=== PATIENT | female | born 1945 | race Caucasian/White ===

== ENCOUNTER 2019-03-11 13:16 | Outpatient (RCR) | payer SELFPAY | END 2019-03-26 00:01 | LOC: GILAB 13:16 | PROVIDERS: Visit Provider Nurse Practitioner Family | DX: D63.8 Anemia in other chronic diseases classified elsewhere (principal) | CPT/HCPCS: 36430; 86850; 86900; 86901; 86902; 86920 ×2; 86922 ×2; G0463; P9016 ×2 ==

== ENCOUNTER 2019-04-19 06:06 | Outpatient (RCR) | payer MEDICARE, SELFPAY ==
[2019-04-19] VITALS (16 sets, daily range): BP systolic 122–164; BP diastolic 50–98; PULSE 69–80; RESP 18; TEMP 36.2–36.8; O2SAT 98; BMI 27.9
== END 2019-04-26 23:59 | disposition home or self-care (01) ==
LOC: GILAB 06:06
PROVIDERS: Visit Provider Family Medicine
DX: K74.60 Unspecified cirrhosis of liver (principal); D50.0 Iron deficiency anemia secondary to blood loss (chronic)
CPT/HCPCS: 36430; 86850; 86900; P9016

== ENCOUNTER 2019-05-10 22:45 | Emergency (ER) | payer MEDICARE, SELFPAY ==
[2019-05-10 22:48] VITALS: BP 163/76; PULSE 101; RESP 18; TEMP 36.6; O2SAT 97; BMI 26.2
--- NOTE | 2019-05-10 23:04 | W.ED.GENADLT ---
Documented by User: HAZEL Chavez 05/10/19 23:42 HPI - General Adult General: Chief complaint: General Medical Stated complaint: LOW BLOOD COUNT Time Seen by Provider: 05/10/19 22:50 History of Present Illness: HPI narrative: Patient was called at home and told that she had a hemoglobin of 4 and was told to come to the ER. Patient had transfusion of 3 units 2 weeks ago. She has had a total life history of 30 units. She has cirrhosis and does not make red blood cells. Patient states that she last be transferred to [facility] in [place] for a blood transfusion due to antibodies in her blood. MD complaint: anemia Onset (ago): year(s) Associated symptoms: Deny chest pain, dyspnea, headache(s), nausea, rash or vomiting Review of Systems Const: Reports: other (Weakness); Denies: fever, chills or body aches Eyes: Denies: change in vision or blurry vision ENMT: Denies: throat pain or nasal congestion Card: Denies: chest pain or shortness of breath on exertion Resp: Denies: shortness of breath, productive cough or non-productive cough GI: Denies: abdominal pain, nausea or vomiting Musc: Denies: extremity pain Skin/Breast: Denies: rash Neuro: Denies: headache Psych: Denies: anxiety or depression Tej/Lymph: Denies: easy bruising PFSH ED PFSH: Social History Smoking and tobacco status: never smoked Physical Exam Const: COMMON NORMALS: no apparent distress, average body habitus and oriented x3 HENMT: COMMON NORMALS: normocephalic HEAD & SCALP: normal to inspection and normocephalic FACE & SINUS: normal facial exam Eye: GENERAL EYE: normal appearance of both eyes CONJUNCTIVA: Yes conjunctiva abnormal (Pale bilateral) Neck/C-Spine: COMMON NORMALS: no JVD Chest: COMMONS NORMALS: inspection of chest normal Resp: COMMON NORMALS: normal respiratory effort and clear to auscultation bilaterally AUSCULTATION: clear to auscultation bilaterally Cardio: COMMON NORMALS: no JVD, regular rate and regular rhythm RATE: regular rate RHYTHM: regular rhythm OTHER: Decreased cap refill GI: COMMON NORMALS: normal to inspection, nondistended, normoactive bowel sounds Extremity: COMMON NORMALS: normal to inspection and full ROM Neuro: COMMON NORMALS: oriented x3 Course Vital Signs: Vital signs: Vital Signs Temperature 98.6 F 05/11/19 00:34 Pulse Rate 77 05/11/19 00:34 Respiratory Rate 16 05/11/19 00:34 Blood Pressure 135/66 05/11/19 00:34 Pulse Oximetry 96 05/11/19 00:34 MDM - General Adult MDM Narrative: Medical decision making narrative: Discussed case with Dr. Chand. he is setting up transfer to [facility] for tranfusion that we cannot do here ( due to antibody complexities) Lab Data: Labs: Lab Results 05/10/19 Range/Units 23:12 WBC 1.9 L (4.0-10.0) 10^3/ uL RBC 2.36 L (4.1-5.3) 10^6/u L Hgb 4.4 L* (11.5-15.3) g/dL Hct 16.5 L* (37.0-47.0) % MCV 69.9 L (81-99) fL MCH 18.6 L (28.0-34.0) pg MCHC 26.7 L (30.0-36.0) g/dL RDW 19.8 H (12.1-15.1) % Plt Count 125 L (130-400) 10^3/c mm MPV 9.5 (7.4-10.4) fL Neut % (Auto) 45.7 % Lymph % (Auto) 35.6 % [place] % (Auto) 14.1 % Eos % (Auto) 3.1 % Baso % (Auto) 1.0 % Neut # (Auto) 0.9 L (1.8-7.7) 10^3/u L Lymph # (Auto) 0.7 L (0.8-4.8) 10^3/u L [place] # (Auto) 0.3 (0.2-0.9) 10^3/u L Eos # (Auto) 0.1 (0.0-0.8) 10^3/u L Baso # (Auto) 0.0 (0.0-0.1) 10^3/u L Nucleated RBC % (a uto) 0 % Nucleated RBCs # 0.0 /100WBC Discharge Plan Discharge Patient Disposition: Xfer Other Referrals: Anjel Diaz [Primary Care Provider] - Discharge Date/Time: 05/11/19 01:46 Coding Level of Care Code ED Flight Teacher for Chg Fwd Exam Comprehensive Documented by User: Alise Chand MD 05/11/19 02:53 HPI - General Adult General: Chief complaint: General Medical Stated complaint: LOW BLOOD COUNT Time Seen by Provider: 05/10/19 22:50 PFSH ED PFSH: Social History Smoking and tobacco status: never smoked Course Vital Signs: Vital signs: Vital Signs Temperature 98.6 F 05/11/19 00:34 Pulse Rate 77 05/11/19 00:34 Respiratory Rate 16 05/11/19 00:34 Blood Pressure 135/66 05/11/19 00:34 Pulse Oximetry 96 05/11/19 00:34 MDM - General Adult MDM Narrative: Medical decision making narrative: Patient presents here with anemia that is been chronic in nature. She has antibodies and we will have blood transfusion. She was gets transfusions at [facility]. I spoke to ER physician at [facility] and will transfer there for higher level of care for this transfusion. She has no signs of acute blood loss and her blood count has been normal here. Lab Data: Labs: Lab Results 05/10/19 Range/Units 23:12 WBC 1.9 L (4.0-10.0) 10^3/ uL RBC 2.36 L (4.1-5.3) 10^6/u L Hgb 4.4 L* (11.5-15.3) g/dL Hct 16.5 L* (37.0-47.0) % MCV 69.9 L (81-99) fL MCH 18.6 L (28.0-34.0) pg MCHC 26.7 L (30.0-36.0) g/dL RDW 19.8 H (12.1-15.1) % Plt Count 125 L (130-400) 10^3/c mm MPV 9.5 (7.4-10.4) fL Neut % (Auto) 45.7 % Lymph % (Auto) 35.6 % [place] % (Auto) 14.1 % Eos % (Auto) 3.1 % Baso % (Auto) 1.0 % Neut # (Auto) 0.9 L (1.8-7.7) 10^3/u L Lymph # (Auto) 0.7 L (0.8-4.8) 10^3/u L [place] # (Auto) 0.3 (0.2-0.9) 10^3/u L Eos # (Auto) 0.1 (0.0-0.8) 10^3/u L Baso # (Auto) 0.0 (0.0-0.1) 10^3/u L Nucleated RBC % (a uto) 0 % Nucleated RBCs # 0.0 /100WBC Discharge Plan Discharge Patient Disposition: Xfer Other Referrals: Anjel Diaz [Primary Care Provider] - Discharge Date/Time: 05/11/19 01:46 Coding Level of Care Code ED Flight Teacher for Chg Fwd Exam Comprehensive
[2019-05-10 23:19] LABS: Eosinophils # 0.1 10^3/uL (0.0-0.8); Eosinophils % 3.1 %; Lymphocytes # 0.7 10^3/uL (0.8-4.8); Lymphocytes % 35.6 %; Mean Corpuscular HGB Conc 26.7 g/dL (30.0-36.0); Mean Corpuscular Hemoglobin 18.6 pg (28.0-34.0); Mean Corpuscular Volume 69.9 fL (81-99); Mean Platelet Volume 9.5 fL (7.4-10.4); Monocytes # 0.3 10^3/uL (0.2-0.9); Monocytes % 14.1 %; Neutrophils # 0.9 10^3/uL (1.8-7.7); Neutrophils % 45.7 %; Nucleated Red Blood Cells % 0 %; Platelet Count 125 10^3/cmm (130-400); Red Blood Count 2.36 10^6/uL (4.1-5.3); Red Cell Distribution Width 19.8 % (12.1-15.1); White Blood Count 1.9 10^3/uL (4.0-10.0)
[2019-05-10 23:23] LABS: Hematocrit 16.5 % (37.0-47.0); Hemoglobin 4.4 g/dL (11.5-15.3)
[2019-05-11 00:34] VITALS: BP 135/66; PULSE 77; RESP 16; TEMP 37; O2SAT 96
== END 2019-05-11 01:46 | disposition other institution (70) ==
PROVIDERS: Nurse Practitioner Family; Emergency Provider Emergency Medicine
DX: D64.9 Anemia, unspecified (principal); K74.60 Unspecified cirrhosis of liver
CPT/HCPCS: 85025; 99281; 99283

== ENCOUNTER 2020-04-02 09:39 | Outpatient (RCR) | payer MEDICARE, SELFPAY ==
[2020-04-02] VITALS (10 sets, daily range): BP systolic 124–161; BP diastolic 56–94; PULSE 71–84; RESP 18–22; TEMP 36.5–37.3; O2SAT 98–99; BMI 25.7
[2020-04-02 10:07] LABS: Glucose Point of Care 295 mg/dL (70-110)
== END 2020-04-26 23:59 | disposition home or self-care (01) ==
LOC: OPS 09:39
PROVIDERS: Visit Provider Nurse Practitioner Family
DX: K74.60 Unspecified cirrhosis of liver (principal); R58 Hemorrhage, not elsewhere classified; E11.9 Type 2 diabetes mellitus without complications; Z79.4 Long term (current) use of insulin
CPT/HCPCS: 36415; 36416; 36430; 82962; 86850; 86900; 86920; P9016

== ENCOUNTER 2020-05-01 11:25 | Outpatient (CLI) | payer MEDICARE, SELFPAY ==
[2020-05-01 11:45] LABS: Mean Corpuscular HGB Conc 26.6 g/dL (30.0-36.0); Mean Corpuscular Hemoglobin 19.8 pg (28.0-34.0); Mean Corpuscular Volume 74.6 fL (81-99); Mean Platelet Volume 9.2 fL (7.4-10.4); Platelet Count 142 10^3/cmm (130-400); Red Blood Count 2.52 10^6/uL (4.1-5.3); White Blood Count 2.9 10^3/uL (4.0-10.0)
[2020-05-01 11:59] LABS: Hematocrit 18.8 % (37.0-47.0)
[2020-05-01 13:55] LABS: Absolute Segmented Neutrophil 1.9 10/cmm (1.6-7.1); Eosinophils 2 %; Hypochromasia 3+; Lymphocytes 23 %; Monocytes Absolute 0.3 10^3/cmm (0.1-0.6); Polychromasia 2+; Segmented Neutrophils 65 %; Total Cells Counted 100 (0-100)
[2020-05-01 13:56] LABS: Absolute Neutrophil 1.9 10^3/cmm (1.4-6.5); Platelet Estimate Normal (Normal)
== END 2020-05-01 11:26 | disposition home or self-care (01) ==
LOC: LAB 11:26
PROVIDERS: Visit Provider Nurse Practitioner Family
DX: D50.0 Iron deficiency anemia secondary to blood loss (chronic) (principal)
CPT/HCPCS: 36415; 85007; 85027; 86905

== ENCOUNTER 2020-05-02 08:26 | Observation (INO) | payer MEDICARE, SELFPAY ==
[2020-05-02] VITALS (12 sets, daily range): BP systolic 102–148; BP diastolic 46–78; PULSE 69–79; RESP 16–22; TEMP 36.8–37.1; O2SAT 92–97; BMI 26.6
--- NOTE | 2020-05-02 10:35 | PC.NURSE ---
1ST UNIT 1ST UNIT OF PRBC UP - VERIFIED PER COMPUTER VERIFICATIONN - INFUSION BEGAN AT 50ML/HR - ERWIN WELL UNIT [id number]
--- NOTE | 2020-05-02 13:51 | PC.NURSE ---
2ND UNIT OF PRBC 2ND UNIT OF PRBC BEGAN AT 50/HR - VSS - TOLERATED 1ST UNIT WITHOUT DIFFICULTY - WILL MONITOR UNIT # [id number]
[2020-05-02] MEDS: sodium chloride 0.9% (100 ml) 100 ML 125 ML ×3 (13:54→17:54)
--- NOTE | 2020-05-02 16:23 | PC.NURSE ---
3RD UNIT 3RD UNIT - TRANSFUSION BEGAN AT 50/HR - VSS - WILL CONTINUE TO MONITOR - UNIT #[id number]
--- NOTE | 2020-05-02 19:34 | PC.NURSE ---
TRANSFUSION END Blood finished and flushed with NS. IV was discontinued. VS check done. Pts called and will be here shortly. Pt wanted to go to ER to wait for him. Nurses aide took pt to ER via wheelchair. No c/o on discharge
== END 2020-05-02 19:45 | disposition home or self-care (01) ==
LOC: MEDSURG 08:28
PROVIDERS: Admitting Provider Internal Medicine; Visit Provider Nurse Practitioner Family
DX: D50.0 Iron deficiency anemia secondary to blood loss (chronic) (principal)
CPT/HCPCS: 36430; 86850; 86900; 86902; 86920; G0378; P9016

== ENCOUNTER 2020-06-01 11:29 | Outpatient (CLI) | payer MEDICARE, SELFPAY ==
[2020-06-01 12:06] LABS: Basophils # 0.1 10^3/uL (0.0-0.1); Basophils % 1.3 %; Eosinophils # 0.1 10^3/uL (0.0-0.8); Eosinophils % 1.8 %; Hematocrit 24.4 % (37.0-47.0); Hemoglobin 6.6 g/dL (11.5-15.3); Lymphocytes % 25.3 %; Mean Corpuscular Hemoglobin 19.4 pg (28.0-34.0); Mean Corpuscular Volume 71.8 fL (81-99); Mean Platelet Volume 9.1 fL (7.4-10.4); Monocytes # 0.4 10^3/uL (0.2-0.9); Monocytes % 11.1 %; Neutrophils # 2.36 10^3/uL (1.8-7.7); Neutrophils % 59.7 %; Nucleated Red Blood Cells % 0 %; Platelet Count 222 10^3/cmm (130-400); Red Cell Distribution Width 19.1 % (12.1-15.1)
[2020-06-01 12:59] LABS: Alanine Aminotransferase 13 U/L (0-33); Albumin Level 4.3 g/dL (3.5-5.2); Alkaline Phosphatase 90 IU/L (35-105); Anion Gap 17.9 (5-19); Aspartate Amino Transferase 20 U/L (0-32); Blood Urea Nitrogen 20 mg/dL (8-23); Calcium 9.4 mg/dL (8.5-10.5); Carbon Dioxide 20 mmol/L (22-29); Chloride 99 mmol/L (98-107); Free T4 Free Thyroxine 1.24 ng/dL (0.82-1.77); Globulin 3.6 g/dL (1.3-4.6); Glucose 284 mg/dL (65-115); Lipase 61 U/L (13-60); Osmolality Calculated 287 mOsm/kg (285-295); Potassium 4.9 mmol/L (3.5-5.1); Sodium 132 mmol/L (136-145); Thyroid Stimulating Hormone 0.96 uIU/mL (0.27-4.20); Total Bilirubin 0.7 mg/dL (0.15-1.2); Total Protein 7.9 g/dL (6.6-8.7)
== END 2020-06-01 11:30 | disposition home or self-care (01) ==
PROVIDERS: Visit Provider Nurse Practitioner Family
DX: I10 Essential (primary) hypertension (principal); E11.9 Type 2 diabetes mellitus without complications
CPT/HCPCS: 36415; 80053; 83690; 84439; 84443; 85025

== ENCOUNTER 2020-06-05 07:08 | Observation (INO) | payer MEDICARE, SELFPAY ==
[2020-06-04 12:23] LABS: Hematocrit 21.6 % (37.0-47.0)
[2020-06-04 12:33] LABS: Hemoglobin 5.6 g/dL (11.5-15.3)
[2020-06-05] VITALS (14 sets, daily range): BP systolic 117–141; BP diastolic 43–67; PULSE 74–81; RESP 16–18; TEMP 36.7–37.4; O2SAT 94–100
--- NOTE | 2020-06-05 07:09 | ED_ITS ---
HPI - General Adult General: Chief complaint: Recheck/Abnormal Lab/Rx Stated complaint: Surgical stated patient was to critical to treat Time Seen by Provider: 06/05/20 07:08 History of Present Illness: HPI narrative: 74-year-old female presents emergency room from outpatient surgery. Her hemoglobin drawn yesterday was 5.6. Patient is extremely hard of hearing and is difficult to get any significant history from her he does admit to getting regular transfusions although she cannot tell me why. 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 1 year ago she was transferred to [facility] from our ER because of difficulty with crossmatching blood. In the interim she was able to tell me she gets blood transfusion about monthly. Onset (ago): year(s) Relieving factors: none Exacerbating factors: none Associated symptoms: Deny chest pain, confusion, cough, diaphoresis, decreased appetite, dyspnea, fevers/chills, headache(s), malaise, nausea, rash, palpitations, seizures, short of breath, syncope, vomiting or weakness Treatments prior to arrival: none Review of Systems Const: Denies: malaise or diaphoresis ENMT: Denies: throat pain, ear or mastoid pain, nasal discharge or nasal congestion Card: Denies: chest pain, palpitations or syncope Resp: Denies: dyspnea GI: Denies: nausea or vomiting : Denies: flank pain, difficulty voiding, dysuria, urinary frequency or urinary urgency Skin/Breast: Denies: rash Neuro: Denies: headache(s) or confusion [facility] ED PFSH: Medical History Anemia AVM (arteriovenous malformation) of colon with hemorrhage MENARD (nonalcoholic steatohepatitis) Social History Smoking and tobacco status: never smoked Physical Exam Const: COMMON NORMALS: no acute distress GENERAL APPEARANCE: cooperative and comfortable ORIENTATION/CONSCIOUSNESS: Yes awake, Yes oriented to person, Yes oriented to place and Yes oriented to time HENMT: COMMON NORMALS: normocephalic, atraumatic and hearing grossly normal bilaterally HEAD & SCALP: normocephalic and atraumatic Neck/C-Spine: COMMON NORMALS: no JVD Resp: COMMON NORMALS: normal respiratory effort, No retractions, No use of accessory muscles and clear to auscultation bilaterally AUSCULTATION: clear to auscultation bilaterally Cardio: COMMON NORMALS: no JVD, regular rate, regular rhythm and No murmurs present (Cardio) RATE: regular rate RHYTHM: regular rhythm GI: COMMON NORMALS: Soft to palpation and No hepatosplenomegaly present AUSCULTATION: Yes normoactive bowel sounds PALPATION: Yes Soft to palpation, No Tenderness to palpation present (GI), No Guarding due to palpation present (GI) and Yes No hepatosplenomegaly present Extremity: COMMON NORMALS: normal to inspection, capillary refill normal, no clubbing, cyanosis or edema, no calf tenderness and no pedal edema Neuro: SENSORIUM/ORIENTATION: Yes oriented to person, Yes oriented to place and Yes oriented to time Skin: COMMON NORMALS: no rashes or lesions noted GENERAL SKIN EXAM: no rashes or lesions noted Course Vital Signs: Vital signs: Vital Signs Temperature 98.5 F 06/05/20 08:29 Pulse Rate 78 06/05/20 08:45 Respiratory Rate 18 06/05/20 08:45 Blood Pressure 117/48 06/05/20 08:45 Pulse Oximetry 97 06/05/20 08:45 MDM - General Adult MDM Narrative: Medical decision making narrative: Patient will be placed in outpatient a bed. The nurse practitioner already made arrangements-cross for 2 units. Unfortunately because of policy she cannot be transfused an outpatient a shawanda discussed Dr. Ceja will make her outpatient blood transfusion anticipate discharge. Also discussed with her primary caregiver so that in the future we can hopefully make this process more smooth for the patient and make her a direct outpatient to bed through the hospitalist program. Gave her the contact information for the hospitalist coordinator. Lab Data: Labs: Lab Results 06/04/20 06/04/20 06/05/20 Range/Units 11:45 11:45 07:30 WBC 2.8 L (4.0-10.0) 10^3/ uL RBC 3.03 L (4.1-5.3) 10^6/u L Hgb 5.6 L* 5.8 L* (11.5-15.3) g/dL Hct 21.6 L 21.3 L (37.0-47.0) % MCV 70.3 L (81-99) fL MCH 19.1 L (28.0-34.0) pg MCHC 27.2 L (30.0-36.0) g/dL RDW 18.4 H (12.1-15.1) % Plt Count 157 (130-400) 10^3/c mm MPV 8.9 (7.4-10.4) fL Neut % (Auto) 54.6 % Lymph % (Auto) 28.0 % [place] % (Auto) 11.6 % Eos % (Auto) 2.9 % Baso % (Auto) 1.8 % Neut # (Auto) 1.50 L (1.8-7.7) 10^3/u L Lymph # (Auto) 0.8 (0.8-4.8) 10^3/u L [place] # (Auto) 0.3 (0.2-0.9) 10^3/u L Eos # (Auto) 0.1 (0.0-0.8) 10^3/u L Baso # (Auto) 0.1 (0.0-0.1) 10^3/u L Nucleated RBC % (a uto) 0 % Nucleated RBCs # 0.0 /100WBC Sodium (136-145) mmol/L Potassium (3.5-5.1) mmol/L Chloride (98-107) mmol/L Carbon Dioxide (22-29) mmol/L Anion Gap (5-19) BUN (8-23) mg/dL Creatinine (0.5-0.9) mg/dL GFR Calculation Glucose (65-115) mg/dL Calculated Osmolal ity (285-295) mOsm/k g Calcium (8.5-10.5) mg/dL Total Bilirubin (0.15-1.2) mg/dL AST (0-32) U/L ALT (0-33) U/L Alkaline Phosphata se (35-105) IU/L Total Protein (6.6-8.7) g/dL Albumin (3.5-5.2) g/dL Globulin (1.3-4.6) g/dL Blood Type O Positive Rho(D) Type Positive / 4+ Antibody Screen Negative Crossmatch See Detail 03/12/21 Range/Units 07:30 WBC (4.0-10.0) 10^3/ uL RBC (4.1-5.3) 10^6/u L Hgb (11.5-15.3) g/dL Hct (37.0-47.0) % MCV (81-99) fL MCH (28.0-34.0) pg MCHC (30.0-36.0) g/dL RDW (12.1-15.1) % Plt Count (130-400) 10^3/c mm MPV (7.4-10.4) fL Neut % (Auto) % Lymph % (Auto) % [place] % (Auto) % Eos % (Auto) % Baso % (Auto) % Neut # (Auto) (1.8-7.7) 10^3/u L Lymph # (Auto) (0.8-4.8) 10^3/u L [place] # (Auto) (0.2-0.9) 10^3/u L Eos # (Auto) (0.0-0.8) 10^3/u L Baso # (Auto) (0.0-0.1) 10^3/u L Nucleated RBC % (a uto) % Nucleated RBCs # /100WBC Sodium 131 L (136-145) mmol/L Potassium 4.4 (3.5-5.1) mmol/L Chloride 99 (98-107) mmol/L Carbon Dioxide 21 L (22-29) mmol/L Anion Gap 15.4 (5-19) BUN 17 (8-23) mg/dL Creatinine 0.8 (0.5-0.9) mg/dL GFR Calculation Not Reportable Glucose 169 H (65-115) mg/dL Calculated Osmolal ity 277 L (285-295) mOsm/k g Calcium 9.1 (8.5-10.5) mg/dL Total Bilirubin 0.6 (0.15-1.2) mg/dL AST 19 (0-32) U/L ALT 12 (0-33) U/L Alkaline Phosphata se 79 (35-105) IU/L Total Protein 7.5 (6.6-8.7) g/dL Albumin 4.3 (3.5-5.2) g/dL Globulin 3.2 (1.3-4.6) g/dL Blood Type Rho(D) Type Antibody Screen Crossmatch Discharge Plan Discharge Patient Disposition: Placed in Observation Admit Provider: Yovanny Proctor Clinical Impression: MENARD (nonalcoholic steatohepatitis), Anemia, AVM (arteriovenous malformation) of colon with hemorrhage Condition: Stable Coding Level of Care Code ED Food [employer] Nutrition Services Supervisor for Erika Camacho
--- NOTE | 2020-06-05 07:18 | ECG_ITS ---
[facility] Test Date: 2020-06-05 Pat Name: Martha Moore Department: Room: Gender: Female Capsule Inspector: : 1945 Requested By: Ramone Parra Order Number: [id number] Reading MD: RIGO ALFORD Measurements Intervals [place] Rate: 79 P: 38 OK: 182 QRS: -25 QRSD: 100 T: 79 QT: 363 QTc: 418 Interpretive Statements SINUS RHYTHM LEFT VENTRICULAR HYPERTROPHY AND ST-T CHANGE [VOLTAGE CRITERIA PLUS ST/T ABNORMALITY] POSSIBLE ANTEROSEPTAL MYOCARDIAL INFARCTION , OF INDETERMINATE AGE [30 ms Q WAVE IN V1-V4] Compared to ECG 11/28/2018 04:17:55 Left ventricular hypertrophy now present ST (T wave) deviation now present Myocardial infarct finding now present T-wave abnormality no longer present Electronically Signed On 06-05-2020 19:24:48 LOCOMOTIVE OPERATOR by RIGO ALFORD [id number]
[2020-06-05 07:36] LABS: Basophils # 0.1 10^3/uL (0.0-0.1); Basophils % 1.8 %; Eosinophils # 0.1 10^3/uL (0.0-0.8); Eosinophils % 2.9 %; Hematocrit 21.3 % (37.0-47.0); Lymphocytes # 0.8 10^3/uL (0.8-4.8); Mean Corpuscular HGB Conc 27.2 g/dL (30.0-36.0); Mean Corpuscular Hemoglobin 19.1 pg (28.0-34.0); Mean Corpuscular Volume 70.3 fL (81-99); Mean Platelet Volume 8.9 fL (7.4-10.4); Monocytes # 0.3 10^3/uL (0.2-0.9); Monocytes % 11.6 %; Neutrophils % 54.6 %; Nucleated Red Blood Cells % 0 %; Platelet Count 157 10^3/cmm (130-400); Red Blood Count 3.03 10^6/uL (4.1-5.3); Red Cell Distribution Width 18.4 % (12.1-15.1); White Blood Count 2.8 10^3/uL (4.0-10.0)
[2020-06-05 07:37] LABS: Hemoglobin 5.8 g/dL (11.5-15.3)
[2020-06-05 08:00] LABS: Add Urine Microscopic? YES; Bilirubin Urine Neg (Negative); Blood Urine Neg (Negative); Glucose Urine UA Norm (Normal); Ketones Urine Negative (Negative); Leukocyte Esterase Urine 2+ (Negative); Nitrate Urine Negative (Negative); Protein Urine Neg (Negative); Urine Appearance SL Hazy (CLEAR); Urine Color Straw (Yellow); Urobilinogen Urine Norm (Negative); pH Urine 5 (5-7)
[2020-06-05 08:01] LABS: Add Urine Culture? Yes; Bacteria Urine 2+ /hpf; WBC Urine 25-40 /hpf (0-5)
[2020-06-05 08:05] LABS: Alanine Aminotransferase 12 U/L (0-33); Albumin Level 4.3 g/dL (3.5-5.2); Alkaline Phosphatase 79 IU/L (35-105); Anion Gap 15.4 (5-19); Aspartate Amino Transferase 19 U/L (0-32); Blood Urea Nitrogen 17 mg/dL (8-23); Calcium 9.1 mg/dL (8.5-10.5); Carbon Dioxide 21 mmol/L (22-29); Chloride 99 mmol/L (98-107); Globulin 3.2 g/dL (1.3-4.6); Glucose 169 mg/dL (65-115); Osmolality Calculated 277 mOsm/kg (285-295); Potassium 4.4 mmol/L (3.5-5.1); Sodium 131 mmol/L (136-145); Total Bilirubin 0.6 mg/dL (0.15-1.2); Total Protein 7.5 g/dL (6.6-8.7)
[2020-06-05] MEDS: sodium chloride 0.9% (100 ml) 100 ML ×2 (08:17→13:37)
[2020-06-05] MEDS: cefTRIAXone 1,000 MG in lidocaine 1% 2.1 ML 1 MG IM (08:38)
--- NOTE | 2020-06-05 14:09 | PC.NURSE ---
Patient discharged at this time, in the care of her son in stable condition. IV catheter removed tip intact. Patient tolerated well.
== END 2020-06-05 14:10 | disposition home or self-care (01) ==
LOC: ER 07:11 → MEDSURG 08:20
PROVIDERS: Admitting Provider Internal Medicine; Emergency Provider Family Medicine; PCP Nurse Practitioner Family; Visit Provider Internal Medicine
DX: K75.81 Nonalcoholic steatohepatitis (NASH) (principal); D63.8 Anemia in other chronic diseases classified elsewhere; Q27.33 Arteriovenous malformation of digestive system vessel
CPT/HCPCS: 36430; 80053; 81001; 85014; 85018; 85025; 86850; 86900; 86905; 86920; 87077; 87086; 87186; 93005; 96372; 99285; G0378; J0696; P9016

== ENCOUNTER → 2020-07-01 07:02 | Day surgery (SDC) | payer MEDICARE, SELFPAY ==
[2020-06-30 11:09] LABS: Hematocrit 22.7 % (37.0-47.0)
[2020-07-01] VITALS (12 sets, daily range): BP systolic 129–157; BP diastolic 52–69; PULSE 72–85; RESP 18–20; TEMP 36.1–36.6; O2SAT 96–99
[2020-07-01] MEDS: sodium chloride 0.9% (100 ml) 100 ML 10 ML (07:43)
[2020-07-01] MEDS: sodium chloride 0.9% 100 mL Bag IV (10:00)
--- NOTE | 2020-07-01 10:01 | PC.NURSE ---
First of three units of PRBC's complete. Pt tolerated well. VSS. Lungs clear. Second unit of PRBC's infusing without difficulty. Call light within reach.
--- NOTE | 2020-07-01 12:20 | PC.NURSE ---
Second unit of PRBC's complete. VSS. Lungs remain clear. Third and final unit infusing without difficulty. No signs of reaction noted. Pt just finished lunch and is resting in chair. Call light within reach.
== END ==
PROVIDERS: PCP Nurse Practitioner Family; Visit Provider Nurse Practitioner Family
DX: K74.60 Unspecified cirrhosis of liver (principal)
CPT/HCPCS: 36430; 85014; 85018; 86850; 86900; 86920; P9016

== ENCOUNTER 2020-07-20 08:36 | Outpatient (CLI) | payer MEDICARE, SELFPAY ==
[2020-07-20 09:09] LABS: Hematocrit 24.5 % (37.0-47.0); Mean Corpuscular HGB Conc 28.6 g/dL (30.0-36.0); Mean Corpuscular Hemoglobin 21.1 pg (28.0-34.0); Mean Platelet Volume 8.5 fL (7.4-10.4); Platelet Count 150 10^3/cmm (130-400); Red Blood Count 3.31 10^6/uL (4.1-5.3); Red Cell Distribution Width 21.5 % (12.1-15.1); White Blood Count 2.7 10^3/uL (4.0-10.0)
[2020-07-20 09:28] LABS: Absolute Neutrophil 1.8 10^3/cmm (1.4-6.5); Absolute Segmented Neutrophil 1.7 10/cmm (1.6-7.1); Band Neutrophils Absolute 0.1 10^3/cmm (0.0-1.2); Eosinophils 3 %; Lymphocytes 29 %; Lymphocytes Absolute 0.8 10^3/cmm (1.2-3.4); Monocytes Absolute 0.1 10^3/cmm (0.1-0.6); Platelet Estimate Decreased (Normal); Segmented Neutrophils 64 %; Total Cells Counted 100 (0-100)
== END 2020-07-20 08:37 | disposition home or self-care (01) ==
LOC: LAB 08:41
PROVIDERS: PCP Nurse Practitioner Family; Visit Provider Nurse Practitioner Family
DX: D50.0 Iron deficiency anemia secondary to blood loss (chronic) (principal)
CPT/HCPCS: 85007; 85027

== ENCOUNTER → 2020-07-22 06:43 | Day surgery (SDC) | payer MEDICARE, SELFPAY ==
[2020-07-22] VITALS (11 sets, daily range): BP systolic 125–149; BP diastolic 53–71; PULSE 69–83; RESP 16–18; TEMP 35.8–36.6; O2SAT 96–98
[2020-07-22] MEDS: sodium chloride 0.9% (100 ml) 100 ML 10 ML IV ×2 (07:30→09:20)
--- NOTE | 2020-07-22 11:28 | PC.NURSE ---
1121 Two units PRBC's infused without signs of reaction. VSS. Lungs clear. Pt states she feels well.
== END ==
PROVIDERS: PCP Nurse Practitioner Family; Visit Provider Nurse Practitioner Family
DX: K76.9 Liver disease, unspecified (principal)
CPT/HCPCS: 36415; 36430; 86850; 86900; 86920; P9016

== ENCOUNTER 2020-08-10 08:13 | Outpatient (CLI) | payer MEDICARE, SELFPAY ==
[2020-08-10 08:51] LABS: Basophils # 0.1 10^3/uL (0.0-0.1); Basophils % 1.8 %; Eosinophils # 0.1 10^3/uL (0.0-0.8); Eosinophils % 3.6 %; Hematocrit 27.2 % (37.0-47.0); Hemoglobin 7.7 g/dL (11.5-15.3); Lymphocytes # 0.7 10^3/uL (0.8-4.8); Lymphocytes % 25.1 %; Mean Corpuscular HGB Conc 28.3 g/dL (30.0-36.0); Mean Corpuscular Hemoglobin 21.6 pg (28.0-34.0); Mean Corpuscular Volume 76.4 fL (81-99); Mean Platelet Volume 8.9 fL (7.4-10.4); Monocytes # 0.3 10^3/uL (0.2-0.9); Neutrophils # 1.67 10^3/uL (1.8-7.7); Neutrophils % 59.8 %; Nucleated Red Blood Cells % 0 %; Platelet Count 141 10^3/cmm (130-400); Red Blood Count 3.56 10^6/uL (4.1-5.3); Red Cell Distribution Width 20.5 % (12.1-15.1); White Blood Count 2.8 10^3/uL (4.0-10.0)
== END 2020-08-10 08:14 | disposition home or self-care (01) ==
LOC: LAB 08:22
PROVIDERS: PCP Nurse Practitioner Family; Visit Provider Nurse Practitioner Family
DX: D50.0 Iron deficiency anemia secondary to blood loss (chronic) (principal)
CPT/HCPCS: 36415; 85025

== ENCOUNTER 2020-08-27 18:34 | Outpatient (CLI) | payer MEDICARE, SELFPAY ==
[2020-08-27] VITALS (11 sets, daily range): BP systolic 106–129; BP diastolic 50–70; PULSE 69–76; RESP 15–18; TEMP 25.5–37.1; O2SAT 94–97; BMI 26.6
[2020-08-27 12:39] LABS: Basophils % 0.9 %; Eosinophils # 0.1 10^3/uL (0.0-0.8); Eosinophils % 3.7 %; Lymphocytes # 0.5 10^3/uL (0.8-4.8); Lymphocytes % 25.2 %; Mean Corpuscular Hemoglobin 20.4 pg (28.0-34.0); Mean Corpuscular Volume 72.7 fL (81-99); Mean Platelet Volume 9.1 fL (7.4-10.4); Monocytes # 0.2 10^3/uL (0.2-0.9); Monocytes % 10.7 %; Neutrophils # 1.25 10^3/uL (1.8-7.7); Neutrophils % 58.6 %; Nucleated Red Blood Cells % 0 %; Platelet Count 114 10^3/cmm (130-400); Red Blood Count 2.75 10^6/uL (4.1-5.3); Red Cell Distribution Width 18.8 % (12.1-15.1); White Blood Count 2.1 10^3/uL (4.0-10.0)
[2020-08-27 13:07] LABS: C Reactive Protein 3.3 mg/L (0.0-4.9); Iron 8 ug/dL (37-145); Percent Saturation 2.1 % (20-50); Total Iron Binding Capacity 372 mcg/dl; Unsaturated Iron Binding 364 ug/dL (112-347)
[2020-08-27 13:30] LABS: Hemoglobin 5.6 g/dL (11.5-15.3)
[2020-08-27 13:40] LABS: Erythrocyte Sedimentation Rate 94 mm/hr (0-15)
--- NOTE | 2020-08-27 21:05 | W.ED.RECABL ---
HPI - Recheck/Abnormal Lab/Rx General: Chief Complaint: Recheck/Abnormal Lab/Rx Stated Complaint: phy ref/yao/abnormal labs Time Seen by Provider: 08/27/20 20:50 Source: patient Mode of arrival: ambulatory Limitations: no limitations History of Present Illness: HPI narrative: 74-year-old female who had blood work done today and her hemoglobin was 5. Patient seen appear to have blood transfusion. Her physician told her 3 units. She states she been having generalized weakness. She denies any vomiting diarrhea. She denies any blood in her stool. She states she is received multiple transfusions and they cannot figure out why she keeps getting anemic. 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 Colonoscopy showed multiple AVMs in the ascending and proximal transverse colon which were cauterized. Extensive diverticulosis with internal and external hemorrhoids were noted. LLOYD (nonalcoholic steatohepatitis) Portal hypertension EGD esophageal banding on 03/25/16 she has been transfused multiple times, Surgical History (Updated 08/27/20 @ 21:38 by Maritza Fitzpatrick MD) S/P endoscopy Family History (Updated 08/27/20 @ 21:39 by Maritza Fitzpatrick MD) Other Family history non-contributory Social History (Updated 08/27/20 @ 21:39 by Maritza Fitzpatrick MD) Smoking and tobacco status: never smoked Alcohol intake: never Substance/Drug Use: never Housing: House Physical Exam Const: COMMON NORMALS: no acute distress, patient oriented x3 and healthy appearing HENMT: COMMON NORMALS: normocephalic and atraumatic HEAD & SCALP: normocephalic and atraumatic Eye: COMMON NORMALS: Equal, round and reactive pupils present and EOMs intact bilaterally PUPIL: Yes Equal, round and reactive pupils present Neck/C-Spine: COMMON NORMALS: full ROM and supple Chest: COMMONS NORMALS: normal inspection of the chest and normal palpation of entire chest wall Resp: COMMON NORMALS: normal respiratory effort, No retractions, No use of accessory muscles and clear to auscultation bilaterally AUSCULTATION: clear to auscultation bilaterally Cardio: COMMON NORMALS: regular rate, regular rhythm and No murmurs present (Cardio) RATE: regular rate RHYTHM: regular rhythm GI: COMMON NORMALS: Normal to inspection, nondistended, normoactive bowel sounds present, Soft to palpation, non-tender and no masses PALPATION: Yes Soft to palpation Extremity: COMMON NORMALS: normal to inspection and full ROM Neuro: COMMON NORMALS: patient oriented x3, moves all extremities and no focal motor deficits Psych: COMMON NORMALS: mental status grossly normal, Normal thought process present and cooperative THOUGHT PROCESS: Normal thought process present Skin: COMMON NORMALS: no rashes or lesions noted and no wounds GENERAL SKIN EXAM: no rashes or lesions noted Course Vital Signs: Vital signs: Vital Signs Temperature 78 F L 08/27/20 19:18 Pulse Rate 76 08/27/20 19:18 Respiratory Rate 15 08/27/20 19:18 Blood Pressure 129/57 08/27/20 19:18 Pulse Oximetry 95 08/27/20 19:18 MDM - Recheck/Abnormal Lab/Rx MDM Narrative: Medical decision making narrative: Patient presents here with anemia I spoke to hospitalist will admit for transfusion. She has been stable while here patient's blood pressure here is normal. Lab Data: Labs: Lab Results 08/27/20 08/27/20 08/27/20 Range/Units 12:25 12:25 12:25 WBC 2.1 L (4.0-10.0) 10^3/ uL RBC 2.75 L (4.1-5.3) 10^6/u L Hgb 5.6 L* (11.5-15.3) g/dL Hct 20.0 L* (37.0-47.0) % MCV 72.7 L (81-99) fL MCH 20.4 L (28.0-34.0) pg MCHC 28.0 L (30.0-36.0) g/dL RDW 18.8 H (12.1-15.1) % Plt Count 114 L (130-400) 10^3/c mm MPV 9.1 (7.4-10.4) fL Neut % (Auto) 58.6 % Lymph % (Auto) 25.2 % [place] % (Auto) 10.7 % Eos % (Auto) 3.7 % Baso % (Auto) 0.9 % Neut # (Auto) 1.25 L (1.8-7.7) 10^3/u L Lymph # (Auto) 0.5 L (0.8-4.8) 10^3/u L [place] # (Auto) 0.2 (0.2-0.9) 10^3/u L Eos # (Auto) 0.1 (0.0-0.8) 10^3/u L Baso # (Auto) 0.0 (0.0-0.1) 10^3/u L Nucleated RBC % (a uto) 0 % Nucleated RBCs # 0.0 /100WBC ESR 94 H (0-15) mm/hr Iron 8 L (37-145) ug/dL TIBC 372 mcg/dl % Saturation 2.1 L (20-50) % Unsat Iron Binding 364 H (112-347) ug/dL C-Reactive Protein 3.3 (0.0-4.9) mg/L Blood Type Rho(D) Type Antibody Screen Crossmatch 08/27/20 Range/Units 12:25 WBC (4.0-10.0) 10^3/ uL RBC (4.1-5.3) 10^6/u L Hgb (11.5-15.3) g/dL Hct (37.0-47.0) % MCV (81-99) fL MCH (28.0-34.0) pg MCHC (30.0-36.0) g/dL RDW (12.1-15.1) % Plt Count (130-400) 10^3/c mm MPV (7.4-10.4) fL Neut % (Auto) % Lymph % (Auto) % [place] % (Auto) % Eos % (Auto) % Baso % (Auto) % Neut # (Auto) (1.8-7.7) 10^3/u L Lymph # (Auto) (0.8-4.8) 10^3/u L [place] # (Auto) (0.2-0.9) 10^3/u L Eos # (Auto) (0.0-0.8) 10^3/u L Baso # (Auto) (0.0-0.1) 10^3/u L Nucleated RBC % (a uto) % Nucleated RBCs # /100WBC ESR (0-15) mm/hr Iron (37-145) ug/dL TIBC mcg/dl % Saturation (20-50) % Unsat Iron Binding (112-347) ug/dL C-Reactive Protein (0.0-4.9) mg/L Blood Type O Positive Rho(D) Type Positive / 4+ Antibody Screen Negative Crossmatch See Detail Discharge Plan Discharge Admit Provider: Maritza Fitzpatrick Coding Level of Care Code ED Hat Lining Blocker for Michelleg Fwd Exam Comprehensive
[2020-08-27] MEDS: sodium chloride 0.9% (100 ml) 100 ML 25 ML (21:30)
[2020-08-27 21:35] LABS: Basophils % 1.2 %; Eosinophils # 0.1 10^3/uL (0.0-0.8); Eosinophils % 3.9 %; Lymphocytes # 0.8 10^3/uL (0.8-4.8); Lymphocytes % 29.8 %; Mean Corpuscular HGB Conc 27.3 g/dL (30.0-36.0); Mean Corpuscular Hemoglobin 20.1 pg (28.0-34.0); Mean Corpuscular Volume 73.5 fL (81-99); Mean Platelet Volume 9.9 fL (7.4-10.4); Monocytes # 0.3 10^3/uL (0.2-0.9); Monocytes % 10.6 %; Neutrophils # 1.38 10^3/uL (1.8-7.7); Neutrophils % 54.1 %; Nucleated Red Blood Cells % 0 %; Platelet Count 135 10^3/cmm (130-400); Red Blood Count 2.79 10^6/uL (4.1-5.3); Red Cell Distribution Width 19.2 % (12.1-15.1); White Blood Count 2.6 10^3/uL (4.0-10.0)
--- NOTE | 2020-08-27 21:35 | P.HP_ITS ---
Providers/Chief Complaint Primary Care Provider: Layla Paulson NP Chief Complaint: phy ref/yao/abnormal labs History of Present Illness Martha Moore is a 74 year old female past medical history significant for anemia, recurrent GI bleed hematochezia, had colonoscopy and endoscopy in the past, her GI bleed was secondary to AV malformations and a small area was cauterized during colonoscopy coming in today from her PCP clinic after abnormal CBC. Patient is stating that although she has history of AV malformation and GI bleed but lately she has not noticed any dark stools, bleed per rectum, hematemesis. Today she went to her PCP for follow-up appointment and CBC revealed hemoglobin 5.6. At home she is not noticing any chest pain, headache, dysuria or changes in bowel movement. She does get lethargic fatigue and shortness of breath on exertion otherwise no other significant symptoms. She will get 2 units PRBC, will need overnight admission the hospital for blood transfusion. Review of Systems Const: Reports: body aches and fatigue; Denies: fever(s) Eyes: Denies: change in vision ENMT: Denies: throat pain Card: Denies: chest pain Resp: Reports: dyspnea GI: Denies: abdominal pain : Denies: flank pain Musc: Denies: neck pain Skin/Breast: Denies: rash Neuro: Denies: headache(s) Psych: Denies: anxiety Endo: Denies: polyuria Tej/Lymph: Denies: easy bruising All/Imm: Denies: urticaria Medications/Allergies Home Medications Medication Instructions Recorded Confirmed Last Taken Type insulin glargine [Lantus U-100 See Rx Instructions .ROUTE .COMPLEX 04/19/19 08/27/20 08/27/20 History Insulin] acetaminophen [Tylenol Arthritis] 650 - 1,300 mg PO PRN 06/05/20 08/27/20 08/27/20 History amlodipine 10 mg PO DAILY@62906/05/20 08/27/20 08/27/20 History cholecalciferol (vitamin D3) 50 mcg PO DAILY 06/05/20 08/27/20 08/27/20 History [Vitamin D3] spironolactone 25 mg PO DAILY@62906/05/20 08/27/20 08/27/20 History [place] 3 3,000 units PO DAILY@62908/27/20 08/27/20 08/27/20 History Stool Softener 1 tab PO DAILY@30 08/27/20 08/27/20 08/27/20 History Allergies Allergy/AdvReac Type Severity Reaction Status Date / Time aspirin Allergy Unknown Verified 06/05/20 07:58 ciprofloxacin Allergy ALGY-Rash Verified 06/05/20 07:58 hydrocodone Allergy Unknown Verified 06/05/20 07:58 iodine Allergy ALGY-Hives Verified 06/05/20 07:58 meperidine [From Demerol] Allergy ADR-Nausea Verified 06/05/20 07:58 Sulfa (Sulfonamide Allergy ALGY-Rash Verified 06/05/20 07:58 Antibiotics) PFSH Acute PFSH: Medical History Abnormal colonoscopy Anemia 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 Colonoscopy showed multiple AVMs in the ascending and proximal transverse colon which were cauterized. Extensive diverticulosis with internal and external hemorrhoids were noted. MENARD (nonalcoholic steatohepatitis) Portal hypertension EGD esophageal banding on 03/25/16 she has been transfused multiple times, Surgical History S/P endoscopy Family History Other Family history non-contributory Social History Smoking and tobacco status: never smoked Alcohol intake: never Substance/Drug Use: never Housing: House Vitals/I&O/Wt Last Vital Signs Temp 78 F L 08/27/20 19:18 Pulse 76 08/27/20 19:18 Resp 15 08/27/20 19:18 BP 129/57 08/27/20 19:18 Pulse Ox 95 08/27/20 19:18 Weight last 48 hrs Weight 72.575 kg Physical Exam Narrative: EXAM NARRATIVE: Very pleasant elderly female Very hard of hearing Sinus rhythm no tachyarrhythmia on telemetry Soft abdomen no signs of peritonitis guarding or rigidity Clinically she does look fluid overloaded with 1+ pitting edema bilaterally Moist mucous membranes, does not look dehydrated EOMI, PERRLA no neurological deficit No acute respite distress no audible stridor or wheezing Very pleasant and cooperative during my evaluation No joint swelling Data : 08/27/20 21:27 08/27/20 21:27 A&P Assessment and plan (1) Anemia: Status: Acute Additional A&P Information Acute on chronic microcytic anemia History of GI bleed, AV malformation, patient is not on any antiplatelet or anticoagulating agent, no recent active bleeding noticed by the patient, she has leukopenia along anemia however platelet count is normal Check iron studies, 3 units PRBC She will need another EGD and colonoscopy outpatient currently she is hemodynamically stable no urgent endoscopy indicated Portal 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
[2020-08-27 21:58] LABS: Blood Urea Nitrogen 14 mg/dL (8-23); Calcium 8.4 mg/dL (8.5-10.5); Carbon Dioxide 21 mmol/L (22-29); Chloride 100 mmol/L (98-107); Creatinine Clr Calc Pharmacy 60.6503; Glucose 178 mg/dL (65-115); Osmolality Calculated 281 mOsm/kg (285-295); Sodium 133 mmol/L (136-145)
[2020-08-27 21:59] LABS: Anion Gap 17.4 (5-19); Potassium 5.4 mmol/L (3.5-5.1)
[2020-08-27 22:09] LABS: Hematocrit 20.5 % (37.0-47.0); Hemoglobin 5.6 g/dL (11.5-15.3)
[2020-08-28] VITALS (21 sets, daily range): BP systolic 94–144; BP diastolic 43–81; PULSE 63–77; RESP 12–24; TEMP 36.6–37.2; O2SAT 90–97
[2020-08-28 00:04] LABS: Ferritin 7 ng/mL (15-150)
[2020-08-28 00:18] LABS: Vitamin B12 655 pg/mL (232-1245)
[2020-08-28] MEDS: iron sucrose 500 MG in sodium chloride 0.9% 250 ML 68.8 MG IV (01:06)
[2020-08-28] MEDS: sodium chloride 0.9% (100 ml) 100 ML 25 ML (03:50)
[2020-08-28 06:00] LABS: Anion Gap 16.2 (5-19); Blood Urea Nitrogen 12 mg/dL (8-23); Calcium 8.2 mg/dL (8.5-10.5); Carbon Dioxide 21 mmol/L (22-29); Chloride 103 mmol/L (98-107); Creatinine Clr Calc Pharmacy 60.6503; Glucose 147 mg/dL (65-115); Osmolality Calculated 284 mOsm/kg (285-295); Potassium 4.2 mmol/L (3.5-5.1); Sodium 136 mmol/L (136-145)
[2020-08-28 06:21] LABS: Basophils % 1.5 %; Eosinophils # 0.1 10^3/uL (0.0-0.8); Hematocrit 24.1 % (37.0-47.0); Hemoglobin 6.9 g/dL (11.5-15.3); Lymphocytes # 0.7 10^3/uL (0.8-4.8); Lymphocytes % 32.7 %; Mean Corpuscular HGB Conc 28.6 g/dL (30.0-36.0); Mean Corpuscular Hemoglobin 21.8 pg (28.0-34.0); Mean Platelet Volume 9.6 fL (7.4-10.4); Monocytes # 0.2 10^3/uL (0.2-0.9); Monocytes % 11.6 %; Neutrophils % 48.7 %; Nucleated Red Blood Cells % 0 %; Platelet Count 112 10^3/cmm (130-400); Red Blood Count 3.17 10^6/uL (4.1-5.3); Red Cell Distribution Width 19.6 % (12.1-15.1)
[2020-08-28 06:35] LABS: Neutrophils # 0.97 10^3/uL (1.8-7.7)
[2020-08-28 06:36] LABS: Glucose Point of Care 176 mg/dL (70-110)
[2020-08-28] MEDS: amlodipine 10 mg Tablet PO (06:38)
[2020-08-28] MEDS: iron polysaccharide complex 150 mg Capsule PO (07:37)
[2020-08-28] MEDS: propranolol 20 mg Tablet 10 MG PO ×2 (08:32→16:54)
[2020-08-28] MEDS: cyanocobalamin 1,000 mcg Tablet 1000 MCG PO (08:32)
[2020-08-28] MEDS: pantoprazole DR 40 mg Tablet PO (08:32)
[2020-08-28 10:49] LABS: LAB Peripheral Smear Sent for Review
[2020-08-28 11:33] LABS: Glucose Point of Care 228 mg/dL (70-110)
[2020-08-28 16:26] LABS: Glucose Point of Care 176 mg/dL (70-110)
--- NOTE | 2020-08-28 18:30 | PC.NURSE ---
Doctor notified that patient did not want to wait to obtain lab work after blood was transfused. Doctor okayed this. Patients IV's were removed, patient notified of follow up appointment with Dr. Frost, VS stable upon departure. Patient left with son and was escorted out via wheelchair to ER. All patient belongings taken with her.
--- NOTE | 2020-08-28 21:07 | P.EN_ITS ---
Event Note Event Note: Patient admitted overnight in out patient bed. Recieved 3 units PRBC. Reviewed labs. hb 6.9 WBc- 2 Plt-112 Imaging concerning for spleenomegaly, possible varices Will order 1 more units PRBC Due to pancytopenia patirnt would benefit from hematology follow up as outpatient. Peripheral smear added to first labs from yesterday. Will order propanolol 10 mg TID on d/c Discussed all above with patient Event Notes Attestations Time Spent in Patient Care: Greater than 35 minutes (>than 50% of time spent in counselling and/or direct pt care on unit) .
== END 2020-08-28 18:35 | disposition home or self-care (01) ==
LOC: ER 20:50 → CSU 08-28 07:50 → ER 08-28 09:20 → OPCSU 08-28 09:21 → CSU 08-28 09:22
PROVIDERS: Internal Medicine; Emergency Provider Emergency Medicine; PCP Nurse Practitioner Family; Visit Provider Student in an Organized Health Care Education/Training Program
DX: D64.9 Anemia, unspecified (principal); E11.9 Type 2 diabetes mellitus without complications; Z79.4 Long term (current) use of insulin; I10 Essential (primary) hypertension; D61.818 Other pancytopenia
CPT/HCPCS: 36415; 36416; 36430; 80048; 80500; 82607; 82728; 82962; 83540; 83550; 85025; 85651; 86140; 86850; 86900; 86905; 86920; 96365; 96366; 96372; 97116; 97161; J1756; J1815; J7050; P9016

== ENCOUNTER 2020-09-21 07:41 | Outpatient (CLI) | payer MEDICARE, SELFPAY ==
[2020-09-21 08:27] LABS: Hematocrit 31.2 % (37.0-47.0); Hemoglobin 9.4 g/dL (11.5-15.3); Mean Corpuscular HGB Conc 30.1 g/dL (30.0-36.0); Mean Corpuscular Hemoglobin 24.5 pg (28.0-34.0); Mean Corpuscular Volume 81.3 fL (81-99); Mean Platelet Volume 9.9 fL (7.4-10.4); Platelet Count 150 10^3/cmm (130-400); Red Blood Count 3.84 10^6/uL (4.1-5.3); Red Cell Distribution Width 21.2 % (12.1-15.1); White Blood Count 3.8 10^3/uL (4.0-10.0)
[2020-09-21 09:37] LABS: Absolute Eosinophils 0.1 10^3/cmm (0.0-0.7); Absolute Segmented Neutrophil 2.5 10/cmm (1.6-7.1); Band Neutrophils Absolute 0.1 10^3/cmm (0.0-1.2); Eosinophils 5 %; Lymphocytes 21 %; Lymphocytes Absolute 0.8 10^3/cmm (1.2-3.4); Monocytes Absolute 0.2 10^3/cmm (0.1-0.6); Segmented Neutrophils 66 %; Total Cells Counted 100 (0-100)
[2020-09-21 09:38] LABS: Absolute Neutrophil 2.6 10^3/cmm (1.4-6.5); Anisocytosis Trace; Platelet Estimate Normal (Normal)
== END 2020-09-21 07:42 | disposition home or self-care (01) ==
LOC: LAB 07:49
PROVIDERS: PCP Nurse Practitioner Family; Visit Provider Nurse Practitioner Family
DX: D50.0 Iron deficiency anemia secondary to blood loss (chronic) (principal)
CPT/HCPCS: 85007; 85027

== ENCOUNTER 2020-09-23 07:14 | Outpatient (CLI) | payer MEDICARE, SELFPAY ==
[2020-09-23 08:10] LABS: Alanine Aminotransferase 13 U/L (0-33); Albumin Level 4.1 g/dL (3.5-5.2); Alkaline Phosphatase 86 IU/L (35-105); Anion Gap 15.2 (5-19); Aspartate Amino Transferase 19 U/L (0-32); Blood Urea Nitrogen 34 mg/dL (8-23); C Reactive Protein 2.7 mg/L (0.0-4.9); Carbon Dioxide 23 mmol/L (22-29); Chloride 102 mmol/L (98-107); Globulin 3.1 g/dL (1.3-4.6); Glucose 246 mg/dL (65-115); Magnesium 1.9 mg/dL (1.7-2.3); Osmolality Calculated 298 mOsm/kg (285-295); Potassium 4.2 mmol/L (3.5-5.1); Sodium 136 mmol/L (136-145); Total Bilirubin 0.7 mg/dL (0.15-1.2); Total Protein 7.2 g/dL (6.6-8.7)
[2020-09-23 08:59] LABS: Erythrocyte Sedimentation Rate 54 mm/hr (0-15)
[2020-09-24 12:26] LABS: Lyme AB Screen <0.90 index
[2020-09-26 17:31] LABS: RMSF IGG NOT DETECTED; RMSF IGM NOT DETECTED
[2020-10-01 09:22] LABS: E. Chaffeensis AB IGG <1:64; E. Chaffeensis AB IGM <1:20
== END 2020-09-23 07:15 | disposition home or self-care (01) ==
PROVIDERS: PCP Nurse Practitioner Family; Visit Provider Nurse Practitioner Family
DX: M25.50 Pain in unspecified joint (principal)
CPT/HCPCS: 36415; 80053; 83735; 85651; 86140; 86618; 86666; 86757

== ENCOUNTER 2020-10-20 06:33 | Outpatient (CLI) | payer MEDICARE, SELFPAY ==
[2020-10-19 09:26] LABS: Basophils % 0.8 %; Eosinophils # 0.1 10^3/uL (0.0-0.8); Eosinophils % 2.5 %; Hematocrit 21.5 % (37.0-47.0); Lymphocytes # 0.7 10^3/uL (0.8-4.8); Lymphocytes % 27.9 %; Mean Corpuscular HGB Conc 27.9 g/dL (30.0-36.0); Mean Corpuscular Hemoglobin 21.3 pg (28.0-34.0); Mean Corpuscular Volume 76.2 fL (81-99); Monocytes # 0.3 10^3/uL (0.2-0.9); Monocytes % 12.9 %; Neutrophils # 1.33 10^3/uL (1.8-7.7); Neutrophils % 55.5 %; Nucleated Red Blood Cells % 0 %; Platelet Count 136 10^3/cmm (130-400); Red Blood Count 2.82 10^6/uL (4.1-5.3); Red Cell Distribution Width 20.7 % (12.1-15.1); White Blood Count 2.4 10^3/uL (4.0-10.0)
[2020-10-19 09:47] LABS: Alanine Aminotransferase 10 U/L (0-33); Albumin Level 4.2 g/dL (3.5-5.2); Alkaline Phosphatase 81 IU/L (35-105); Anion Gap 17.6 (5-19); Aspartate Amino Transferase 16 U/L (0-32); Blood Urea Nitrogen 22 mg/dL (8-23); Calcium 9.5 mg/dL (8.5-10.5); Carbon Dioxide 22 mmol/L (22-29); Chloride 103 mmol/L (98-107); Glucose 185 mg/dL (65-115); Osmolality Calculated 294 mOsm/kg (285-295); Potassium 4.6 mmol/L (3.5-5.1); Sodium 138 mmol/L (136-145); Total Bilirubin 0.5 mg/dL (0.15-1.2); Total Protein 7.2 g/dL (6.6-8.7)
[2020-10-19 10:05] LABS: Estmated Average Glucose 163; Hemoglobin A1C 7.3 % (4.0-6.0)
[2020-10-20 06:52] VITALS: BP 138/54; PULSE 83; RESP 18; TEMP 36.6; O2SAT 99
--- NOTE | 2020-10-20 07:45 | PC.NURSE ---
Blood not available and ordered from [place] this AM. Units to arrive late afternoon. Transfusion rescheduled for tomorrow 10/21/20.
--- NOTE | 2020-10-20 09:00 | PC.NURSE ---
HAZEL Dupont notified that blood not available and transfusion rescheduled for tomorrow, 10/21/20.
[2020-10-21] VITALS (9 sets, daily range): BP systolic 116–131; BP diastolic 51–61; PULSE 70–79; RESP 18; TEMP 36.3–36.8; O2SAT 97–98
--- NOTE | 2020-10-21 07:00 | PC.NURSE ---
Pt returned for blood transfusion. AxO x 3. VSS. Denies SOB or excessive fatigue. Pt ambulatory. Two units PRBC's to infuse.
[2020-10-21] MEDS: sodium chloride 0.9% (100 ml) 100 ML 10 ML ×2 (07:39→09:39)
--- NOTE | 2020-10-21 09:10 | PC.NURSE ---
Second unit PRBC's infusing without difficulty. No reaction noted. VSS.
== END 2020-10-20 06:34 ==
LOC: GILAB 06:33
PROVIDERS: PCP Nurse Practitioner Family; Visit Provider Nurse Practitioner Family
DX: K74.60 Unspecified cirrhosis of liver (principal); I10 Essential (primary) hypertension; E11.9 Type 2 diabetes mellitus without complications
CPT/HCPCS: 36415; 36430; 80053; 83036; 85025; 86850; 86870; 86900; 86920; P9016

== ENCOUNTER 2020-11-17 07:11 | Outpatient (CLI) | payer MEDICARE, SELFPAY ==
[2020-11-17 07:46] LABS: Eosinophils # 0.1 10^3/uL (0.0-0.8); Eosinophils % 5.3 %; Hematocrit 27.9 % (37.0-47.0); Hemoglobin 7.8 g/dL (11.5-15.3); Lymphocytes # 0.6 10^3/uL (0.8-4.8); Lymphocytes % 28.5 %; Mean Corpuscular Hemoglobin 20.9 pg (28.0-34.0); Mean Corpuscular Volume 74.8 fl (81-99); Mean Platelet Volume 8.8 fL (7.4-10.4); Monocytes # 0.3 10^3/uL (0.2-0.9); Monocytes % 14.5 %; Neutrophils # 1.04 10^3/uL (1.8-7.7); Neutrophils % 50.2 %; Nucleated Red Blood Cells % 0 %; Platelet Count 127 10^3/cmm (130-400); Red Blood Count 3.73 10^6/uL (4.1-5.3); White Blood Count 2.1 10^3/uL (4.0-10.0)
[2020-11-17 08:13] LABS: Alanine Aminotransferase 12 U/L (0-33); Albumin Level 4.3 g/dL (3.5-5.2); Alkaline Phosphatase 98 IU/L (35-105); Anion Gap 14.5 (5-19); Aspartate Amino Transferase 20 U/L (0-32); Blood Urea Nitrogen 16 mg/dL (8-23); Carbon Dioxide 24 mmol/L (22-29); Chloride 101 mmol/L (98-107); Globulin 3.2 g/dL (1.3-4.6); Glucose 203 mg/dL (65-115); Osmolality Calculated 287 mOsm/kg (285-295); Potassium 4.5 mmol/L (3.5-5.1); Sodium 135 mmol/L (136-145); Total Bilirubin 0.7 mg/dL (0.15-1.2); Total Protein 7.5 g/dL (6.6-8.7)
[2020-11-17 08:15] LABS: Estmated Average Glucose 174; Hemoglobin A1C 7.7 % (4.0-6.0)
== END 2020-11-17 07:12 | disposition home or self-care (01) ==
LOC: LAB 07:21
PROVIDERS: PCP Nurse Practitioner Family; Visit Provider Nurse Practitioner Family
DX: I10 Essential (primary) hypertension (principal); E11.9 Type 2 diabetes mellitus without complications
CPT/HCPCS: 36415; 80053; 83036; 85025

== ENCOUNTER → 2020-11-27 07:04 | Day surgery (SDC) | payer MEDICARE, SELFPAY ==
[2020-11-26 14:33] LABS: Basophils % 1.2 %; Eosinophils # 0.1 10^3/uL (0.0-0.8); Eosinophils % 2.4 %; Hematocrit 22.3 % (37.0-47.0); Lymphocytes # 0.9 10^3/uL (0.8-4.8); Mean Corpuscular HGB Conc 27.8 g/dL (30.0-36.0); Mean Corpuscular Hemoglobin 20.7 pg (28.0-34.0); Mean Corpuscular Volume 74.3 fl (81-99); Mean Platelet Volume 9.2 fL (7.4-10.4); Monocytes # 0.4 10^3/uL (0.2-0.9); Monocytes % 10.9 %; Neutrophils # 1.95 10^3/uL (1.8-7.7); Neutrophils % 58.9 %; Nucleated Red Blood Cells % 0 %; Platelet Count 150 10^3/cmm (130-400); White Blood Count 3.3 10^3/uL (4.0-10.0)
[2020-11-26 14:46] LABS: Hemoglobin 6.2 g/dL (11.5-15.3)
[2020-11-27] VITALS (10 sets, daily range): BP systolic 138–159; BP diastolic 58–76; PULSE 71–79; RESP 18; TEMP 35.9–36.6; O2SAT 99–100; BMI 25.0
[2020-11-27] MEDS: sodium chloride 0.9% (100 ml) 100 ML 10 ML ×2 (10:00→11:43)
== END ==
LOC: OPS 07:06 → GILAB 08:04
PROVIDERS: PCP Nurse Practitioner Family; Visit Provider Nurse Practitioner Family
DX: D50.0 Iron deficiency anemia secondary to blood loss (chronic) (principal)
CPT/HCPCS: 36430; 85025; 86850; 86870; 86900; 86902; 86920; P9016; P9051

== ENCOUNTER 2020-12-16 11:17 | Outpatient (CLI) | payer MEDICARE, SELFPAY ==
[2020-12-16 12:38] LABS: Mean Corpuscular HGB Conc 26.8 g/dL (30.0-36.0); Mean Corpuscular Hemoglobin 19.8 pg (28.0-34.0); Mean Corpuscular Volume 73.6 fl (81-99); Mean Platelet Volume 9.1 fL (7.4-10.4); Platelet Count 118 10^3/cmm (130-400); Red Blood Count 2.58 10^6/uL (4.1-5.3); Red Cell Distribution Width 19.8 % (12.1-15.1); White Blood Count 2.4 10^3/uL (4.0-10.0)
[2020-12-16 12:57] LABS: Hemoglobin 5.1 g/dL (11.5-15.3); Total Cells Counted 50 (0-100)
[2020-12-16 12:58] LABS: Absolute Neutrophil 0.8 10^3/cmm (1.4-6.5); Absolute Segmented Neutrophil 0.7 10/cmm (1.6-7.1); Band Neutrophils Absolute 0.1 10^3/cmm (0.0-1.2); Eosinophils 3 %; Hypochromasia 2+; Lymphocytes 10 %; Monocytes Absolute 0.1 10^3/cmm (0.1-0.6); Platelet Estimate Decreased (Normal); Segmented Neutrophils 29 %
[2020-12-16 12:59] LABS: Anisocytosis 1+; Microcytosis 1+; Ovalocytes 1+; Poikilocytosis 1+; Spherocytes Trace; Tear Drop Cells 1+
== END 2020-12-16 11:18 | disposition home or self-care (01) ==
LOC: LAB 11:21
PROVIDERS: PCP Nurse Practitioner Family; Visit Provider Nurse Practitioner Family
DX: D50.0 Iron deficiency anemia secondary to blood loss (chronic) (principal)
CPT/HCPCS: 36415; 85007; 85027

== ENCOUNTER → 2020-12-17 07:35 | Day surgery (SDC) | payer MEDICARE, SELFPAY ==
[2020-12-17] VITALS (13 sets, daily range): BP systolic 129–180; BP diastolic 56–76; PULSE 63–80; RESP 16–20; TEMP 36.1–36.8; O2SAT 96–99; BMI 27.3
[2020-12-17] MEDS: sodium chloride 0.9% (100 ml) 100 ML 125 ML ×3 (08:14→12:32)
== END ==
PROVIDERS: PCP Nurse Practitioner Family; Visit Provider Nurse Practitioner Family
DX: K74.60 Unspecified cirrhosis of liver (principal); D50.0 Iron deficiency anemia secondary to blood loss (chronic)
CPT/HCPCS: 36430; 86850; 86900; 86920; P9016

== ENCOUNTER 2021-01-04 10:55 | Outpatient (CLI) | payer MEDICARE, SELFPAY ==
[2021-01-04 11:25] LABS: Hematocrit 22.1 % (37.0-47.0); Mean Corpuscular HGB Conc 27.6 g/dL (30.0-36.0); Mean Corpuscular Volume 75.9 fl (81-99); Mean Platelet Volume 8.6 fL (7.4-10.4); Platelet Count 188 10^3/cmm (130-400); Red Blood Count 2.91 10^6/uL (4.1-5.3); Red Cell Distribution Width 20.9 % (12.1-15.1); White Blood Count 2.9 10^3/uL (4.0-10.0)
[2021-01-04 12:21] LABS: Vitamin B12 980 pg/mL (232-1245)
[2021-01-04 12:45] LABS: Eosinophils 2 %; Lymphocytes 29 %; Platelet Estimate Decreased (Normal); Segmented Neutrophils 66 %; Total Cells Counted 100 (0-100)
[2021-01-04 14:54] LABS: Hemoglobin 6.1 g/dL (11.5-15.3)
== END 2021-01-04 10:56 | disposition home or self-care (01) ==
PROVIDERS: PCP Nurse Practitioner Family; Visit Provider Family Medicine
DX: D50.0 Iron deficiency anemia secondary to blood loss (chronic) (principal)
CPT/HCPCS: 36415; 82607; 84207; 85007; 85027; 86870; 86905

== ENCOUNTER → 2021-01-05 06:56 | Day surgery (SDC) | payer MEDICARE, SELFPAY ==
[2021-01-05] VITALS (11 sets, daily range): BP systolic 117–185; BP diastolic 54–92; PULSE 67–85; RESP 18; TEMP 36.3–36.9; O2SAT 18–98
[2021-01-05] MEDS: sodium chloride 0.9% (100 ml) 100 ML 10 ML ×3 (07:20→12:01)
--- NOTE | 2021-01-05 08:58 | PC.NURSE ---
Second unit PRBC's infusing without difficulty. No reaction noted. Pt to receive 3 units today for Hg 6.1. VSS. Tolerating well.
--- NOTE | 2021-01-05 12:34 | PC.NURSE ---
Third unit PRBC's infused. No reaction noted. Lungs CTA. VSS. Pt tolerated well.
== END ==
PROVIDERS: PCP Nurse Practitioner Family; Visit Provider Family Medicine
DX: D50.0 Iron deficiency anemia secondary to blood loss (chronic) (principal)
CPT/HCPCS: 36415; 36430; 82607; 84207; 85007; 85027; 86850; 86870; 86900; 86905; 86920; P9016

== ENCOUNTER 2021-01-25 08:50 | Outpatient (CLI) | payer MEDICARE, SELFPAY | END 2021-01-25 08:51 | disposition home or self-care (01) | PROVIDERS: PCP Nurse Practitioner Family; Visit Provider Nurse Practitioner Family | DX: D50.0 Iron deficiency anemia secondary to blood loss (chronic) (principal) | CPT/HCPCS: 36415; 85025; 86850; 86900 ==

== ENCOUNTER → 2021-01-26 07:06 | Day surgery (SDC) | payer MEDICARE, SELFPAY ==
[2021-01-25 09:25] LABS: Basophils % 0.8 %; Eosinophils # 0.1 10^3/uL (0.0-0.8); Eosinophils % 1.9 %; Lymphocytes # 0.7 10^3/uL (0.8-4.8); Lymphocytes % 27.6 %; Mean Corpuscular Hemoglobin 19.3 pg (28.0-34.0); Mean Corpuscular Volume 74.3 fl (81-99); Mean Platelet Volume 9.1 fL (7.4-10.4); Monocytes # 0.4 10^3/uL (0.2-0.9); Monocytes % 13.8 %; Neutrophils # 1.43 10^3/uL (1.8-7.7); Neutrophils % 54.8 %; Nucleated Red Blood Cells % 0 %; Platelet Count 142 10^3/cmm (130-400); Red Blood Count 2.69 10^6/uL (4.1-5.3); Red Cell Distribution Width 20.3 % (12.1-15.1); White Blood Count 2.6 10^3/uL (4.0-10.0)
[2021-01-25 09:53] LABS: Hemoglobin 5.2 g/dL (11.5-15.3)
[2021-01-26] VITALS (12 sets, daily range): BP systolic 121–148; BP diastolic 49–79; PULSE 67–74; RESP 18; TEMP 36.1–36.8; O2SAT 94–98
[2021-01-26] MEDS: sodium chloride 0.9% (100 ml) 100 ML 10 ML ×3 (09:48→12:44)
== END ==
PROVIDERS: PCP Nurse Practitioner Family; Visit Provider Nurse Practitioner Family
DX: D64.9 Anemia, unspecified (principal)
CPT/HCPCS: 36415; 36430; 85025; 86850; 86900; 86920; P9016; P9051

== ENCOUNTER 2021-02-28 09:25 | Observation (INO) | payer MEDICARE, SELFPAY ==
[2021-02-28] VITALS (20 sets, daily range): BP systolic 121–155; BP diastolic 48–75; PULSE 68–79; RESP 16–20; TEMP 36.4–37.2; O2SAT 2–95; BMI 25.7; BMI 30.8
--- NOTE | 2021-02-28 09:48 | XRR_ITS ---
PROCEDURE INFORMATION: Exam: XR Chest Exam date and time: 02/28/2021 9:48 AM Age: 75 years old Clinical indication: Dyspnea TECHNIQUE: Imaging protocol: XR of the chest. Views: 1 view. Total images: 1 COMPARISON: CR Chest 1 [place] [id number] 11/28/2018 4:03 AM FINDINGS: Lungs: Pulmonary vascular congestion. Nonspecific left basilar opacities, edema and/or pneumonia. Streaky right basilar opacity favors atelectasis. Pleural spaces: Unremarkable. No pleural effusion. No pneumothorax. Heart/Mediastinum: Cardiomegaly. Vasculature: Atherosclerosis is evident. Bones/joints: Osseous structures are unchanged from the prior exam. XR/XR chest 1V portable [id number] IMPRESSION: 1. Cardiomegaly with pulmonary vascular congestion. 2. Nonspecific left basilar opacities, edema and/or pneumonia. 3. Streaky right basilar opacity favors atelectasis. Radiation Dose CTDIVOL = (mGy): DLP = (mGy-cm)
--- NOTE | 2021-02-28 09:48 | ECG_ITS ---
[facility] Test Date: 2021-02-28 Pat Name: Martha Moore Department: Room: Gender: Female Stain Sprayer: : 1945 Requested By: Reynold Parnell Order Number: [id number] Santiago MD: Atif Mendenhall M.D. Measurements Intervals [place] Rate: 72 P: 47 [place]: 177 QRS: -35 QRSD: 95 T: 55 QT: 416 QTc: 455 Interpretive Statements SINUS RHYTHM LEFT AXIS DEVIATION [QRS AXIS < -30] MINIMAL VOLTAGE CRITERIA FOR LVH, CONSIDER NORMAL VARIANT [MEETS CRITERIA IN ONE OF: R(aVL), S(V1), R(V5), R(V5/V6)+S(V1)] ANTEROSEPTAL MYOCARDIAL INFARCTION , PROBABLY OLD [40+ ms Q WAVE IN V1-V4] Compared to ECG 06/05/2020 07:44:10 Left-axis deviation now present ST (T wave) deviation no longer present Myocardial infarct finding still present Electronically Signed On 02-28-2021 13:14:50 COSMETICS COUNTER MANAGER by Atif Mendenhall M.D. [id number]
--- NOTE | 2021-02-28 09:52 | ED_ITS ---
HPI - General Adult General: Chief complaint: Abdominal Pain Stated complaint: WEAKNESS Time Seen by Provider: 02/28/21 09:34 History of Present Illness: HPI narrative: Patient is a 75-year-old female with a history of AVM of the colon, cerebral aneurysm, diabetes and GI bleed presenting to the emergency room for concerns of generalized weakness and abdominal pain x 4 days. Patient tells me that she recently underwent cardiac surgery on Monday. Since the surgery, patient has been feeling increasingly lightheaded. Patient thinks that her hemoglobin may be running low. Patient also reports right-sided dental pain and back pain denies any history of kidney stones, melena/hematochezia, diarrhea, nausea/vomiting, fever or chills. Patient has no associated chest pain, lightheadedness or syncope. No urinary symptoms. No hx of kidney stones. Onset: 4 days Duration:4 days Location:home Severity:moderate Review of Systems Narrative: Constitutional: No fever, no chills. HEENT: No vision changes CV: No chest pain, no palpitations PULM: no cough, no dyspnea. GI: + R sided abdominal pain, no N/V/D. : No dysuria MSKEL: No muscle pain SKIN: No new rashes, no lesions. NEURO: No headache, no focal weakness. 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 Colonoscopy showed multiple AVMs in the ascending and proximal transverse colon which were cauterized. Extensive diverticulosis with internal and external hemorrhoids were noted. LLOYD (nonalcoholic steatohepatitis) Portal hypertension EGD esophageal banding on 03/25/16 she has been transfused multiple times, Surgical History S/P endoscopy Family History Other Family history non-contributory Social History Smoking and tobacco status: never smoked Alcohol intake: never Housing: House Physical Exam Narrative: EXAM NARRATIVE: Head: Atraumatic Eyes: PERRL, conjunctiva without injection ENT: Mucous membrane moist NECK: Supple, ROM intact LUNGS: LCTAB, no crackles/rhonchi CV: RRR ABDOMEN: Soft, +mild abd distension, no focal TTP. NO guarding rebound, guarding, rigidity. No CVA tenderness to percussion. Neg Palomares/Neg McBurney's point tenderness, no suprabupic tenderness to palpation. EXTREMITY: Normal ROM SKIN: No rash or erythema NEURO: Awake and alert, no focal motor deficits PSYCH: Normal mood and affect Course Vital Signs: Vital signs: Vital Signs Temperature 97.6 F 02/28/21 09:33 Pulse Rate 68 02/28/21 10:43 Respiratory Rate 18 02/28/21 09:33 Blood Pressure 148/68 02/28/21 10:43 Pulse Oximetry 90 02/28/21 10:43 MDM - General Adult MDM Narrative: Medical decision making narrative: 75-year-old female history of GI bleeding, colonic AVM presenting to the emergency room for evaluation of analyzed weakness and abdominal pain x4 days. No, no conjunctival pallor noted. + Abdominal distention. Workup: CBC, CMP, Lipase, UA, PT/PTT/INR, type and screen Was found to have a hemoglobin of 4.9. Patient denies any melena or hematochezia. Hemodynamically stable. Patient will need transfusion possible colonoscopy for evaluation of AV malformation in the colon. Disposition: Admission Lab Data: Labs: Lab Results 02/28/21 02/28/21 10:00 10:00 WBC 2.3 10^3/uL L 10^ 3/uL (4.0-10.0) RBC 2.70 10^6/uL L 10 ^6/uL (4.1-5.3) Hgb 4.9 g/dL L* g/dL (11.5-15.3) Hct 18.8 % L* % (37.0-47.0) MCV 69.6 fl L fl (81-99) MCH 18.1 pg L pg (28.0-34.0) MCHC 26.1 g/dL L g/dL (30.0-36.0) RDW 19.3 % H % (12.1-15.1) Plt Count 126 10^3/cmm L 10 ^3/cmm (130-400) MPV 9.4 fL fL (7.4-10.4) Neut % (Auto) 69.8 % % Lymph % (Auto) 15.9 % % Phillips % (Auto) 11.6 % % Eos % (Auto) 0.9 % % Baso % (Auto) 0.9 % % Neut # (Auto) 1.62 10^3/uL L 10 ^3/uL (1.8-7.7) Lymph # (Auto) 0.4 10^3/uL L 10^ 3/uL (0.8-4.8) Phillips # (Auto) 0.3 10^3/uL 10^3/ uL (0.2-0.9) Eos # (Auto) 0.0 10^3/uL 10^3/ uL (0.0-0.8) Baso # (Auto) 0.0 10^3/uL 10^3/ uL (0.0-0.1) Nucleated RBC % (a uto) 0 % % Nucleated RBCs # 0.0 /100WBC /100W BC PT 15.90 SECONDS H S ECONDS (12.1-14.9) INR 1.23 H (0.8-1.2) APTT 29.4 SECONDS SECO NDS (23.9-36.7) Discharge Plan Discharge Patient Disposition: Admitted As Inpatient Clinical Impression: Anemia, Colonoscopy planned Condition: Stable Coding Level of Care Code ED Rent And Housing Investigator for Erika Camacho
[2021-02-28 10:16] LABS: Basophils % 0.9 %; Eosinophils % 0.9 %; Lymphocytes # 0.4 10^3/uL (0.8-4.8); Lymphocytes % 15.9 %; Mean Corpuscular HGB Conc 26.1 g/dL (30.0-36.0); Mean Corpuscular Hemoglobin 18.1 pg (28.0-34.0); Mean Corpuscular Volume 69.6 fl (81-99); Mean Platelet Volume 9.4 fL (7.4-10.4); Monocytes # 0.3 10^3/uL (0.2-0.9); Monocytes % 11.6 %; Neutrophils # 1.62 10^3/uL (1.8-7.7); Neutrophils % 69.8 %; Nucleated Red Blood Cells % 0 %; Platelet Count 126 10^3/cmm (130-400); Red Cell Distribution Width 19.3 % (12.1-15.1); White Blood Count 2.3 10^3/uL (4.0-10.0)
--- NOTE | 2021-02-28 10:30 | PC.NURSE ---
NURSE NOTIFIED OF PATIENT'S BLOOD RESULTS BY LAB STAFF. LAB STAFF INFORMED NURSE THAT IF PATIENT GETS A TRANSFUSION, THAT IT CAN TAKE UP TO 24 HOURS TO GET BLOOD. PROVIDER NOTIFIED.
[2021-02-28 10:32] LABS: Hemoglobin 4.9 g/dL (11.5-15.3)
[2021-02-28 10:33] LABS: Hematocrit 18.8 % (37.0-47.0)
[2021-02-28 10:44] LABS: INR 1.23 (0.8-1.2); Partial Thromboplastin Time 29.4 SECONDS (23.9-36.7)
--- NOTE | 2021-02-28 10:52 | PC.NURSE ---
PATIENT CONTINUE TO DESAT TO 87% - 88%, PATIENT PLACED ON 2L O2 NC. PATIENT SATURATION NOW 94%.
[2021-02-28 10:53] LABS: Alanine Aminotransferase 7 U/L (0-33); Albumin Level 3.7 g/dL (3.5-5.2); Alkaline Phosphatase 62 IU/L (35-105); Anion Gap 17.1 (5-19); Aspartate Amino Transferase 14 U/L (0-32); Blood Urea Nitrogen 18 mg/dL (8-23); Carbon Dioxide 21 mmol/L (22-29); Chloride 103 mmol/L (98-107); Creatinine Clr Calc Pharmacy 56.7003; Globulin 2.4 g/dL (1.3-4.6); Glucose 103 mg/dL (65-115); Lipase 48 U/L (13-60); Osmolality Calculated 286 mOsm/kg (285-295); Potassium 4.1 mmol/L (3.5-5.1); Sodium 137 mmol/L (136-145); Total Bilirubin 0.5 mg/dL (0.15-1.2); Total Protein 6.1 g/dL (6.6-8.7)
--- NOTE | 2021-02-28 11:52 | PM.HP ---
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 due to bilateral extremity edema, shortness of breath, and right upper quadrant pain. For her right upper quadrant pain, associated with nausea, nonbilious vomiting, no hematemesis, has had a cholecystectomy, associate with bloating, has been having appropriate bowel movements, no history of gastric ulcers, no alcohol use, no lightheadedness, no dizziness, no fevers, chills, does feel a bit lightheaded Patient has been feeling more lightheaded, more dizzy, more short of breath, no loss of consciousness, no syncope, no chest pain, no palpitations She has been experiencing increased shortness of breath, increased shortness of breath exertion, increased bilateral from edema no history of CAD, no history of CHF, no history of smoking, no history of COPD, no cough, no fevers, no known exposure to COVID-19, no known Covid symptoms Review of Systems Const: Denies: fever(s), chills, fatigue or malaise Eyes: Denies: change in vision or blurry vision ENMT: Denies: nasal congestion Card: Denies: chest pain Resp: Reports: dyspnea and non-productive cough; Denies: productive cough or wheezing GI: Reports: abdominal pain and nausea; Denies: vomiting, hematemesis, coffee ground emesis, diarrhea, constipation, hematochezia or melena : Denies: flank pain, dysuria or urinary frequency Musc: Denies: neck pain or back pain Skin/Breast: Denies: rash Neuro: Denies: headache(s), dizziness or vertigo Psych: Denies: anxiety or depression Endo: Denies: polyuria or polydipsia Medications/Allergies Home Medications Medication Instructions Recorded Confirmed Last Taken Type insulin glargine [Lantus U-100 See Rx Instructions .ROUTE .COMPLEX 04/19/19 02/28/21 02/27/21 History Insulin] acetaminophen [Tylenol Arthritis] 650 - 1,300 mg PO PRN 06/05/20 02/28/21 01/25/21 History amlodipine 10 mg PO DAILY@0630 06/05/20 02/28/21 02/27/21 History cholecalciferol (vitamin D3) 50 mcg PO DAILY 06/05/20 02/28/21 02/27/21 History [Vitamin D3] spironolactone 25 mg PO DAILY@0630 06/05/20 02/28/21 02/27/21 History Stool Softener 1 tab PO DAILY@0630 08/27/20 02/28/21 02/27/21 History Allergies Allergy/AdvReac Type Severity Reaction Status Date / Time aspirin Allergy Unknown Verified 01/26/21 07:32 ciprofloxacin Allergy ALGY-Rash Verified 01/26/21 07:32 hydrocodone Allergy Unknown Verified 01/26/21 07:32 iodine Allergy ALGY-Hives Verified 01/26/21 07:32 meperidine [From Demerol] Allergy ADR-Nausea Verified 01/26/21 07:32 Sulfa (Sulfonamide Allergy ALGY-Rash Verified 01/26/21 07:32 Antibiotics) PFSH Acute PFSH: Medical History Abnormal colonoscopy Anemia 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 Colonoscopy showed multiple AVMs in the ascending and proximal transverse colon which were cauterized. Extensive diverticulosis with internal and external hemorrhoids were noted. MENARD (nonalcoholic steatohepatitis) Portal hypertension EGD esophageal banding on 03/25/16 she has been transfused multiple times, Surgical History S/P endoscopy Family History Other Family history non-contributory Social History Smoking and tobacco status: never smoked Alcohol intake: never Housing: House Vitals/I&O/Wt Last Vital Signs Temp 97.6 F 02/28/21 09:33 Pulse 68 02/28/21 10:43 Resp 18 02/28/21 09:33 BP 148/68 02/28/21 10:43 Pulse Ox 90 02/28/21 10:43 Weight last 48 hrs Weight 68.039 kg Physical Exam Narrative: EXAM NARRATIVE: Hearing aid in place, Const: COMMON NORMALS: no acute distress and patient oriented x3 HENMT: COMMON NORMALS: normocephalic HEAD & SCALP: normocephalic Eye: COMMON NORMALS: Equal, round and reactive pupils present and EOMs intact bilaterally GENERAL EYE: appearance normal, both eyes and all related structures PUPIL: Yes Equal, round and reactive pupils present Neck/C-Spine: COMMON NORMALS: full ROM and no lymphadenopathy THYROID: Thyroid normal Lymph: LYMPHATIC: no lymphadenopathy noted Resp: COMMON NORMALS: normal respiratory effort, No retractions, No use of accessory muscles and clear to auscultation bilaterally AUSCULTATION: wheezes Cardio: COMMON NORMALS: regular rate, regular rhythm, S1 normal heart sound present, S2 normal heart sound present, No gallops present (Cardio), No clicks present (Cardio) and No murmurs present (Cardio) RATE: regular rate RHYTHM: regular rhythm HEART SOUNDS: S1 normal heart sound present, S2 normal heart sound present and Murmur heart sound present GI: COMMON NORMALS: Normal to inspection, nondistended, normoactive bowel sounds present, Soft to palpation, non-tender and No hepatosplenomegaly present PALPATION: Yes Soft to palpation and Yes Tenderness to palpation present (GI) Details: RUQ Extremity: COMMON NORMALS: normal to inspection and full ROM NARRATIVE EXTREMITY EXAM: 2+ pitting edema bilateral Neuro: COMMON NORMALS: patient oriented x3, CN's II-XII intact bilaterally, moves all extremities and no focal motor deficits Psych: COMMON NORMALS: mental status grossly normal, Normal thought process present and cooperative THOUGHT PROCESS: Normal thought process present Data : 02/28/21 10:00 02/28/21 10:00 A&P Assessment and plan (1) Anemia: -History of transfusion dependent anemia -Etiology under suspicion for GI bleeds, AV malformations, esophageal varices -Has seen Dr. Law in the past -Has a history of iron deficiency anemia -No bloody or black stools, no hematemesis, no bloody urine output, hemodynamically stable -Type and screen, history of multiple antibodies, needs leukoreduced red blood cells, ferritin, TIBC, iron -Transfuse 3 units PRBC, with Lasix Status: Acute (2) MENARD (nonalcoholic steatohepatitis): - Status: Acute (3) Type 2 diabetes mellitus: Insulin sliding scale Status: Acute (4) Fluid overload: Has 2+ pitting edema, wheezing on exam, chest x-ray shows pulmonary edema, evaluated with BMP, add Lasix 40 IV twice daily, echocardiogram ordered Status: Acute (5) Abdominal pain: LFTs within normal limits, lipase within normal limits, will do CAT scan Status: Acute Attestations Medical Necessity Statement*: Patient requires hospitalization for transfusion dependent anemia, outpatient with observation, with fluid overload Coding Level of Care Code Acute Seal Extrusion Operator for Chg Fwd Diagnoses Anemia D64.9 MENARD (nonalcoholic steatohepatitis) K75.81 Type 2 diabetes mellitus E11.9 Fluid overload E87.70 Abdominal pain R10.9
[2021-02-28 12:03] LABS: Reticulocyte % 1.5 % (0.5-2.0)
[2021-02-28 12:25] LABS: Ferritin 5 ng/mL (15-150); Iron 13 ug/dL (37-145); NT Pro B Type Natriuretic Pept 480 pg/mL (0-450); Percent Saturation 3.4 % (20-50); Total Iron Binding Capacity 375 mcg/dl; Unsaturated Iron Binding 362 ug/dL (112-347)
[2021-02-28 13:13] LABS: LAB Peripheral Smear Sent for Review
--- NOTE | 2021-02-28 13:48 | CTR_ITS ---
PROCEDURE INFORMATION: Exam: CT Abdomen And Pelvis Without Contrast Exam date and time: 02/28/2021 1:48 PM Age: 75 years old Clinical indication: Generalized abdominal pain. 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 Patient complains of weakness with generalized abdominal pain radiating into right flank for 1 week. Right upper quadrant abdominal pain. TECHNIQUE: Imaging protocol: Computed tomography of the abdomen and pelvis without contrast. Radiation optimization: All CT scans at this facility use at least one of these dose optimization techniques: automated exposure control; mA and/or kV adjustment per patient size (includes targeted exams where dose is matched to clinical indication); or iterative reconstruction. COMPARISON: US Abdomen* [id number] 07/16/2018 7:03 AM RADIATION DOSE METRICS: Total DLP (mGy-cm): 1674.88 FINDINGS: Pleural spaces: Small to moderate right pleural effusion. Trace left pleural effusion. Consolidation at the right base likely reflects atelectasis. Pneumonia is considered less likely. The heart is enlarged. Coronary arterial calcifications are seen. The blood pool is low in attenuation relative to the cardiac muscle suggesting anemia. There is trace pericardial fluid. No hiatal hernia. Liver: Hepatic cirrhosis is noted. The liver is enlarged measuring 17 cm. Gallbladder and bile ducts: The gallbladder has been removed. Pancreas: The pancreas is unremarkable. Spleen: The spleen is enlarged measuring 17.6 cm. Adrenal glands: The adrenal glands are unremarkable. Kidneys and ureters: The kidneys are unremarkable. Stomach and bowel: The stomach and small bowel are unremarkable.. Colonic diverticulosis without evidence of acute diverticulitis. There is prominence of the wall of the ascending and proximal transverse colon which may reflect mesenteric congestion related to cirrhosis. A mild colitis is a consideration. Correlate clinically. Appendix: The appendix is not identified. Intraperitoneal space: No free intraperitoneal air is seen. Moderate ascites. Vasculature: No abdominal aortic aneurysm. Lymph nodes: A periportal lymph node measures 1.0 x 1.8 cm. Urinary bladder: There is mild prominence of the bladder wall. Correlate with urinalysis to assess for cystitis. Reproductive: There has been prior hysterectomy. The right ovary is visualized in the right pelvis. Bones/joints: No acute fracture is seen. CT/CT abdomen pelvis wo con [id number] IMPRESSION: 1. No nephrolithiasis, hydronephrosis or obstructive ureteral stone. 2. Hepatosplenomegaly with hepatic cirrhosis, periportal lymphadenopathy and moderate ascites. 3. There is prominence of the wall of the ascending and proximal transverse colon which may reflect mesenteric congestion related to cirrhosis. A mild colitis is a consideration. Correlate clinically. 4. There is mild prominence of the bladder wall. Correlate with urinalysis to assess for cystitis. 5. Small to moderate right pleural effusion. Trace left pleural effusion. 6. Consolidation at the right base likely reflects atelectasis. Pneumonia is considered less likely. 7. Cardiomegaly with coronary artery disease. 8. The blood pool is low in attenuation relative to the cardiac muscle suggesting anemia. 9. Colonic diverticulosis without evidence of acute diverticulitis. Radiation Dose CTDIVOL = (mGy): DLP = 1674.88 (mGy-cm)
--- NOTE | 2021-02-28 13:48 | USCV_ITS ---
Martha Moore Age: 75 Gender: F : 1945 Exam Date: 02/28/2021 16:08 Ordering Phys: Jeff Dallas MD Technologist: Alysa Basurto Exam Location: [facility] [place] Indication: Murmur BP: 144 / 54 HR: 75 Rhythm: Sinus Technical Quality: Fair MEASUREMENTS (Male / Female) Normal Values 2D ECHO LV Diastolic Diameter PLAX 4.6 cm 4.2 - 5.9 / 3.9 - 5.3 cm LV Systolic Diameter PLAX 2.6 cm IVS Diastolic Thickness 1.3 cm 0.6 - 1.0 / 0.6 - 0.9 cm IVS Systolic Thickness 2.3 cm LVPW Diastolic Thickness 1.5 cm 0.6 - 1.0 / 0.6 - 0.9 cm LVPW Systolic Thickness 1.2 cm RV Chamber Size 2.4 cm LVOT Diameter 2.0 cm LV Ejection Fraction 2D Teich 74.2 % LV Ejection Fraction MOD 2C 68.5 % LV Ejection Fraction 2C AL 70.3 % LA Diameter 3.6 cm LA Width 4.4 cm LA Height 6.7 cm RA Width 3.1 cm RA Height 6.3 cm Aorta at Sinotubular Diameter 2.6 cm M-MODE LV Diastolic Diameter MM 4.2 cm 4.2 - 5.9 / 3.9 - 5.3 cm LV Systolic Diameter MM 2.5 cm LV Ejection Fraction MM Teich 71.3 % IVS Diastolic Thickness MM 2.0 cm 0.6 - 1.0 / 0.6 - 0.9 cm IVS Systolic Thickness MM 2.3 cm LVPW Diastolic Thickness MM 1.5 cm 0.6 - 1.0 / 0.6 - 0.9 cm LVPW Systolic Thickness MM 2.0 cm RV Diastolic Diameter MM 2.4 cm Aortic Annulus Diameter 3.0 cm LA Ao Ratio MM 1.4 MV E Point Septal Separation 0.2 cm DOPPLER AV Peak Velocity 181.0 cm/s LVOT Peak Velocity 116.0 cm/s AV Area Cont Eq vti 2.1 cm squared AV Area Cont Eq pk 2.0 cm squared MV Area PHT 4.1 cm squared Mitral E to A Ratio 1.2 MV E' Velocity 76.0 cm/s Mitral E to MV E' Ratio 20.7 Mitral E to LV E' Lateral Ratio 21.0 Mitral E to LV E' Septal Ratio 20.4 TR Peak Velocity 268.7 cm/s TR Peak Gradient 28.9 mmHg TR Mean Velocity 175.5 cm/s TR Mean Gradient 14.0 mmHg TR Velocity Time Integral 64.4 cm TV Peak E Velocity 107.0 cm/s Right Atrial Pressure 3.0 mmHg Pulmonary Artery Systolic Pressu 31.9 mmHg RV Acceleration Time 0.1 s RV Ejection Time 0.3 s RV AcT/ET 0.5 FINDINGS Left Ventricle Normal left ventricular size. LV systolic function is normal with EF of 55-60%. No regional wall motion abnormalities.Basal septal hypertrophy noted. Normal diastolic filling pattern. Right Ventricle The right ventricle is normal in size and function. Right Atrium The right atrium is normal in size. Left Atrium The left atrium is severely reduced Mitral Valve Mild mitral annular calcification without significant stenosis or prolapse. There is mild mitral regurgitation. Aortic Valve Aortic valve is thickened without significant stenosis. There is no aortic regurgitation. Tricuspid Valve Structurally normal tricuspid valve without significant stenosis. Mild to moderate tricuspid regurgitation. RVSP is 35- 40mmHg. Mild pulmonary hypertension Pulmonic Valve Structurally normal pulmonic valve without significant stenosis. There is mild pulmonic regurgitation. Pericardium Trivial pericardial effusion Aorta Normal ascending aorta dimension. CONCLUSIONS LV systolic function is normal with EF of 55-60% Normal diastolic function Left atrium is severely dilated Mild mitral regurgitation Mild to moderate tricuspid regurgitation Mild pulmonic regurgitation Trivial pericardial effusion No comparison studies are available Atif Mendenhall MD (Electronically Signed) Final Date: 07 March 2021 19:46 S
[2021-02-28 14:53] LABS: Thyroid Stimulating Hormone 1.22 uIU/mL (0.27-4.20)
[2021-02-28 15:15] LABS: Urine Appearance Cloudy (CLEAR); Urine Color Yellow (Yellow); pH Urine 7 (5-7)
[2021-02-28 15:16] LABS: Add Urine Microscopic? YES; Bilirubin Urine Neg (Negative); Blood Urine Neg (Negative); Glucose Urine UA Norm (Normal); Ketones Urine Negative (Negative); Leukocyte Esterase Urine 2+ (Negative); Nitrate Urine Positive (Negative); Protein Urine Neg (Negative); Specific Gravity, Urine 1.005 (1.005-1.030); Urobilinogen Urine 1 mg/dL (Negative)
[2021-02-28 15:17] LABS: Bacteria Urine 4+ /hpf; Squamous Epithelial Cell Urine 0-4 /hpf (0-5); WBC Urine 80-100 /hpf (0-5)
[2021-02-28 15:18] LABS: Add Urine Culture? Yes
[2021-02-28] MEDS: iron sucrose 200 MG in sodium chloride 0.9% (100 ml) 100 ML 220 MG IV (16:34)
[2021-02-28 17:12] LABS: Glucose Point of Care 96 mg/dL (70-110)
[2021-02-28] MEDS: pantoprazole 40 mg SDV IVP (17:43)
[2021-02-28 20:13] LABS: Glucose Point of Care 117 mg/dL (70-110)
[2021-02-28] MEDS: FUROsemide 10 mg/mL SDV 4mL 40 MG IVP (20:28)
[2021-02-28] MEDS: sodium chloride 0.9% (100 ml) 100 ML 250 ML (20:42)
[2021-02-28] MEDS: sodium chloride 0.9% (100 ml) 100 ML 200 ML (23:11)
[2021-03-01] VITALS: BP 119/67; PULSE 60; RESP 18; TEMP 37.1; O2SAT 97
[2021-03-01 00:38] VITALS: BP 117/63; PULSE 68; RESP 18; TEMP 36.9; O2SAT 96
[2021-03-01 01:00] VITALS: BP 107/61; PULSE 70; RESP 18; TEMP 36.9; O2SAT 93
[2021-03-01] MEDS: sodium chloride 0.9% (100 ml) 100 ML 200 ML (01:05)
[2021-03-01] MEDS: FUROsemide 10 mg/mL SDV 4mL 40 MG IVP (02:03)
[2021-03-01 02:29] LABS: Basophils % 1.1 %; Eosinophils # 0.1 10^3/uL (0.0-0.8); Eosinophils % 2.2 %; Hemoglobin 7.3 g/dL (11.5-15.3); Lymphocytes # 0.6 10^3/uL (0.8-4.8); Lymphocytes % 20.7 %; Mean Corpuscular HGB Conc 28.1 g/dL (30.0-36.0); Mean Corpuscular Hemoglobin 20.4 pg (28.0-34.0); Mean Corpuscular Volume 72.8 fl (81-99); Mean Platelet Volume 8.8 fL (7.4-10.4); Monocytes # 0.3 10^3/uL (0.2-0.9); Monocytes % 12.3 %; Neutrophils # 1.74 10^3/uL (1.8-7.7); Nucleated Red Blood Cells % 0.7 %; Platelet Count 114 10^3/cmm (130-400); Red Blood Count 3.57 10^6/uL (4.1-5.3); Red Cell Distribution Width 22.4 % (12.1-15.1); White Blood Count 2.8 10^3/uL (4.0-10.0)
[2021-03-01 02:46] LABS: Alanine Aminotransferase 8 U/L (0-33); Albumin Level 3.7 g/dL (3.5-5.2); Alkaline Phosphatase 62 IU/L (35-105); Anion Gap 16.1 (5-19); Aspartate Amino Transferase 16 U/L (0-32); Blood Urea Nitrogen 14 mg/dL (8-23); Calcium 8.2 mg/dL (8.5-10.5); Carbon Dioxide 21 mmol/L (22-29); Chloride 103 mmol/L (98-107); Globulin 2.5 g/dL (1.3-4.6); Glucose 131 mg/dL (65-115); Osmolality Calculated 284 mOsm/kg (285-295); Potassium 4.1 mmol/L (3.5-5.1); Sodium 136 mmol/L (136-145); Total Bilirubin 1.2 mg/dL (0.15-1.2); Total Protein 6.2 g/dL (6.6-8.7)
[2021-03-01 04:00] VITALS: BP 121/63; PULSE 73; RESP 18; TEMP 36.6; O2SAT 92
[2021-03-01] MEDS: pantoprazole 40 mg SDV IVP (04:14)
[2021-03-01] MEDS: amlodipine 10 mg Tablet PO (05:30)
[2021-03-01] MEDS: spironolactone 25 mg Tablet PO (05:30)
[2021-03-01 06:02] LABS: Hematocrit 25.3 % (37.0-47.0); Hemoglobin 7.2 g/dL (11.5-15.3)
--- NOTE | 2021-03-01 07:59 | P.CONIM_ITS ---
Providers/Reason For Consult Consulting Physician/Specialty*: General Surgery Logan Guzman MD Reason for Consult*: Anemia, consideration of endoscopy. Attending Physician: Pradip Hebert MD Primary Care Provider: Layla Paulson NP History of Present Illness History of Present Illness Martha Moore is a 75 year old female with an ongoing history of anemia requiring transfusions. She presented to the hospital yesterday with shortness of breath and weakness. She has had multiple endoscopic procedures and tells me that she had what sounds to be some variceal banding in [place], [place] 6 or 7 years ago. She has had panendoscopy several times since then, both in [place] and in [place]. She says they never find anything. She denies any melena and hematemesis. She says rarely she will see evidence of hematochezia. She had hemorrhoid surgery in [place] several years ago and the surgeon told her this should take care of it, but she says she still will have a little bit of hematochezia on occasion. Even if she does not, she still ends up drifting down to the point where she needs transfusions. The patient was admitted yesterday and had a transfusion. She says she already feels much better. Review of Systems General: Reports: 10 or more systems reviewed and unremarkable except in HPI and below Const: Reports: fatigue; Denies: fever(s) Resp: Reports: dyspnea (Prior to admission) GI: Reports: abdominal pain (Right upper quadrant pain on and off since last ) Meds/Allergies Home Medications and Allergies Home Medications Medication Instructions Recorded Confirmed Last Taken Type insulin glargine [Lantus U-100 See Rx Instructions .ROUTE .COMPLEX 04/19/19 02/28/21 02/27/21 History Insulin] acetaminophen [Tylenol Arthritis] 650 - 1,300 mg PO PRN 06/05/20 02/28/21 01/25/21 History amlodipine 10 mg PO DAILY@30 06/05/20 02/28/21 02/27/21 History cholecalciferol (vitamin D3) 50 mcg PO DAILY 06/05/20 02/28/21 02/27/21 History [Vitamin D3] spironolactone 25 mg PO DAILY@30 06/05/20 02/28/21 02/27/21 History Stool Softener 1 tab PO DAILY@0630 08/27/20 02/28/21 02/27/21 History Allergies Allergy/AdvReac Type Severity Reaction Status Date / Time aspirin Allergy Unknown Verified 01/26/21 07:32 ciprofloxacin Allergy ALGY-Rash Verified 01/26/21 07:32 hydrocodone Allergy Unknown Verified 01/26/21 07:32 iodine Allergy ALGY-Hives Verified 01/26/21 07:32 meperidine [From Demerol] Allergy ADR-Nausea Verified 01/26/21 07:32 Sulfa (Sulfonamide Allergy ALGY-Rash Verified 01/26/21 07:32 Antibiotics) Current Medications Current Medications Generic Name Dose Route Start Last Admin Trade Name Freq PRN Reason Stop Dose Admin Amlodipine Besylate 10 mg 03/01/21 06:30 03/01/21 05:30 Amlodipine 10 Mg Tablet PO 10 mg DAILY@0630 RAMYA Administration Iron Sucrose 200 mg/ Sodium 110 mls @ 220 mls/hr 02/28/21 15:00 02/28/21 18:09 Chloride IV 03/04/21 16:59 Infused Q24H [facility] Infusion Insulin Glargine 10 unit 02/28/21 21:00 02/28/21 21:08 Insulin Glargine 100 Units/1 Ml SUBCUT Not Given BID@0900,2100 [facility] Insulin Human Lispro 0 unit 02/28/21 13:48 03/01/21 07:56 Insulin Lispro 100 Unit/1 Ml SUBCUT Not Given TIDWM [facility] Protocol Pantoprazole Sodium 40 mg 02/28/21 13:48 03/01/21 04:14 Pantoprazole 40 Mg Sdv IVP 40 mg Q12H RAMYA Administration Spironolactone 25 mg 03/01/21 06:30 03/01/21 05:30 Spironolactone 25 Mg Tablet PO 25 mg DAILY@0630 RAMYA Administration PFSH Acute PFSH: Medical History (Updated 03/01/21 @ 08:03 by Logan Guzman MD) Abnormal colonoscopy Anemia AVM (arteriovenous malformation) of colon with hemorrhage AVM (arteriovenous malformation) of colon with hemorrhage Cerebral aneurysm Diabetes Diverticulosis GI bleed Esophageal variceal banding on 2 occasions in the past, EGD colonoscopy October 2015 upper endoscopy showed esophageal varices with no bleeding or stigmata of bleeding. Colonoscopy showed multiple AVMs in the ascending and proximal transverse colon which were cauterized. Extensive diverticulosis with internal and external hemorrhoids were noted. LLOYD (nonalcoholic steatohepatitis) Portal hypertension EGD esophageal banding on 03/25/16 she has been transfused multiple times, Surgical History S/P endoscopy Family History Other Family history non-contributory Social History Smoking and tobacco status: never smoked Alcohol intake: never Housing: House Vitals/I&O/Wt Last Vital Signs Temp 97.9 F 03/01/21 04:00 Pulse 73 03/01/21 04:00 Resp 18 03/01/21 04:00 BP 121/63 03/01/21 04:00 Pulse Ox 92 03/01/21 04:00 02/28/21 03/01/21 03/01/21 22:59 06:59 14:59 Intake Total 940 / 1640 700 / 1640 Output Total 250 / 1510 1260 / 1510 Balance 690 / 130 -560 / 130 Weight last 48 hrs Weight 179 lb 12.8 oz Weight 150 lb Physical Exam Narrative: EXAM NARRATIVE: The patient was encountered in her hospital room. She does not appear to be in any distress. The pupils are equal. No carotid bruits are heard. The lungs are clear anteriorly. The heart is regular but she does have a systolic murmur best heard at the left upper sternal border. The abdomen is somewhat protuberant but is soft and nontender. Bowel sounds are present. No obvious masses are palpated. The extremities reveal no edema. Neurologically the patient appears to be grossly intact. Data Imaging^: CT Abd/Pel: Radiologist's impression: CT abdomen/pelvis 02/28/2021 IMPRESSION: 1. No nephrolithiasis, hydronephrosis or obstructive ureteral stone. 2. Hepatosplenomegaly with hepatic cirrhosis, periportal lymphadenopathy and moderate ascites. 3. There is prominence of the wall of the ascending and proximal transverse colon which may reflect mesenteric congestion related to cirrhosis. A mild colitis is a consideration. Correlate clinically. 4. There is mild prominence of the bladder wall. Correlate with urinalysis to assess for cystitis. 5. Small to moderate right pleural effusion. Trace left pleural effusion. 6. Consolidation at the right base likely reflects atelectasis. Pneumonia is considered less likely. 7. Cardiomegaly with coronary artery disease. 8. The blood pool is low in attenuation relative to the cardiac muscle suggesting anemia. 9. Colonic diverticulosis without evidence of acute diverticulitis. A&P Assessment and plan (1) Anemia: The patient has a long history of anemia requiring transfusions. She has had multiple endoscopic procedures but aside from her therapeutic procedures several years ago, nothing is ever found. I discussed endoscopy with the patient once again, but I told her it may very well be that we do not find anything significant given her history of unimpressive findings on endoscopy in the past. She said she is feeling much better following her transfusion and would just as soon go home as opposed to undergoing further diagnostics. I will hold off on any endoscopic procedures for now at the patient's request. Please call if I can be of further assistance. Status: Acute Consult Attestations Medical Necessity Statement: See admitting service's notation. Coding Level of Care Code Acute Senior Data Architect for Erika Camacho Diagnoses Anemia D64.9
[2021-03-01 08:00] VITALS: BP 149/61; PULSE 71; RESP 16; TEMP 36.6; O2SAT 90
[2021-03-01] MEDS: cholecalciferol (vitamin D3) 1,000 unit Tablet 2000 UNIT PO (08:01)
[2021-03-01 08:24] LABS: Glucose Point of Care 103 mg/dL (70-110)
--- NOTE | 2021-03-01 10:00 | PC.CHAP ---
Pastoral Care Encounter/Spiritual Assessment Type of Contact [] Declined premium card cancellation clerk visit [] Patient/Family/Request visit [] Outpatient visit [] Follow-up visit [] Physician referral x [] Code/Alert [x] Routine visit [] Staff referral [] Actively dying [] Patient sleeping [] Family support [] [] Out of room [] Palliative care [] [] Receiving care in room [] Pre-surgical visit [] Trauma [] Long length of stay [] ICU visit [] Other: Relational/Emotional Strength [x] Patient feels connected with others/family/visitors/staff [] Distress [] Loneliness/isolation [] Abandonment Spirituality of Patient [x] Person of Radha [] Attends Sikh of their Radha [x] Believes in Prayer [] Reads Bible or Oriental Orthodox materials [] There are Spiritual issues to be addressed Broke Beater Operator Interventions x[] Prayer [x] Active listening [x Non-anxious presence [] Spiritual/emotional support [] Crisis/trauma care [] Spiritual counseling [] Bereavement support [] Provided bereavement packet [] Provided Bible/devotional materials [] Provided toy/stuffed animal, coloring book to patient or family member [] Provided Communion [] Anointing/[place] [] Salvation [x] Completed spiritual assessment [] Other: Impact on Illness or Injury [] Angry [] Fearful [] Anxious [] Often cries [] Exhaustion [] Unable to work [] Unable to attend caodaism [] Unable to walk/stand [] Unable to read [] Unable to drive [] Unable to eat/drink [] Unable to sleep [] Unable to be with family [] Patient intubated [] Other: Summary Time spent with patient 10 minm
[2021-03-01 12:00] VITALS: BP 128/70; PULSE 72; RESP 16; TEMP 36.8; O2SAT 95
[2021-03-01 12:00] LABS: Glucose Point of Care 163 mg/dL (70-110)
--- NOTE | 2021-03-01 14:25 | P.DS_ITS ---
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, history of esophageal varices, history of AV ma lformations in the colon, history of iron deficiency anemia, history of liver cirrhosis presumed [place], portal hypertension, hypersplenism, chronic pancytopenia, insulin-dependent type 2 diabetes mellitus, diabetic neuropathy, hypertension, hearing loss 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 who presents to [facility] due to bilateral extremity edema, shortness of breath.During the hospital stay she was managed for Anemia: She has History of transfusion dependent anemia, for which she receives transfusion once or twice a month and follow as outpatient, she had multiple EGD and colonscopy in past,surgery was on board and had no plan to do any more scopes.2DEcho was done for PSM evaluation in mitral area which showed LV systolic function is normal with EF of 55-60% Normal diastolic function, Left atrium is severely dilated Mild mitral regurgitation, Mild to moderate tricuspid regurgitation , Mild pulmonic regurgitatio Trivial pericardial eff usion.Post transfusion CBC was 7.3.She was symptomatically better and was discharged in stable condition.She will continue to follow her pcp as well as as outpatient. Discharge Data Data Completed and Pending: Completed Studies During Hospitalization Category Date Time Status CT abdomen pelvis wo con [id number] Urge nt Cat Scan 02/28/21 13:48 Completed XR chest 1V leonarda ble [id number] Urgent Exams 02/28/21 09:48 Completed Pending at discharge Category Date Time Status Clostridioides Di fficile PCR Routin e Lab 02/28/21 14:18 Ordered Enteric Bacterial Panel by PCR Rout ine Lab 02/28/21 14:18 Ordered Enteric Parasite Panel by PCR Routi ne Lab 02/28/21 14:18 Ordered Immunochemical Fe jung OCB Routine Lab 02/28/21 14:18 Ordered Lactoferrin Routi ne Lab 02/28/21 14:18 Ordered Urine Culture Sta t Lab 02/28/21 14:14 Results CV. echo complete * [id number] Routine Ultrasound 02/28/21 13:48 Taken Labs from last 24 hours 03/01/21 03/01/21 03/01/21 11:55 06:38 05:18 WBC RBC Hgb 7.2 L Hct 25.3 L MCV MCH MCHC RDW Plt Count MPV Neut % (Auto) Lymph % (Auto) [place] % (Auto) Eos % (Auto) Baso % (Auto) Neut # (Auto) Lymph # (Auto) [place] # (Auto) Eos # (Auto) Baso # (Auto) Nucleated RBC % (a uto) Nucleated RBCs # Sodium Potassium Chloride Carbon Dioxide Anion Gap BUN Creatinine GFR Calculation Glucose POC Glucose 163 H 103 Calculated Osmolal ity Calcium Total Bilirubin AST ALT Alkaline Phosphata se Total Protein Albumin Globulin TSH Urine Color Urine Appearance Urine pH Ur Specific Gravit y Urine Protein Urine Glucose (UA) Urine Ketones Urine Blood Urine Nitrate Urine Bilirubin Urine Urobilinogen Ur Leukocyte Akosua ase Urine RBC Urine WBC Ur Squamous Epith Cells Amorphous Sediment Urine Bacteria Blood Type Rho(D) Type Antibody Screen Crossmatch 03/01/21 03/01/21 02/28/21 02:13 02:13 20:09 WBC 2.8 L RBC 3.57 L Hgb 7.3 L D Hct 26.0 L D MCV 72.8 L MCH 20.4 L D MCHC 28.1 L D RDW 22.4 H Plt Count 114 L MPV 8.8 Neut % (Auto) 63.0 Lymph % (Auto) 20.7 [place] % (Auto) 12.3 Eos % (Auto) 2.2 Baso % (Auto) 1.1 Neut # (Auto) 1.74 L Lymph # (Auto) 0.6 L [place] # (Auto) 0.3 Eos # (Auto) 0.1 Baso # (Auto) 0.0 Nucleated RBC % (a uto) 0.7 Nucleated RBCs # 0.0 Sodium 136 Potassium 4.1 Chloride 103 Carbon Dioxide 21 L Anion Gap 16.1 BUN 14 Creatinine 0.8 GFR Calculation Not Reportable Glucose 131 H POC Glucose 117 H Calculated Osmolal ity 284 L Calcium 8.2 L Total Bilirubin 1.2 AST 16 ALT 8 Alkaline Phosphata se 62 Total Protein 6.2 L Albumin 3.7 Globulin 2.5 TSH Urine Color Urine Appearance Urine pH Ur Specific Gravit y Urine Protein Urine Glucose (UA) Urine Ketones Urine Blood Urine Nitrate Urine Bilirubin Urine Urobilinogen Ur Leukocyte Akosua ase Urine RBC Urine WBC Ur Squamous Epith Cells Amorphous Sediment Urine Bacteria Blood Type Rho(D) Type Antibody Screen Crossmatch 02/28/21 02/28/21 02/28/21 17:08 14:14 10:00 WBC RBC Hgb Hct MCV MCH MCHC RDW Plt Count MPV Neut % (Auto) Lymph % (Auto) [place] % (Auto) Eos % (Auto) Baso % (Auto) Neut # (Auto) Lymph # (Auto) [place] # (Auto) Eos # (Auto) Baso # (Auto) Nucleated RBC % (a uto) Nucleated RBCs # Sodium Potassium Chloride Carbon Dioxide Anion Gap BUN Creatinine GFR Calculation Glucose POC Glucose 96 Calculated Osmolal ity Calcium Total Bilirubin AST ALT Alkaline Phosphata se Total Protein Albumin Globulin TSH 1.22 Urine Color Yellow Urine Appearance Cloudy Urine pH 7 Ur Specific Gravit y 1.005 Urine Protein Neg Urine Glucose (UA) Norm Urine Ketones Negative Urine Blood Neg Urine Nitrate Positive H Urine Bilirubin Neg Urine Urobilinogen 1 H Ur Leukocyte Akosua ase 2+ H Urine RBC None Urine WBC 80-100 H Ur Squamous Epith Cells 0-4 H Amorphous Sediment Not Reportable Urine Bacteria 4+ H Blood Type Rho(D) Type Antibody Screen Crossmatch 02/28/21 10:00 WBC RBC Hgb Hct MCV MCH MCHC RDW Plt Count MPV Neut % (Auto) Lymph % (Auto) [place] % (Auto) Eos % (Auto) Baso % (Auto) Neut # (Auto) Lymph # (Auto) [place] # (Auto) Eos # (Auto) Baso # (Auto) Nucleated RBC % (a uto) Nucleated RBCs # Sodium Potassium Chloride Carbon Dioxide Anion Gap BUN Creatinine GFR Calculation Glucose POC Glucose Calculated Osmolal ity Calcium Total Bilirubin AST ALT Alkaline Phosphata se Total Protein Albumin Globulin TSH Urine Color Urine Appearance Urine pH Ur Specific Gravit y Urine Protein Urine Glucose (UA) Urine Ketones Urine Blood Urine Nitrate Urine Bilirubin Urine Urobilinogen Ur Leukocyte Akosua ase Urine RBC Urine WBC Ur Squamous Epith Cells Amorphous Sediment Urine Bacteria Blood Type O Positive Rho(D) Type Positive Antibody Screen Negative Crossmatch See Detail Vitals: Last Vital Signs Temp 98.3 F 03/01/21 12:00 Pulse 72 03/01/21 12:00 Resp 16 03/01/21 12:00 BP 128/70 03/01/21 12:00 Pulse Ox 95 03/01/21 12:00 Discharge Plan Discharge Patient Disposition: Home Condition: Stable Prescriptions: Continued Lantus U-100 Insulin 100 unit/mL Solution See Rx Instructions .ROUTE .COMPLEX RF: 0 spironolactone 25 mg tablet 25 mg PO DAILY@0630 RF: 0 acetaminophen 650 mg Tablet Extended Release 650 - 1,300 mg PO PRN RF: 0 amlodipine 10 mg tablet 10 mg PO DAILY@629 RF: 0 cholecalciferol (vitamin D3) [Vitamin D3] 50 mcg (2,000 unit) Capsule 50 mcg PO DAILY RF: 0 Stool Softener 1 tab PO DAILY@629 RF: 0 Discharge Orders: Discharge Order (Routine); Ordered 03/01/21 Ordered By: Pradip Hebert Referrals: Layla Paulson NP [Primary Care Provider] - 03/09/21 8:00 am Discharge Diet: Regular Discharge Activity: Resume usual activity Patient Instructions: Anemia (DC), Opioid Safety Discharge Attestations Time Spent in Discharge Care*: less than 30 min Specific Discharge Activities: educating patient, educating and/or supporting family/caregiver, discussing with pcp/other providers, discussing with manager of case management/social workers/dc planners, documenting/other paperwork and evaluating patient/reviewing data Status at Discharge: Cognitive status at discharge: cognitively intact , Behavioral status at discharge: cooperative , Functional status at discharge: independent ambulation Overall status at discharge: patient is back to baseline Quality Metrics Clinical Quality Measures During this hospital stay, did patient experience: None Coding Level of Care Code Acute Chg FW DC note Diagnoses Anemia D64.9
== END 2021-03-01 17:16 | disposition home or self-care (01) ==
LOC: ER 10:49 → MEDSURG 14:11
PROVIDERS: Student in an Organized Health Care Education/Training Program; Admitting Provider Family Medicine; Emergency Provider Emergency Medicine; PCP Nurse Practitioner Family; Visit Provider Internal Medicine
DX: D50.9 Iron deficiency anemia, unspecified (principal); E11.9 Type 2 diabetes mellitus without complications; K75.81 Nonalcoholic steatohepatitis (NASH); K76.6 Portal hypertension; E87.70 Fluid overload, unspecified; R10.9 Unspecified abdominal pain; Z79.4 Long term (current) use of insulin; I10 Essential (primary) hypertension
CPT/HCPCS: 36415; 36416; 36430; 71045; 74176; 80053; 81001; 82728; 82962; 83540; 83550; 83690; 83880; 84443; 85014; 85018; 85025; 85045; 85610; 85730; 86850; 86900; 86902; 86920; 87077; 87086; 87186; 93005; 93306; 96365; 96366; 99285; C9113; G0378; J1756; J1815; J1940; P9040

== ENCOUNTER 2021-03-15 08:49 | Outpatient (CLI) | payer MEDICARE, SELFPAY ==
[2021-03-15 09:43] LABS: Basophils % 1.5 %; Eosinophils # 0.1 10^3/uL (0.0-0.8); Eosinophils % 3.1 %; Hematocrit 31.3 % (37.0-47.0); Hemoglobin 8.8 g/dL (11.5-15.3); Lymphocytes # 0.5 10^3/uL (0.8-4.8); Mean Corpuscular HGB Conc 28.1 g/dL (30.0-36.0); Mean Corpuscular Hemoglobin 20.5 pg (28.0-34.0); Mean Corpuscular Volume 72.8 fl (81-99); Mean Platelet Volume 8.8 fL (7.4-10.4); Monocytes # 0.2 10^3/uL (0.2-0.9); Monocytes % 11.7 %; Neutrophils # 1.12 10^3/uL (1.8-7.7); Neutrophils % 57.2 %; Nucleated Red Blood Cells % 0 %; Platelet Count 154 10^3/cmm (130-400)
== END 2021-03-15 08:50 | disposition home or self-care (01) ==
PROVIDERS: PCP Nurse Practitioner Family; Visit Provider Nurse Practitioner Family
DX: R58 Hemorrhage, not elsewhere classified (principal); K74.60 Unspecified cirrhosis of liver
CPT/HCPCS: 85025

== ENCOUNTER 2021-03-24 07:13 | Outpatient (CLI) | payer MEDICARE, SELFPAY ==
[2021-03-24 07:51] LABS: Basophils % 1.7 %; Eosinophils % 2.3 %; Hematocrit 29.2 % (37.0-47.0); Hemoglobin 8.3 g/dL (11.5-15.3); Lymphocytes # 0.5 10^3/uL (0.8-4.8); Mean Corpuscular HGB Conc 28.4 g/dL (30.0-36.0); Mean Corpuscular Volume 73.9 fl (81-99); Mean Platelet Volume 8.8 fL (7.4-10.4); Monocytes # 0.2 10^3/uL (0.2-0.9); Monocytes % 11.5 %; Neutrophils % 53.5 %; Nucleated Red Blood Cells % 0 %; Platelet Count 147 10^3/cmm (130-400); Red Blood Count 3.95 10^6/uL (4.1-5.3); Red Cell Distribution Width 24.8 % (12.1-15.1); White Blood Count 1.7 10^3/uL (4.0-10.0)
[2021-03-24 08:06] LABS: Estmated Average Glucose 100; Hemoglobin A1C 5.1 % (4.0-6.0)
[2021-03-24 08:21] LABS: Anion Gap 18.2 (5-19); Blood Urea Nitrogen 18 mg/dL (8-23); Calcium 8.8 mg/dL (8.5-10.5); Carbon Dioxide 20 mmol/L (22-29); Chloride 105 mmol/L (98-107); Glucose 105 mg/dL (65-115); NT Pro B Type Natriuretic Pept 81 pg/mL (0-450); Osmolality Calculated 290 mOsm/kg (285-295); Potassium 4.2 mmol/L (3.5-5.1); Sodium 139 mmol/L (136-145)
[2021-03-24 08:42] LABS: Neutrophils # 0.93 10^3/uL (1.8-7.7)
== END 2021-03-24 07:14 | disposition home or self-care (01) ==
PROVIDERS: PCP Nurse Practitioner Family; Visit Provider Nurse Practitioner Family
DX: E11.9 Type 2 diabetes mellitus without complications (principal); I10 Essential (primary) hypertension
CPT/HCPCS: 36415; 80048; 83036; 83880; 85025

== ENCOUNTER 2021-04-07 09:24 | Emergency (ER) | payer MEDICARE, SELFPAY ==
[2021-04-07 09:29] VITALS: BP 139/66; PULSE 73; RESP 20; TEMP 36.7; O2SAT 98; BMI 25.7
[2021-04-07 09:46] LABS: Basophils % 1.2 %; Eosinophils # 0.1 10^3/uL (0.0-0.8); Eosinophils % 2.9 %; Hematocrit 25.8 % (37.0-47.0); Hemoglobin 7.4 g/dL (11.5-15.3); Lymphocytes # 0.6 10^3/uL (0.8-4.8); Lymphocytes % 25.8 %; Mean Corpuscular HGB Conc 28.7 g/dL (30.0-36.0); Mean Corpuscular Volume 73.3 fl (81-99); Mean Platelet Volume 9.2 fL (7.4-10.4); Monocytes # 0.3 10^3/uL (0.2-0.9); Monocytes % 11.5 %; Neutrophils # 1.42 10^3/uL (1.8-7.7); Neutrophils % 58.2 %; Nucleated Red Blood Cells % 0 %; Platelet Count 155 10^3/cmm (130-400); Red Blood Count 3.52 10^6/uL (4.1-5.3); Red Cell Distribution Width 21.8 % (12.1-15.1); White Blood Count 2.4 10^3/uL (4.0-10.0)
--- NOTE | 2021-04-07 09:50 | ED_ITS ---
HPI - Dizziness General: Chief Complaint: Dizziness Stated Complaint: DIZZY/ HEADACHE Time Seen by Provider: 04/07/21 09:26 History of Present Illness: HPI Narrative: Patient presents via ambulance complaining of a headache that started last night and feeling dizzy this morning when she was going to come into town and see her primary care provider. Patient has a history of chronic anemia that required transfusions without much evidence for anemia being found. Recently had a surgical consult with Dr. Guzman. Patient says her blood sugar was 78 this morning which is low for her. Blood pressure was normal. Patient says she is feeling better presently. MD elicited complaint: dizziness Onset (ago): hour(s) Timing: awoke with symptoms Severity: mild Description: lightheadedness Exacerbating factors: movement/ambulation Relieving factors: remaining still Associated symptoms: Reports headache(s); Denies chest pain, chills, nausea, nasal congestion or vomiting Review of Systems Const: Denies: fever(s), chills or body aches Eyes: Denies: change in vision or blurry vision ENMT: Denies: throat pain or nasal congestion Card: Denies: chest pain or dyspnea on exertion Resp: Denies: dyspnea, productive cough or non-productive cough GI: Denies: abdominal pain, nausea or vomiting Musc: Denies: extremity pain Skin/Breast: Denies: rash Neuro: Reports: headache(s) and dizziness Psych: Denies: anxiety or depression Tej/Lymph: Denies: easy bruising PFS ED PFSH: Medical History (Updated 04/07/21 @ 11:34 by HAZEL Deutsch) Abdominal pain Abnormal colonoscopy Anemia Anemia 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 Colonoscopy showed multiple AVMs in the ascending and proximal transverse colon which were cauterized. Extensive diverticulosis with internal and external hemorrhoids were noted. LLOYD (nonalcoholic steatohepatitis) Portal hypertension EGD esophageal banding on 03/25/16 she has been transfused multiple times, Type 2 diabetes mellitus Surgical History S/P endoscopy Family History Other Family history non-contributory Social History Smoking and tobacco status: never smoked Alcohol intake: never Housing: House Physical Exam Const: COMMON NORMALS: no acute distress, average body habitus and patient oriented x3 HENMT: COMMON NORMALS: normocephalic HEAD & SCALP: normal to inspection and normocephalic FACE & SINUS: normal facial exam GENERAL EAR: hearing grossly impaired and other Eye: COMMON NORMALS: conjunctivae normal GENERAL EYE: appearance normal, both eyes and all related structures CONJUNCTIVA: Yes conjunctivae normal Neck/C-Spine: COMMON NORMALS: no JVD Chest: COMMONS NORMALS: normal inspection of the chest Resp: COMMON NORMALS: normal respiratory effort and clear to auscultation bilaterally AUSCULTATION: clear to auscultation bilaterally Cardio: COMMON NORMALS: no JVD, regular rate and regular rhythm RATE: regul ar rate RHYTHM: regular rhythm GI: COMMON NORMALS: Normal to inspection, nondistended, normoactive bowel sounds present Extremity: COMMON NORMALS: normal to inspection and full ROM Neuro: COMMON NORMALS: patient oriented x3 Course Vital Signs: Vital signs: Vital Signs Temperature 98.1 F 04/07/21 09:29 Pulse Rate 75 04/07/21 11:59 Respiratory Rate 18 04/07/21 10:44 Blood Pressure 132/71 04/07/21 11:59 Pulse Oximetry 96 04/07/21 11:59 MDM - Dizziness MDM Narrative: Medical decision making narrative: Arrives via ambulance complaint of dizziness. Patient states she checked her blood sugar today and it was 78 and she thought maybe that was low for her. Patient is also diagnosed chronic anemia without any real cause for that. She has not had received multiple transfusions over the past. Hemoglobin today is 7.4 hematocrit 25.8. White count is 2.4 and these values are consistent with her previous readings. Patient was given a liter of fluid and instructed to follow-up with her primary care provider in the next couple weeks to reevaluate her hemoglobin hematocrit. Patient was encouraged to continue fluid intake. Patient was requesting go home. Patient has been stable with vital signs throughout stay here. Lab Data: Labs: Lab Results 3 04/07/21 04/07/21 09:34 09:34 WBC 2.4 10^3/uL L 10^ 3/uL (4.0-10.0) RBC 3.52 10^6/uL L 10 ^6/uL (4.1-5.3) Hgb 7.4 g/dL L g/dL (11.5-15.3) Hct 25.8 % L % (37.0-47.0) MCV 73.3 fl L fl (81-99) MCH 21.0 pg L pg (28.0-34.0) MCHC 28.7 g/dL L g/dL (30.0-36.0) RDW 21.8 % H % (12.1-15.1) Plt Count 155 10^3/cmm 10^3 /cmm (130-400) MPV 9.2 fL fL (7.4-10.4) Neut % (Auto) 58.2 % % Lymph % (Auto) 25.8 % % [place] % (Auto) 11.5 % % Eos % (Auto) 2.9 % % Baso % (Auto) 1.2 % % Neut # (Auto) 1.42 10^3/uL L 10 ^3/uL (1.8-7.7) Lymph # (Auto) 0.6 10^3/uL L 10^ 3/uL (0.8-4.8) [place] # (Auto) 0.3 10^3/uL 10^3/ uL (0.2-0.9) Eos # (Auto) 0.1 10^3/uL 10^3/ uL (0.0-0.8) Baso # (Auto) 0.0 10^3/uL 10^3/ uL (0.0-0.1) Nucleated RBC % (a uto) 0 % % Nucleated RBCs # 0.0 /100WBC /100W BC Sodium 137 mmol/L mmol/L (136-145) Potassium 4.4 mmol/L mmol/L (3.5-5.1) Chloride 100 mmol/L mmol/L (98-107) Carbon Dioxide 21 mmol/L L mmol/ L (22-29) Anion Gap 20.4 H (5-19) BUN 15 mg/dL mg/dL (8-23) Creatinine 0.7 mg/dL mg/dL (0.5-0.9) GFR Calculation Not Reportable Glucose 139 mg/dL H mg/dL (65-115) Calculated Osmolal ity 287 mOsm/kg mOsm/ kg (285-295) Calcium 9.2 mg/dL mg/dL (8.5-10.5) EKG Data^: EKG 1: EKG interpretation date: 04/07/21 EKG interpretation time: 11:42 Computer generated interpretation: EKG reveals sinus rhythm left ventricular hypertrophy, ST?T changes possible anterior myocardial infarction probably old, ventricular rate 75 bpm TX interval 168 ms QRS duration 91 ms QT 381 ms Discharge Plan Discharge Patient Disposition: Home Clinical Impression: Dehydration, Dizziness, Anemia, chronic disease Condition: Stable Prescriptions: No Action Lantus U-100 Insulin 100 unit/mL Solution See Rx Instructions .ROUTE .COMPLEX RF: 0 spironolactone 25 mg tablet 25 mg PO DAILY@0630 RF: 0 acetaminophen 650 mg Tablet Extended Release 650 - 1,300 mg PO PRN RF: 0 amlodipine 10 mg tablet 10 mg PO DAILY@0630 RF: 0 cholecalciferol (vitamin D3) [Vitamin D3] 50 mcg (2,000 unit) Capsule 50 mcg PO DAILY RF: 0 potassium chloride 10 mEq capsule, extended release 10 meq PO DAILY RF: 0 furosemide 20 mg tablet 20 mg PO DAILY RF: 0 Discharge Orders: Discharge ED (Routine); Ordered 04/07/21 Ordered By: Kd Corbin Referrals: Layla Paulson NP [Primary Care Provider] - Discharge Diet: Usual diet Discharge Activity: Increase activity as tolerated Patient Instructions: Dehydration (ED), Dizziness (ED), Anemia (ED) Activity Restrictions/Additional Instructions: Make sure that you make appointment with your primary care provider because you will probably need blood transfusion in the next few weeks. Make sure you drink plenty of clear fluids. Follow-up with your primary care provider as directed or return to the ER if worsening symptoms. Coding Level of Care Code ED Picking Crew Supervisor for Michelleg Fwd Exam Comprehensive
[2021-04-07 10:11] LABS: Anion Gap 20.4 (5-19); Blood Urea Nitrogen 15 mg/dL (8-23); Calcium 9.2 mg/dL (8.5-10.5); Carbon Dioxide 21 mmol/L (22-29); Chloride 100 mmol/L (98-107); Creatinine Clr Calc Pharmacy 56.7003; Glucose 139 mg/dL (65-115); Osmolality Calculated 287 mOsm/kg (285-295); Potassium 4.4 mmol/L (3.5-5.1); Sodium 137 mmol/L (136-145)
[2021-04-07] MEDS: sodium chloride 0.9% 1,000 ML 999 ML IV (10:40)
[2021-04-07 10:44] VITALS: BP 123/51; PULSE 71; RESP 18; O2SAT 96
--- NOTE | 2021-04-07 11:03 | ECG_ITS ---
[facility] Test Date: 2021-04-07 Pat Name: Martha Moore Department: Room: Gender: Female Superintendent Measurement: : 1945 Requested By: Kd Corbin Order Number: [id number] Jack MD: Sami Angel M.D. Measurements Intervals [place] Rate: 75 P: 54 MA: 168 QRS: -30 QRSD: 91 T: 51 QT: 381 QTc: 428 Interpretive Statements SINUS RHYTHM LEFT VENTRICULAR HYPERTROPHY AND ST-T CHANGE [VOLTAGE CRITERIA PLUS ST/T ABNORMALITY] POSSIBLE ANTERIOR MYOCARDIAL INFARCTION , PROBABLY OLD [30 ms Q WAVE IN V3/V4, OR R < 0.2 mV IN V4] Compared to ECG 02/28/2021 10:05:18 ST (T wave) deviation now present Left-axis deviation no longer present Myocardial infarct finding still present Electronically Signed On 04-07-2021 19:56:55 DRUM FILLER by Sami Angel M.D. [email or web address]
[2021-04-07 11:59] VITALS: BP 132/71; PULSE 75; O2SAT 96
== END 2021-04-07 11:51 | disposition home or self-care (01) ==
PROVIDERS: Emergency Provider Nurse Practitioner Family; PCP Nurse Practitioner Family
DX: R42 Dizziness and giddiness (principal); E86.0 Dehydration; D64.89 Other specified anemias; E11.9 Type 2 diabetes mellitus without complications; Z79.4 Long term (current) use of insulin
CPT/HCPCS: 80048; 85025; 93005; 96360; 99284; J7030

== ENCOUNTER 2021-04-17 15:03 | Emergency (ER) | payer MEDICARE, SELFPAY ==
[2021-04-17] VITALS (8 sets, daily range): BP systolic 129–154; BP diastolic 59–70; PULSE 72–78; RESP 18–26; TEMP 36.6–37; O2SAT 94–97; BMI 27.1
--- NOTE | 2021-04-17 15:09 | ED_ITS ---
Documented by User: Eris Escobedo MD 04/21/21 23:12 HPI - Weakness General: Chief complaint: Weakness Stated complaint: WEAKNESS; DIZZY Time Seen by Provider: 04/17/21 15:09 History of Present Illness: HPI Narrative: Ms. Moore is a 75-year-old lady with history of hypertension, hyperlipidemia, diabetes, and history of anemia of uncertain etiology who presents emergency department due to generalized weakness. Symptoms have been gradual onset and progressively worsening over a number of days although perhaps more so last night. Associated lightheadedness and generalized malaise. No infectious symptoms. No chest pain or shortness of breath. Intensity symptoms is moderate. Course has been worsening. No other specific changes in health, exacerbating, relieving factors. Patient reports that she has had endoscopy before without clear abnormality or any intervene able lesion. 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 Colonoscopy showed multiple AVMs in the ascending and proximal transverse colon which were cauterized. Extensive diverticulosis with internal and external hemorrhoids were noted. LLOYD (nonalcoholic steatohepatitis) Portal hypertension EGD esophageal banding on 03/25/16 she has been transfused multiple times, Type 2 diabetes mellitus Surgical History S/P endoscopy Family History Other Family history non-contributory Social History Smoking and tobacco status: never smoked Alcohol intake: never Housing: House Physical Exam Const: COMMON NORMALS: alert GENERAL APPEARANCE: cooperative, well dev eloped and frail appearing HENMT: COMMON NORMALS: normocephalic and atraumatic HEAD & SCALP: normocephalic and atraumatic THROAT: posterior oropharynx normal Eye: COMMON NORMALS: conjunctivae normal CONJUNCTIVA: Yes conjunctivae normal SCLERA: sclerae normal Neck/C-Spine: COMMON NORMALS: supple GENERAL: Yes trachea midline Resp: COMMON NORMALS: normal respiratory effort EFFORT & INSPECTION: Yes able to speak in complete sentences Cardio: COMMON NORMALS: regular rate and regular rhythm RATE: regular rate RHYTHM: regular rhythm GI: COMMON NORMALS: Soft to palpation PALPATION: Yes Soft to palpation and No Tenderness to palpation present (GI) PERCUSSION: normal to percussion Extremity: GENERAL: Yes normal exam except as noted and No edema Neuro: COMMON NORMALS: moves all extremities SENSORIUM/ORIENTATION: Yes alert and No Orientation impaired Psych: COMMON NORMALS: mental status grossly normal and Normal thought process present THOUGHT PROCESS: Normal thought process present Course ED course: - Patient was seen and evaluated by me at bedside - Patient placed on cardiac monitors, IV access obtained - Initial evaluation notable for somewhat frail appearance - Labs notable for hemoglobin 6.3. No acute electrolyte derangement to explain patient's symptoms. Covid negative. - Given benign abdominal exam and patient's reported history I do not feel that imaging is warranted at this time. - I discussed the results of ED evaluation at this point with the patient. She does require blood transfusion for symptomatic anemia. I explained risks and benefits as well as reasoning and consented the patient for blood. I answered all questions. - ED course is somewhat prolonged as the patient has antibodies requiring blood to be sent from [place]. I did order transfusion. - Patient care handed off to overnight ED physician Dr. Lyn pending completion of transfusion and reevaluation of the patient. - Given COVID-19 bed situation, and after discussion with the patient, she will most likely be discharged after transfusion. Though not entirely optimal this is reasonable as this is a chronic issue with the patient and there is no evidence of active hemorrhage on exam and there are no beds in the hospital to admit her to if we did admit her. Note: Click bubbles or prepopulated estrada in note writing are used for assistance with data collection and billing and are inherently more limited than narrative and other text portions of this note. Please use narrative for additional c linical history and defer to narrative/free test for any case of contradictory information. If information appears in only free text or click bubble it should be considered present or absent as reported. Please contact note contract writer for clarifications of clinical information or contradictory information. MDM is a brief summary, contradictory or erroneous seeming information should be clarified and full note should be reviewed. Vital Signs: Vital signs: Vital Signs Temperature 98.4 F 04/18/21 03:22 Pulse Rate 82 04/18/21 05:52 Respiratory Rate 17 04/18/21 05:52 Blood Pressure 149/75 04/18/21 05:52 Pulse Oximetry 97 04/18/21 05:52 MDM - Weakness MDM Narrative Medical decision making narrative: 75-year-old lady with history of anemia of unclear etiology presenting with gen eralized weakness concern for low blood counts. Found to have symptomatic anemia. Transfusion ordered. Given current pandemic situation in bed situation I handed off the patient to Dr. Lyn pending completion of transfusion and reevaluation of the patient. Medical Records Attestation: I reviewed the patient's medical records. Lab Data Attestation: I reviewed the patient's lab results. Result diagrams: 04/17/21 14:45 04/17/21 14:45 Labs: Lab Results 04/17/21 04/17/21 04/17/21 14:45 14:45 16:12 WBC 3.1 10^3/uL L 10^3/uL (4.0-10.0) RBC 3.14 10^6/uL L 10^6/uL (4.1-5.3) Hgb 6.3 g/dL L* g/dL (11.5-15.3) Hct 22.2 % L % (37.0-47.0) MCV 70.7 fl L fl (81-99) MCH 20.1 pg L pg (28.0-34.0) MCHC 28.4 g/dL L g/dL (30.0-36.0) RDW 19.9 % H % (12.1-15.1) Plt Count 151 10^3/cmm 10^3/cmm (130-400) MPV 9.3 fL fL (7.4-10.4) Neut % (Auto) 64.9 % % Lymph % (Auto) 20.8 % % [place] % (Auto) 12.0 % % Eos % (Auto) 1.0 % % Baso % (Auto) 1.0 % % Neut # (Auto) 2.00 10^3/uL 10^3/uL (1.8-7.7) Lymph # (Auto) 0.6 10^3/uL L 10^3/uL (0.8-4.8) [place] # (Auto) 0.4 10^3/uL 10^3/uL (0.2-0.9) Eos # (Auto) 0.0 10^3/uL 10^3/uL (0.0-0.8) Baso # (Auto) 0.0 10^3/uL 10^3/uL (0.0-0.1) Nucleated RBC % (auto) 0 % % Nucleated RBCs # 0.0 /100WBC /100WBC Sodium 134 mmol/L L mmol/L (136-145) Potassium 4.2 mmol/L mmol/L (3.5-5.1) Chloride 100 mmol/L mmol/L (98-107) Carbon Dioxide 20 mmol/L L mmol/L (22-29) Anion Gap 18.2 (5-19) BUN 18 mg/dL mg/dL (8-23) Creatinine 0.8 mg/dL mg/dL (0.5-0.9) GFR Calculation Not Reportable Glucose 178 mg/dL H mg/dL (65-115) Calculated Osmolality 284 mOsm/kg L mOsm/kg (285-295) Calcium 9.5 mg/dL mg/dL (8.5-10.5) Total Bilirubin 0.4 mg/dL mg/dL (0.15-1.2) AST 19 U/L U/L (0-32) ALT 15 U/L U/L (0-33) Alkaline Phosphatase 108 IU/L H IU/L (35-105) NT-Pro-B Natriuret Pep 361 pg/mL pg/mL (0-450) Total Protein 7.2 g/dL g/dL (6.6-8.7) Albumin 4.4 g/dL g/dL (3.5-5.2) Globulin 2.8 g/dL g/dL (1.3-4.6) TSH 1.19 uIU/mL uIU/mL (0.27-4.20) SARS-CoV-2 Ag (Rapid) Blood Type O Positive Rho(D) Type Positive Antibody Screen Negative Crossmatch See Detail 04/17/21 17:09 WBC RBC Hgb Hct MCV MCH MCHC RDW Plt Count MPV Neut % (Auto) Lymph % (Auto) [place] % (Auto) Eos % (Auto) Baso % (Auto) Neut # (Auto) Lymph # (Auto) [place] # (Auto) Eos # (Auto) Baso # (Auto) Nucleated RBC % (auto) Nucleated RBCs # Sodium Potassium Chloride Carbon Dioxide Anion Gap BUN Creatinine GFR Calculation Glucose Calculated Osmolality Calcium Total Bilirubin AST ALT Alkaline Phosphatase NT-Pro-B Natriuret Pep Total Protein Albumin Globulin TSH SARS-CoV-2 Ag (Rapid) Negative (Negative) Blood Type Rho(D) Type Antibody Screen Crossmatch Discharge Plan Discharge Patient Disposition: Home Clinical Impression: Symptomatic anemia, Leukopenia, Dehydration, mild Condition: Stable Prescriptions: No Action Lantus U-100 Insulin 100 unit/mL Solution See Rx Instructions .ROUTE .COMPLEX 0RF Rx Instructions: 20 units qam and 40 units bedtime spironolactone 25 mg tablet 25 mg PO DAILY@0630 0RF acetaminophen 650 mg Tablet Extended Release 650 - 1,300 mg PO PRN 0RF amlodipine 10 mg tablet 10 mg PO DAILY@0630 0RF cholecalciferol (vitamin D3) [Vitamin D3] 50 mcg (2,000 unit) Capsule 50 mcg PO DAILY 0RF potassium chloride 10 mEq capsule, extended release 10 meq PO DAILY 0RF furosemide 20 mg tablet 20 mg PO DAILY 0RF Discharge Orders: Discharge ED (Routine); Ordered 04/18/21 Ordered By: Gio Lyn Referrals: Layla Paulson NP [Primary Care Provider] - 1-3 days Discharge Diet: Usual diet Discharge Activity: Resume usual activity Patient Instructions: Anemia (ED), Blood Transfusion (DC) Activity Restrictions/Additional Instructions: Thank you for visiting the emergency department. You were seen and evaluated for weakness and fatigue. You were found to be anemic. The exact cause of your anemia is unclear, likely related to your chronic anemia. Please continue to follow-up with your primary care provider and other specialists regarding the cause of this. Please return to the emergency department for recurrent symptoms, chest pain, shortness of breath, any evidence of bleeding, or anything else that you are concerned about and feel needs emergency department evaluation. 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 Colonoscopy showed multiple AVMs in the ascending and proximal transverse colon which were cauterized. Extensive diverticulosis with internal and external hemorrhoids were noted. LLOYD (nonalcoholic steatohepatitis) Portal hypertension EGD esophageal banding on 03/25/16 she has been transfused multiple times, Type 2 diabetes mellitus Surgical History S/P endoscopy Family History Other Family history non-contributory Social History Smoking and tobacco status: never smoked Alcohol intake: never Housing: House Course Vital Signs: Vital signs: Vital Signs Temperature 98.4 F 04/18/21 03:22 Pulse Rate 82 04/18/21 05:52 Respiratory Rate 17 04/18/21 05:52 Blood Pressure 149/75 04/18/21 05:52 Pulse Oximetry 97 04/18/21 05:52 MDM - Weakness MDM Narrative Medical decision making narrative: 75-year-old female received in checkout from the previous physician. She was fou nd to be significantly anemic with a hemoglobin low at 6.3. She has a history of this. She was transfused 2 units in the emergency room without any complication. Current blood pressure 153/71, heart rate sinus 73, saturations 97% with respirations of 16. She is resting comfortably. No evidence of reaction. She'll be allowed discharge home. Lab Data Result diagrams: 04/17/21 14:45 04/17/21 14:45 Labs: Lab Results 04/17/21 04/17/21 04/17/21 14:45 14:45 16:12 WBC 3.1 10^3/uL L 10^3/uL (4.0-10.0) RBC 3.14 10^6/uL L 10^6/uL (4.1-5.3) Hgb 6.3 g/dL L* g/dL (11.5-15.3) Hct 22.2 % L % (37.0-47.0) MCV 70.7 fl L fl (81-99) MCH 20.1 pg L pg (28.0-34.0) MCHC 28.4 g/dL L g/dL (30.0-36.0) RDW 19.9 % H % (12.1-15.1) Plt Count 151 10^3/cmm 10^3/cmm (130-400) MPV 9.3 fL fL (7.4-10.4) Neut % (Auto) 64.9 % % Lymph % (Auto) 20.8 % % [place] % (Auto) 12.0 % % Eos % (Auto) 1.0 % % Baso % (Auto) 1.0 % % Neut # (Auto) 2.00 10^3/uL 10^3/uL (1.8-7.7) Lymph # (Auto) 0.6 10^3/uL L 10^3/uL (0.8-4.8) [place] # (Auto) 0.4 10^3/uL 10^3/uL (0.2-0.9) Eos # (Auto) 0.0 10^3/uL 10^3/uL (0.0-0.8) Baso # (Auto) 0.0 10^3/uL 10^3/uL (0.0-0.1) Nucleated RBC % (auto) 0 % % Nucleated RBCs # 0.0 /100WBC /100WBC Sodium 134 mmol/L L mmol/L (136-145) Potassium 4.2 mmol/L mmol/L (3.5-5.1) Chloride 100 mmol/L mmol/L (98-107) Carbon Dioxide 20 mmol/L L mmol/L (22-29) Anion Gap 18.2 (5-19) BUN 18 mg/dL mg/dL (8-23) Creatinine 0.8 mg/dL mg/dL (0.5-0.9) GFR Calculation Not Reportable Glucose 178 mg/dL H mg/dL (65-115) Calculated Osmolality 284 mOsm/kg L mOsm/kg (285-295) Calcium 9.5 mg/dL mg/dL (8.5-10.5) Total Bilirubin 0.4 mg/dL mg/dL (0.15-1.2) AST 19 U/L U/L (0-32) ALT 15 U/L U/L (0-33) Alkaline Phosphatase 108 IU/L H IU/L (35-105) NT-Pro-B Natriuret Pep 361 pg/mL pg/mL (0-450) Total Protein 7.2 g/dL g/dL (6.6-8.7) Albumin 4.4 g/dL g/dL (3.5-5.2) Globulin 2.8 g/dL g/dL (1.3-4.6) TSH 1.19 uIU/mL uIU/mL (0.27-4.20) SARS-CoV-2 Ag (Rapid) Blood Type O Positive Rho(D) Type Positive Antibody Screen Negative Crossmatch See Detail 04/17/21 17:09 WBC RBC Hgb Hct MCV MCH MCHC RDW Plt Count MPV Neut % (Auto) Lymph % (Auto) [place] % (Auto) Eos % (Auto) Baso % (Auto) Neut # (Auto) Lymph # (Auto) [place] # (Auto) Eos # (Auto) Baso # (Auto) Nucleated RBC % (auto) Nucleated RBCs # Sodium Potassium Chloride Carbon Dioxide Anion Gap BUN Creatinine GFR Calculation Glucose Calculated Osmolality Calcium Total Bilirubin AST ALT Alkaline Phosphatase NT-Pro-B Natriuret Pep Total Protein Albumin Globulin TSH SARS-CoV-2 Ag (Rapid) Negative (Negative) Blood Type Rho(D) Type Antibody Screen Crossmatch Discharge Plan Discharge Patient Disposition: Home Clinical Impression: Symptomatic anemia, Leukopenia, Dehydration, mild Condition: Stable Prescriptions: No Action Lantus U-100 Insulin 100 unit/mL Solution See Rx Instructions .ROUTE .COMPLEX 0RF Rx Instructions: 20 units qam and 40 units bedtime spironolactone 25 mg tablet 25 mg PO DAILY@0630 0RF acetaminophen 650 mg Tablet Extended Release 650 - 1,300 mg PO PRN 0RF amlodipine 10 mg tablet 10 mg PO DAILY@0630 0RF cholecalciferol (vitamin D3) [Vitamin D3] 50 mcg (2,000 unit) Capsule 50 mcg PO DAILY 0RF potassium chloride 10 mEq capsule, extended release 10 meq PO DAILY 0RF furosemide 20 mg tablet 20 mg PO DAILY 0RF Discharge Orders: Discharge ED (Routine); Ordered 04/18/21 Ordered By: Gio Lyn Referrals: Layla Paulson NP [Primary Care Provider] - 1-3 days Discharge Diet: Usual diet Discharge Activity: Resume usual activity Patient Instructions: Anemia (ED), Blood Transfusion (DC) Activity Restrictions/Additional Instructions: Thank you for visiting the emergency department. You were seen and evaluated for weakness and fatigue. You were found to be anemic. The exact cause of your anemia is unclear, likely related to your chronic anemia. Please continue to follow-up with your primary care provider and other specialists regarding the cause of this. Please return to the emergency department for recurrent symptoms, chest pain, shortness of breath, any evidence of bleeding, or anything else that you are concerned about and feel needs emergency department evaluation. Coding Level of Care Code ED Metals Sales Representative for Erika Camacho
--- NOTE | 2021-04-17 15:32 | ECG_ITS ---
[facility] Test Date: 2021-04-17 Pat Name: Martha Moore Department: Room: Gender: Female Structural Engineer: : 1945 Requested By: Eris Escobedo Order Number: [id number] Santiago MD: Sami Angel M.D. Measurements Intervals [place] Rate: 75 P: 42 GA: 193 QRS: 1 QRSD: 95 T: 57 QT: 390 QTc: 436 Interpretive Statements SINUS RHYTHM MODERATE VOLTAGE CRITERIA FOR LVH, CONSIDER NORMAL VARIANT [MEETS CRITERIA IN ONE OF: R(aVL), S(V1), R(V5), R(V5/V6)+S(V1)] POSSIBLE ANTERIOR MYOCARDIAL INFARCTION , PROBABLY OLD [30 ms Q WAVE IN V3/V4, OR R < 0.2 mV IN V4] Compared to ECG 04/07/2021 11:42:12 ST (T wave) deviation no longer present Myocardial infarct finding still present Electronically Signed On 04-18-2021 20:09:47 RECONCILING CLERK by Sami Angel M.D. [id number]
[2021-04-17 15:42] LABS: Hematocrit 22.2 % (37.0-47.0); Lymphocytes # 0.6 10^3/uL (0.8-4.8); Lymphocytes % 20.8 %; Mean Corpuscular HGB Conc 28.4 g/dL (30.0-36.0); Mean Corpuscular Hemoglobin 20.1 pg (28.0-34.0); Mean Corpuscular Volume 70.7 fl (81-99); Mean Platelet Volume 9.3 fL (7.4-10.4); Monocytes # 0.4 10^3/uL (0.2-0.9); Neutrophils % 64.9 %; Nucleated Red Blood Cells % 0 %; Platelet Count 151 10^3/cmm (130-400); Red Blood Count 3.14 10^6/uL (4.1-5.3); Red Cell Distribution Width 19.9 % (12.1-15.1); White Blood Count 3.1 10^3/uL (4.0-10.0)
[2021-04-17 15:44] LABS: Hemoglobin 6.3 g/dL (11.5-15.3)
[2021-04-17 16:02] LABS: Alanine Aminotransferase 15 U/L (0-33); Albumin Level 4.4 g/dL (3.5-5.2); Alkaline Phosphatase 108 IU/L (35-105); Anion Gap 18.2 (5-19); Aspartate Amino Transferase 19 U/L (0-32); Blood Urea Nitrogen 18 mg/dL (8-23); Calcium 9.5 mg/dL (8.5-10.5); Carbon Dioxide 20 mmol/L (22-29); Chloride 100 mmol/L (98-107); Creatinine Clr Calc Pharmacy 58.0712; Globulin 2.8 g/dL (1.3-4.6); Glucose 178 mg/dL (65-115); NT Pro B Type Natriuretic Pept 361 pg/mL (0-450); Osmolality Calculated 284 mOsm/kg (285-295); Potassium 4.2 mmol/L (3.5-5.1); Sodium 134 mmol/L (136-145); Thyroid Stimulating Hormone 1.19 uIU/mL (0.27-4.20); Total Bilirubin 0.4 mg/dL (0.15-1.2); Total Protein 7.2 g/dL (6.6-8.7)
--- NOTE | 2021-04-17 17:10 | PC.NURSE ---
Long hx of low Hgb and blood transfusions
[2021-04-17 17:41] LABS: SARS Covid-2 Antigen Negative (Negative)
[2021-04-18] VITALS (7 sets, daily range): BP systolic 137–159; BP diastolic 53–82; PULSE 73–91; RESP 17–22; TEMP 36.8–37; O2SAT 94–97
== END 2021-04-18 05:55 | disposition home or self-care (01) ==
PROVIDERS: Emergency Medicine; Emergency Provider Emergency Medicine; PCP Nurse Practitioner Family
DX: D72.819 Decreased white blood cell count, unspecified (principal); E86.0 Dehydration; D64.89 Other specified anemias; Z79.4 Long term (current) use of insulin; E11.9 Type 2 diabetes mellitus without complications; Z20.822 Contact with and (suspected) exposure to COVID-19
CPT/HCPCS: 36415; 36430; 80053; 83880; 84443; 85025; 86850; 86900; 86920; 87426; 93005; 99284; P9016; P9051

== ENCOUNTER 2021-05-03 06:22 | Emergency (ER) | payer MEDICARE, SELFPAY ==
[2021-05-03 06:31] VITALS: BP 150/62; PULSE 80; RESP 14; TEMP 36.4; O2SAT 98; BMI 25.7
--- NOTE | 2021-05-03 06:56 | ECG_ITS ---
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 Measurements Intervals [place] Rate: 72 P: 44 MA: 197 QRS: -29 QRSD: 106 T: 46 QT: 390 QTc: 428 Interpretive Statements SINUS RHYTHM MODERATE VOLTAGE CRITERIA FOR LVH, CONSIDER NORMAL VARIANT POSSIBLE ANTERIOR MYOCARDIAL INFARCTION , OF INDETERMINATE AGE Compared to ECG 04/17/2021 17:03:06 No significant changes Electronically Signed On 05-03-2021 8:40:25 SCRAP YARD WORKER by Antonia Rene M.D. [email or web address]/store/[id number]
--- NOTE | 2021-05-03 06:56 | CT_ITS ---
WS: [id number] CT ABDOMEN AND PELVIS WITH CONTRAST HISTORY: abd pain TECHNIQUE: Imaging performed of the abdomen and pelvis with IV contrast. Single phase imaging of the abdomen. Coronal and sagittal reformats are submitted. All CT scans at [facility] use at [address] one of these dose optimization techniques: automated exposure control; mA and/or kV adjustment per patient size (includes targeted exams where dose is matched to clinical indication); or iterative re construction. IV CONTRAST: Omnipaque 300; 95 mL IV. Oral contrast: Yes. DLP: 1498.44 mGy.cm COMPARISON: None available. Lower thorax: Lung bases are clear. Moderate enlargement the heart. No hiatal hernia. Liver/biliary system: Shrunken liver with irregular nodular surface. Caudate lobe is mildly enlarged. Shrunken RIGHT lobe. No mass or abnormal enhancement. Portal vein is patent. Gallbladder: Status post cholecystectomy. Pancreas: Normal size pancreas and pancreatic duct. No adjacent inflammation. Spleen: Marked enlargement of the spleen. Spleen measures 17.7 cm in length. Similar to the prior naren dy. Adrenal glands: Normal. Right kidney: Normal. Left kidney: Normal. Aorta: Mild atherosclerosis with no aneurysm. Numerous gastrosplenic collaterals in the upper abdomen. No free air. Lymphadenopathy: Mildly enlarged indeterminate lymph nodes at the leonarda hepatis. These were also pres ent on the prior study. No increasing adenopathy. Free fluid: No ascites identified. GI tract: Stomach is nondistended. No small bowel obstruction. Very mild submucosal thickening and ed pk involving the ascending colon. No significant pericolonic soft tissue stranding. No mass identifi ed. Prior appendectomy. Abdominal wall: Unremarkable abdominal wall. No hernia. Pelvis: No free fluid. Prior hysterectomy. No pelvic mass. Urinary bladder is normal. Significant fat ty atrophy of the RIGHT gluteal muscles. Atrophy on the LEFT is less significant. Bones: Degenerative changes throughout the lumbar spine. CT/CT abdomen pelvis w con* [id number] IMPRESSION: 1. Very mild submucosal inflammation involving the ascending colon. No obstruc tion or mass identified by CT. 2. Cirrhosis with portal venous hypertension. 3. Prior cholecystectomy and appendectomy.
--- NOTE | 2021-05-03 06:56 | XR_ITS ---
WS: [id number] PORTABLE CHEST HISTORY: dyspnea/cough COMPARISON: 02/28/2021 Mild chronic interstitial thickening. Nodular densities in the central RIGHT lung are stable since at least 11/28/2018. Mild volume loss in the RIGHT thorax. No pleural effusion or pneumothorax. Cardiac size: Mildly enlarged cardiac silhouette. Mediastinum/Aorta: Mild atherosclerosis aorta. Very mild shift of midline structures to the RIGHT. No osseous abnormality seen. XR/XR chest 1V portable [id number] IMPRESSION: 1. Mild chronic interstitial lung disease. No pneumonia. 2. Mild volume loss in the RIGHT thorax within the slight midline shift to the RIGHT. This is a chronic finding.
--- NOTE | 2021-05-03 06:57 | W.ED.GENADLT ---
HPI - General Adult General: Chief complaint: General Medical Stated complaint: NEEDS BLOOD Time Seen by Provider: 05/03/21 06:43 History of Present Illness: 75-year-old female presents emergency room complaining of generalized weakness and fatigue. She has a history of recurrent anemia. Patient has chronic anemia secondary to GI blood loss and history of esophageal varices AV malformations of the colon. 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 She also has portal hypertension and hypersplenism further she presents today simply complaining of vague abdominal discomfort one episode of diarrhea last night no hematochezia or melena. She not had any hematemesis or coffee-ground emesis. Patient is not on any anticoagulants. She is diabetic. She denies any chest pain. No difficulty breathing no recent flulike symptoms. Onset (ago): day(s) Location: abdomen Severity: moderate Relieving factors: none Exacerbating factors: none Associated symptoms: Reports malaise; Deny chest pain, confusion, cough, diaphoresis, decreased appetite, dyspnea, fevers/chills, headache(s), nausea, rash, palpitations, seizures, short of breath, syncope, vomiting or weakness Treatments prior to arrival: none Review of Systems Const: Reports: fatigue and malaise; Denies: diaphoresis ENMT: Denies: throat pain, ear or mastoid pain, nasal discharge or nasal congestion Card: Denies: chest pain, palpitations or syncope Resp: Denies: dyspnea GI: Denies: nausea or vomiting : Denies: flank pain, difficulty voiding, dysuria, urinary frequency or urinary urgency Skin/Breast: Denies: rash Neuro: Denies: headache(s) or confusion PFS ED PFSH: Medical History Abdominal pain Abnormal colonoscopy Anemia Anemia 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 Colonoscopy showed multiple AVMs in the ascending and proximal transverse colon which were cauterized. Extensive diverticulosis with internal and external hemorrhoids were noted. LLOYD (nonalcoholic steatohepatitis) Portal hypertension EGD esophageal banding on 03/25/16 she has been transfused multiple times, Type 2 diabetes mellitus Surgical History S/P endoscopy Family History Other Family history non-contributory Social History Smoking and tobacco status: never smoked Alcohol intake: never Housing: House Physical Exam Const: GENERAL APPEARANCE: cooperative and comfortable ORIENTATION/CONSCIOUSNESS: Yes awake, Yes oriented to person, Yes oriented to place and Yes oriented to time HENMT: COMMON NORMALS: normocephalic, atraumatic and hearing grossly normal bilaterally HEAD & SCALP: normocephalic and atraumatic Neck/C-Spine: COMMON NORMALS: no JVD Resp: COMMON NORMALS: normal respiratory effort, No retractions, No use of accessory muscles and clear to auscultation bilaterally AUSCULTATION: clear to auscultation bilaterally Cardio: COMMON NORMALS: no JVD, regular rate, regular rhythm and No murmurs present (Cardio) RATE: regular rate RHYTHM: regular rhythm GI: AUSCULTATION: Yes normoactive bowel sounds PALPATION: Yes Tenderness to palpation present (GI) Details: RUQ, No Guarding due to palpation present (GI), Yes Hepatomegaly present Hepatomegaly size below the costal margin: 10 cm, Yes Hernia present (Midline rectus diastasis) and No Ascites present : EXTERNAL FEMALE EXAM: Yes Hernia present (Midline rectus diastasis) Extremity: COMMON NORMALS: normal to inspection, capillary refill normal, no clubbing, cyanosis or edema, no calf tenderness and no pedal edema Neuro: SENSORIUM/ORIENTATION: Yes oriented to person, Yes oriented to place and Yes oriented to time Skin: COMMON NORMALS: no rashes or lesions noted GENERAL SKIN EXAM: no rashes or lesions noted Course Vital Signs: Vital signs: Vital Signs Temperature 97.6 F 05/03/21 06:31 Pulse Rate 83 05/03/21 10:22 Respiratory Rate 16 05/03/21 10:22 Blood Pressure 138/51 05/03/21 10:22 Pulse Oximetry 95 05/03/21 10:22 [facility] - General Adult Medical Decision Making Labs and imaging reviewed discussed with the patient discharged home on Augmentin to cover cystitis as well as a small area of colitis seen on the CT. Follow-up with primary care doctor return if is worsening problems Medical Records I reviewed the patient's medical records. Lab Data I reviewed the patient's lab results. : 02 07:39 02 07:39 Radiology Impressions Abdomen/Pelvis CT 05/03/21 06:56 IMPRESSION: 1. Very mild submucosal inflammation involving the ascending colon. No obstruction or mass identified by CT. 2. Cirrhosis with portal venous hypertension. 3. Prior cholecystectomy and appendectomy. Chest X-Ray 05/03/21 06:56 IMPRESSION: 1. Mild chronic interstitial lung disease. No pneumonia. 2. Mild volume loss in the RIGHT thorax within the slight midline shift to the RIGHT. This is a chronic finding. Laboratory Results WBC 2.4 10^3/uL (4.0-10.0) L 05/03/21 07:39 RBC 3.52 10^6/uL (4.1-5.3) L 05/03/21 07:39 Hgb 7.8 g/dL (11.5-15.3) L 05/03/21 07:39 Hct 27.1 % (37.0-47.0) L 05/03/21 07:39 MCV 77.0 fl (81-99) L 05/03/21 07:39 MCH 22.2 pg (28.0-34.0) L 05/03/21 07:39 MCHC 28.8 g/dL (30.0-36.0) L 05/03/21 07:39 RDW 20.8 % (12.1-15.1) H 05/03/21 07:39 Plt Count 123 10^3/cmm (130-400) L 05/03/21 07:39 MPV 9.3 fL (7.4-10.4) 05/03/21 07:39 Neut % (Auto) 62.3 % 05/03/21 07:39 Lymph % (Auto) 21.7 % 05/03/21 07:39 [place] % (Auto) 11.1 % 05/03/21 07:39 Eos % (Auto) 2.9 % 05/03/21 07:39 Baso % (Auto) 1.6 % 05/03/21 07:39 Neut # (Auto) 1.52 10^3/uL (1.8-7.7) L 05/03/21 07:39 Lymph # (Auto) 0.5 10^3/uL (0.8-4.8) L 05/03/21 07:39 [place] # (Auto) 0.3 10^3/uL (0.2-0.9) 05/03/21 07:39 Eos # (Auto) 0.1 10^3/uL (0.0-0.8) 05/03/21 07:39 Baso # (Auto) 0.0 10^3/uL (0.0-0.1) 05/03/21 07:39 Nucleated RBC % (auto) 0 % 05/03/21 07:39 Nucleated RBCs # 0.0 /100WBC 05/03/21 07:39 PT 15.50 SECONDS (12.1-14.9) H 05/03/21 08:24 INR 1.20 (0.8-1.2) 05/03/21 08:24 APTT 32.2 SECONDS (23.9-36.7) 05/03/21 08:24 Sodium 138 mmol/L (136-145) 05/03/21 07:39 Potassium 4.3 mmol/L (3.5-5.1) 05/03/21 07:39 Chloride 103 mmol/L (98-107) 05/03/21 07:39 Carbon Dioxide 21 mmol/L (22-29) L 05/03/21 07:39 Anion Gap 18.3 (5-19) 05/03/21 07:39 BUN 19 mg/dL (8-23) 05/03/21 07:39 Creatinine 0.7 mg/dL (0.5-0.9) 05/03/21 07:39 GFR Calculation Not Reportable 05/03/21 07:39 Glucose 181 mg/dL (65-115) H 05/03/21 07:39 Calculated Osmolality 293 mOsm/kg (285-295) 05/03/21 07:39 Lactic Acid 0.9 mmol/L (0.5-2.2) 05/03/21 08:24 Calcium 9.5 mg/dL (8.5-10.5) 05/03/21 07:39 Total Bilirubin 0.4 mg/dL (0.15-1.2) 05/03/21 07:39 AST 23 U/L (0-32) 05/03/21 07:39 ALT 18 U/L (0-33) 05/03/21 07:39 Alkaline Phosphatase 112 IU/L (35-105) H 05/03/21 07:39 Ammonia 40 umol/L (11-51) 05/03/21 07:39 Creatine Kinase 69 U/L (26-192) 05/03/21 07:39 Total Protein 7.2 g/dL (6.6-8.7) 05/03/21 07:39 Albumin 4.2 g/dL (3.5-5.2) 05/03/21 07:39 Globulin 3.0 g/dL (1.3-4.6) 05/03/21 07:39 Lipase 49 U/L (13-60) 05/03/21 07:39 Urine Color Yellow (Yellow) 05/03/21 07:47 Urine Appearance Hazy (CLEAR) A 05/03/21 07:47 Urine pH 6.5 (5-7) 05/03/21 07:47 Ur Specific [place] 1.015 (1.005-1.030) 05/03/21 07:47 Urine Protein Neg (Negative) 05/03/21 07:47 Urine Glucose (UA) Norm (Normal) 05/03/21 07:47 Urine Ketones Negative (Negative) 05/03/21 07:47 Urine Blood Neg (Negative) 05/03/21 07:47 Urine Nitrate Positive (Negative) H 05/03/21 07:47 Urine Bilirubin Neg (Negative) 05/03/21 07:47 Urine Urobilinogen Norm mg/dL (Negative) 05/03/21 07:47 Ur Leukocyte Esterase 1+ (Negative) H 05/03/21 07:47 Urine RBC None /hpf (0-2) 05/03/21 07:47 Urine WBC 40-55 /hpf (0-5) H 05/03/21 07:47 Ur Squamous Epith Cells 5-10 /hpf (0-5) H 05/03/21 07:47 Amorphous Sediment Not Reportable 05/03/21 07:47 Urine Bacteria 3+ /hpf (NONE) H 05/03/21 07:47 SARS-CoV-2 Ag (Rapid) Negative (Negative) 05/03/21 08:24 Discharge Plan Discharge Patient Disposition: Home Clinical Impression: Cystitis, Chronic anemia, Leukocytopenia, Colitis Condition: Stable Prescriptions: New Augmentin 875-125 mg tablet 1 tab PO BID Qty: 14 0RF promethazine 25 mg tablet 25 mg PO Q6H PRN (Reason: nausea and vomiting) Qty: 15 0RF No Action Lantus U-100 Insulin 100 unit/mL Solution See Rx Instructions .ROUTE .COMPLEX 0RF Rx Instructions: 20 units qam and 40 units bedtime spironolactone 25 mg tablet 25 mg PO DAILY@0630 0RF acetaminophen 650 mg Tablet Extended Release 650 - 1,300 mg PO PRN 0RF amlodipine 10 mg tablet 10 mg PO DAILY@0630 0RF cholecalciferol (vitamin D3) [Vitamin D3] 50 mcg (2,000 unit) Capsule 50 mcg PO DAILY 0RF potassium chloride 10 mEq capsule, extended release 10 meq PO DAILY 0RF furosemide 20 mg tablet 20 mg PO DAILY 0RF Discharge Orders: Discharge ED (Routine); Ordered 05/03/21 Ordered By: Ramone Cortez Referrals: Layla Paulson NP [Primary Care Provider] - Discharge Diet: Full LIquid Patient Instructions: Opioid Safety Coding Level of Care Code ED Trolley Coach Driver for Erika Fwd Exam Comprehensive
[2021-05-03 07:42] LABS: Basophils % 1.6 %; Eosinophils # 0.1 10^3/uL (0.0-0.8); Eosinophils % 2.9 %; Hematocrit 27.1 % (37.0-47.0); Hemoglobin 7.8 g/dL (11.5-15.3); Lymphocytes # 0.5 10^3/uL (0.8-4.8); Lymphocytes % 21.7 %; Mean Corpuscular HGB Conc 28.8 g/dL (30.0-36.0); Mean Corpuscular Hemoglobin 22.2 pg (28.0-34.0); Mean Platelet Volume 9.3 fL (7.4-10.4); Monocytes # 0.3 10^3/uL (0.2-0.9); Monocytes % 11.1 %; Neutrophils # 1.52 10^3/uL (1.8-7.7); Neutrophils % 62.3 %; Nucleated Red Blood Cells % 0 %; Platelet Count 123 10^3/cmm (130-400); Red Blood Count 3.52 10^6/uL (4.1-5.3); Red Cell Distribution Width 20.8 % (12.1-15.1); White Blood Count 2.4 10^3/uL (4.0-10.0)
[2021-05-03 08:06] LABS: Ammonia 40 umol/L (11-51)
[2021-05-03 08:10] LABS: Alanine Aminotransferase 18 U/L (0-33); Albumin Level 4.2 g/dL (3.5-5.2); Alkaline Phosphatase 112 IU/L (35-105); Anion Gap 18.3 (5-19); Aspartate Amino Transferase 23 U/L (0-32); Blood Urea Nitrogen 19 mg/dL (8-23); Calcium 9.5 mg/dL (8.5-10.5); Carbon Dioxide 21 mmol/L (22-29); Chloride 103 mmol/L (98-107); Creatine Phosphokinase 69 U/L (26-192); Creatinine Clr Calc Pharmacy 56.7003; Glucose 181 mg/dL (65-115); Lipase 49 U/L (13-60); Osmolality Calculated 293 mOsm/kg (285-295); Potassium 4.3 mmol/L (3.5-5.1); Sodium 138 mmol/L (136-145); Total Bilirubin 0.4 mg/dL (0.15-1.2); Total Protein 7.2 g/dL (6.6-8.7)
[2021-05-03 08:18] LABS: Add Urine Microscopic? YES; Bilirubin Urine Neg (Negative); Blood Urine Neg (Negative); Glucose Urine UA Norm (Normal); Ketones Urine Negative (Negative); Leukocyte Esterase Urine 1+ (Negative); Nitrate Urine Positive (Negative); Protein Urine Neg (Negative); Specific Gravity, Urine 1.015 (1.005-1.030); Urine Appearance Hazy (CLEAR); Urine Color Yellow (Yellow); Urobilinogen Urine Norm (Negative); pH Urine 6.5 (5-7)
[2021-05-03 08:19] LABS: Add Urine Culture? Yes; Bacteria Urine 3+ /hpf; WBC Urine 40-55 /hpf (0-5)
[2021-05-03 08:33] VITALS: BP 125/47; PULSE 73; RESP 16; O2SAT 96
[2021-05-03 08:49] LABS: Lactic Sepsis W/Reflex 0.9 mmol/L (0.5-2.2)
[2021-05-03 08:52] LABS: SARS Covid-2 Antigen Negative (Negative)
[2021-05-03 09:01] LABS: Partial Thromboplastin Time 32.2 SECONDS (23.9-36.7)
[2021-05-03] MEDS: iohexol 300 mg/mL 100 mL Btl IV (09:02)
[2021-05-03] MEDS: cefTRIAXone 1,000 MG in lidocaine 1% 2.1 ML 2.1 MG IM (09:12)
[2021-05-03 09:34] VITALS: BP 146/51; PULSE 77; RESP 18; O2SAT 96
[2021-05-03 10:22] VITALS: BP 138/51; PULSE 83; RESP 16; O2SAT 95
[2021-05-04 17:02] LABS: Quest SARS-CoV-2 RNA NOT DETECTED (NOT DETECTED)
== END 2021-05-03 10:28 | disposition home or self-care (01) ==
PROVIDERS: Emergency Provider Family Medicine; PCP Nurse Practitioner Family
DX: N30.90 Cystitis, unspecified without hematuria (principal); D50.0 Iron deficiency anemia secondary to blood loss (chronic); K52.9 Noninfective gastroenteritis and colitis, unspecified; D72.819 Decreased white blood cell count, unspecified; Z79.4 Long term (current) use of insulin; E11.9 Type 2 diabetes mellitus without complications; Z20.822 Contact with and (suspected) exposure to COVID-19
CPT/HCPCS: 36415; 71045; 74177; 80053; 81001; 82140; 82550; 83605; 83690; 85025; 85610; 85730; 87077; 87086; 87186; 87426; 87635; 93005; 96372; 99284; J0696; Q9967

== ENCOUNTER 2021-05-05 10:57 | Emergency (ER) | payer MEDICARE, SELFPAY ==
[2021-05-05 10:59] VITALS: BP 163/90; PULSE 73; RESP 17; O2SAT 100; BMI 25.7
--- NOTE | 2021-05-05 11:05 | XR_ITS ---
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 Multi part fracture of the surgical and anatomic neck of the humerus. Moderate posterior/lateral disp lacement of a large fracture fragment. XR/XR shoulder RT min 2V* [id number] IMPRESSION: Right proximal humeral fracture as above.
--- NOTE | 2021-05-05 11:05 | XR_ITS ---
WS: [id number] XR hip RT 2-3V wo/w pel* [id number] REASON FOR EXAM: hip pain FINDINGS: Moderately severe changes of osteoarthritis in the right hip joint with joint space narrowing, subcho ndral sclerosis and cystic change, and osteophytic spurring. No fracture of the femoral head or neck or the proximal femoral shaft. There is a minimally displaced comminuted fracture of the inferior pubic ramus in its midportion. There is with a fracture of the right ilium at the junction of the superior and inferior pubic rami, involving the acetabulum. Medial displacement of fracture fragments. Acetabulum is disconnected from the axial skeleton. XR/XR hip RT 2-3V wo/w pel* [id number] IMPRESSION: No femoral fracture is identified. Fracture of the inferior pubic ramus and of the ileum at the juncture of the vergara perior and inferior pubic ramus which involves the acetabulum. A CT scan of the pelvis without contrast would better delineate the extent of injury.
--- NOTE | 2021-05-05 11:11 | CT_ITS ---
WS: [id number] CT HEAD NONCONTRAST HISTORY: fall TECHNIQUE: Contiguous axial imaging performed through the brain in 2.5 mm imaging. Bone and soft tiss ue windows. Sagittal and coronal reformats reviewed. All CT scans at [facility] use at least one of these dose optimization techniques: automated exposure control; mA and/or kV adjustment per pa tient size (includes targeted exams where dose is matched to clinical indication); or iterative recon struction. DLP: 869.51 mGy.cm COMPARISON: 07/03/2017 No acute intracranial hemorrhage is identified. There is significant artifact through portions of the brain from the LEFT cochlear implant and the aneurysm clip in the anterior RIGHT middle cranial paul a. No acute interval changes are identified. Mild atrophy bilaterally. Ventricles: Normal size with no hydrocephalus. Paranasal sinuses: As visualized are clear. Mastoid air cells: Postsurgical changes LEFT mastoid air cell. Calvarium and scalp: No acute skull fracture. Craniotomy RIGHT frontal temporal lobe region. CT/CT head wo con* [id number] IMPRESSION: 1. No acute intracranial hemorrhage or edema. 2. Prior aneurysm clip in the RIGHT middle cranial fossa and LEFT cochlear imp lant. Hardware is causing significant artifact through the brain. No interval c hange since 2018 is evident.
--- NOTE | 2021-05-05 11:11 | ECG_ITS ---
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 Measurements Intervals [place] Rate: 82 P: 64 [place]: 181 QRS: -32 QRSD: 98 T: 62 QT: 382 QTc: 449 Interpretive Statements SINUS RHYTHM LEFT AXIS DEVIATION [QRS AXIS < -30] POSSIBLE ANTERIOR MYOCARDIAL INFARCTION , OF INDETERMINATE AGE [30 ms Q WAVE IN V3/V4, OR R < 0.2 mV IN V4] Compared to ECG 05/05/2021 11:56:11 ST (T wave) deviation no longer present Myocardial infarct finding still present Electronically Signed On 05-05-2021 19:22:04 ACCOUNTING ASSISTANT by Antonia Rene M.D. [id number]
--- NOTE | 2021-05-05 11:20 | ED_ITS ---
HPI - General Adult General: Chief complaint: Fall Stated complaint: R SHOULDER/ R HIP PAIN - POST FALL Time Seen by Provider: 05/05/21 11:05 History of Present Illness: 75-year-old female presents emergency room after an episode of fall. Patient tells me that earlier this morning, she was outside feeding her dogs when she felt lightheaded and stepped on ice and tripped and fell to her right side. Patient reporting hitting her head fully on the right side. Patient complains of right shoulder and right hip pain. Patient has not been able to ambulate since the fall. Denies any chest pain shortness breath or palpitation nausea/vomiting, diarrhea, melena hematochezia. Patient denies any vertigo, focal neurological weakness, diplopia, or loss of consciousness. Onset:1 hr ago Duration:once Location:outside Severity:moderate/severe Associated symptoms: Deny chest pain, dyspnea, nausea, rash, palpitations or vomiting Review of Systems Const: Denies: fever(s) or chills Eyes: Denies: change in vision ENMT: Denies: mouth pain Card: Denies: chest pain or palpitations Resp: Denies: dyspnea or non-productive cough GI: Denies: abdominal pain, nausea, vomiting or diarrhea : Denies: dysuria Musc: Reports: extremity pain (+R shoulder pain, R hip pain) Skin/Breast: Denies: rash or new lesions Neuro: Denies: weakness in extremities Psych: Reports: other (Normal mood) Tej/Lymph: Denies: easy bruising PFSH ED PFSH: Medical History Abdominal pain Abnormal colonoscopy Anemia Anemia 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 Colonoscopy showed multiple AVMs in the ascending and proximal transverse colon which were cauterized. Extensive diverticulosis with internal and external hemorrhoids were noted. LLOYD (nonalcoholic steatohepatitis) Portal hypertension EGD esophageal banding on 03/25/16 she has been transfused multiple times, Type 2 diabetes mellitus Surgical History S/P endoscopy Family History Other Family history non-contributory Social History Smoking and tobacco status: never smoked Alcohol intake: never Housing: House Physical Exam Const: COMMON NORMALS: alert HENMT: COMMON NORMALS: atraumatic HEAD & SCALP: atraumatic MOUTH: moist mucous membranes not abnormal Eye: COMMON NORMALS: EOMs intact bilaterally and conjunctivae normal CONJUNCTIVA: Yes conjunctivae normal Neck/C-Spine: COMMON NORMALS: full ROM and supple Resp: COMMON NORMALS: normal respiratory effort and clear to auscultation bilaterally AUSCULTATION: clear to auscultation bilaterally Cardio: COMMON NORMALS: regular rate RATE: regular rate GI: COMMON NORMALS: Soft to palpation and non-tender PALPATION: Yes Soft to palpation Extremity: NARRATIVE EXTREMITY EXAM: +Decreased range of motion of the right shoulder and right hip due to pain no gross deformity, neurovascular exam in the right upper and right lower extremity intact, moderate tenderness palpation over the right shoulder and right hip. No gross deformity or dislocation of the shoulder or hip. Neuro: SENSORIUM/ORIENTATION: Yes alert MOTOR EXAM: No Abnormal motor stre ngth present and Other motor observations present (no focal motor deficits) Psych: COMMON NORMALS: speech normal SPEECH: Yes normal speech MOOD & AFFECT: Yes euthymic mood Course Vital Signs: Vital signs: Vital Signs Pulse Rate 73 05/05/21 10:59 Respiratory Rate 17 05/05/21 10:59 Blood Pressure 163/90 05/05/21 10:59 Pulse Oximetry 100 05/05/21 10:59 [facility] - General Adult Medical Decision Making Note presents emergency room after an episode of fall. Patient complains of right shoulder and right hip pain. Patient is found on x-ray to have right proximal humeral fracture. Patient is also found to have right comminuted ilium/acetabular fracture. Case was discussed with Dr. Frazier who recommended transfer to outside hospital given commuinted nature of the fracture and possible complications. Patient is found to have a hemoglobin 7.7 consistent with baseline. Patient has a history of GI bleed. No report of melena or hematochezia today. Sling applied to the R arm today. Pain control with Dilaudid. At 1:33pm, case was discussed with Dr. Heredia who agreed who agrees with ED transfer to [facility] for further managemente of hip and shoulder fractures. Disposition: Transfer to outside hospital Lab Data : 05/05/21 13:00 05/05/21 13:00 Radiology Impressions Hip/Pelvis X-Ray 05/05/21 11:05 IMPRESSION: No femoral fracture is identified. Fracture of the inferior pubic ramus and of the ileum at the juncture of the vergara perior and inferior pubic ramus which involves the acetabulum. A CT scan of the pelvis without contrast would better delineate the extent of injury. Shoulder X-Ray 05/05/21 11:05 IMPRESSION: Right proximal humeral fracture as above. Head CT 05/05/21 11:11 IMPRESSION: 1. No acute intracranial hemorrhage or edema. 2. Prior aneurysm clip in the RIGHT middle cranial fossa and LEFT cochlear implant. Hardware is causing significant artifact through the brain. No interval change since [address] 05/05/21 12:12 IMPRESSION: 1. Comminuted fracture involving the RIGHT ilium with extension inferiorly into the acetabulum. Fracture fragments are displaced up to 2 cm involving the a cetabulum. 2. Anterior, medial and posterior columns of the RIGHT acetabulum are fractu red. Medial migration of the RIGHT femoral head. 3. Superior and inferior pubic rami fractures on the RIGHT. 4. Pelvic hematoma surrounding the RIGHT hip involving the iliacus and psoas muscles. There is mild mass effect upon the RIGHT lateral urinary bladder by hematoma. 5. Fractures were not evident on the CT from 05/03/2021. Laboratory Results WBC 4.8 10^3/uL (4.0-10.0) 05/05/21 13:00 RBC 3.45 10^6/uL (4.1-5.3) L 05/05/21 13:00 Hgb 7.7 g/dL (11.5-15.3) L 05/05/21 13:00 Hct 26.8 % (37.0-47.0) L 05/05/21 13:00 MCV 77.7 fl (81-99) L 05/05/21 13:00 MCH 22.3 pg (28.0-34.0) L 05/05/21 13:00 MCHC 28.7 g/dL (30.0-36.0) L 05/05/21 13:00 RDW 20.7 % (12.1-15.1) H 05/05/21 13:00 Plt Count 134 10^3/cmm (130-400) 05/05/21 13:00 MPV 9.9 fL (7.4-10.4) 05/05/21 13:00 Neut % (Auto) 83.4 % 05/05/21 13:00 Lymph % (Auto) 7.9 % 05/05/21 13:00 [place] % (Auto) 6.7 % 05/05/21 13:00 Eos % (Auto) 0.4 % 05/05/21 13:00 Baso % (Auto) 0.6 % 05/05/21 13:00 Neut # (Auto) 4.01 10^3/uL (1.8-7.7) 05/05/21 13:00 Lymph # (Auto) 0.4 10^3/uL (0.8-4.8) L 05/05/21 13:00 [place] # (Auto) 0.3 10^3/uL (0.2-0.9) 05/05/21 13:00 Eos # (Auto) 0.0 10^3/uL (0.0-0.8) 05/05/21 13:00 Baso # (Auto) 0.0 10^3/uL (0.0-0.1) 05/05/21 13:00 Nucleated RBC % (auto) 0 % 05/05/21 13:00 Nucleated RBCs # 0.0 /100WBC 05/05/21 13:00 Imaging Data Other Imaging: Radiologist's impression: [employer] [address] [address] Scan Report Signed Patient: Martha Moore Unit #: [id number] : 1945 Age/Sex: 75 / F ADM Date: 05/05/21 Loc: ER Room/Bed: Attending Dr: Ordering Provider/Ordering MD: Reynold Parnell MD Date of Service: 05/05/21 Procedure(s): CT pelvis wo con 34088 Accession Number(s): [id number] Report Number: [id number] WS: [id number] CT PELVIS WITHOUT CONTRAST. HISTORY: Pelvic fractures. TECHNIQUE: Contiguous imaging is performed of the pelvis without contrast. Coronal and sagittal reformats are reviewed.? All CT scans at [facility] use at least one of these dose optimization techniques: automated exposure control; mA and/or kV adjustment per patient size (includes targeted exams where dose is matched to clinical indication); or iterative reconstruction. DLP: 530.58 mGy.cm COMPARISON: Radiograph 05/05/2021. Prior CT 05/03/2021 reviewed. Comminuted fracture involving the anterior mid RIGHT ilium extends inferiorly to involve the acetabulum. There is a comminuted fracture extending through the superior and medial acetabulum. RIGHT femoral head is migrated medially through the acetabular fracture. The acetabular fragments are displaced by up to 2 cm. Fracture extends to involve the posterior and medial acetabulum. Additional fractures with buckling involving the superior and inferior RIGHT pubic rami. The humeral head is intact. The LEFT hip is negative. No acute fractures on the LEFT. There is a significant hematoma surrounding the RIGHT hip and acetabulum with extension into the psoas and iliac is muscle. There is Causing mild displacement upon the RIGHT lateral urinary bladder. No active extravasation is identified. Some of the fracture fragments are closely associated with the iliac vessels. CT/CT pelvis wo con [id number] IMPRESSION: ? 1.? Comminuted fracture involving the RIGHT ilium with extension inferiorly into the acetabulum. Fracture fragments are displaced up to 2 cm involving the acetabulum. 2.? Anterior, medial and posterior columns of the RIGHT acetabulum are fractured. Medial migration of the RIGHT femoral head. 3.? Superior and inferior pubic rami fractures on the RIGHT. 4.? Pelvic hematoma surrounding the RIGHT hip involving the iliacus and psoas muscles. There is mild mass effect upon the RIGHT lateral urinary bladder by hematoma. 5.? Fractures were not evident on the CT from 05/03/2021. ? Dictated By: Haylee Cheng DO Signed By: Haylee Cheng DO Signed Date/Time: 05/05/21 1242 DD/ [address] [address] [address] Scan Report Signed Patient: Martha Moore Unit #: [id number] : 1945 Age/Sex: 75 / F ADM Date: 05/05/21 Loc: ER Room/Bed: Attending Dr: Ordering Provider/Ordering MD: Reynold Parnell MD Date of Service: 05/05/21 Procedure(s): CT head wo con* 06854 Accession Number(s): [id number] Report Number: [id number] WS: [id number] CT HEAD NONCONTRAST HISTORY: fall TECHNIQUE: Contiguous axial imaging performed through the brain in 2.5 mm imaging. Bone and soft tissue windows. Sagittal and coronal reformats reviewed.? All CT scans at [facility] use at least one of these dose optimization techniques: automated exposure control; mA and/or kV adjustment per patient size (includes targeted exams where dose is matched to clinical indication); or iterative reconstruction. DLP: 869.51 mGy.cm COMPARISON: 07/03/2017 No acute intracranial hemorrhage is identified. There is significant artifact through portions of the brain from the LEFT cochlear implant and the aneurysm clip in the anterior RIGHT middle cranial fossa. No acute interval changes are identified. Mild atrophy bilaterally. Ventricles:? Normal size with no hydrocephalus. Paranasal sinuses: As visualized are clear. Mastoid air cells: Postsurgical changes LEFT mastoid air cell. Calvarium and scalp: No acute skull fracture. Craniotomy RIGHT frontal temporal lobe region. CT/CT head wo con* 13708 IMPRESSION: ? 1.? No acute intracranial hemorrhage or edema. 2.? Prior aneurysm clip in the RIGHT middle cranial fossa and LEFT cochlear implant. Hardware is causing significant artifact through the brain. No interval change since 2018 is evident. ? 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 Multi part fracture of the surgical and anatomic neck of the humerus. Moderate posterior/lateral displacement of a large fracture fragment. XR/XR shoulder RT min 2V* 10008 IMPRESSION: Right proximal humeral fracture as above. ? ? Dictated By: Jonh Resendiz Jr, MD Signed By: Jonh Resendiz Jr, MD Signed Date/Time: 05/05/211208 DD/ 1206 Discharge Plan Discharge Condition: Stable Prescriptions: No Action Lantus U-100 Insulin 100 unit/mL Solution See Rx Instructions .ROUTE .COMPLEX 0RF Rx Instructions: 20 units qam and 40 units bedtime spironolactone 25 mg tablet 25 mg PO DAILY@0630 0RF acetaminophen 650 mg Tablet Extended Release 650 - 1,300 mg PO PRN 0RF amlodipine 10 mg tablet 10 mg PO DAILY@0630 0RF cholecalciferol (vitamin D3) [Vitamin D3] 50 mcg (2,000 unit) Capsule 50 mcg PO DAILY 0RF potassium chloride 10 mEq capsule, extended release 10 meq PO DAILY 0RF furosemide 20 mg tablet 20 mg PO DAILY 0RF Augmentin 875-125 mg tablet 1 tab PO BID Qty: 14 0RF promethazine 25 mg tablet 25 mg PO Q6H PRN (Reason: nausea and vomiting) Qty: 15 0RF Referrals: Layla Paulson, GLO [Primary Care Provider] - Coding Level of Care Code ED Winter Sports Manager for Chg Fwd Exam Comprehensive
--- NOTE | 2021-05-05 12:12 | CT_ITS ---
WS: [id number] CT PELVIS WITHOUT CONTRAST. HISTORY: Pelvic fractures. TECHNIQUE: Contiguous imaging is performed of the pelvis without contrast. Coronal and sagittal refor mats are reviewed. All CT scans at [facility] use at least one of these dose optimization bill hniques: automated exposure control; mA and/or kV adjustment per patient size (includes targeted exam s where dose is matched to clinical indication); or iterative reconstruction. DLP: 530.58 mGy.cm COMPARISON: Radiograph 05/05/2021. Prior CT 05/03/2021 reviewed. Comminuted fracture involving the anterior mid RIGHT ilium extends inferiorly to involve the acetabul um. There is a comminuted fracture extending through the superior and medial acetabulum. RIGHT femora l head is migrated medially through the acetabular fracture. The acetabular fragments are displaced b y up to 2 cm. Fracture extends to involve the posterior and medial acetabulum. Additional fractures w ith buckling involving the superior and inferior RIGHT pubic rami. The humeral head is intact. The LEFT hip is negative. No acute fractures on the LEFT. There is a significant hematoma surrounding the RIGHT hip and acetabulum with extension into the psoa s and iliac is muscle. There is Causing mild displacement upon the RIGHT lateral urinary bladder. No active extravasation is identifi ed. Some of the fracture fragments are closely associated with the iliac vessels. CT/CT pelvis wo con [id number] IMPRESSION: 1. Comminuted fracture involving the RIGHT ilium with extension inferiorly int o the acetabulum. Fracture fragments are displaced up to 2 cm involving the rekha tabulum. 2. Anterior, medial and posterior columns of the RIGHT acetabulum are fracture d. Medial migration of the RIGHT femoral head. 3. Superior and inferior pubic rami fractures on the RIGHT. 4. Pelvic hematoma surrounding the RIGHT hip involving the iliacus and psoas m uscles. There is mild mass effect upon the RIGHT lateral urinary bladder by hem atoma. 5. Fractures were not evident on the CT from 05/03/2021.
--- NOTE | 2021-05-05 13:11 | ECG_ITS ---
[facility] Test Date: 2021-05-05 Pat Name: Martha Moore Department: Room: Gender: Female Paper Cone Maker: : 1945 Requested By: Reynold Parnell Order Number: [id number] Jack MD: Antonia Rene M.D. Measurements Intervals Sims Rate: 72 P: 47 VT: 172 QRS: -31 QRSD: 97 T: 51 QT: 423 QTc: 466 Interpretive Statements SINUS RHYTHM LEFT AXIS DEVIATION [QRS AXIS < -30] MODERATE VOLTAGE CRITERIA FOR LVH, CONSIDER NORMAL VARIANT POSSIBLE ANTERIOR MYOCARDIAL INFARCTION , PROBABLY OLD TYPE 2 BRUGADA PATTERN (NON-DIAGNOSTIC) Compared to ECG 05/03/2021 08:09:10 Left-axis deviation now present ST (T wave) deviation now present Myocardial infarct finding still present Electronically Signed On 05-06-2021 11:05:10 CLAY PROCESSING FACTORY WORKER by Antonia Rene M.D. [email or web address]
[2021-05-05 13:16] LABS: Basophils % 0.6 %; Eosinophils % 0.4 %; Hematocrit 26.8 % (37.0-47.0); Hemoglobin 7.7 g/dL (11.5-15.3); Lymphocytes # 0.4 10^3/uL (0.8-4.8); Lymphocytes % 7.9 %; Mean Corpuscular HGB Conc 28.7 g/dL (30.0-36.0); Mean Corpuscular Hemoglobin 22.3 pg (28.0-34.0); Mean Corpuscular Volume 77.7 fl (81-99); Mean Platelet Volume 9.9 fL (7.4-10.4); Monocytes # 0.3 10^3/uL (0.2-0.9); Monocytes % 6.7 %; Neutrophils # 4.01 10^3/uL (1.8-7.7); Neutrophils % 83.4 %; Nucleated Red Blood Cells % 0 %; Platelet Count 134 10^3/cmm (130-400); Red Blood Count 3.45 10^6/uL (4.1-5.3); Red Cell Distribution Width 20.7 % (12.1-15.1); White Blood Count 4.8 10^3/uL (4.0-10.0)
[2021-05-05 13:36] LABS: Blood Urea Nitrogen 20 mg/dL (8-23); Calcium 8.9 mg/dL (8.5-10.5); Carbon Dioxide 18 mmol/L (22-29); Chloride 103 mmol/L (98-107); Creatinine Clr Calc Pharmacy 56.7003; Glucose 300 mg/dL (65-115); Osmolality Calculated 296 mOsm/kg (285-295); Sodium 136 mmol/L (136-145)
[2021-05-05 13:37] LABS: Troponin(5th) Baseline 11 ng/L (0-10)
[2021-05-05 13:38] VITALS: RESP 18; O2SAT 96
[2021-05-05] MEDS: morphine 4 mg/mL SDV 1 mL IM (13:38)
[2021-05-05] MEDS: acetaminophen 500 mg Tablet PO (13:41)
[2021-05-05 14:26] VITALS: BP 128/57; PULSE 85; RESP 18; O2SAT 96
[2021-05-05 14:57] VITALS: BP 111/80; PULSE 78; O2SAT 97
--- NOTE | 2021-05-05 15:39 | PC.NURSE ---
Notified of Negative COVID test
== END 2021-05-05 14:59 ==
PROVIDERS: Emergency Provider Emergency Medicine; PCP Nurse Practitioner Family
DX: S09.90XA Unspecified injury of head, initial encounter (principal); M25.511 Pain in right shoulder; M25.551 Pain in right hip; Z79.4 Long term (current) use of insulin; E11.9 Type 2 diabetes mellitus without complications; W18.09XA Striking against other object with subsequent fall, initial encounter
CPT/HCPCS: 70450; 72192; 73030; 73502; 80048; 84484; 85025; 86850; 86900; 93005; 96372; 99285; J2270

== ENCOUNTER 2021-05-18 12:45 | Emergency (ER) | payer MEDICARE, MEDICAID, SELFPAY ==
[2021-05-18] VITALS (8 sets, daily range): BP systolic 114–133; BP diastolic 51–78; PULSE 66–83; RESP 18; TEMP 36.7–37.3; O2SAT 94–96; BMI 25.7
[2021-05-18 13:10] LABS: Basophils % 0.7 %; Eosinophils # 0.1 10^3/uL (0.0-0.8); Hematocrit 24.9 % (37.0-47.0); Hemoglobin 7.3 g/dL (11.5-15.3); Lymphocytes # 0.5 10^3/uL (0.8-4.8); Mean Corpuscular HGB Conc 29.3 g/dL (30.0-36.0); Mean Corpuscular Hemoglobin 24.7 pg (28.0-34.0); Mean Corpuscular Volume 84.4 fl (81-99); Mean Platelet Volume 9.1 fL (7.4-10.4); Monocytes # 0.5 10^3/uL (0.2-0.9); Monocytes % 8.8 %; Neutrophils # 4.75 10^3/uL (1.8-7.7); Nucleated Red Blood Cells % 0 %; Platelet Count 215 10^3/cmm (130-400); Red Blood Count 2.95 10^6/uL (4.1-5.3); Red Cell Distribution Width 21.6 % (12.1-15.1)
[2021-05-18 13:35] LABS: Anion Gap 14.3 (5-19); Blood Urea Nitrogen 19 mg/dL (8-23); Calcium 7.5 mg/dL (8.5-10.5); Carbon Dioxide 21 mmol/L (22-29); Chloride 98 mmol/L (98-107); Creatinine Clr Calc Pharmacy 56.7003; Glucose 201 mg/dL (65-115); Osmolality Calculated 276 mOsm/kg (285-295); Potassium 4.3 mmol/L (3.5-5.1); Sodium 129 mmol/L (136-145)
--- NOTE | 2021-05-18 14:09 | W.ED.RECABL ---
HPI - Recheck/Abnormal Lab/Rx General: Chief Complaint: Recheck/Abnormal Lab/Rx Stated Complaint: ABNORMAL LABS Time Seen by Provider: 05/18/21 12:48 History of Present Illness: 75-year-old female presents emergency room for abnormal labs. Patient is chronically anemic normal baseline is around mid sevens. She has chronic GI blood losses from esophageal varices and AVMs in the colon. We called to check with the senior living they said she had some episodes where she kind of nodded off. She not had any episodes like that here vital signs of been stable she denies any other particular problems she does relate that she has dark stools but this is chronic for her because of the source of her GI bleeding which is also been a chronic ongoing thing. Called and talked to her attending he did not have any other issues that they were concerned about. She also had some hyponatremia although she is chronically hyponatremic but she is not symptomatic specifically of hyponatremia at this time. MD complaint: abnormal lab Symptoms since prior visit: no new symptoms Context: called for abnormal lab result Associated symptoms: malaise Review of Systems Const: Reports: fatigue (Chronic) and malaise; Denies: fever(s), chills, body aches or change in appetite ENMT: Denies: throat pain, ear or mastoid pain, nasal discharge or nasal congestion Card: Denies: chest pain, edema, dyspnea on exertion or orthopnea Resp: Denies: dyspnea, productive cough or non-productive cough GI: Denies: abdominal pain, nausea, vomiting, hematemesis, coffee ground emesis, diarrhea, constipation, bloating, hematochezia or melena : Denies: flank pain, difficulty voiding, dysuria, urinary frequency or urinary urgency Skin/Breast: Denies: rash or pruritus PFSH ED PFSH: Medical History Abdominal pain Abnormal colonoscopy Anemia Anemia 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 Colonoscopy showed multiple AVMs in the ascending and proximal transverse colon which were cauterized. Extensive diverticulosis with internal and external hemorrhoids were noted. LLOYD (nonalcoholic steatohepatitis) Portal hypertension EGD esophageal banding on 03/25/16 she has been transfused multiple times, Type 2 diabetes mellitus Surgical History S/P endoscopy Family History Other Family history non-contributory Social History Smoking and tobacco status: never smoked Alcohol intake: never Housing: House Physical Exam Const: COMMON NORMALS: no acute distress GENERAL APPEARANCE: cooperative and comfortable ORIENTATION/CONSCIOUSNESS: Yes awake, Yes oriented to person, Yes oriented to place and Yes oriented to time HENMT: COMMON NORMALS: normocephalic, atraumatic and hearing grossly normal bilaterally HEAD & SCALP: normocephalic and atraumatic Neck/C-Spine: COMMON NORMALS: no JVD Resp: COMMON NORMALS: normal respiratory effort, No retractions, No use of accessory muscles and clear to auscultation bilaterally AUSCULTATION: clear to auscultation bilaterally Cardio: COMMON NORMALS: no JVD, regular rate, regular rhythm and No murmurs present (Cardio) RATE: regular rate RHYTHM: regular rhythm GI: COMMON NORMALS: Soft to palpation and No hepatosplenomegaly present AUSCULTATION: Yes normoactive bowel sounds PALPATION: Yes Soft to palpation, No Tenderness to palpation present (GI), No Guarding due to palpation present (GI) and Yes No hepatosplenomegaly present Extremity: COMMON NORMALS: normal to inspection, capillary refill normal, no clubbing, cyanosis or edema, no calf tenderness and no pedal edema Neuro: SENSORIUM/ORIENTATION: Yes oriented to person, Yes oriented to place and Yes oriented to time Skin: COMMON NORMALS: no rashes or lesions noted GENERAL SKIN EXAM: no rashes or lesions noted Course Vital Signs: Vital signs: Vital Signs Temperature 98.2 F 05/18/21 15:13 Pulse Rate 66 05/18/21 14:30 Respiratory Rate 18 05/18/21 15:13 Blood Pressure 114/68 05/18/21 15:13 Pulse Oximetry 96 05/18/21 15:13 MDM - Recheck/Abnormal Lab/Rx Medical Decision Making Generally patient seems to be at her baseline. Reviewing her chart her hemoglobin is about where she normally runs. She is mildly hyponatremic but not specifically symptomatic of such. She still has occasional melanic stools but this also is chronic due to esophageal varices and GI AVMs. Called and talked to her attending he was not aware she was here he did not had any specific knowledge of any problem she was having when he called senior living they felt she had been nodding off a few times been concerned about her low hemoglobin. She is relatively new there is some not sure they really know the established pattern of her baseline hemoglobin. After discussion with attending we will go ahead and discharge her back to the senior living repeat a BMP and a CBC in 2 days. Lab Data : 05/18/21 13:00 05/18/21 13:00 Laboratory Results WBC 6.0 10^3/uL (4.0-10.0) 05/18/21 13:00 RBC 2.95 10^6/uL (4.1-5.3) L 05/18/21 13:00 Hgb 7.3 g/dL (11.5-15.3) L 05/18/21 13:00 Hct 24.9 % (37.0-47.0) L 05/18/21 13:00 MCV 84.4 fl (81-99) 05/18/21 13:00 MCH 24.7 pg (28.0-34.0) L 05/18/21 13:00 MCHC 29.3 g/dL (30.0-36.0) L 05/18/21 13:00 RDW 21.6 % (12.1-15.1) H 05/18/21 13:00 Plt Count 215 10^3/cmm (130-400) 05/18/21 13:00 MPV 9.1 fL (7.4-10.4) 05/18/21 13:00 Neut % (Auto) 79.0 % 05/18/21 13:00 Lymph % (Auto) 9.0 % 05/18/21 13:00 [place] % (Auto) 8.8 % 05/18/21 13:00 Eos % (Auto) 1.0 % 05/18/21 13:00 Baso % (Auto) 0.7 % 05/18/21 13:00 Neut # (Auto) 4.75 10^3/uL (1.8-7.7) 05/18/21 13:00 Lymph # (Auto) 0.5 10^3/uL (0.8-4.8) L 05/18/21 13:00 [place] # (Auto) 0.5 10^3/uL (0.2-0.9) 05/18/21 13:00 Eos # (Auto) 0.1 10^3/uL (0.0-0.8) 05/18/21 13:00 Baso # (Auto) 0.0 10^3/uL (0.0-0.1) 05/18/21 13:00 Nucleated RBC % (auto) 0 % 05/18/21 13:00 Nucleated RBCs # 0.0 /100WBC 05/18/21 13:00 Sodium 129 mmol/L (136-145) L 05/18/21 13:00 Potassium 4.3 mmol/L (3.5-5.1) 05/18/21 13:00 Chloride 98 mmol/L (98-107) 05/18/21 13:00 Carbon Dioxide 21 mmol/L (22-29) L 05/18/21 13:00 Anion Gap 14.3 (5-19) 05/18/21 13:00 BUN 19 mg/dL (8-23) 05/18/21 13:00 Creatinine 0.7 mg/dL (0.5-0.9) 05/18/21 13:00 GFR Calculation Not Reportable 05/18/21 13:00 Glucose 201 mg/dL (65-115) H 05/18/21 13:00 Calculated Osmolality 276 mOsm/kg (285-295) L 05/18/21 13:00 Calcium 7.5 mg/dL (8.5-10.5) L 05/18/21 13:00 Discharge Plan Discharge Patient Disposition: Home Clinical Impression: Chronic blood loss anemia, Hyponatremia Condition: Stable Prescriptions: No Action Lantus U-100 Insulin 100 unit/mL Solution See Rx Instructions .ROUTE .COMPLEX 0RF Rx Instructions: 20 units qam and 40 units bedtime spironolactone 25 mg tablet 25 mg PO DAILY@0630 0RF acetaminophen 650 mg Tablet Extended Release 650 - 1,300 mg PO PRN 0RF amlodipine 10 mg tablet 10 mg PO DAILY@0630 0RF cholecalciferol (vitamin D3) [Vitamin D3] 50 mcg (2,000 unit) Capsule 50 mcg PO DAILY 0RF potassium chloride 10 mEq capsule, extended release 10 meq PO DAILY 0RF furosemide 20 mg tablet 20 mg PO DAILY 0RF Augmentin 875-125 mg tablet 1 tab PO BID Qty: 14 0RF promethazine 25 mg tablet 25 mg PO Q6H PRN (Reason: nausea and vomiting) Qty: 15 0RF Discharge Orders: Discharge ED (Routine); Ordered 05/18/21 Ordered By: Ramone Cortez Referrals: Layla Paulson NP [Primary Care Provider] - Discharge Diet: Usual diet Discharge Activity: Resume usual activity Patient Instructions: Opioid Safety Activity Restrictions/Additional Instructions: Please recheck a CBC and BMP in 2 days call to patient's attending physician Coding Level of Care Code ED Parts Administrator for Erika Camacho
[2021-05-18] MEDS: oxyCODONE-APAP 5-325 mg Tablet 1 TAB PO (14:21)
--- NOTE | 2021-05-18 14:23 | PC.NURSE ---
Report to facility, they request pt be transported back via ambulance.
== END 2021-05-18 16:13 | disposition home or self-care (01) ==
PROVIDERS: Emergency Provider Family Medicine; PCP Nurse Practitioner Family
DX: D50.0 Iron deficiency anemia secondary to blood loss (chronic) (principal); E87.1 Hypo-osmolality and hyponatremia; Z79.4 Long term (current) use of insulin; E11.9 Type 2 diabetes mellitus without complications
CPT/HCPCS: 80048; 85025; 99283

== ENCOUNTER 2021-05-31 12:25 | Emergency (ER) | payer MEDICARE, MEDICAID, SELFPAY ==
[2021-05-31 12:29] VITALS: BP 119/58; RESP 18; TEMP 37.1; O2SAT 94; BMI 25.7
[2021-05-31 12:39] VITALS: PULSE 79; RESP 18; O2SAT 96
[2021-05-31 13:07] LABS: Basophils % 1.2 %; Eosinophils # 0.2 10^3/uL (0.0-0.8); Eosinophils % 7.5 %; Hematocrit 29.1 % (37.0-47.0); Hemoglobin 8.5 g/dL (11.5-15.3); Lymphocytes # 0.7 10^3/uL (0.8-4.8); Mean Corpuscular HGB Conc 29.2 g/dL (30.0-36.0); Mean Corpuscular Volume 85.6 fl (81-99); Mean Platelet Volume 8.5 fL (7.4-10.4); Monocytes # 0.4 10^3/uL (0.2-0.9); Nucleated Red Blood Cells % 0 %; Platelet Count 165 10^3/cmm (130-400); Red Cell Distribution Width 20.2 % (12.1-15.1); White Blood Count 3.2 10^3/uL (4.0-10.0)
--- NOTE | 2021-05-31 13:14 | W.ED.GENADLT ---
HPI - General Adult General: Chief complaint: Abdominal Pain Stated complaint: ABD DISTENTION Time Seen by Provider: 05/31/21 12:36 History of Present Illness: Patient is a 75-year-old female with history of Menard cirrhosis complicated, esophageal bleeding, colonic AV malformation, chronic anemia who presents the emergency room with complaints of abdominal swelling and and abdominal distention since April. He tells me that he has become increasingly uncomfortable decided to come to the emergency room for evaluation. Patient denies any nausea/vomiting, fever/chills, urinary complaints, melena hematochezia. Patient tells me that he had she never had a paracentesis before. Patient denies any attempts or acute abdominal pain. Denies any chest pain, shortness breath, palpitation, cough, congestion, or sore throat. Patient has no other focal complaints Onset:chronic x 1 month Duration:ongoing Location:home Severity:moderate Associated symptoms: Deny chest pain, dyspnea, nausea, rash, palpitations or vomiting Review of Systems Const: Denies: fever(s) or chills Eyes: Denies: change in vision ENMT: Denies: mouth pain Card: Denies: chest pain or palpitations Resp: Denies: dyspnea or non-productive cough GI: Reports: other (+abdominal distension); Denies: abdominal pain, nausea, vomiting or diarrhea : Denies: dysuria Musc: Denies: extremity pain Skin/Breast: Denies: rash or new lesions Neuro: Denies: weakness in extremities Psych: Reports: other (Normal mood) Tej/Lymph: Denies: easy bruising PFS ED PFSH: Medical History Abdominal pain Abnormal colonoscopy Anemia Anemia 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 Colonoscopy showed multiple AVMs in the ascending and proximal transverse colon which were cauterized. Extensive diverticulosis with internal and external hemorrhoids were noted. MENARD (nonalcoholic steatohepatitis) Portal hypertension EGD esophageal banding on 03/25/16 she has been transfused multiple times, Type 2 diabetes mellitus Surgical History S/P endoscopy Family History Other Family history non-contributory Social History Smoking and tobacco status: never smoked Alcohol intake: never Housing: House Physical Exam Const: COMMON NORMALS: alert HENMT: COMMON NORMALS: atraumatic HEAD & SCALP: atraumatic MOUTH: moist mucous membranes not abnormal Eye: COMMON NORMALS: EOMs intact bilaterally and conjunctivae normal CONJUNCTIVA: Yes conjunctivae normal Neck/C-Spine: COMMON NORMALS: full ROM and supple Resp: COMMON NORMALS: normal respiratory effort and clear to auscultation bilaterally AUSCULTATION: clear to auscultation bilaterally Cardio: COMMON NORMALS: regular rate RATE: regular rate GI: COMMON NORMALS: Soft to palpation and non-tender PALPATION: Yes Soft to palpation OTHER: +abdominal distension. No focal TTP. NO guarding rebound, guarding, rigidity. No CVA tenderness to percussion. Neg Palomares/Neg McBurney's point tenderness, no suprabupic tenderness to palpation. Extremity: COMMON NORMALS: full ROM Neuro: SENSORIUM/ORIENTATION: Yes alert MOTOR EXAM: No Abnormal motor strength present and Other motor observations present (no focal motor deficits) Psych: COMMON NORMALS: speech normal SPEECH: Yes normal speech MOOD & AFFECT: Yes euthymic mood Course Vital Signs: Vital signs: Vital Signs Temperature 97.4 F L 05/31/21 16:39 Pulse Rate 78 05/31/21 16:39 Respiratory Rate 18 05/31/21 16:49 Blood Pressure 151/72 05/31/21 16:39 Pulse Oximetry 99 05/31/21 16:49 [facility] - General Adult Medical Decision Making 75-year-old female with a history of Menard cirrhosis, colonic AVM, esophageal varices presenting to the emergency room with complaints of abdominal distention x1 month. On exam, patient has no focal abdominal tenderness to palpation. No guarding or rebound tenderness noted plus abdominal distention Bedside ultrasound showed moderate ascites. However there is not a clear non compressible pocket for paracentesis. Patient is not currently complaining of any pain. Have given patient close follow-up with Dr. Ruiz for reassessment in 1 week to determine whether patient needs paracentesis. CT abdomen pelvis did not show any other acute pathology at this time. H&H appears to be stable today. Patient has baseline hemoglobin 7 today hemoglobin of 8.9. Patient has no symptoms, melena/hematochezia. Do not suspect acute GI bleed at this time. Patient in addition does not have any abdominal tenderness fever or chills or leukocytosis to suspect SBP. UA is consistent with possible UTI. Events did not show any acute intra-abdominal pathology. There is noted to to fluid collection near the right pelvic rami from previous fracture. Patient does not have fever/ leukocytosis and has no pain with range of motion of the right hip --- I do not suspect that this is a septic joint or an abscess collection Incidental findings of R pelvic fluid collection discussed extensively with patient. Patient received a copy of the CT report with the documented findings. Patient is instructed to follow up urgently with her orthopedic surgeon from [facility]. Patient reports that she will contact her PCP for these findings. I have given patient follow up with our foster care case manager to be seen by Dr. Ruiz for reevaluation of abdominal distension to determine if patient needs paracentesis in 1-2 week(s). Patient aware of a call from our foster care case manager to schedule for appointment(s) and verbalizes understanding of the importance of following up. Rx cephalexin BID for UTI Disposition: Discharge. Patient counseled regarding diagnostic impression, treatment plan. Patient given ED strict return precautions to return for continuation, worsening, or development of new symptoms. Instructed to f/u w/ PCP regarding symptoms today. Patient verbalized understanding. Lab Data : 05/31/21 13:00 05/31/21 13:00 Radiology Impressions Abdomen/Pelvis CT 05/31/21 13:40 IMPRESSION: 1. There are 2 fluid collections in the pelvis with mildly enhancing johns. One of these collection is in the anterior pelvis just deep to the row of purnima over the RIGHT pubic rami. There is in the additional fluid collection surrounding the RIGHT hip. These collections may be postoperative seromas, resolving hematomas or abscesses. There is a tiny focus of air within the anterior collection. 2. Interval development of diffuse soft tissue anasarca in the abdomen and pelvis. 3. Development of a small amount of diffuse ascites. 4. Cirrhosis with splenomegaly and portal venous hypertension. 5. New small bilateral pleural effusions and subsegmental atelectasis. Laboratory Results WBC 3.2 10^3/uL (4.0-10.0) L 05/31/21 13:00 RBC 3.40 10^6/uL (4.1-5.3) L 05/31/21 13:00 Hgb 8.5 g/dL (11.5-15.3) L 05/31/21 13:00 Hct 29.1 % (37.0-47.0) L 05/31/21 13:00 MCV 85.6 fl (81-99) 05/31/21 13:00 MCH 25.0 pg (28.0-34.0) L 05/31/21 13:00 MCHC 29.2 g/dL (30.0-36.0) L 05/31/21 13:00 RDW 20.2 % (12.1-15.1) H 05/31/21 13:00 Plt Count 165 10^3/cmm (130-400) 05/31/21 13:00 MPV 8.5 fL (7.4-10.4) 05/31/21 13:00 Neut % (Auto) 56.0 % 05/31/21 13:00 Lymph % (Auto) 22.0 % 05/31/21 13:00 Latimer % (Auto) 13.0 % 05/31/21 13:00 Eos % (Auto) 7.5 % 05/31/21 13:00 Baso % (Auto) 1.2 % 05/31/21 13:00 Neut # (Auto) 1.80 10^3/uL (1.8-7.7) 05/31/21 13:00 Lymph # (Auto) 0.7 10^3/uL (0.8-4.8) L 05/31/21 13:00 Latimer # (Auto) 0.4 10^3/uL (0.2-0.9) 05/31/21 13:00 Eos # (Auto) 0.2 10^3/uL (0.0-0.8) 05/31/21 13:00 Baso # (Auto) 0.0 10^3/uL (0.0-0.1) 05/31/21 13:00 Nucleated RBC % (auto) 0 % 05/31/21 13:00 Nucleated RBCs # 0.0 /100WBC 05/31/21 13:00 PT 14.90 SECONDS (12.1-14.9) 05/31/21 13:00 INR 1.14 (0.8-1.2) 05/31/21 13:00 APTT 30.8 SECONDS (23.9-36.7) 05/31/21 13:00 Sodium 129 mmol/L (136-145) L 05/31/21 13:00 Potassium 4.7 mmol/L (3.5-5.1) 05/31/21 13:00 Chloride 96 mmol/L (98-107) L 05/31/21 13:00 Carbon Dioxide 22 mmol/L (22-29) 05/31/21 13:00 Anion Gap 15.7 (5-19) 05/31/21 13:00 BUN 13 mg/dL (8-23) 05/31/21 13:00 Creatinine 0.5 mg/dL (0.5-0.9) 05/31/21 13:00 GFR Calculation Not Reportable 05/31/21 13:00 Glucose 140 mg/dL (65-115) H 05/31/21 13:00 POC Glucose 138 mg/dL (70-110) H 05/31/21 12:37 Calculated Osmolality 270 mOsm/kg (285-295) L 05/31/21 13:00 Calcium 8.2 mg/dL (8.5-10.5) L 05/31/21 13:00 Total Bilirubin 0.5 mg/dL (0.15-1.2) 05/31/21 13:00 AST 20 U/L (0-32) 05/31/21 13:00 ALT 7 U/L (0-33) 05/31/21 13:00 Alkaline Phosphatase 209 IU/L (35-105) H 05/31/21 13:00 Total Protein 6.5 g/dL (6.6-8.7) L 05/31/21 13:00 Albumin 2.9 g/dL (3.5-5.2) L 05/31/21 13:00 Globulin 3.6 g/dL (1.3-4.6) 05/31/21 13:00 Lipase 49 U/L (13-60) 05/31/21 13:00 Urine Color Yellow (Yellow) 05/31/21 14:30 Urine Appearance Turbid (CLEAR) 05/31/21 14:30 Urine pH 5 (5-7) 05/31/21 14:30 Ur Specific [place] 1.020 (1.005-1.030) 05/31/21 14:30 Urine Protein 1+ (Negative) H 05/31/21 14:30 Urine Glucose (UA) Norm (Normal) 05/31/21 14:30 Urine Ketones Negative (Negative) 05/31/21 14:30 Urine Blood 3+ (Negative) H 05/31/21 14:30 Urine Nitrate Negative (Negative) 05/31/21 14:30 Urine Bilirubin Neg (Negative) 05/31/21 14:30 Urine Urobilinogen Norm mg/dL (Negative) 05/31/21 14:30 Ur Leukocyte Esterase 2+ (Negative) H 05/31/21 14:30 Urine RBC 15-25 /hpf (0-2) H 05/31/21 14:30 Urine WBC Too numerous to cnt /hpf (0-5) H 05/31/21 14:30 Ur Squamous Epith Cells None /hpf (0-5) 05/31/21 14:30 Amorphous Sediment Not Reportable 05/31/21 14:30 Urine Bacteria 2+ /hpf (NONE) H 05/31/21 14:30 Imaging Data Other Imaging: Radiologist's impression: [facility] [address] [address] Scan Report Signed Patient: Martha Moore Unit #: [id number] : 1945 Age/Sex: 75 / F ADM Date: 05/31/21 Loc: ER Room/Bed: Attending Dr: Ordering Provider/Ordering MD: Reynold Parnell MD Date of Service: 05/31/21 Procedure(s): CT abdomen pelvis w con* [id number] Accession Number(s): [id number] Report Number: [id number] WS: [id number] CT ABDOMEN AND PELVIS WITH CONTRAST HISTORY: abd distension TECHNIQUE: Imaging performed of the abdomen and pelvis with IV contrast.? Single phase imaging of the abdomen. Coronal and sagittal reformats are submitted.? [facility] use at least one of these dose optimization techniques: automated exposure control; mA and/or kV adjustment per patient size (includes targeted exams where dose is matched to clinical indication); or iterative reconstruction. IV CONTRAST: Omnipaque 300; 95 mL IV. Oral contrast: No DLP: 1938.6 mGy.cm COMPARISON: 05/03/2021 Lower thorax: New very small bilateral layering pleural effusions with subsegmental atelectasis at the bases. Marked enlargement of the heart. No hiatal hernia. Liver/biliary system: Lobulated surface of the liver. LEFT lobe is enlarged and the RIGHT is shrunken. Caudate is enlarged. Findings of cirrhosis. Portal vein is patent with mild dilatation. Venous collaterals are noted in the upper abdomen. Gallbladder: Status post cholecystectomy.? Pancreas: Mild atrophy. Spleen: Markedly enlarged spleen measures 17.5 cm in length. Adrenal glands: Normal. Right kidney: Normal. Left kidney: Normal. Aorta: Atherosclerosis aorta. Lymphadenopathy: None. Free fluid: Small amount of ascites has developed throughout the peritoneal cavity. Stranding throughout the mesenteric fat probably edema. There is a moderate amount of anasarca in the soft tissues of the abdomen and pelvis. No free air. GI tract: No obstructive pattern. Abdominal wall: Unremarkable abdominal wall. No hernia. Pelvis: Moderately well distended urinary bladder. There is ascites surrounding the bladder. There is a small collection measuring 4.2 x 3.1 cm just deep to sutures over the RIGHT lower pelvis at the level of the symphysis pubis. There is a small amount of air present within this collection. There is an additional fluid collection posterior to the RIGHT hip which is irregularly shaped and partially obscured by artifact from the RIGHT pelvis hardware. This collection measures 8.6 x 2.8 cm. There is mild peripheral wall enhancement. There is soft tissue anasarca bilaterally. Greater soft tissue inflammation surrounding the RIGHT hip at the surgical site. Bones: No osteoblastic or osteolytic bone disease. Plate and screw fixation involving the RIGHT pelvis stabilizing the fractures described on 05/05/2021 CT/CT abdomen pelvis w con* [id number] IMPRESSION: ? 1.? There are 2 fluid collections in the pelvis with mildly enhancing johns. One of these collection is in the anterior pelvis just deep to the row of purnima over the RIGHT pubic rami. There is in the additional fluid collection surrounding the RIGHT hip. These collections may be postoperative seromas, resolving hematomas or abscesses. There is a tiny focus of air within the anterior collection. 2.? Interval development of diffuse soft tissue anasarca in the abdomen and pelvis. 3.? Development of a small amount of diffuse ascites. 4.? Cirrhosis with splenomegaly and portal venous hypertension. 5.? New small bilateral pleural effusions and subsegmental atelectasis. ? Dictated By: Haylee Cheng DO Signed By: Haylee Cheng DO Signed Date/Time: 05/31/21 1511 DD/ 1458 Discharge Plan Discharge Patient Disposition: Home Clinical Impression: Abdominal distension, Ascites, Acute UTI Condition: Stable Prescriptions: New cephalexin 500 mg capsule 500 mg PO BID 7 Days Qty: 14 0RF No Action Lantus U-100 Insulin 100 unit/mL Solution See Rx Instructions .ROUTE .COMPLEX 0RF Rx Instructions: 20 units qam and 40 units bedtime spironolactone 25 mg tablet 25 mg PO DAILY@0630 0RF acetaminophen 650 mg Tablet Extended Release 650 - 1,300 mg PO PRN 0RF amlodipine 10 mg tablet 10 mg PO DAILY@0630 0RF cholecalciferol (vitamin D3) [Vitamin D3] 50 mcg (2,000 unit) Capsule 50 mcg PO DAILY 0RF potassium chloride 10 mEq capsule, extended release 10 meq PO DAILY 0RF furosemide 20 mg tablet 20 mg PO DAILY 0RF Augmentin 875-125 mg tablet 1 tab PO BID Qty: 14 0RF promethazine 25 mg tablet 25 mg PO Q6H PRN (Reason: nausea and vomiting) Qty: 15 0RF Discharge Orders: Discharge ED (Routine); Ordered 05/31/21 Ordered By: Reynold Parnell Referrals: Layla Paulson NP [Primary Care Provider] - Discharge Diet: Advance as tolerated Discharge Activity: Increase activity as tolerated Patient Instructions: Ascites (ED) Activity Restrictions/Additional Instructions: Our foster care case manager will have you follow-up with Dr. Hernandez in the next week for a paracentesis. You would be expected to have a phone call with our foster care case manager who will put you on the schedule. You can expect a call from us in the next 2-3 days. If you don't hear from us, call us back in the emergency room at [phone]. Please come back if you have any worsening abdominal pain, fever or chills, nausea or vomiting, diarrhea, blood in the stool, inability hold down liquid or solids, or any new concerning complaints. He noticed that you are having any significant abdominal pain, fever/chills, nausea/vomiting, or worsening distention please come the emergency room. Please take your antibiotics as instructed. Watch out for signs of skin changes/redness, mouth redeness or swelling, nausea/vomiting, diarrhea, blood in the urine or any new or concering complaints. Here's your CT report: [facility] [address] [place] [address] CT Scan Report Signed Patient: Martha Moore Unit #: [id number] : 1945 Age/Sex: 75 / F ADM Date: 05/31/21 Loc: ER Room/Bed: Attending Dr: Ordering Provider/Ordering MD: Reynold Parnell MD Date of Service: 05/31/21 Procedure(s): CT abdomen pelvis w con* [id number] Accession Number(s): [id number] Report Number: [id number] WS: [id number] CT ABDOMEN AND PELVIS WITH CONTRAST HISTORY: abd distension TECHNIQUE: Imaging performed of the abdomen and pelvis with IV contrast.? Single phase imaging of the abdomen. Coronal and sagittal reformats are submitted.? [facility] use at least one of these dose optimization techniques: automated exposure control; mA and/or kV adjustment per patient size (includes targeted exams where dose is matched to clinical indication); or iterative reconstruction. IV CONTRAST: Omnipaque 300; 95 mL IV. Oral contrast: No DLP: 1938.6 mGy.cm COMPARISON: 05/03/2021 Lower thorax: New very small bilateral layering pleural effusions with subsegmental atelectasis at the bases. Marked enlargement of the heart. No hiatal hernia. Liver/biliary system: Lobulated surface of the liver. LEFT lobe is enlarged and the RIGHT is shrunken. Caudate is enlarged. Findings of cirrhosis. Portal vein is patent with mild dilatation. Venous collaterals are noted in the upper abdomen. Gallbladder: Status post cholecystectomy.? Pancreas: Mild atrophy. Spleen: Markedly enlarged spleen measures 17.5 cm in length. Adrenal glands: Normal. Right kidney: Normal. Left kidney: Normal. Aorta: Atherosclerosis aorta. Lymphadenopathy: None. Free fluid: Small amount of ascites has developed throughout the peritoneal cavity. Stranding throughout the mesenteric fat probably edema. There is a moderate amount of anasarca in the soft tissues of the abdomen and pelvis. No free air. GI tract: No obstructive pattern. Abdominal wall: Unremarkable abdominal wall. No hernia. Pelvis: Moderately well distended urinary bladder. There is ascites surrounding the bladder. There is a small collection measuring 4.2 x 3.1 cm just deep to sutures over the RIGHT lower pelvis at the level of the symphysis pubis. There is a small amount of air present within this collection. There is an additional fluid collection posterior to the RIGHT hip which is irregularly shaped and partially obscured by artifact from the RIGHT pelvis hardware. This collection measures 8.6 x 2.8 cm. There is mild peripheral wall enhancement. There is soft tissue anasarca bilaterally. Greater soft tissue inflammation surrounding the RIGHT hip at the surgical site. Bones: No osteoblastic or osteolytic bone disease. Plate and screw fixation involving the RIGHT pelvis stabilizing the fractures described on 05/05/2021 CT/CT abdomen pelvis w con* [id number] IMPRESSION: ? 1.? There are 2 fluid collections in the pelvis with mildly enhancing johns. One of these collection is in the anterior pelvis just deep to the row of purnima over the RIGHT pubic rami. There is in the additional fluid collection surrounding the RIGHT hip. These collections may be postoperative seromas, resolving hematomas or abscesses. There is a tiny focus of air within the anterior collection. 2.? Interval development of diffuse soft tissue anasarca in the abdomen and pelvis. 3.? Development of a small amount of diffuse ascites. 4.? Cirrhosis with splenomegaly and portal venous hypertension. 5.? New small bilateral pleural effusions and subsegmental atelectasis. ? Dictated By: Haylee Cheng DO Signed By: Haylee Cheng DO Signed Date/Time: 05/31/21 1511 DD/ 1458 Coding Level of Care Code ED Cash Applications Clerk for [facility] Fwd Exam Comprehensive
[2021-05-31 13:19] LABS: INR 1.14 (0.8-1.2)
[2021-05-31 13:20] LABS: Partial Thromboplastin Time 30.8 SECONDS (23.9-36.7)
[2021-05-31 13:26] LABS: Alanine Aminotransferase 7 U/L (0-33); Albumin Level 2.9 g/dL (3.5-5.2); Alkaline Phosphatase 209 IU/L (35-105); Anion Gap 15.7 (5-19); Aspartate Amino Transferase 20 U/L (0-32); Blood Urea Nitrogen 13 mg/dL (8-23); Calcium 8.2 mg/dL (8.5-10.5); Carbon Dioxide 22 mmol/L (22-29); Chloride 96 mmol/L (98-107); Creatinine Clr Calc Pharmacy 56.7003; Globulin 3.6 g/dL (1.3-4.6); Glucose 140 mg/dL (65-115); Lipase 49 U/L (13-60); Osmolality Calculated 270 mOsm/kg (285-295); Potassium 4.7 mmol/L (3.5-5.1); Sodium 129 mmol/L (136-145); Total Bilirubin 0.5 mg/dL (0.15-1.2); Total Protein 6.5 g/dL (6.6-8.7)
--- NOTE | 2021-05-31 13:40 | CT_ITS ---
WS: [id number] CT ABDOMEN AND PELVIS WITH CONTRAST HISTORY: abd distension TECHNIQUE: Imaging performed of the abdomen and pelvis with IV contrast. Single phase imaging of the abdomen. Coronal and sagittal reformats are submitted. All CT scans at [facility] use at [address] one of these dose optimization techniques: automated exposure control; mA and/or kV adjustment per patient size (includes targeted exams where dose is matched to clinical indication); or iterative re construction. IV CONTRAST: Omnipaque 300; 95 mL IV. Oral contrast: No DLP: 1938.6 mGy.cm COMPARISON: 05/03/2021 Lower thorax: New very small bilateral layering pleural effusions with subsegmental atelectasis at th e bases. Marked enlargement of the heart. No hiatal hernia. Liver/biliary system: Lobulated surface of the liver. LEFT lobe is enlarged and the RIGHT is shrunken . Caudate is enlarged. Findings of cirrhosis. Portal vein is patent with mild dilatation. Venous ge aterals are noted in the upper abdomen. Gallbladder: Status post cholecystectomy. Pancreas: Mild atrophy. Spleen: Markedly enlarged spleen measures 17.5 cm in length. Adrenal glands: Normal. Right kidney: Normal. Left kidney: Normal. Aorta: Atherosclerosis aorta. Lymphadenopathy: None. Free fluid: Small amount of ascites has developed throughout the peritoneal cavity. Stranding through out the mesenteric fat probably edema. There is a moderate amount of anasarca in the soft tissues of the abdomen and pelvis. No free air. GI tract: No obstructive pattern. Abdominal wall: Unremarkable abdominal wall. No hernia. Pelvis: Moderately well distended urinary bladder. There is ascites surrounding the bladder. There is a small collection measuring 4.2 x 3.1 cm just deep to sutures over the RIGHT lower pelvis at the le micheline of the symphysis pubis. There is a small amount of air present within this collection. There is a n additional fluid collection posterior to the RIGHT hip which is irregularly shaped and partially ob scured by artifact from the RIGHT pelvis hardware. This collection measures 8.6 x 2.8 cm. There is mi ld peripheral wall enhancement. There is soft tissue anasarca bilaterally. Greater soft tissue inflam mation surrounding the RIGHT hip at the surgical site. Bones: No osteoblastic or osteolytic bone disease. Plate and screw fixation involving the RIGHT pelvi s stabilizing the fractures described on 05/05/2021 CT/CT abdomen pelvis w con* [id number] IMPRESSION: 1. There are 2 fluid collections in the pelvis with mildly enhancing johns. On e of these collection is in the anterior pelvis just deep to the row of purnima over the RIGHT pubic rami. There is in the additional fluid collection surroun ding the RIGHT hip. These collections may be postoperative seromas, resolving h ematomas or abscesses. There is a tiny focus of air within the anterior collect ion. 2. Interval development of diffuse soft tissue anasarca in the abdomen and pel vis. 3. Development of a small amount of diffuse ascites. 4. Cirrhosis with splenomegaly and portal venous hypertension. 5. New small bilateral pleural effusions and subsegmental atelectasis.
[2021-05-31 14:44] LABS: Add Urine Culture? Yes; Add Urine Microscopic? YES; Bacteria Urine 2+ /hpf; Bilirubin Urine Neg (Negative); Blood Urine 3+ (Negative); Glucose Urine UA Norm (Normal); Ketones Urine Negative (Negative); Leukocyte Esterase Urine 2+ (Negative); Nitrate Urine Negative (Negative); Protein Urine 1+ (Negative); RBC Urine 15-25 /hpf (0-2); Urine Appearance Turbid (CLEAR); Urine Color Yellow (Yellow); Urobilinogen Urine Norm (Negative); WBC Urine TOO NUMEROUS TO CNT /hpf (0-5); pH Urine 5 (5-7)
[2021-05-31] MEDS: iohexol 300 mg/mL 100 mL Btl IV (15:07)
--- NOTE | 2021-05-31 16:00 | PC.NURSE ---
Per the facility, pt will need to be transported via ambulance.
[2021-05-31 16:39] VITALS: BP 151/72; PULSE 78; RESP 18; TEMP 36.3; O2SAT 96
[2021-05-31 16:49] VITALS: RESP 18; O2SAT 99
[2021-05-31] MEDS: oxyCODONE-APAP 5-325 mg Tablet 1 TAB PO (16:49)
[2021-05-31 20:30] LABS: Glucose Point of Care 138 mg/dL (70-110)
--- NOTE | 2021-06-01 08:39 | DCPLANNER ---
Addendum entered by Olivia Stubbs 06/16/21 14:32: Patient had a follow up appointment scheduled for 06.10.[address] Ruiz - patient did attend appointment. Addendum entered by Olivia Stubbs 06/08/21 07:20: territory outside sales manager also had an order to schedule a follow up appointment for patient with [facility] - patient is in alf, and will be followed up with the physician that is at the facility. Original Note: territory outside sales manager had message to schedule a follow up appointment for patient with Dr. Ruiz. territory outside sales manager called the office of Dr. Ruiz, spoke with Ana, gave clinic patients information. A follow up appointment was scheduled for May at 9:00. Clinic will call patient with appointment information.
== END 2021-05-31 17:17 | disposition home or self-care (01) ==
PROVIDERS: Emergency Provider Emergency Medicine; PCP Nurse Practitioner Family
DX: N39.0 Urinary tract infection, site not specified (principal); R18.8 Other ascites; R14.0 Abdominal distension (gaseous); Z79.4 Long term (current) use of insulin; E11.9 Type 2 diabetes mellitus without complications
CPT/HCPCS: 36416; 74177; 80053; 81001; 82962; 83690; 85025; 85610; 85730; 87077; 87086; 87186; 99283; Q9967

== ENCOUNTER 2021-06-10 15:43 | Day surgery (SDC) | payer MEDICARE, MEDICAID, SELFPAY ==
--- NOTE | 2021-06-10 15:47 | US_ITS ---
WS: [id number] ULTRASOUND ABDOMEN LIMITED CLINICAL INFORMATION: ascites COMPARISON: None. FINDINGS: 4 quadrant ultrasound. Mild/moderate ascites US/US abdomen limited [id number] IMPRESSION: Mild to moderate ascites
[2021-06-10 16:00] VITALS: BP 129/57; PULSE 86; RESP 18; TEMP 37.3; O2SAT 94
--- NOTE | 2021-06-10 16:38 | PM.ACPR ---
Acute Procedures Paracentesis: Time out performed: Yes Indication: Ascites Procedure: diagnostic paracentesis Location: [facility] Local anesthetic used: lidocaine 1% Amount of anesthesia used (ml): 10 Bedside ultrasound used: yes, Ascites confirmed and location marked Preparation: sterile prep and drape and 11 blade used to make evangelista in skin Amount of fluid obtained (ml): 3,600 Fluid: clear Post procedure exam: awake, alert, normal BP, normal HR and normal SpO2 Patient tolerated procedure: well and no complications Additional comments: Fluid sent for analyses.
[2021-06-10 16:40] VITALS: BP 126/55; PULSE 80; RESP 18; O2SAT 93
[2021-06-10 17:08] LABS: Mononuclear #, Pertinoneal Fl 0.213 10^3/uL; Polynuclear # Cells, Perit 0.015 10^3/uL
[2021-06-10 17:12] LABS: Appearance, Peritoneal Fluid Hazy (Clear); Color, Peritoneal Fluid Colorless (Pale Yellow); RBC Pertioneal Fluid 0 10^3/uL; WBC Peritoneal Fluid 228 /uL
[2021-06-10 18:34] LABS: Albumin Peritoneal Fluid 0.4 g/dL; Total Protein Peritoneal Fluid 0.6 g/dL
[2021-06-10 18:35] LABS: Amylase Peritoneal Fluid 12 U/L (88-109)
== END 2021-06-10 16:45 | disposition home or self-care (01) ==
PROVIDERS: PCP Family Medicine; Visit Provider Internal Medicine
PROC: (CPT 49082; principal; 2021-06-10 16:00)
DX: R18.8 Other ascites (principal)
CPT/HCPCS: 49082; 76705; 80500; 82042; 82150; 83615; 83986; 84157; 87070; 87075; 87205; 88108; 89050

== ENCOUNTER 2021-06-11 15:07 | Observation (INO) | payer MEDICARE, SELFPAY ==
[2021-06-11] VITALS (17 sets, daily range): BP systolic 107–146; BP diastolic 57–83; PULSE 75–85; RESP 16–20; TEMP 36.8–36.9; O2SAT 94–99; BMI 24.9
--- NOTE | 2021-06-11 15:31 | ED_ITS ---
HPI - Recheck/Abnormal Lab/Rx General: Chief Complaint: Recheck/Abnormal Lab/Rx Stated Complaint: LOW H&H Time Seen by Provider: 06/11/21 15:16 History of Present Illness: Patient comes in by EMS from the residential with concerns for a low hemoglobin. The patient states that they came in and told her that her hemoglobin was in the fives and that she needed to come to the emergency department for blood. Patient denies any abdominal pain, black stool, or other concerns. States she is not on any blood thinners. States she is in the residential after recently breaking her hip and having surgery a month ago. Review of Systems Const: Denies: fever(s) or body aches Eyes: Denies: change in vision or blurry vision ENMT: Denies: throat pain or odynophagia Card: Denies: chest pain or palpitations Resp: Denies: dyspnea or productive cough GI: Denies: abdominal pain, nausea or vomiting : Denies: flank pain or dysuria Musc: Denies: neck pain or back pain Skin/Breast: Denies: rash or pruritus Neuro: Denies: headache(s) or numbness in extremities Psych: Denies: anxiety or change in appetite Endo: Denies: polyuria or excessive sweating PFSH ED PFSH: Medical History Abdominal pain Abnormal colonoscopy Anemia Anemia 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 Colonoscopy showed multiple AVMs in the ascending and proximal transverse colon which were cauterized. Extensive diverticulosis with internal and external hemorrhoids were noted. LLOYD (nonalcoholic steatohepatitis) Portal hypertension EGD esophageal banding on 03/25/16 she has been transfused multiple times, Type 2 diabetes mellitus Surgical History S/P endoscopy Family History Other Family history non-contributory Social History Smoking and tobacco status: never smoked Alcohol intake: never Housing: House Physical Exam Const: COMMON NORMALS: no acute distress, patient oriented x3, healthy appea ring and alert HENMT: COMMON NORMALS: normocephalic and atraumatic HEAD & SCALP: normocephalic and atraumatic Eye: COMMON NORMALS: Equal, round and reactive pupils present and EOMs intact bilaterally PUPIL: Yes Equal, round and reactive pupils present Neck/C-Spine: COMMON NORMALS: full ROM and supple Resp: COMMON NORMALS: normal respiratory effort, No retractions and No use of accessory muscles Cardio: COMMON NORMALS: regular rate and regular rhythm RATE: regular rate RHYTHM: regular rhythm GI: COMMON NORMALS: Soft to palpation and non-tender PALPATION: Yes Soft to palpation OTHER: Mild abdominal distention, black guaiac positive stool Back/Pelvis: COMMON NORMALS: thoracic and lumbar spine normal to inspection and no thoracic nor lumbar tenderness Extremity: COMMON NORMALS: normal to inspection and full ROM NARRATIVE EXTREMITY EXAM: 3+ pitting edema of bilateral lower extremities Neuro: COMMON NORMALS: patient oriented x3 SENSORIUM/ORIENTATION: Yes alert Psych: COMMON NORMALS: mental status grossly normal and cooperative Skin: COMMON NORMALS: no rashes or lesions noted and no wounds GENERAL SKIN EXAM: no rashes or lesions noted OTHER: Pale skin Course Vital Signs: Vital signs: Vital Signs Temperature 98.3 F 06/11/21 15:25 Pulse Rate 75 06/11/21 15:46 Respiratory Rate 20 H 06/11/21 15:46 Blood Pressure 113/64 06/11/21 15:46 Pulse Oximetry 97 06/11/21 15:46 MDM - Recheck/Abnormal Lab/Rx Medical Decision Making Patient comes in by EMS from the residential with concerns for a low hemoglobin. The patient states that they came in and told her that her hemoglobin was in the fives and that she needed to come to the emergency department for blood. Patient denies any abdominal pain, black stool, or other concerns. States she is not on any blood thinners. States she is in the residential after recently breaking her hip and having surgery a month ago. On physical exam she does have slightly pale skin, 3+ pitting edema bilateral lower extremities, abdominal distention which is soft, nontender. Will check labs, a nd reassess. On reassessment I talked to the patient about the test results. Rectal exam shows dark black guaiac positive stool. I discussed the case with the hospitalist, and we will type and cross her in preparation for transfusion. Will admit for observation. Lab Data : 06/11/21 15:34 06/11/21 15:34 Laboratory Results WBC 2.9 10^3/uL (4.0-10.0) L 06/11/21 15:34 RBC 2.54 10^6/uL (4.1-5.3) L 06/11/21 15:34 Hgb 6.1 g/dL (11.5-15.3) L* 06/11/21 15:34 Hct 21.7 % (37.0-47.0) L 06/11/21 15:34 MCV 85.4 fl (81-99) 06/11/21 15:34 MCH 24.0 pg (28.0-34.0) L 06/11/21 15:34 MCHC 28.1 g/dL (30.0-36.0) L 06/11/21 15:34 RDW 18.7 % (12.1-15.1) H 06/11/21 15:34 Plt Count 197 10^3/cmm (130-400) 06/11/21 15:34 MPV 9.0 fL (7.4-10.4) 06/11/21 15:34 Neut % (Auto) 48.3 % 06/11/21 15:34 Lymph % (Auto) 28.7 % 06/11/21 15:34 [place] % (Auto) 18.2 % 06/11/21 15:34 Eos % (Auto) 3.5 % 06/11/21 15:34 Baso % (Auto) 1.0 % 06/11/21 15:34 Neut # (Auto) 1.38 10^3/uL (1.8-7.7) L 06/11/21 15:34 Lymph # (Auto) 0.8 10^3/uL (0.8-4.8) 06/11/21 15:34 [place] # (Auto) 0.5 10^3/uL (0.2-0.9) 06/11/21 15:34 Eos # (Auto) 0.1 10^3/uL (0.0-0.8) 06/11/21 15:34 Baso # (Auto) 0.0 10^3/uL (0.0-0.1) 06/11/21 15:34 Nucleated RBC % (auto) 0 % 06/11/21 15:34 Nucleated RBCs # 0.0 /100WBC 06/11/21 15:34 Sodium 128 mmol/L (136-145) L 06/11/21 15:34 Potassium 4.0 mmol/L (3.5-5.1) 06/11/21 15:34 Chloride 95 mmol/L (98-107) L 06/11/21 15:34 Carbon Dioxide 22 mmol/L (22-29) 06/11/21 15:34 Anion Gap 15.0 (5-19) 06/11/21 15:34 BUN 19 mg/dL (8-23) 06/11/21 15:34 Creatinine 0.8 mg/dL (0.5-0.9) 06/11/21 15:34 GFR Calculation Not Reportable 06/11/21 15:34 Glucose 199 mg/dL (65-115) H 06/11/21 15:34 Calculated Osmolality 274 mOsm/kg (285-295) L 06/11/21 15:34 Calcium 8.3 mg/dL (8.5-10.5) L 06/11/21 15:34 Total Bilirubin 0.6 mg/dL (0.15-1.2) 06/11/21 15:34 AST 17 U/L (0-32) 06/11/21 15:34 ALT 8 U/L (0-33) 06/11/21 15:34 Alkaline Phosphatase 180 IU/L (35-105) H 06/11/21 15:34 Total Protein 6.0 g/dL (6.6-8.7) L 06/11/21 15:34 Albumin 3.1 g/dL (3.5-5.2) L 06/11/21 15:34 Globulin 2.9 g/dL (1.3-4.6) 06/11/21 15:34 Discharge Plan Discharge Patient Disposition: Placed in Observation Clinical Impression: GI bleeding Coding Level of Care Code ED Facility Examiner for Chg Fwd Exam Comprehensive
[2021-06-11 15:43] LABS: Eosinophils # 0.1 10^3/uL (0.0-0.8); Eosinophils % 3.5 %; Hematocrit 21.7 % (37.0-47.0); Lymphocytes # 0.8 10^3/uL (0.8-4.8); Lymphocytes % 28.7 %; Mean Corpuscular HGB Conc 28.1 g/dL (30.0-36.0); Mean Corpuscular Volume 85.4 fl (81-99); Monocytes # 0.5 10^3/uL (0.2-0.9); Monocytes % 18.2 %; Neutrophils # 1.38 10^3/uL (1.8-7.7); Neutrophils % 48.3 %; Nucleated Red Blood Cells % 0 %; Platelet Count 197 10^3/cmm (130-400); Red Blood Count 2.54 10^6/uL (4.1-5.3); Red Cell Distribution Width 18.7 % (12.1-15.1); White Blood Count 2.9 10^3/uL (4.0-10.0)
[2021-06-11 15:45] LABS: Hemoglobin 6.1 g/dL (11.5-15.3)
[2021-06-11 16:10] LABS: Alanine Aminotransferase 8 U/L (0-33); Albumin Level 3.1 g/dL (3.5-5.2); Alkaline Phosphatase 180 IU/L (35-105); Aspartate Amino Transferase 17 U/L (0-32); Blood Urea Nitrogen 19 mg/dL (8-23); Calcium 8.3 mg/dL (8.5-10.5); Carbon Dioxide 22 mmol/L (22-29); Chloride 95 mmol/L (98-107); Globulin 2.9 g/dL (1.3-4.6); Glucose 199 mg/dL (65-115); Osmolality Calculated 274 mOsm/kg (285-295); Sodium 128 mmol/L (136-145); Total Bilirubin 0.6 mg/dL (0.15-1.2)
--- NOTE | 2021-06-11 18:34 | P.HP_ITS ---
Providers/Chief Complaint Primary Care Provider: Jeff Wick DO Chief Complaint: LOW H&H History of Present Illness Martha Moore is a 75 year old female w/ h/o HTN, DM 2, AVM, GI bleed, LLOYD, Portal HTN, diverticulosis was transferred to the ED from [facility] due to the continuing presence of blood in her stool for some years but more so in recent weeks and feeling more fatigue. Pt states that the stool is usually firm but dark. Pt is followed by her GI MD. Has had off and blood transfusion. Diagnosis is inclear but the suspect AVM as the cause of her bleed. Pt here to receive blood transfusion Review of Systems Narrative: Const:?? Denies: fever(s) o r body aches Eyes:?? Denies: change in vision or blurry v ision ENMT:?? Denies: throat junie n or odynophagia Card:?? Denies: chest pain or palpitations Resp:?? Denies: dyspnea or productive cough GI:?? Denies: abdominal pain, nausea or vo miting :?? Denies: flank pain or dysuria Musc:?? Denies: neck pain or back pain Skin/Breast:?? Denies: rash or pr uritus Neuro:?? Denies: headache(s ) or numbness in e xtremities Psych:?? Denies: anxiety or change in appetit e Endo:?? Denies: polyuria o r excessive sweati ng Medications/Allergies Home Medications Medication Instructions Recorded Confirmed Last Taken Type insulin glargine 100 unit/mL See Rx Instructions .ROUTE .COMPLEX 04/19/19 06/11/21 06/11/21 09:00 History subcutaneous solution (Lantus U-100 Insulin) acetaminophen 650 mg 650 - 1,300 mg PO PRN 06/05/20 06/11/21 06/09/21 History tablet,extended release amlodipine 10 mg tablet 10 mg PO DAILY@0630 06/05/20 06/11/21 06/11/21 09:00 History furosemide 20 mg tablet 20 mg PO DAILY 04/07/21 06/11/21 06/11/21 09:00 History Lactobacillus acidophilus 1 1,000 mmu cells PO DAILY 06/11/21 06/11/21 06/11/21 09:00 History billion cell tablet aspirin 325 mg tablet,delayed 325 mg PO DAILY 06/11/21 06/11/21 06/11/21 09:00 History release bethanechol chloride 10 mg tablet See Rx Instructions .ROUTE .COMPLEX 06/11/21 06/11/21 06/11/21 15:00 History bisacodyl 10 mg rectal suppository 10 mg RI DAILY 06/11/21 06/11/21 Unknown History bisacodyl 5 mg tablet 20 mg PO DAILY 06/11/21 06/11/21 Unknown History buspirone 5 mg tablet 5 mg PO DAILY 06/11/21 06/11/21 06/11/21 09:00 History ferrous sulfate 325 mg (65 mg 325 mg PO BID 06/11/21 06/11/21 06/11/21 09:00 History iron) tablet insulin lispro 100 unit/mL See Rx Instructions .ROUTE .COMPLEX 06/11/21 06/11/21 06/11/21 07:30 History subcutaneous pen (Humalog KwikPen (U-100) Insulin) melatonin 5 mg tablet 5 mg PO BEDTIME 06/11/21 06/11/21 Unknown History mirtazapine 7.5 mg tablet 7.5 mg PO BEDTIME 06/11/21 06/11/21 Unknown History omeprazole 40 mg capsule,delayed 40 mg PO BID 06/11/21 06/11/21 06/11/21 07:30 History release oxycodone 5 mg tablet 5 mg PO QID PRN 06/11/21 06/11/21 06/11/21 09:30 History polyethylene glycol 3350 17 17 g PO DAILY 06/11/21 06/11/21 06/11/21 09:00 History gram/dose oral powder sennosides 8.6 mg-docusate sodium 1 tab-cap PO BID 06/11/21 06/11/21 06/11/21 09:00 History 50 mg tablet (Senna-S) sodium phosphates 19 gram-7 118 ml RI DAILY 06/11/21 06/11/21 Unknown History gram/118 mL enema (Fleet Enema) Allergies Allergy/AdvReac Type Severity Reaction Status Date / Time aspirin Allergy Intermediate rash Verified 06/11/21 16:50 atropine Allergy Intermediate unknown Verified 06/11/21 16:50 ciprofloxacin Allergy ALGY-Rash Verified 06/11/21 16:50 hydrocodone Allergy Unknown Verified 06/11/21 16:50 iodine Allergy ALGY-Hives Verified 06/11/21 16:50 meperidine [From Demerol] Allergy ADR-Nausea Verified 06/11/21 16:50 Sulfa (Sulfonamide Allergy ALGY-Rash Verified 06/11/21 16:50 Antibiotics) PFSH Acute PFSH: Medical History Abdominal pain Abnormal colonoscopy Anemia Anemia 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 Colonoscopy showed multiple AVMs in the ascending and proximal transverse colon which were cauterized. Extensive diverticulosis with internal and external hemorrhoids were noted. LLOYD (nonalcoholic steatohepatitis) Portal hypertension EGD esophageal banding on 03/25/16 she has been transfused multiple times, Type 2 diabetes mellitus Surgical History S/P endoscopy Family History Other Family history non-contributory Social History Smoking and tobacco status: never smoked Alcohol intake: never Housing: House Vitals/I&O/Wt Last Vital Signs Temp 98.3 F 06/11/21 15:25 Pulse 80 06/11/21 16:55 Resp 20 H 06/11/21 16:55 BP 120/73 06/11/21 16:55 Pulse Ox 95 06/11/21 16:55 Weight last 48 hrs Weight 65.771 kg Physical Exam Narrative: Const:?? COMMON NORMALS: no acute distress, p atient oriented x3 , healthy appearin g and alert HENMT:?? COMMON NORMALS: no rmocephalic and at raumatic? HEAD & S CALP: normocephali c and atraumatic Eye:?? COMMON NORMALS: Eq ual, round and shawanda ctive pupils prese nt and EOMs intact bilaterally? PUPI L: Yes Equal, roun d and reactive pup ils present Neck/C-Spine:?? COMMON NORMALS: fu ll ROM and supple Resp:?? COMMON NORMALS: no rmal respiratory e ffort, No retracti ons and No use of accessory muscles Cardio:?? COMMON NORMALS: re gular rate and reg ular rhythm? RATE: regular rate? RHY THM: regular rhyth m GI:?? COMMON NORMALS: So ft to palpation an d non-tender? PALP ATION: Yes Soft to palpation? OTHER: Mild abdominal di stention, black gu aiac positive stoo l Back/Pelvis:?? COMMON NORMALS: th oracic and lumbar spine normal to in spection and no th oracic nor lumbar tenderness Extremity:?? COMMON NORMALS: no rmal to inspection and full ROM? REZA RATIVE EXTREMITY E XAM: 3+ pitting e adri of bilateral lower extremities Neuro:?? COMMON NORMALS: pa tient oriented x3? SENSORIUM/ORIENTA TION: Yes alert Psych:?? COMMON NORMALS: me ntal status grossl y normal and coope rative Skin:?? COMMON NORMALS: no rashes or lesions noted and no woun ds? GENERAL SKIN E XAM: no rashes or lesions noted? OTH ER: Pale skin Data : 06/12/21 09:20 06/11/21 15:34 A&P Assessment and plan (1) GI bleeding: Guiac pos stool Hb 6.1 Status: Acute (2) AVM (arteriovenous malformation): Status: Acute (3) Diabetes mellitus type 2 in nonobese: Status: Acute (4) LLOYD (nonalcoholic steatohepatitis): Status: Acute (5) Portal hypertension: Status: Acute (6) Acute on chronic blood loss anemia: Status: Acute Plan Type and cross 2 U PRBC and transfuse Continue home meds F/U H/H Attestations Medical Necessity Statement*: Pt has Ac Blood Loss Anemia from chr GI bleed coming w/ Hb 6.1 Will need multiole blood transfusion. Will need hospitalization for possibly 2 midnights Time Spent in Patient Care: 50 min Coding Level of Care Code Acute Licensed Appraiser for [facility] Fwd Diagnoses GI bleeding K92.2 AVM (arteriovenous malformation) Q27.30 Diabetes mellitus type 2 in nonobese E11.9 LLOYD (nonalcoholic steatohepatitis) K75.81 Portal hypertension K76.6 Acute on chronic blood loss anemia D62
[2021-06-11] MEDS: oxyCODONE 5 mg IR Tab/Cap PO (23:00)
[2021-06-12] VITALS (14 sets, daily range): BP systolic 110–137; BP diastolic 56–74; PULSE 76–86; RESP 15–20; TEMP 36.5–37.2; O2SAT 92–97; BMI 30.6
[2021-06-12 04:21] LABS: Basophils % 0.9 %; Eosinophils # 0.1 10^3/uL (0.0-0.8); Eosinophils % 4.7 %; Hematocrit 22.2 % (37.0-47.0); Lymphocytes # 0.7 10^3/uL (0.8-4.8); Lymphocytes % 31.2 %; Mean Corpuscular HGB Conc 28.8 g/dL (30.0-36.0); Mean Corpuscular Hemoglobin 24.8 pg (28.0-34.0); Mean Platelet Volume 9.1 fL (7.4-10.4); Monocytes # 0.3 10^3/uL (0.2-0.9); Monocytes % 14.1 %; Neutrophils # 1.14 10^3/uL (1.8-7.7); Neutrophils % 48.7 %; Nucleated Red Blood Cells % 0 %; Platelet Count 158 10^3/cmm (130-400); Red Blood Count 2.58 10^6/uL (4.1-5.3); Red Cell Distribution Width 17.6 % (12.1-15.1); White Blood Count 2.3 10^3/uL (4.0-10.0)
[2021-06-12 04:22] LABS: Hemoglobin 6.4 g/dL (11.5-15.3)
[2021-06-12] MEDS: pantoprazole 40 mg SDV IVP (05:20)
[2021-06-12] MEDS: sodium chloride 0.9% (100 ml) 100 ML (05:22)
[2021-06-12] MEDS: amlodipine 10 mg Tablet PO (06:09)
--- NOTE | 2021-06-12 07:00 | PC.NURSE ---
Report received from insurance application investigator at this time.
[2021-06-12] MEDS: sennosides-docusate Tablet 1 TAB PO (09:00)
[2021-06-12] MEDS: oxyCODONE 5 mg IR Tab/Cap PO (09:00)
[2021-06-12] MEDS: FUROsemide 20 mg Tablet PO (09:00)
[2021-06-12] MEDS: BuSPIRONE 10 mg Tablet 5 MG PO (09:00)
[2021-06-12] MEDS: ferrous sulfate EC 325 mg Tablet PO (09:01)
[2021-06-12 09:41] LABS: Hemoglobin 8.2 g/dL (11.5-15.3)
--- NOTE | 2021-06-12 11:00 | PC.NURSE ---
Patient's hemoglobin is 8.2 after the 2nd unit of blood. Dr. Hopson states that he will discharge patient back to the [facility].
--- NOTE | 2021-06-12 11:15 | PM.DCS ---
Discharge Providers Date of Admission: 06/11/21 16:18 Date of Discharge: June 12, 2021 Attending Provider at Admission: Jordin Hopson MD Attending Provider at Discharge: Jordin Hopson MD Primary Care Provider: Jeff Wick DO Diagnoses at Discharge Discharge Diagnosis (1) GI bleeding: Status: Acute (2) AVM (arteriovenous malformation): Status: Acute (3) Diabetes mellitus type 2 in nonobese: Status: Acute (4) LLOYD (nonalcoholic steatohepatitis): Status: Acute (5) Portal hypertension: Status: Acute (6) Acute on chronic blood loss anemia: Status: Acute Reason for Visit Reason for Visit: LOW H&H Hospital Course Hospital Course Martha Moore is a 75 year old female w/ h/o HTN, DM 2, AVM, GI bleed, LLOYD, Portal HTN, diverticulosis was transferred to the ED from [facility] due to the continuing presence of blood in her stool for some years but more so in recent weeks and feeling more fatigue. Pt states that the stool is usually firm but dark. Pt is followed by her GI MD. Has had off and blood transfusion. Diagnosis is inclear but the suspect AVM as the cause of her bleed. Pt here to receive blood transfusion Pt was admitted to [facility]. She had an uncomplicated hospital course. She received 2 U PRBC transfusion. Her Hb improved from 6.1 to 8.2. She felt less fatigued. VSS were stable. She will be transferred back to her [place] and f/u w/ her GI MD who is also carefully observing her for her chr I bleed possibly from the AVM. Physical Exam Narrative: NAD CVS: S1S2, RRR, Early Mur 2/ Resp: CTA Abd: Soft, NT, BS_ Edema (+) ASSESSMENT CLINICIAN: A&Ox3 Discharge Data Studies Completed and Pending Pending at discharge Category Date Time Status Hemoglobin Q4H Lab 06/12/21 13:00 Ordered Hemoglobin Q4H Lab 06/12/21 17:00 Ordered PRBC [Leukocyte Reduced RBC] Routine Lab 06/11/21 16:12 Results Type and Screen Routine Lab 06/11/21 16:12 Results Laboratory Results WBC 2.3 10^3/uL (4.0-10.0) L 06/12/21 04:09 RBC 2.58 10^6/uL (4.1-5.3) L 06/12/21 04:09 Hgb 8.2 g/dL (11.5-15.3) L 06/12/21 09:20 Hct 22.2 % (37.0-47.0) L 06/12/21 04:09 MCV 86.0 fl (81-99) 06/12/21 04:09 MCH 24.8 pg (28.0-34.0) L 06/12/21 04:09 MCHC 28.8 g/dL (30.0-36.0) L 06/12/21 04:09 RDW 17.6 % (12.1-15.1) H 06/12/21 04:09 Plt Count 158 10^3/cmm (130-400) 06/12/21 04:09 MPV 9.1 fL (7.4-10.4) 06/12/21 04:09 Neut % (Auto) 48.7 % 06/12/21 04:09 Lymph % (Auto) 31.2 % 06/12/21 04:09 [place] % (Auto) 14.1 % 06/12/21 04:09 Eos % (Auto) 4.7 % 06/12/21 04:09 Baso % (Auto) 0.9 % 06/12/21 04:09 Neut # (Auto) 1.14 10^3/uL (1.8-7.7) L 06/12/21 04:09 Lymph # (Auto) 0.7 10^3/uL (0.8-4.8) L 06/12/21 04:09 [place] # (Auto) 0.3 10^3/uL (0.2-0.9) 06/12/21 04:09 Eos # (Auto) 0.1 10^3/uL (0.0-0.8) 06/12/21 04:09 Baso # (Auto) 0.0 10^3/uL (0.0-0.1) 06/12/21 04:09 Nucleated RBC % (auto) 0 % 06/12/21 04:09 Nucleated RBCs # 0.0 /100WBC 06/12/21 04:09 Sodium 128 mmol/L (136-145) L 06/11/21 15:34 Potassium 4.0 mmol/L (3.5-5.1) 06/11/21 15:34 Chloride 95 mmol/L (98-107) L 06/11/21 15:34 Carbon Dioxide 22 mmol/L (22-29) 06/11/21 15:34 Anion Gap 15.0 (5-19) 06/11/21 15:34 BUN 19 mg/dL (8-23) 06/11/21 15:34 Creatinine 0.8 mg/dL (0.5-0.9) 06/11/21 15:34 GFR Calculation Not Reportable 06/11/21 15:34 Glucose 199 mg/dL (65-115) H 06/11/21 15:34 Calculated Osmolality 274 mOsm/kg (285-295) L 06/11/21 15:34 Calcium 8.3 mg/dL (8.5-10.5) L 06/11/21 15:34 Total Bilirubin 0.6 mg/dL (0.15-1.2) 06/11/21 15:34 AST 17 U/L (0-32) 06/11/21 15:34 ALT 8 U/L (0-33) 06/11/21 15:34 Alkaline Phosphatase 180 IU/L (35-105) H 06/11/21 15:34 Total Protein 6.0 g/dL (6.6-8.7) L 06/11/21 15:34 Albumin 3.1 g/dL (3.5-5.2) L 06/11/21 15:34 Globulin 2.9 g/dL (1.3-4.6) 06/11/21 15:34 Blood Type O Positive 06/11/21 16:12 Rho(D) Type Positive 06/11/21 16:12 Antibody Screen Negative 06/11/21 16:12 Crossmatch See Detail 06/11/21 16:12 Vitals Last Vital Signs Temp 98.6 F 06/12/21 08:23 Pulse 77 06/12/21 08:23 Resp 18 06/12/21 09:00 BP 118/60 06/12/21 08:23 Pulse Ox 94 06/12/21 09:00 Discharge Plan Discharge Patient Disposition: er LT Condition: Stable Prescriptions: Continued Lantus U-100 Insulin 100 unit/mL Solution See Rx Instructions .ROUTE .COMPLEX 0RF Rx Instructions: 10 units daily acetaminophen 650 mg Tablet Extended Release 650 - 1,300 mg PO PRN 0RF amlodipine 10 mg tablet 10 mg PO DAILY@0630 0RF furosemide 20 mg tablet 20 mg PO DAILY 0RF buspirone 5 mg tablet 5 mg PO DAILY 0RF bethanechol chloride 10 mg Tablet See Rx Instructions .ROUTE .COMPLEX 0RF Rx Instructions: 10 mg orally before meals and at bedtime aspirin 325 mg Tablet,Delayed Release (Dr/Ec) 325 mg PO DAILY 0RF bisacodyl 10 mg Suppository 10 mg DC DAILY 0RF ferrous sulfate 325 mg (65 mg iron) Tablet 325 mg PO BID 0RF Fleet Enema 19-7 gram/118 mL Enema 118 ml DC DAILY 0RF bisacodyl 5 mg Tablet 20 mg PO DAILY 0RF Humalog KwikPen Insulin 100 unit/mL Insulin Pen See Rx Instructions .ROUTE .COMPLEX 0RF Rx Instructions: sliding scale dose subcutaneously Lactobacillus acidophilus 1 billion cell Tablet 1,000 mmu cells PO DAILY 0RF Senna-S 8.6-50 mg Tablet 1 tab-cap PO BID 0RF omeprazole 40 mg Capsule,Delayed Release(Dr/Ec) 40 mg PO BID 0RF polyethylene glycol 3350 17 gram/dose Powder 17 g PO DAILY 0RF oxycodone 5 mg Tablet 5 mg PO QID PRN (Reason: Pain) 0RF mirtazapine 7.5 mg tablet 7.5 mg PO BEDTIME 0RF melatonin 5 mg Tablet 5 mg PO BEDTIME 0RF Discharge Orders: Discharge Order (Routine); Ordered 06/12/21 Ordered By: Jordin Hopson Referrals: [place] [facility] [Outside] Jeff Wick DO [Primary Care Provider] - 7-10 days (should call monday06/14/21 with appointment ) Discharge Diet: Diabetic Discharge Activity: Resume usual activity Patient Instructions: Gastrointestinal Bleeding (GEN), Anemia (GEN), Opioid Safety Discharge Attestations Time Spent in Discharge Care*: greater than 30 min Status at Discharge: Cognitive status at discharge: cognitively intact, Behavioral status at discharge: cooperative, Quality Metrics Clinical Quality Measures [ No reported AMI, CVA or VTE this stay] Coding Level of Care Code Acute Chg FW DC note Diagnoses GI bleeding K92.2 AVM (arteriovenous malformation) Q27.30 Diabetes mellitus type 2 in nonobese E11.9 LLOYD (nonalcoholic steatohepatitis) K75.81 Portal hypertension K76.6 Acute on chronic blood loss anemia D62
[2021-06-12] MEDS: sodium chloride 0.9% (100 ml) 100 ML 50 ML (11:32)
[2021-06-12 13:28] LABS: Hemoglobin 8.6 g/dL (11.5-15.3)
--- NOTE | 2021-06-12 13:49 | PC.NURSE ---
Called Stuart at [facility] and she needs a negative Coviid Test before returning.
[2021-06-12 15:29] LABS: SARS Covid-2 Antigen Negative (Negative)
== END 2021-06-12 16:28 ==
LOC: ER 16:18 → MEDSURG 19:07
PROVIDERS: Internal Medicine; Admitting Provider Internal Medicine; Emergency Provider Emergency Medicine; PCP Family Medicine; Visit Provider Internal Medicine
DX: D62 Acute posthemorrhagic anemia (principal); K92.2 Gastrointestinal hemorrhage, unspecified; Q27.30 Arteriovenous malformation, site unspecified; E11.9 Type 2 diabetes mellitus without complications; K75.81 Nonalcoholic steatohepatitis (NASH); K76.6 Portal hypertension; Z79.4 Long term (current) use of insulin; Z79.82 Long term (current) use of aspirin
CPT/HCPCS: 36415; 36430; 80053; 85018; 85025; 86850; 86900; 86920; 87426; 96374; 99285; C9113; G0378; J1815; P9016

== ENCOUNTER 2021-06-16 11:32 | Inpatient (IN) | payer MEDICARE, SELFPAY ==
[2021-06-16 11:37] VITALS: BMI 23.1
[2021-06-16 11:45] VITALS: BP 139/65; PULSE 98; RESP 16; TEMP 37.3; O2SAT 95
--- NOTE | 2021-06-16 11:57 | XRR_ITS ---
PROCEDURE INFORMATION: Exam: XR Chest Exam date and time: 06/16/2021 11:07 AM Age: 75 years old Clinical indication: Cough and dyspnea; Patient HX: PT was unable to hear to answer questions. Order states that PT is having abd pain with distension, n/v, and blood in stools; Additional info: Dyspnea/cough TECHNIQUE: Imaging protocol: XR of the chest. Views: 1 view. COMPARISON: CR XR chest 1V portable [id number] 05/03/2021 7:02 AM FINDINGS: Lungs: There is subsegmental atelectasis in both lung bases. Pleural spaces: Unremarkable. No pleural effusion. No pneumothorax. Heart/Mediastinum: Unremarkable. No cardiomegaly. Bones/joints: Unremarkable. XR/XR chest 1V portable [id number] IMPRESSION: Bibasilar subsegmental atelectasis.
[2021-06-16] MEDS: ondansetron 2 mg/ML SDV 2 mL 4 MG IVP (12:12)
[2021-06-16] MEDS: morphine 4 mg/mL SDV 1 mL IVP (12:12)
--- NOTE | 2021-06-16 12:22 | CT_ITS ---
WS: [id number] CT ABDOMEN PELVIS TECHNIQUE: Contrast-enhanced CT of the abdomen and pelvis with coronal and sagittal reformatted image s. CLINICAL INFORMATION: abd pain COMPARISON: CT May 31, 2021 DLP: 1941.[address] scans at [facility] use at least one of these dose optimization techniques: automated e xposure control; mA and/or kV adjustment per patient size (includes targeted exams where dose is matc hed to clinical indication); or iterative reconstruction. FINDINGS:Fluid-filled slightly distended small bowel loops in the midabdomen with wall thickening and submucosal enhancement suspicious for small bowel enteritis. This can also be seen with early small bowel obstruction. Distal ileum is decompressed. Additional thickening and mucosal enhancement involv ing the RIGHT colon and transverse colon suspicious for infectious or inflammatory colitis. These fin dings are new since May 31, 2021 Cirrhotic liver with splenomegaly and upper abdominal varices. Findings compatible with portal venous hypertension. Portal vein and splenic vein are patent. Small bilateral pleural effusions. Compressiv e atelectasis in the lung bases. Cardiomegaly. Cholecystectomy clips. Mild scattered abdominal ascites more prominent in the pelvis unchanged since the prior examination. Perihepatic and perisplenic fluid. Air-fluid level in the distended stomach. Adrenal glands are gianna l. Normal renal parenchymal enhancement. No hydronephrosis. Bilateral renal cortical atrophy. Fatty a trophy of the pancreas. Proximal celiac and SMA are patent with mild origin stenosis. Diffuse body wall anasarca. Plate and screw fixation involving the RIGHT pelvis, RIGHT pubic rami and RIGHT acetabulum degrades images in the pelvis. Meyer catheter in place. CT/CT abdomen pelvis w con* [id number] IMPRESSION: 1. Cirrhotic liver with splenomegaly and portal venous hypertension. 2. Fluid distended loops of thickened and enhancing small bowel in the midabdo men suspicious for small bowel enteritis. Distal ileum is decompressed. Early s mall bowel obstruction also an additional consideration. 3. Similar-appearing mucosal enhancement involving the RIGHT colon and transve rse colon suspicious for infectious or inflammatory colitis. 4. Distended stomach with air-fluid level. 5. Scattered abdominal and pelvic ascites unchanged from May 31, 2021. 6. Meyer catheter. 7. Small bilateral pleural effusions with compressive atelectasis in the lung bases slightly progressed compared to previous. 8. Diffuse body wall anasarca. 9. Small previously described fluid collections over the RIGHT pubic rami and RIGHT hip improved and essentially resolved. Notified Ramone Cortez DO at 06/16/2021 1:40 PM.
[2021-06-16 12:23] LABS: ABG PCO2 27.1 mmHg (35-45); Alveolar-Arterial Oxygen Gradi 6.6 mmHg (5-10); Arterial Blood Gas Hematocrit 30.9 % (37-47); Blood Gas Operator Identificat GD; Blood Gas Sample Site Brachial, right; Blood Gas Sample Type Arterial; Carboxyhemoglobin 2.2 %THgb (0.4-20.1); HCO3 ABG 21.3 mmol/L (22-26); HGB O2 Sat 91.2 % (95-100); Methemoglobin 0.7 % (0.4-1.5); Oxygen Device ROOM AIR; Oxygen Saturation ABG 93.9; PO2 ABG 62.7 mmHg (80.0-100.0); Potassium Level - ABG 4.5 mmol/L (3.5-5.0); Total Hemoglobin 10.1 g/dL (12-16)
--- NOTE | 2021-06-16 12:23 | ED_ITS ---
HPI - Nausea/Vomiting/Diarrhea General: Chief complaint: Nausea/Vomiting/Diarrhea Stated complaint: ABDOMINAL DISTENTION/ BLOOD IN STOOL Time Seen by Provider: 06/16/21 11:33 Source: patient Mode of arrival: EMS Limitations: no limitations History of Present Illness: 75-year-old female presents emergency room with complaint ofBlood in the stool. She has a history of AVMs and has been having bloody stools. She was just discharged 4 days ago for the same complaint. Now is having recurrence again. She denies any fever sweats or chills. No dysuria urgency or frequency MD elicited complaint: nausea, vomiting, abdominal pain and other (Productive cough discolored tenacious sputum) Onset (ago): minute(s) Description of vomiting: watery and bilious Associated nausea: Yes Associated abdominal pain: Yes Location of pain: None Radiation: diffuse Pain consistency: constant Severity: moderate Quality: cramping Exacerbating factors: none Relieving factors: none Associated symtoms: Reports bloating, cough, fevers/chills, anorexia, malaise, nausea, short of breath and weakness; Denies altered mental status, anxiety, change in vision, chest pain, diaphoresis, decreased urine output, dizziness, dysuria, epistaxis, fecal incontinence, headache(s), myalgias, numbness, palpitations, rash, syncope, tenesmus or tinnitus Review of Systems Const: Reports: malaise; Denies: diaphoresis Eyes: Denies: change in vision ENMT: Denies: tinnitus or epistaxis Card: Denies: chest pain, palpitations or syncope Resp: Reports: dyspnea and productive cough; Denies: non-productive cough GI: Reports: abdominal pain, nausea and bloating; Denies: fecal incontinence : Denies: dysuria Skin/Breast: Denies: rash or pruritus Neuro: Denies: headache(s) or dizziness Psych: Denies: anxiety PFSH ED PFSH: Medical History Abdominal pain Abnormal colonoscopy Acute on chronic blood loss anemia Anemia Anemia AVM (arteriovenous malformation) 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 Colonoscopy showed multiple AVMs in the ascending and proximal transverse colon which were cauterized. Extensive diverticulosis with internal and external hemorrhoids were noted. GI bleeding LLOYD (nonalcoholic steatohepatitis) LLOYD (nonalcoholic steatohepatitis) Portal hypertension EGD esophageal banding on 03/25/16 she has been transfused multiple times, Tense ascites Type 2 diabetes mellitus Surgical History S/P endoscopy Family History Other Family history non-contributory Social History Smoking and tobacco status: never smoked Alcohol intake: never Housing: House Physical Exam Const: EXAM LIMITATIONS: no altered mental status GENERAL APPEARANCE: cooperative and comfortable ORIENTATION/CONSCIOUSNESS: Yes awake HENMT: COMMON NORMALS: normocephalic, atraumatic and hearing grossly normal bilaterally HEAD & SCALP: normocephalic and atraumatic Neck/C-Spine: COMMON NORMALS: no JVD Resp: COMMON NORMALS: normal respiratory effort, No retractions, No use of accessory muscles and clear to auscultation bilaterally AUSCULTATION: clear to auscultation bilaterally Cardio: COMMON NORMALS: no JVD, regular rate, regular rhythm and No murmurs present (Cardio) RATE: regular rate RHYTHM: regular rhythm GI: COMMON NORMALS: Soft to palpation and No hepatosplenomegaly present AUSCULTATION: Yes normoactive bowel sounds PALPATION: Yes Soft to palpation, No Tenderness to palpation present (GI), No Guarding due to palpation present (GI) and Yes No hepatosplenomegaly present : COMMON NORMALS: Yes no CVA tenderness BLADDER/KIDNEY EXAM: Yes no CVA tenderness Back/Pelvis: COMMON NORMALS: no CVA tenderness Extremity: COMMON NORMALS: normal to inspection, capillary refill normal, no clubbing, cyanosis or edema, no calf tenderness and no pedal edema Skin: COMMON NORMALS: no rashes or lesions noted GENERAL SKIN EXAM: no rashes or lesions noted Course Vital Signs: Vital signs: Vital Signs Temperature 98.0 F 06/19/21 10:50 Pulse Rate 82 06/19/21 10:50 Respiratory Rate 16 06/19/21 10:50 Blood Pressure 138/69 06/19/21 10:50 Pulse Oximetry 93 06/19/21 10:50 MDM - Nausea/Vomiting/Diarrhea Medical Decision Making CT shows question of early bowel obstruction and possible colitis. Hemoglobin i s improved from her last visit however I am concerned about her report of bleeding. Discussed with hospitalist will place her on observation serial hemoglobins. Surgery consult if needed. Discussed with hospitalist orders are written. NG placed in the emergency room C. difficile also being tested Medical Records I reviewed the patient's medical records. Lab Data I reviewed the patient's lab results. : 06/19/21 04:32 06/19/21 04:32 Radiology Impressions Chest X-Ray 06/16/21 11:57 IMPRESSION: Bibasilar subsegmental atelectasis. Abdomen/Pelvis CT 06/16/21 12:22 IMPRESSION: 1. Cirrhotic liver with splenomegaly and portal venous hypertension. 2. Fluid distended loops of thickened and enhancing small bowel in the midabdomen suspicious for small bowel enteritis. Distal ileum is decompressed. Early small bowel obstruction also an additional consideration. 3. Similar-appearing mucosal enhancement involving the RIGHT colon and transverse colon suspicious for infectious or inflammatory colitis. 4. Distended stomach with air-fluid level. 5. Scattered abdominal and pelvic ascites unchanged from May 31, 2021. 6. Meyer catheter. 7. Small bilateral pleural effusions with compressive atelectasis in the lung bases slightly progressed compared to previous. 8. Diffuse body wall anasarca. 9. Small previously described fluid collections over the RIGHT pubic rami and RIGHT hip improved and essentially resolved. Notified Ramone Cortez DO at 06/16/2021 1:40 PM. KUB X-Ray 06/17/21 07:00 Impression: 1. Nasogastric tube in the stomach but has doubled back on itself. 2. Mid abdominal small bowel distention most consistent with severe ileus or early small bowel obstruction. 3. Large amount of fluid in the abdomen. 4. Old right pelvic fracture repair. Laboratory Results WBC 5.9 10^3/uL (4.0-10.0) 06/16/21 12:20 RBC 3.72 10^6/uL (4.1-5.3) L 06/16/21 12:20 Hgb 9.3 g/dL (11.5-15.3) L 06/16/21 12:20 Hct 30.5 % (37.0-47.0) L 06/16/21 12:20 MCV 82.0 fl (81-99) 06/16/21 12:20 MCH 25.0 pg (28.0-34.0) L 06/16/21 12:20 MCHC 30.5 g/dL (30.0-36.0) 06/16/21 12:20 RDW 17.7 % (12.1-15.1) H 06/16/21 12:20 Plt Count 235 10^3/cmm (130-400) 06/16/21 12:20 MPV 8.9 fL (7.4-10.4) 06/16/21 12:20 Neut % (Auto) 89.1 % 06/16/21 12:20 Lymph % (Auto) 6.6 % 06/16/21 12:20 Sibley % (Auto) 3.6 % 06/16/21 12:20 Eos % (Auto) 0.0 % 06/16/21 12:20 Baso % (Auto) 0.2 % 06/16/21 12:20 Neut # (Auto) 5.24 10^3/uL (1.8-7.7) 06/16/21 12:20 Lymph # (Auto) 0.4 10^3/uL (0.8-4.8) L 06/16/21 12:20 [place]y # (Auto) 0.2 10^3/uL (0.2-0.9) 06/16/21 12:20 Eos # (Auto) 0.0 10^3/uL (0.0-0.8) 06/16/21 12:20 Baso # (Auto) 0.0 10^3/uL (0.0-0.1) 06/16/21 12:20 Nucleated RBC % (auto) 0 % 06/16/21 12:20 Nucleated RBCs # 0.0 /100WBC 06/16/21 12:20 Specimen Type Arterial 06/16/21 12:05 Sample Site Brachial, right 06/16/21 12:05 ABG pH 7.50 (7.35-7.45) H 06/16/21 12:05 ABG pCO2 27.1 mmHg (35-45) L 06/16/21 12:05 ABG pO2 62.7 mmHg (80.0-100.0) L 06/16/21 12:05 ABG HCO3 21.3 mmol/L (22-26) L 06/16/21 12:05 ABG O2 Saturation 93.9 06/16/21 12:05 ABG Base Excess -1.0 mmol/L (-2.0-2.0) 06/16/21 12:05 Laurent Test N/a 06/16/21 12:05 A-a O2 Gradient 6.6 mmHg (5-10) 06/16/21 12:05 Hematocrit 30.9 % (37-47) L 06/16/21 12:05 Hgb O2 Saturation 91.2 % (95-100) L 06/16/21 12:05 Carboxyhemoglobin 2.2 %THgb (0.4-20.1) 06/16/21 12:05 Methemoglobin 0.7 % (0.4-1.5) 06/16/21 12:05 Total Hemoglobin 10.1 g/dL (12-16) L 06/16/21 12:05 Sodium 131.0 mmol/L (131-143) 06/16/21 12:05 Potassium 4.5 mmol/L (3.5-5.0) 06/16/21 12:05 Glucose 217.0 mg/dL (70-115) H 06/16/21 12:05 Ionized Calcium 1.0 mmol/L (1.1-1.4) L 06/16/21 12:05 O2 Delivery Device Room air 06/16/21 12:05 Rn Womens Health ID Gd 06/16/21 12:05 Sodium 131 mmol/L (136-145) L 06/16/21 12:20 Potassium 4.7 mmol/L (3.5-5.1) 06/16/21 12:20 Chloride 99 mmol/L (98-107) 06/16/21 12:20 Carbon Dioxide 20 mmol/L (22-29) L 06/16/21 12:20 Anion Gap 16.7 (5-19) 06/16/21 12:20 BUN 26 mg/dL (8-23) H 06/16/21 12:20 Creatinine 0.9 mg/dL (0.5-0.9) 06/16/21 12:20 GFR Calculation Not Reportable 06/16/21 12:20 Glucose 228 mg/dL (65-115) H 06/16/21 12:20 Calculated Osmolality 284 mOsm/kg (285-295) L 06/16/21 12:20 Lactic Acid 2.9 mmol/L (0.5-2.2) H 06/16/21 12:20 Calcium 8.1 mg/dL (8.5-10.5) L 06/16/21 12:20 Total Bilirubin 0.9 mg/dL (0.15-1.2) 06/16/21 12:20 AST 19 U/L (0-32) 06/16/21 12:20 ALT 9 U/L (0-33) 06/16/21 12:20 Alkaline Phosphatase 184 IU/L (35-105) H 06/16/21 12:20 Creatine Kinase 25 U/L (26-192) L 06/16/21 12:20 Total Protein 6.3 g/dL (6.6-8.7) L 06/16/21 12:20 Albumin 3.2 g/dL (3.5-5.2) L 06/16/21 12:20 Globulin 3.1 g/dL (1.3-4.6) 06/16/21 12:20 Urine Color Yellow (Yellow) 06/16/21 12:25 Urine Appearance Cloudy (CLEAR) 06/16/21 12:25 Urine pH 5 (5-7) 06/16/21 12:25 Ur Specific [place] 1.025 (1.005-1.030) 06/16/21 12:25 Urine Protein Neg (Negative) 06/16/21 12:25 Urine Glucose (UA) Norm (Normal) 06/16/21 12:25 Urine Ketones Negative (Negative) 06/16/21 12:25 Urine Blood Trace (Negative) H 06/16/21 12:25 Urine Nitrate Negative (Negative) 06/16/21 12:25 Urine Bilirubin 1+ (Negative) H 06/16/21 12:25 Urine Urobilinogen 1 mg/dL (Negative) H 06/16/21 12:25 Ur Leukocyte Esterase 2+ (Negative) H 06/16/21 12:25 Urine RBC 0-4 /hpf (0-2) H 06/16/21 12:25 Urine WBC 25-40 /hpf (0-5) H 06/16/21 12:25 Ur Squamous Epith Cells 5-10 /hpf (0-5) H 06/16/21 12:25 Amorphous Sediment Not Reportable 06/16/21 12:25 Urine Bacteria None /hpf (NONE) 06/16/21 12:25 Urine Mucus 1+ /hpf 06/16/21 12:25 Urine Yeast 1+ /hpf H 06/16/21 12:25 Discharge Plan Discharge Patient Disposition: Admitted As Inpatient Admit Provider: Maritza Fitzpatrick Clinical Impression: Lower GI bleed, AVM (arteriovenous malformation) of colon with hemorrhage Condition: Stable Discharge Diet: Cardiac Discharge Activity: Increase activity as tolerated Coding Level of Care Code ED Technical Support Engineer for Michelleg Fwd Exam Comprehensive
[2021-06-16 12:25] LABS: Basophils % 0.2 %; Hematocrit 30.5 % (37.0-47.0); Hemoglobin 9.3 g/dL (11.5-15.3); Lymphocytes # 0.4 10^3/uL (0.8-4.8); Lymphocytes % 6.6 %; Mean Corpuscular HGB Conc 30.5 g/dL (30.0-36.0); Mean Platelet Volume 8.9 fL (7.4-10.4); Monocytes # 0.2 10^3/uL (0.2-0.9); Monocytes % 3.6 %; Neutrophils # 5.24 10^3/uL (1.8-7.7); Neutrophils % 89.1 %; Nucleated Red Blood Cells % 0 %; Platelet Count 235 10^3/cmm (130-400); Red Blood Count 3.72 10^6/uL (4.1-5.3); Red Cell Distribution Width 17.7 % (12.1-15.1); White Blood Count 5.9 10^3/uL (4.0-10.0)
[2021-06-16 12:43] VITALS: BP 128/57; PULSE 96; RESP 16; O2SAT 95
[2021-06-16 12:51] LABS: Alanine Aminotransferase 9 U/L (0-33); Albumin Level 3.2 g/dL (3.5-5.2); Alkaline Phosphatase 184 IU/L (35-105); Anion Gap 16.7 (5-19); Aspartate Amino Transferase 19 U/L (0-32); Blood Urea Nitrogen 26 mg/dL (8-23); Calcium 8.1 mg/dL (8.5-10.5); Carbon Dioxide 20 mmol/L (22-29); Chloride 99 mmol/L (98-107); Creatine Phosphokinase 25 U/L (26-192); Globulin 3.1 g/dL (1.3-4.6); Glucose 228 mg/dL (65-115); Osmolality Calculated 284 mOsm/kg (285-295); Potassium 4.7 mmol/L (3.5-5.1); Sodium 131 mmol/L (136-145); Total Bilirubin 0.9 mg/dL (0.15-1.2); Total Protein 6.3 g/dL (6.6-8.7)
[2021-06-16 13:00] LABS: Add Urine Microscopic? YES; Bilirubin Urine 1+ (Negative); Blood Urine Trace (Negative); Glucose Urine UA Norm (Normal); Ketones Urine Negative (Negative); Leukocyte Esterase Urine 2+ (Negative); Nitrate Urine Negative (Negative); Protein Urine Neg (Negative); RBC Urine 0-4 /hpf (0-2); Specific Gravity, Urine 1.025 (1.005-1.030); Urine Appearance Cloudy (CLEAR); Urine Color Yellow (Yellow); Urobilinogen Urine 1 mg/dL (Negative); WBC Urine 25-40 /hpf (0-5); pH Urine 5 (5-7)
[2021-06-16 13:01] LABS: Add Urine Culture? Yes; Mucus Urine 1+ /hpf; Other Sediment, Urine BUD YEAST W/HYPHAE
--- NOTE | 2021-06-16 13:12 | PC.PHAR ---
pt is from [facility]-lorraine santo nurse from [facility] the pt only had a oxycodone and a one time dose of zofran-states the pt refused all her am meds except from her insulin
[2021-06-16] MEDS: iohexol 350 mg/mL 100 mL Btl IV (13:16)
[2021-06-16 15:27] LABS: Lactic Sepsis W/Reflex 2.9 mmol/L (0.5-2.2)
[2021-06-16] MEDS: piperacillin-tazobactam 3.375 GM in sodium chloride 0.9% (plus) 50 ML IV ×2 (15:31→21:25)
[2021-06-16 16:01] VITALS: BP 119/55; PULSE 81; RESP 16; O2SAT 94
[2021-06-16] MEDS: sodium chloride 0.9% 1,000 ML 999 ML IV (16:16)
[2021-06-16 17:00] LABS: Reflex Lactate Order REFLEX LACTIC ORDERD
--- NOTE | 2021-06-16 17:03 | P.HP_ITS ---
Providers/Chief Complaint Primary Care Provider: Jeff Wick DO Chief Complaint: ABDOMINAL DISTENTION/ BLOOD IN STOOL History of Present Illness Martha Moore is a 75 year old female who was recently discharged from the hospital after management of acute on chronic anemia with 2 units of PRBC, hospitalization was only for 1 day he she was discharged back to senior care with follow-up with Dr. Ruiz, hemoglobin improved from 6.1-8.2. Today she presented to the hospital for worsening abdominal pain. Patient is stating that she was nauseous, symptoms started yesterday, she experienced multiple episode of emesis, she has not noticed any blood in vomitus however she has been noticing dark stool which she is attributing to iron supplementation. Her emesis was associated abdominal pain. She did not endorse fever, chest pain, shortness of breath. In the ER she was diagnosed with small bowel obstruction, NG tube was placed, I requested lactic acid and dose of Zosyn for her colitis. She carries history of Menard, AV malformation, GI bleed, portal hypertension, diverticulosis to have diabetes and hypertension. She does take aspirin high-dose, at the time of my evaluation her abdomen is soft nontender on deep palpation, noticed lactic acid, no leukocytosis No active signs of peritonitis She was saturating well on room air Awake and alert No active signs of hepatic encephalopathy Review of Systems Const: Reports: body aches; Denies: fever(s) Eyes: Denies: change in vision ENMT: Denies: throat pain Card: Denies: chest pain Resp: Denies: dyspnea GI: Reports: abdominal pain, nausea, vomiting, early satiety, bloating and melena Musc: Reports: back pain Skin/Breast: Reports: lesions Neuro: Denies: headache(s) Psych: Reports: anxiety Endo: Denies: polyuria Tej/Lymph: Reports: easy bruising All/Imm: Denies: urticaria Medications/Allergies Home Medications Medication Instructions Recorded Confirmed Last Taken Type amlodipine 10 mg tablet 10 mg PO DAILY@06/05/20 06/16/21 06/15/21 History furosemide 20 mg tablet 20 mg PO QAM 04/07/21 06/16/21 06/15/21 History aspirin 325 mg tablet,delayed 325 mg PO DAILY@06/11/21 06/16/21 06/15/21 History release bethanechol chloride 10 mg tablet See Rx Instructions .ROUTE .COMPLEX 06/11/21 06/16/21 06/15/21 History bisacodyl 10 mg rectal suppository 10 mg WV DAILY PRN 06/11/21 06/16/21 Unknown History bisacodyl 5 mg tablet 20 mg PO DAILY PRN 06/11/21 06/16/21 Unknown History buspirone 5 mg tablet 5 mg PO DAILY 06/11/21 06/16/21 06/15/21 History ferrous sulfate 325 mg (65 mg 325 mg PO BID 06/11/21 06/16/21 06/15/21 History iron) tablet insulin lispro 100 unit/mL See Rx Instructions .ROUTE .COMPLEX 06/11/21 06/16/21 06/16/21 History subcutaneous pen (Humalog KwikPen 7 units (U-100) Insulin) melatonin 5 mg tablet 5 mg PO BEDTIME 06/11/21 06/16/21 06/15/21 History mirtazapine 7.5 mg tablet 7.5 mg PO BEDTIME 06/11/21 06/16/21 06/15/21 History omeprazole 40 mg capsule,delayed 40 mg PO BID 06/11/21 06/16/21 06/15/21 History release oxycodone 5 mg tablet 5 mg PO Q4H PRN MDD 30mg 06/11/21 06/16/21 06/16/21 07:43 History polyethylene glycol 3350 17 17 g PO DAILY 06/11/21 06/16/21 06/11/21 09:00 History gram/dose oral powder sennosides 8.6 mg-docusate sodium 1 tab-cap PO BID 06/11/21 06/16/21 06/11/21 09:00 History 50 mg tablet (Senna-S) sodium phosphates 19 gram-7 118 ml WV DAILY PRN 06/11/21 06/16/21 Unknown History gram/118 mL enema (Fleet Enema) acetaminophen 500 mg tablet 1,000 mg PO Q6H PRN 06/16/21 06/16/21 Unknown History diphenhydramine HCl 25 mg capsule 25 mg PO TID 06/16/21 06/16/21 06/15/21 History (Benadryl) insulin glargine 100 unit/mL (3 10 unit SUBCUT DAILY@08 06/16/21 06/16/21 06/16/21 History mL) subcutaneous pen (Lantus Solostar U-100 Insulin) magnesium hydroxide 400 mg/5 mL 30 ml PO DAILY PRN 06/16/21 06/16/21 Unknown History oral suspension (Milk of Magnesia) ondansetron HCl 4 mg tablet 4 mg PO .ONCE 06/16/21 06/16/21 06/16/21 08:00 History (Zofran) Allergies Allergy/AdvReac Type Severity Reaction Status Date / Time aspirin Allergy Intermediate rash Verified 06/16/21 13:11 atropine Allergy Intermediate unknown Verified 06/16/21 13:11 ciprofloxacin Allergy ALGY-Rash Verified 06/16/21 13:11 hydrocodone Allergy Unknown Verified 06/16/21 13:11 iodine Allergy ALGY-Hives Verified 06/16/21 13:11 meperidine [From Demerol] Allergy ADR-Nausea Verified 06/16/21 13:11 Sulfa (Sulfonamide Allergy ALGY-Rash Verified 06/16/21 13:11 Antibiotics) PFSH Acute PFSH: Medical History Abdominal pain Abnormal colonoscopy Anemia Anemia 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 Colonoscopy showed multiple AVMs in the ascending and proximal transverse colon which were cauterized. Extensive diverticulosis with internal and external hemorrhoids were noted. MENARD (nonalcoholic steatohepatitis) Portal hypertension EGD esophageal banding on 03/25/16 she has been transfused multiple times, Type 2 diabetes mellitus Surgical History S/P endoscopy Family History Other Family history non-contributory Social History Smoking and tobacco status: never smoked Alcohol intake: never Housing: House Vitals/I&O/Wt Last Vital Signs Temp 99.2 F 06/16/21 11:45 Pulse 81 06/16/21 16:01 Resp 16 06/16/21 16:01 BP 119/55 06/16/21 16:01 Pulse Ox 94 06/16/21 16:01 Weight last 48 hrs Weight 61.235 kg Physical Exam Narrative: Patient is pleasant and cooperative Able to mention above HPI No active sign of hepatic encephalopathy Distended abdomen did not appreciate tenderness in right or left upper quadrant No active signs of peritonitis No tenderness at all on superficial deep palpation S1, S2, soft systolic murmur grade 2/6 right second intercostal space Clinically patient looks hypervolemic With 2+ pitting edema Circular hyperemic rash on lower extremities Saturating well on room air, no active respiratory distress Urinary Catheter Management: Meyer: Cath Placed During This Visit: yes Urinary Catheter Date of Insertion: 06/16/21 Urinary Catheter Time of Insertion: 12:41 Data : 06/16/21 12:20 06/16/21 12:20 Micro: Microbiology 06/16/21 12:32 Blood Culture - Preliminary Blood SPECIMEN COLLECTED 06/16/21 12:33 Blood Culture - Preliminary Blood SPECIMEN COLLECTED A&P Assessment and plan (1) Colitis: Status: Acute (2) SBO (small bowel obstruction): Status: Acute (3) AVM (arteriovenous malformation): Status: Acute (4) Diabetes mellitus type 2 in nonobese: Status: Acute (5) EMNARD (nonalcoholic steatohepatitis): Status: Acute Plan Partial SBO 250 cc obtained on placement of NG tube Patient symptoms improved Abdomen is soft No active to the peritonitis No leukocytosis or fever Lactic acid noted Noticed colitis on the CT scan She is hemodynamically stable My suspicion for mesenteric ischemia is low We will keep her on Zosyn, NG placed NG will be clamped if no output noted in next few hours, In case of any worsening consider general surgery consult Repeat/serial abdominal exam and KUB UTI: Zosyn will suffice microorganism coverage No active hepatic encephalopathy Abdomen distended secondary to ascites Nontender abdomen My suspicion for SBP is low as well Full code N.p.o. DVT prophylaxis: SCDs In case of hypotension use albumin Chronic anemia: Hemoglobin stable Last A1c level 5.1 Attestations Medical Necessity Statement*: Anticipating more than 2 midnights Time Spent in Patient Care: 50mins Coding Level of Care Code Acute Front End Developer Javascript Html Css for Chg Fwd Diagnoses Colitis K52.9 SBO (small bowel obstruction) K56.609 AVM (arteriovenous malformation) Q27.30 Diabetes mellitus type 2 in nonobese E11.9 MENARD (nonalcoholic steatohepatitis) K75.81
[2021-06-16 17:51] VITALS: BMI 30.7
[2021-06-16 18:19] VITALS: BP 133/63; PULSE 92; RESP 17; TEMP 37.3; O2SAT 90
[2021-06-16 18:49] LABS: Lactic Acid level (Lactate) 1.6 mmol/L (0.5-2.2)
[2021-06-16] MEDS: sodium chloride 0.9% 1,000 ML 50 ML IV (18:53)
[2021-06-16 19:33] LABS: Glucose Point of Care 218 mg/dL (70-110)
[2021-06-16 20:00] VITALS: BP 125/64; PULSE 91; RESP 17; TEMP 36.4; O2SAT 94
[2021-06-16 20:56] LABS: Ammonia 51 umol/L (11-51)
[2021-06-16 21:03] LABS: Glucose Point of Care 213 mg/dL (70-110)
[2021-06-17] VITALS (14 sets, daily range): BP systolic 115–124; BP diastolic 52–65; PULSE 81–95; RESP 16–19; TEMP 36.6–37.7; O2SAT 90–93
[2021-06-17 00:10] LABS: Glucose Point of Care 188 mg/dL (70-110)
[2021-06-17] MEDS: piperacillin-tazobactam 3.375 GM in sodium chloride 0.9% (plus) 50 ML IV ×2 (05:09→16:14)
[2021-06-17 05:10] LABS: Basophils % 0.3 %; Hemoglobin 7.7 g/dL (11.5-15.3); Lymphocytes # 0.6 10^3/uL (0.8-4.8); Lymphocytes % 17.3 %; Mean Corpuscular HGB Conc 28.5 g/dL (30.0-36.0); Mean Corpuscular Hemoglobin 24.1 pg (28.0-34.0); Mean Corpuscular Volume 84.4 fl (81-99); Mean Platelet Volume 9.4 fL (7.4-10.4); Monocytes # 0.3 10^3/uL (0.2-0.9); Monocytes % 10.1 %; Neutrophils # 2.41 10^3/uL (1.8-7.7); Nucleated Red Blood Cells % 0 %; Platelet Count 167 10^3/cmm (130-400); Red Cell Distribution Width 17.4 % (12.1-15.1); White Blood Count 3.4 10^3/uL (4.0-10.0)
[2021-06-17 05:33] LABS: Alanine Aminotransferase 6 U/L (0-33); Albumin Level 2.6 g/dL (3.5-5.2); Alkaline Phosphatase 147 IU/L (35-105); Anion Gap 15.2 (5-19); Aspartate Amino Transferase 19 U/L (0-32); Blood Urea Nitrogen 29 mg/dL (8-23); Carbon Dioxide 19 mmol/L (22-29); Chloride 101 mmol/L (98-107); Glucose 172 mg/dL (65-115); Magnesium 1.8 mg/dL (1.7-2.3); Osmolality Calculated 282 mOsm/kg (285-295); Potassium 4.2 mmol/L (3.5-5.1); Sodium 131 mmol/L (136-145); Total Bilirubin 0.7 mg/dL (0.15-1.2); Total Protein 5.6 g/dL (6.6-8.7)
[2021-06-17 06:20] LABS: Glucose Point of Care 189 mg/dL (70-110)
--- NOTE | 2021-06-17 07:00 | XR_ITS ---
WS: [id number] KUB, AP portable supine, 06/17/2021 Clinical Data: SBO Comparison: CT abdomen, 06/16/2021 Findings: The nasogastric tube appears to be within the stomach. The tube has doubled back on itself and the ti p ends in the proximal stomach. There is a dilated bile in the central portion abdomen with a large a mount of fluid in the abdomen and pelvis. There are clips in the right upper quadrant from a cholecys tectomy. There are plates and screws repairing an old right pelvic, acetabular and pubic symphysis fracture. XR/XR KUB portable [id number] Impression: 1. Nasogastric tube in the stomach but has doubled back on itself. 2. Mid abdominal small bowel distention most consistent with severe ileus or ea rly small bowel obstruction. 3. Large amount of fluid in the abdomen. 4. Old right pelvic fracture repair.
--- NOTE | 2021-06-17 08:46 | P.PN_ITS ---
Subjective Subjective: Patient had 1 small bowel movement yesterday NG has been clamped since last night Hemoglobin 10.7 Hemodynamically stable Afebrile Awake and alert She is endorsing that she is miserable because of her decline in her health, she was asking if her abdominal distention will ever go away Vitals/I&O/Wt Last Vital Signs Temp 98.9 F 06/17/21 08:00 Pulse 95 06/17/21 08:00 Resp 17 06/17/21 08:00 BP 118/65 06/17/21 08:00 Pulse Ox 90 06/17/21 08:00 06/16/21 06/17/21 06/17/21 22:59 06:59 14:59 Intake Total 1050 / 1050 50 / 1100 Output Total 0 / 0 Balance 1050 / 1050 49 / 1099 Weight last 48 hrs Weight 82.01 kg Weight 81.238 kg Weight 61.235 kg Physical Exam Narrative: This morning patient was laying comfortably in her bed tympanic abdominal sounds Suction well on room air Nonfocal neuro exam Abdomen distended, ascites, prominent vessels No active hepatic encephalopathy Nontender abdomen on superficial deep palpation Edema of legs noted NG tube has been clamped Urinary Catheter Management: Meyer: Cath Placed During This Visit: yes Urinary Catheter Date of Insertion: 06/16/21 Urinary Catheter Time of Insertion: 12:41 Data : 06/17/21 04:52 06/17/21 04:52 Micro: Microbiology 06/16/21 12:32 Blood Culture - Preliminary Blood SPECIMEN COLLECTED 06/16/21 12:33 Blood Culture - Preliminary Blood SPECIMEN COLLECTED A&P Assessment and plan (1) SBO (small bowel obstruction): Status: Acute (2) Colitis: Status: Acute (3) AVM (arteriovenous malformation): Status: Acute (4) Diabetes mellitus type 2 in nonobese: Status: Acute (5) LLOYD (nonalcoholic steatohepatitis): Status: Acute Plan Enteritis, Colitis SBO NG has been clamped, plan to remove NG tube today after follow-up with KUB results Abdomen is soft No active signs of peritonitis Lactic acid has improved Afebrile, Continue Zosyn Once NG taken out, advance diet to full liquid Patient is full code Plan to [facility] tomorrow Drop in hemoglobin noted, she is hemodynamically stable, Will give her 1 bag of albumin DVT prophylaxis: SCDs Stool studies, C. difficile studies pending Discontinue IV fluids Hypocalcemia: IV calcium repleted Attestations Medical Necessity Statement*: Discharge tomorrow if stable discharge tomorrow if stable Time Spent in Patient Care: 20 Coding Level of Care Code Acute Buttermaker Helper for Chg Fwd Diagnoses SBO (small bowel obstruction) K56.609 Colitis K52.9 AVM (arteriovenous malformation) Q27.30 Diabetes mellitus type 2 in nonobese E11.9 LLOYD (nonalcoholic steatohepatitis) K75.81
[2021-06-17] MEDS: albumin 12.5 GM/250 ML VIAL IV (10:03)
[2021-06-17] MEDS: calcium gluconate 0.9% NaCL 1 GM/50 ML PREMIX IV ×2 (10:53→11:25)
--- NOTE | 2021-06-17 10:55 | PC.CHAP ---
Pastoral Care Encounter/Spiritual Assessment Type of Contact [x] Declined orientation and mobility instructor visit [] Patient/Family/Request visit [] Outpatient visit [] Follow-up visit [] Physician referral [] Code/Alert [] Routine visit [] Staff referral [] Actively dying [] Patient sleeping [] Family support [] [] Out of room [] Palliative care [] [] Receiving care in room [] Pre-surgical visit [] Trauma [] Long length of stay [] ICU visit [] Other: Relational/Emotional Strength [] Patient feels connected with others/family/visitors/staff [] Distress [] Loneliness/isolation [] Abandonment Spirituality of Patient [] Person of Radha [] Attends Rastafari of their Radha [] Believes in Prayer [] Reads Bible or Zoroastrian materials [] There are Spiritual issues to be addressed Door Hanger Interventions [] Prayer [] Active listening [] Non-anxious presence [] Spiritual/emotional support [] Crisis/trauma care [] Spiritual counseling [] Bereavement support [] Provided bereavement packet [] Provided Bible/devotional materials [] Provided toy/stuffed animal, coloring book to patient or family member [] Provided Communion [] Anointing/[place] [] Salvation [] Completed spiritual assessment [] Other: Impact on Illness or Injury [] Angry [] Fearful [] Anxious [] Often cries [] Exhaustion [] Unable to work [] Unable to attend evangelical [] Unable to walk/stand [] Unable to read [] Unable to drive [] Unable to eat/drink [] Unable to sleep [] Unable to be with family [] Patient intubated [] Other: Summary Declined orientation and mobility instructor visit Time spent with patient 5 mins
[2021-06-17 11:50] LABS: Glucose Point of Care 187 mg/dL (70-110)
[2021-06-17] MEDS: sodium chloride 0.9% (100 ml) 100 ML (15:23)
[2021-06-17 16:00] LABS: SARS Covid-2 Antigen Negative (Negative)
[2021-06-17] MEDS: morphine 4 mg/mL SDV 1 mL 2 MG IVP ×2 (16:28→23:13)
[2021-06-17 17:44] LABS: Glucose Point of Care 151 mg/dL (70-110)
[2021-06-17 21:19] LABS: Glucose Point of Care 163 mg/dL (70-110)
[2021-06-18] VITALS (8 sets, daily range): BP systolic 124–142; BP diastolic 62–71; PULSE 80–87; RESP 17–19; TEMP 36.3–36.9; O2SAT 92–96
[2021-06-18 04:23] LABS: Glucose Point of Care 122 mg/dL (70-110)
[2021-06-18 05:27] LABS: Basophils % 1.2 %; Eosinophils # 0.1 10^3/uL (0.0-0.8); Eosinophils % 3.2 %; Hematocrit 28.8 % (37.0-47.0); Hemoglobin 8.5 g/dL (11.5-15.3); Lymphocytes # 0.6 10^3/uL (0.8-4.8); Lymphocytes % 24.1 %; Mean Corpuscular HGB Conc 29.5 g/dL (30.0-36.0); Mean Corpuscular Hemoglobin 25.4 pg (28.0-34.0); Monocytes # 0.4 10^3/uL (0.2-0.9); Monocytes % 14.9 %; Neutrophils % 56.2 %; Nucleated Red Blood Cells % 0 %; Platelet Count 115 10^3/cmm (130-400); Red Blood Count 3.35 10^6/uL (4.1-5.3); White Blood Count 2.5 10^3/uL (4.0-10.0)
[2021-06-18 05:48] LABS: Anion Gap 12.7 (5-19); Blood Urea Nitrogen 22 mg/dL (8-23); Calcium 7.8 mg/dL (8.5-10.5); Carbon Dioxide 21 mmol/L (22-29); Chloride 103 mmol/L (98-107); Glucose 118 mg/dL (65-115); Osmolality Calculated 280 mOsm/kg (285-295); Potassium 3.7 mmol/L (3.5-5.1); Sodium 133 mmol/L (136-145)
[2021-06-18 06:21] LABS: Glucose Point of Care 125 mg/dL (70-110)
--- NOTE | 2021-06-18 09:11 | PM.PN ---
Subjective Subjective: C. difficile positive, FOBT positive, status post 1 unit PRBC hemoglobin 8.5 No active emesis Abdomen is soft She received albumin yesterday as well She was watching television when entered the room She shared her feelings that sometimes she thinks she is going to because of her chronic illness She asked me why her legs are swollen, I explained her the etiology which is liver failure, low albumin Vitals/I&O/Wt Last Vital Signs Temp 97.3 F L 06/18/21 03:51 Pulse 84 06/18/21 03:51 Resp 18 06/18/21 03:51 BP 131/70 06/18/21 03:51 Pulse Ox 94 06/18/21 03:51 06/17/21 06/18/21 06/18/21 22:59 06:59 14:59 Intake Total 1330 / 1850 900 / 2750 Output Total 800 / 1625 Balance 1330 / 1025 100 / 1125 Weight last 48 hrs Weight 82.01 kg Weight 81.238 kg Weight 61.235 kg Physical Exam Narrative: Patient was watching television when entered the room Saturating well on room air Ascites Fluid overloaded state Abdomen is soft no signs of peritonitis EOMI, PERRLA Nonfocal neuro exam Abdomen is soft nontender to deep palpation Bowel sounds hyperactive Patient endorsing passing flatus S1, S2 Urinary Catheter Management: Meyer: Cath Placed During This Visit: yes Urinary Catheter Date of Insertion: 06/16/21 Urinary Catheter Time of Insertion: 12:41 Data : 06/18/21 05:17 06/18/21 05:17 Micro: Microbiology 06/17/21 15:15 C.difficile Toxin B Gene (PCR) - Final Stool Routine Collection 06/17/21 15:15 Occult Blood (FIT) - Final Stool Routine Collection 06/16/21 12:25 Urine Culture - Preliminary Urine,Clean Catch 06/16/21 12:32 Blood Culture - Preliminary Blood NEGATIVE TO DATE 06/16/21 12:33 Blood Culture - Preliminary Blood NEGATIVE TO DATE A&P Assessment and plan (1) SBO (small bowel obstruction): Status: Acute (2) Colitis: Status: Acute (3) C. difficile colitis: Status: Acute (4) Acute on chronic blood loss anemia: Status: Acute (5) GI bleeding: Status: Acute (6) AVM (arteriovenous malformation): Status: Acute (7) Diabetes mellitus type 2 in nonobese: Status: Acute (8) LLOYD (nonalcoholic steatohepatitis): Status: Acute (9) Tense ascites: Status: Acute Plan C. difficile positive, started p.o. vancomycin yesterday FOBT positive, received 1 unit PRBC, as per the son she had EGD and colonoscopy, no active bleeding ulcers were found, consideration was given to AV malformation, she has portal hypertension She has remained hemodynamically stable Discontinued antibiotics yesterday Abdomen is soft, no active emesis, advance diet today I would like to watch her here 1 more day and discharge her back to the facility over the weekend We will update her son She is full code Lloyd: Liver cirrhosis no acute decompensation No signs of SBP or encephalopathy Attestations Medical Necessity Statement*: Discharge over the weekend Time Spent in Patient Care: 20 Coding Level of Care Code Acute Utilities Operator for [facility] Fwd Diagnoses SBO (small bowel obstruction) K56.609 Colitis K52.9 C. difficile colitis A04.72 Acute on chronic blood loss anemia D62 GI bleeding K92.2 AVM (arteriovenous malformation) Q27.30 Diabetes mellitus type 2 in nonobese E11.9 LLOYD (nonalcoholic steatohepatitis) K75.81 Tense ascites R18.8
[2021-06-18 11:12] LABS: Glucose Point of Care 154 mg/dL (70-110)
[2021-06-18] MEDS: oxyCODONE 5 mg IR Tab/Cap PO (15:20)
[2021-06-18 17:07] LABS: Glucose Point of Care 201 mg/dL (70-110)
[2021-06-18] MEDS: pantoprazole DR 40 mg Tablet PO (18:23)
[2021-06-18] MEDS: mirtazapine 15 mg Tablet 7.5 MG PO (21:35)
[2021-06-18 22:01] LABS: Glucose Point of Care 166 mg/dL (70-110)
[2021-06-19 03:41] VITALS: BP 148/73; PULSE 83; RESP 20; TEMP 36.7; O2SAT 93
[2021-06-19 04:53] LABS: Glucose Point of Care 142 mg/dL (70-110)
[2021-06-19 05:03] VITALS: RESP 20; O2SAT 93
[2021-06-19] MEDS: oxyCODONE 5 mg IR Tab/Cap PO (05:03)
[2021-06-19] MEDS: FUROsemide 20 mg Tablet PO (05:03)
[2021-06-19 05:40] LABS: Basophils % 1.1 %; Eosinophils # 0.1 10^3/uL (0.0-0.8); Eosinophils % 4.5 %; Hematocrit 31.9 % (37.0-47.0); Hemoglobin 9.1 g/dL (11.5-15.3); Lymphocytes # 0.9 10^3/uL (0.8-4.8); Lymphocytes % 34.6 %; Mean Corpuscular HGB Conc 28.5 g/dL (30.0-36.0); Mean Corpuscular Hemoglobin 24.7 pg (28.0-34.0); Mean Corpuscular Volume 86.4 fl (81-99); Mean Platelet Volume 9.4 fL (7.4-10.4); Monocytes # 0.4 10^3/uL (0.2-0.9); Monocytes % 15.8 %; Neutrophils # 1.16 10^3/uL (1.8-7.7); Neutrophils % 43.6 %; Nucleated Red Blood Cells % 0 %; Platelet Count 112 10^3/cmm (130-400); Red Blood Count 3.69 10^6/uL (4.1-5.3); Red Cell Distribution Width 16.8 % (12.1-15.1); White Blood Count 2.7 10^3/uL (4.0-10.0)
[2021-06-19 06:14] LABS: Anion Gap 13.7 (5-19); Blood Urea Nitrogen 15 mg/dL (8-23); Calcium 8.1 mg/dL (8.5-10.5); Carbon Dioxide 19 mmol/L (22-29); Chloride 102 mmol/L (98-107); Glucose 132 mg/dL (65-115); Osmolality Calculated 275 mOsm/kg (285-295); Potassium 3.7 mmol/L (3.5-5.1); Sodium 131 mmol/L (136-145)
[2021-06-19 07:59] VITALS: BP 138/69; PULSE 82; RESP 16; TEMP 36.7; O2SAT 93
[2021-06-19] MEDS: insulin glargine 100 units/1 mL 10 UNIT SUBCUT (08:35)
[2021-06-19] MEDS: pantoprazole DR 40 mg Tablet PO (08:36)
--- NOTE | 2021-06-19 09:11 | PC.SOCIAL ---
IMM update IMM updated with patient. Copy Pg 2 provided. Initialled, dated, timed, and placed in chart.
--- NOTE | 2021-06-19 09:12 | P.DS_ITS ---
Discharge Providers Date of Admission: 06/16/21 15:15 Date of Discharge: June 19, 2021 Attending Provider at Admission: Maritza Fitzpatrick MD Attending Provider at Discharge: Maritza Fitzpatrick MD Primary Care Provider: Jeff Wick DO Diagnoses at Discharge Discharge Diagnosis (1) SBO (small bowel obstruction): Status: Acute (2) Colitis: Status: Acute (3) C. 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 She was diagnosed with partial SBO at the time of admission, NG tube was placed which revealed 250 cc of bilious content which improved her symptoms. Her NG tube was clamped and removed the next day. She tolerated clear liquid diet which was advanced to consistent carb. She did not experience recurrent episodes of nausea and vomiting. She remained afebrile. Abdomen remains soft, no signs of peritonitis. C. difficile panel positive, she was started on p.o. vancomycin on 06/18. She has been having 1-2 bowel movements a day. Tolerating her diet. Remains afebrile. No signs of kidney injury. No leukocytosis. She will be discharged back to [facility] on p.o. vancomycin 10-day regimen. Son was updated on daily basis. She also received 1 unit PRBC along the bag of albumin however decision was made not to pursue EGD and colonoscopy after discussing with her son. Son is stating that she had EGD and colonoscopy which did not reveal active bleeding ulcers and there was consideration given to AV malformation. He decided against endoscopy during this visit. After her blood transfusion she remained hemodynamically stable. She did not exhibit signs of hepatic encephalopathy. High risk for readmissions, might benefit from TIPS procedure for recurrent ascites, considering C. difficile I would not give her lactulose. Aspirin discontinued. Ammonia level 51 Physical Exam Narrative: Very pleasant cooperative female Ascites positive No signs of hepatic encephalopathy S1, S2 Clinical signs of euvolemia Doing well on room air Very pleasant cooperative, uses hearing aids Edema of legs noted Meyer catheter will be removed before discharge Her abdomen is nontender no signs of peritonitis, Urinary Catheter Management: Meyer: Cath Placed During This Visit: yes Urinary Catheter Date of Insertion: 06/16/21 Urinary Catheter Time of Insertion: 12:41 Discharge Data Studies Completed and Pending Completed Studies During Hospitalization Category Date Time Status CT abdomen pelvis w con* [id number] Stat Cat Scan 06/16/21 12:22 Completed XR KUB portable [id number] Routine Exams 06/17/21 07:00 Completed XR chest 1V portable [id number] Stat Exams 06/16/21 11:57 Completed Pending at discharge Category Date Time Status Blood Culture Stat Lab 06/16/21 12:32 Results Radiology Impressions Chest X-Ray 06/16/21 11:57 IMPRESSION: Bibasilar subsegmental atelectasis. Abdomen/Pelvis CT 06/16/21 12:22 IMPRESSION: 1. Cirrhotic liver with splenomegaly and portal venous hypertension. 2. Fluid distended loops of thickened and enhancing small bowel in the midabdomen suspicious for small bowel enteritis. Distal ileum is decompressed. Early small bowel obstruction also an additional consideration. 3. Similar-appearing mucosal enhancement involving the RIGHT colon and transverse colon suspicious for infectious or inflammatory colitis. 4. Distended stomach with air-fluid level. 5. Scattered abdominal and pelvic ascites unchanged from May 31, 2021. 6. Meyer catheter. 7. Small bilateral pleural effusions with compressive atelectasis in the lung bases slightly progressed compared to previous. 8. Diffuse body wall anasarca. 9. Small previously described fluid collections over the RIGHT pubic rami and RIGHT hip improved and essentially resolved. Notified Ramone Cortez DO at 06/16/2021 1:40 PM. KUB X-Ray 06/17/21 07:00 Impression: 1. Nasogastric tube in the stomach but has doubled back on itself. 2. Mid abdominal small bowel distention most consistent with severe ileus or early small bowel obstruction. 3. Large amount of fluid in the abdomen. 4. Old right pelvic fracture repair. Laboratory Results WBC 2.7 10^3/uL (4.0-10.0) L 06/19/21 04:32 RBC 3.69 10^6/uL (4.1-5.3) L 06/19/21 04:32 Hgb 9.1 g/dL (11.5-15.3) L 06/19/21 04:32 Hct 31.9 % (37.0-47.0) L 06/19/21 04:32 MCV 86.4 fl (81-99) 06/19/21 04:32 MCH 24.7 pg (28.0-34.0) L 06/19/21 04:32 MCHC 28.5 g/dL (30.0-36.0) L 06/19/21 04:32 RDW 16.8 % (12.1-15.1) H 06/19/21 04:32 Plt Count 112 10^3/cmm (130-400) L 06/19/21 04:32 MPV 9.4 fL (7.4-10.4) 06/19/21 04:32 Neut % (Auto) 43.6 % 06/19/21 04:32 Lymph % (Auto) 34.6 % 06/19/21 04:32 Clay % (Auto) 15.8 % 06/19/21 04:32 Eos % (Auto) 4.5 % 06/19/21 04:32 Baso % (Auto) 1.1 % 06/19/21 04:32 Neut # (Auto) 1.16 10^3/uL (1.8-7.7) L 06/19/21 04:32 Lymph # (Auto) 0.9 10^3/uL (0.8-4.8) 06/19/21 04:32 Clay # (Auto) 0.4 10^3/uL (0.2-0.9) 06/19/21 04:32 Eos # (Auto) 0.1 10^3/uL (0.0-0.8) 06/19/21 04:32 Baso # (Auto) 0.0 10^3/uL (0.0-0.1) 06/19/21 04:32 Nucleated RBC % (auto) 0 % 06/19/21 04:32 Nucleated RBCs # 0.0 /100WBC 06/19/21 04:32 Specimen Type Arterial 06/16/21 12:05 Sample Site Brachial, right 06/16/21 12:05 ABG pH 7.50 (7.35-7.45) H 06/16/21 12:05 ABG pCO2 27.1 mmHg (35-45) L 06/16/21 12:05 ABG pO2 62.7 mmHg (80.0-100.0) L 06/16/21 12:05 ABG HCO3 21.3 mmol/L (22-26) L 06/16/21 12:05 ABG O2 Saturation 93.9 06/16/21 12:05 ABG Base Excess -1.0 mmol/L (-2.0-2.0) 06/16/21 12:05 Laurent Test N/a 06/16/21 12:05 A-a O2 Gradient 6.6 mmHg (5-10) 06/16/21 12:05 Hematocrit 30.9 % (37-47) L 06/16/21 12:05 Hgb O2 Saturation 91.2 % (95-100) L 06/16/21 12:05 Carboxyhemoglobin 2.2 %THgb (0.4-20.1) 06/16/21 12:05 Methemoglobin 0.7 % (0.4-1.5) 06/16/21 12:05 Total Hemoglobin 10.1 g/dL (12-16) L 06/16/21 12:05 Sodium 131.0 mmol/L (131-143) 06/16/21 12:05 Potassium 4.5 mmol/L (3.5-5.0) 06/16/21 12:05 Glucose 217.0 mg/dL (70-115) H 06/16/21 12:05 Ionized Calcium 1.0 mmol/L (1.1-1.4) L 06/16/21 12:05 O2 Delivery Device Room air 06/16/21 12:05 Table Cover Folder ID Gd 06/16/21 12:05 Sodium 131 mmol/L (136-145) L 06/19/21 04:32 Potassium 3.7 mmol/L (3.5-5.1) 06/19/21 04:32 Chloride 102 mmol/L (98-107) 06/19/21 04:32 Carbon Dioxide 19 mmol/L (22-29) L 06/19/21 04:32 Anion Gap 13.7 (5-19) 06/19/21 04:32 BUN 15 mg/dL (8-23) 06/19/21 04:32 Creatinine 0.5 mg/dL (0.5-0.9) 06/19/21 04:32 GFR Calculation Not Reportable 06/19/21 04:32 Glucose 132 mg/dL (65-115) H 06/19/21 04:32 POC Glucose 142 mg/dL (70-110) H 06/19/21 04:48 Calculated Osmolality 275 mOsm/kg (285-295) L 06/19/21 04:32 Lactic Acid 2.9 mmol/L (0.5-2.2) H 06/16/21 12:20 Lactic Acid (Sepsis) 1.6 mmol/L (0.5-2.2) 06/16/21 18:17 Calcium 8.1 mg/dL (8.5-10.5) L 06/19/21 04:32 Magnesium 1.8 mg/dL (1.7-2.3) 06/17/21 04:52 Total Bilirubin 0.7 mg/dL (0.15-1.2) 06/17/21 04:52 AST 19 U/L (0-32) 06/17/21 04:52 ALT 6 U/L (0-33) 06/17/21 04:52 Alkaline Phosphatase 147 IU/L (35-105) H 06/17/21 04:52 Ammonia 51 umol/L (11-51) 06/16/21 20:30 Creatine Kinase 25 U/L (26-192) L 06/16/21 12:20 Total Protein 5.6 g/dL (6.6-8.7) L 06/17/21 04:52 Albumin 2.6 g/dL (3.5-5.2) L 06/17/21 04:52 Globulin 3.0 g/dL (1.3-4.6) 06/17/21 04:52 Urine Color Yellow (Yellow) 06/16/21 12:25 Urine Appearance Cloudy (CLEAR) 06/16/21 12:25 Urine pH 5 (5-7) 06/16/21 12:25 Ur Specific [place] 1.025 (1.005-1.030) 06/16/21 12:25 Urine Protein Neg (Negative) 06/16/21 12:25 Urine Glucose (UA) Norm (Normal) 06/16/21 12:25 Urine Ketones Negative (Negative) 06/16/21 12:25 Urine Blood Trace (Negative) H 06/16/21 12:25 Urine Nitrate Negative (Negative) 06/16/21 12:25 Urine Bilirubin 1+ (Negative) H 06/16/21 12:25 Urine Urobilinogen 1 mg/dL (Negative) H 06/16/21 12:25 Ur Leukocyte Esterase 2+ (Negative) H 06/16/21 12:25 Urine RBC 0-4 /hpf (0-2) H 06/16/21 12:25 Urine WBC 25-40 /hpf (0-5) H 06/16/21 12:25 Ur Squamous Epith Cells 5-10 /hpf (0-5) H 06/16/21 12:25 Amorphous Sediment Not Reportable 06/16/21 12:25 Urine Bacteria None /hpf (NONE) 06/16/21 12:25 Urine Mucus 1+ /hpf 06/16/21 12:25 Urine Yeast 1+ /hpf H 06/16/21 12:25 SARS-CoV-2 Ag (Rapid) Negative (Negative) 06/17/21 15:17 Blood Type O Positive 06/17/21 04:52 Rho(D) Type Positive 06/17/21 04:52 Antibody Screen Negative 06/17/21 04:52 Crossmatch See Detail 06/17/21 04:52 Vitals Last Vital Signs Temp 98.0 F 06/19/21 07:59 Pulse 82 06/19/21 07:59 Resp 16 06/19/21 07:59 BP 138/69 06/19/21 07:59 Pulse Ox 93 06/19/21 07:59 Discharge Plan Discharge Patient Disposition: Xfer SNF Condition: Stable Prescriptions: New vancomycin 125 mg capsule 125 mg PO Q6H 10 Days Qty: 40 0RF Continued amlodipine 10 mg tablet 10 mg PO DAILY@08 0RF furosemide 20 mg tablet 20 mg PO QAM 0RF buspirone 5 mg tablet 5 mg PO DAILY 0RF bethanechol chloride 10 mg Tablet See Rx Instructions .ROUTE .COMPLEX 0RF Rx Instructions: 10 mg orally before meals and at bedtime @07:30,12:30,17:30 and 19:30 bisacodyl 10 mg Suppository 10 mg AK DAILY PRN (Reason: Constipation) 0RF Rx Instructions: may give for mom failure or may give tablets ferrous sulfate 325 mg (65 mg iron) Tablet 325 mg PO BID 0RF Fleet Enema 19-7 gram/118 mL Enema 118 ml AK DAILY PRN (Reason: Constipation) 0RF Rx Instructions: may give for bisacodyl failure if no results contact bisacodyl 5 mg Tablet 20 mg PO DAILY PRN (Reason: Constipation) 0RF Rx Instructions: may give for mom failure or may give suppository insulin lispro [Humalog KwikPen Insulin] 100 unit/mL Insulin Pen See Rx Instructions .ROUTE .COMPLEX 0RF Rx Instructions: sliding scale before meals and at bedtime 140-175=2 units 176-200=3 units 201-250=5 units 251-299=7 units 300 plus =9 units sennosides-docusate sodium [Senna-S] 8.6-50 mg Tablet 1 tab-cap PO BID 0RF omeprazole 40 mg Capsule,Delayed Release(Dr/Ec) 40 mg PO BID 0RF polyethylene glycol 3350 17 gram/dose Powder 17 g PO DAILY 0RF oxycodone 5 mg Tablet 5 mg PO Q4H MDD 30mg PRN (Reason: Pain) 0RF mirtazapine 7.5 mg tablet 7.5 mg PO BEDTIME 0RF melatonin 5 mg Tablet 5 mg PO BEDTIME 0RF acetaminophen 500 mg Tablet 1,000 mg PO Q6H PRN (Reason: Pain) 0RF Benadryl 25 mg Capsule 25 mg PO TID 0RF Rx Instructions: for 10 days (end date 06/25/21) Zofran 4 mg Tablet 4 mg PO .ONCE 0RF Milk of Magnesia 400 mg/5 mL Suspension 30 ml PO DAILY PRN (Reason: Constipation) 0RF Lantus Solostar U-100 Insulin 100 unit/mL (3 mL) Insulin Pen 10 unit SUBCUT DAILY@08 0RF Discontinued aspirin 325 mg Tablet,Delayed Release (Dr/Ec) 325 mg PO DAILY@08 0RF Discharge Orders: Discharge Order (Routine); Ordered 06/19/21 Ordered By: Maritza Fitzpatrick Referrals: Jeff Wick DO [Primary Care Provider] - 2 weeks Discharge Diet: Cardiac Discharge Activity: Increase activity as tolerated Discharge Attestations Time Spent in Discharge Care*: less than 30 min Status at Discharge: Cognitive status at discharge: cognitively intact , Behavioral status at discharge: cooperative , Quality Metrics Clinical Quality Measures [ No reported AMI, CVA or VTE this stay] Coding Level of Care Code Acute Chg FW DC note Diagnoses SBO (small bowel obstruction) K56.609 Colitis K52.9 C. difficile colitis A04.72 Acute on chronic blood loss anemia D62 GI bleeding K92.2 AVM (arteriovenous malformation) Q27.30 Diabetes mellitus type 2 in nonobese E11.9 MENARD (nonalcoholic steatohepatitis) K75.81 Tense ascites R18.8
--- NOTE | 2021-06-19 10:07 | PC.NURSE ---
Report called to Lisa at [facility].
--- NOTE | 2021-06-19 10:49 | PC.NURSE ---
pt transported out of facility via EMS.
[2021-06-19 10:50] VITALS: BP 138/69; PULSE 82; RESP 16; TEMP 36.7; O2SAT 93
== END 2021-06-19 10:50 | disposition skilled nursing facility (03) | DRG 389 ==
LOC: ER 12:33 → MEDSURG 17:14
PROVIDERS: Admitting Provider Internal Medicine; Emergency Provider Family Medicine; PCP Family Medicine; Visit Provider Internal Medicine
DX: K56.600 Partial intestinal obstruction, unspecified as to cause (principal); A04.72 Enterocolitis due to Clostridium difficile, not specified as recurrent; D62 Acute posthemorrhagic anemia; Q27.30 Arteriovenous malformation, site unspecified; R18.8 Other ascites; K92.2 Gastrointestinal hemorrhage, unspecified; E11.9 Type 2 diabetes mellitus without complications; K75.81 Nonalcoholic steatohepatitis (NASH); Z79.4 Long term (current) use of insulin; Z79.82 Long term (current) use of aspirin; E83.51 Hypocalcemia; I10 Essential (primary) hypertension
CPT/HCPCS: 36415; 36416; 36430; 36600; 51702; 71045; 74018; 74177; 80048; 80051; 80053; 81001; 82140; 82274; 82330; 82550; 82805; 82962; 83605; 83735; 85025; 86850; 86900; 86920; 87040; 87086; 87426; 87493; 87506; 96365; 96367; 96375; 99285; J0610; J1815; J2270; J2405; J2543; J3370; J7030; P9016; P9041; Q9967

== ENCOUNTER 2021-06-28 14:53 | Observation (INO) | payer MEDICARE, SELFPAY ==
--- NOTE | 2021-06-28 14:54 | CTR_ITS ---
PROCEDURE INFORMATION: Exam: CT Abdomen And Pelvis Without Contrast Exam date and time: 06/28/2021 3:41 PM Age: 75 years old Clinical indication: Other: Abd distention; Prior surgery; Surgery type: Appy, gb, RT hip, hyst; Additional info: Abd distension TECHNIQUE: Imaging protocol: Computed tomography of the abdomen and pelvis without contrast. Radiation optimization: All CT scans at this facility use at least one of these dose optimization techniques: automated exposure control; mA and/or kV adjustment per patient size (includes targeted exams where dose is matched to clinical indication); or iterative reconstruction. COMPARISON: CT abdomen pelvis w con* [id number] 06/16/2021 1:05 PM RADIATION DOSE METRICS: Total DLP (mGy-cm): 1434.87 FINDINGS: Pleural spaces: Moderate volume bilateral pleural effusions at the lung bases. Liver: Cirrhotic liver. Gallbladder and bile ducts: Cholecystectomy. Pancreas: Atrophic. No ductal dilation. Spleen: Splenomegaly measuring up to 17 cm in length. Adrenal glands: Normal. No mass. Kidneys and ureters: No stones. No hydronephrosis. Stomach and bowel: Unremarkable. No obstruction. No mucosal thickening. Appendix: No evidence of appendicitis. Intraperitoneal space: Moderate volume abdominal/pelvic ascites. No free air. No significant fluid collection. Vasculature: No abdominal aortic aneurysm. Prominent upper abdominal varices. Lymph nodes: No enlarged lymph nodes. Urinary bladder: Unremarkable as visualized. Reproductive: Hysterectomy. Bones/joints: No acute fracture. Metallic plates and screws seen along the right hemipelvis including the iliac crest and pubic rami. Soft tissues: Moderate anasarca. CT/CT abdomen pelvis con [id number] IMPRESSION: Cirrhotic liver with sequela of portal hypertension including prominent upper abdominal varices, moderate volume abdominal/pelvic ascites, and splenomegaly. Additional moderate anasarca and moderate volume bilateral pleural effusions.
--- NOTE | 2021-06-28 15:07 | ED_ITS ---
HPI - General Adult General: Chief complaint: Abdominal Pain Stated complaint: ABDOMINAL DISTENTION Time Seen by Provider: 06/28/21 14:53 History of Present Illness: Patient is a 75-year-old female with a history of cirrhosis complicated by abdominal distention requiring paracentesis, colonic AV malformation s/p multiple colonoscopy, GI bleeding presented to the emergency room with worsening abdominal distention since 06/10/2021. Patient had 3.6 L of fluid removed from the abdomen at that time. Since then, patient has noticed that her abdomen has become increasingly more swollen. Patient denies any nausea/vomiting, fever/chills, diarrhea, melena/hematochezia. Patient also d enies any hematemesis or active bleeding. Onset: chronic x 3 weeks Duration:3 weeks Location: home Severity:severe Associated symptoms: Deny chest pain, dyspnea, nausea, rash, palpitations or vomiting Review of Systems Const: Denies: fever(s) or chills Eyes: Denies: change in vision ENMT: Denies: mouth pain Card: Denies: chest pain or palpitations Resp: Denies: dyspnea or non-productive cough GI: Reports: other (+abdominal distension); Denies: abdominal pain, nausea, vomiting or diarrhea : Denies: dysuria Musc: Denies: extremity pain Skin/Breast: Denies: rash or new lesions Neuro: Denies: weakness in extremities Psych: Reports: other (Normal mood) Tej/Lymph: Denies: easy bruising PFSH ED PFSH: Medical History Abdominal pain Abnormal colonoscopy Acute on chronic blood loss anemia Anemia Anemia AVM (arteriovenous malformation) 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 Colonoscopy showed multiple AVMs in the ascending and proximal transverse colon which were cauterized. Extensive diverticulosis with internal and external hemorrhoids were noted. GI bleeding LLOYD (nonalcoholic steatohepatitis) LLOYD (nonalcoholic steatohepatitis) Portal hypertension EGD esophageal banding on 03/25/16 she has been transfused multiple times, Tense ascites Type 2 diabetes mellitus Surgical History S/P endoscopy Family History Other Family history non-contributory Social History Smoking and tobacco status: never smoked Alcohol intake: never Housing: House Physical Exam Const: COMMON NORMALS: alert HENMT: COMMON NORMALS: atraumatic HEAD & SCALP: atraumatic MOUTH: moist mucous membranes not abnormal Eye: COMMON NORMALS: EOMs intact bilaterally and conjunctivae normal CONJUNCTIVA: Yes conjunctivae normal Neck/C-Spine: COMMON NORMALS: full ROM and supple Resp: COMMON NORMALS: normal respiratory effort and clear to auscultation bilaterally AUSCULTATION: clear to auscultation bilaterally Cardio: COMMON NORMALS: regular rate RATE: regular rate GI: COMMON NORMALS: Soft to palpation and non-tender PALPATION: Yes Soft to palpation OTHER: +abdominal distension. No focal TTP. NO guarding rebound, guarding, rigidity. No CVA tenderness to percussion. Neg Palomares/Neg McBurney's point tenderness, no suprabupic tenderness to palpation. Extremity: COMMON NORMALS: full ROM Neuro: SENSORIUM/ORIENTATION: Yes alert MOTOR EXAM: No Abnormal motor strength present and Other motor observations present (no focal motor deficits) Psych: COMMON NORMALS: speech normal SPEECH: Yes normal speech MOOD & AFFECT: Yes euthymic mood Course Vital Signs: Vital signs: Vital Signs Temperature 98.3 F 06/28/21 15:20 Pulse Rate 87 06/28/21 15:49 Respiratory Rate 16 06/28/21 15:49 Blood Pressure 122/74 06/28/21 15:49 Pulse Oximetry 94 06/28/21 15:[address] [facility] - General Adult Medical Decision Making 75-year-old female with history of cirrhosis complicated abdominal distention requiring paracentesis, colonic AVM presenting to the emergency room with worsening abdominal distention since 06/10/2021 after paracentesis. On exam, patient is noted to have abdominal distention, no focal tenderness palpation. Do not suspect SBP or other acute intra-abdominal processes. Given abdominal distention and prior history of partial bowel/complete bowel obstruction, decision was made to order CT scan today. CT did not show any signs of small bowel torsion or other acute intra-abdominal pathologies. Patient will be admitted to the hospital for moderate ascites requiring paracentesis Disposition: admission Lab Data : 06/28/21 15:55 06/28/21 15:55 Radiology Impressions Abdomen/Pelvis CT 06/28/21 14:54 IMPRESSION: Cirrhotic liver with sequela of portal hypertension including prominent upper abdominal varices, moderate volume abdominal/pelvic ascites, and splenomegaly. Additional moderate anasarca and moderate volume bilateral pleural effusions. Laboratory Results WBC 5.0 10^3/uL (4.0-10.0) 06/28/21 15:55 RBC 4.52 10^6/uL (4.1-5.3) 06/28/21 15:55 Hgb 11.2 g/dL (11.5-15.3) L 06/28/21 15:55 Hct 37.6 % (37.0-47.0) 06/28/21 15:55 MCV 83.2 fl (81-99) 06/28/21 15:55 MCH 24.8 pg (28.0-34.0) L 06/28/21 15:55 MCHC 29.8 g/dL (30.0-36.0) L 06/28/21 15:55 RDW 16.1 % (12.1-15.1) H 06/28/21 15:55 Plt Count 213 10^3/cmm (130-400) 06/28/21 15:55 MPV 9.3 fL (7.4-10.4) 06/28/21 15:55 Neut % (Auto) 67.3 % 06/28/21 15:55 Lymph % (Auto) 19.3 % 06/28/21 15:55 Edmunds % (Auto) 11.4 % 06/28/21 15:55 Eos % (Auto) 1.0 % 06/28/21 15:55 Baso % (Auto) 0.8 % 06/28/21 15:55 Neut # (Auto) 3.38 10^3/uL (1.8-7.7) 06/28/21 15:55 Lymph # (Auto) 1.0 10^3/uL (0.8-4.8) 06/28/21 15:55 Edmunds # (Auto) 0.6 10^3/uL (0.2-0.9) 06/28/21 15:55 Eos # (Auto) 0.1 10^3/uL (0.0-0.8) 06/28/21 15:55 Baso # (Auto) 0.0 10^3/uL (0.0-0.1) 06/28/21 15:55 Nucleated RBC % (auto) 0 % 06/28/21 15:55 Nucleated RBCs # 0.0 /100WBC 06/28/21 15:55 PT 15.20 SECONDS (12.1-14.9) H 06/28/21 15:55 INR 1.17 (0.8-1.2) 06/28/21 15:55 APTT 29.3 SECONDS (23.9-36.7) 06/28/21 15:55 Sodium 127 mmol/L (136-145) L 06/28/21 15:55 Potassium 4.1 mmol/L (3.5-5.1) 06/28/21 15:55 Chloride 95 mmol/L (98-107) L 06/28/21 15:55 Carbon Dioxide 23 mmol/L (22-29) 06/28/21 15:55 Anion Gap 13.1 (5-19) 06/28/21 15:55 BUN 11 mg/dL (8-23) 06/28/21 15:55 Creatinine 0.6 mg/dL (0.5-0.9) 06/28/21 15:55 GFR Calculation Not Reportable 06/28/21 15:55 Glucose 162 mg/dL (65-115) H 06/28/21 15:55 Calculated Osmolality 267 mOsm/kg (285-295) L 06/28/21 15:55 Calcium 8.4 mg/dL (8.5-10.5) L 06/28/21 15:55 Total Bilirubin 0.6 mg/dL (0.15-1.2) 06/28/21 15:55 AST 33 U/L (0-32) H 06/28/21 15:55 ALT 13 U/L (0-33) 06/28/21 15:55 Alkaline Phosphatase 199 IU/L (35-105) H 06/28/21 15:55 Total Protein 7.0 g/dL (6.6-8.7) 06/28/21 15:55 Albumin 2.8 g/dL (3.5-5.2) L 06/28/21 15:55 Globulin 4.2 g/dL (1.3-4.6) 06/28/21 15:55 Lipase 39 U/L (13-60) 06/28/21 15:55 Imaging Data Other Imaging: Radiologist's impression: [facility] [address] [address] Scan Report Signed Patient: Martha Moore Unit #: [id number] : 1945 Age/Sex: 75 / F ADM Date: 06/28/21 Loc: ER Room/Bed: Attending Dr: Ordering Provider/Ordering MD: Reynold Parnell MD Date of Service: 06/28/21 Procedure(s): CT abdomen pelvis wo con [id number] Accession Number(s): [id number] Report Number: [id number] PROCEDURE INFORMATION: Exam: CT Abdomen And Pelvis Without Contrast Exam date and time: 06/28/2021 3:41 PM Age: 75 years old Clinical indication: Other: Abd distention; Prior surgery; Surgery type: Appy, gb, RT hip, hyst; Additional info: Abd distension TECHNIQUE: Imaging protocol: Computed tomography of the abdomen and pelvis without contrast. Radiation optimization: All CT scans at this facility use at least one of these dose optimization techniques: automated exposure control; mA and/or kV adjustment per patient size (includes targeted exams where dose is matched to clinical indication); or iterative reconstruction. COMPARISON: CT abdomen pelvis w con* [id number] 06/16/2021 1:05 PM RADIATION DOSE METRICS: Total DLP (mGy-cm): 1434.87 FINDINGS: Pleural spaces: Moderate volume bilateral pleural effusions at the lung bases. Liver: Cirrhotic liver. Gallbladder and bile ducts: Cholecystectomy. Pancreas: Atrophic. No ductal dilation. Spleen: Splenomegaly measuring up to 17 cm in length. Adrenal glands: Normal. No mass. Kidneys and ureters: No stones. No hydronephrosis. Stomach and bowel: Unremarkable. No obstruction. No mucosal thickening. Appendix: No evidence of appendicitis. Intraperitoneal space: Moderate volume abdominal/pelvic ascites. No free air. No significant fluid collection. Vasculature: No abdominal aortic aneurysm. Prominent upper abdominal varices. Lymph nodes: No enlarged lymph nodes. Urinary bladder: Unremarkable as visualized. Reproductive: Hysterectomy. Bones/joints: No acute fracture. Metallic plates and screws seen along the right hemipelvis including the iliac crest and pubic rami. Soft tissues: Moderate anasarca. CT/CT abdomen pelvis wo con [id number] IMPRESSION: Cirrhotic liver with sequela of portal hypertension including prominent upper abdominal varices, moderate volume abdominal/pelvic ascites, and splenomegaly. Additional moderate anasarca and moderate volume bilateral pleural effusions. ? Dictated By: Adonis Forte DO Signed By: Adonis Forte DO Signed Date/Time: 06/28/21 1607 DD/ 1541 Discharge Plan Discharge Patient Disposition: Admitted As Inpatient Clinical Impression: Abdominal distension, Abdominal ascites Condition: Stable Coding Level of Care Code ED Graduate Teacher Education for Chg Fwd Exam Comprehensive
[2021-06-28 15:20] VITALS: BP 122/74; PULSE 88; RESP 16; TEMP 36.8; O2SAT 95; BMI 24.9
--- NOTE | 2021-06-28 15:29 | PC.NURSE ---
notified dr. mathur of pt statement stating, i'm okay if i and agreed when asked if she could go to sleep and not wake up that that's what she wanted. pt denies any active plan or attempt to hurt herself. dr. mathur verbalized understanding by stating, ok .
[2021-06-28 15:49] VITALS: BP 122/74; PULSE 87; RESP 16; O2SAT 94
[2021-06-28] MEDS: sodium chloride 0.9% 500 ML IV (15:58)
[2021-06-28 16:23] LABS: Basophils % 0.8 %; Eosinophils # 0.1 10^3/uL (0.0-0.8); Hematocrit 37.6 % (37.0-47.0); Hemoglobin 11.2 g/dL (11.5-15.3); Lymphocytes % 19.3 %; Mean Corpuscular HGB Conc 29.8 g/dL (30.0-36.0); Mean Corpuscular Hemoglobin 24.8 pg (28.0-34.0); Mean Corpuscular Volume 83.2 fl (81-99); Mean Platelet Volume 9.3 fL (7.4-10.4); Monocytes # 0.6 10^3/uL (0.2-0.9); Monocytes % 11.4 %; Neutrophils # 3.38 10^3/uL (1.8-7.7); Neutrophils % 67.3 %; Nucleated Red Blood Cells % 0 %; Platelet Count 213 10^3/cmm (130-400); Red Blood Count 4.52 10^6/uL (4.1-5.3); Red Cell Distribution Width 16.1 % (12.1-15.1)
[2021-06-28 16:41] LABS: Alanine Aminotransferase 13 U/L (0-33); Albumin Level 2.8 g/dL (3.5-5.2); Alkaline Phosphatase 199 IU/L (35-105); Anion Gap 13.1 (5-19); Aspartate Amino Transferase 33 U/L (0-32); Blood Urea Nitrogen 11 mg/dL (8-23); Calcium 8.4 mg/dL (8.5-10.5); Carbon Dioxide 23 mmol/L (22-29); Chloride 95 mmol/L (98-107); Globulin 4.2 g/dL (1.3-4.6); Glucose 162 mg/dL (65-115); Lipase 39 U/L (13-60); Osmolality Calculated 267 mOsm/kg (285-295); Potassium 4.1 mmol/L (3.5-5.1); Sodium 127 mmol/L (136-145); Total Bilirubin 0.6 mg/dL (0.15-1.2)
[2021-06-28 17:18] LABS: INR 1.17 (0.8-1.2); Partial Thromboplastin Time 29.3 SECONDS (23.9-36.7)
[2021-06-28 18:09] VITALS: BP 126/67; PULSE 80; RESP 18; O2SAT 93
[2021-06-28 18:17] VITALS: PULSE 80; RESP 18; O2SAT 93
--- NOTE | 2021-06-28 18:22 | PM.HP ---
Providers/Chief Complaint Admitting Physician: Maritza Fitzpatrick MD Primary Care Provider: Jeff Wick DO Chief Complaint: ABDOMINAL DISTENTION History of Present Illness Martha Moore is a 75 year old female who was recently discharged from the hospital after management of partial bowel obstruction which was managed conservatively, she has history of Menard, liver cirrhosis, recurrent ascites, presented to the hospital for worsening of abdominal bloating. Patient is stating that she is here in the hospital because of discomfort and abdominal bloating. She is not describing any fever, active bleeding, shortness of breath, endorsing chest discomfort related to abdominal bloating. No active abdominal excruciating pain. No active vomiting. She is currently being admitted for therapeutic paracentesis, I will start albumin, will let her eat we will make her n.p.o. after midnight for paracentesis Hypervolemic hyponatremia Review of Systems Const: Reports: body aches and fatigue; Denies: chills Eyes: Denies: change in vision ENMT: Denies: throat pain Card: Reports: chest pain Resp: Denies: dyspnea GI: Reports: bloating; Denies: abdominal pain, nausea or vomiting : Denies: flank pain Musc: Denies: neck pain Skin/Breast: Reports: lesions Psych: Denies: anxiety Endo: Denies: polyuria Tej/Lymph: Denies: easy bruising All/Imm: Denies: urticaria Medications/Allergies Home Medications Medication Instructions Recorded Confirmed Last Taken Type furosemide 20 mg tablet 20 mg PO QAM 04/07/21 06/28/21 06/28/21 08:00 History bethanechol chloride 10 mg tablet See Rx Instructions .ROUTE .COMPLEX 06/11/21 06/28/21 06/28/21 11:30 History bisacodyl 10 mg rectal suppository 10 mg NH DAILY PRN 06/11/21 06/28/21 Unknown History bisacodyl 5 mg tablet 20 mg PO DAILY PRN 06/11/21 06/28/21 Unknown History buspirone 5 mg tablet 5 mg PO DAILY 06/11/21 06/28/21 06/28/21 08:00 History ferrous sulfate 325 mg (65 mg 325 mg PO BID 06/11/21 06/28/21 06/28/21 08:00 History iron) tablet insulin lispro 100 unit/mL See Rx Instructions .ROUTE .COMPLEX 06/11/21 06/28/21 06/28/21 12:30 History subcutaneous pen (Humalog KwikPen (U-100) Insulin) melatonin 5 mg tablet 5 mg PO BEDTIME 06/11/21 06/28/21 06/27/21 History mirtazapine 7.5 mg tablet 7.5 mg PO BEDTIME 06/11/21 06/28/21 06/27/21 History oxycodone 5 mg tablet 5 mg PO Q4H PRN MDD 30mg 06/11/21 06/28/21 06/28/21 12:46 History polyethylene glycol 3350 17 17 g PO DAILY 06/11/21 06/28/21 06/28/21 08:00 History gram/dose oral powder sennosides 8.6 mg-docusate sodium 1 tab-cap PO BID 06/11/21 06/28/21 06/28/21 08:00 History 50 mg tablet (Senna-S) sodium phosphates 19 gram-7 118 ml NH DAILY PRN 06/11/21 06/28/21 Unknown History gram/118 mL enema (Fleet Enema) acetaminophen 500 mg tablet 1,000 mg PO Q6H PRN 06/16/21 06/28/21 Unknown History insulin glargine 100 unit/mL (3 10 unit SUBCUT DAILY@08 06/16/21 06/28/21 06/28/21 08:00 History mL) subcutaneous pen (Lantus Solostar U-100 Insulin) magnesium hydroxide 400 mg/5 mL 30 ml PO DAILY PRN 06/16/21 06/28/21 Unknown History oral suspension (Milk of Magnesia) vancomycin 125 mg capsule 125 mg PO Q6H 10 Days #40 cap 06/19/21 06/28/21 06/28/21 12:00 Rx amlodipine 10 mg tablet 10 mg PO DAILY@08 #90 tab 06/21/21 06/28/21 06/28/21 08:00 Rx omeprazole 40 mg capsule,delayed 40 mg PO BID #180 cap 06/21/21 06/28/21 06/28/21 08:00 Rx release Saccharomyces boulardii 250 mg 250 mg PO BID 06/28/21 06/28/21 06/28/21 08:00 History capsule (Florastor) nitroglycerin 0.4 mg sublingual 0.4 mg SUBLINGUAL Q5M PRN 06/28/21 06/28/21 Unknown History tablet (Nitrostat) Allergies Allergy/AdvReac Type Severity Reaction Status Date / Time aspirin Allergy Intermediate rash Verified 06/28/21 15:37 atropine Allergy Intermediate unknown Verified 06/28/21 15:37 ciprofloxacin Allergy ALGY-Rash Verified 06/28/21 15:37 hydrocodone Allergy Unknown Verified 06/28/21 15:37 iodine Allergy ALGY-Hives Verified 06/28/21 15:37 meperidine [From Demerol] Allergy ADR-Nausea Verified 06/28/21 15:37 Sulfa (Sulfonamide Allergy ALGY-Rash Verified 06/28/21 15:37 Antibiotics) PFSH Acute PFSH: Medical History Abdominal pain Abnormal colonoscopy Acute on chronic blood loss anemia Anemia Anemia AVM (arteriovenous malformation) 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 Colonoscopy showed multiple AVMs in the ascending and proximal transverse colon which were cauterized. Extensive diverticulosis with internal and external hemorrhoids were noted. GI bleeding MENARD (nonalcoholic steatohepatitis) MENARD (nonalcoholic steatohepatitis) Portal hypertension EGD esophageal banding on 03/25/16 she has been transfused multiple times, Tense ascites Type 2 diabetes mellitus Surgical History S/P endoscopy Family History Other Family history non-contributory Social History Smoking and tobacco status: never smoked Alcohol intake: never Housing: House Vitals/I&O/Wt Last Vital Signs Temp 98.3 F 06/28/21 15:20 Pulse 80 06/28/21 18:17 Resp 18 06/28/21 18:17 BP 126/67 06/28/21 18:09 Pulse Ox 93 06/28/21 18:17 Weight last 48 hrs Weight 65.771 kg Physical Exam Narrative: Pleasant female Awake and alert No active signs of encephalopathy Asterixis negative Bloated Anasarca Bilateral extremity swelling 3+ pitting edema Nontender abdomen Ascites Awake and alert Nonfocal neuro exam S1, S2 No audible stridor or wheezing Saturating well on room air Data : 06/28/21 15:55 06/28/21 15:55 A&P Assessment and plan (1) Abdominal distension: Status: Acute (2) Abdominal ascites: Status: Acute Plan Recurrent ascites We will request therapeutic paracentesis Start albumin No signs of SBP She is afebrile no abdominal pain We will request IR for drainage We will keep her n.p.o. after midnight No active signs of hepatic encephalopathy She does not show active signs of decompensated liver cirrhosis She has had GI bleed in the past, required blood transfusion for AV malformation Recovering C. difficile diarrhea: She was started on p.o. vancomycin on last admission, 10 days finished I would not continue at this point Consistent carb diet N.p.o. after midnight DVT prophylaxis: SCDs Full code Attestations Medical Necessity Statement*: For paracentesis she will need admission and albumin transfusion, anticipating less than 2 midnights in the hospital Time Spent in Patient Care: 35mins Coding Level of Care Code Acute Ceramics Machine Operator for Chg Fwd Diagnoses Abdominal distension R14.0 Abdominal ascites R18.8
[2021-06-28 19:57] VITALS: BP 133/69; PULSE 84; RESP 18; TEMP 36.8; O2SAT 93
[2021-06-28] MEDS: acetaminophen 500 mg Tablet PO (21:14)
[2021-06-28] MEDS: mirtazapine 15 mg Tablet 7.5 MG PO (21:14)
[2021-06-28 21:27] LABS: Add Urine Microscopic? YES; Bilirubin Urine Neg (Negative); Blood Urine 3+ (Negative); Glucose Urine UA Norm (Normal); Ketones Urine Negative (Negative); Leukocyte Esterase Urine 2+ (Negative); Nitrate Urine Negative (Negative); Protein Urine 1+ (Negative); Urine Appearance Cloudy (CLEAR); Urine Color Yellow (Yellow); Urobilinogen Urine Norm (Negative); pH Urine 5 (5-7)
[2021-06-28 21:31] LABS: Add Urine Culture? Yes; Bacteria Urine 1+ /hpf; RBC Urine 0-4 /hpf (0-2); Squamous Epithelial Cell Urine 0-4 /hpf (0-5); WBC Urine TOO NUMEROUS TO CNT /hpf (0-5)
[2021-06-28 21:34] LABS: Ammonia 59 umol/L (11-51)
[2021-06-28 23:50] VITALS: BP 115/57; PULSE 79; RESP 16; TEMP 37.1; O2SAT 90
[2021-06-29] VITALS (8 sets, daily range): BP systolic 102–131; BP diastolic 53–66; PULSE 80–83; RESP 14–20; TEMP 36.7–37.3; O2SAT 90–92
[2021-06-29] MEDS: oxyCODONE 5 mg IR Tab/Cap PO (00:55)
[2021-06-29 05:05] LABS: Alanine Aminotransferase 8 U/L (0-33); Albumin Level 2.6 g/dL (3.5-5.2); Alkaline Phosphatase 154 IU/L (35-105); Aspartate Amino Transferase 20 U/L (0-32); Blood Urea Nitrogen 10 mg/dL (8-23); Calcium 7.8 mg/dL (8.5-10.5); Carbon Dioxide 22 mmol/L (22-29); Chloride 100 mmol/L (98-107); Globulin 2.6 g/dL (1.3-4.6); Glucose 144 mg/dL (65-115); Magnesium 1.8 mg/dL (1.7-2.3); Osmolality Calculated 274 mOsm/kg (285-295); Sodium 131 mmol/L (136-145); Total Bilirubin 0.4 mg/dL (0.15-1.2); Total Protein 5.2 g/dL (6.6-8.7)
[2021-06-29] MEDS: FUROsemide 20 mg Tablet PO (05:41)
[2021-06-29 06:22] LABS: Basophils % 1.2 %; Eosinophils # 0.1 10^3/uL (0.0-0.8); Eosinophils % 5.6 %; Hematocrit 29.7 % (37.0-47.0); Hemoglobin 8.7 g/dL (11.5-15.3); Lymphocytes # 0.7 10^3/uL (0.8-4.8); Mean Corpuscular HGB Conc 29.3 g/dL (30.0-36.0); Mean Corpuscular Hemoglobin 24.5 pg (28.0-34.0); Mean Corpuscular Volume 83.7 fl (81-99); Monocytes # 0.3 10^3/uL (0.2-0.9); Monocytes % 12.9 %; Neutrophils # 1.32 10^3/uL (1.8-7.7); Neutrophils % 53.3 %; Nucleated Red Blood Cells % 0 %; Platelet Count 126 10^3/cmm (130-400); Red Blood Count 3.55 10^6/uL (4.1-5.3); Red Cell Distribution Width 16.1 % (12.1-15.1); White Blood Count 2.5 10^3/uL (4.0-10.0)
[2021-06-29 06:28] LABS: Glucose Point of Care 129 mg/dL (70-110)
[2021-06-29 10:08] LABS: Body Fluid WBC 220 /uL; RBC, Body Fluid 0 10^3/uL
[2021-06-29] MEDS: pantoprazole DR 40 mg Tablet PO ×2 (10:10→18:04)
[2021-06-29] MEDS: BuSPIRONE 10 mg Tablet 5 MG PO (10:10)
[2021-06-29] MEDS: ferrous sulfate EC 325 mg Tablet PO ×2 (10:11→18:04)
[2021-06-29] MEDS: amlodipine 10 mg Tablet PO (10:11)
[2021-06-29] MEDS: sennosides-docusate Tablet 1 TAB PO ×2 (10:11→18:04)
[2021-06-29 10:35] LABS: Apprearance, Body Fluid CLEAR; Color, Body Fluid PALE YELLOW
[2021-06-29 10:53] LABS: Glucose Point of Care 136 mg/dL (70-110)
[2021-06-29 11:14] LABS: Albumin Body Fluid 0.4 g/dL; LDH Body Fluid 37 U/L; Total Protein Body Fluid 0.8 g/dL
[2021-06-29] MEDS: cefTRIAXone 1,000 MG in sodium chloride 0.9% (plus) 50 ML 100 MG IV (11:20)
[2021-06-29 11:47] LABS: Glucose Point of Care 109 mg/dL (70-110)
--- NOTE | 2021-06-29 11:57 | PM.PN ---
Subjective Subjective: Status post abdominal paracentesis 5200 mL drainage Continue albumin Continue ceftriaxone for UTI Increased dose of Lasix, added spironolactone Vitals/I&O/Wt Last Vital Signs Temp 98.0 F 06/29/21 11:00 Pulse 80 06/29/21 11:00 Resp 16 06/29/21 11:00 BP 110/55 06/29/21 11:00 Pulse Ox 90 06/29/21 11:00 06/28/21 06/29/21 06/29/21 22:59 06:59 14:59 Intake Total 460 / 460 100 / 100 Output Total 100 / 100 300 / 400 Balance 360 / 360 -300 / 60 100 / 100 Weight last 48 hrs Weight 65.771 kg Physical Exam Narrative: Patient is comfortable Nonfocal neuro exam Abdominal distention without tenderness Anasarca S1, S2 Pleasant and cooperative Saturating well on room air Meyer catheter draining yellow urine Urinary Catheter Management: Meyer: Cath Placed During This Visit: yes Reason for Continuing Indwelling Catheter: Other Urinary Catheter Date of Insertion: 06/28/21 Urinary Catheter Time of Insertion: 20:25 Data : 06/29/21 04:15 06/29/21 04:15 A&P Assessment and plan (1) Abdominal distension: Status: Acute (2) Abdominal ascites: Status: Acute Plan Recurrent ascites: Would definitely benefit from TIPS Status post 5200 mL drainage today No active signs of tenderness of abdomen Afebrile UTI: Continue ceftriaxone Plan to discharge back to [facility] tomorrow Attestations Medical Necessity Statement*: Discharge tomorrow Time Spent in Patient Care: 25mins Coding Level of Care Code Acute Learning Engineer for Chg Fwd Diagnoses Abdominal distension R14.0 Abdominal ascites R18.8
[2021-06-29] MEDS: spironolactone 25 mg Tablet 50 MG PO (13:12)
[2021-06-29 17:20] LABS: Glucose Point of Care 172 mg/dL (70-110)
[2021-06-29] MEDS: insulin lispro 100 unit/1 mL SUBCUT (18:04)
--- NOTE | 2021-06-29 19:03 | US_ITS ---
WS: [id number] ULTRASOUND-GUIDED THERAPEUTIC AND DIAGNOSTIC PARACENTESIS Procedure, risks, and complications have been explained to the patient. Consent is obtained. Utilizing aseptic technique and 1% buffered lidocaine, a small dermatome was made through which a 5 F rench Yueh catheter was inserted. Approximately 5200 ml of clear peritoneal fluid was obtained witho ut difficulty. No complications encountered. Peritoneal fluid collected for analysis as requested. US/US paracentesis abd w [id number] IMPRESSION: Uncomplicated paracentesis yielding 5200 ml of peritoneal fluid. Peritoneal fluid specimen collected for analysis as requested.
[2021-06-29] MEDS: mirtazapine 15 mg Tablet 7.5 MG PO (20:53)
[2021-06-29] MEDS: acetaminophen 500 mg Tablet PO (20:58)
[2021-06-29 21:20] LABS: Glucose Point of Care 163 mg/dL (70-110)
[2021-06-30 01:10] VITALS: RESP 17
[2021-06-30] MEDS: oxyCODONE 5 mg IR Tab/Cap PO (01:10)
[2021-06-30 03:00] VITALS: BP 126/56; PULSE 80; RESP 19; TEMP 37; O2SAT 91
[2021-06-30 04:56] LABS: Eosinophils # 0.1 10^3/uL (0.0-0.8); Eosinophils % 3.6 %; Hematocrit 30.3 % (37.0-47.0); Lymphocytes # 0.6 10^3/uL (0.8-4.8); Lymphocytes % 30.9 %; Mean Corpuscular HGB Conc 29.7 g/dL (30.0-36.0); Mean Corpuscular Volume 84.2 fl (81-99); Mean Platelet Volume 9.2 fL (7.4-10.4); Monocytes # 0.2 10^3/uL (0.2-0.9); Monocytes % 12.4 %; Neutrophils # 1.01 10^3/uL (1.8-7.7); Neutrophils % 52.1 %; Nucleated Red Blood Cells % 0 %; Platelet Count 121 10^3/cmm (130-400); Red Cell Distribution Width 16.1 % (12.1-15.1); White Blood Count 1.9 10^3/uL (4.0-10.0)
[2021-06-30] MEDS: FUROsemide 40 mg Tablet 60 MG PO (05:20)
[2021-06-30 05:25] LABS: Blood Urea Nitrogen 9 mg/dL (8-23); Calcium 7.9 mg/dL (8.5-10.5); Carbon Dioxide 22 mmol/L (22-29); Chloride 103 mmol/L (98-107); Glucose 195 mg/dL (65-115); Osmolality Calculated 282 mOsm/kg (285-295); Sodium 134 mmol/L (136-145)
[2021-06-30 06:14] LABS: Glucose Point of Care 163 mg/dL (70-110)
--- NOTE | 2021-06-30 06:54 | PC.NURSE ---
06/30/21 Unable to get patient up into chair this AM for breakfast, she is NWB from her hip surgery
[2021-06-30 07:00] VITALS: BP 118/54; PULSE 79; RESP 13; O2SAT 93
[2021-06-30 07:44] LABS: SARS Covid-2 Antigen Negative (Negative)
[2021-06-30] MEDS: sennosides-docusate Tablet 1 TAB PO (08:09)
[2021-06-30] MEDS: spironolactone 25 mg Tablet 50 MG PO (08:09)
[2021-06-30] MEDS: BuSPIRONE 10 mg Tablet 5 MG PO (08:09)
[2021-06-30] MEDS: pantoprazole DR 40 mg Tablet PO (08:09)
[2021-06-30] MEDS: amlodipine 10 mg Tablet PO (08:10)
[2021-06-30] MEDS: cefTRIAXone 1,000 MG in sodium chloride 0.9% (plus) 50 ML 100 MG IV (08:10)
[2021-06-30] MEDS: ferrous sulfate EC 325 mg Tablet PO (08:10)
[2021-06-30] MEDS: insulin lispro 100 unit/1 mL SUBCUT (08:10)
[2021-06-30 09:25] VITALS: PULSE 79; RESP 16; O2SAT 93
--- NOTE | 2021-06-30 10:01 | PC.CHAP ---
Pastoral Care Encounter/Spiritual Assessment Type of Contact [] Declined director mba visit [] Patient/Family/Request visit [] Outpatient visit [] Follow-up visit [] Physician referral [] Code/Alert [x] Routine visit [] Staff referral [] Actively dying [] Patient sleeping [] Family support [] [] Out of room [] Palliative care [] [] Receiving care in room [] Pre-surgical visit [] Trauma [] Long length of stay [] ICU visit [] Other: Relational/Emotional Strength [x] Patient feels connected with others/family/visitors/staff [] Distress [] Loneliness/isolation [] Abandonment Spirituality of Patient [x] Person of Radha [] Attends Mosque of their Radha [x] Believes in Prayer [] Reads Bible or Hoahaoism materials [] There are Spiritual issues to be addressed Store Loss Prevention Manager Interventions [x] Prayer [x]x Active listening [x] Non-anxious presence [x] Spiritual/emotional support [] Crisis/trauma care [] Spiritual counseling [] Bereavement support [] Provided bereavement packet [] Provided Bible/devotional materials [] Provided toy/stuffed animal, coloring book to patient or family member [] Provided Communion [] Anointing/[place] [] Salvation [x Impact on Illness or Injury [] Angry [] Fearful [] Anxious [] Often cries [] Exhaustion [] Unable to work [] Unable to attend advent [] Unable to walk/stand [] Unable to read [] Unable to drive [] Unable to eat/drink [] Unable to sleep [] Unable to be with family [] Patient intubated [] Other: Summary Time spent with patient 10 min
[2021-06-30 11:00] VITALS: BP 132/89; PULSE 81; RESP 12; O2SAT 92
[2021-06-30 11:12] LABS: Glucose Point of Care 217 mg/dL (70-110)
--- NOTE | 2021-06-30 11:40 | P.DS_ITS ---
Discharge Providers Date of Admission: 06/28/21 17:33 Date of Discharge: June 30, 2021 Attending Provider at Admission: Maritza Fitzpatrick MD Attending Provider at Discharge: Maritza Fitzpatrick MD Primary Care Provider: Jeff Wick DO Diagnoses at Discharge Discharge Diagnosis (1) Abdominal distension: Status: Acute (2) Abdominal ascites: Status: Acute Reason for Visit Reason for Visit: ABDOMINAL DISTENTION Hospital Course Hospital Course 75-year female who carries diagnosis of liver cirrhosis, recurrent ascites, recurrent GI bleed related to portal hypertension, liver cirrhosis etiology is nonalcoholic steatohepatitis is, [facility] for worsening abdominal distention. She was admitted for paracentesis. 5200 mL peritoneal fluid removed. Patient symptoms improved. No significant drop in hemoglobin. She remained hemodynamically stable, she received albumin throughout her hospitalization. Sodium at discharge 134. Patient did not show any decompensated signs of liver cirrhosis such as hepatic encephalopathy. I have increased the dose of Lasix, added spironolactone at discharge. She would definitely benefit from TIPS procedure. COVID-19 negative, no signs of SBP. She was treated for UTI however she did not exhibit any symptoms or signs. Physical Exam Narrative: Patient is comfortable Nonfocal neuro exam Abdominal distention without tenderness Anasarca S1, S2 Pleasant and cooperative Saturating well on room air Urinary Catheter Management: Meyer: Cath Placed During This Visit: yes Reason for Continuing Indwelling Catheter: Other Urinary Catheter Date of Insertion: 06/28/21 Urinary Catheter Time of Insertion: 20:25 Discharge Data Studies Completed and Pending Completed Studies During Hospitalization Category Date Time Status CT abdomen pelvis wo con [id number] Urgent Cat Scan 06/28/21 14:54 [place] w [id number] Routine Ultrasound 06/29/21 19:03 Completed Pending at discharge Category Date Time Status Anaerobic Culture Routine Lab 06/28/21 19:03 Results Body Fluid Culture & GS Routine Lab 06/28/21 19:03 Results Urine Culture Routine Lab 06/28/21 21:08 Results Radiology Impressions Abdomen/Pelvis CT 06/28/21 14:54 IMPRESSION: Cirrhotic liver with sequela of portal hypertension including prominent upper abdominal varices, moderate volume abdominal/pelvic ascites, and splenomegaly. Additional moderate anasarca and moderate volume bilateral pleural effusions. Paracentesis Ultrasound 06/29/21 19:03 IMPRESSION: Uncomplicated paracentesis yielding 5200 ml of peritoneal fluid. Peritoneal fluid specimen collected for analysis as requested. Laboratory Results WBC 1.9 10^3/uL (4.0-10.0) L 06/30/21 04:14 RBC 3.60 10^6/uL (4.1-5.3) L 06/30/21 04:14 Hgb 9.0 g/dL (11.5-15.3) L 06/30/21 04:14 Hct 30.3 % (37.0-47.0) L 06/30/21 04:14 MCV 84.2 fl (81-99) 06/30/21 04:14 MCH 25.0 pg (28.0-34.0) L 06/30/21 04:14 MCHC 29.7 g/dL (30.0-36.0) L 06/30/21 04:14 RDW 16.1 % (12.1-15.1) H 06/30/21 04:14 Plt Count 121 10^3/cmm (130-400) L 06/30/21 04:14 MPV 9.2 fL (7.4-10.4) 06/30/21 04:14 Neut % (Auto) 52.1 % 06/30/21 04:14 Lymph % (Auto) 30.9 % 06/30/21 04:14 [place] % (Auto) 12.4 % 06/30/21 04:14 Eos % (Auto) 3.6 % 06/30/21 04:14 Baso % (Auto) 1.0 % 06/30/21 04:14 Neut # (Auto) 1.01 10^3/uL (1.8-7.7) L 06/30/21 04:14 Lymph # (Auto) 0.6 10^3/uL (0.8-4.8) L 06/30/21 04:14 [place] # (Auto) 0.2 10^3/uL (0.2-0.9) 06/30/21 04:14 Eos # (Auto) 0.1 10^3/uL (0.0-0.8) 06/30/21 04:14 Baso # (Auto) 0.0 10^3/uL (0.0-0.1) 06/30/21 04:14 Nucleated RBC % (auto) 0 % 06/30/21 04:14 Nucleated RBCs # 0.0 /100WBC 06/30/21 04:14 PT 15.20 SECONDS (12.1-14.9) H 06/28/21 15:55 INR 1.17 (0.8-1.2) 06/28/21 15:55 APTT 29.3 SECONDS (23.9-36.7) 06/28/21 15:55 Sodium 134 mmol/L (136-145) L 06/30/21 04:14 Potassium 4.0 mmol/L (3.5-5.1) 06/30/21 04:14 Chloride 103 mmol/L (98-107) 06/30/21 04:14 Carbon Dioxide 22 mmol/L (22-29) 06/30/21 04:14 Anion Gap 13.0 (5-19) 06/30/21 04:14 BUN 9 mg/dL (8-23) 06/30/21 04:14 Creatinine 0.4 mg/dL (0.5-0.9) L 06/30/21 04:14 GFR Calculation Not Reportable 06/30/21 04:14 Glucose 195 mg/dL (65-115) H 06/30/21 04:14 POC Glucose 217 mg/dL (70-110) H 06/30/21 10:49 Calculated Osmolality 282 mOsm/kg (285-295) L 06/30/21 04:14 Calcium 7.9 mg/dL (8.5-10.5) L 06/30/21 04:14 Magnesium 1.8 mg/dL (1.7-2.3) 06/29/21 04:15 Total Bilirubin 0.4 mg/dL (0.15-1.2) 06/29/21 04:15 AST 20 U/L (0-32) 06/29/21 04:15 ALT 8 U/L (0-33) 06/29/21 04:15 Alkaline Phosphatase 154 IU/L (35-105) H 06/29/21 04:15 Ammonia 59 umol/L (11-51) H 06/28/21 20:57 Total Protein 5.2 g/dL (6.6-8.7) L D 06/29/21 04:15 Albumin 2.6 g/dL (3.5-5.2) L 06/29/21 04:15 Globulin 2.6 g/dL (1.3-4.6) 06/29/21 04:15 Lipase 39 U/L (13-60) 06/28/21 15:55 Urine Color Yellow (Yellow) 06/28/21 21:08 Urine Appearance Cloudy (CLEAR) 06/28/21 21:08 Urine pH 5 (5-7) 06/28/21 21:08 Ur Specific [place] 1.020 (1.005-1.030) 06/28/21 21:08 Urine Protein 1+ (Negative) H 06/28/21 21:08 Urine Glucose (UA) Norm (Normal) 06/28/21 21:08 Urine Ketones Negative (Negative) 06/28/21 21:08 Urine Blood 3+ (Negative) H 06/28/21 21:08 Urine Nitrate Negative (Negative) 06/28/21 21:08 Urine Bilirubin Neg (Negative) 06/28/21 21:08 Urine Urobilinogen Norm mg/dL (Negative) 06/28/21 21:08 Ur Leukocyte Esterase 2+ (Negative) H 06/28/21 21:08 Urine RBC 0-4 /hpf (0-2) H 06/28/21 21:08 Urine WBC Too numerous to cnt /hpf (0-5) H 06/28/21 21:08 Ur Squamous Epith Cells 0-4 /hpf (0-5) H 06/28/21 21:08 Amorphous Sediment Not Reportable 06/28/21 21:08 Urine Bacteria 1+ /hpf (NONE) H 06/28/21 21:08 Urine Yeast 4+ /hpf H 06/28/21 21:08 Fluid Color Pale yellow 06/29/21 09:18 Fluid Appearance Clear 06/29/21 09:18 Fluid pH 8.0 06/29/21 09:18 Fluid WBC 220 /uL 06/29/21 09:18 Fluid RBC 0 10^3/uL 06/29/21 09:18 Fld Polynuclear WBCs # 0.030 06/29/21 09:18 Fld Polynuclear WBCs % 13.600 % 06/29/21 09:18 Fl Mononucl WBCs #(Auto) 0.190 06/29/21 09:18 Fl Mononuclear % Auto 86.400 % 06/29/21 09:18 Fluid Glucose 132.0 mg/dL 06/29/21 09:18 Fluid Total Protein 0.8 g/dL 06/29/21 09:18 Fluid Albumin 0.4 g/dL 06/29/21 09:18 Fluid LDH 37 U/L 06/29/21 09:18 SARS-CoV-2 Ag (Rapid) Negative (Negative) 06/30/21 07:15 Vitals Last Vital Signs Temp 98.6 F 06/30/21 03:00 Pulse 79 06/30/21 09:25 Resp 16 06/30/21 09:25 BP 118/54 06/30/21 07:00 Pulse Ox 93 06/30/21 09:25 Discharge Plan Discharge Patient Disposition: Xfer SNF Condition: Stable Prescriptions: New furosemide 40 mg Tablet 60 mg PO QAM Qty: 60 3RF spironolactone 25 mg Tablet 50 mg PO DAILY Qty: 90 3RF Continued amlodipine 10 mg tablet 10 mg PO DAILY@08 Qty: 90 3RF omeprazole 40 mg capsule,delayed release(DR/EC) 40 mg PO BID Qty: 180 3RF buspirone 5 mg tablet 5 mg PO DAILY 0RF bethanechol chloride 10 mg Tablet See Rx Instructions .ROUTE .COMPLEX 0RF Rx Instructions: 10 mg orally before meals and at bedtime @07:30,12:30,17:30 and 19:30 bisacodyl 10 mg Suppository 10 mg [place] DAILY PRN (Reason: Constipation) 0RF Rx Instructions: may give for mom failure or may give tablets ferrous sulfate 325 mg (65 mg iron) Tablet 325 mg PO BID 0RF Fleet Enema 19-7 gram/118 mL Enema 118 ml TX DAILY PRN (Reason: Constipation) 0RF Rx Instructions: may give for bisacodyl failure if no results contact md bisacodyl 5 mg Tablet 20 mg PO DAILY PRN (Reason: Constipation) 0RF Rx Instructions: may give for mom failure or may give suppository insulin lispro [Humalog KwikPen Insulin] 100 unit/mL Insulin Pen See Rx Instructions .ROUTE .COMPLEX 0RF Rx Instructions: sliding scale before meals and at bedtime 140-175=2 units 176-200=3 units 201-250=5 units 251-299=7 units 300 plus =9 units sennosides-docusate sodium [Senna-S] 8.6-50 mg Tablet 1 tab-cap PO BID 0RF polyethylene glycol 3350 17 gram/dose Powder 17 g PO DAILY 0RF oxycodone 5 mg Tablet 5 mg PO Q4H MDD 30mg PRN (Reason: Pain) 0RF mirtazapine 7.5 mg tablet 7.5 mg PO BEDTIME 0RF melatonin 5 mg Tablet 5 mg PO BEDTIME 0RF acetaminophen 500 mg Tablet 1,000 mg PO Q6H PRN (Reason: Pain) 0RF magnesium hydroxide [Milk of Magnesia] 400 mg/5 mL Suspension 30 ml PO DAILY PRN (Reason: Constipation) 0RF Lantus Solostar U-100 Insulin 100 unit/mL (3 mL) Insulin Pen 10 unit SUBCUT DAILY@08 0RF Nitrostat 0.4 mg Tablet, Sublingual 0.4 mg SUBLINGUAL Q5M PRN (Reason: Chest Pain) 0RF Rx Instructions: do not exceed 3 doses per episode Florastor 250 mg Capsule 250 mg PO BID 0RF Discontinued furosemide 20 mg tablet 20 mg PO QAM 0RF vancomycin 125 mg capsule 125 mg PO Q6H 10 Days Qty: 40 0RF Discharge Orders: Discharge Order (Routine); Ordered 06/30/21 Ordered By: Maritza Fitzpatrick Referrals: [facility] [Outside] Jeff Wick DO [Primary Care Provider] - Discharge Diet: Cardiac and Low Salt Discharge Activity: Use walker/crutches as instructed Patient Instructions: Spironolactone (By mouth), Furosemide (By mouth), TIPS (Transjugular Intrahepatic Portosystemic Shunt) (DC), Ascites (DC), Ascites (GEN), Opioid Safety Discharge Attestations Time Spent in Discharge Care*: less than 30 min Status at Discharge: Cognitive status at discharge: cognitively intact , Be havioral status at discharge: cooperative , Quality Metrics Clinical Quality Measures [ No reported AMI, CVA or VTE this stay] Coding Level of Care Code Acute Chg FW DC note Diagnoses Abdominal distension R14.0 Abdominal ascites R18.8
[2021-06-30 14:56] VITALS: BP 132/89; PULSE 81; RESP 12; O2SAT 92
== END 2021-06-30 16:00 | disposition skilled nursing facility (03) ==
LOC: ER 18:08 → MEDSURG 18:11
PROVIDERS: Admitting Provider Internal Medicine; Emergency Provider Emergency Medicine; PCP Family Medicine; Visit Provider Internal Medicine
DX: R14.0 Abdominal distension (gaseous) (principal); R18.8 Other ascites; K74.60 Unspecified cirrhosis of liver; E11.40 Type 2 diabetes mellitus with diabetic neuropathy, unspecified; Z79.4 Long term (current) use of insulin
CPT/HCPCS: 36415; 36416; 49083; 51702; 74176; 80048; 80053; 80503; 81001; 82042; 82140; 82945; 82962; 83615; 83690; 83735; 83986; 84157; 85025; 85610; 85730; 87070; 87075; 87077; 87086; 87186; 87205; 87426; 89050; 96365; 96367; 96372; 99285; G0378; J0696; J1815; J7040; P9047

== ENCOUNTER 2021-07-06 10:37 | Emergency (ER) | payer MEDICARE, SELFPAY ==
--- NOTE | 2021-07-06 | US_ITS ---
WS: [id number] ULTRASOUND-GUIDED PARACENTESIS CLINICAL INFORMATION: ascites COMPARISON: None. Procedure Informed consent: The risks, benefits, and alternatives of the procedure were discussed with the mansoor ent. Verbal and written consent was obtained. Timeout: A timeout was performed to confirm the correct patient, procedure, and site. Preparation: A suitable skin site was identified. The patient was prepped and draped in usual sterile fashion. Lidocaine 1% was used for local anesthesia. Catheter: 4 Filipino One-step Yueh catheter. Side: RIGHT Lower quadrant. Fluid Volume: 3000 ml Color: Clear yellow DISPOSITION: Discarded safely. Complications: None. US/US paracentesis abd w [id number] IMPRESSION: Uncomplicated ultrasound-guided paracentesis. Removal of 3000 cc ascites
[2021-07-06 10:40] VITALS: BP 122/53; PULSE 78; O2SAT 90
--- NOTE | 2021-07-06 11:08 | ECG_ITS ---
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 Measurements Intervals Points Rate: 79 P: 28 FL: 183 QRS: 82 QRSD: 92 T: -7 QT: 397 QTc: 455 Interpretive Statements SINUS RHYTHM ANTEROLATERAL MYOCARDIAL INFARCTION , OF INDETERMINATE AGE [40+ ms Q WAVE IN I/aVL/V3-V6] Compared to ECG 05/05/2021 13:36:06 Left-axis deviation no longer present Myocardial infarct finding still present Electronically Signed On 07-06-2021 18:38:14 CDT by Antonia Rene M.D. [id number]
[2021-07-06 11:23] LABS: Basophils % 0.8 %; Hematocrit 32.5 % (37.0-47.0); Hemoglobin 9.8 g/dL (11.5-15.3); Lymphocytes # 0.6 10^3/uL (0.8-4.8); Lymphocytes % 14.6 %; Mean Corpuscular HGB Conc 30.2 g/dL (30.0-36.0); Mean Corpuscular Hemoglobin 23.7 pg (28.0-34.0); Mean Corpuscular Volume 78.7 fl (81-99); Mean Platelet Volume 8.5 fL (7.4-10.4); Monocytes # 0.3 10^3/uL (0.2-0.9); Monocytes % 7.8 %; Neutrophils % 75.5 %; Nucleated Red Blood Cells % 0 %; Platelet Count 189 10^3/cmm (130-400); Red Blood Count 4.13 10^6/uL (4.1-5.3); Red Cell Distribution Width 16.2 % (12.1-15.1); White Blood Count 3.8 10^3/uL (4.0-10.0)
[2021-07-06 11:29] VITALS: BP 117/86; PULSE 80; RESP 16; O2SAT 94
[2021-07-06 11:33] LABS: INR 1.29 (0.8-1.2); Partial Thromboplastin Time 30.1 SECONDS (23.9-36.7)
[2021-07-06 11:46] LABS: Alanine Aminotransferase 14 U/L (0-33); Albumin Level 3.2 g/dL (3.5-5.2); Alkaline Phosphatase 205 IU/L (35-105); Aspartate Amino Transferase 31 U/L (0-32); Blood Urea Nitrogen 8 mg/dL (8-23); Calcium 8.7 mg/dL (8.5-10.5); Carbon Dioxide 23 mmol/L (22-29); Chloride 98 mmol/L (98-107); Globulin 3.2 g/dL (1.3-4.6); Glucose 117 mg/dL (65-115); Osmolality Calculated 271 mOsm/kg (285-295); Sodium 131 mmol/L (136-145); Total Bilirubin 0.5 mg/dL (0.15-1.2); Total Protein 6.4 g/dL (6.6-8.7)
[2021-07-06 11:47] LABS: Anion Gap 14.4 (5-19); Potassium 4.4 mmol/L (3.5-5.1)
--- NOTE | 2021-07-06 12:18 | ED_ITS ---
HPI - Abdominal Pain General: Chief Complaint: Abdominal Pain Stated Complaint: ABD PAIN, DISTENDED ABD Time Seen by Provider: 07/06/21 10:40 Source: patient Mode of arrival: ambulatory Limitations: other (hearing impairment/cochlear implant) History of Present Illness: 75-year-old female presents emergency room with complaint of abdominal pain swelling distention cramping she has a history of Lloyd has recurrent ascites requiring paracentesis. She not had any fever sweats or chills. Her last paracentesis was on 06/29 1 week ago. She denies any dysuria urgency or frequency vomiting or diarrhea. MD elicited complaint: abdominal pain Pertinent past history: other (LLOYD, with ascites) Onset (ago): month(s) Pain Consistency: constant Location: Diffuse Severity: moderate Quality: cramping Radiation: none Exacerbating factors: movement Relieving factors: rest Associated Symptoms: Reports anorexia, bloating, GI cramping, diarrhea, nausea and poor appetite; Denies belching, change in bowel habits, change in stool character, chills, coffee ground emesis, constipation, dyspepsia, dysuria, excessive flatus, fever(s), heartburn, hematochezia, hematuria, hematemesis, fecal incontinence, loose stools, melena, syncope and vomiting Review of Systems Const: Denies: fever(s) or chills ENMT: Denies: throat pain, ear or mastoid pain, nasal discharge or nasal congestion Card: Denies: chest pain, palpitations or syncope Resp: Denies: dyspnea, productive cough or non-productive cough GI: Reports: abdominal pain, nausea, early satiety, diarrhea, bloating and GI cramping; Denies: vomiting, hematemesis, coffee ground emesis, heartburn, constipation, belching, excessive flatus, fecal incontinence, change in bowel habits, change in stool character, hematochezia or melena : Denies: flank pain, difficulty voiding, dysuria, urinary frequency, urinary urgency or hematuria Skin/Breast: Denies: rash or pruritus Tej/Lymph: Reports: easy bruising PFS ED PFSH: Medical History Abdominal ascites Abdominal pain Abnormal colonoscopy Acute on chronic blood loss anemia Anemia Anemia AVM (arteriovenous malformation) 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 Colonoscopy showed multiple AVMs in the ascending and proximal transverse colon which were cauterized. Extensive diverticulosis with internal and external hemorrhoids were noted. GI bleeding LLOYD (nonalcoholic steatohepatitis) LLOYD (nonalcoholic steatohepatitis) Portal hypertension EGD esophageal banding on 03/25/16 she has been transfused multiple times, Tense ascites Type 2 diabetes mellitus Surgical History S/P endoscopy Family History Other Family history non-contributory Social History Smoking and tobacco status: never smoked Alcohol intake: never Housing: House Physical Exam Const: GENERAL APPEARANCE: cooperative ORIENTATION/CONSCIOUSNESS: Yes awake, Yes oriented to person, Yes oriented to place and Yes oriented to time HENMT: COMMON NORMALS: normocephalic and atraumatic HEAD & SCALP: normocephalic and atraumatic Neck/C-Spine: COMMON NORMALS: full ROM, no lymphadenopathy, supple and no JVD Resp: COMMON NORMALS: normal respiratory effort, No retractions, No use of acc essory muscles and clear to auscultation bilaterally AUSCULTATION: clear to auscultation bilaterally Cardio: COMMON NORMALS: no JVD, regular rate, regular rhythm and No murmurs present (Cardio) RATE: regular rate RHYTHM: regular rhythm GI: COMMON NORMALS: No hepatosplenomegaly present INSPECTION: Yes abdominal distension and Yes Fluid wave present AUSCULTATION: Yes normoactive bowel sounds PALPATION: No Tenderness to palpation present (GI), No Guarding due to palpation present (GI) and Yes No hepatosplenomegaly present PERCUSSION: dullness to percussion and Fluid wave present Extremity: COMMON NORMALS: normal to inspection, capillary refill normal, no clubbing, cyanosis or edema, no calf tenderness and no pedal edema Neuro: SENSORIUM/ORIENTATION: Yes oriented to person, Yes oriented to place and Yes oriented to time Skin: COMMON NORMALS: no rashes or lesions noted GENERAL SKIN EXAM: no rashes or lesions noted Course Vital Signs: Vital signs: Vital Signs Pulse Rate 81 07/06/21 14:57 Respiratory Rate 6 L 07/06/21 14:57 Blood Pressure 116/55 07/06/21 14:57 Pulse Oximetry 96 07/06/21 14:55 MDM - Abdominal Pain Medical Decision Making Improved after paracentesis could not discharge patient home follow-up with [facility] doctor return if has further problems. Medical Records I reviewed the patient's medical records. Lab Data I reviewed the patient's lab results. : 07/06/21 11:05 07/06/21 11:05 Labs/Radiology: Radiology Impressions Paracentesis Ultrasound 07/06/21 00:00 IMPRESSION: Uncomplicated ultrasound-guided paracentesis. Removal of 3000 cc ascites Laboratory Results WBC 3.8 10^3/uL (4.0-10.0) L 07/06/21 11:05 RBC 4.13 10^6/uL (4.1-5.3) 07/06/21 11:05 Hgb 9.8 g/dL (11.5-15.3) L 07/06/21 11:05 Hct 32.5 % (37.0-47.0) L 07/06/21 11:05 MCV 78.7 fl (81-99) L 07/06/21 11:05 MCH 23.7 pg (28.0-34.0) L 07/06/21 11:05 MCHC 30.2 g/dL (30.0-36.0) 07/06/21 11:05 RDW 16.2 % (12.1-15.1) H 07/06/21 11:05 Plt Count 189 10^3/cmm (130-400) 07/06/21 11:05 MPV 8.5 fL (7.4-10.4) 07/06/21 11:05 Neut % (Auto) 75.5 % 07/06/21 11:05 Lymph % (Auto) 14.6 % 07/06/21 11:05 [place] % (Auto) 7.8 % 07/06/21 11:05 Eos % (Auto) 1.0 % 07/06/21 11:05 Baso % (Auto) 0.8 % 07/06/21 11:05 Neut # (Auto) 2.90 10^3/uL (1.8-7.7) 07/06/21 11:05 Lymph # (Auto) 0.6 10^3/uL (0.8-4.8) L 07/06/21 11:05 [place] # (Auto) 0.3 10^3/uL (0.2-0.9) 07/06/21 11:05 Eos # (Auto) 0.0 10^3/uL (0.0-0.8) 07/06/21 11:05 Baso # (Auto) 0.0 10^3/uL (0.0-0.1) 07/06/21 11:05 Nucleated RBC % (auto) 0 % 07/06/21 11:05 Nucleated RBCs # 0.0 /100WBC 07/06/21 11:05 PT 16.50 SECONDS (12.1-14.9) H 07/06/21 11:05 INR 1.29 (0.8-1.2) H 07/06/21 11:05 APTT 30.1 SECONDS (23.9-36.7) 07/06/21 11:05 Sodium 131 mmol/L (136-145) L 07/06/21 11:05 Potassium 4.4 mmol/L (3.5-5.1) 07/06/21 11:05 Chloride 98 mmol/L (98-107) 07/06/21 11:05 Carbon Dioxide 23 mmol/L (22-29) 07/06/21 11:05 Anion Gap 14.4 (5-19) 07/06/21 11:05 BUN 8 mg/dL (8-23) 07/06/21 11:05 Creatinine 0.5 mg/dL (0.5-0.9) 07/06/21 11:05 GFR Calculation Not Reportable 07/06/21 11:05 Glucose 117 mg/dL (65-115) H 07/06/21 11:05 POC Glucose 104 mg/dL (70-110) 07/06/21 15:16 Calculated Osmolality 271 mOsm/kg (285-295) L 07/06/21 11:05 Calcium 8.7 mg/dL (8.5-10.5) 07/06/21 11:05 Total Bilirubin 0.5 mg/dL (0.15-1.2) 07/06/21 11:05 AST 31 U/L (0-32) 07/06/21 11:05 ALT 14 U/L (0-33) 07/06/21 11:05 Alkaline Phosphatase 205 IU/L (35-105) H 07/06/21 11:05 Total Protein 6.4 g/dL (6.6-8.7) L 07/06/21 11:05 Albumin 3.2 g/dL (3.5-5.2) L 07/06/21 11:05 Globulin 3.2 g/dL (1.3-4.6) 07/06/21 11:05 Discharge Plan Discharge Patient Disposition: Home Clinical Impression: Liver cirrhosis secondary to LLOYD, Ascites Condition: Stable Prescriptions: No Action buspirone 5 mg tablet 5 mg PO DAILY@07 0RF bethanechol chloride 10 mg Tablet See Rx Instructions .ROUTE .COMPLEX 0RF Rx Instructions: 10 mg orally before meals and at bedtime @07:30,12:30,17:30 and 19:30 bisacodyl 10 mg Suppository 10 mg HI DAILY PRN (Reason: Constipation) 0RF Rx Instructions: may give for mom failure or may give tablets ferrous sulfate 325 mg (65 mg iron) Tablet 325 mg PO BID@ 0RF Fleet Enema 19-7 gram/118 mL Enema 118 ml HI DAILY PRN (Reason: Constipation) 0RF Rx Instructions: may give for bisacodyl failure if no results contact bisacodyl 5 mg Tablet 20 mg PO DAILY PRN (Reason: Constipation) 0RF Rx Instructions: may give for mom failure or may give suppository insulin lispro [Humalog KwikPen Insulin] 100 unit/mL Insulin Pen See Rx Instructions .ROUTE .COMPLEX 0RF Rx Instructions: sliding scale before meals and at bedtime 140-175=2 units 176-200=3 units 201-250=5 units 251-299=7 units 300 plus =9 units sennosides-docusate sodium [Senna-S] 8.6-50 mg Tablet 1 tab-cap PO BID@ 0RF polyethylene glycol 3350 17 gram/dose Powder 17 g PO DAILY@07 0RF oxycodone 5 mg Tablet 5 mg PO Q4H MDD 30mg PRN (Reason: Pain) 0RF mirtazapine 7.5 mg tablet 7.5 mg PO BEDTIME@19 0RF melatonin 5 mg Tablet 5 mg PO BEDTIME@19 0RF acetaminophen 500 mg Tablet 1,000 mg PO Q6H PRN (Reason: Pain) 0RF magnesium hydroxide [Milk of Magnesia] 400 mg/5 mL Suspension 30 ml PO DAILY PRN (Reason: Constipation) 0RF Lantus Solostar U-100 Insulin 100 unit/mL (3 mL) Insulin Pen 10 unit SUBCUT DAILY@08 0RF nitroglycerin [Nitrostat] 0.4 mg Tablet, Sublingual 0.4 mg SUBLINGUAL Q5M PRN (Reason: Chest Pain) 0RF Rx Instructions: do not exceed 3 doses per episode Saccharomyces boulardii [Florastor] 250 mg Capsule 250 mg PO BID@07,17 0RF Rx Instructions: for 30 days for cdif furosemide 40 mg Tablet 60 mg PO QAM Qty: 60 3RF cefdinir 300 mg capsule 300 mg PO BID@07,17 0RF Rx Instructions: for 10 days omeprazole 40 mg capsule,delayed release(DR/EC) 40 mg PO BID@07,17 0RF spironolactone 25 mg tablet 50 mg PO DAILY@07 0RF amlodipine 10 mg tablet 10 mg PO DAILY@07 0RF Discharge Orders: Discharge ED (Routine); Ordered 07/06/21 Ordered By: Ramone Cortez Referrals: Jeff Wick DO [Primary Care Provider] - Discharge Diet: Usual diet Discharge Activity: Increase activity as tolerated Patient Instructions: Opioid Safety Activity Restrictions/Additional Instructions: Follow-up with primary care doctor as previosuly scheduled. Coding Level of Care Code ED Production Gear Cutter for Michelleg Fwd Exam Comprehensive
[2021-07-06 14:55] VITALS: BP 114/49; PULSE 91; RESP 16; O2SAT 96
[2021-07-06 14:57] VITALS: BP 116/55; PULSE 81; RESP 6
--- NOTE | 2021-07-06 15:20 | PC.NURSE ---
Report called to Yany @[email or web address]. Attempted to contact son but number on record & given bySNF was not accepting calls.
[2021-07-06 15:21] LABS: Glucose Point of Care 104 mg/dL (70-110)
== END 2021-07-06 15:42 | disposition home or self-care (01) ==
PROVIDERS: Emergency Provider Family Medicine; PCP Family Medicine
DX: K74.60 Unspecified cirrhosis of liver (principal); K75.81 Nonalcoholic steatohepatitis (NASH); R18.8 Other ascites; E11.9 Type 2 diabetes mellitus without complications; K76.6 Portal hypertension
CPT/HCPCS: 36416; 49083; 80053; 82962; 85025; 85610; 85730; 93005; 99283

== ENCOUNTER 2021-07-21 08:09 | Emergency (ER) | payer MEDICARE, SELFPAY ==
--- NOTE | 2021-07-21 08:12 | ED_ITS ---
HPI - Abdominal Pain General: Chief Complaint: Abdominal Pain Stated Complaint: ABDOMINAL PAIN W/DISTENTION Time Seen by Provider: 07/21/21 08:12 Source: patient Mode of arrival: ambulatory Limitations: other (Hearing impairment has cochlear implant) History of Present Illness: 75-year-old female presents to the emergency room via EMS from the long term. They are complaining of some right-sided flank pain. 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 Is been 2 weeks since she is had a paracentesis. She denies any dysuria urgency or frequency she has noted little bit of swelling on the right flank and increased distention of the abdomen other than that she denies any pain she states she is not particularly short of breath nursing reports that she had abdominal pain ove rnight they gave her oxycodone several times and she still is complaining of pain will she does not have significant bone discomfort when I seen her. She denies any chest pain as well. MD elicited complaint: abdominal pain Pertinent past history: other (Cirrhosis with ascites) Onset (ago): hour(s) Pain Consistency: constant Location: Diffuse Severity: moderate Quality: aching Radiation: none Migration to: no migration Exacerbating factors: nothing Relieving factors: nothing Associated Symptoms: Reports bloating; Denies belching, change in bowel habits, change in stool character, chills, coffee ground emesis, constipation, GI cramping, diarrhea, dyspepsia, dysuria, excessive flatus, fever(s), heartburn, hematochezia, hematuria, hematemesis, fecal incontinence, loose stools, melena, nausea, poor appetite, syncope and vomiting Review of Systems Const: Denies: fever(s) or chills ENMT: Denies: throat pain, ear or mastoid pain, nasal discharge or nasal congestion Card: Denies: chest pain, palpitations, irregular heart rhythm or syncope Resp: Denies: dyspnea, productive cough or non-productive cough GI: Reports: abdominal pain and bloating; Denies: nausea, vomiting, hematemesis, coffee ground emesis, heartburn, diarrhea, constipation, GI cramping, belching, excessive flatus, fecal incontinence, change in bowel habits, change in stool character, hematochezia or melena : Reports: flank pain; Denies: difficulty voiding, dysuria, urinary frequency, urinary urgency, urinary hesitancy or hematuria Skin/Breast: Denies: rash or pruritus [facility] ED PFSH: Medical History (Updated 07/21/21 @ 11:18 by Ramone Cortez DO) Abdominal ascites Abdominal pain Abnormal colonoscopy Anemia AVM (arteriovenous malformation) AVM (arteriovenous malformation) of colon with hemorrhage C. difficile colitis Cerebral aneurysm Diverticulosis Fluid overload GI bleed Esophageal variceal banding on 2 occasions in the past, EGD colonoscopy October 2015 upper endoscopy showed esophageal varices with no bleeding or stigmata of bleeding. Colonoscopy showed multiple AVMs in the ascending and proximal transverse colon which were cauterized. Extensive diverticulosis with internal and external hemorrhoids were noted. LLOYD (nonalcoholic steatohepatitis) Portal hypertension EGD esophageal banding on 03/25/16 she has been transfused multiple times Type 2 diabetes mellitus Surgical History S/P endoscopy Family History Other Family history non-contributory Social History Smoking and tobacco status: never smoked Alcohol intake: never Housing: House Physical Exam Const: COMMON NORMALS: no acute distress GENERAL APPEARANCE: cooperative and comfortable ORIENTATION/CONSCIOUSNESS: Yes awake, Yes oriented to person, Yes oriented to place and Yes oriented to time HENMT: COMMON NORMALS: normocephalic, atraumatic and hearing grossly normal bilaterally HEAD & SCALP: normocephalic and atraumatic Neck/C-Spine: COMMON NORMALS: no JVD Resp: COMMON NORMALS: normal respiratory effort, No retractions, No use of accessory muscles and clear to auscultation bilaterally AUSCULTATION: clear to auscultation bilaterally Cardio: COMMON NORMALS: no JVD, regular rate, regular rhythm and No murmurs present (Cardio) RATE: regular rate RHYTHM: regular rhythm GI: COMMON NORMALS: Soft to palpation and No hepatosplenomegaly present INSPECTION: Yes abdominal distension and Yes Fluid wave present AUSCULTATION: Yes normoactive bowel sounds PALPATION: Yes Soft to palpation, No Tenderness to palpation present (GI), No Guarding due to palpation present (GI) and Yes No hepatosplenomegaly present PERCUSSION: dullness to percussion and Fluid wave present Extremity: COMMON NORMALS: normal to inspection, capillary refill normal, no clubbing, cyanosis or edema, no calf tenderness and no pedal edema Neuro: SENSORIUM/ORIENTATION: Yes oriented to person, Yes oriented to place and Yes oriented to time Skin: COMMON NORMALS: no rashes or lesions noted GENERAL SKIN EXAM: no rashes or lesions noted Course Vital Signs: Vital signs: Vital Signs Temperature 98.3 F 07/21/21 08:25 Pulse Rate 81 07/21/21 11:55 Respiratory Rate 17 07/21/21 11:55 Blood Pressure 121/59 07/21/21 11:55 Pulse Oximetry 98 07/21/21 11:55 MDM - Abdominal Pain Medical Decision Making Patient has ascites. Ultrasound guided paracentesis took 3 and half liters off she is feeling much better we will discharge her back to the long term follow-up as needed. Medical Records I reviewed the patient's medical records. Lab Data I reviewed the patient's lab results. : 07/21/21 08:42 07/21/21 08:42 Labs/Radiology: Radiology Impressions Paracentesis Ultrasound 07/21/21 08:19 IMPRESSION: Uncomplicated ultrasound-guided paracentesis. Removal of 3500 cc clear yellow ascites Laboratory Results WBC 3.0 10^3/uL (4.0-10.0) L 07/21/21 08:42 RBC 3.86 10^6/uL (4.1-5.3) L 07/21/21 08:42 Hgb 9.1 g/dL (11.5-15.3) L 07/21/21 08:42 Hct 30.7 % (37.0-47.0) L 07/21/21 08:42 MCV 79.5 fl (81-99) L 07/21/21 08:42 MCH 23.6 pg (28.0-34.0) L 07/21/21 08:42 MCHC 29.6 g/dL (30.0-36.0) L 07/21/21 08:42 RDW 16.8 % (12.1-15.1) H 07/21/21 08:42 Plt Count 181 10^3/cmm (130-400) 07/21/21 08:42 MPV 8.4 fL (7.4-10.4) 07/21/21 08:42 Neut % (Auto) 61.7 % 07/21/21 08:42 Lymph % (Auto) 23.9 % 07/21/21 08:42 [place] % (Auto) 10.1 % 07/21/21 08:42 Eos % (Auto) 2.7 % 07/21/21 08:42 Baso % (Auto) 1.3 % 07/21/21 08:42 Neut # (Auto) 1.83 10^3/uL (1.8-7.7) 07/21/21 08:42 Lymph # (Auto) 0.7 10^3/uL (0.8-4.8) L 07/21/21 08:42 [place] # (Auto) 0.3 10^3/uL (0.2-0.9) 07/21/21 08:42 Eos # (Auto) 0.1 10^3/uL (0.0-0.8) 07/21/21 08:42 Baso # (Auto) 0.0 10^3/uL (0.0-0.1) 07/21/21 08:42 Nucleated RBC % (auto) 0 % 07/21/21 08:42 Nucleated RBCs # 0.0 /100WBC 07/21/21 08:42 Sodium 132 mmol/L (136-145) L 07/21/21 08:42 Potassium 4.4 mmol/L (3.5-5.1) 07/21/21 08:42 Chloride 97 mmol/L (98-107) L 07/21/21 08:42 Carbon Dioxide 25 mmol/L (22-29) 07/21/21 08:42 Anion Gap 14.4 (5-19) 07/21/21 08:42 BUN 12 mg/dL (8-23) 07/21/21 08:42 Creatinine 0.5 mg/dL (0.5-0.9) 07/21/21 08:42 GFR Calculation Not Reportable 07/21/21 08:42 Glucose 106 mg/dL (65-115) 07/21/21 08:42 Calculated Osmolality 274 mOsm/kg (285-295) L 07/21/21 08:42 Calcium 8.2 mg/dL (8.5-10.5) L 07/21/21 08:42 Total Bilirubin 0.5 mg/dL (0.15-1.2) 07/21/21 08:42 AST 16 U/L (0-32) 07/21/21 08:42 ALT 6 U/L (0-33) 07/21/21 08:42 Alkaline Phosphatase 146 IU/L (35-105) H 07/21/21 08:42 Total Protein 6.5 g/dL (6.6-8.7) L 07/21/21 08:42 Albumin 3.3 g/dL (3.5-5.2) L 07/21/21 08:42 Globulin 3.2 g/dL (1.3-4.6) 07/21/21 08:42 Urine Color Yellow (Yellow) 07/21/21 10:38 Urine Appearance Turbid (CLEAR) 07/21/21 10:38 Urine pH 5 (5-7) 07/21/21 10:38 Ur Specific Okay 1.010 (1.005-1.030) 07/21/21 10:38 Urine Protein Neg (Negative) 07/21/21 10:38 Urine Glucose (UA) Norm (Normal) 07/21/21 10:38 Urine Ketones Negative (Negative) 07/21/21 10:38 Urine Blood 2+ (Negative) H 07/21/21 10:38 Urine Nitrate Negative (Negative) 07/21/21 10:38 Urine Bilirubin Neg (Negative) 07/21/21 10:38 Urine Urobilinogen Norm mg/dL (Negative) 07/21/21 10:38 Ur Leukocyte Esterase 2+ (Negative) H 07/21/21 10:38 Urine RBC Too numerous to cnt /hpf (0-2) H 07/21/21 10:38 Urine WBC Too numerous to cnt /hpf (0-5) H 07/21/21 10:38 Ur Squamous Epith Cells 0-4 /hpf (0-5) H 07/21/21 10:38 Amorphous Sediment Not Reportable 07/21/21 10:38 Urine Bacteria Tntc /hpf (NONE) 07/21/21 10:38 Discharge Plan Discharge Patient Disposition: Home Clinical Impression: Ascites, Anemia, Cystitis Condition: Stable Prescriptions: New Macrobid 100 mg capsule 100 mg PO BID 7 Days Qty: 14 0RF Rx Instructions: must administer with a meal/food No Action buspirone 5 mg tablet 5 mg PO DAILY@07 0RF bethanechol chloride 10 mg Tablet See Rx Instructions .ROUTE .COMPLEX 0RF Rx Instructions: 10 mg orally before meals and at bedtime @07:30,12:30,17:30 and 19:30 bisacodyl 10 mg Suppository 10 mg MN DAILY PRN (Reason: Constipation) 0RF Rx Instructions: may give for mom failure or may give tablets ferrous sulfate 325 mg (65 mg iron) Tablet 325 mg PO BID@07,17 0RF Fleet Enema 19-7 gram/118 mL Enema 118 ml MN DAILY PRN (Reason: Constipation) 0RF Rx Instructions: may give for bisacodyl failure if no results contact md bisacodyl 5 mg Tablet 20 mg PO DAILY PRN (Reason: Constipation) 0RF Rx Instructions: may give for mom failure or may give suppository insulin lispro [Humalog KwikPen Insulin] 100 unit/mL Insulin Pen See Rx Instructions .ROUTE .COMPLEX 0RF Rx Instructions: sliding scale before meals and at bedtime 140-175=2 units 176-200=3 units 201-250=5 units 251-299=7 units 300 plus =9 units sennosides-docusate sodium [Senna-S] 8.6-50 mg Tablet 1 tab-cap PO BID@,17 0RF polyethylene glycol 3350 17 gram/dose Powder 17 g PO DAILY@07 0RF oxycodone 5 mg Tablet 5 mg PO Q4H MDD 30mg PRN (Reason: Pain) 0RF mirtazapine 7.5 mg tablet 7.5 mg PO BEDTIME@19 0RF melatonin 5 mg Tablet 5 mg PO BEDTIME@19 0RF acetaminophen 500 mg Tablet 1,000 mg PO Q6H PRN (Reason: Pain) 0RF magnesium hydroxide [Milk of Magnesia] 400 mg/5 mL Suspension 30 ml PO DAILY PRN (Reason: Constipation) 0RF Lantus Solostar U-100 Insulin 100 unit/mL (3 mL) Insulin Pen 10 unit SUBCUT DAILY@08 0RF nitroglycerin [Nitrostat] 0.4 mg Tablet, Sublingual 0.4 mg SUBLINGUAL Q5M PRN (Reason: Chest Pain) 0RF Rx Instructions: do not exceed 3 doses per episode Saccharomyces boulardii [Florastor] 250 mg Capsule 250 mg PO BID@07,17 0RF Rx Instructions: for 30 days for cdif furosemide 40 mg Tablet 60 mg PO QAM Qty: 60 3RF cefdinir 300 mg capsule 300 mg PO BID@,17 0RF Rx Instructions: for 10 days omeprazole 40 mg capsule,delayed release(DR/EC) 40 mg PO BID@07,17 0RF spironolactone 25 mg tablet 50 mg PO DAILY@07 0RF amlodipine 10 mg tablet 10 mg PO DAILY@07 0RF Discharge Orders: Discharge ED (Routine); Ordered 07/21/21 Ordered By: Ramone Cortez Referrals: Jeff Wick DO [Physician] - Patient Instructions: Opioid Safety Coding Level of Care Code ED Offset Printing Operator for Michelleg Fwd Exam Comprehensive
[2021-07-21 08:15] VITALS: BMI 27.4
--- NOTE | 2021-07-21 08:19 | US_ITS ---
WS: [id number] ULTRASOUND-GUIDED PARACENTESIS CLINICAL INFORMATION: ascites COMPARISON: None. Procedure Informed consent: The risks, benefits, and alternatives of the procedure were discussed with the mansoor ent. Verbal and written consent was obtained. Timeout: A timeout was performed to confirm the correct patient, procedure, and site. Preparation: A suitable skin site was identified. The patient was prepped and draped in usual sterile fashion. Lidocaine 1% was used for local anesthesia. Catheter: 4 Bangl[place]hi One-step Yueh catheter. Side: LEFT Lower quadrant. Fluid Volume: 3500 ml Color: Clear yellow DISPOSITION: Discarded safely. Complications: None. US/US paracentesis abd w [id number] IMPRESSION: Uncomplicated ultrasound-guided paracentesis. Removal of 3500 cc clear yellow ascites
[2021-07-21 08:25] VITALS: BP 127/67; PULSE 80; RESP 20; TEMP 36.8; O2SAT 94
[2021-07-21 08:48] LABS: Basophils % 1.3 %; Eosinophils # 0.1 10^3/uL (0.0-0.8); Eosinophils % 2.7 %; Hematocrit 30.7 % (37.0-47.0); Hemoglobin 9.1 g/dL (11.5-15.3); Lymphocytes # 0.7 10^3/uL (0.8-4.8); Lymphocytes % 23.9 %; Mean Corpuscular HGB Conc 29.6 g/dL (30.0-36.0); Mean Corpuscular Hemoglobin 23.6 pg (28.0-34.0); Mean Corpuscular Volume 79.5 fl (81-99); Mean Platelet Volume 8.4 fL (7.4-10.4); Monocytes # 0.3 10^3/uL (0.2-0.9); Monocytes % 10.1 %; Neutrophils # 1.83 10^3/uL (1.8-7.7); Neutrophils % 61.7 %; Nucleated Red Blood Cells % 0 %; Platelet Count 181 10^3/cmm (130-400); Red Blood Count 3.86 10^6/uL (4.1-5.3); Red Cell Distribution Width 16.8 % (12.1-15.1)
[2021-07-21 09:07] LABS: Alanine Aminotransferase 6 U/L (0-33); Albumin Level 3.3 g/dL (3.5-5.2); Alkaline Phosphatase 146 IU/L (35-105); Anion Gap 14.4 (5-19); Aspartate Amino Transferase 16 U/L (0-32); Blood Urea Nitrogen 12 mg/dL (8-23); Calcium 8.2 mg/dL (8.5-10.5); Carbon Dioxide 25 mmol/L (22-29); Chloride 97 mmol/L (98-107); Creatinine Clr Calc Pharmacy 58.4139; Globulin 3.2 g/dL (1.3-4.6); Glucose 106 mg/dL (65-115); Osmolality Calculated 274 mOsm/kg (285-295); Potassium 4.4 mmol/L (3.5-5.1); Sodium 132 mmol/L (136-145); Total Bilirubin 0.5 mg/dL (0.15-1.2); Total Protein 6.5 g/dL (6.6-8.7)
--- NOTE | 2021-07-21 09:23 | PC.NURSE ---
Ultrasound at bedside performing paracentesis. timeout at 0906 by technical service representative. suction at PT's left lower quadrant. PT has 1L of fluid out at this time. BP 119/56 HR77 O2 96% on 2L
[2021-07-21 09:50] VITALS: BP 98/62; PULSE 80; RESP 21; O2SAT 94
--- NOTE | 2021-07-21 09:51 | PC.NURSE ---
Paracentesis finished 0940. 3500mL of fluid withdrawn from PT abdomen. PT states she feels much better. skin surrounding site appears normal. PT states area surrounding site is non tender.
[2021-07-21 11:06] LABS: Urine Appearance Turbid (CLEAR); Urine Color Yellow (Yellow); pH Urine 5 (5-7)
[2021-07-21 11:07] LABS: Add Urine Microscopic? YES; Bilirubin Urine Neg (Negative); Blood Urine 2+ (Negative); Glucose Urine UA Norm (Normal); Ketones Urine Negative (Negative); Leukocyte Esterase Urine 2+ (Negative); Nitrate Urine Negative (Negative); Protein Urine Neg (Negative); Urobilinogen Urine Norm (Negative)
[2021-07-21 11:15] LABS: RBC Urine TOO NUMEROUS TO CNT /hpf (0-2); WBC Urine TOO NUMEROUS TO CNT /hpf (0-5)
[2021-07-21 11:16] LABS: Add Urine Culture? Yes; Bacteria Urine TNTC /hpf; Squamous Epithelial Cell Urine 0-4 /hpf (0-5)
[2021-07-21 11:55] VITALS: BP 121/59; PULSE 81; RESP 17; O2SAT 98
--- NOTE | 2021-07-21 12:00 | PC.NURSE ---
Attempted to call report to PT's assisted. DC info faxed to half-way at 1200
== END 2021-07-21 11:59 | disposition home or self-care (01) ==
PROVIDERS: Emergency Provider Family Medicine
DX: R18.8 Other ascites (principal); K74.60 Unspecified cirrhosis of liver; N30.91 Cystitis, unspecified with hematuria; D64.9 Anemia, unspecified; Z79.4 Long term (current) use of insulin; Z79.891 Long term (current) use of opiate analgesic
CPT/HCPCS: 49083; 80053; 81001; 85025; 87077; 87086; 87186; 99283

== ENCOUNTER 2021-08-22 02:55 | Inpatient (IN) | payer MEDICARE, SELFPAY ==
[2021-08-22] VITALS (12 sets, daily range): BP systolic 106–135; BP diastolic 50–66; PULSE 79–95; RESP 12–18; TEMP 36.8–37.6; O2SAT 93–96; BMI 25.7; BMI 25.0
--- NOTE | 2021-08-22 03:09 | XRR_ITS ---
PROCEDURE INFORMATION: Exam: XR Abdomen Exam date and time: 08/22/2021 3:27 AM Age: 75 years old Clinical indication: Bloating; Prior surgery; Surgery date: 6+ months; Surgery type: Pelvis; Additional info: Abdominal distention TECHNIQUE: Imaging protocol: XR of the abdomen. Views: Frontal supine view of the abdomen. 1 View. COMPARISON: CT abdomen pelvis con [id number] 06/28/2021 3:41 PM FINDINGS: Gastrointestinal tract: There is some centralization of the bowel loops, possibly secondary to ascites. Intraperitoneal space: Surgical clips are seen in the right upper quadrant of the abdomen and within the left hemipelvis. Bones/joints: Postoperative changes are seen within the right os coxa. XR/XR KUB portable [id number] IMPRESSION: Centralization of the bowel loops possibly secondary to ascites.
[2021-08-22 03:20] LABS: Basophils % 0.8 %; Eosinophils % 0.5 %; Hematocrit 25.6 % (37.0-47.0); Hemoglobin 7.8 g/dL (11.5-15.3); Lymphocytes # 0.7 10^3/uL (0.8-4.8); Lymphocytes % 18.8 %; Mean Corpuscular HGB Conc 30.5 g/dL (30.0-36.0); Mean Corpuscular Volume 75.5 fl (81-99); Mean Platelet Volume 8.3 fL (7.4-10.4); Monocytes # 0.5 10^3/uL (0.2-0.9); Monocytes % 12.9 %; Neutrophils # 2.63 10^3/uL (1.8-7.7); Neutrophils % 66.7 %; Nucleated Red Blood Cells % 0 %; Platelet Count 239 10^3/cmm (130-400); Red Blood Count 3.39 10^6/uL (4.1-5.3); Red Cell Distribution Width 16.7 % (12.1-15.1); White Blood Count 3.9 10^3/uL (4.0-10.0)
--- NOTE | 2021-08-22 03:21 | ED_ITS ---
HPI - Abdominal Pain General: Chief Complaint: Abdominal Pain Stated Complaint: ABD PAIN Time Seen by Provider: 08/22/21 02:59 Source: patient History of Present Illness: 75-year-old female presents from a alf. Stated complaint is abdominal pain. She denies significant abdominal pain. She states that her abdomen feels full, and that she has not been able to fully evacuate her bowel. No vomiting. No fever. She does have a history of liver cirrhosis. She has had paracentesis in the past. MD elicited complaint: abdominal pain Pertinent past history: other Onset (ago): hour(s) Pain Consistency: now resolved Location: Diffuse Quality: fullness Radiation: none Migration to: no migration Exacerbating factors: nothing Relieving factors: nothing Associated Symptoms: Reports constipation; Denies fever(s), hematochezia, hematemesis, loose stools and vomiting Review of Systems Const: Denies: fever(s) ENMT: Denies: throat pain Card: Denies: chest pain Resp: Denies: dyspnea, productive cough or non-productive cough GI: Reports: constipation; Denies: vomiting, hematemesis or hematochezia : Denies: flank pain Neuro: Denies: confusion PFSH ED PFSH: Medical History Abdominal ascites Abdominal pain Abnormal colonoscopy Anemia AVM (arteriovenous malformation) AVM (arteriovenous malformation) of colon with hemorrhage C. difficile colitis Cerebral aneurysm Diverticulosis Fluid overload GI bleed Esophageal variceal banding on 2 occasions in the past, EGD colonoscopy October 2015 upper endoscopy showed esophageal varices with no bleeding or stigmata of bleeding. Colonoscopy showed multiple AVMs in the ascending and proximal transverse colon which were cauterized. Extensive diverticulosis with internal and external hemorrhoids were noted. LLOYD (nonalcoholic steatohepatitis) Portal hypertension EGD esophageal banding on 03/25/16 she has been transfused multiple times Type 2 diabetes mellitus Surgical History S/P endoscopy Family History Other Family history non-contributory Social History Smoking and tobacco status: never smoked Alcohol intake: never Housing: House Physical Exam Const: COMMON NORMALS: alert GENERAL APPEARANCE: cooperative, comfortable and frail appearing ORIENTATION/CONSCIOUSNESS: Yes oriented to person, Yes oriented to place and Yes oriented to time HENMT: COMMON NORMALS: normocephalic, atraumatic and Normal external nose present HEAD & SCALP: normocephalic and atraumatic NOSE: Normal external nose present Eye: COMMON NORMALS: Equal, round and reactive pupils present and EOMs intact bilaterally PUPIL: Yes Equal, round and reactive pupils present Neck/C-Spine: GENERAL: Yes trachea midline Chest: CHEST: Yes Symmetrical chest wall rise Resp: COMMON NORMALS: normal respiratory effort, No use of accessory muscles and clear to auscultation bilaterally AUSCULTATION: clear to auscultation bilaterally Cardio: COMMON NORMALS: regular rate and regular rhythm RATE: regular rate RHYTHM: regular rhythm GI: COMMON NORMALS: Soft to palpation and non-tender INSPECTION: Yes abdominal distension (Mild to moderate) PALPATION: Yes Soft to palpation Extremity: COMMON NORMALS: no pedal edema Neuro: SENSORIUM/ORIENTATION: Yes alert, Yes oriented to person, Yes oriented to place and Yes oriented to time Course Consultations: Consultation #1: michel Time: 05:16 Vital Signs: Vital signs: Vital Signs Temperature 98.3 F 08/22/21 03:03 Pulse Rate 90 08/22/21 05:00 Respiratory Rate 18 08/22/21 05:00 Blood Pressure 106/56 08/22/21 05:00 Pulse Oximetry 94 08/22/21 05:00 MDM - Abdominal Pain Medical Decision Making 75-year-old female with abdominal fullness. She has a history of ascites. She does have a fair amount of fluid in her belly by palpation, and KUB. She does not have a bowel obstruction clinically, or by imaging. She had a large bowel movement here, which has improved her fullness, and she is currently asymptomatic essentially. Her hemoglobin is 7.8. Her INR is 1.56. She is also hyponatremic chronically. The patient has had now 3 black tarry Hemoccult positive stools, that are decently large. She will require observation to watch hemoglobins serially, and transfuse as necessary. Lab Data : 08/22/21 03:00 08/22/21 03:00 Labs/Radiology: Radiology Impressions KUB X-Ray 08/22/21 03:09 IMPRESSION: Centralization of the bowel loops possibly secondary to ascites. Laboratory Results WBC 3.9 10^3/uL (4.0-10.0) L 08/22/21 03:00 RBC 3.39 10^6/uL (4.1-5.3) L 08/22/21 03:00 Hgb 7.8 g/dL (11.5-15.3) L 08/22/21 03:00 Hct 25.6 % (37.0-47.0) L 08/22/21 03:00 MCV 75.5 fl (81-99) L 08/22/21 03:00 MCH 23.0 pg (28.0-34.0) L 08/22/21 03:00 MCHC 30.5 g/dL (30.0-36.0) 08/22/21 03:00 RDW 16.7 % (12.1-15.1) H 08/22/21 03:00 Plt Count 239 10^3/cmm (130-400) 08/22/21 03:00 MPV 8.3 fL (7.4-10.4) 08/22/21 03:00 Neut % (Auto) 66.7 % 08/22/21 03:00 Lymph % (Auto) 18.8 % 08/22/21 03:00 [place] % (Auto) 12.9 % 08/22/21 03:00 Eos % (Auto) 0.5 % 08/22/21 03:00 Baso % (Auto) 0.8 % 08/22/21 03:00 Neut # (Auto) 2.63 10^3/uL (1.8-7.7) 08/22/21 03:00 Lymph # (Auto) 0.7 10^3/uL (0.8-4.8) L 08/22/21 03:00 [place] # (Auto) 0.5 10^3/uL (0.2-0.9) 08/22/21 03:00 Eos # (Auto) 0.0 10^3/uL (0.0-0.8) 08/22/21 03:00 Baso # (Auto) 0.0 10^3/uL (0.0-0.1) 08/22/21 03:00 Nucleated RBC % (auto) 0 % 05/29/22 03:00 Nucleated RBCs # 0.0 /100WBC 08/22/21 03:00 PT 19.00 SECONDS (12.1-14.9) H 08/22/21 03:07 INR 1.56 (0.8-1.2) H 08/22/21 03:07 Sodium 129 mmol/L (136-145) L 08/22/21 03:00 Potassium 4.6 mmol/L (3.5-5.1) 08/22/21 03:00 Chloride 98 mmol/L (98-107) 08/22/21 03:00 Carbon Dioxide 19 mmol/L (22-29) L 08/22/21 03:00 Anion Gap 16.6 (5-19) 08/22/21 03:00 BUN 16 mg/dL (8-23) 08/22/21 03:00 Creatinine 0.5 mg/dL (0.5-0.9) 08/22/21 03:00 GFR Calculation Not Reportable 08/22/21 03:00 Glucose 99 mg/dL (65-115) 08/22/21 03:00 Calculated Osmolality 269 mOsm/kg (285-295) L 08/22/21 03:00 Calcium 8.1 mg/dL (8.5-10.5) L 08/22/21 03:00 Total Bilirubin 0.4 mg/dL (0.15-1.2) 08/22/21 03:00 AST 11 U/L (0-32) 08/22/21 03:00 ALT < 5 U/L (0-33) 08/22/21 03:00 Alkaline Phosphatase 135 IU/L (35-105) H 08/22/21 03:00 Total Protein 6.5 g/dL (6.6-8.7) L 08/22/21 03:00 Albumin 2.8 g/dL (3.5-5.2) L 08/22/21 03:00 Globulin 3.7 g/dL (1.3-4.6) 08/22/21 03:00 Lipase 35 U/L (13-60) 08/22/21 03:00 Discharge Plan Discharge Patient Disposition: Placed in Observation Clinical Impression: Abdominal ascites, Anemia, GI bleeding Coding Level of Care Code ED Pipeline Systems Operator for Chg Fwd Exam Comprehensive
[2021-08-22 03:30] LABS: Alanine Aminotransferase < 5 U/L (0-33); Albumin Level 2.8 g/dL (3.5-5.2); Alkaline Phosphatase 135 IU/L (35-105); Anion Gap 16.6 (5-19); Aspartate Amino Transferase 11 U/L (0-32); Blood Urea Nitrogen 16 mg/dL (8-23); Calcium 8.1 mg/dL (8.5-10.5); Carbon Dioxide 19 mmol/L (22-29); Chloride 98 mmol/L (98-107); Creatinine Clr Calc Pharmacy 56.7003; Globulin 3.7 g/dL (1.3-4.6); Glucose 99 mg/dL (65-115); Lipase 35 U/L (13-60); Osmolality Calculated 269 mOsm/kg (285-295); Potassium 4.6 mmol/L (3.5-5.1); Sodium 129 mmol/L (136-145); Total Bilirubin 0.4 mg/dL (0.15-1.2); Total Protein 6.5 g/dL (6.6-8.7)
[2021-08-22 03:37] LABS: INR 1.56 (0.8-1.2)
--- NOTE | 2021-08-22 03:43 | PC.NURSE ---
0300 Pt reports that she had a BM in her depend. Went to clean pt up and change depend. Found sm amount of hard stool at rectal opening. RN applied pressure while pt was bearing down. Pt was able to evacuate significant amt of stool. Once process completed pt reports that she no longer needs to have a BM. New depend placed after cleaning her up. Dr Lyn updated
--- NOTE | 2021-08-22 04:23 | PC.NURSE ---
0405 Pt called out she had another BM in her depend. Removed and cleaned pt up and placed new depend. Stool that she passed was dark tarry stool. Hemacult performed and resulted positive. Dr Lyn present and aware.
--- NOTE | 2021-08-22 05:07 | PC.NURSE ---
0450 Pt had another lrge BM black tarry stool. Pt cleaned up with new depend in place. Dr Lyn updated
--- NOTE | 2021-08-22 05:40 | P.HP_ITS ---
Providers/Chief Complaint Chief Complaint: ABD PAIN History of Present Illness The patient is a 75-year-old female who was transferred to the residential for abdominal distention. Please note that the patient is very hard of hearing even with cochlear implant in place. From what I was able to ascertain, she indicates that it has been approximate 4 weeks since last time that she had a paracentesis. She has a known history of cirrhosis with portal hypertension/Lloyd. Was noted by the emergency department physician that the patient had 2 or 3 episodes of hematochezia and there is concern for worsening of her anemia. She presents for further evaluation Review of Systems General: Reports: 10 or more systems reviewed and unremarkable except in HPI and below Medications/Allergies Home Medications Medication Instructions Recorded Confirmed Last Taken Type bethanechol chloride 10 mg tablet See Rx Instructions .ROUTE .COMPLEX 06/11/21 07/06/21 07/05/21 History bisacodyl 10 mg rectal suppository 10 mg [place] DAILY PRN 06/11/21 07/06/21 Unknown History bisacodyl 5 mg tablet 20 mg PO DAILY PRN 06/11/21 07/06/21 Unknown History buspirone 5 mg tablet 5 mg PO DAILY@07 06/11/21 07/06/21 07/06/21 History ferrous sulfate 325 mg (65 mg 325 mg PO BID@,06/11/21 07/06/21 07/06/21 07:00 History iron) tablet insulin lispro 100 unit/mL See Rx Instructions .ROUTE .COMPLEX 06/11/21 07/06/21 07/05/21 History subcutaneous pen (Humalog KwikPen (U-100) Insulin) melatonin 5 mg tablet 5 mg PO BEDTIME@06/11/21 07/06/21 07/05/21 History mirtazapine 7.5 mg tablet 7.5 mg PO BEDTIME@06/11/21 07/06/21 07/05/21 History oxycodone 5 mg tablet 5 mg PO Q4H PRN MDD 30mg 06/11/21 07/06/21 07/04/21 History polyethylene glycol 3350 17 17 g PO DAILY@07 06/11/21 07/06/21 07/06/21 History gram/dose oral powder sennosides 8.6 mg-docusate sodium 1 tab-cap PO BID@07,17 06/11/21 04/12/22 04/12/22 History 50 mg tablet (Senna-S) sodium phosphates 19 gram-7 118 ml [place] DAILY PRN 06/11/21 07/06/21 Unknown History gram/118 mL enema (Fleet Enema) acetaminophen 500 mg tablet 1,000 mg PO Q6H PRN 06/16/21 07/06/21 07/06/21 History insulin glargine 100 unit/mL (3 10 unit SUBCUT DAILY@06/16/21 07/06/21 07/06/21 07:00 History mL) subcutaneous pen (Lantus 10 units Solostar U-100 Insulin) magnesium hydroxide 400 mg/5 mL 30 ml PO DAILY PRN 06/16/21 07/06/21 Unknown History oral suspension (Milk of Magnesia) Saccharomyces boulardii 250 mg 250 mg PO BID@,06/28/21 07/06/21 07/06/21 07:00 History capsule (Florastor) nitroglycerin 0.4 mg sublingual 0.4 mg SUBLINGUAL Q5M PRN 06/28/21 07/06/21 Unknown History tablet (Nitrostat) furosemide 40 mg tablet 60 mg PO QAM #60 tab 06/30/21 07/06/21 07/06/21 07:00 Rx amlodipine 10 mg tablet 10 mg PO DAILY@07/06/21 07/06/21 07/06/21 07:00 History cefdinir 300 mg capsule 300 mg PO BID@,07/06/21 07/06/21 07/06/21 07:00 History omeprazole 40 mg capsule,delayed 40 mg PO BID@07/06/21 07/06/21 07/06/21 07:00 History release spironolactone 25 mg tablet 50 mg PO DAILY@07/06/21 07/06/21 07/06/21 History Allergies Allergy/AdvReac Type Severity Reaction Status Date / Time aspirin Allergy Intermediate rash Verified 07/06/21 11:20 atropine Allergy Intermediate unknown Verified 07/06/21 11:20 ciprofloxacin Allergy ALGY-Rash Verified 07/06/21 11:20 hydrocodone Allergy Unknown Verified 07/06/21 11:20 iodine Allergy ALGY-Hives Verified 07/06/21 11:20 meperidine [From Demerol] Allergy ADR-Nausea Verified 07/06/21 11:20 Sulfa (Sulfonamide Allergy ALGY-Rash Verified 07/06/21 11:20 Antibiotics) PFSH Acute PFSH: Medical History Abdominal ascites Abdominal pain Abnormal colonoscopy Anemia AVM (arteriovenous malformation) AVM (arteriovenous malformation) of colon with hemorrhage C. difficile colitis Cerebral aneurysm Diverticulosis Fluid overload GI bleed Esophageal variceal banding on 2 occasions in the past, EGD colonoscopy October 2015 upper endoscopy showed esophageal varices with no bleeding or stigmata of bleeding. Colonoscopy showed multiple AVMs in the ascending and proximal transverse colon which were cauterized. Extensive diverticulosis with internal and external hemorrhoids were noted. LLOYD (nonalcoholic steatohepatitis) Portal hypertension EGD esophageal banding on 03/25/16 she has been transfused multiple times Type 2 diabetes mellitus Surgical History S/P endoscopy Family History Other Family history non-contributory Social History Smoking and tobacco status: never smoked Alcohol intake: never Housing: House Vitals/I&O/Wt Last Vital Signs Temp 98.3 F 08/22/21 03:03 Pulse 90 08/22/21 05:00 Resp 18 08/22/21 05:00 BP 106/56 08/22/21 05:00 Pulse Ox 94 08/22/21 05:00 Weight last 48 hrs Weight 68.039 kg Physical Exam Narrative: General: -Alert -No acute distress -No dyspnea -No tachypnea Head: -Atraumatic -Normocephalic Eyes: -Pupils equally round and reactive to light and accommodation -Extraocular muscles intact Neurological: -Cranial nerves II-XII intact Neck: -No jugular venous distention -No thyromegaly -No cervical lymphadenopathy Heart: -Regular rate -Regular rhythm -No murmurs -No gallops -No rubs Lungs: -No wheeze -No rhonchi -No rales ? Abdomen: -Normal bowel sounds in all four quadrants -No rebound -No guarding -No tenderness Extremities: -2/4 pulse in all four extremities -No clubbing -No cyanosis -No edema -No calf tenderness present bilaterally -Negative Nithya?s sign bilaterally Musculoskeletal: -5/5 bilateral upper extremity strength -5/5 bilateral lower extremity strength -Sensorium of bilateral upper extremities are equal and intact -Sensorium of bilateral lower extremities are equal and intact ? Additional Details / Additional Findings / Exceptions / Miscellaneous: Data : 08/22/21 03:00 08/22/21 03:00 A&P Assessment and plan (1) Lower GI bleed: Status: Acute Plan Ascites, recurrent. We may consider consult and interventional radiology to perform ultrasound-guided paracentesis Gastrointestinal bleed observed in the emergency department. Patient has known history of AV malformation. There is a history of anemia, chronic, microcytic with history of iron deficiency. INR is elevated. PTT pending. Ferritin and iron panel pending. Check hemoglobin level every 6 hours. 681 g by mouth every 6 hours plus Protonix 40 Mill grams IV twice a day. Will need to consult gastroenterology on the morning of August 22, 2021 to determine whether EGD and/or colonoscopy may be warranted Hyponatremia, chronic. We will monitor sodium level intermittently. IV normal saline at 75 ML's per hour Coagulopathy. Will monitor PT/INR periodically Constipation Anxiety Coronary artery disease Diabetes. Will check fasting glucose to before meals and at bedtime and provide insulin sliding scale GERD. Proton 40 millions IV twice a day +6 feet 1 g by mouth every 6 hours Hypertension Lloyd/cirrhosis with portal hypertension Diverticulosis Neuropathy History of cerebral aneurysm, status post aneurysm clipping DVT Proflex is. Bilateral SCD Attestations Medical Necessity Statement*: Patient's anticipate length of stay is great than 2 midnights for treatment/evaluation of her anemia Coding Level of Care Code Acute Shipping Clerk for Chg Fwd Diagnoses Lower GI bleed K92.2
[2021-08-22 05:59] LABS: Partial Thromboplastin Time 35.2 SECONDS (23.9-36.7)
[2021-08-22 06:06] LABS: Ferritin 79 ng/mL (15-150); Iron 13 ug/dL (37-145); Percent Saturation 7.9 % (20-50); Total Iron Binding Capacity 163 mcg/dl; Unsaturated Iron Binding 150 ug/dL (112-347)
--- NOTE | 2021-08-22 07:43 | PC.NURSE ---
Transported to Room 256-1, cochlear implant better plugged in @BS, pt was wearing the attachment.
[2021-08-22 08:48] LABS: Glucose Point of Care 103 mg/dL (70-110)
[2021-08-22] MEDS: sodium chloride 0.9% 1,000 ML 75 ML IV (08:48)
[2021-08-22] MEDS: pantoprazole 40 mg SDV IVP ×2 (08:48→20:22)
[2021-08-22] MEDS: sucralfate 1 gm Tablet PO ×3 (08:48→20:22)
[2021-08-22 10:34] LABS: Hemoglobin 7.9 g/dL (11.5-15.3)
--- NOTE | 2021-08-22 10:42 | PC.PHAR ---
Addendum entered by Yany Conley 08/22/21 10:47: Called [facility] for patient MAR at 1046 - Nurse is to fax MAR over Original Note: attempted to call [facility] for patient MAR at 1041 with no answer.
[2021-08-22 11:33] LABS: Glucose Point of Care 133 mg/dL (70-110)
--- NOTE | 2021-08-22 11:54 | P.PN_ITS ---
Subjective Subjective: She is very hard of hearing, but hears when spoken to loudly. She reports she is doing all right. Denies abdominal pain. Has had no further bowel movement so far. Has no nausea or vomiting. Sitting up to eat clear liquid breakfast. Reports no resources likely was due to overuse of pain medications after she had an aneurysm . Does not remember ever having an EGD. Discussed with her concern regarding GI bleed, follow-up hemoglobin, assessment by surgery for endoscopic evaluation, possible paracentesis. Vitals/I&O/Wt Last Vital Signs Temp 98.3 F 08/22/21 03:03 Pulse 80 08/22/21 11:13 Resp 12 08/22/21 08:00 BP 119/56 08/22/21 11:13 Pulse Ox 93 08/22/21 11:13 Weight last 48 hrs Weight 66.224 kg Weight 68.039 kg Physical Exam Narrative: Sitting up in bed Const: COMMON NORMALS: alert GENERAL APPEARANCE: cooperative ORIENTATI ON/CONSCIOUSNESS: Yes awake OTHER: Very WIYOT HENMT: COMMON NORMALS: normocephalic, EAC's normal, Normal external nose present and moist oral mucous membranes HEAD & SCALP: normocephalic NOSE: Normal external nose present EXTERNAL AUDITORY CANAL: EAC's normal Neck/C-Spine: COMMON NORMALS: no meningeal signs Chest: CHEST: Yes Symmetrical chest wall rise Resp: COMMON NORMALS: clear to auscultation bilaterally AUSCULTATION: clear to auscultation bilaterally Cardio: COMMON NORMALS: regular rate, regular rhythm and No murmurs present (Cardio) RATE: regular rate RHYTHM: regular rhythm GI: COMMON NORMALS: Soft to palpation and non-tender INSPECTION: Yes abdominal distension PALPATION: Yes Soft to palpation Extremity: COMMON NORMALS: no pedal edema Neuro: COMMON NORMALS: moves all extremities SENSORIUM/ORIENTATION: Yes alert MENINGEAL SIGNS: Yes no meningeal signs Psych: COMMON NORMALS: mental status grossly normal Skin: COMMON NORMALS: no wounds RASHES: no rashes Data : 08/22/21 09:25 08/22/21 03:00 A&P Assessment and plan (1) Lower GI bleed: Hemoglobin decreased compared to June at which time was 9.1, currently 7.8, follow-up hemoglobin levels. Appreciate surgical evaluation regarding hematochezia, GI bleeding with consideration of endoscopy. She also has liver cirrhosis, does not remember ever having upper endoscopy. CLD. PPI. Status: Acute (2) Abdominal ascites: Discussed with surgery possible paracentesis, if unable to obtain, otherwise consider follow-up with interventional radiology for paracentesis. She denies abdominal pain, has no nausea, appetite is okay. No sign of sepsis and so far no obvious suggestion of SBP. Status: Acute Plan Iron deficiency anemia: Acute on chronic anemia with iron deficiency, consideration of endoscopic evaluation as above. Hyponatremia, acute on chronic. Received NS IVF, hold further fluid, recheck sodium. Coagulopathy. Will monitor PT/INR periodically Constipation Anxiety Coronary artery disease Diabetes. Will check fasting glucose to before meals and at bedtime and provide insulin sliding scale GERD. Proton 40 millions IV twice a day +6 feet 1 g by mouth every 6 hours Hypertension Menard/cirrhosis with portal hypertension Diverticulosis Neuropathy History of cerebral aneurysm, status post aneurysm clipping DVT Proflex is. Bilateral SCD Attestations Medical Necessity Statement*: Continue admission versus management of GI bleeding, recurrent ascites. Coding Level of Care Code Acute Eye Clinic Manager for Michelleg Janice Diagnoses Lower GI bleed K92.2 Abdominal ascites R18.8
[2021-08-22] MEDS: peg /e-lyte soln 4,000 mL Btl 4000 ML PO (13:28)
[2021-08-22 15:37] LABS: Hemoglobin 8.2 g/dL (11.5-15.3)
[2021-08-22 15:59] LABS: Sodium 129 mmol/L (136-145)
[2021-08-22 17:10] LABS: Glucose Point of Care 229 mg/dL (70-110)
[2021-08-22] MEDS: insulin lispro 100 unit/1 mL SUBCUT (18:04)
--- NOTE | 2021-08-22 22:05 | PC.NURSE ---
Pt noted to be incontinent of bowel and bladder. This RN performed brandin care and applied new brief. Bright red blood and two small clots noted in stool. Lab at bedside checking H&H as previously ordered. Dr. Mcguire made aware. No new orders at this time.
[2021-08-22 22:14] LABS: Glucose Point of Care 142 mg/dL (70-110)
[2021-08-23] VITALS (15 sets, daily range): BP systolic 97–146; BP diastolic 50–82; PULSE 76–114; RESP 16–17; TEMP 36.2–38.2; O2SAT 92–99
[2021-08-23] MEDS: sucralfate 1 gm Tablet PO ×3 (01:35→20:43)
[2021-08-23 04:00] LABS: Basophils % 0.6 %; Eosinophils # 0.1 10^3/uL (0.0-0.8); Eosinophils % 1.6 %; Hematocrit 24.5 % (37.0-47.0); Hemoglobin 7.6 g/dL (11.5-15.3); Lymphocytes # 0.7 10^3/uL (0.8-4.8); Lymphocytes % 22.6 %; Mean Corpuscular Hemoglobin 23.1 pg (28.0-34.0); Mean Corpuscular Volume 74.5 fl (81-99); Mean Platelet Volume 8.3 fL (7.4-10.4); Monocytes # 0.5 10^3/uL (0.2-0.9); Neutrophils # 1.87 10^3/uL (1.8-7.7); Neutrophils % 59.6 %; Nucleated Red Blood Cells % 0 %; Platelet Count 244 10^3/cmm (130-400); Red Blood Count 3.29 10^6/uL (4.1-5.3); Red Cell Distribution Width 16.7 % (12.1-15.1); White Blood Count 3.1 10^3/uL (4.0-10.0)
[2021-08-23 04:09] LABS: INR 1.54 (0.8-1.2)
[2021-08-23 04:20] LABS: Alanine Aminotransferase 6 U/L (0-33); Albumin Level 2.7 g/dL (3.5-5.2); Alkaline Phosphatase 138 IU/L (35-105); Anion Gap 15.2 (5-19); Aspartate Amino Transferase 14 U/L (0-32); Blood Urea Nitrogen 11 mg/dL (8-23); Carbon Dioxide 19 mmol/L (22-29); Chloride 100 mmol/L (98-107); Creatinine Clr Calc Pharmacy 56.0146; Globulin 3.6 g/dL (1.3-4.6); Glucose 112 mg/dL (65-115); Osmolality Calculated 270 mOsm/kg (285-295); Potassium 4.2 mmol/L (3.5-5.1); Sodium 130 mmol/L (136-145); Total Bilirubin 0.4 mg/dL (0.15-1.2); Total Protein 6.3 g/dL (6.6-8.7)
[2021-08-23 06:39] LABS: Glucose Point of Care 105 mg/dL (70-110)
--- NOTE | 2021-08-23 07:31 | P.ANESASSM_ITS ---
Pre-Anesthetic Assessment Height/Weight: Height 1.63 m Weight 66.224 kg Temp Pulse Resp BP Pulse Ox 99.0 F 84 16 129/64 92 08/23/21 04:00 08/23/21 04:00 08/23/21 04:00 08/23/21 04:00 08/23/21 04:00 Operation Date: 08/23/21 08:00 Proposed Procedures p EGD(Not Applicable) - Carlos Saleem MD Familial anesthetic complications: Patient has hearing loss. Hx obtained through written communication. Denies hx of anesthesia complications. Was Beta Nathan taken within 24 hours: N/A Was Clonidine taken within 24 hours: N/A Social No alcohol and No tobacco Airway Submandibular: within normal limits Cervical ROM: within normal limits Mallampati: Class II Dentition: chipped Pulmonary None reported CV/HEM Anemia, Hypertension and Murmur TTE 02/2021 ?CONCLUSIONS ?LV systolic function is normal with EF of 55-60% ?Normal diastolic function ?Left atrium is severely dilated ?Mild mitral regurgitation ?Mild to moderate tricuspid regurgitation ?Mild pulmonic regurgitation ?Trivial pericardial effusion ?No comparison studies are available EKG 07/06/21 ? Interpretive Statements SINUS RHYTHM ANTEROLATERAL MYOCARDIAL INFARCTION , OF INDETERMINATE AGE [40+ ms Q WAVE IN I/aVL/V3-V6] Compared to ECG 05/05/2021 13:36:06 Left-axis deviation no longer present Myocardial infarct finding still present Electronically Signed On 07-06-2021 18:38:14 CDT by Antonia Rene M.D. [email or web address] Hyponatremia Hepatic Cirrhosis (LLOYD, abdominal ascites last paracentesis 07/21/21 with 3500 cc removed, portal htn s/p banding 2015) GI Gastroesophageal Reflux Disease Hx of GI bleed AVM of colon Metabolic Diabetes Mellitus Neuropsych Anxiety and Neuropathy Cerebral aneurysm s/p clipping Anesthetic Plan ASA status: 3 Anesthesia: Anesthesia Evaluation, General and MAC Other: We discussed risk and benefits of anesthesia including PONV, sore throat (sometimes severe), corneal abrasion, positioning and peripheral nerve injuries, life threatening allergic reaction, post operative ICU admission requiring prolonged intubation, stroke, heart attack, , and rare incidences of recall. Patient consents to proceed with anesthesia. Risk of > 500 ml blood loss (7ml/kg in children): No Medications/Allergies Home Medications Medication Instructions Recorded Confirmed Last Taken Type bethanechol chloride 10 mg tablet See Rx Instructions .ROUTE .COMPLEX 06/11/21 08/22/21 07/05/21 History bisacodyl 10 mg rectal suppository 10 mg [place] DAILY PRN 06/11/21 08/22/21 Unknown History bisacodyl 5 mg tablet 20 mg PO DAILY PRN 06/11/21 08/22/21 Unknown History buspirone 5 mg tablet 5 mg PO DAILY@07 06/11/21 08/22/21 07/06/21 History ferrous sulfate 325 mg (65 mg 325 mg PO BID@,06/11/21 08/22/21 07/06/21 07:00 History iron) tablet insulin lispro 100 unit/mL See Rx Instructions .ROUTE .COMPLEX 06/11/21 08/22/21 07/05/21 History subcutaneous pen (Humalog KwikPen (U-100) Insulin) melatonin 5 mg tablet 5 mg PO BEDTIME@06/11/21 08/22/21 07/05/21 History mirtazapine 7.5 mg tablet 7.5 mg PO BEDTIME@06/11/21 08/22/21 07/05/21 History polyethylene glycol 3350 17 17 g PO DAILY@06/11/21 08/22/21 07/06/21 History gram/dose oral powder sennosides 8.6 mg-docusate sodium 1 tab-cap PO BID@,06/11/21 08/22/21 07/06/21 History 50 mg tablet (Senna-S) sodium phosphates 19 gram-7 118 ml [place] DAILY PRN 06/11/21 08/22/21 Unknown History gram/118 mL enema (Fleet Enema) acetaminophen 500 mg tablet 1,000 mg PO Q6H PRN 06/16/21 08/22/21 07/06/21 History insulin glargine 100 unit/mL (3 10 unit SUBCUT DAILY@08 06/16/21 08/22/21 07/06/21 07:00 History mL) subcutaneous pen (Lantus 10 units Solostar U-100 Insulin) magnesium hydroxide 400 mg/5 mL 30 ml PO DAILY PRN 06/16/21 08/22/21 Unknown History oral suspension (Milk of Magnesia) nitroglycerin 0.4 mg sublingual 0.4 mg SUBLINGUAL Q5M PRN 06/28/21 08/22/21 Unknown History tablet (Nitrostat) furosemide 40 mg tablet 60 mg PO QAM #60 tab 06/30/21 08/22/21 07/06/21 07:00 Rx amlodipine 10 mg tablet 10 mg PO DAILY@07/06/21 08/22/21 07/06/21 07:00 History omeprazole 40 mg capsule,delayed 40 mg PO BID@,07/06/21 08/22/21 07/06/21 07:00 History release spironolactone 25 mg tablet 50 mg PO DAILY@07/06/21 08/22/21 07/06/21 History ondansetron HCl 8 mg tablet 8 mg PO Q8H PRN 08/22/21 08/22/21 Unknown History tramadol 50 mg tablet 50 mg PO Q6H PRN 08/22/21 08/22/21 Unknown History Allergies Allergy/AdvReac Type Severity Reaction Status Date / Time aspirin Allergy Intermediate rash Verified 07/06/21 11:20 atropine Allergy Intermediate unknown Verified 07/06/21 11:20 ciprofloxacin Allergy ALGY-Rash Verified 07/06/21 11:20 hydrocodone Allergy Unknown Verified 07/06/21 11:20 iodine Allergy ALGY-Hives Verified 07/06/21 11:20 meperidine [From Demerol] Allergy ADR-Nausea Verified 07/06/21 11:20 Sulfa (Sulfonamide Allergy ALGY-Rash Verified 07/06/21 11:20 Antibiotics) Current Medications Generic Name Dose Route Start Last Admin Trade Name Freq PRN Reason Stop Dose Admin Insulin Human Lispro 0 unit 08/22/21 08:00 08/22/21 22:07 Insulin Lispro 100 Unit/1 Ml SUBCUT Not Given WM&BEDTIME [facility] Protocol Pantoprazole Sodium 40 mg 08/22/21 07:40 08/22/21 20:22 Pantoprazole 40 Mg Sdv IVP 40 mg Q12H RAMYA Administration Sucralfate 1 gm 08/22/21 07:40 08/23/21 01:35 Sucralfate 1 Gm Tablet PO 1 gm Q6H RAMYA Administration PFSH Anesthesia Medical History Abdominal ascites Abdominal pain Abnormal colonoscopy Anemia AVM (arteriovenous malformation) AVM (arteriovenous malformation) of colon with hemorrhage C. difficile colitis Cerebral aneurysm Diverticulosis Fluid overload GI bleed Esophageal variceal banding on 2 occasions in the past, EGD colonoscopy October 2015 upper endoscopy showed esophageal varices with no bleeding or stigmata of bleeding. Colonoscopy showed multiple AVMs in the ascending and proximal transverse colon which were cauterized. Extensive diverticulosis with internal and external hemorrhoids were noted. LLOYD (nonalcoholic steatohepatitis) Portal hypertension EGD esophageal banding on 03/25/16 she has been transfused multiple times Type 2 diabetes mellitus Surgical History S/P endoscopy Family History Other Family history non-contributory Social History Smoking and tobacco status: never smoked Alcohol intake: never Housing: House Data Anesthesia : 08/23/21 03:52 08/23/21 03:52 Short CBC 08/22/21 08/22/21 08/22/21 Range/Units 03:00 09:25 15:30 WBC 3.9 L (4.0-10.0) 10^3/uL Hgb 7.8 L 7.9 L 8.2 L (11.5-15.3) g/dL Hct 25.6 L (37.0-47.0) % MCV 75.5 L (81-99) fl Plt Count 239 (130-400) 10^3/cmm Neut % (Auto) 66.7 % Neut # (Auto) 2.63 (1.8-7.7) 10^3/uL 08/22/21 08/23/21 Range/Units 21:45 03:52 WBC 3.1 L (4.0-10.0) 10^3/uL Hgb 8.0 L 7.6 L (11.5-15.3) g/dL Hct 24.5 L (37.0-47.0) % MCV 74.5 L (81-99) fl Plt Count 244 (130-400) 10^3/cmm Neut % (Auto) 59.6 % Neut # (Auto) 1.87 (1.8-7.7) 10^3/uL BMP 08/22/21 08/22/21 08/23/21 03:00 15:30 03:52 Sodium 129 L 129 L 130 L Potassium 4.6 4.2 Chloride 98 100 Carbon Dioxide 19 L 19 L BUN 16 11 Creatinine 0.5 0.5 Glucose 99 112 Calcium 8.1 L 8.0 L Liver Function 08/22/21 08/23/21 Range/Units 03:00 03:52 Total Bilirubin 0.4 0.4 (0.15-1.2) mg/dL AST 11 14 (0-32) U/L ALT < 5 6 (0-33) U/L Alkaline Phosphatase 135 H 138 H (35-105) IU/L Albumin 2.8 L 2.7 L (3.5-5.2) g/dL Blood Bank 08/22/21 05:26 Blood Type O Positive Rho(D) Type Positive Antibody Screen Negative Coags 08/22/21 08/22/21 08/23/21 03:07 03:07 03:52 PT 19.00 H 18.80 H INR 1.56 H 1.54 H APTT 35.2 Cardiac Studies: 2 Echocardiogram 02/28/21
--- NOTE | 2021-08-23 07:32 | PC.NURSE ---
Bedside report received from Leighann LAMBERT at this time.
--- NOTE | 2021-08-23 07:51 | PC.NURSE ---
Attempted to call GI Lab and let them know that it does show that patient received her bowel prep. Dr. Saleem here discussing with me about patient's bowel prep.
[2021-08-23] MEDS: sodium chloride 0.9% 1,000 ML 30 ML IV ×2 (08:00→08:14)
--- NOTE | 2021-08-23 08:15 | PM.CONSULT ---
Providers/Reason For Consult Consulting Physician/Specialty*: Hospitalist service Reason for Consult*: GI bleed Attending Physician: Alonso Christopher MD History of Present Illness History of Present Illness Martha Moore is a 75 year old female with history of cirrhosis, portal hypertension from [place] who presented to the ER with abdominal distention. Patient had paracentesis in June 2021 x 3.5 L was drained. In the ER patient was noted to have 2-3 episodes of hematochezia. She denies any abdominal pain, nausea, vomiting, constipation, diarrhea. She states that she has had multiple EGDs and colonoscopies in the past. Review of Systems General: Reports: 10 or more systems reviewed and unremarkable except in HPI and below Medications/Allergies Home Medications Medication Instructions Recorded Confirmed Last Taken Type bethanechol chloride 10 mg tablet See Rx Instructions .ROUTE .COMPLEX 06/11/21 08/22/21 07/05/21 History bisacodyl 10 mg rectal suppository 10 mg DE DAILY PRN 06/11/21 08/22/21 Unknown History bisacodyl 5 mg tablet 20 mg PO DAILY PRN 06/11/21 08/22/21 Unknown History buspirone 5 mg tablet 5 mg PO DAILY@06/11/21 08/22/21 07/06/21 History ferrous sulfate 325 mg (65 mg 325 mg PO BID@,06/11/21 08/22/21 07/06/21 07:00 History iron) tablet insulin lispro 100 unit/mL See Rx Instructions .ROUTE .COMPLEX 06/11/21 08/22/21 07/05/21 History subcutaneous pen (Humalog KwikPen (U-100) Insulin) melatonin 5 mg tablet 5 mg PO BEDTIME@06/11/21 08/22/21 07/05/21 History mirtazapine 7.5 mg tablet 7.5 mg PO BEDTIME@06/11/21 08/22/21 07/05/21 History polyethylene glycol 3350 17 17 g PO DAILY@06/11/21 08/22/21 07/06/21 History gram/dose oral powder sennosides 8.6 mg-docusate sodium 1 tab-cap PO BID@,06/11/21 08/22/21 07/06/21 History 50 mg tablet (Senna-S) sodium phosphates 19 gram-7 118 ml DE DAILY PRN 06/11/21 08/22/21 Unknown History gram/118 mL enema (Fleet Enema) acetaminophen 500 mg tablet 1,000 mg PO Q6H PRN 06/16/21 08/22/21 07/06/21 History insulin glargine 100 unit/mL (3 10 unit SUBCUT DAILY@08 06/16/21 08/22/21 07/06/21 07:00 History mL) subcutaneous pen (Lantus 10 units Solostar U-100 Insulin) magnesium hydroxide 400 mg/5 mL 30 ml PO DAILY PRN 06/16/21 08/22/21 Unknown History oral suspension (Milk of Magnesia) nitroglycerin 0.4 mg sublingual 0.4 mg SUBLINGUAL Q5M PRN 06/28/21 08/22/21 Unknown History tablet (Nitrostat) furosemide 40 mg tablet 60 mg PO QAM #60 tab 06/30/21 08/22/21 07/06/21 07:00 Rx amlodipine 10 mg tablet 10 mg PO DAILY@07/06/21 08/22/21 07/06/21 07:00 History omeprazole 40 mg capsule,delayed 40 mg PO BID@,07/06/21 08/22/21 07/06/21 07:00 History release spironolactone 25 mg tablet 50 mg PO DAILY@07/06/21 08/22/21 07/06/21 History ondansetron HCl 8 mg tablet 8 mg PO Q8H PRN 08/22/21 08/22/21 Unknown History tramadol 50 mg tablet 50 mg PO Q6H PRN 08/22/21 08/22/21 Unknown History Allergies Allergy/AdvReac Type Severity Reaction Status Date / Time aspirin Allergy Intermediate rash Verified 07/06/21 11:20 atropine Allergy Intermediate unknown Verified 07/06/21 11:20 ciprofloxacin Allergy ALGY-Rash Verified 07/06/21 11:20 hydrocodone Allergy Unknown Verified 07/06/21 11:20 iodine Allergy ALGY-Hives Verified 07/06/21 11:20 meperidine [From Demerol] Allergy ADR-Nausea Verified 07/06/21 11:20 Sulfa (Sulfonamide Allergy ALGY-Rash Verified 07/06/21 11:20 Antibiotics) Current Medications Generic Name Dose Route Start Last Admin Trade Name Myra PRN Reason Stop Dose Admin Insulin Human Lispro 0 unit 08/22/21 08:00 08/22/21 22:07 Insulin Lispro 100 Unit/1 Ml SUBCUT Not Given [facility]ED[facility] Protocol Pantoprazole Sodium 40 mg 08/22/21 07:40 08/22/21 20:22 Pantoprazole 40 Mg Sdv IVP 40 mg Q12H RAMYA Administration Sucralfate 1 gm 08/22/21 07:40 08/23/21 01:35 Sucralfate 1 Gm Tablet PO 1 gm Q6H RAMYA Administration PFSH Acute PFSH: Medical History Abdominal ascites Abdominal pain Abnormal colonoscopy Anemia AVM (arteriovenous malformation) AVM (arteriovenous malformation) of colon with hemorrhage C. difficile colitis Cerebral aneurysm Diverticulosis Fluid overload GI bleed Esophageal variceal banding on 2 occasions in the past, EGD colonoscopy October 2015 upper endoscopy showed esophageal varices with no bleeding or stigmata of bleeding. Colonoscopy showed multiple AVMs in the ascending and proximal transverse colon which were cauterized. Extensive diverticulosis with internal and external hemorrhoids were noted. MENARD (nonalcoholic steatohepatitis) Portal hypertension EGD esophageal banding on 03/25/16 she has been transfused multiple times Type 2 diabetes mellitus Surgical History S/P endoscopy Family History Other Family history non-contributory Social History Smoking and tobacco status: never smoked Alcohol intake: never Housing: House Vitals/I&O/Wt Last Vital Signs Temp 98.2 F 08/23/21 08:00 Pulse 114 H 08/23/21 08:00 Resp 17 08/23/21 08:00 BP 130/82 08/23/21 08:00 Pulse Ox 92 08/23/21 08:00 08/22/21 08/23/21 08/23/21 22:59 06:59 14:59 Intake Total 480 / 731.25 Output Total 0 / 0 Balance 480 / 731.25 0 / 731.25 Weight last 48 hrs Weight 146 lb Weight 150 lb Physical Exam Narrative: HEENT: Normocephalic Eye: Sclera /conjunctiva normal Abdomen: Soft to palpation, distended, nontender Neurological: Oriented to place person and time Skin: Intact, no lesions appreciated on gross exam Data : 08/23/21 03:52 08/23/21 03:52 A&P Assessment and plan (1) Lower GI bleed: The patient is scheduled for colonoscopy under MAC. The procedure risks and benefits, including infection, bleeding and bowel injury, has been explained to the patient, who has consented to the procedure. Information about the prep has been provided to the patient. 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
--- NOTE | 2021-08-23 08:23 | PC.NURSE ---
Notified GI that Dr. Saleem wants a tap water enema this morning.
--- NOTE | 2021-08-23 09:57 | PC.CHAP ---
Pastoral Care Encounter/Spiritual Assessment Type of Contact [] Declined instrument mechanic weapons system visit [] Patient/Family/Request visit [] Outpatient visit [] Follow-up visit [] Physician referral [] Code/Alert [x] Routine visit [] Staff referral [] Actively dying [] Patient sleeping [] Family support [] [x] Out of room [] Palliative care [] [] Receiving care in room [] Pre-surgical visit [] Trauma [] Long length of stay [] ICU visit [] Other: Relational/Emotional Strength [] Patient feels connected with others/family/visitors/staff [] Distress [] Loneliness/isolation [] Abandonment Spirituality of Patient [] Person of Radha [] Attends Confucianism of their Radha [] Believes in Prayer [] Reads Bible or Advent materials [] There are Spiritual issues to be addressed [place] [employer] [place] Interventions [] Prayer [] Active listening [] Non-anxious presence [] Spiritual/emotional support [] Crisis/trauma care [] Spiritual counseling [] Bereavement support [] Provided bereavement packet [] Provided Bible/devotional materials [] Provided toy/stuffed animal, coloring book to patient or family member [] Provided Communion [] Anointing/[place] [] Salvation [] Completed spiritual assessment [] Other: Impact on Illness or Injury [] Angry [] Fearful [] Anxious [] Often cries [] Exhaustion [] Unable to work [] Unable to attend yazidism [] Unable to walk/stand [] Unable to read [] Unable to drive [] Unable to eat/drink [] Unable to sleep [] Unable to be with family [] Patient intubated [] Other: Summary Time spent with patient
--- NOTE | 2021-08-23 10:12 | ANE.PACU2 ---
Inpatient post-anesthesia follow up: Airway intact: Yes Vital signs: Temperature 97.4 F Pulse Rate 84 Respiratory Rate 16 Blood Pressure 129/64 Pulse Oximetry 95 Oxygen Delivery Me thod Room Air Oxygen Flow Rate 2 Fraction of Inspir ed Oxygen Hydration adequate: Yes Nausea and vomiting: No Pain level: 1 Mental status: Baseline
--- NOTE | 2021-08-23 10:47 | PC.NURSE ---
Patient returned from GI at this time. Patient has hearing aid in but charging box is still in GI lab at this time. Patient is resting in bed at this time.
[2021-08-23 10:57] LABS: Hemoglobin 8.4 g/dL (11.5-15.3)
--- NOTE | 2021-08-23 12:56 | PC.NURSE ---
Patient's hearing aid graphic production artist brought back from GI lab
[2021-08-23 12:57] LABS: Glucose Point of Care 142 mg/dL (70-110)
--- NOTE | 2021-08-23 13:49 | P.PN_ITS ---
Subjective Subjective: 56-year-old female with history of Lloyd cirrhosis comes in with ascites she also had bright red blood per rectum and a dropping hematocrit evaluated by EGD and colonoscopy overnight which were unremarkable except for mild nonbleeding varices and present but not bleeding hemorrhoids. Patient states her abdomen is bloated. She denies ever being a heavy alcohol user. Vitals/I&O/Wt Last Vital Signs Temp 98.3 F 08/23/21 11:28 Pulse 86 08/23/21 11:28 Resp 16 08/23/21 11:28 BP 133/65 08/23/21 11:28 Pulse Ox 94 08/23/21 11:28 08/22/21 08/23/21 08/23/21 22:59 06:59 14:59 Intake Total 480 / 731.25 600 / 600 Output Total 0 / 0 Balance 480 / 731.25 0 / 731.25 600 / 600 Weight last 48 hrs Weight 66.224 kg Weight 68.039 kg Physical Exam Narrative: General well-developed chronically ill-appearing female with abdominal distention. CV regular rate and rhythm Lungs crackles in both bases Abdomen distended soft nontender Calves no tenderness or pretibial edema Mentation alert and oriented x3 Skin warm and dry however there are some spider telangiectasias over the chest Data : 08/23/21 10:50 08/23/21 03:52 A&P Assessment and plan (1) Lower GI bleed: Mild internal hemorrhoid bleeding. No other active sites were found either Status: Acute (2) AVM (arteriovenous malformation) of colon with hemorrhage: Not actively bleeding Status: Acute (3) Abdominal ascites: Plan for paracentesis tomorrow. She has had recurring ascites. I am going to change her diuretics to Bumex 2 mg twice a day, metolazone 5 mg daily and spironolactone 25 mg daily starting today Status: Acute (4) Liver cirrhosis secondary to nonalcoholic steatohepatitis (LLOYD): She has ammonia level 59. Will give magnesium for mildly low magnesium level and also to promote stooling. Add lactulose 1 dose daily mentation has been clear. Status: Acute (5) Portal hypertension: History of esophageal varices however they were not actively bleeding at this time Status: Acute Attestations Medical Necessity Statement*: Additional monitoring for hematocrit stability and response to diuretics. 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
[2021-08-23] MEDS: bumetanide 1 mg Tablet 2 MG PO (14:20)
[2021-08-23] MEDS: metOLazone 5 MG Tablet PO (14:21)
[2021-08-23] MEDS: spironolactone 25 mg Tablet PO (14:21)
[2021-08-23 17:04] LABS: Glucose Point of Care 181 mg/dL (70-110)
[2021-08-23 21:00] LABS: Glucose Point of Care 229 mg/dL (70-110)
[2021-08-23] MEDS: insulin lispro 100 unit/1 mL SUBCUT (21:31)
[2021-08-24] VITALS: BP 155/74; PULSE 90; RESP 14; TEMP 37; O2SAT 95
[2021-08-24] MEDS: sucralfate 1 gm Tablet PO ×4 (01:45→20:52)
[2021-08-24 03:59] LABS: Hematocrit 26.1 % (37.0-47.0); Hemoglobin 7.8 g/dL (11.5-15.3); Mean Corpuscular HGB Conc 29.9 g/dL (30.0-36.0); Mean Corpuscular Hemoglobin 23.1 pg (28.0-34.0); Mean Corpuscular Volume 77.4 fl (81-99); Mean Platelet Volume 8.2 fL (7.4-10.4); Platelet Count 229 10^3/cmm (130-400); Red Blood Count 3.37 10^6/uL (4.1-5.3); Red Cell Distribution Width 16.6 % (12.1-15.1); White Blood Count 3.4 10^3/uL (4.0-10.0)
[2021-08-24 04:00] VITALS: BP 129/60; PULSE 83; RESP 16; TEMP 36.9; O2SAT 96
[2021-08-24 04:17] LABS: Blood Urea Nitrogen 11 mg/dL (8-23); Calcium 8.1 mg/dL (8.5-10.5); Carbon Dioxide 18 mmol/L (22-29); Chloride 97 mmol/L (98-107); Creatinine Clr Calc Pharmacy 56.0146; Glucose 112 mg/dL (65-115); Magnesium 1.8 mg/dL (1.7-2.3); Osmolality Calculated 264 mOsm/kg (285-295); Sodium 127 mmol/L (136-145)
[2021-08-24 04:24] LABS: INR 1.49 (0.8-1.2)
[2021-08-24 04:52] LABS: Absolute Eosinophils 0.1 10^3/cmm (0.0-0.7); Absolute Neutrophil 2.3 10^3/cmm (1.4-6.5); Absolute Segmented Neutrophil 2.3 10/cmm (1.6-7.1); Eosinophils 4 %; Lymphocytes 27 %; Lymphocytes Absolute 0.9 10^3/cmm (1.2-3.4); Platelet Estimate Normal (Normal); Segmented Neutrophils 68 %; Total Cells Counted 100 (0-100)
--- NOTE | 2021-08-24 07:39 | PC.NURSE ---
Informed Dr. Christopher of sodium level of 127 via VOALTE this morning.
[2021-08-24 08:00] VITALS: BP 132/60; PULSE 85; RESP 16; TEMP 36.8; O2SAT 91
--- NOTE | 2021-08-24 08:00 | US_ITS ---
WS: [id number] INDICATION: Ascites TECHNIQUE: Ultrasound abdomen limited for possible paracentesis FINDINGS: All 4 quadrants were surveyed. Only a small amount of ascites. US/US abdomen lmt fluid [id number] IMPRESSION: Insufficient fluid for paracentesis
[2021-08-24 08:47] LABS: Glucose Point of Care 112 mg/dL (70-110)
[2021-08-24 08:57] LABS: Glucose Point of Care 123 mg/dL (70-110)
[2021-08-24] MEDS: metOLazone 5 MG Tablet PO (10:57)
[2021-08-24] MEDS: bumetanide 1 mg Tablet 2 MG PO ×2 (10:57→18:18)
[2021-08-24] MEDS: pantoprazole DR 40 mg Tablet PO (10:58)
[2021-08-24] MEDS: lactulose oral liq 20 gm/30 mL UDC 10 GM PO (10:58)
[2021-08-24] MEDS: spironolactone 25 mg Tablet PO ×2 (10:58→18:18)
--- NOTE | 2021-08-24 11:04 | PM.PN ---
Subjective Subjective: 75-year-old female with Lloyd steatohepatitis and cirrhosis has never been a smoker or drinker. She had EGD and colonoscopy showing no acute bleeding but she is iron deficient Vitals/I&O/Wt Last Vital Signs Temp 98.3 F 08/24/21 08:00 Pulse 85 08/24/21 08:00 Resp 16 08/24/21 08:00 BP 132/60 08/24/21 08:00 Pulse Ox 91 08/24/21 08:00 08/23/21 08/24/21 08/24/21 22:59 06:59 14:59 Intake Total 720 / 1460 0 / 1460 Balance 720 / 1460 0 / 1460 Physical Exam Narrative: General well-developed well-nourished thin female with abdominal ascites. Patient is very hard of hearing and I return to when she had her hearing aids and was able to communicate with her much better. CV regular rate and rhythm Lungs clear to auscultation bilaterally Abdomen positive bowel sounds soft mild distention much less than yesterday Calves no tenderness pedal edema Data : 08/24/21 03:50 08/24/21 03:50 Other Labs: Iron level 13 TIBC 163 percent saturation is 7.9 A&P Assessment and plan (1) Portal hypertension: Patient with ammonia level 59. She is not confused but I do not think she would be a very good candidate for TIPS procedure as there is potential for hepatic encephalopathy. She last had varices banding 03/25/2016. I think her recurrent anemia is not due to the varices but rather due to AVM Status: Acute (2) Liver cirrhosis secondary to nonalcoholic steatohepatitis (LLOYD): Continue to follow-up with your liver specialist. Start lactulose 10 cc daily Status: Acute (3) AVM (arteriovenous malformation) of colon with hemorrhage: Not actively bleeding this admission however she is iron deficiency anemic Status: Acute (4) Iron deficiency anemia secondary to blood loss (chronic): Replace with iron sucrose 500 mg today IV continue with oral preparation outpatient Status: Acute (5) Ascites: Therapeutic paracentesis planned for today by Dr. Saleem. I change the furosemide 60 mg daily to Bumex 2 mg twice a day and added Zaroxolyn 5 mg daily. She had significant diuresis overnight. I suspect that she will be able to be managed with medications outpatient if her kidney function is closely monitored while on the diuretics at increased dose. Status: Acute Attestations Medical Necessity Statement*: Will receive iron sucrose and a therapeutic paracentesis today. Diuretics for ascites being adjusted. 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
[2021-08-24 11:35] VITALS: BP 125/57; PULSE 87; RESP 16; TEMP 36.8; O2SAT 94
[2021-08-24 12:15] LABS: Glucose Point of Care 124 mg/dL (70-110)
[2021-08-24] MEDS: iron sucrose 500 MG in sodium chloride 0.9% 250 ML 68.75 MG IV (12:31)
[2021-08-24] MEDS: phytonadione (ADULT) 10 mg/mL Ampule 1 mL PO (13:41)
[2021-08-24 16:00] VITALS: BP 135/65; PULSE 92; RESP 16; TEMP 37.1; O2SAT 92
[2021-08-24 17:27] LABS: Glucose Point of Care 154 mg/dL (70-110)
[2021-08-24] MEDS: magnesium oxide 400 mg tablet PO (18:18)
[2021-08-24] MEDS: insulin lispro 100 unit/1 mL SUBCUT ×2 (18:19→21:55)
[2021-08-24 19:54] VITALS: BP 128/67; PULSE 94; RESP 17; TEMP 36.8
[2021-08-24 21:28] LABS: Glucose Point of Care 168 mg/dL (70-110)
[2021-08-25] VITALS: BP 123/65; PULSE 90; RESP 14; TEMP 37.4
[2021-08-25] MEDS: sucralfate 1 gm Tablet PO ×3 (01:54→13:44)
[2021-08-25] MEDS: acetaminophen 325 mg Tablet 650 MG PO (01:54)
[2021-08-25 03:57] VITALS: BP 100/58; PULSE 80; RESP 15; TEMP 36.9; O2SAT 93
[2021-08-25 04:54] LABS: Eosinophils % 0.8 %; Hematocrit 25.5 % (37.0-47.0); Hemoglobin 7.8 g/dL (11.5-15.3); Lymphocytes # 0.9 10^3/uL (0.8-4.8); Lymphocytes % 23.3 %; Mean Corpuscular HGB Conc 30.6 g/dL (30.0-36.0); Mean Corpuscular Hemoglobin 22.7 pg (28.0-34.0); Mean Corpuscular Volume 74.3 fl (81-99); Mean Platelet Volume 8.3 fL (7.4-10.4); Monocytes # 0.5 10^3/uL (0.2-0.9); Monocytes % 14.1 %; Neutrophils % 60.3 %; Nucleated Red Blood Cells % 0 %; Platelet Count 244 10^3/cmm (130-400); Red Blood Count 3.43 10^6/uL (4.1-5.3); Red Cell Distribution Width 16.3 % (12.1-15.1); White Blood Count 3.8 10^3/uL (4.0-10.0)
[2021-08-25 06:55] LABS: Glucose Point of Care 109 mg/dL (70-110)
[2021-08-25 07:56] VITALS: BP 117/58; PULSE 82; RESP 12; TEMP 36.3; O2SAT 97
[2021-08-25] MEDS: metOLazone 5 MG Tablet PO (08:50)
[2021-08-25] MEDS: magnesium oxide 400 mg tablet PO (08:50)
[2021-08-25] MEDS: spironolactone 25 mg Tablet PO (08:50)
[2021-08-25] MEDS: pantoprazole DR 40 mg Tablet PO (08:51)
[2021-08-25] MEDS: bumetanide 1 mg Tablet 2 MG PO (08:51)
[2021-08-25] MEDS: lactulose oral liq 20 gm/30 mL UDC 10 GM PO (08:56)
--- NOTE | 2021-08-25 09:17 | PC.SOCIAL ---
IMM Update Pg. 2 of IMM updated and reviewed with patient, who verbalized understanding. Copy provided.
[2021-08-25 10:00] VITALS: BMI 25.5
[2021-08-25 10:19] LABS: Alanine Aminotransferase 6 U/L (0-33); Albumin Level 2.8 g/dL (3.5-5.2); Alkaline Phosphatase 140 IU/L (35-105); Aspartate Amino Transferase 14 U/L (0-32); Blood Urea Nitrogen 10 mg/dL (8-23); Calcium 8.4 mg/dL (8.5-10.5); Carbon Dioxide 21 mmol/L (22-29); Chloride 91 mmol/L (98-107); Globulin 4.1 g/dL (1.3-4.6); Glucose 155 mg/dL (65-115); Magnesium 1.4 mg/dL (1.7-2.3); Osmolality Calculated 266 mOsm/kg (285-295); Sodium 127 mmol/L (136-145); Total Bilirubin 0.8 mg/dL (0.15-1.2); Total Protein 6.9 g/dL (6.6-8.7)
--- NOTE | 2021-08-25 11:26 | PM.DCS ---
Discharge Providers Date of Admission: 08/22/21 05:38 Date of Discharge: August 25, 2021 Attending Provider at Admission: Claude Mcguire DO Attending Provider at Discharge: Alonso Christopher MD Consults: Kevin Saleem MD Diagnoses at Discharge Discharge Diagnosis (1) Portal hypertension: Details from hospital stay: Unchanged but no active bleeding this visit continue PPI discontinue Carafate Status: Acute Permanent problem details: EGD esophageal banding on 03/25/16 she has been transfused multiple times (2) Liver cirrhosis secondary to nonalcoholic steatohepatitis (LLOYD): Details from hospital stay: Stable patient is a nondrinker Status: Acute (3) AVM (arteriovenous malformation) of colon with hemorrhage: Details from hospital stay: No hemorrhage this visit from the AVM. She did have some internal hemorrhoids also not actively bleeding avoid suppositories treat bowels with lactulose primarily due to ammonia level 59 Status: Acute (4) Iron deficiency anemia secondary to blood loss (chronic): Details from hospital stay: Patient with known iron deficiency anemia proven again on labs and consistent with her recurring GI blood loss. Continue with PPI although her varices were mild and not bleeding this visit. She was given 500 mg IV iron sucrose yesterday and tolerated it well also given vitamin K 10 mg p.o. x1 for INR 1.5 which is chronic for her Status: Acute (5) Ascites: Details from hospital stay: Patient did not need paracentesis as she responded to diuretics. I gave Bumex 2 mg twice a day metolazone 5 mg daily and spironolactone 50 mg daily. Sodium dropped to 127 and her belly is soft. Decrease Bumex to 2 mg a day metolazone to 2.5 mg daily follow-up labs in 2 days Status: Acute Reason for Visit Reason for Visit: ABD PAIN Brief History: Presumably due to ascites. No signs of infection Hospital Course Hospital Course 75-year-old female quite hard of hearing admitted for abdominal pain. She had tense ascites and some blood in her stool. EGD and colonoscopy by Dr. Saleem showed an active and mild esophageal varices on EGD. There was internal hemorrhoids not bleeding and no blood in the colon. Patient received IV iron sucrose 500 mg and tolerated it well. Patient responded well to diuretics and therefore did not require therapeutic paracentesis. No signs of infection furosemide was changed to Bumex 2 mg daily plus metolazone 2.5 mg daily. Monitor closely for overdiuresis. Physical Exam Narrative: General well-developed well-nourished thin female with abdominal ascites. Patient is very hard of hearing and I return to when she had her hearing aids and was able to communicate with her much better. CV regular rate and rhythm Lungs clear to auscultation bilaterally Abdomen positive bowel sounds soft not distended Calves no tenderness pedal edema Discharge Data Studies Completed and Pending Completed Studies During Hospitalization Category Date Time Status XR KUB portable [id number] Stat Exams 08/22/21 03:09 Completed US abdomen lmt fluid [id number] Routine Ultrasound 08/24/21 08:00 Completed Pending at discharge Category Date Time Status COVID [SARS Covid-2 Antigen] Routine Lab 08/25/21 10:19 Uncollected Urinalysis and Microscopic Routine Lab 08/23/21 13:35 Uncollected Radiology Impressions KUB X-Ray 08/22/21 03:09 IMPRESSION: Centralization of the bowel loops possibly secondary to ascites. Abdomen Ultrasound 08/24/21 08:00 IMPRESSION: Insufficient fluid for paracentesis Laboratory Results WBC 3.8 10^3/uL (4.0-10.0) L 08/25/21 04:26 RBC 3.43 10^6/uL (4.1-5.3) L 08/25/21 04:26 Hgb 7.8 g/dL (11.5-15.3) L 08/25/21 04:26 Hct 25.5 % (37.0-47.0) L 08/25/21 04:26 MCV 74.3 fl (81-99) L 08/25/21 04:26 MCH 22.7 pg (28.0-34.0) L 08/25/21 04:26 MCHC 30.6 g/dL (30.0-36.0) 08/25/21 04:26 RDW 16.3 % (12.1-15.1) H 08/25/21 04:26 Plt Count 244 10^3/cmm (130-400) 08/25/21 04:26 MPV 8.3 fL (7.4-10.4) 08/25/21 04:26 Neut % (Auto) 60.3 % 08/25/21 04:26 Lymph % (Auto) 23.3 % 08/25/21 04:26 [place] % (Auto) 14.1 % 08/25/21 04:26 Eos % (Auto) 0.8 % 08/25/21 04:26 Baso % (Auto) 1.0 % 08/25/21 04:26 Neut # (Auto) 2.30 10^3/uL (1.8-7.7) 08/25/21 04:26 Lymph # (Auto) 0.9 10^3/uL (0.8-4.8) 08/25/21 04:26 [place] # (Auto) 0.5 10^3/uL (0.2-0.9) 08/25/21 04:26 Eos # (Auto) 0.0 10^3/uL (0.0-0.8) 08/25/21 04:26 Baso # (Auto) 0.0 10^3/uL (0.0-0.1) 08/25/21 04:26 Nucleated RBC % (auto) 0 % 08/25/21 04:26 Total Counted 100 (0-100) 08/24/21 03:50 Atypical Lymphs % 0.0 % (0-5) 08/24/21 03:50 Absolute Neutrophils 2.3 10^3/cmm (1.4-6.5) 08/24/21 03:50 Segmented Neutrophils 68 % 08/24/21 03:50 Abs Segm Neuts (Man) 2.3 10/cmm (1.6-7.1) 08/24/21 03:50 Band Neutrophils 0.0 % 08/24/21 03:50 Abs Band Neuts (Man) 0.0 10^3/cmm (0.0-1.2) 08/24/21 03:50 Absolute Lymphocytes 0.9 10^3/cmm (1.2-3.4) L 08/24/21 03:50 Lymphocytes (Manual) 27 % 08/24/21 03:50 Monocytes (Manual) 1.0 % 08/24/21 03:50 Absolute Monocytes 0.0 10^3/cmm (0.1-0.6) L 08/24/21 03:50 Eosinophils (Manual) 4 % 08/24/21 03:50 Absolute Eosinophils 0.1 10^3/cmm (0.0-0.7) 08/24/21 03:50 Basophils (Manual) 0.0 % 08/24/21 03:50 Absolute Basophils 0.0 10^3/cmm (0.0-0.2) 08/24/21 03:50 Nucleated RBCs # 0.0 /100WBC 08/25/21 04:26 Platelet Estimate Normal (Normal) 08/24/21 03:50 PT 18.40 SECONDS (12.1-14.9) H 08/24/21 03:50 INR 1.49 (0.8-1.2) H 08/24/21 03:50 APTT 35.2 SECONDS (23.9-36.7) 08/22/21 03:07 Sodium 127 mmol/L (136-145) L 08/25/21 09:43 Potassium 4.0 mmol/L (3.5-5.1) 08/25/21 09:43 Chloride 91 mmol/L (98-107) L 08/25/21 09:43 Carbon Dioxide 21 mmol/L (22-29) L 08/25/21 09:43 Anion Gap 19.0 (5-19) 08/25/21 09:43 BUN 10 mg/dL (8-23) 08/25/21 09:43 Creatinine 0.6 mg/dL (0.5-0.9) 08/25/21 09:43 GFR Calculation Not Reportable 08/25/21 09:43 Glucose 155 mg/dL (65-115) H 08/25/21 09:43 POC Glucose 109 mg/dL (70-110) 08/25/21 06:45 Calculated Osmolality 266 mOsm/kg (285-295) L 08/25/21 09:43 Calcium 8.4 mg/dL (8.5-10.5) L 08/25/21 09:43 Magnesium 1.4 mg/dL (1.7-2.3) L 08/25/21 09:43 Iron 13 ug/dL (37-145) L 08/22/21 03:00 TIBC 163 mcg/dl 08/22/21 03:00 % Saturation 7.9 % (20-50) L 08/22/21 03:00 Unsat Iron Binding 150 ug/dL (112-347) 08/22/21 03:00 Ferritin 79 ng/mL (15-150) 08/22/21 03:00 Total Bilirubin 0.8 mg/dL (0.15-1.2) 08/25/21 09:43 AST 14 U/L (0-32) 08/25/21 09:43 ALT 6 U/L (0-33) 08/25/21 09:43 Alkaline Phosphatase 140 IU/L (35-105) H 08/25/21 09:43 Total Protein 6.9 g/dL (6.6-8.7) 08/25/21 09:43 Albumin 2.8 g/dL (3.5-5.2) L 08/25/21 09:43 Globulin 4.1 g/dL (1.3-4.6) 08/25/21 09:43 Lipase 35 U/L (13-60) 08/22/21 03:00 Blood Type O Positive 08/22/21 05:26 Rho(D) Type Positive 08/22/21 05:26 Antibody Screen Negative 08/22/21 05:26 Vitals Last Vital Signs Temp 97.4 F L 08/25/21 07:56 Pulse 82 08/25/21 07:56 Resp 12 08/25/21 07:56 BP 117/58 08/25/21 07:56 Pulse Ox 97 08/25/21 07:56 Discharge Plan Discharge Patient Disposition: Xfer SNF Condition: Stable Prescriptions: New bumetanide 1 mg Tablet 2 mg PO DAILY Qty: 60 0RF lactulose 20 gram/30 mL Solution 10 g PO DAILY Qty: 450 0RF MagOx 400 mg (241.3 mg magnesium) tablet 400 mg PO BID Qty: 60 0RF metolazone 2.5 mg tablet 2.5 mg PO DAILY Qty: 30 0RF Continued ferrous sulfate 325 mg (65 mg iron) Tablet 325 mg PO BID@,17 0RF insulin lispro [Humalog KwikPen Insulin] 100 unit/mL Insulin Pen See Rx Instructions .ROUTE .COMPLEX 0RF Rx Instructions: sliding scale before meals and at bedtime 140-175=2 units 176-200=3 units 201-250=5 units 251-299=7 units 300 plus =9 units polyethylene glycol 3350 17 gram/dose Powder 17 g PO DAILY@07 0RF mirtazapine 7.5 mg tablet 7.5 mg PO BEDTIME@19 0RF melatonin 5 mg Tablet 5 mg PO BEDTIME@19 0RF acetaminophen 500 mg Tablet 1,000 mg PO Q6H PRN (Reason: Pain) 0RF magnesium hydroxide [Milk of Magnesia] 400 mg/5 mL Suspension 30 ml PO DAILY PRN (Reason: Constipation) 0RF Lantus Solostar U-100 Insulin 100 unit/mL (3 mL) Insulin Pen 10 unit SUBCUT DAILY@08 0RF nitroglycerin [Nitrostat] 0.4 mg Tablet, Sublingual 0.4 mg SUBLINGUAL Q5M PRN (Reason: Chest Pain) 0RF Rx Instructions: do not exceed 3 doses per episode omeprazole 40 mg capsule,delayed release(DR/EC) 40 mg PO BID@07,17 0RF spironolactone 25 mg tablet 50 mg PO DAILY@07 0RF ondansetron HCl 8 mg Tablet 8 mg PO Q8H PRN (Reason: Nausea) 0RF tramadol 50 mg Tablet 50 mg PO Q6H PRN (Reason: Pain) 0RF Discontinued buspirone 5 mg tablet 5 mg PO DAILY@07 0RF bethanechol chloride 10 mg Tablet See Rx Instructions .ROUTE .COMPLEX 0RF Rx Instructions: 10 mg orally before meals and at bedtime @07:30,12:30,17:30 and 19:30 bisacodyl 10 mg Suppository 10 mg HI DAILY PRN (Reason: Constipation) 0RF Rx Instructions: may give for mom failure or may give tablets Fleet Enema 19-7 gram/118 mL Enema 118 ml HI DAILY PRN (Reason: Constipation) 0RF Rx Instructions: may give for bisacodyl failure if no results contact bisacodyl 5 mg Tablet 20 mg PO DAILY PRN (Reason: Constipation) 0RF Rx Instructions: may give for mom failure or may give suppository sennosides-docusate sodium [Senna-S] 8.6-50 mg Tablet 1 tab-cap PO BID@07,17 0RF furosemide 40 mg Tablet 60 mg PO QAM Qty: 60 3RF amlodipine 10 mg tablet 10 mg PO DAILY@07 0RF Discharge Orders: Discharge Order (Routine); Ordered 08/25/21 Ordered By: Alonso Christopher Discharge Diet: Diabetic Discharge Activity: Resume usual activity Patient Instructions: Constipation (ED), Ascites (ED), Anemia (ED), GI Discharge Instructions Activity Restrictions/Additional Instructions: Blood count should be rechecked on Monday (CBC). If fluid is to be drained from the belly, it must be done as an outpatient during the week. There does not appear to be emergent need for this this morning. Constipation is resolved in the ER. Return for fever, vomiting, blood in the stool, worsening pain, any other concerning symptoms. Discharge Attestations Time Spent in Discharge Care*: greater than 30 min Specific Discharge Activities: Other discharge activites (optional): BMP and magnesium in 2 days and follow-up with your primary intermediate facility provider Time Spent in Smoking Cessation: Patient is non-smoker and nondrinker for her whole life Status at Discharge: Cognitive status at discharge: cognitively intact, Behavioral status at discharge: cooperative, Quality Metrics Clinical Quality Measures [ No reported AMI, CVA or VTE this stay] Coding Level of Care Code Acute Chg FW DC note Diagnoses Portal hypertension K76.6 Liver cirrhosis secondary to nonalcoholic steatohepatitis (LLOYD) K75.81; K74.60 AVM (arteriovenous malformation) of colon with hemorrhage K55.21 Iron deficiency anemia secondary to blood loss (chronic) D50.0 Ascites R18.8
[2021-08-25 11:33] VITALS: BP 104/61; PULSE 94; RESP 12; TEMP 37.2; O2SAT 98
[2021-08-25 11:47] LABS: Glucose Point of Care 163 mg/dL (70-110)
[2021-08-25] MEDS: insulin lispro 100 unit/1 mL SUBCUT (11:58)
[2021-08-25 12:50] LABS: SARS Covid-2 Antigen Negative (Negative)
[2021-08-25 15:33] VITALS: BP 109/53; PULSE 95; RESP 12; TEMP 36.4; O2SAT 93
--- NOTE | 2021-08-25 16:12 | PC.NURSE ---
Discharge Note Patient discharged to [facility] via EMS accompanied by EMS. Discharge instructions reviewed with patient and/or telemarketing representative. Mobile pharmacy medications and/or prescriptions provided. Belongings/home medications returned.
[2021-08-25 16:14] VITALS: BP 109/53; PULSE 95; RESP 12; TEMP 36.4; O2SAT 93
== END 2021-08-25 16:05 | disposition skilled nursing facility (03) | DRG 394 ==
LOC: ER 05:14 → MEDSURG 06:08
PROVIDERS: Internal Medicine; Surgery; Admitting Provider Internal Medicine; Emergency Provider Emergency Medicine; Visit Provider Internal Medicine
PROC: 0DJ08ZZ Inspection of Upper Intestinal Tract, Via Natural or Artificial Opening Endoscopic (ICD-10-PCS; CPT 43235; principal; 2021-08-23 08:00)
PROC: 0DJD8ZZ Inspection of Lower Intestinal Tract, Via Natural or Artificial Opening Endoscopic (ICD-10-PCS; CPT 45378; 2021-08-23 08:00)
DX: K64.8 Other hemorrhoids (principal); R18.8 Other ascites; K76.6 Portal hypertension; E87.1 Hypo-osmolality and hyponatremia; D68.9 Coagulation defect, unspecified; I85.10 Secondary esophageal varices without bleeding; D50.0 Iron deficiency anemia secondary to blood loss (chronic); K75.81 Nonalcoholic steatohepatitis (NASH); K74.60 Unspecified cirrhosis of liver; K57.30 Diverticulosis of large intestine without perforation or abscess without bleeding; E11.42 Type 2 diabetes mellitus with diabetic polyneuropathy; K59.00 Constipation, unspecified; F41.9 Anxiety disorder, unspecified; I25.10 Atherosclerotic heart disease of native coronary artery without angina pectoris; Z79.891 Long term (current) use of opiate analgesic; Z79.4 Long term (current) use of insulin; K55.20 Angiodysplasia of colon without hemorrhage
CPT/HCPCS: 36415; 36416; 43235; 45378; 74018; 76705; 80048; 80053; 82728; 82962; 83540; 83550; 83690; 83735; 84295; 85007; 85018; 85025; 85027; 85610; 85730; 86850; 86900; 87426; 96372; 99285; C9113; J1756; J1815; J2704; J3430; J7030; J7050

== ENCOUNTER → 2021-09-01 16:29 | Outpatient (BNVA) | payer MEDICARE, SELFPAY | PROVIDERS: Visit Provider Family Medicine | DX: R41.82 Altered mental status, unspecified (principal) | CPT/HCPCS: 81003; 87077; 87086; 87184 ==

== ENCOUNTER 2021-09-11 13:13 | Observation (INO) | payer MEDICARE, SELFPAY ==
[2021-09-11 13:25] VITALS: BP 111/59; PULSE 86; RESP 16; TEMP 36.4; O2SAT 100
[2021-09-11 13:46] LABS: Glucose Point of Care 153 mg/dL (70-110)
--- NOTE | 2021-09-11 14:05 | ECG_ITS ---
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 Measurements Intervals [place] Rate: 81 P: 60 AL: 186 QRS: -29 QRSD: 106 T: 75 QT: 400 QTc: 465 Interpretive Statements SINUS RHYTHM POSSIBLE ANTERIOR MYOCARDIAL INFARCTION , OF INDETERMINATE AGE Compared to ECG 07/06/2021 11:11:49 No significant changes Electronically Signed On 09-12-2021 13:03:24 CDT by Antonia Rene M.D. [id number]
--- NOTE | 2021-09-11 14:05 | XRR_ITS ---
PROCEDURE INFORMATION: Exam: XR Chest Exam date and time: 09/11/2021 2:09 PM Age: 75 years old Clinical indication: Cough and dyspnea; Patient HX: AMS; Additional info: Dyspnea/cough TECHNIQUE: Imaging protocol: Radiologic exam of the chest. Views: 1 view. COMPARISON: CR XR chest 1V portable [id number] 06/16/2021 11:07 AM FINDINGS: Lungs: No pulmonary vascular congestion, pulmonary edema or pneumonia. Pleural spaces: No pleural effusion or pneumothorax. Heart/Mediastinum: The cardiac silhouette is not enlarged. The mediastinal contours within normal limits when allowing for patient rotation. Bones/joints: Right humeral surgical neck fracture, age indeterminate. Associated right shoulder chondrocalcinosis. XR/XR chest 1V portable [id number] IMPRESSION: No pneumonia or heart failure.
--- NOTE | 2021-09-11 14:05 | CTR_ITS ---
PROCEDURE INFORMATION: Exam: CT Head Without Contrast Exam date and time: 09/11/2021 2:29 PM Age: 75 years old Clinical indication: Altered mental status/memory loss; Prior surgery; Additional info: AMS TECHNIQUE: Imaging protocol: Computed tomography of the head without contrast. Radiation optimization: All CT scans at this facility use at least one of these dose optimization techniques: automated exposure control; mA and/or kV adjustment per patient size (includes targeted exams where dose is matched to clinical indication); or iterative reconstruction. COMPARISON: CT head wo con* [id number] 05/05/2021 11:27 AM RADIATION DOSE METRICS: Total DLP (mGy-cm): 1095.7 FINDINGS: Limitations: Artifact from metallic hardware. Tubes, catheters and devices: Left cochlear implant. Medial right middle cranial fossa aneurysm clip. Brain: No acute appearing brain parenchymal abnormality. No intracranial hemorrhage. No extraaxial fluid collections. There is diffuse brain atrophy. Cerebral ventricles: No hydrocephalus. Paranasal sinuses: Mild mucoperiosteal thickening. Mastoid air cells: Postsurgical changes involving the left mastoid air cell complex. The right mastoid air cells are aerated. Bones/joints: Prior right frontotemporal craniotomy. Soft tissues: No acute soft tissue abnormality. CT/CT head wo con* [id number] IMPRESSION: No acute intracranial abnormality.
[2021-09-11 14:22] LABS: Hematocrit 24.8 % (37.0-47.0); Hemoglobin 7.7 g/dL (11.5-15.3); Lymphocytes # 0.7 10^3/uL (0.8-4.8); Lymphocytes % 23.3 %; Mean Corpuscular Hemoglobin 23.3 pg (28.0-34.0); Mean Corpuscular Volume 74.9 fl (81-99); Monocytes # 0.4 10^3/uL (0.2-0.9); Monocytes % 12.8 %; Neutrophils # 1.87 10^3/uL (1.8-7.7); Neutrophils % 61.2 %; Nucleated Red Blood Cells % 0 %; Platelet Count 200 10^3/cmm (130-400); Red Blood Count 3.31 10^6/uL (4.1-5.3); Red Cell Distribution Width 20.4 % (12.1-15.1); White Blood Count 3.1 10^3/uL (4.0-10.0)
[2021-09-11 14:43] LABS: Ammonia 66 umol/L (11-51)
[2021-09-11 14:44] LABS: Ketone (Acetest) Serum Negative (Negative)
[2021-09-11 14:52] LABS: Alanine Aminotransferase 7 U/L (0-33); Albumin Level 3.6 g/dL (3.5-5.2); Alkaline Phosphatase 142 IU/L (35-105); Blood Urea Nitrogen 48 mg/dL (8-23); Calcium 8.8 mg/dL (8.5-10.5); Carbon Dioxide 22 mmol/L (22-29); Chloride 99 mmol/L (98-107); Creatine Phosphokinase 44 U/L (26-192); Globulin 3.4 g/dL (1.3-4.6); Glucose 138 mg/dL (65-115); Lipase 67 U/L (13-60); Magnesium 2.1 mg/dL (1.7-2.3); Osmolality Calculated 293 mOsm/kg (285-295); Sodium 134 mmol/L (136-145); Total Bilirubin 0.6 mg/dL (0.15-1.2)
[2021-09-11 14:54] LABS: Lactic Sepsis W/Reflex 1.5 mmol/L (0.5-2.2)
[2021-09-11 14:56] LABS: Troponin(5th) Baseline 42 ng/L (0-10)
[2021-09-11 14:57] LABS: Anion Gap 17.6 (5-19); Aspartate Amino Transferase 28 U/L (0-32); Potassium 4.6 mmol/L (3.5-5.1)
--- NOTE | 2021-09-11 15:03 | ED_ITS ---
HPI - Altered Mental Status General: Chief Complaint: Altered Mental Status Stated Complaint: AMS Time Seen by Provider: 09/11/21 13:50 Source: old records reviewed Mode of arrival: EMS Limitations: altered mental status History of Present Illness: 75-year-old female presents emergency room she is essentially nonverbal at this time. She came from local group home via EMS report that we got from the group home with that she fell yesterday she is progressively worse and the normally she is conversant she is a full code. She is unable to contribute any thing to history when initially seen her. She is awake and opens her eyes and will follow a few simple commands but will not verbalize anything. Notes also reflect that normally she is ambulatory with assist and now she is not able to walk. Her BUN is elevated and reported that she had a UTI with cultures not yet back. MD complaint: altered mental status and confusion Onset (ago): unknown Severity: severe Consistency of symptoms: Getting Worse Review of Systems General: Reports: ROS unobtainable due to mental status PFSH ED PFSH: Medical History Abdominal ascites Abdominal pain Abnormal colonoscopy Anemia AVM (arteriovenous malformation) AVM (arteriovenous malformation) of colon with hemorrhage C. difficile colitis Cerebral aneurysm Diverticulosis Fluid overload GI bleed Esophageal variceal banding on 2 occasions in the past, EGD colonoscopy October 2015 upper endoscopy showed esophageal varices with no bleeding or stigmata of bleeding. Colonoscopy showed multiple AVMs in the ascending and proximal transverse colon which were cauterized. Extensive diverticulosis with internal and external hemorrhoids were noted. 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 (LLOYD) LLOYD (nonalcoholic steatohepatitis) Portal hypertension EGD esophageal banding on 03/25/16 she has been transfused multiple times Type 2 diabetes mellitus Surgical History S/P endoscopy Family History Other Family history non-contributory Social History Smoking and tobacco status: never smoked Alcohol intake: never Housing: House Physical Exam Const: GENERAL APPEARANCE: comfortable and well kempt NUTRITIONAL APPEARANCE: underweight ORIENTATION/CONSCIOUSNESS: Yes awake HENMT: COMMON NORMALS: normocephalic, atraumatic, EAC's normal and TM's normal bilaterally HEAD & SCALP: normocephalic and atraumatic FACE & SINUS: normal facial exam and face symmetric EXTERNAL AUDITORY CANAL: EAC's normal TYMPANIC MEMBRANE: TM's normal bilaterally MOUTH: Normal oral and palatal mucosa present, lip normal and tongue normal Eye: COMMON NORMALS: Equal, round and reactive pupils present, EOMs intact bilaterally, conjunctivae normal and no scleral icterus CONJUNCTIVA: Yes conjunctivae normal PUPIL: Yes Equal, round and reactive pupils present Neck/C-Spine: COMMON NORMALS: full ROM, no lymphadenopathy, supple and no men ingeal signs Resp: COMMON NORMALS: normal respiratory effort, No retractions, No use of accessory muscles and clear to auscultation bilaterally AUSCULTATION: clear to auscultation bilaterally Cardio: COMMON NORMALS: regular rate and regular rhythm RATE: regular rate RHYTHM: regular rhythm GI: COMMON NORMALS: Soft to palpation INSPECTION: Yes normal to inspection AUSCULTATION: Yes normoactive bowel sounds PALPATION: Yes Soft to palpation, No Tenderness to palpation present (GI) and No Guarding due to palpation present (GI) : COMMON NORMALS: Yes no CVA tenderness BLADDER/KIDNEY EXAM: Yes no CVA tenderness Back/Pelvis: COMMON NORMALS: no CVA tenderness Extremity: COMMON NORMALS: normal to inspection and full ROM Neuro: MENINGEAL SIGNS: Yes no meningeal signs Psych: APPEARANCE: Yes well kempt Course Vital Signs: Vital signs: Vital Signs Temperature 97.6 F 09/11/21 13:25 Pulse Rate 86 09/11/21 13:25 Respiratory Rate 16 09/11/21 13:25 Blood Pressure 111/59 09/11/21 13:25 Pulse Oximetry 100 09/11/21 13:25 MDM - Altered Mental Status Medical Decision Making Most of her history was obtained from old records. She is still pretty much nonverbal. Unfortunately no family available at the bedside.. She has a worsening cystitis. She is also anemic but is chronic. Think is largely in part due to her AVM and history of esophageal varices. Discussed Dr. [place] will admit started on Rocephin. Medical Records I reviewed the patient's medical records. Lab Data I reviewed the patient's lab results. : 09/11/21 13:40 09/11/21 13:40 Radiology Impressions Chest X-Ray 09/11/21 14:05 IMPRESSION: No pneumonia or heart failure. Head CT 09/11/21 14:05 IMPRESSION: No acute intracranial abnormality. Laboratory Results WBC 3.1 10^3/uL (4.0-10.0) L 09/11/21 13:40 RBC 3.31 10^6/uL (4.1-5.3) L 09/11/21 13:40 Hgb 7.7 g/dL (11.5-15.3) L 09/11/21 13:40 Hct 24.8 % (37.0-47.0) L 09/11/21 13:40 MCV 74.9 fl (81-99) L 09/11/21 13:40 MCH 23.3 pg (28.0-34.0) L 09/11/21 13:40 MCHC 31.0 g/dL (30.0-36.0) 09/11/21 13:40 RDW 20.4 % (12.1-15.1) H 09/11/21 13:40 Plt Count 200 10^3/cmm (130-400) 09/11/21 13:40 MPV 9.0 fL (7.4-10.4) 09/11/21 13:40 Neut % (Auto) 61.2 % 09/11/21 13:40 Lymph % (Auto) 23.3 % 09/11/21 13:40 [place] % (Auto) 12.8 % 09/11/21 13:40 Eos % (Auto) 1.0 % 09/11/21 13:40 Baso % (Auto) 1.0 % 09/11/21 13:40 Neut # (Auto) 1.87 10^3/uL (1.8-7.7) 09/11/21 13:40 Lymph # (Auto) 0.7 10^3/uL (0.8-4.8) L 09/11/21 13:40 [place] # (Auto) 0.4 10^3/uL (0.2-0.9) 09/11/21 13:40 Eos # (Auto) 0.0 10^3/uL (0.0-0.8) 09/11/21 13:40 Baso # (Auto) 0.0 10^3/uL (0.0-0.1) 09/11/21 13:40 Nucleated RBC % (auto) 0 % 09/11/21 13:40 Nucleated RBCs # 0.0 /100WBC 09/11/21 13:40 Sodium 134 mmol/L (136-145) L 09/11/21 13:40 Potassium 4.6 mmol/L (3.5-5.1) 09/11/21 13:40 Chloride 99 mmol/L (98-107) 09/11/21 13:40 Carbon Dioxide 22 mmol/L (22-29) 09/11/21 13:40 Anion Gap 17.6 (5-19) 09/11/21 13:40 BUN 48 mg/dL (8-23) H 09/11/21 13:40 Creatinine 1.1 mg/dL (0.5-0.9) H 09/11/21 13:40 GFR Calculation Not Reportable 09/11/21 13:40 Glucose 138 mg/dL (65-115) H 09/11/21 13:40 POC Glucose 153 mg/dL (70-110) H 09/11/21 13:43 Calculated Osmolality 293 mOsm/kg (285-295) 09/11/21 13:40 Lactic Acid 1.5 mmol/L (0.5-2.2) 09/11/21 13:40 Calcium 8.8 mg/dL (8.5-10.5) 09/11/21 13:40 Magnesium 2.1 mg/dL (1.7-2.3) 09/11/21 13:40 Total Bilirubin 0.6 mg/dL (0.15-1.2) 09/11/21 13:40 AST 28 U/L (0-32) 09/11/21 13:40 ALT 7 U/L (0-33) 09/11/21 13:40 Alkaline Phosphatase 142 IU/L (35-105) H 09/11/21 13:40 Ammonia 66 umol/L (11-51) H 09/11/21 14:18 Creatine Kinase 44 U/L (26-192) 09/11/21 13:40 Troponin T Baseline 42 ng/L (0-10) H 09/11/21 13:40 Total Protein 7.0 g/dL (6.6-8.7) 09/11/21 13:40 Albumin 3.6 g/dL (3.5-5.2) 09/11/21 13:40 Globulin 3.4 g/dL (1.3-4.6) 09/11/21 13:40 Lipase 67 U/L (13-60) H 09/11/21 13:40 Urine Color Dark yellow (Yellow) 09/11/21 14:40 Urine Appearance Sl hazy (CLEAR) 09/11/21 14:40 Urine pH 9 (5-7) H 09/11/21 14:40 Ur Specific [place] 1.015 (1.005-1.030) 09/11/21 14:40 Urine Protein Neg (Negative) 09/11/21 14:40 Urine Glucose (UA) Norm (Normal) 09/11/21 14:40 Urine Ketones Negative (Negative) 09/11/21 14:40 Urine Blood Neg (Negative) 09/11/21 14:40 Urine Nitrate Negative (Negative) 09/11/21 14:40 Urine Bilirubin Neg (Negative) 09/11/21 14:40 Prot Sulfosalicylic Acd Negative (Negative) 09/11/21 14:40 Urine Urobilinogen Norm mg/dL (Negative) 09/11/21 14:40 Ur Leukocyte Esterase 2+ (Negative) H 09/11/21 14:40 Urine RBC None /hpf (0-2) 09/11/21 14:40 Urine WBC >100 /hpf (0-5) H 09/11/21 14:40 Ur Squamous Epith Cells 5-10 /hpf (0-5) H 09/11/21 14:40 Amorphous Sediment Not Reportable 09/11/21 14:40 Urine Bacteria 2+ /hpf (NONE) H 09/11/21 14:40 Serum Ketones Negative (Negative) 09/11/21 13:40 Discharge Plan Discharge Patient Disposition: Admitted As Inpatient Clinical Impression: Cystitis, Encephalopathy Condition: Stable Prescriptions: No Action ferrous sulfate 325 mg (65 mg iron) Tablet 325 mg PO BID@,17 0RF insulin lispro [Humalog KwikPen Insulin] 100 unit/mL Insulin Pen See Rx Instructions .ROUTE .COMPLEX 0RF Rx Instructions: sliding scale before meals and at bedtime 140-175=2 units 176-200=3 units 201-250=5 units 251-299=7 units 300 plus =9 units polyethylene glycol 3350 17 gram/dose Powder 17 g PO DAILY@07 0RF mirtazapine 7.5 mg tablet 7.5 mg PO BEDTIME@19 0RF melatonin 5 mg Tablet 5 mg PO BEDTIME@19 0RF acetaminophen 500 mg Tablet 1,000 mg PO Q6H PRN (Reason: Pain) 0RF magnesium hydroxide [Milk of Magnesia] 400 mg/5 mL Suspension 30 ml PO DAILY PRN (Reason: Constipation) 0RF insulin glargine [Lantus Solostar U-100 Insulin] 100 unit/mL (3 mL) Insulin Pen 10 unit SUBCUT DAILY@08 0RF nitroglycerin [Nitrostat] 0.4 mg Tablet, Sublingual 0.4 mg SUBLINGUAL Q5M PRN (Reason: Chest Pain) 0RF Rx Instructions: do not exceed 3 doses per episode omeprazole 40 mg capsule,delayed release(DR/EC) 40 mg PO BID@07,17 0RF spironolactone 25 mg tablet 50 mg PO DAILY@07 0RF ondansetron HCl 8 mg Tablet 8 mg PO Q8H PRN (Reason: Nausea) 0RF tramadol 50 mg Tablet 50 mg PO Q6H PRN (Reason: Pain) 0RF bumetanide 1 mg Tablet 2 mg PO DAILY Qty: 60 0RF lactulose 20 gram/30 mL Solution 10 g PO DAILY Qty: 450 0RF magnesium oxide [MagOx] 400 mg (241.3 mg magnesium) tablet 400 mg PO BID Qty: 60 0RF metolazone 2.5 mg tablet 2.5 mg PO DAILY Qty: 30 0RF Coding Level of Care Code ED Optometric Technician for Chg Fwd Exam Comprehensive
[2021-09-11 15:07] LABS: Add Urine Microscopic? YES; Bilirubin Urine Neg (Negative); Blood Urine Neg (Negative); Glucose Urine UA Norm (Normal); Ketones Urine Negative (Negative); Leukocyte Esterase Urine 2+ (Negative); Nitrate Urine Negative (Negative); Protein Urine Neg (Negative); Specific Gravity, Urine 1.015 (1.005-1.030); Sulfosalicylic Acid Urine Negative (Negative); Urine Appearance SL Hazy (CLEAR); Urine Color Dark Yellow (Yellow); Urobilinogen Urine Norm (Negative); WBC Urine >100 /hpf (0-5); pH Urine 9 (5-7)
[2021-09-11 15:08] LABS: Add Urine Culture? Yes; Bacteria Urine 2+ /hpf
[2021-09-11] MEDS: cefTRIAXone 1,000 MG in sodium chloride 0.9% (plus) 50 ML 100 MG IV (15:30)
--- NOTE | 2021-09-11 15:46 | P.HP_ITS ---
Providers/Chief Complaint Chief Complaint: AMS History of Present Illness Martha Moore is a 75 year old female with a past medical history of Lloyd, liver cirrhosis, recurrent ascites, history of recurrent GI bleed, portal hypertension, history of esophageal varices, history of deconditioning, history of AV malformations, history of C. difficile colitis, history of coagulopathy, CAD, diabetes, insulin-dependent, history of cerebral aneurysm status post clipping, who presents [facility] due to altered mental status. Currently patient is alert to person, not to place, not to time, she does not follow commands, she falls back asleep, normotensive, on room air, normal sinus rhythm, most of history was obtained by longterm, longterm staff tell me that 2 weeks ago she was out working with physical therapy, she was alert and oriented x3, she is following commands, her mentation does fluctuate at times, but overall she is doing better, she did have a UTI, she has been on Macrobid, she also had fluid taken off of her paracentesis in late July, however last few days her mentation has been declining, she is becoming more forgetful, less responsive, increased confusion, she has had low-grade fevers, no nausea, no vomiting, no abdominal pain complaints, no sick contacts, no history of COVID, has a history of recurrent C. difficile, no diarrhea complaints does have a history of esophageal varices, no hemoptysis, no bloody or black stools Review of Systems General: Reports: ROS unobtainable due to mental status Medications/Allergies Home Medications Medication Instructions Recorded Confirmed Last Taken Type ferrous sulfate 325 mg (65 mg 325 mg PO BID@,06/11/21 09/11/21 09/11/21 History iron) tablet insulin lispro 100 unit/mL See Rx Instructions .ROUTE .COMPLEX 06/11/21 09/11/21 09/11/21 History subcutaneous pen (Humalog KwikPen (U-100) Insulin) melatonin 5 mg tablet 5 mg PO BEDTIME@06/11/21 09/11/21 09/10/21 History mirtazapine 7.5 mg tablet 7.5 mg PO BEDTIME@06/11/21 09/11/21 09/10/21 History polyethylene glycol 3350 17 17 g PO DAILY@06/11/21 09/11/21 09/11/21 History gram/dose oral powder acetaminophen 500 mg tablet 1,000 mg PO Q6H PRN 06/16/21 09/11/21 09/11/21 History insulin glargine 100 unit/mL (3 10 unit SUBCUT DAILY@08 06/16/21 09/11/21 0 09/11/21 History mL) subcutaneous pen (Lantus Solostar U-100 Insulin) magnesium hydroxide 400 mg/5 mL 30 ml PO DAILY PRN 06/16/21 09/11/21 Unknown History oral suspension (Milk of Magnesia) nitroglycerin 0.4 mg sublingual 0.4 mg SUBLINGUAL Q5M PRN 06/28/21 09/11/21 Unknown History tablet (Nitrostat) omeprazole 40 mg capsule,delayed 40 mg PO BID@,07/06/21 09/11/21 09/11/21 History release spironolactone 25 mg tablet 50 mg PO DAILY@07 07/06/21 09/11/21 09/11/21 History ondansetron HCl 8 mg tablet 8 mg PO Q8H PRN 08/22/21 09/11/21 Unknown History tramadol 50 mg tablet 50 mg PO Q6H PRN 08/22/21 09/11/21 Unknown History bumetanide 1 mg tablet 2 mg PO DAILY #60 tab NS 08/25/21 09/11/21 09/11/21 Rx lactulose 20 gram/30 mL oral 10 g (15 mL) PO DAILY #450 ml 08/25/21 09/11/21 09/11/21 Rx solution magnesium oxide 400 mg (241.3 mg 400 mg PO BID #60 tab 08/25/21 09/11/21 09/11/21 Rx magnesium) tablet (MagOx) metolazone 2.5 mg tablet 2.5 mg PO DAILY #30 tab 08/25/21 09/11/21 09/11/21 Rx Allergies Allergy/AdvReac Type Severity Reaction Status Date / Time aspirin Allergy Intermediate rash Verified 07/06/21 11:20 atropine Allergy Intermediate unknown Verified 07/06/21 11:20 ciprofloxacin Allergy ALGY-Rash Verified 07/06/21 11:20 hydrocodone Allergy Unknown Verified 07/06/21 11:20 iodine Allergy ALGY-Hives Verified 07/06/21 11:20 meperidine [From Demerol] Allergy ADR-Nausea Verified 07/06/21 11:20 Sulfa (Sulfonamide Allergy ALGY-Rash Verified 07/06/21 11:20 Antibiotics) PFSH Acute PFSH: Medical History Abdominal ascites Abdominal pain Abnormal colonoscopy Anemia AVM (arteriovenous malformation) AVM (arteriovenous malformation) of colon with hemorrhage C. difficile colitis Cerebral aneurysm Diverticulosis Fluid overload GI bleed Esophageal variceal banding on 2 occasions in the past, EGD colonoscopy 2015 upper endoscopy showed esophageal varices with no bleeding or stigmata of bleeding. Colonoscopy showed multiple AVMs in the ascending and proximal transverse colon which were cauterized. Extensive diverticulosis with internal and external hemorrhoids were noted. 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 (LLOYD) LLOYD (nonalcoholic steatohepatitis) Portal hypertension EGD esophageal banding on 03/25/16 she has been transfused multiple times Type 2 diabetes mellitus Surgical History S/P endoscopy Family History Other Family history non-contributory Social History Smoking and tobacco status: never smoked Alcohol intake: never Housing: House Vitals/I&O/Wt Last Vital Signs Temp 97.6 F 09/11/21 13:25 Pulse 86 09/11/21 13:25 Resp 16 09/11/21 13:25 BP 111/59 09/11/21 13:25 Pulse Ox 100 09/11/21 13:25 Physical Exam Const: COMMON NORMALS: no acute distress EXAM LIMITATIONS: altered mental status ORIENTATION/CONSCIOUSNESS: Yes awake, Yes oriented to person and Yes confused; not oriented to place and not oriented to time HENMT: COMMON NORMALS: normocephalic HEAD & SCALP: normocephalic Neck/C-Spine: COMMON NORMALS: no JVD Resp: COMMON NORMALS: normal respiratory effort, No retractions, No use of accessory muscles and clear to auscultation bilaterally AUSCULTATION: clear to auscultation bilaterally Cardio: COMMON NORMALS: regular rate, regular rhythm, S1 normal heart sound present and S2 normal heart sound present RATE: regular rate RHYTHM: regular rhythm HEART SOUNDS: S1 normal heart sound present and S2 normal heart sound present GI: COMMON NORMALS: Normal to inspection, nondistended, normoactive bowel sounds present, Soft to palpation, non-tender, No hepatosplenomegaly present, no masses and no bruits PALPATION: Yes Soft to palpation and Yes No hepatosplenomegaly present Extremity: COMMON NORMALS: no pedal edema Neuro: OTHER: Does not follow commands, alert to person, not to place, time Data : 09/11/21 13:40 09/11/21 13:40 Micro: Microbiology 09/11/21 15:14 Blood Culture - Preliminary Blood SPECIMEN COLLECTED 09/11/21 15:18 Blood Culture - Preliminary Blood SPECIMEN COLLECTED A&P Assessment and plan (1) Cystitis: Status: Acute (2) Encephalopathy: Status: Acute (3) Portal hypertension: Status: Acute (4) Liver cirrhosis secondary to nonalcoholic steatohepatitis (LLOYD): Status: Acute (5) AVM (arteriovenous malformation) of colon with hemorrhage: Status: Acute (6) Abdominal ascites: Status: Acute (7) C. difficile colitis: Status: Acute Plan Martha Moore is a 75 year old female with a past medical history of Lloyd, liver cirrhosis, recurrent ascites, history of recurrent GI bleed, portal hypertension, history of esophageal varices, history of deconditioning, history of AV malformations, history of C. difficile colitis, history of coagulopathy, CAD, diabetes, insulin-dependent, history of cerebral aneurysm status post clipping, who presents [facility] due to altered mental status. Altered mental status, likely sec to UTI, given history of multiple antibiotic therapies, he has ESBL risk factors, start Primaxin Ammonia level 66, start rifaximin, lactulose Type 2 diabetes mellitus, low-dose sliding scale Creatinine 1.1, gentle IV fluids History of Lloyd, liver cirrhosis -Monitor liver function, monitor INR History of esophageal varices, avoid blood thinners, avoid Lovenox History of cerebral aneurysm status post clipping Full code SCDs for DVT prophylaxis Attestations Medical Necessity Statement*: Patient requires hospitalization for altered mental status, UTI Coding Level of Care 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 difficile colitis A04.72
--- NOTE | 2021-09-11 15:56 | USR_ITS ---
PROCEDURE INFORMATION: Exam: US Retroperitoneal; Complete; Kidneys and Bladder Exam date and time: 09/11/2021 4:10 PM Age: 75 years old Clinical indication: Abnormal findings; Abnormal lab test; Abnormal kidney function lab tests; Additional info: UTI, AMS TECHNIQUE: Imaging protocol: Real-time ultrasound of the retroperitoneum with image documentation. Complete exam focused on the kidneys and bladder. COMPARISON: US abdomen lmt fluid [id number] 08/24/2021 11:31 AM FINDINGS: Right kidney: Right kidney measures 9.5 cm in length. Normal renal echotexture. No hydronephrosis. No cyst, mass, or calculus demonstrated. Left kidney: Left kidney measures 9.9 cm in length. Normal renal echotexture. No hydronephrosis. No cyst, mass, or calculus demonstrated. Aorta: Visualized portion of the aorta is normal in caliber. No aortic aneurysm demonstrated. Urinary bladder: Urinary bladder appears unremarkable. US/US renal BI* [id number] IMPRESSION: Unremarkable renal ultrasound examination. No hydronephrosis.
--- NOTE | 2021-09-11 16:05 | ECG_ITS ---
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 Measurements Intervals [place] Rate: 84 P: 49 DC: 185 QRS: -8 QRSD: 112 T: 89 QT: 384 QTc: 454 Interpretive Statements SINUS RHYTHM WITH OCCASIONAL ECTOPIC PREMATURE COMPLEXES POSSIBLE ANTERIOR MYOCARDIAL INFARCTION , OF INDETERMINATE AGE [30 ms Q WAVE IN V3/V4, OR R < 0.2 mV IN V4] MODERATE T-WAVE ABNORMALITY, CONSIDER LATERAL ISCHEMIA Compared to ECG 09/11/2021 14:01:33 T-wave abnormality now present Possible ischemia now present Myocardial infarct finding still present Electronically Signed On 09-12-2021 13:07:10 CDT by Anotnia Rene M.D. [id number]
[2021-09-11 16:58] LABS: Troponin 5 2HR 44.57 ng/L (0-10)
[2021-09-11 17:02] LABS: Troponin 5 2HR Delta 2.57 ABS# (0-10)
[2021-09-11 17:44] VITALS: BMI 21.8
[2021-09-11 17:51] LABS: Glucose Point of Care 128 mg/dL (70-110)
[2021-09-11] MEDS: pantoprazole 40 mg SDV IVP (18:15)
[2021-09-11] MEDS: sodium chloride 0.9% 1,000 ML 100 ML IV (18:18)
--- NOTE | 2021-09-11 18:50 | PC.NURSE ---
received into room 251-1 at 1700 from er.report received.sr on monitor.pt does not speak and does not make eye contact.oriented to room environment.
--- NOTE | 2021-09-11 19:17 | PC.NURSE ---
pt unable to swallow.dr woo notified.
[2021-09-11 19:25] VITALS: BP 119/67; PULSE 64; RESP 20; TEMP 36.4; O2SAT 99
--- NOTE | 2021-09-11 20:05 | ECG_ITS ---
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 Measurements Intervals [place] Rate: 82 P: 49 OK: 185 QRS: -13 QRSD: 104 T: 87 QT: 399 QTc: 468 Interpretive Statements SINUS RHYTHM WITH OCCASIONAL ECTOPIC PREMATURE COMPLEXES POSSIBLE ANTERIOR MYOCARDIAL INFARCTION , OF INDETERMINATE AGE [30 ms Q WAVE IN V3/V4, OR R < 0.2 mV IN V4] MODERATE T-WAVE ABNORMALITY, CONSIDER LATERAL ISCHEMIA Compared to ECG 09/11/2021 18:31:59 No significant changes Electronically Signed On 09-12-2021 13:06:54 CDT by Antonia Rene M.D. [id number]
[2021-09-11 20:37] VITALS: O2SAT 98
[2021-09-11 21:07] LABS: Glucose Point of Care 117 mg/dL (70-110)
[2021-09-11 23:41] VITALS: BP 111/65; PULSE 79; RESP 20; TEMP 36.3; O2SAT 99
[2021-09-12] VITALS (10 sets, daily range): BP systolic 96–120; BP diastolic 39–71; PULSE 69–98; RESP 18–20; TEMP 36.4–37.2; O2SAT 94–99
[2021-09-12] MEDS: sodium chloride 0.9% 1,000 ML 100 ML IV ×2 (03:05→18:17)
[2021-09-12 05:16] LABS: Basophils % 0.7 %; Eosinophils # 0.1 10^3/uL (0.0-0.8); Eosinophils % 1.8 %; Hematocrit 23.1 % (37.0-47.0); Hemoglobin 7.1 g/dL (11.5-15.3); Lymphocytes # 0.7 10^3/uL (0.8-4.8); Lymphocytes % 24.9 %; Mean Corpuscular HGB Conc 30.7 g/dL (30.0-36.0); Mean Corpuscular Hemoglobin 23.2 pg (28.0-34.0); Mean Corpuscular Volume 75.5 fl (81-99); Mean Platelet Volume 8.6 fL (7.4-10.4); Monocytes # 0.3 10^3/uL (0.2-0.9); Monocytes % 11.6 %; Neutrophils # 1.72 10^3/uL (1.8-7.7); Neutrophils % 60.3 %; Nucleated Red Blood Cells % 0 %; Platelet Count 168 10^3/cmm (130-400); Red Blood Count 3.06 10^6/uL (4.1-5.3); White Blood Count 2.9 10^3/uL (4.0-10.0)
[2021-09-12 05:26] LABS: INR 1.31 (0.8-1.2)
[2021-09-12] MEDS: pantoprazole 40 mg SDV IVP ×2 (05:47→17:16)
[2021-09-12 05:55] LABS: Alanine Aminotransferase 7 U/L (0-33); Albumin Level 3.2 g/dL (3.5-5.2); Alkaline Phosphatase 130 IU/L (35-105); Anion Gap 16.9 (5-19); Aspartate Amino Transferase 22 U/L (0-32); Blood Urea Nitrogen 45 mg/dL (8-23); Calcium 8.5 mg/dL (8.5-10.5); Carbon Dioxide 20 mmol/L (22-29); Chloride 104 mmol/L (98-107); Globulin 3.5 g/dL (1.3-4.6); Glucose 82 mg/dL (65-115); Osmolality Calculated 295 mOsm/kg (285-295); Phosphorus 3.8 mg/dL (2.5-4.5); Potassium 3.9 mmol/L (3.5-5.1); Sodium 137 mmol/L (136-145); Thyroid Stimulating Hormone 1.85 uIU/mL (0.27-4.20); Total Bilirubin 0.5 mg/dL (0.15-1.2); Total Protein 6.7 g/dL (6.6-8.7)
[2021-09-12 06:22] LABS: Glucose Point of Care 109 mg/dL (70-110)
--- NOTE | 2021-09-12 09:50 | PC.NURSE ---
lab notified this nurse of antibodies in type and cross with prior refusal to blood products. This nurse called sonRaymon with no answer. Notified physician. Orders were given to hold transfusion of PRBCs until consent from son.
[2021-09-12 11:25] LABS: Glucose Point of Care 111 mg/dL (70-110)
--- NOTE | 2021-09-12 12:26 | P.PN_ITS ---
Subjective Subjective: Patient was seen this morning, she is much more alert, and awake, she does follow commands, but does not know why she is here, does not where she is, does not know the time, she has no pain complaints, she does tell me that she is hungry Vitals/I&O/Wt Last Vital Signs Temp 97.5 F L 09/12/21 10:51 Pulse 86 09/12/21 10:51 Resp 18 09/12/21 10:51 BP 103/66 09/12/21 10:51 Pulse Ox 98 09/12/21 10:51 09/11/21 09/12/21 09/12/21 22:59 06:59 14:59 Intake Total 100 / 100 978.333 / 1078.333 Output Total Balance 99 / 99 978.333 / 1077.333 Weight last 48 hrs Weight 57.606 kg Physical Exam Const: COMMON NORMALS: no acute distress EXAM LIMITATIONS: altered mental status ORIENTATION/CONSCIOUSNESS: Yes awake and Yes oriented to person; not oriented to place and not oriented to time Resp: COMMON NORMALS: normal respiratory effort, No retractions, No use of accessory muscles and clear to auscultation bilaterally AUSCULTATION: clear to auscultation bilaterally Cardio: COMMON NORMALS: regular rate, regular rhythm, S1 normal heart sound present and S2 normal heart sound present RATE: regular rate RHYTHM: regular rhythm HEART SOUNDS: S1 normal heart sound present and S2 normal heart sound present GI: COMMON NORMALS: Normal to inspection, nondistended, normoactive bowel sounds present, Soft to palpation and non-tender PALPATION: Yes Soft to palpation Extremity: COMMON NORMALS: no pedal edema Neuro: SENSORIUM/ORIENTATION: Yes oriented to person, No oriented to place and No oriented to time Psych: COMMON NORMALS: mental status grossly normal Data : 09/12/21 04:20 09/12/21 04:20 Micro: Microbiology 09/11/21 14:40 Urine Culture - Preliminary Urine,Clean Catch Gram Negative Rods 09/11/21 15:14 Blood Culture - Preliminary Blood SPECIMEN COLLECTED 09/11/21 15:18 Blood Culture - Preliminary Blood SPECIMEN COLLECTED A&P Assessment and plan (1) Cystitis: Status: Acute (2) Encephalopathy: Status: Acute (3) Portal hypertension: Status: Acute (4) Liver cirrhosis secondary to nonalcoholic steatohepatitis (LLOYD): Status: Acute (5) AVM (arteriovenous malformation) of colon with hemorrhage: Status: Acute (6) Abdominal ascites: Status: Acute (7) C. difficile colitis: Status: Acute Plan Martha Moore is a 75 year old female with a past medical history of Lloyd, liver cirrhosis, recurrent ascites, history of recurrent GI bleed, portal hypertension, history of esophageal varices, history of deconditioning, history of AV malformations, history of C. difficile colitis, history of coagulopathy, CAD, diabetes, insulin-dependent, history of cerebral aneurysm status post clipping, who presents [facility] due to altered mental status. Altered mental status, likely sec to UTI, given history of multiple antibiotic therapies, he has ESBL risk factors, start Primaxin Hemoglobin 7.1, continue to monitor Ammonia level 66, start rifaximin, lactulose Type 2 diabetes mellitus, low-dose sliding scale Creatinine 1.0, gentle IV fluids History of Lloyd, liver cirrhosis -Monitor liver function, monitor INR History of esophageal varices, avoid blood thinners, avoid Lovenox History of cerebral aneurysm status post clipping Full code SCDs for DVT prophylaxis Attestations Medical Necessity Statement*: Patient requires hospitalization for altered mental status likely UTI 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 difficile colitis A04.72
[2021-09-12] MEDS: lactulose oral liq 20 gm/30 mL UDC PO ×3 (12:29→23:51)
[2021-09-12] MEDS: insulin lispro 100 unit/1 mL SUBCUT (17:14)
[2021-09-12] MEDS: magnesium oxide 400 mg tablet PO (17:15)
[2021-09-12] MEDS: sucralfate 1 gm Tablet PO ×2 (17:15→20:33)
[2021-09-12 17:28] LABS: Glucose Point of Care 159 mg/dL (70-110)
[2021-09-13] VITALS (13 sets, daily range): BP systolic 103–131; BP diastolic 40–72; PULSE 64–96; RESP 12–20; TEMP 36.5–37.4; O2SAT 96–100
[2021-09-13 05:41] LABS: Basophils % 1.1 %; Eosinophils % 0.7 %; Hematocrit 30.6 % (37.0-47.0); Hemoglobin 9.5 g/dL (11.5-15.3); Lymphocytes # 0.6 10^3/uL (0.8-4.8); Lymphocytes % 22.4 %; Mean Corpuscular Hemoglobin 24.1 pg (28.0-34.0); Mean Corpuscular Volume 77.7 fl (81-99); Mean Platelet Volume 8.9 fL (7.4-10.4); Monocytes # 0.3 10^3/uL (0.2-0.9); Neutrophils # 1.75 10^3/uL (1.8-7.7); Neutrophils % 64.4 %; Nucleated Red Blood Cells % 0 %; Platelet Count 170 10^3/cmm (130-400); Red Blood Count 3.94 10^6/uL (4.1-5.3); Red Cell Distribution Width 20.2 % (12.1-15.1); White Blood Count 2.7 10^3/uL (4.0-10.0)
[2021-09-13] MEDS: lactulose oral liq 20 gm/30 mL UDC PO ×2 (05:50→11:53)
[2021-09-13] MEDS: pantoprazole 40 mg SDV IVP (05:51)
[2021-09-13] MEDS: sucralfate 1 gm Tablet PO ×2 (05:51→11:53)
[2021-09-13 06:03] LABS: INR 1.19 (0.8-1.2)
[2021-09-13 06:09] LABS: Alanine Aminotransferase 7 U/L (0-33); Albumin Level 3.4 g/dL (3.5-5.2); Alkaline Phosphatase 141 IU/L (35-105); Anion Gap 17.2 (5-19); Aspartate Amino Transferase 22 U/L (0-32); Blood Urea Nitrogen 22 mg/dL (8-23); Calcium 8.9 mg/dL (8.5-10.5); Carbon Dioxide 18 mmol/L (22-29); Chloride 103 mmol/L (98-107); Globulin 3.7 g/dL (1.3-4.6); Glucose 150 mg/dL (65-115); Magnesium 1.9 mg/dL (1.7-2.3); Osmolality Calculated 286 mOsm/kg (285-295); Phosphorus 2.5 mg/dL (2.5-4.5); Potassium 3.2 mmol/L (3.5-5.1); Sodium 135 mmol/L (136-145); Total Bilirubin 0.9 mg/dL (0.15-1.2); Total Protein 7.1 g/dL (6.6-8.7)
[2021-09-13 06:55] LABS: Glucose Point of Care 202 mg/dL (70-110)
[2021-09-13 06:55] LABS: Glucose Point of Care 134 mg/dL (70-110)
[2021-09-13] MEDS: magnesium oxide 400 mg tablet PO (08:34)
[2021-09-13] MEDS: potassium chloride ER 20 mEq Tablet 40 MEQ PO (10:33)
--- NOTE | 2021-09-13 11:10 | PC.CHAP ---
Pastoral Care Encounter/Spiritual Assessment Type of Contact [] Declined cytogeneticist visit [] Patient/Family/Request visit [] Outpatient visit [] Follow-up visit [] Physician referral [] Code/Alert [x] Routine visit [] Staff referral [] Actively dying [] Patient sleeping [] Family support [] [] Out of room [] Palliative care [] [] Receiving care in room [] Pre-surgical visit [] Trauma [] Long length of stay [] ICU visit [] Other: Relational/Emotional Strength [x] Patient feels connected with others/family/visitors/staff [] Distress [] Loneliness/isolation [] Abandonment Spirituality of Patient x] Person of Radha [] Attends Bahai of their Radha x[] Believes in Prayer [] Reads Bible or Denominational materials x [] There are Spiritual issues to be addressed Nurse Case Manager Interventions [x] Prayer [x] Active listening [x] Non-anxious presence [x] Spiritual/emotional support [] Crisis/trauma care [] Spiritual counseling [] Bereavement support [] Provided bereavement packet [] Provided Bible/devotional materials [] Provided toy/stuffed animal, coloring book to patient or family member [] Provided Communion [] Anointing/[place] [] Salvation [x Completed spiritual assessment [] Other: Impact on Illness or Injury [] Angry [] Fearful [] Anxious [] Often cries [] Exhaustion [] Unable to work [] Unable to attend episcopalian [] Unable to walk/stand [] Unable to read [] Unable to drive [] Unable to eat/drink [] Unable to sleep [] Unable to be with family [] Patient intubated [] Other: Summary Time spent with patient 10 min
[2021-09-13 11:11] LABS: Ammonia 51 umol/L (11-51)
[2021-09-13 11:30] LABS: Glucose Point of Care 211 mg/dL (70-110)
[2021-09-13] MEDS: insulin lispro 100 unit/1 mL SUBCUT (11:53)
--- NOTE | 2021-09-13 13:37 | PM.PN ---
Subjective Subjective: Patient was much more alert, and awake this morning, she follows commands, no fevers overnight, Vitals/I&O/Wt Last Vital Signs Temp 98 F 09/13/21 12:00 Pulse 81 09/13/21 12:00 Resp 12 09/13/21 12:00 BP 127/66 09/13/21 12:00 Pulse Ox 98 09/13/21 12:00 09/12/21 09/13/21 09/13/21 22:59 06:59 14:59 Intake Total 520 / 1620 1750 / 3370 360 / 360 Balance 520 / 1620 1750 / 3370 360 / 360 Weight last 48 hrs Weight 57.606 kg Data : 09/13/21 04:47 09/13/21 04:47 Micro: Microbiology 09/11/21 14:40 Urine Culture - Final Urine,Clean Catch Proteus mirabilis 09/11/21 15:18 Blood Culture - Preliminary Blood NEGATIVE TO DATE 09/11/21 15:14 Blood Culture - Preliminary Blood NEGATIVE TO DATE Coding Level of Care Code Acute [employer] 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
[2021-09-13] MEDS: sodium chloride 0.9% 1,000 ML 100 ML IV (13:39)
--- NOTE | 2021-09-13 13:46 | PM.DCS ---
Discharge Providers Date of Admission: 09/11/21 15:22 Date of Discharge: September 13, 2021 Attending Provider at Admission: Jeff Dallas MD Attending Provider at Discharge: Jeff Dallas MD Diagnoses at Discharge Discharge Diagnosis (1) Cystitis: Status: Acute (2) Encephalopathy: Status: Acute (3) Portal hypertension: Status: Acute Permanent problem details: EGD esophageal banding on 03/25/16 she has been transfused multiple times (4) Liver cirrhosis secondary to nonalcoholic steatohepatitis (LLOYD): Status: Acute (5) AVM (arteriovenous malformation) of colon with hemorrhage: Status: Acute (6) Abdominal ascites: Status: Acute (7) C. difficile colitis: Status: Acute Reason for Visit Reason for Visit: [facility] Hospital Course Hospital Course Martha Moore is a 75 year old female with a past medical history of Lloyd, liver cirrhosis, recurrent ascites, history of recurrent GI bleed, portal hypertension, history of esophageal varices, history of deconditioning, history of AV malformations, history of C. difficile colitis, history of coagulopathy, CAD, diabetes, insulin-dependent, history of cerebral aneurysm status post clipping, who is legally deaf, who is legally deaf, who presents [facility] due to altered mental status.? Altered mental status, likely secondary UTI, elevated ammonia levels. Managed with broad-spectrum antibiotic therapy, rifaximin, lactulose, IV fluids, clinically monitored. Overall patient's mentation improved, she was able to follow commands, urine cultures positive for Proteus, discharged on Augmentin. For elevated ammonia levels, discharged on rifaximin and lactulose. Patient has a history of anemia, secondary to liver failure, hemoglobin got as low as 7.1, no active bleeding, discharged on Protonix, Carafate. Patient was discharged back to local skilled nursing Physical Exam Const: COMMON NORMALS: no acute distress ORIENTATION/CONSCIOUSNESS: Yes awake, Yes oriented to person and Yes oriented to place; not oriented to time Resp: COMMON NORMALS: normal respiratory effort, No retractions, No use of accessory muscles and clear to auscultation bilaterally AUSCULTATION: clear to auscultation bilaterally Cardio: COMMON NORMALS: regular rate, regular rhythm, S1 normal heart sound present and S2 normal heart sound present RATE: regular rate RHYTHM: regular rhythm HEART SOUNDS: S1 normal heart sound present and S2 normal heart sound present GI: COMMON NORMALS: Normal to inspection, nondistended, normoactive bowel sounds present, Soft to palpation, non-tender and No hepatosplenomegaly present PALPATION: Yes Soft to palpation and Yes No hepatosplenomegaly present Extremity: COMMON NORMALS: no pedal edema Neuro: SENSORIUM/ORIENTATION: Yes oriented to person, Yes oriented to place and No oriented to time Psych: COMMON NORMALS: mental status grossly normal Discharge Data Studies Completed and Pending Completed Studies During Hospitalization Category Date Time Status CT head wo con* [id number] Stat Cat Scan 09/11/21 14:05 Completed XR chest 1V portable [id number] Stat Exams 09/11/21 14:05 Completed US renal BI* [id number] Stat Ultrasound 09/11/21 15:56 Completed Pending at discharge Category Date Time Status Blood Culture Stat Lab 09/11/21 15:18 Results Clostridioides Difficile PCR Routine Lab 09/11/21 17:35 Ordered Complete Blood Count w/Auto AM LABS Lab 09/14/21 04:00 Ordered Complete Blood Count w/Auto AM LABS Lab 09/15/21 04:00 Ordered Comprehensive Metabolic Panel AM LABS Lab 09/14/21 04:00 Ordered Enteric Bacterial Panel by PCR Routine Lab 09/11/21 17:35 Ordered Enteric Parasite Panel by PCR Routine Lab 09/11/21 17:35 Ordered Immunochemical Fecal OCB Routine Lab 09/11/21 17:35 Ordered Lactoferrin Routine Lab 09/11/21 17:35 Ordered Magnesium AM LABS Lab 09/14/21 04:00 Ordered Phosphorus AM LABS Lab 09/14/21 04:00 Ordered Prothrombin Time INR AM LABS Lab 09/14/21 04:00 Ordered Radiology Impressions Chest X-Ray 09/11/21 14:05 IMPRESSION: No pneumonia or heart failure. Head CT 09/11/21 14:05 IMPRESSION: No acute intracranial abnormality. Renal Ultrasound 09/11/21 15:56 IMPRESSION: Unremarkable renal ultrasound examination. No hydronephrosis. Laboratory Results WBC 2.7 10^3/uL (4.0-10.0) L 09/13/21 04:47 RBC 3.94 10^6/uL (4.1-5.3) L 09/13/21 04:47 Hgb 9.5 g/dL (11.5-15.3) L D 09/13/21 04:47 Hct 30.6 % (37.0-47.0) L D 09/13/21 04:47 MCV 77.7 fl (81-99) L 09/13/21 04:47 MCH 24.1 pg (28.0-34.0) L 09/13/21 04:47 MCHC 31.0 g/dL (30.0-36.0) 09/13/21 04:47 RDW 20.2 % (12.1-15.1) H 09/13/21 04:47 Plt Count 170 10^3/cmm (130-400) 09/13/21 04:47 MPV 8.9 fL (7.4-10.4) 09/13/21 04:47 Neut % (Auto) 64.4 % 09/13/21 04:47 Lymph % (Auto) 22.4 % 09/13/21 04:47 Ray % (Auto) 11.0 % 09/13/21 04:47 Eos % (Auto) 0.7 % 09/13/21 04:47 Baso % (Auto) 1.1 % 09/13/21 04:47 Neut # (Auto) 1.75 10^3/uL (1.8-7.7) L 09/13/21 04:47 Lymph # (Auto) 0.6 10^3/uL (0.8-4.8) L 09/13/21 04:47 Ray # (Auto) 0.3 10^3/uL (0.2-0.9) 09/13/21 04:47 Eos # (Auto) 0.0 10^3/uL (0.0-0.8) 09/13/21 04:47 Baso # (Auto) 0.0 10^3/uL (0.0-0.1) 09/13/21 04:47 Nucleated RBC % (auto) 0 % 09/13/21 04:47 Nucleated RBCs # 0.0 /100WBC 09/13/21 04:47 PT 15.40 SECONDS (12.1-14.9) H 09/13/21 04:47 INR 1.19 (0.8-1.2) 09/13/21 04:47 Sodium 135 mmol/L (136-145) L 09/13/21 04:47 Potassium 3.2 mmol/L (3.5-5.1) L 09/13/21 04:47 Chloride 103 mmol/L (98-107) 09/13/21 04:47 Carbon Dioxide 18 mmol/L (22-29) L 09/13/21 04:47 Anion Gap 17.2 (5-19) 09/13/21 04:47 BUN 22 mg/dL (8-23) 09/13/21 04:47 Creatinine 0.7 mg/dL (0.5-0.9) 09/13/21 04:47 GFR Calculation Not Reportable 09/13/21 04:47 Glucose 150 mg/dL (65-115) H 09/13/21 04:47 POC Glucose 211 mg/dL (70-110) H 09/13/21 10:44 Calculated Osmolality 286 mOsm/kg (285-295) 09/13/21 04:47 Lactic Acid 1.5 mmol/L (0.5-2.2) 09/11/21 13:40 Calcium 8.9 mg/dL (8.5-10.5) 09/13/21 04:47 Phosphorus 2.5 mg/dL (2.5-4.5) 09/13/21 04:47 Magnesium 1.9 mg/dL (1.7-2.3) 09/13/21 04:47 Total Bilirubin 0.9 mg/dL (0.15-1.2) 09/13/21 04:47 AST 22 U/L (0-32) 09/13/21 04:47 ALT 7 U/L (0-33) 09/13/21 04:47 Alkaline Phosphatase 141 IU/L (35-105) H 09/13/21 04:47 Ammonia 51 umol/L (11-51) 09/13/21 10:30 Creatine Kinase 44 U/L (26-192) 09/11/21 13:40 Troponin T Baseline 42 ng/L (0-10) H 09/11/21 13:40 Troponin T 120 Minute 44.57 ng/L (0-10) H 09/11/21 16:20 Delta Troponin T 2.57 ABS# (0-10) 09/11/21 16:20 Troponin T Hi Sens 6Hr 48.80 ng/L (0-10) H 09/11/21 19:53 Troponin T Hi Sens 6Hr Delta 6.80 ng/L (0-12) 09/11/21 19:53 Total Protein 7.1 g/dL (6.6-8.7) 09/13/21 04:47 Albumin 3.4 g/dL (3.5-5.2) L 09/13/21 04:47 Globulin 3.7 g/dL (1.3-4.6) 09/13/21 04:47 Lipase 67 U/L (13-60) H 09/11/21 13:40 TSH 1.85 uIU/mL (0.27-4.20) 09/12/21 04:20 Urine Color Dark yellow (Yellow) 09/11/21 14:40 Urine Appearance Sl hazy (CLEAR) 09/11/21 14:40 Urine pH 9 (5-7) H 09/11/21 14:40 Ur Specific [place] 1.015 (1.005-1.030) 09/11/21 14:40 Urine Protein Neg (Negative) 09/11/21 14:40 Urine Glucose (UA) Norm (Normal) 09/11/21 14:40 Urine Ketones Negative (Negative) 09/11/21 14:40 Urine Blood Neg (Negative) 09/11/21 14:40 Urine Nitrate Negative (Negative) 09/11/21 14:40 Urine Bilirubin Neg (Negative) 09/11/21 14:40 Prot Sulfosalicylic Acd Negative (Negative) 09/11/21 14:40 Urine Urobilinogen Norm mg/dL (Negative) 09/11/21 14:40 Ur Leukocyte Esterase 2+ (Negative) H 09/11/21 14:40 Urine RBC None /hpf (0-2) 09/11/21 14:40 Urine WBC >100 /hpf (0-5) H 09/11/21 14:40 Ur Squamous Epith Cells 5-10 /hpf (0-5) H 09/11/21 14:40 Amorphous Sediment Not Reportable 09/11/21 14:40 Urine Bacteria 2+ /hpf (NONE) H 09/11/21 14:40 Serum Ketones Negative (Negative) 09/11/21 13:40 Blood Type O Positive 09/12/21 21:30 Rho(D) Type Positive 09/12/21 21:30 Antibody Screen Negative 09/12/21 21:30 Crossmatch See Detail 09/12/21 21:30 Vitals Last Vital Signs Temp 98 F 09/13/21 12:00 Pulse 81 09/13/21 12:00 Resp 12 09/13/21 12:00 BP 127/66 09/13/21 12:00 Pulse Ox 98 09/13/21 12:00 Discharge Plan Discharge Patient Disposition: Home Condition: Stable Prescriptions: New Xifaxan 550 mg Tablet 550 mg PO BID 30 Days Qty: 60 0RF sucralfate 1 gram Tablet 1 g PO AC&BEDTIME 30 Days Qty: 60 0RF pantoprazole [Protonix] 40 mg tablet,delayed release (DR/EC) 40 mg PO BID 30 Days Qty: 60 0RF amoxicillin-pot clavulanate 875-125 mg tablet 1 tab PO BID 5 Days Qty: 10 0RF Continued ferrous sulfate 325 mg (65 mg iron) Tablet 325 mg PO BID@07,17 0RF insulin lispro [Humalog KwikPen Insulin] 100 unit/mL Insulin Pen See Rx Instructions .ROUTE .COMPLEX 0RF Rx Instructions: sliding scale before meals and at bedtime 140-175=2 units 176-200=3 units 201-250=5 units 251-299=7 units 300 plus =9 units polyethylene glycol 3350 17 gram/dose Powder 17 g PO DAILY@07 0RF mirtazapine 7.5 mg tablet 7.5 mg PO BEDTIME@19 0RF melatonin 5 mg Tablet 5 mg PO BEDTIME@19 0RF acetaminophen 500 mg Tablet 1,000 mg PO Q6H PRN (Reason: Pain) 0RF magnesium hydroxide [Milk of Magnesia] 400 mg/5 mL Suspension 30 ml PO DAILY PRN (Reason: Constipation) 0RF nitroglycerin [Nitrostat] 0.4 mg Tablet, Sublingual 0.4 mg SUBLINGUAL Q5M PRN (Reason: Chest Pain) 0RF Rx Instructions: do not exceed 3 doses per episode omeprazole 40 mg capsule,delayed release(DR/EC) 40 mg PO BID@07,17 0RF spironolactone 25 mg tablet 50 mg PO DAILY@07 0RF ondansetron HCl 8 mg Tablet 8 mg PO Q8H PRN (Reason: Nausea) 0RF tramadol 50 mg Tablet 50 mg PO Q6H PRN (Reason: Pain) 0RF lactulose 20 gram/30 mL Solution 10 g PO DAILY Qty: 450 0RF magnesium oxide [MagOx] 400 mg (241.3 mg magnesium) tablet 400 mg PO BID Qty: 60 0RF metolazone 2.5 mg tablet 2.5 mg PO DAILY Qty: 30 0RF Changed insulin glargine [Lantus Solostar U-100 Insulin] 100 unit/mL (3 mL) Insulin Pen 5 unit SUBCUT DAILY@08 Qty: 0 0RF bumetanide 1 mg Tablet 1 mg PO DAILY Qty: 60 0RF Discharge Orders: Discharge Order (Routine); Ordered 09/13/21 Ordered By: Jeff Dallas Discharge Diet: Regular and Diabetic Discharge Activity: Resume usual activity Patient Instructions: Opioid Safety Activity Restrictions/Additional Instructions: - Take antibiotics as prescribed -Recheck kidney function in 1 week Discharge Attestations Time Spent in Discharge Care*: less than 30 min Status at Discharge: Cognitive status at discharge: cognitively intact, Behavioral status at discharge: cooperative, Quality Metrics Clinical Quality Measures [ No reported AMI, CVA or VTE this stay] Coding Level of Care Code Acute Chg [facility] note Diagnoses Cystitis N30.90 Encephalopathy G93.40 Portal hypertension K76.6 Liver cirrhosis secondary to nonalcoholic steatohepatitis (LLOYD) K75.81; K74.60 AVM (arteriovenous malformation) of colon with hemorrhage K55.21 Abdominal ascites R18.8 C. difficile colitis A04.72
--- NOTE | 2021-09-14 07:12 | PC.OT ---
OT EVALUATION ORDERS RECEIVED. PATIENT DISCHARGED BEFORE EVALUATION COULD BE COMPLETED.
== END 2021-09-13 16:30 | disposition home or self-care (01) ==
LOC: ER 15:32 → MEDSURG 09-12 03:06
PROVIDERS: Admitting Provider Family Medicine; Emergency Provider Family Medicine; Visit Provider Family Medicine
DX: N30.90 Cystitis, unspecified without hematuria (principal); G93.40 Encephalopathy, unspecified; K76.6 Portal hypertension; K75.81 Nonalcoholic steatohepatitis (NASH); K74.60 Unspecified cirrhosis of liver; K55.21 Angiodysplasia of colon with hemorrhage; R18.8 Other ascites; A04.72 Enterocolitis due to Clostridium difficile, not specified as recurrent; I25.10 Atherosclerotic heart disease of native coronary artery without angina pectoris; E11.9 Type 2 diabetes mellitus without complications; Z79.4 Long term (current) use of insulin
CPT/HCPCS: 36415; 36416; 36430; 70450; 71045; 76770; 80053; 81001; 82009; 82140; 82550; 82962; 83605; 83690; 83735; 84100; 84443; 84484; 85025; 85610; 86850; 86900; 86920; 87040; 87077; 87086; 87186; 92610; 93005; 94664; 96365; 96372; 99285; C9113; G0378; J0696; J0743; J1815; J7030; P9016

== ENCOUNTER 2021-11-28 08:24 | Inpatient (IN) | payer MEDICARE, MEDICAID, SELFPAY ==
[2021-11-28] VITALS (20 sets, daily range): BP systolic 101–130; BP diastolic 43–64; PULSE 60–89; RESP 16–23; TEMP 36.8–38.1; O2SAT 95–100; BMI 27.3
--- NOTE | 2021-11-28 08:42 | PC.NURSE ---
Per EMS, around 0330 this morning, pt was in bed and felt like her blood sugar was dropping. Went to get up and she fell. C/O pain to bilat knees and left shoulder. bruising noted to bilat knees, swelling to right knee, abrasion to left knee, skin tear to left arm. Pt reports she had gotten up to get a bite to eat and when going back to bed, she went to sit on the bed but just kept going. Per EMS, blood sugar was 217.
--- NOTE | 2021-11-28 08:47 | XRR_ITS ---
PROCEDURE INFORMATION: Exam: XR Left Knee Exam date and time: 11/28/2021 8:56 AM Age: 76 years old Clinical indication: Injury or trauma; Fall; Blunt trauma; Knee; Left TECHNIQUE: Imaging protocol: Radiologic exam of the Left knee. Views: 3 views. AP [place] Lateral COMPARISON: No relevant prior studies available. FINDINGS: Bones/joints: There are 3 compartment small degenerative osteophytes with some tibial spine degenerative osteophytes. There are no fractures or dislocations. There is generalized osteopenia. Mild patellofemoral compartment joint space narrowing is seen, suggestive of osteoarthritic change. There are no joint bodies. There is generalized osteopenia. Soft tissues: There is no joint effusion. There are no radiopaque foreign bodies. There is no can't significant radiographic knee region soft tissue swelling. Notes: If there is further concern, recommend follow-up radiographs or MRI for complete assessment. XR/XR knee LT 3V* [id number] IMPRESSION: No fractures or dislocation of the left knee.
--- NOTE | 2021-11-28 08:47 | XRR_ITS ---
PROCEDURE INFORMATION: Exam: XR Right Knee Exam date and time: 11/28/2021 9:01 AM Age: 76 years old Clinical indication: Injury or trauma; Fall; Blunt trauma; Knee; Right TECHNIQUE: Imaging protocol: Radiologic exam of the Right knee. Views: 3 views. AP [place] Lateral COMPARISON: No relevant prior studies available. FINDINGS: Bones/joints: There is a comminuted distal femoral supracondylar fracture. There is 1 cm anterior displacement of the distal fracture fragment with 4 cm foreshortening. There is generalized osteopenia. 3 compartment small degenerative osteophytes are seen. Mild patellofemoral compartment joint space narrowing is seen, suggestive of osteoarthritic change. Soft tissues: There is [id number] knee region soft tissue swelling with a small knee joint effusion. Severe atherosclerotic vascular calcifications are seen. Notes: Followup radiographs may be obtained for complete assessment. XR/XR knee RT 3V* [id number] IMPRESSION: Comminuted, displaced right distal femoral supracondylar fracture, as noted above.
--- NOTE | 2021-11-28 08:47 | XRR_ITS ---
PROCEDURE INFORMATION: Exam: XR Right Femur Exam date and time: 11/28/2021 9:08 AM Age: 76 years old Clinical indication: Injury or trauma; Fall; Blunt trauma; Thigh or upper leg; Right; Prior surgery TECHNIQUE: Imaging protocol: Radiologic exam of the Right femur. Views: 2 views. COMPARISON: CR (LOW EXM, ) 11/28/2021 9:01 AM FINDINGS: Bones/joints: Comminuted right distal femoral supracondylar fracture is seen. There is 5.1 cm distal displacement (foreshortening) and 1 cm anterior displacement of the proximal fracture fragment. There is absence of the right femoral head, which may represent posttraumatic osteolysis or postsurgical change. Postsurgical changes of the right acetabulum and superior pubic ramus region are seen with compression plate and screws. There is generalized osteopenia. Some degenerative changes of the visualized right knee region are seen. Soft tissues: There is [id number] soft tissue swelling at the fracture site. No radiopaque foreign bodies. Notes: Followup radiographs may be obtained for complete assessment. XR/XR femur RT min 2V* [id number] IMPRESSION: Comminuted, displaced right distal femoral supracondylar fracture, as noted above.
--- NOTE | 2021-11-28 08:47 | XRR_ITS ---
PROCEDURE INFORMATION: Exam: XR Left Shoulder Exam date and time: 11/28/2021 9:19 AM Age: 76 years old Clinical indication: Injury or trauma; Fall; Blunt trauma (contusions or hematomas); Shoulder; Left TECHNIQUE: Imaging protocol: Radiologic exam of the Left shoulder. Views: 2 or more views. AP INT/ EXT ROTATION, SCAPULAR Y COMPARISON: CR (CHEST, ) 09/11/2021 2:09 PM FINDINGS: Bones/joints: The AP internal and external views of the left shoulder show expected alignment at the glenohumeral joint. [id number] glenohumeral joint space narrowing is seen with small osteophytes, consistent with osteoarthritic change. There are no fractures or dislocations. Moderate acromioclavicular degenerative changes are seen. There is generalized osteopenia. The visualized scapula and clavicle are unremarkable. Soft tissues: There are no radiopaque foreign bodies or soft tissue swelling. Notes: If there is further concern, follow-up radiographs or MRI of the shoulder may be performed for complete assessment. XR/XR shoulder LT min 2V* [id number] IMPRESSION: No visualized fractures or dislocations of left shoulder. Degenerative changes, as noted above.
--- NOTE | 2021-11-28 09:13 | ED_ITS ---
HPI - Fall General: Chief Complaint: Fall Stated Complaint: LEFT SHOUDLER/RIGHT KNEE PAIN S/P FALL Time Seen by Provider: 11/28/21 08:31 History of Present Illness: 76-year-old female presenting today with ground- level fall. Patient notes her blood sugar was low last night. She went to grab something to eat. When she was getting back in her bed. She lost her momentum. Falling forward striking her arm and knees on the ground. She denies striking her head. She denies neck pain. She denies numbness tingling or weakness. She denies chest pain or shortness of breath. She notes the fall was purely mechanical in nature. She notes significant pain in bilateral knees. Is co mplaining of inability to flex the right knee. Review of Systems General: Reports: 10 or more systems reviewed and unremarkable except in HPI and below PFSH ED PFSH: Medical History Abdominal ascites Abdominal pain Abnormal colonoscopy Anemia AVM (arteriovenous malformation) AVM (arteriovenous malformation) of colon with hemorrhage C. difficile colitis Cerebral aneurysm Diverticulosis Fluid overload GI bleed Esophageal variceal banding on 2 occasions in the past, EGD colonoscopy October 2015 upper endoscopy showed esophageal varices with no bleeding or stigmata of bleeding. Colonoscopy showed multiple AVMs in the ascending and proximal transverse colon which were cauterized. Extensive diverticulosis with internal and external hemorrhoids were noted. 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 (LLOYD) LLOYD (nonalcoholic steatohepatitis) Portal hypertension EGD esophageal banding on 03/25/16 she has been transfused multiple times Type 2 diabetes mellitus Surgical History S/P endoscopy Family History Other Family history non-contributory Social History Smoking and tobacco status: never smoked Alcohol intake: never Housing: House Physical Exam Const: COMMON NORMALS: no acute distress, patient oriented x3 and alert GENERAL APPEARANCE: cooperative ORIENTATION/CONSCIOUSNESS: Yes awake, Yes oriented to person, Yes oriented to place and Yes oriented to time HENMT: COMMON NORMALS: normocephalic, atraumatic, external ears normal, Normal external nose present and moist oral mucous membranes HEAD & SCALP: normal to inspection, normocephalic and atraumatic NOSE: Normal external nose present GENERAL EAR: hearing grossly impaired EXTERNAL EAR: Yes external ears normal Eye: COMMON NORMALS: Equal, round and reactive pupils present, EOMs intact bilaterally, conjunctivae normal and no scleral icterus GENERAL EYE: appearance normal, both eyes and all related structures EYELID: eyelids normal CONJUNCTIVA: Yes conjunctivae normal SCLERA: sclerae normal PUPIL: Yes Equal, round and reactive pupils present Neck/C-Spine: COMMON NORMALS: full ROM, supple and no JVD GENERAL: Yes normal visual inspection Lymph: LYMPHATIC: no lymphadenopathy noted and no lymphedema noted Chest: COMMONS NORMALS: normal inspection of the chest Resp: COMMON NORMALS: normal respiratory effort, No retractions and No use of accessory muscles Cardio: COMMON NORMALS: no JVD, regular rate and regular rhythm RATE: regular rate RHYTHM: regular rhythm GI: COMMON NORMALS: Normal to inspection, nondistended, normoactive bowel sounds present : COMMON NORMALS: Yes no CVA tenderness BLADDER/KIDNEY EXAM: Yes no CVA tenderness Back/Pelvis: COMMON NORMALS: no CVA tenderness and thoracic and lumbar spine normal to inspection Extremity: COMMON NORMALS: normal to inspection, full ROM and capillary refill normal GENERAL: Yes normal exam except as noted Neuro: COMMON NORMALS: patient oriented x3, CN's II-XII intact bilaterally, moves all extremities, no focal motor deficits, no sensory deficits noted and gait normal SENSORIUM/ORIENTATION: Yes alert, Yes oriented to person, Yes oriented to place and Yes oriented to time Psych: COMMON NORMALS: mental status grossly normal, Normal thought process present, cooperative and normal affect THOUGHT PROCESS: Normal thought process present Skin: COMMON NORMALS: no rashes or lesions noted and no wounds GENERAL SKIN EXAM: no rashes or lesions noted Course Vital Signs: Vital signs: Vital Signs Temperature 98.2 F 11/28/21 08:26 Pulse Rate 87 11/28/21 08:47 Respiratory Rate 18 11/28/21 08:47 Blood Pressure 130/64 11/28/21 08:47 Pulse Oximetry 100 11/28/21 08:47 Oxygen Delivery Me thod 11/28/21 08:47 MDM - Fall Medical Decision Making 76-year-old female presenting today with trauma. Patient with evidence of supracondylar femur fracture on the right side. Hemoglobin level of 5.8. Will transfuse 2 units of packed red blood cells. Spoke to Dr. Morejon who recommended admission to the hospital will operatively fixate tomorrow. Patient admitted to hospital medicine in stable condition. Lab Data : 11/28/21 09:20 11/28/21 08:55 Radiology Impressions Femur X-Ray 11/28/21 08:47 IMPRESSION: Comminuted, displaced right distal femoral supracondylar fracture, as noted above. Knee X-Ray 11/28/21 08:47 IMPRESSION: Comminuted, displaced right distal femoral supracondylar fracture, as noted above. Shoulder X-Ray 11/28/21 08:47 IMPRESSION: No visualized fractures or dislocations of left shoulder. Degenerative changes, as noted above. Laboratory Results WBC 4.5 10^3/uL (4.0-10.0) 11/28/21 09:20 RBC 2.33 10^6/uL (4.1-5.3) L 11/28/21 09:20 Hgb 5.8 g/dL (11.5-15.3) L* 11/28/21 09:20 Hct 19.4 % (37.0-47.0) L* 11/28/21 09:20 MCV 83.3 fl (81-99) 11/28/21 09:20 MCH 24.9 pg (28.0-34.0) L 11/28/21 09:20 MCHC 29.9 g/dL (30.0-36.0) L 11/28/21 09:20 RDW 15.9 % (12.1-15.1) H 11/28/21 09:20 Plt Count 196 10^3/cmm (130-400) 11/28/21 09:20 MPV 8.7 fL (7.4-10.4) 11/28/21 09:20 Neut % (Auto) 83.5 % 11/28/21 09:20 Lymph % (Auto) 7.7 % 11/28/21 09:20 [place] % (Auto) 8.2 % 11/28/21 09:20 Eos % (Auto) 0.0 % 11/28/21 09:20 Baso % (Auto) 0.2 % 11/28/21 09:20 Neut # (Auto) 3.78 10^3/uL (1.8-7.7) 11/28/21 09:20 Lymph # (Auto) 0.4 10^3/uL (0.8-4.8) L 11/28/21 09:20 [place] # (Auto) 0.4 10^3/uL (0.2-0.9) 11/28/21 09:20 Eos # (Auto) 0.0 10^3/uL (0.0-0.8) 11/28/21 09:20 Baso # (Auto) 0.0 10^3/uL (0.0-0.1) 11/28/21 09:20 Nucleated RBC % (auto) 0 % 11/28/21 09:20 Nucleated RBCs # 0.0 /100WBC 11/28/21 09:20 Sodium 132 mmol/L (136-145) L 11/28/21 08:55 Potassium 3.9 mmol/L (3.5-5.1) 11/28/21 08:55 Chloride 99 mmol/L (98-107) 11/28/21 08:55 Carbon Dioxide 20 mmol/L (22-29) L 11/28/21 08:55 Anion Gap 16.9 (5-19) 11/28/21 08:55 BUN 35 mg/dL (8-23) H 11/28/21 08:55 Creatinine 1.0 mg/dL (0.5-0.9) H 11/28/21 08:55 GFR Calculation Not Reportable 11/28/21 08:55 Glucose 156 mg/dL (65-115) H 11/28/21 08:55 Calculated Osmolality 285 mOsm/kg (285-295) 11/28/21 08:55 Calcium 9.1 mg/dL (8.5-10.5) 11/28/21 08:55 Total Bilirubin 0.5 mg/dL (0.15-1.2) 11/28/21 08:55 AST 42 U/L (0-32) H 11/28/21 08:55 ALT 16 U/L (0-33) 11/28/21 08:55 Alkaline Phosphatase 197 U/L (35-105) H 11/28/21 08:55 Total Protein 6.4 g/dL (6.6-8.7) L 11/28/21 08:55 Albumin 3.2 g/dL (3.5-5.2) L 11/28/21 08:55 Globulin 3.2 g/dL (1.3-4.6) 11/28/21 08:55 Discharge Plan Discharge Patient Disposition: Admitted As Inpatient Clinical Impression: Femur fracture, right, Anemia Condition: Stable Prescriptions: No Action ferrous sulfate 325 mg (65 mg iron) Tablet 325 mg PO BID@07,17 insulin lispro [Humalog KwikPen Insulin] 100 unit/mL Insulin Pen See Rx Instructions .ROUTE .COMPLEX Rx Instructions: sliding scale before meals and at bedtime 140-175=2 units 176-200=3 units 201-250=5 units 251-299=7 units 300 plus =9 units polyethylene glycol 3350 17 gram/dose Powder 17 g PO DAILY@07 mirtazapine 7.5 mg tablet 7.5 mg PO BEDTIME@19 melatonin 5 mg Tablet 5 mg PO BEDTIME@19 acetaminophen 500 mg Tablet 1,000 mg PO Q6H PRN (Reason: Pain) magnesium hydroxide [Milk of Magnesia] 400 mg/5 mL Suspension 30 ml PO DAILY PRN (Reason: Constipation) nitroglycerin [Nitrostat] 0.4 mg Tablet, Sublingual 0.4 mg SUBLINGUAL Q5M PRN (Reason: Chest Pain) Rx Instructions: do not exceed 3 doses per episode spironolactone 25 mg tablet 50 mg PO DAILY@07 bumetanide 1 mg Tablet 1 mg PO DAILY Qty: 60 0RF sucralfate 1 gram Tablet 1 g PO QID pantoprazole 40 mg Tablet,Delayed Release (Dr/Ec) 40 mg PO BID Xifaxan 550 mg Tablet 550 mg PO BID Lantus Solostar U-100 Insulin 100 unit/mL (3 mL) insulin pen 20 unit SUBCUT DAILY@08 lactulose 20 gram/30 mL solution 10 g PO DAILY PRN (Reason: Constipation) ondansetron HCl 8 mg Tablet 8 mg PO Q8H PRN (Reason: Nausea) tramadol 50 mg Tablet 50 mg PO Q6H PRN (Reason: Pain) magnesium oxide [MagOx] 400 mg (241.3 mg magnesium) tablet 400 mg PO BID Qty: 60 0RF metolazone 2.5 mg tablet 2.5 mg PO DAILY Qty: 30 0RF Coding Level of Care Code ED Staff Antisubmarine Officer for Chg Fwd Exam Comprehensive
--- NOTE | 2021-11-28 09:39 | PC.NURSE ---
verbal order from ED physician for indwelling hernandez catheter placement and IV placement.
[2021-11-28 09:44] LABS: Basophils % 0.2 %; Lymphocytes # 0.4 10^3/uL (0.8-4.8); Lymphocytes % 7.7 %; Mean Corpuscular HGB Conc 29.9 g/dL (30.0-36.0); Mean Corpuscular Hemoglobin 24.9 pg (28.0-34.0); Mean Corpuscular Volume 83.3 fl (81-99); Mean Platelet Volume 8.7 fL (7.4-10.4); Monocytes # 0.4 10^3/uL (0.2-0.9); Monocytes % 8.2 %; Neutrophils # 3.78 10^3/uL (1.8-7.7); Neutrophils % 83.5 %; Nucleated Red Blood Cells % 0 %; Platelet Count 196 10^3/cmm (130-400); Red Blood Count 2.33 10^6/uL (4.1-5.3); Red Cell Distribution Width 15.9 % (12.1-15.1); White Blood Count 4.5 10^3/uL (4.0-10.0)
[2021-11-28 09:45] LABS: Alanine Aminotransferase 16 U/L (0-33); Albumin Level 3.2 g/dL (3.5-5.2); Alkaline Phosphatase 197 U/L (35-105); Anion Gap 16.9 (5-19); Aspartate Amino Transferase 42 U/L (0-32); Blood Urea Nitrogen 35 mg/dL (8-23); Calcium 9.1 mg/dL (8.5-10.5); Carbon Dioxide 20 mmol/L (22-29); Chloride 99 mmol/L (98-107); Globulin 3.2 g/dL (1.3-4.6); Glucose 156 mg/dL (65-115); Osmolality Calculated 285 mOsm/kg (285-295); Potassium 3.9 mmol/L (3.5-5.1); Sodium 132 mmol/L (136-145); Total Bilirubin 0.5 mg/dL (0.15-1.2); Total Protein 6.4 g/dL (6.6-8.7)
[2021-11-28 09:52] LABS: Hematocrit 19.4 % (37.0-47.0); Hemoglobin 5.8 g/dL (11.5-15.3)
--- NOTE | 2021-11-28 10:55 | XRR_ITS ---
PROCEDURE INFORMATION: Exam: XR Right Hip Exam date and time: 11/28/2021 11:31 AM Age: 76 years old Clinical indication: Fall with blunt right hip trauma. Pelvic trauma. TECHNIQUE: Imaging protocol: Radiologic exam of the Right hip. Views: 2 or 3 views hip with pelvis when performed. COMPARISON: CT abdomen pelvis wo con [id number] 06/28/2021 3:41 PM FINDINGS: Bones/joints: There is extensive hardware involving the right pelvis and acetabulum from prior ORIF. The right femoral head is completely obscured. Old hardware tracts in the proximal right femoral diaphysis. The sacrum and iliac wings are not well assessed secondary to overlying bowel gas/stool. No definite acute fracture is seen. Soft tissues: No gross soft tissue swelling. Vasculature: Atherosclerotic arterial calcifications are seen. XR/XR hip RT 2-3V wo/w pel* [id number] IMPRESSION: Extensive hardware involving the right pelvis and acetabulum from prior ORIF. Hardware severely compromises assessment obscures the femoral head. No gross acute fracture is identified. Consider CT to further assess clinically warranted.
--- NOTE | 2021-11-28 10:55 | CTR_ITS ---
PROCEDURE INFORMATION: Exam: CT Right Lower Extremity Without Contrast, Knee Exam date and time: 11/28/2021 12:46 PM Age: 76 years old Clinical indication: Injury or trauma; Fall; Blunt trauma; Knee; Right TECHNIQUE: Imaging protocol: CT of the Right lower extremity without contrast was performed. Exam focused on the knee. Axial, coronal and sagittal reformatted images were created and reviewed. 3D-renderin-D post-processed images and/or MIPs were created and reviewed. Radiation optimization: All CT scans at this facility use at least one of these dose optimization techniques: automated exposure control; mA and/or kV adjustment per patient size (includes targeted exams where dose is matched to clinical indication); or iterative reconstruction. COMPARISON: CR (LOW EXM, ) 11/28/2021 9:01 AM RADIATION DOSE METRICS: Total DLP (mGy-cm): 382.39 FINDINGS: Bones/joints: Osteopenia. Comminuted, moderately displaced and impacted fracture of the distal femoral metaphysis with the major proximal fragment perched on the superior aspect of the patella. No dislocation. Mild tricompartmental osteoarthrosis. Large hemarthrosis. Soft tissues: Soft tissue swelling. CT/CT knee RT wo con* [id number] IMPRESSION: 1. Distal femur fracture, as described above. 2. Additional findings, as above.
[2021-11-28] MEDS: HYDROmorphone 1 mg/mL INJ 1 mL 0.5 MG IVP (11:07)
[2021-11-28 11:13] LABS: Add Urine Microscopic? YES; Bilirubin Urine Neg (Negative); Blood Urine Neg (Negative); Glucose Urine UA Norm (Normal); Ketones Urine Negative (Negative); Leukocyte Esterase Urine Negative (Negative); Nitrate Urine Negative (Negative); Protein Urine Neg (Negative); Specific Gravity, Urine 1.015 (1.005-1.030); Urine Appearance Hazy (CLEAR); Urine Color Yellow (Yellow); Urobilinogen Urine Norm (Negative); pH Urine 5 (5-7)
[2021-11-28 11:14] LABS: Add Urine Culture? Yes; Bacteria Urine 4+ /hpf
--- NOTE | 2021-11-28 11:33 | P.CONIM_ITS ---
Providers/Reason For Consult Consulting Physician/Specialty*: Gilson Morejon DO/orthopedic surgery Reason for Consult*: Right distal femur fracture Requesting Physician: Dr. Sher (emergency department) Attending Physician: Jennifer Tellez MD Primary Care Provider: Che Holt DO History of Present Illness History of Present Illness Martha Moore is a 76 year old female presents today as a pleasant hard of hearing after sustaining a ground-level fall with pain and deformity to the right distal femur. She was brought in accompanied by her son. In the emergency department she is found to have a displaced and shortened right distal femur fracture. History is obtained from son as patient's hearing aids are and she is unable to hear for appropriate HPI. Per son patient is a diabetic and blood sugar was low middle of the night she subsequently got up ate a little something and then was going back to bed. Apparently patient had no prodromal symptoms and just mechanically slipped and fell landing onto her right knee. Son lives just 100 yards away from his parents home. Patient lives with her . Son states she is not on any anticoagulants. Patient had a remote history back in May of the what appears to be a right acetabulum fracture which was treated with ORIF she just was recently released from prison facility and home. She utilizes a wheelchair frequently but does utilize a walker around the home. Denies any loss of consciousness or head trauma. Patient found emergency department to have a low hemoglobin of 5.8 and she is already getting 2 units PRBC. Patient does have antibodies and requiring to be shipped from [place]. Would recommend we have extra on hold for surgery. Patient son states that she has been worked up for low hemoglobin for multiple years with multiple doctors and they have not found any reason as to why her hemoglobin continues to slowly drop and she has had multiple episodes requiring transfusions in the past without any trauma. Patient's son denies that she is being treated for any osteoporosis and not on any bisphosphonates. Currently she has been cleared for her ORIF acetabulum for weightbearing as tolerated to the right lower extremity. From this standpoint patient medically needs to be better optimized will be admitted by the hospitalist team with plans for hopefully surgery tomorrow if patient is medically optimized and stable for surgery. Review of Systems General: Reports: 10 or more systems reviewed and unremarkable except in HPI and below Medications/Allergies Home Medications Medication Instructions Recorded Confirmed Last Taken Type ferrous sulfate 325 mg (65 mg 325 mg PO BID@07,17 06/11/21 11/28/21 11/27/21 History iron) tablet insulin lispro 100 unit/mL See Rx Instructions .Route .COMPLEX 06/11/21 11/28/21 11/27/21 History subcutaneous pen (Humalog KwikPen (U-100) Insulin) melatonin 5 mg tablet 5 mg PO BEDTIME@06/11/21 11/28/21 11/27/21 History mirtazapine 7.5 mg tablet 7.5 mg PO BEDTIME@06/11/21 11/28/21 11/27/21 History polyethylene glycol 3350 17 17 g PO DAILY@06/11/21 11/28/21 11/27/21 History gram/dose oral powder acetaminophen 500 mg tablet 1,000 mg PO Q6H PRN Pain 06/16/21 11/28/21 09/11/21 History magnesium hydroxide 400 mg/5 mL 30 ml PO DAILY PRN Constipation 06/16/21 11/28/21 Unknown History oral suspension (Milk of Magnesia) nitroglycerin 0.4 mg sublingual 0.4 mg sublingual Q5M PRN Chest 06/28/21 11/28/21 Unknown History tablet (Nitrostat) Pain spironolactone 25 mg tablet 50 mg PO DAILY@07/06/21 11/28/21 11/27/21 History ondansetron HCl 8 mg tablet 8 mg PO Q8H PRN Nausea 08/22/21 11/28/21 Unknown History tramadol 50 mg tablet 50 mg PO Q6H PRN Pain 08/22/21 11/28/21 Unknown History magnesium oxide 400 mg (241.3 mg 400 mg PO BID #60 tabs 08/25/21 11/28/21 11/27/21 Rx magnesium) tablet (MagOx) metolazone 2.5 mg tablet 2.5 mg PO DAILY #30 tabs 08/25/21 11/28/21 11/27/21 Rx bumetanide 1 mg tablet 1 mg PO DAILY #60 tabs 09/13/21 11/28/21 11/27/21 Rx insulin glargine 100 unit/mL (3 20 unit SUBCUT DAILY@11/28/21 11/28/21 11/27/21 History mL) subcutaneous pen (Lantus Solostar U-100 Insulin) lactulose 20 gram/30 mL oral 10 g PO DAILY PRN Constipation 11/28/21 11/28/21 Unknown History solution pantoprazole 40 mg tablet,delayed 40 mg PO BID 11/28/21 11/28/21 11/27/21 History release rifaximin 550 mg tablet (Xifaxan) 550 mg PO BID 11/28/21 11/28/21 11/27/21 History sucralfate 1 gram tablet 1 g PO QID 11/28/21 11/28/21 11/27/21 History Allergies Allergy/AdvReac Type Severity Reaction Status Date / Time aspirin Allergy Intermediate rash Verified 07/06/21 11:20 atropine Allergy Intermediate unknown Verified 07/06/21 11:20 ciprofloxacin Allergy ALGY-Rash Verified 07/06/21 11:20 hydrocodone Allergy Unknown Verified 07/06/21 11:20 iodine Allergy ALGY-Hives Verified 07/06/21 11:20 meperidine [From Demerol] Allergy ADR-Nausea Verified 07/06/21 11:20 Sulfa (Sulfonamide Allergy ALGY-Rash Verified 07/06/21 11:20 Antibiotics) PFSH Acute PFSH: Medical History Abdominal ascites Abdominal pain Abnormal colonoscopy Anemia AVM (arteriovenous malformation) AVM (arteriovenous malformation) of colon with hemorrhage C. difficile colitis Cerebral aneurysm Diverticulosis Fluid overload GI bleed Esophageal variceal banding on 2 occasions in the past, EGD colonoscopy October 2015 upper endoscopy showed esophageal varices with no bleeding or stigmata of bleeding. Colonoscopy showed multiple AVMs in the ascending and proximal transverse colon which were cauterized. Extensive diverticulosis with internal and external hemorrhoids were noted. 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 (LLOYD) LLOYD (nonalcoholic steatohepatitis) Portal hypertension EGD esophageal banding on 03/25/16 she has been transfused multiple times Type 2 diabetes mellitus Surgical History S/P endoscopy Family History Other Family history non-contributory Social History Smoking and tobacco status: never smoked Alcohol intake: never Housing: House Vitals/I&O/Wt Last Vital Signs Temp 98.2 F 11/28/21 08:26 Pulse 87 11/28/21 08:47 Resp 18 11/28/21 08:47 BP 130/64 11/28/21 08:47 Pulse Ox 100 11/28/21 08:47 O2 Del Method 11/28/21 08:47 Weight last 48 hrs Weight 159 lb Physical Exam Narrative: Orthopedic orthopedic examination: Examination of patient's bilateral upper extremities demonstrates no tenderness to palpation of the bilateral shoulders, humerus, elbows, forearms, wrists and hands. Small abrasions noted throughout the left upper extremity. No apparent head trauma. Gross motor and sensation intact to the bilateral upper extremities distal pulses palpable hands are warm well perfused compartments soft and compressible. Examination left lower extremity demonstrates negative logroll, patient is able to wiggle toes plantarflex dorsiflex ankle. No swelling or ecchymosis noted. There is a small superficial abrasion over the anterior aspect of the knee directly over the patella. This does not appear deep and no palpable joint effusion noted. Gross motor sensation intact to light touch to the left lower extremity left lower extremity warm well perfused compartment soft and compressible distal pulses palpable. Examination right lower extremity demonstrates noticeable deformity to the right knee no evidence of skin tenting. Noticeable joint effusion and swelling noted. Prior posterior hip incision noted well-healed No tenderness to palpation to the pelvis or with compression testing no tenderness to palpation of the hip anterior laterally. Significant tenderness to palpation of deformity at the distal femur. Right lower extremity is warm and well-perfused. Her distal pulses are palpable 2+. She is able to wiggle her toes but unable to dorsiflex her ankle secondary to pain, there does appear to be firing of tibialis anterior muscle but patient significantly guarded secondary to pain. She denies a sensation intact to light touch at the SPN/DPN/tibial/saphenous/sural nerve distribution. No tenderness to palpation over the tibia ankle or foot. Compartments are soft and compressible throughout the right lower extremity Urinary Catheter Management: Meyer: Cath Placed During This Visit: yes Urinary Catheter Date of Insertion: 11/28/21 Urinary Catheter Time of Insertion: 10:17 Data : 11/28/21 13:06 11/28/21 08:55 Xray Ortho: My impression: X-rays of the right femur demonstrate displaced impacted right distal femur supracondylar femur fracture. X-rays of the pelvis demonstrate previous ORIF acetabulum was x-ray of the pelvis stem stable fixation and healed. No fractures of the proximal femur noted and no prior hardware. CT scan of right knee ordered and pending to evaluate intra-articular extension and length of distal bone stock. A&P Assessment and plan (1) Femur fracture, right: Displaced and impacted right distal femur fracture Status: Acute Plan Admit to hospitalist team as primary for medical management as well as preoperative clearance and optimization for surgical intervention -Nonweightbearing right lower extremity -Knee immobilizer applied to right lower extremity -Ice and elevate as needed -Pain control -Hemoglobin 5.8 receiving 2 units PRBC would recommend we have 2 units on hold for surgery tomorrow -Patient may have diet today, n.p.o. at midnight -Imaging reviewed with CT scan pending to evaluate if possible ORIF versus retrograde nail. -Hold a.m. anticoagulation -Plan for OR tomorrow for ORIF versus retrograde nail pending CT results -Patient and son understand and agree with current plan. All questions answered. Consult Attestations Medical Necessity Statement: Patient sustained a right distal femur fracture requiring hospitalization and surgical intervention Coding Level of Care Code Acute Surveyor Oil Well Directional for Erika Camacho Diagnoses Femur fracture, right S72.91XA Time Spent (min) 60
--- NOTE | 2021-11-28 11:43 | PC.NURSE ---
Surgeon at bedside speaking with patient.
--- NOTE | 2021-11-28 12:13 | PM.HP ---
Providers/Chief Complaint Admitting Physician: Jennifer Tellez MD Primary Care Provider: Che Holt DO Chief Complaint: LEFT SHOUDLER/RIGHT KNEE PAIN S/P FALL History of Present Illness Martha Moore is a 76 year old female Martha Moore is a 75 year old female with a past medical history of Menard, liver cirrhosis, recurrent ascites, history of recurrent GI bleed, portal hypertension, history of esophageal varices, history of deconditioning, history of AV malformations, history of C. difficile colitis, history of coagulopathy, CAD, diabetes, insulin-dependent, history of cerebral aneurysm status post clipping, who is legally deaf, who is legally deaf, who presents [facility] due to a ground-level fall. She states her blood sugar was low and therefore she was going towards the kitchen to get something to eat. When she tried to get into bed she lost her balance and fell forward striking her arm and knees on the ground. Denies neck pain, denies numbness tingling weakness, shortness of breath or chest pain. It was a mechanical fall. She did not have any lightheadedness or dizziness prior to falling.Patient does state that she may have had bloody stool 2 days prior to admission and has been generally feeling bit weak lately. Otherwise is ok. Hard of hearing. ED course: 130/64, respiratory 18, pulse 87, temperature 98.2, pulse ox 100 on room air. Knee x-ray and femur x-ray showed comminuted displaced right distal femoral supracondylar fracture. Hemoglobin level 5.8. 2 units packed RBC ordered. Dr. Morejon orthopedic surgeon was consulted. Planning to take patient to surgery in a.m. Patient will be admitted to medicine at this time. Patient was most recently admitted in August for altered mental status secondary to UTI and elevated ammonia levels. She was discharged on Protonix and Carafate since her hemoglobin was also 7.1. There was no active GI bleed at that time. She was discharged back to local [facility]. At that hospital visit she also had a UTI positive for Proteus and was given Augmentin at discharge. Medications/Allergies Home Medications Medication Instructions Recorded Confirmed Last Taken Type ferrous sulfate 325 mg (65 mg 325 mg PO BID@07,17 06/11/21 11/28/21 11/27/21 History iron) tablet insulin lispro 100 unit/mL See Rx Instructions .Route .COMPLEX 06/11/21 11/28/21 11/27/21 History subcutaneous pen (Humalog KwikPen (U-100) Insulin) melatonin 5 mg tablet 5 mg PO BEDTIME@06/11/21 11/28/21 11/27/21 History mirtazapine 7.5 mg tablet 7.5 mg PO BEDTIME@06/11/21 11/28/21 11/27/21 History polyethylene glycol 3350 17 17 g PO DAILY@06/11/21 11/28/21 11/27/21 History gram/dose oral powder acetaminophen 500 mg tablet 1,000 mg PO Q6H PRN Pain 06/16/21 11/28/21 09/11/21 History magnesium hydroxide 400 mg/5 mL 30 ml PO DAILY PRN Constipation 06/16/21 11/28/21 Unknown History oral suspension (Milk of Magnesia) nitroglycerin 0.4 mg sublingual 0.4 mg sublingual Q5M PRN Chest 06/28/21 11/28/21 Unknown History tablet (Nitrostat) Pain spironolactone 25 mg tablet 50 mg PO DAILY@07/06/21 11/28/21 11/27/21 History ondansetron HCl 8 mg tablet 8 mg PO Q8H PRN Nausea 08/22/21 11/28/21 Unknown History tramadol 50 mg tablet 50 mg PO Q6H PRN Pain 08/22/21 11/28/21 Unknown History magnesium oxide 400 mg (241.3 mg 400 mg PO BID #60 tabs 08/25/21 11/28/21 11/27/21 Rx magnesium) tablet (MagOx) metolazone 2.5 mg tablet 2.5 mg PO DAILY #30 tabs 08/25/21 11/28/21 11/27/21 Rx bumetanide 1 mg tablet 1 mg PO DAILY #60 tabs 09/13/21 11/28/21 11/27/21 Rx insulin glargine 100 unit/mL (3 20 unit SUBCUT DAILY@11/28/21 11/28/21 11/27/21 History mL) subcutaneous pen (Lantus Solostar U-100 Insulin) lactulose 20 gram/30 mL oral 10 g PO DAILY PRN Constipation 11/28/21 11/28/21 Unknown History solution pantoprazole 40 mg tablet,delayed 40 mg PO BID 11/28/21 11/28/21 11/27/21 History release rifaximin 550 mg tablet (Xifaxan) 550 mg PO BID 11/28/21 11/28/21 11/27/21 History sucralfate 1 gram tablet 1 g PO QID 11/28/21 11/28/21 11/27/21 History Allergies Allergy/AdvReac Type Severity Reaction Status Date / Time aspirin Allergy Intermediate rash Verified 07/06/21 11:20 atropine Allergy Intermediate unknown Verified 07/06/21 11:20 ciprofloxacin Allergy ALGY-Rash Verified 07/06/21 11:20 hydrocodone Allergy Unknown Verified 07/06/21 11:20 iodine Allergy ALGY-Hives Verified 07/06/21 11:20 meperidine [From Demerol] Allergy ADR-Nausea Verified 07/06/21 11:20 Sulfa (Sulfonamide Allergy ALGY-Rash Verified 07/06/21 11:20 Antibiotics) PFSH Acute PFSH: Medical History Abdominal ascites Abdominal pain Abnormal colonoscopy Anemia AVM (arteriovenous malformation) AVM (arteriovenous malformation) of colon with hemorrhage C. difficile colitis Cerebral aneurysm Diverticulosis Fluid overload GI bleed Esophageal variceal banding on 2 occasions in the past, EGD colonoscopy October 2015 upper endoscopy showed esophageal varices with no bleeding or stigmata of bleeding. Colonoscopy showed multiple AVMs in the ascending and proximal transverse colon which were cauterized. Extensive diverticulosis with internal and external hemorrhoids were noted. 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 (MENARD) MENARD (nonalcoholic steatohepatitis) Portal hypertension EGD esophageal banding on 03/25/16 she has been transfused multiple times Type 2 diabetes mellitus Surgical History S/P endoscopy Family History Other Family history non-contributory Social History Smoking and tobacco status: never smoked Alcohol intake: never Housing: House Vitals/I&O/Wt Last Vital Signs Temp 98.2 F 11/28/21 08:26 Pulse 83 11/28/21 11:45 Resp 21 H 11/28/21 11:45 BP 116/55 11/28/21 11:45 Pulse Ox 98 11/28/21 11:45 O2 Del Method 11/28/21 08:47 Weight last 48 hrs Weight 72.121 kg Physical Exam Narrative: General: Alert oriented x3, patient seen laying in bed. Very hard of hearing HEENT: Normocephalic, atraumatic, EOMI, breathing comfortably on room air. Cardio: Regular rate rhythm, normal S1-S2, Respiratory: Clear to auscultation bilaterally, no wheezes no rhonchi GI: Abdomen soft, nontender, nondistended, bowel sounds + Extremities:right leg in a brace Urinary Catheter Management: Meyer: Cath Placed During This Visit: yes Urinary Catheter Date of Insertion: 11/28/21 Urinary Catheter Time of Insertion: 10:17 Data : 11/28/21 13:06 11/28/21 08:55 A&P Assessment and plan (1) Femur fracture, right: Status: Acute (2) Anemia: Status: Acute (3) Iron deficiency anemia secondary to blood loss (chronic): Status: Acute (4) Portal hypertension: Status: Acute (5) Liver cirrhosis secondary to nonalcoholic steatohepatitis (MENARD): Status: Acute (6) AVM (arteriovenous malformation) of colon with hemorrhage: Status: Acute Plan #Acute right distal femoral supracondylar fracture #Acute blood loss anemia, hemoglobin 5.8 #History of recurrent GI bleed, esophageal varices, AV malformations, C. difficile colitis, history of colopathy #History of coronary artery disease, diabetes, insulin-dependent #History of cerebral aneurysm status post clipping #Legally deaf, #Liver cirrhosis secondary to Menard, recurrent ascites ? Transfused 2 units packed RBC. Check H&H every 8 hours ? Transfusion goal Hb 8 ? Check EKG ? Last echo February 2021: LVEF 55 to 60%, normal diastolic function, mild mitral regurgitation, mild pulmonic regurgitation, mild to moderate tricuspid regurg. -Continue Bumex 1 mg daily, spironolactone 50 daily ? Continue Lantus 20 units subcu daily. For tonight we will give her 15 units as she will be n.p.o. after midnight ? Continue mirtazapine, Protonix 40 IV twice daily ? We will check BNP ? Rifaximin 550 p.o. twice daily ? Continue Carafate ? Revised cardiac risk index: Patient is a class IV risk 15% 30-day risk of MN or cardiac arrest. -Check FOBT. - Patient is high risk for surgery and would need to be optimized medically. I do not recommend her going to OR in AM. - Will consult GI for input. - Had a discussion with Dr. Morejon. We will check neck CT and head CT as per his request - Will type and cross 4 units of blood as they need to arrive from [facility] due to patient's blood typing and antigen screen. Full code DVT prophylaxis: SCDs Attestations Medical Necessity Statement*: Will require greater than 2 midnight stay for management of acute blood loss anemia and femoral supracondylar fracture. Coding Level of Care Code Acute [employer] Estate Loan [employer]or for Chg Fwd Diagnoses Femur fracture, right S72.91XA Anemia D64.9 Iron deficiency anemia secondary to blood loss (chronic) D50.0 Portal hypertension K76.6 Liver cirrhosis secondary to nonalcoholic steatohepatitis (MENARD) K75.81; K74.60 AVM (arteriovenous malformation) of colon with hemorrhage K55.21
[2021-11-28] MEDS: pantoprazole 40 mg SDV IVP (13:07)
[2021-11-28] MEDS: sucralfate 1 gm Tablet PO ×3 (13:08→20:15)
[2021-11-28] MEDS: cefTRIAXone 1,000 MG in sodium chloride 0.9% (plus) 50 ML 100 MG IV (13:08)
[2021-11-28] MEDS: TRAMadol 50 mg Tablet PO (13:10)
--- NOTE | 2021-11-28 13:16 | PC.NURSE ---
report given to FAUSTO Maynard to assume care.
[2021-11-28 13:19] LABS: Hemoglobin 5.6 g/dL (11.5-15.3)
[2021-11-28 13:20] LABS: Hematocrit 19.6 % (37.0-47.0)
[2021-11-28 13:29] LABS: Chol HDL Ratio 1.74 mg/dL (0.0-4.40); Cholesterol 127 mg/dL (0-200); HDL Cholesterol 73 mg/dL (60-100); LDL Cholesterol Calculated 43 mg/dL (50-129); LDL HDL Ratio 0.59 RATIO (0.00-3.22); Thyroid Stimulating Hormone 1.61 uIU/mL (0.27-4.20); Triglycerides 55 mg/dL (0-150)
[2021-11-28 13:30] LABS: NT Pro B Type Natriuretic Pept 1117 pg/mL (0-450); Procalcitonin 0.32 ng/mL (0-0.5)
--- NOTE | 2021-11-28 13:45 | PC.PT ---
PT went to ER to place knee brace and when the nurse was spoken with a knee brace had already been placed on the patient by someone in surgery. No brace needed at this time.
[2021-11-28 14:12] LABS: Estmated Average Glucose 108; Hemoglobin A1C 5.4 % (4.0-6.0)
--- NOTE | 2021-11-28 14:14 | PC.NURSE ---
Report to Antonieta LAMBERT at this time.
[2021-11-28] MEDS: ondansetron 2 mg/ML SDV 2 mL 4 MG IVP (16:36)
[2021-11-28 16:50] LABS: Glucose Point of Care 132 mg/dL (70-110)
[2021-11-28] MEDS: ferrous sulfate EC 325 mg Tablet PO (17:20)
--- NOTE | 2021-11-28 17:20 | CTR_ITS ---
PROCEDURE INFORMATION: Exam: CT Head Without Contrast Exam date and time: 11/29/2021 12:42 AM Age: 76 years old Clinical indication: Injury or trauma; Fall; Blunt trauma (contusions or hematomas); Prior surgery; Surgery date: 6+ months; Surgery type: PT nonverbal TECHNIQUE: Imaging protocol: Computed tomography of the head without contrast. Radiation optimization: All CT scans at this facility use at least one of these dose optimization techniques: automated exposure control; mA and/or kV adjustment per patient size (includes targeted exams where dose is matched to clinical indication); or iterative reconstruction. COMPARISON: CT head wo con* [id number] 09/11/2021 2:29 PM RADIATION DOSE METRICS: Total DLP (mGy-cm): 1023.78 FINDINGS: Tubes, catheters and devices: Left-sided cochlear implant is again noted. Brain: Mild brain atrophy is noted. No hemorrhage or evidence of acute infarction. Cerebral ventricles: No ventriculomegaly. Paranasal sinuses: Visualized sinuses are unremarkable. No fluid levels. Mastoid air cells: Visualized mastoid air cells are well aerated. Bones/joints: Right temporal craniotomy is noted. No acute fracture is seen. Soft tissues: Mild soft tissue swelling is present in the scalp at vertex. Other findings: An aneurysm clip is again seen near the right anterior clinoid. CT/CT head wo con* [id number] IMPRESSION: No acute intracranial abnormality.
--- NOTE | 2021-11-28 17:20 | CTR_ITS ---
PROCEDURE INFORMATION: Exam: CT Cervical Spine Without Contrast Exam date and time: 11/29/2021 12:47 AM Age: 76 years old Clinical indication: Injury or trauma; Fall; Blunt trauma TECHNIQUE: Imaging protocol: Computed tomography of the cervical spine without contrast. Radiation optimization: All CT scans at this facility use at least one of these dose optimization techniques: automated exposure control; mA and/or kV adjustment per patient size (includes targeted exams where dose is matched to clinical indication); or iterative reconstruction. COMPARISON: CT cervical spin wo con* [id number] 07/03/2017 3:19 PM RADIATION DOSE METRICS: Total DLP (mGy-cm): 162.77 FINDINGS: Bones/joints: Mild degenerative changes are again seen in the cervical spine. No acute fracture. Spinal alignment is normal. Lungs: Lung apices are normal. Soft tissues: Unremarkable. CT/CT cervical spin wo con* [id number] IMPRESSION: No cervical spine fracture.
--- NOTE | 2021-11-28 17:55 | PM.CONSULT ---
Providers/Reason For Consult Consulting Physician/Specialty*: Raymond Armando MD Reason for Consult*: Anemia concern of lower GI bleed Requesting Physician: Dr. Tellez Attending Physician: Jennifer Tellez MD Primary Care Provider: Che Holt DO History of Present Illness History of Present Illness Ms. savannah Moore is a pleasant 76 year old female with hard hearing issues, unfortunately she had a right femur fracture and got admitted to the hospitalist service for further evaluation and orthopedic consultation was initiated for potential intervention. Patient is well-known with multiple medical comorbidities; Menard, liver cirrhosis, recurrent ascites, history of recurrent GI bleed, portal hypertension, history of esophageal varices, history of deconditioning, history of AV malformations, history of C. difficile colitis, history of coagulopathy, CAD, diabetes, insulin-dependent, history of cerebral aneurysm status post clipping, who is legally deaf. Patient was found to be profoundly anemic and allegedly there was a mention of a lower GI bleed with a current hemoglobin of 5.6 and hematocrit 19.6 with platelet count 196. Patient is scheduled to go for orthopedic intervention perhaps tomorrow General surgery was consulted for further evaluation. Upon further questioning the patient she denies history of hematemesis and no quite clear history about hematochezia so I elected to perform a digital rectal examination in the presence of female nursing staff silk hanger Ms. Fung and Alicia with appropriate positioning of the patient in the right lateral position maintaining the integrity and stability of the right femur, and was found to have soft brown stool no evidence of blood on the examining finger or evidence of anorectal masses. Stable external hemorrhoidal tissues without complication. Review of Systems General: Reports: 10 or more systems reviewed and unremarkable except in HPI and below Medications/Allergies Home Medications Medication Instructions Recorded Confirmed Last Taken Type ferrous sulfate 325 mg (65 mg 325 mg PO BID@07,17 06/11/21 11/28/21 11/27/21 History iron) tablet insulin lispro 100 unit/mL See Rx Instructions .Route .COMPLEX 06/11/21 11/28/21 11/27/21 History subcutaneous pen (Humalog KwikPen (U-100) Insulin) melatonin 5 mg tablet 5 mg PO BEDTIME@06/11/21 11/28/21 11/27/21 History mirtazapine 7.5 mg tablet 7.5 mg PO BEDTIME@06/11/21 11/28/21 11/27/21 History polyethylene glycol 3350 17 17 g PO DAILY@06/11/21 11/28/21 11/27/21 History gram/dose oral powder acetaminophen 500 mg tablet 1,000 mg PO Q6H PRN Pain 06/16/21 11/28/21 09/11/21 History magnesium hydroxide 400 mg/5 mL 30 ml PO DAILY PRN Constipation 06/16/21 11/28/21 Unknown History oral suspension (Milk of Magnesia) nitroglycerin 0.4 mg sublingual 0.4 mg sublingual Q5M PRN Chest 06/28/21 11/28/21 Unknown History tablet (Nitrostat) Pain spironolactone 25 mg tablet 50 mg PO DAILY@07/06/21 11/28/21 11/27/21 History ondansetron HCl 8 mg tablet 8 mg PO Q8H PRN Nausea 08/22/21 11/28/21 Unknown History tramadol 50 mg tablet 50 mg PO Q6H PRN Pain 08/22/21 11/28/21 Unknown History magnesium oxide 400 mg (241.3 mg 400 mg PO BID #60 tabs 08/25/21 11/28/21 11/27/21 Rx magnesium) tablet (MagOx) metolazone 2.5 mg tablet 2.5 mg PO DAILY #30 tabs 08/25/21 11/28/21 11/27/21 Rx bumetanide 1 mg tablet 1 mg PO DAILY #60 tabs 09/13/21 11/28/21 11/27/21 Rx insulin glargine 100 unit/mL (3 20 unit SUBCUT DAILY@11/28/21 11/28/21 11/27/21 History mL) subcutaneous pen (Lantus Solostar U-100 Insulin) lactulose 20 gram/30 mL oral 10 g PO DAILY PRN Constipation 11/28/21 11/28/21 Unknown History solution pantoprazole 40 mg tablet,delayed 40 mg PO BID 11/28/21 11/28/21 11/27/21 History release rifaximin 550 mg tablet (Xifaxan) 550 mg PO BID 11/28/21 11/28/21 11/27/21 History sucralfate 1 gram tablet 1 g PO QID 11/28/21 11/28/21 11/27/21 History Allergies Allergy/AdvReac Type Severity Reaction Status Date / Time aspirin Allergy Intermediate rash Verified 11/28/21 18:00 atropine Allergy Intermediate unknown Verified 11/28/21 18:00 ciprofloxacin Allergy ALGY-Rash Verified 11/28/21 18:00 hydrocodone Allergy Unknown Verified 11/28/21 18:00 iodine Allergy ALGY-Hives Verified 11/28/21 18:00 meperidine [From Demerol] Allergy ADR-Nausea Verified 11/28/21 18:00 Sulfa (Sulfonamide Allergy ALGY-Rash Verified 11/28/21 18:00 Antibiotics) Current Medications Generic Name Dose Route Start Last Admin Trade Name Freq PRN Reason Stop Dose Admin Ferrous Sulfate 325 mg 11/28/21 17:00 11/28/21 17:20 Ferrous Sulfate Ec 325 Mg Tablet PO 325 mg BID@07,17 RAMYA Administration Ceftriaxone Sodium 1,000 mg/ 50 mls @ 100 mls/hr 11/28/21 13:00 11/28/21 14:11 Sodium Chloride IV Infused Q24H [facility] Infusion Protocol Insulin Human Lispro 0 unit 11/28/21 18:00 11/28/21 17:02 Insulin Lispro 100 Unit/1 Ml SUBCUT Not Given WM&BEDTIME RAMYA Protocol Ondansetron HCl 4 mg 11/28/21 12:51 11/28/21 16:36 Ondansetron 2 Mg/Ml Sdv 2 Ml IVP 4 mg Q8H PRN Administration vomiting, or N/V if npo Pantoprazole Sodium 40 mg 11/28/21 13:00 11/28/21 13:07 Pantoprazole 40 Mg Sdv IVP 40 mg Q12H RAMYA Administration Sucralfate 1 gm 11/28/21 13:00 11/28/21 17:20 Sucralfate 1 Gm Tablet PO 1 gm QID RAMYA Administration Tramadol HCl 50 mg 11/28/21 12:56 11/28/21 13:10 Tramadol 50 Mg Tablet PO 50 mg Q6H PRN Administration Pain PFSH Acute PFSH: Medical History Abdominal ascites Abdominal pain Abnormal colonoscopy Anemia AVM (arteriovenous malformation) AVM (arteriovenous malformation) of colon with hemorrhage C. difficile colitis Cerebral aneurysm Diverticulosis Fluid overload GI bleed Esophageal variceal banding on 2 occasions in the past, EGD colonoscopy October 2015 upper endoscopy showed esophageal varices with no bleeding or stigmata of bleeding. Colonoscopy showed multiple AVMs in the ascending and proximal transverse colon which were cauterized. Extensive diverticulosis with internal and external hemorrhoids were noted. 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 (MENARD) MENARD (nonalcoholic steatohepatitis) Portal hypertension EGD esophageal banding on 03/25/16 she has been transfused multiple times Type 2 diabetes mellitus Surgical History S/P endoscopy Family History Other Family history non-contributory Social History Smoking and tobacco status: never smoked Alcohol intake: never Housing: House Vitals/I&O/Wt Last Vital Signs Temp 98.2 F 11/28/21 16:00 Pulse 79 11/28/21 16:06 Resp 16 11/28/21 16:00 BP 105/58 11/28/21 16:00 Pulse Ox 97 11/28/21 16:00 O2 Del Method 11/28/21 16:00 11/28/21 11/28/21 11/28/21 06:59 14:59 22:59 Intake Total 50 / 50 Balance 50 / 50 Weight last 48 hrs Weight 159 lb Physical Exam Narrative: Patient is conscious alert oriented X3 No apparent distress BMI 27.3 Head and neck examination PERRLA no masses no cervical lymphadenopathy no jaundice Cardiac examination audible S1-S2 no murmurs no gallops no arrhythmias Chest is clear bilateral,abscence of Rhonchi or wheezes,no surgical emphysema Abdomen nontender nondistended soft no organomegaly guarding or rigidity/no signs of peritonitis Right lower extremity with femur fracture stabilized. Distal rectal examination was done in the presence of female silk hanger nursing staff Yessica, examination shows no evidence of blood on the examining finger, soft brown stool and evidence of uncomplicated external hemorrhoids. No evidence of fistulae or perianal induration or abscess formation or rectal masses. Urinary Catheter Management: Meyer: Cath Placed During This Visit: yes Urinary Catheter Date of Insertion: 11/28/21 Urinary Catheter Time of Insertion: 10:17 Data : 11/29/21 07:18 11/29/21 07:18 A&P Assessment and plan (1) GI bleed: After thorough history physical examination and reviewing the chart, patient likely has chronic anemia and with the femur fracture it got worse. I do recommend that the patient will be transfused blood per protocol and proceed with orthopedic stabilization of the femur fracture. I do not see any clinical proof of acute GI bleed. I would like to have the patient follow-up with me as an outpatient and to review all her endoscopy reports from outside facilities perhaps she would be an appropriate candidate for capsule endoscopy which I can provide this service once the patient met the appropriate criteria and clinical indication. Thank you for consulting general surgery to participate taking care Status: Suspected Consult Attestations Medical Necessity Statement: Per admitting service Time Spent in Patient Care: 16 - 35 minutes Coding Level of Care Code Acute Recordist Chief for Erika Camacho Diagnoses GI bleed K92.2
[2021-11-28] MEDS: mirtazapine 15 mg Tablet 7.5 MG PO (18:12)
[2021-11-28] MEDS: acetaminophen 325 mg Tablet 650 MG PO (18:12)
[2021-11-28] MEDS: sodium chloride 0.9% (100 ml) 100 ML 125 ML (18:13)
[2021-11-28] MEDS: diphenhydrAMINE 25 mg Capsule PO (20:15)
[2021-11-28 21:23] LABS: Glucose Point of Care 280 mg/dL (70-110)
[2021-11-28] MEDS: insulin lispro 100 unit/1 mL SUBCUT (21:27)
[2021-11-29] VITALS (41 sets, daily range): BP systolic 93–143; BP diastolic 51–78; PULSE 50–92; RESP 16–24; TEMP 36.1–37.4; O2SAT 91–99
--- NOTE | 2021-11-29 | XR_ITS ---
WS: [id number] INTRAOPERATIVE TECHNIQUE: 7 Spot fluoroscopic images for intraoperative purposes. FLUOROSCOPY TIME: 252.6 seconds CLINICAL INFORMATION: orif of right femur COMPARISON: November 28, 2021 FINDINGS: Intramedullary teagan fixation RIGHT femur. Femoral teagan extends into the distal femur with screw fixatio n. Prior postoperative changes plate and screw fixation RIGHT acetabulum and RIGHT pubic rami. XR/XR femur RT min 2V* [id number] IMPRESSION: Images obtained for intraoperative purposes.
--- NOTE | 2021-11-29 | SCC_ITS ---
Procedure done: Right distal femur open reduction internal fixation with retrograde nail 252.6 seconds of fluoroscopic guidance, for a cumulative dose of 26.72 mGy, was provided to Dr. Morejon by the radiology department. C-arm images of the RIGHT femur were saved for the patient's permanent record. [facility]
--- NOTE | 2021-11-29 00:24 | XRR_ITS ---
PROCEDURE INFORMATION: Exam: XR Left Knee Exam date and time: 11/29/2021 12:52 AM Age: 76 years old Clinical indication: Injury or trauma; Fall; Blunt trauma; Knee; Left; Additional info: Knee pain post fall TECHNIQUE: Imaging protocol: Radiologic exam of the Left knee. Views: 1 or 2 views. COMPARISON: CR (LOW EXM, ) 11/28/2021 8:56 AM FINDINGS: Bones/joints: There is moderate loss of joint space seen within the 3 compartments of the left knee suggesting tricompartmental osteoarthritic changes. Soft tissues: Normal. XR/XR knee LT 1-2V [id number] IMPRESSION: There are no acute osseous findings.
[2021-11-29] MEDS: acetaminophen 325 mg Tablet 650 MG PO (01:26)
[2021-11-29] MEDS: pantoprazole 40 mg SDV IVP ×2 (01:27→13:25)
--- NOTE | 2021-11-29 06:15 | PC.NURSE ---
PT was running fever at pass off. She had been given a small amount of blood at the time I took over. Ino was order by the doctor. She seemed much better after she took that. Fever had gone down. Also I was told she is in frequently for low HEM so this is normal for her. That she runs fever with blood products. Right before the second bag of blood was given she had small tremors in the arms and hands. I called the doctor to come look at her. She said she does that from time to time. No known reason for it at this time. bed is low and locked, call light in reach.
[2021-11-29 06:21] LABS: Glucose Point of Care 163 mg/dL (70-110)
[2021-11-29 07:40] LABS: Basophils % 0.7 %; Eosinophils % 0.7 %; Hematocrit 26.2 % (37.0-47.0); Hemoglobin 8.1 g/dL (11.5-15.3); Lymphocytes # 0.4 10^3/uL (0.8-4.8); Lymphocytes % 15.4 %; Mean Corpuscular HGB Conc 30.9 g/dL (30.0-36.0); Mean Corpuscular Hemoglobin 25.8 pg (28.0-34.0); Mean Corpuscular Volume 83.4 fl (81-99); Mean Platelet Volume 8.9 fL (7.4-10.4); Monocytes # 0.4 10^3/uL (0.2-0.9); Monocytes % 13.3 %; Neutrophils # 1.93 10^3/uL (1.8-7.7); Neutrophils % 69.2 %; Nucleated Red Blood Cells % 0 %; Platelet Count 165 10^3/cmm (130-400); Red Blood Count 3.14 10^6/uL (4.1-5.3); Red Cell Distribution Width 15.9 % (12.1-15.1); White Blood Count 2.8 10^3/uL (4.0-10.0)
--- NOTE | 2021-11-29 07:47 | P.PN_ITS ---
Subjective Subjective: Patient seen and examined this morning. Patient is hard of hearing. Knee immobilizer in place to right lower extremity. Patient is able to follow commands however is very hard of hearing. Patient received 2 units of PRBC for optimization yesterday. Recheck hemoglobin this morning is 8.1. I c ontacted the hospitalist who at this point we have had the general surgery team evaluate for her low chronic hemoglobin and potential GI loss and at this standpoint they feel patient stable from their perspective and okay to proceed with surgery. I contacted the hospitalist this morning and we discussed patient's case and at this point patient is preoperatively cleared from their perspective and with my goal of having patient optimized to hemoglobin of more than 8 prior to surgery we will proceed with surgery. Patient will receive TXA perioperatively as well as I have set up that patient has 4 units of blood available and on hold as she did have antibodies and blood needed to be shipped from an outside facility. At this standpoint I feel patient is optimized as possible to proceed with surgery. Vitals/I&O/Wt Last Vital Signs Temp 99.2 F 11/29/21 05:05 Pulse 50 L 11/29/21 06:00 Resp 18 11/29/21 05:05 BP 122/56 11/29/21 05:05 Pulse Ox 96 11/29/21 03:49 O2 Del Method 11/29/21 03:49 11/28/21 11/29/21 11/29/21 22:59 06:59 14:59 Intake Total 0 / 50 900 / 950 Output Total 300 / 300 Balance 0 / 50 600 / 650 Weight last 48 hrs Weight 159 lb Physical Exam Narrative: Examination limited secondary to patient hard of hearing. Distal pulses of the right lower extremity palpable. She is able to wiggle her toes she still does not dorsiflex her ankle likely secondary to pain and discomfort. Knee immobilizer in place to right knee. Tenderness to palpation over distal femur fracture site. Urinary Catheter Management: Meyer: Cath Placed During This Visit: yes Reason for Continuing Indwelling Catheter: Required Immobilization for Trauma or Surgery or Anesthesia Urinary Catheter Date of Insertion: 11/28/21 Urinary Catheter Time of Insertion: 10:17 Data : 11/29/21 07:18 11/28/21 08:55 Micro: Microbiology 11/28/21 10:10 Urine Culture - Preliminary Urine,Clean Catch Gram Negative Rods 11/28/21 17:21 Occult Blood (FIT) - Final Stool - Stool Aspirate A&P Assessment and plan (1) Femur fracture, right: Right displaced distal femur fracture -N.p.o. since midnight -Hospitalist team on board and has medically optimized patient for surgical intervention -Hemoglobin 8.1 this morning already received 2 units PRBC -Patient to receive TXA and 4 units on hold for surgery today -Appreciate general surgery's evaluation and recommendations -Nonweightbearing right lower extremity, knee immobilizer on in place -A.m. anticoagulation held -Plan for OR today for right femur open reduction internal fixation with retrograde nail Status: Acute Attestations Medical Necessity Statement*: Patient sustained right distal femur fracture requiring hospitalization and surgical intervention and postoperative therapy and monitoring Coding Level of Care Code Acute Capital Project Engineer for Erika Camacho Diagnoses Femur fracture, right S72.91XA
[2021-11-29 07:48] LABS: INR 1.33 (0.8-1.2)
[2021-11-29 07:54] LABS: Alanine Aminotransferase 12 U/L (0-33); Albumin Level 2.8 g/dL (3.5-5.2); Alkaline Phosphatase 164 U/L (35-105); Anion Gap 16.7 (5-19); Aspartate Amino Transferase 32 U/L (0-32); Blood Urea Nitrogen 26 mg/dL (8-23); Calcium 8.5 mg/dL (8.5-10.5); Carbon Dioxide 19 mmol/L (22-29); Chloride 102 mmol/L (98-107); Globulin 3.2 g/dL (1.3-4.6); Glucose 162 mg/dL (65-115); Magnesium 1.7 mg/dL (1.7-2.3); Osmolality Calculated 286 mOsm/kg (285-295); Phosphorus 2.8 mg/dL (2.5-4.5); Potassium 3.7 mmol/L (3.5-5.1); Sodium 134 mmol/L (136-145); Total Bilirubin 0.7 mg/dL (0.15-1.2)
[2021-11-29 08:51] LABS: Glucose Point of Care 170 mg/dL (70-110)
[2021-11-29] MEDS: ceFAZolin 2,000 MG in sodium chloride 0.9% (plus) 50 ML 100 MG IV (09:00)
--- NOTE | 2021-11-29 09:02 | P.ANESASSM_ITS ---
Pre-Anesthetic Assessment Height/Weight: Height 1.63 m Weight 72.121 kg Temp Pulse Resp BP Pulse Ox O2 Del Method 98.8 F 83 18 124/57 94 11/29/21 08:45 11/29/21 08:45 11/29/21 08:45 11/29/21 08:45 11/29/21 08:45 11/29/21 08:45 Preop Diagnosis: cirrhosis, ascites, hematochezia Operation Date: 11/29/21 09:00 Proposed Procedures p ORIF Femur(Right) - Gilson Towns, DO Familial anesthetic complications: None Was Beta Nathan taken within 24 hours: N/A Was Clonidine taken within 24 hours: N/A Social No alcohol and No tobacco Exam alert, oriented x 3, clear to auscultation bilaterally and regular rate & rhythm [place] Airway Submandibular: within normal limits Cervical ROM: within normal limits Mallampati: Class II Dentition: false CV/HEM Anemia Hepatic Hepatitis (LLOYD) Portal HTN GI Gastroesophageal Reflux Disease GI bleed Metabolic Diabetes Mellitus Anesthetic Plan ASA status: 3E Anesthesia: Regional (specify below) (SAB) Medications/Allergies Home Medications Medication Instructions Recorded Confirmed Last Taken Type ferrous sulfate 325 mg (65 mg 325 mg PO BID@07,06/11/21 11/28/21 11/27/21 History iron) tablet insulin lispro 100 unit/mL See Rx Instructions .Route .COMPLEX 06/11/21 11/28/21 11/27/21 History subcutaneous pen (Humalog KwikPen (U-100) Insulin) melatonin 5 mg tablet 5 mg PO BEDTIME@06/11/21 11/28/21 11/27/21 History mirtazapine 7.5 mg tablet 7.5 mg PO BEDTIME@06/11/21 11/28/21 11/27/21 History polyethylene glycol 3350 17 17 g PO DAILY@06/11/21 11/28/21 11/27/21 History gram/dose oral powder acetaminophen 500 mg tablet 1,000 mg PO Q6H PRN Pain 06/16/21 11/28/21 09/11/21 History magnesium hydroxide 400 mg/5 mL 30 ml PO DAILY PRN Constipation 06/16/21 11/28/21 Unknown History oral suspension (Milk of Magnesia) nitroglycerin 0.4 mg sublingual 0.4 mg sublingual Q5M PRN Chest 06/28/21 11/28/21 Unknown History tablet (Nitrostat) Pain spironolactone 25 mg tablet 50 mg PO DAILY@07/06/21 11/28/21 11/27/21 History ondansetron HCl 8 mg tablet 8 mg PO Q8H PRN Nausea 08/22/21 11/28/21 Unknown History tramadol 50 mg tablet 50 mg PO Q6H PRN Pain 08/22/21 11/28/21 Unknown History magnesium oxide 400 mg (241.3 mg 400 mg PO BID #60 tabs 08/25/21 11/28/21 11/27/21 Rx magnesium) tablet (MagOx) metolazone 2.5 mg tablet 2.5 mg PO DAILY #30 tabs 08/25/21 11/28/21 11/27/21 Rx bumetanide 1 mg tablet 1 mg PO DAILY #60 tabs 09/13/21 11/28/21 11/27/21 Rx insulin glargine 100 unit/mL (3 20 unit SUBCUT DAILY@11/28/21 11/28/21 11/27/21 History mL) subcutaneous pen (Lantus Solostar U-100 Insulin) lactulose 20 gram/30 mL oral 10 g PO DAILY PRN Constipation 11/28/21 11/28/21 Unknown History solution pantoprazole 40 mg tablet,delayed 40 mg PO BID 11/28/21 11/28/21 11/27/21 History release rifaximin 550 mg tablet (Xifaxan) 550 mg PO BID 11/28/21 11/28/21 11/27/21 History sucralfate 1 gram tablet 1 g PO QID 11/28/21 11/28/21 11/27/21 History Allergies Allergy/AdvReac Type Severity Reaction Status Date / Time aspirin Allergy Intermediate rash Verified 11/28/21 18:00 atropine Allergy Intermediate unknown Verified 11/28/21 18:00 ciprofloxacin Allergy ALGY-Rash Verified 11/28/21 18:00 hydrocodone Allergy Unknown Verified 11/28/21 18:00 iodine Allergy ALGY-Hives Verified 11/28/21 18:00 meperidine [From Demerol] Allergy ADR-Nausea Verified 11/28/21 18:00 Sulfa (Sulfonamide Allergy ALGY-Rash Verified 11/28/21 18:00 Antibiotics) Current Medications Generic Name Dose Route Start Last Admin Trade Name Myra PRN Reason Stop Dose Admin Acetaminophen 650 mg 11/28/21 12:51 11/29/21 01:26 Acetaminophen 325 Mg Tablet PO 650 mg Q6H PRN Administration Mild/Mod Pain Or Temp >/= 101 Ferrous Sulfate 325 mg 11/28/21 17:00 11/29/21 08:23 Ferrous Sulfate Ec 325 Mg Tablet PO Not Given BID@07,17 [facility] Ceftriaxone Sodium 1,000 mg/ 50 mls @ 100 mls/hr 11/28/21 13:00 11/28/21 14:11 Sodium Chloride IV Infused Q24H [facility] Infusion Protocol Insulin Glargine 10 unit 11/29/21 08:00 11/29/21 08:22 Insulin Glargine 100 Units/1 Ml SUBCUT Not Given DAILY@08 [facility] Insulin Human Lispro 0 unit 11/28/21 18:00 11/29/21 08:22 Insulin Lispro 100 Unit/1 Ml SUBCUT Not Given WM&BEDTIME [facility] Protocol Mirtazapine 7.5 mg 11/28/21 19:00 11/28/21 18:12 Mirtazapine 15 Mg Tablet PO 7.5 mg BEDTIME@19 [facility] Administration Ondansetron HCl 4 mg 11/28/21 12:51 11/28/21 16:36 Ondansetron 2 Mg/Ml Sdv 2 Ml IVP 4 mg Q8H PRN Administration vomiting, or N/V if npo Pantoprazole Sodium 40 mg 11/28/21 13:00 11/29/21 01:27 Pantoprazole 40 Mg Sdv IVP 40 mg Q12H [facility] Administration Rifaximin 550 mg 11/28/21 18:00 11/28/21 18:12 Rifaximin 550 Mg Tablet PO 550 mg BID [facility] Administration Protocol Sucralfate 1 gm 11/28/21 13:00 11/28/21 20:15 Sucralfate 1 Gm Tablet PO 1 gm QID RAMYA Administration Tramadol HCl 50 mg 11/28/21 12:56 11/28/21 13:10 Tramadol 50 Mg Tablet PO 50 mg Q6H PRN Administration Pain PFSH Anesthesia Medical History Abdominal ascites Abdominal pain Abnormal colonoscopy Anemia AVM (arteriovenous malformation) AVM (arteriovenous malformation) of colon with hemorrhage C. difficile colitis Cerebral aneurysm Diverticulosis Fluid overload GI bleed Esophageal variceal banding on 2 occasions in the past, EGD colonoscopy October 2015 upper endoscopy showed esophageal varices with no bleeding or stigmata of bleeding. Colonoscopy showed multiple AVMs in the ascending and proximal transverse colon which were cauterized. Extensive diverticulosis with internal and external hemorrhoids were noted. 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 (LLOYD) LLOYD (nonalcoholic steatohepatitis) Portal hypertension EGD esophageal banding on 03/25/16 she has been transfused multiple times Type 2 diabetes mellitus Surgical History S/P endoscopy Family History Other Family history non-contributory Social History Smoking and tobacco status: never smoked Alcohol intake: never Housing: House Data Anesthesia : 11/29/21 07:18 11/29/21 07:18 Short CBC 11/28/21 11/28/21 11/29/21 Range/Units 09:20 13:06 07:18 WBC 4.5 2.8 L (4.0-10.0) 10^3/uL Hgb 5.8 L* 5.6 L* 8.1 L D (11.5-15.3) g/dL Hct 19.4 L* 19.6 L* 26.2 L D (37.0-47.0) % MCV 83.3 83.4 (81-99) fl Plt Count 196 165 (130-400) 10^3/cmm Neut % (Auto) 83.5 69.2 % Neut # (Auto) 3.78 1.93 (1.8-7.7) 10^3/uL BMP 11/28/21 11/29/21 08:55 07:18 Sodium 132 L 134 L Potassium 3.9 3.7 Chloride 99 102 Carbon Dioxide 20 L 19 L BUN 35 H 26 H Creatinine 1.0 H 0.7 Glucose 156 H 162 H Calcium 9.1 8.5 Cardiac Enzymes 11/28/21 Range/Units 09:20 NT-Pro-B Natriuret Pep 1117 H (0-450) pg/mL Liver Function 11/28/21 11/29/21 Range/Units 08:55 07:18 Total Bilirubin 0.5 0.7 (0.15-1.2) mg/dL AST 42 H 32 (0-32) U/L ALT 16 12 (0-33) U/L Alkaline Phosphatase 197 H 164 H (35-105) U/L Albumin 3.2 L 2.8 L (3.5-5.2) g/dL Urine 11/28/21 Range/Units 10:10 Urine Color Yellow (Yellow) Urine Appearance Hazy A (CLEAR) Urine pH 5 (5-7) Ur Specific [place] 1.015 (1.005-1.030) Urine Protein Neg (Negative) Urine Glucose (UA) Norm (Normal) Urine Ketones Negative (Negative) Urine Nitrate Negative (Negative) Urine Bilirubin Neg (Negative) Ur Leukocyte Esterase Negative (Negative) Urine RBC None (0-2) /hpf Urine WBC 5-10 H (0-5) /hpf Blood Bank 11/28/21 10:24 Blood Type O Positive Rho(D) Type Positive Antibody Screen Negative Coags 11/29/21 07:18 PT 16.80 H INR 1.33 H Microbiology 11/28/21 10:10 Urine Culture - Preliminary Urine,Clean Catch Gram Negative Rods 11/28/21 17:21 Occult Blood (FIT) - Final Stool - Stool Aspirate Cardiac Studies: Echocardiogram 02/28/21
--- NOTE | 2021-11-29 09:09 | W.PM.OPSUD ---
Surgery/Procedure H&P Update DATE OF PROCEDURE: November 29, 2021 DATE H&P PERFORMED: 11/28/21 CHANGES TO PREVIOUS DOCUMENTATION: None Was able to speak with son this morning about patient's work-up and optimization. At this standpoint feel patient has is optimized that she will be prior to surgical intervention and cleared by general surgery as well as the hospitalist team. Her hemoglobins above 8 and IVC expressed with son risks of surgery as far as the benefits the complications and the alternatives. Understands the risks include make it better, make it worse, blood clot, heart attack, stroke, on the table, excessive blood loss, need for transfusions, malunion, nonunion, failed hardware, infection and with these understandings he agrees that we proceed with surgery. This was all discussed with patient as well and she agrees to proceed with surgery as well although given her difficulty with hearing wanted to verify with her son as well. We will proceed with surgery with plan for right distal femur retrograde nail which after our nail fixation will assess stability if patient's stable doing well and I need more fixation may augment with a lateral plate as well. Son understands and agrees to proceed with current plan. All questions answered. PREOP DIAGNOSIS: Right displaced distal femur fracture PRIMARY INDICATION FOR PROCEDURE: Right distal femur fracture PLANNED PROCEDURE: Operation Date: 11/29/21 09:00 Proposed Procedures p ORIF Femur(Right) - Gilson Morejon DO
--- NOTE | 2021-11-29 11:41 | XRR_ITS ---
PROCEDURE INFORMATION: Exam: XR Right Femur Exam date and time: 11/29/2021 11:44 AM Age: 76 years old Clinical indication: Device placement; Other: Orif right femur; Prior surgery; Surgery date: Post-operative (0-2 days); Additional info: Postop retrograde femur nail TECHNIQUE: Imaging protocol: Radiologic exam of the Right femur. Views: 2 views. COMPARISON: CR (LOW EXM, ) 11/28/2021 9:08 AM FINDINGS: Bones/joints: Multiple metal plates and screws transfix a right acetabular fracture. An intramedullary teagan and screws extends across the comminuted is fracture of the distal femur. The overall position appears satisfactory. Soft tissues: Unremarkable. XR/XR femur RT min 2V* [id number] IMPRESSION: Intramedullary teagan transfixes a distal femur fracture in satisfactory position.
[2021-11-29 11:50] LABS: Glucose Point of Care 170 mg/dL (70-110)
--- NOTE | 2021-11-29 11:53 | P.OP_ITS ---
Brief Operative Note Date of procedure: 11/29/21 Pre-op diagnosis: Right distal femur fracture Post-op diagnosis: same Procedure Done: Right distal femur open reduction internal fixation with retrograde supracondylar nail Estimated blood loss (mL): 125 Complications: None Post-op Plan: Patient taken to PACU in stable condition. Dressings are in place clean dry and intact. Patient be partial weightbearing right lower extremity 30 to 50%. Range of motion as tolerated right knee. PT/OT. Postoperative antibiotics. Patient to receive 1 dose of TXA postoperative on the floor. Will continue with mechanical prophylaxis. Coding Level of Care Code Acute Supervisor Dials for Erika Camacho
--- NOTE | 2021-11-29 12:00 | PM.PACU ---
PACU note Narrative: Patient seen and examined in PACU. Patient recovering well without any issues. Patient had spinal anesthesia which still in effect and patient unable to to assess motor and sensory secondary to spinal anesthesia. Patient's dressings are clean dry and intact to the right lower extremity. Clinically patient's right lower extremity is appropriate length alignment and rotation. Distal pulses are palpable. Right lower extremity warm well perfused. Compartments are soft and compressible throughout the right thigh. Exam: awake (Patient awake and recovering. See narrative for exam details.) Disposition: back to floor
[2021-11-29] MEDS: fentaNYL 50 mcg/mL INJ 2mL IVP (12:03)
[2021-11-29 12:21] LABS: Hematocrit 24.8 % (37.0-47.0); Hemoglobin 7.4 g/dL (11.5-15.3)
[2021-11-29] MEDS: oxyCODONE 5 mg IR Tab/Cap PO ×2 (13:16→16:42)
[2021-11-29] MEDS: acetaminophen 500 mg Tablet 1000 MG PO ×2 (13:18→22:11)
[2021-11-29] MEDS: sucralfate 1 gm Tablet PO ×4 (13:18→21:38)
[2021-11-29] MEDS: insulin lispro 100 unit/1 mL SUBCUT ×2 (13:19→22:12)
[2021-11-29] MEDS: sennosides-docusate Tablet 1 TAB PO ×2 (13:19→13:25)
[2021-11-29] MEDS: HYDROmorphone 1 mg/mL INJ 1 mL 0.4 MG IVP (13:22)
[2021-11-29] MEDS: chlorhexidine gluconate 0.12% Btl 473 mL 30 ML MUCOUS MEM ×3 (13:24→21:39)
[2021-11-29] MEDS: cefTRIAXone 1,000 MG in sodium chloride 0.9% (plus) 50 ML 100 MG IV (13:25)
--- NOTE | 2021-11-29 14:31 | PC.NURSE ---
physician notified of post surgical hgb of 7.4. no new orders given at this time.
--- NOTE | 2021-11-29 14:55 | P.PN_ITS ---
Subjective Subjective: Plan for OR intervention today. Hemoglobin at 8.1 this morning. T-max 100.5 overnight. Medications: Reviewed: Yes Vitals/I&O/Wt Last Vital Signs Temp 98.2 F 11/29/21 12:19 Pulse 83 11/29/21 12:19 Resp 18 11/29/21 13:22 BP 126/51 11/29/21 12:19 Pulse Ox 93 11/29/21 13:22 O2 Del Method 11/29/21 12:19 O2 Flow Rate 6 11/29/21 11:39 11/28/21 11/29/21 11/29/21 22:59 06:59 14:59 Intake Total 0 / 50 900 / 950 410.0 / 410.0 Output Total 300 / 300 625 / 625 Balance 0 / 50 600 / 650 -215.0 / -215.0 Weight last 48 hrs Weight 72.121 kg Physical Exam Narrative: General: No acute distress, AO x3 HEENT: PERRLA, pupils bilaterally equal and reactive, pallors not present Chest: Normal vesicular breath sounds, no added sounds, equal good air entry bilaterally CVS: S1-S2 regular, no murmurs, no tachycardia, no gallops, no rubs Abdomen: Soft, nontender, no organomegaly, bowel sounds present Urinary Catheter Management: Meyer: Cath Placed During This Visit: yes Reason for Continuing Indwelling Catheter: Required Immobilization for Trauma or Surgery or Anesthesia Urinary Catheter Date of Insertion: 11/28/21 Urinary Catheter Time of Insertion: 10:17 Data : 11/29/21 12:14 11/29/21 07:18 Micro: Microbiology 11/28/21 10:10 Urine Culture - Preliminary Urine,Clean Catch Gram Negative Rods 11/28/21 17:21 Occult Blood (FIT) - Final Stool - Stool Aspirate A&P Assessment and plan (1) Femur fracture, right: Status: Acute (2) Anemia: Status: Acute (3) Iron deficiency anemia secondary to blood loss (chronic): Status: Acute (4) Portal hypertension: Status: Acute (5) Liver cirrhosis secondary to nonalcoholic steatohepatitis (LLOYD): Status: Acute (6) AVM (arteriovenous malformation) of colon with hemorrhage: Status: Acute Plan #Acute right distal femoral supracondylar fracture #Acute blood loss anemia, hemoglobin 5.8, improved to 8.1 this am #History of recurrent GI bleed, esophageal varices, AV malformations, C. difficile colitis, history of colopathy #History of coronary artery disease, diabetes, insulin-dependent #History of cerebral aneurysm status post clipping #Legally deaf, #Liver cirrhosis secondary to Lloyd, recurrent ascites ? Transfused 2 units packed RBC. Hb at 8.1 this am. Continue to trend H&H every 8 hours ? Transfusion goal Hb 8 ? Check EKG ? Last echo February 2021: LVEF 55 to 60%, normal diastolic function, mild mitral regurgitation, mild pulmonic regurgitation, mild to moderate tricuspid re gurg. -Continue Bumex 1 mg daily, spironolactone 50 daily ? Continue Lantus 20 units subcu daily. ? Continue mirtazapine, Protonix 40 IV twice daily ? Rifaximin 550 p.o. twice daily ? Continue Carafate ? Revised cardiac risk index: Patient is a class IV risk 15% 30-day risk of LA or cardiac arrest. - FOBT positive. - Patient is high risk for surgery - Appreciate gen/surg input re: possible GI bleed. No clinical evidence of GI bleed at this time. Follow up as outpatient, possible capsule endoscopy. # FEVER T-max 100.4 overnight. Check chest x-ray, COVID antigen UA upon admission with 5-10 WBC, otherwise unremarkable. However urine culture showing gram-negative rods. Check blood culture. Currently on empiric antibiotic treatment with ceftriaxone 1 g every 24--> change to cefepime given multiple past urine culture showing Pseudomonas aeruginosa. Cefepime will additionally suffice as perioperative prophylaxis. Full code DVT prophylaxis: SCDs Attestations Medical Necessity Statement*: planned for surgical intervention today Coding Level of Care Code Acute Simulation Software Engineer for g Fwd Diagnoses Femur fracture, right S72.91XA Anemia D64.9 Iron deficiency anemia secondary to blood loss (chronic) D50.0 Portal hypertension K76.6 Liver cirrhosis secondary to nonalcoholic steatohepatitis (LLOYD) K75.81; K74.60 AVM (arteriovenous malformation) of colon with hemorrhage K55.21
[2021-11-29] MEDS: sodium chloride 0.9% (100 ml) 100 ML 10 ML (16:21)
[2021-11-29] MEDS: cefepime 2,000 mg SDV 2000 MG (16:21)
[2021-11-29] MEDS: cefepime 2,000 MG in sodium chloride 0.9% (plus) 50 ML 100 MG IV (16:21)
--- NOTE | 2021-11-29 16:24 | ANE.PACU2 ---
Inpatient post-anesthesia follow up: Airway intact: Yes Vital signs: Temperature 98.9 F Pulse Rate 86 Respiratory Rate 18 Blood Pressure 126/51 Pulse Oximetry 92 Oxygen Delivery Me thod Room Air Oxygen Flow Rate 6 Fraction of Inspir ed Oxygen Hydration adequate: Yes Nausea and vomiting: No Pain level: 2 Mental status: Baseline
[2021-11-29] MEDS: ferrous sulfate EC 325 mg Tablet PO (16:43)
--- NOTE | 2021-11-29 16:48 | P.OP_ITS ---
Operative Report Date of procedure: November 29, 2021 Pre-op diagnosis: Preop Diagnosis Right displaced distal femur fracture Post-op diagnosis: Same Post-op findings: See procedure note for details Procedure done: Right distal femur open reduction internal fixation with retrograde nail Implants: Dante SCN nail 11 mm x 360 mm Distal screws (5.0 condylar bolts 80 mm and 85 mm, 5.0 oblique distal locking screws 80 mm, 75 mm) Proximal locking screws 5.0 mm 32.5 mm x 2 Specimens removed/disposition: None Surgeon: Gilson Morejon DO Estimated blood loss: 125 cc None IV fluids: See anesthesia record Complications: None Findings: See operative report narrative Brief History: Patient presents is a pleasant 76-year-old female who sustained a ground level mechanical fall directly onto her right knee and sustained a significant pain and deformity. Brought to emergency department found to have displaced and impacted right supracondylar distal femur fracture. Patient on initial date of injury and presentation to the emergency department was found to have significantly low hemoglobin of 5.6. She does suffer from chronic anemia and likely secondary acute secondary to fracture. She has had an exhaustive GI wo rk-up in the past per patient's son and she has had to require multiple transfusions in the past. She has developed antibodies and blood was have to be shipped from an outside facility. Given her low hemoglobin she was admitted by the hospitalist team medically optimized and the following day repeat hemoglobin after 2 units PRBC as well as appropriate work-up by her general surgery team was deemed appropriate and is medically optimized as possible for surgical intervention. On 11/29/2021 this morning she was evaluated. She is having difficulty hearing due to issues with her cochlear implant as a result I did discuss her case with her son and ultimately at this standpoint from our emergency department discussion as well as this morning agree to proceed with surgical intervention. Given CT scan I do feel as though will be able to fix fracture with a retrograde nail which will hopefully allow earlier mobilization and weightbearing. I did express given her poor bone quality I may have to augment fixation with a lateral plate if fracture persist to be unstable with retrograde nail fixation. Patient's son understands and agrees to proceed with current plan. Understands the risks which include but are not limited to make a better make it worse, blood clot, heart attack, stroke, on the table, excessive blood loss, further transfusions, failure of hardware and repeat surgery, neck malunion, nonunion, infection, and understanding these risks he was agreeable to proceed with surgery for his mother and yesterday while her cochlear implant was working in the emergency department she understood and requested we proceed with surgical intervention. Procedure: Patient was seen and evaluated in the preoperative holding area the correct right lower extremity was then marked. The consent was reviewed and again was confirmed with son over the phone. Patient received appropriate preoperative antibiotics was evaluated by anesthesia team. Patient was then taken to the OR and underwent spinal anesthesia per the anesthesia department. Once appropriately anesthetized she was then placed into the OR bed which was a flattop Bishop in supine position. All bony prominences were well-padded and patient was appropriately secured to the bed. Patient's right lower extremity was then prepped and draped in standard orthopedic fashion. Final timeout performed. Initially we begun surgery with large fluoroscopic C arm to evaluate her fracture pattern as well as see our attempts at closed reduction. AP lateral were performed showing significant impaction as well as valgus and significant flexion of the distal fragment. Multiple attempts at closed reduction were made and were unsuccessful. Next I made a small incision and split the quadriceps tendon and placed a Morillo within the impacted proximal shaft piece and utilize this to lever this out to more appropriate length as well as to align the anterior cortex. While doing this I then made a small incision laterally parallel with the IT band used an additional Morillo which bluntly slid during staying care directly onto bone and slid this over the posterior cortex that was excessively flexed. I then directed a posterior to anterior force to help unflexed the distal segment and at this standpoint was satisfied with my reduction. While reduction was held I then advanced 2 K wires 1 from medial distal and 1 from lateral distal and extended proximally while holding reduction which were then advanced in an X configuration to hold our reduction. This point we are satisfied in the Keo were removed and our reduction held. Next we then proceeded with starting our guidewire placement. Longitudinal incision was made over the anterior aspect of knee centering over the patellar tendon. Sharp scalpel excision through skin subcutaneous tissue and peritenon. Next a small stab incision was split midline of the patellar tendon. Next the guidewire was then placed centered in the intercondylar notch on an AP of the knee on the lateral just anterior to Blumenstock's line. Once this was in appropriate position this was then advanced to being center center in the canal. Once we liked our position we plan for opening reamer. Of note patient did have noticeable patellar Baha which was attempting to push posteriorly our starting point. I utilized the soft tissue protector for reamer to help elevate the patella to keep us more in line with our initial starting point. We utilized our opening reamer and then the ball-tipped guidewire was then advanced to appropriate position just above the lesser this point we then took our measurement which was 360 mm. Next we sequentially reamed up to a 12.5 which had excellent chatter. Of note our reduction was well-maintained during our reaming. Next we then opened a S[employer] SCN nail 11 mm x 360 mm this was loaded appropriately and then gently impacted into position. While impacting it was evident that we lost our reduction in her K wire fixation. As a result I then backed out the nail as I had excessive extension at her fracture site. As result I reposition the Keo in appropriate position to obtain my initial reduction which I was satisfied with in both AP and lateral imaging. Once I obtain this it was then clear on my initial passing of the nail that my main deformity that needed correcting was my extension at the fracture site. As a result I then utilized the same K wires and advanced these from lateral to medial. Of note I wanted to avoid allowing the nail to fall posterior my star ting point as result in the distal fragment this was placed posteriorly to encourage the nail anteriorly. Next on the proximal shaft fragment to avoid the nail writing the anterior cortex I then placed a polar blocking K wire from lateral to medial on the anterior third of the cortex to keep the nail from creating extension at the fracture site. Once these were in appropriate position I then advanced the nail with gentle taps and was satisfied with my reduction on the lateral x-ray as well as the AP x-ray. Nail was confirmed to be at appropriate depth and position in multiple orthogonal images both proximally and distally. There was still slight residual valgus however given patient's overall length and alignment I felt as though this would be acceptable for her and did not want to cause any more trauma and the distal bone stock were I would lose all fixation. As a result I elected proceed and ultimately was satisfied with this reduction. I proceeded with locking the nail distally while the reduction was held. I placed the condylar bolts in the 1 and 4 position on the SCN nail these were appropriately drilled measured and the SCN bolts were appropriately placed and secured with solid fixation. Of note the proximal locking bolt was right near my fracture site however with the washer this appeared to bridge and help compress my valgus deformity and added to my fixation, I felt in this scenario more fixation I could get the better. Next I then placed my orthogonal interlocking screws which were then drilled measured and appropriate length 5.0 mm locking screws were then placed through the distal fractures fragment and nail. This completed our distal fixation. Next I then obtained perfect circles of the nail proximally. Utilizing perfect [place] tribe technique I then made a small single incision proximally to incorporate placing 2 proximal locking screws. Sharp scalpel excision through skin. Then utilized blunt digital dissection the subcutaneous tissue split the fibers of the quadricep muscle and directly down to bone. Next introduced the drill bit and under perfect [place] tribe technique with fluoroscopic imaging placed to proximal interlocking screws which pulse measured 32.5 mm. Screws were then placed and had excellent fixation. This completed a retrograde nail construct. I then assessed the fracture site and took patient's right knee through range of motion. The fracture site was stable and had no evidence of motion and as a result I felt no need to further proceed with augmented lateral fixation. Patient's incision sites were then thoroughly irrigated. 0 Vicryl 2-0 Vicryl and purnima were used to close the incisions. Silverlon dressings were used to cover the incisions. Patient was then awakened from anesthesia and taken to PACU in stable condition. Disposition: Patient taken to PACU in stable condition. Patient underwent spinal anesthesia and still recovering. Patient will return to the floor. Patient received appropriate postoperative antibiotics. DVT prophylaxis with mechanical compression and will coordinate with hospitalist once deemed appropriate given her chronic anemia. Pain control. Will outpatient partial weightbearing 30 to 50% to the right lower extremity in hopes to help with mobility. PT/OT. Will see patient in my office in 2 weeks postoperatively.
[2021-11-29 17:17] LABS: Glucose Point of Care 120 mg/dL (70-110)
[2021-11-29] MEDS: calcium carb-vit d 600mg/400unit 1 Tablet 1 EACH PO (17:32)
[2021-11-29] MEDS: mupirocin oint 22 gm 1 APPLIC NASAL (17:33)
[2021-11-29] MEDS: sennosides-docusate Tablet 2 TAB PO (17:34)
[2021-11-29 18:45] LABS: SARS Covid-2 Antigen Negative (Negative)
[2021-11-29] MEDS: mirtazapine 15 mg Tablet 7.5 MG PO (18:51)
[2021-11-29 21:33] LABS: Hematocrit 26.8 % (37.0-47.0); Hemoglobin 8.2 g/dL (11.5-15.3)
[2021-11-29 22:03] LABS: Glucose Point of Care 185 mg/dL (70-110)
[2021-11-30] VITALS (13 sets, daily range): BP systolic 103–150; BP diastolic 58–66; PULSE 60–96; RESP 14–20; TEMP 36.8–37.8; O2SAT 93–98
[2021-11-30] MEDS: pantoprazole 40 mg SDV IVP ×2 (01:32→13:37)
[2021-11-30] MEDS: cefepime 2,000 MG in sodium chloride 0.9% (plus) 50 ML 100 MG IV ×2 (01:32→08:42)
[2021-11-30] MEDS: oxyCODONE 5 mg IR Tab/Cap PO ×3 (04:12→16:59)
[2021-11-30 04:26] LABS: Basophils % 0.8 %; Eosinophils # 0.1 10^3/uL (0.0-0.8); Eosinophils % 1.8 %; Hematocrit 26.1 % (37.0-47.0); Hemoglobin 8.1 g/dL (11.5-15.3); Lymphocytes # 0.5 10^3/uL (0.8-4.8); Lymphocytes % 13.2 %; Mean Corpuscular Hemoglobin 26.1 pg (28.0-34.0); Mean Corpuscular Volume 84.2 fl (81-99); Mean Platelet Volume 8.6 fL (7.4-10.4); Monocytes # 0.6 10^3/uL (0.2-0.9); Monocytes % 15.5 %; Neutrophils # 2.64 10^3/uL (1.8-7.7); Neutrophils % 68.2 %; Nucleated Red Blood Cells % 0 %; Platelet Count 152 10^3/cmm (130-400); Red Cell Distribution Width 15.9 % (12.1-15.1); White Blood Count 3.9 10^3/uL (4.0-10.0)
[2021-11-30 04:47] LABS: Anion Gap 11.7 (5-19); Blood Urea Nitrogen 20 mg/dL (8-23); Calcium 8.3 mg/dL (8.5-10.5); Carbon Dioxide 23 mmol/L (22-29); Chloride 100 mmol/L (98-107); Glucose 103 mg/dL (65-115); Osmolality Calculated 275 mOsm/kg (285-295); Potassium 3.7 mmol/L (3.5-5.1); Sodium 131 mmol/L (136-145)
[2021-11-30] MEDS: acetaminophen 500 mg Tablet 1000 MG PO ×3 (06:08→23:22)
[2021-11-30 06:25] LABS: Glucose Point of Care 132 mg/dL (70-110)
--- NOTE | 2021-11-30 07:21 | P.PN_ITS ---
Subjective Subjective: Patient seen and examined this morning and doing well. Right lower extremity resting comfortably on pillows. Dressings are clean dry and intact. Patient states her pain feels improved. No other complaints at this time Vitals/I&O/Wt Last Vital Signs Temp 99.9 F H 11/30/21 04:00 Pulse 60 11/30/21 04:52 Resp 18 11/30/21 04:12 BP 115/59 11/30/21 04:00 Pulse Ox 93 11/30/21 04:00 O2 Del Method 11/29/21 19:45 O2 Flow Rate 6 11/29/21 20:00 11/29/21 11/30/21 11/30/21 22:59 06:59 14:59 Intake Total 1000 / 1410.0 170 / 1580.0 Output Total 1025 / 1650 Balance 1000 / 785.0 -855 / -70.0 Weight last 48 hrs Weight 159 lb Physical Exam Narrative: Examination: Patient hard of hearing but able to follow commands Patient comfortable in bed, right lower extremity dressings are on in place and are clean dry and intact with no saturation. Her right thigh compartments are soft and compressible normal postoperative ecchymosis and swelling. Patient nods her sensation intact light touch of the right lower extremity, she is able to wiggle her toes she plantar flexes and subtle dorsiflexion firing noted this morning improved from previous examination. Distal pulses palpable. Lower extremities warm well perfused. Urinary Catheter Management: Meyer: Cath Placed During This Visit: yes Reason for Continuing Indwelling Catheter: Perioperative Use in Selected Surgeries Urinary Catheter Date of Insertion: 11/28/21 Urinary Catheter Time of Insertion: 10:17 Data : 11/30/21 04:06 11/30/21 04:06 Micro: Microbiology 11/29/21 20:50 Blood Culture - Preliminary Blood SPECIMEN COLLECTED 11/29/21 20:55 Blood Culture - Preliminary Blood SPECIMEN COLLECTED 11/28/21 10:10 Urine Culture - Preliminary Urine,Clean Catch Gram Negative Rods A&P Assessment and plan (1) Closed fracture of right distal femur: Status: Acute Plan - Partial weightbearing 30 to 50% right lower extremity -PT/OT -Postoperative antibiotics -Hemoglobin stable this morning at 8.1 -Hospitalist on board is primary and appreciate their medical management -Dressings may stay on in place unless becomes saturated -Ice as needed -Encourage range of motion right knee -DVT prophylaxis currently utilizing mechanical as patient's had bleeding issues and low hemoglobin requiring transfusions. We will coordinate with hospitalist on plan moving forward -Pain control Attestations Medical Necessity Statement*: Patient sustained right distal femur fracture as well as low hemoglobin requiring transfusions to optimize preoperatively's for surgery. She is required surgical intervention and will require postoperative monitoring. Coding Level of Care Code Acute Seismometer Operator for Erika Camacho Diagnoses Closed fracture of right distal femur S72.401A
[2021-11-30] MEDS: insulin glargine 100 units/1 mL 10 UNIT SUBCUT (08:41)
[2021-11-30] MEDS: multivitamin therapeutic Tablet 1 TAB PO (08:42)
[2021-11-30] MEDS: cholecalciferol (vitamin D3) 1,000 unit Tablet 1000 UNIT PO (08:42)
[2021-11-30] MEDS: calcium carb-vit d 600mg/400unit 1 Tablet 1 EACH PO ×2 (08:43→18:15)
[2021-11-30] MEDS: sennosides-docusate Tablet 2 TAB PO ×2 (08:43→18:15)
[2021-11-30] MEDS: sucralfate 1 gm Tablet PO ×4 (08:44→21:14)
[2021-11-30] MEDS: ferrous sulfate EC 325 mg Tablet PO ×2 (08:44→18:15)
[2021-11-30] MEDS: chlorhexidine gluconate 0.12% Btl 473 mL 30 ML MUCOUS MEM ×2 (09:37→21:21)
[2021-11-30] MEDS: mupirocin oint 22 gm 1 APPLIC NASAL (09:38)
--- NOTE | 2021-11-30 10:48 | PC.OT ---
OT eval attempted this date. Pt refused OT at this time stating pain is 8/10. Per RN, pt had pain medications approximately 30-40 minutes prior to OT eval attempt. Will attempt OT eval tomorrow.
[2021-11-30 12:13] LABS: Glucose Point of Care 324 mg/dL (70-110)
[2021-11-30] MEDS: insulin lispro 100 unit/1 mL SUBCUT ×2 (12:28→23:23)
[2021-11-30 12:51] LABS: Hematocrit 26.6 % (37.0-47.0); Hemoglobin 8.1 g/dL (11.5-15.3)
--- NOTE | 2021-11-30 16:26 | PM.PN ---
Subjective Subjective: Hemoglobin stable at 8.1 today. No acute complaints. Currently comfortably lying in bed. Pain is controlled. Medications: Reviewed: Yes Vitals/I&O/Wt Last Vital Signs Temp 99.5 F 11/30/21 15:47 Pulse 81 11/30/21 15:47 Resp 16 11/30/21 15:47 BP 122/66 11/30/21 15:47 Pulse Ox 97 11/30/21 15:47 O2 Del Method 11/30/21 15:47 O2 Flow Rate 6 11/29/21 20:00 11/30/21 11/30/21 11/30/21 06:59 14:59 22:59 Intake Total 170 / 1580.0 870 / 870 Output Total 1025 / 1650 400 / 400 Balance -855 / -70.0 470 / 470 Physical Exam Narrative: General: No acute distress, AO x3 HEENT: PERRLA, pupils bilaterally equal and reactive, pallors not present Chest: Normal vesicular breath sounds, no added sounds, equal good air entry bilaterally CVS: S1-S2 regular, no murmurs, no tachycardia, no gallops, no rubs Abdomen: Soft, nontender, no organomegaly, bowel sounds present Urinary Catheter Management: Meyer: Cath Placed During This Visit: yes, but has since been removed by the nurse Reason for Continuing Indwelling Catheter: Perioperative Use in Selected Surgeries Urinary Catheter Date of Insertion: 11/28/21 Urinary Catheter Time of Insertion: 10:17 Date Urinary Catheter Removed: 11/30/21 Time Urinary Catheter Discontinued: 09:45 Data : 11/30/21 12:46 11/30/21 04:06 Micro: Microbiology 11/28/21 10:10 Urine Culture - Final Urine,Clean Catch Escherichia coli 11/29/21 20:50 Blood Culture - Preliminary Blood SPECIMEN COLLECTED 11/29/21 20:55 Blood Culture - Preliminary Blood SPECIMEN COLLECTED A&P Assessment and plan (1) Femur fracture, right: Status: Acute (2) Anemia: Status: Acute (3) Iron deficiency anemia secondary to blood loss (chronic): Status: Acute (4) Portal hypertension: Status: Acute (5) Liver cirrhosis secondary to nonalcoholic steatohepatitis (LLOYD): Status: Acute (6) AVM (arteriovenous malformation) of colon with hemorrhage: Status: Acute Plan #Acute right distal femoral supracondylar fracture #Acute blood loss anemia, hemoglobin 5.8, improved to 8.1 this am #History of recurrent GI bleed, esophageal varices, AV malformations, C. difficile colitis, history of colopathy #History of coronary artery disease, diabetes, insulin-dependent #History of cerebral aneurysm status post clipping #Legally deaf, #Liver cirrhosis secondary to Lloyd, recurrent ascites ? Transfused 3 units packed RBC during admission, hemoglobin is currently stable ? Transfusion goal Hb 8 ? Last echo February 2021: LVEF 55 to 60%, normal diastolic function, mild mitral regurgitation, mild pulmonic regurgitation, mild to moderate tricuspid regurg. -Continue Bumex 1 mg daily, spironolactone 50 daily, currently well compensated, euvolemic. ? Continue Lantus 20 units subcu daily. ? Continue mirtazapine, Protonix 40 IV twice daily ? Rifaximin 550 p.o. twice daily ? Continue Carafate - Appreciate gen/surg input re: possible GI bleed. No clinical evidence of GI bleed at this time. Follow up as outpatient, possible capsule endoscopy. # FEVER T-max 100.5 overnight. Check chest x-ray, COVID antigen negative UA upon admission with 5-10 WBC, otherwise unremarkable. However urine culture showing gram-negative rods, now identified as E.coli. Change abx coverage to ceftriaxone in keeping with susceptibilites. pending blood culture. fever may be related to post op state Full code DVT prophylaxis: start heparin 5000 q12h s/c Dispo: discharge to SNF Attestations Medical Necessity Statement*: awaiting disposition planning, fever evaluation Coding Level of Care Code Acute Youth Care Specialist for [facility] Fwd Diagnoses Femur fracture, right S72.91XA Anemia D64.9 Iron deficiency anemia secondary to blood loss (chronic) D50.0 Portal hypertension K76.6 Liver cirrhosis secondary to nonalcoholic steatohepatitis (LLOYD) K75.81; K74.60 AVM (arteriovenous malformation) of colon with hemorrhage K55.21
--- NOTE | 2021-11-30 16:28 | XR_ITS ---
WS: [id number] Portable AP upright chest, 11/30/2021 Clinical Data: fever, evaluate for pneumonia Comparison: Portable chest, 09/11/2021. Findings: No nodules, masses or effusions are seen. The heart is normal. The pulmonary vascularity is not increased. No pneumonia or pneumothorax is seen. The aortic arch and descending thoracic aorta s how calcification and tortuosity. Monitor leads are on the chest wall. There is an old fracture of th e proximal right humerus. XR/XR chest 1V portable [id number] Impression: Atherosclerosis.
[2021-11-30] MEDS: heparin 5,000 unit/mL INJ 1 mL 5000 UNIT SUBCUT (18:14)
[2021-11-30] MEDS: mirtazapine 15 mg Tablet 7.5 MG PO (18:16)
[2021-11-30 20:55] LABS: Glucose Point of Care 248 mg/dL (70-110)
[2021-11-30 21:12] LABS: Hematocrit 28.2 % (37.0-47.0); Hemoglobin 8.9 g/dL (11.5-15.3)
[2021-11-30] MEDS: cefTRIAXone 1,000 MG in sodium chloride 0.9% (plus) 50 ML 100 MG IV (21:21)
[2021-12-01] VITALS (11 sets, daily range): BP systolic 110–128; BP diastolic 56–69; PULSE 50–87; RESP 15–18; TEMP 36.7–38.1; O2SAT 93–98
[2021-12-01 03:12] LABS: Basophils % 0.6 %; Eosinophils # 0.1 10^3/uL (0.0-0.8); Eosinophils % 2.3 %; Hematocrit 25.2 % (37.0-47.0); Hemoglobin 7.7 g/dL (11.5-15.3); Lymphocytes # 0.6 10^3/uL (0.8-4.8); Lymphocytes % 16.6 %; Mean Corpuscular HGB Conc 30.6 g/dL (30.0-36.0); Mean Corpuscular Hemoglobin 25.5 pg (28.0-34.0); Mean Corpuscular Volume 83.4 fl (81-99); Monocytes # 0.7 10^3/uL (0.2-0.9); Monocytes % 18.9 %; Neutrophils # 2.14 10^3/uL (1.8-7.7); Nucleated Red Blood Cells % 0 %; Platelet Count 159 10^3/cmm (130-400); Red Blood Count 3.02 10^6/uL (4.1-5.3); White Blood Count 3.5 10^3/uL (4.0-10.0)
[2021-12-01 03:44] LABS: Anion Gap 12.6 (5-19); Blood Urea Nitrogen 20 mg/dL (8-23); Calcium 8.2 mg/dL (8.5-10.5); Carbon Dioxide 22 mmol/L (22-29); Chloride 96 mmol/L (98-107); Glucose 78 mg/dL (65-115); Osmolality Calculated 265 mOsm/kg (285-295); Potassium 3.6 mmol/L (3.5-5.1); Sodium 127 mmol/L (136-145)
[2021-12-01] MEDS: pantoprazole 40 mg SDV IVP ×2 (03:58→13:10)
--- NOTE | 2021-12-01 04:47 | NUR.SHIFT ---
Pt in be resting, no needs through the night, bed is low and locked, call light in reach
[2021-12-01] MEDS: acetaminophen 500 mg Tablet 1000 MG PO ×3 (05:43→21:20)
[2021-12-01] MEDS: heparin 5,000 unit/mL INJ 1 mL 5000 UNIT SUBCUT ×2 (05:44→17:18)
[2021-12-01 06:16] LABS: Glucose Point of Care 88 mg/dL (70-110)
[2021-12-01] MEDS: sucralfate 1 gm Tablet PO ×4 (09:14→21:18)
[2021-12-01] MEDS: ferrous sulfate EC 325 mg Tablet PO ×2 (09:14→17:18)
[2021-12-01] MEDS: cholecalciferol (vitamin D3) 1,000 unit Tablet 1000 UNIT PO (09:14)
[2021-12-01] MEDS: multivitamin therapeutic Tablet 1 TAB PO (09:15)
[2021-12-01] MEDS: sennosides-docusate Tablet 2 TAB PO ×2 (09:16→17:18)
[2021-12-01] MEDS: calcium carb-vit d 600mg/400unit 1 Tablet 1 EACH PO ×2 (09:17→17:18)
[2021-12-01] MEDS: chlorhexidine gluconate 0.12% Btl 473 mL 30 ML MUCOUS MEM ×4 (09:18→21:18)
[2021-12-01 10:03] LABS: Glucose Point of Care 155 mg/dL (70-110)
--- NOTE | 2021-12-01 10:15 | PC.SOCIAL ---
Pg 2 IMM Explained to pt Pg 2 IMM. No questions voiced. Provided pt a copy. Initialed, dated, & timed a copy & placed in chart.
[2021-12-01] MEDS: oxyCODONE 5 mg IR Tab/Cap PO ×2 (10:17→18:35)
[2021-12-01] MEDS: insulin glargine 100 units/1 mL 10 UNIT SUBCUT (10:17)
[2021-12-01 11:00] LABS: Glucose Point of Care 171 mg/dL (70-110)
[2021-12-01] MEDS: insulin lispro 100 unit/1 mL SUBCUT ×3 (11:32→21:31)
--- NOTE | 2021-12-01 12:54 | PM.PN ---
Subjective Subjective: Patient seen and examined. Patient overall doing well and eating breakfast. States the pain in her right leg is significantly improved since before surgery. No other issues or complaints at this time. Patient's dressings on in place and is clean dry and intact. She states she got up and worked with physical therapy. Vitals/I&O/Wt Last Vital Signs Temp 99.0 F 12/01/21 12:00 Pulse 80 12/01/21 12:00 Resp 16 12/01/21 12:00 BP 128/69 12/01/21 12:00 Pulse Ox 93 12/01/21 12:00 O2 Del Method 12/01/21 12:00 O2 Flow Rate 6 11/30/21 20:00 11/30/21 12/01/21 12/01/21 22:59 06:59 14:59 Intake Total 770 / 1640 120 / 120 Balance 770 / 1240 120 / 120 Physical Exam Narrative: Orthopedic examination: Examination right lower extremity shows dressings on in place around the knee as well as the anterior aspect of the thigh. Dressings are clean dry and intact. No evidence of saturation. Still mild tenderness to palpation about the right knee. Compartments to the right lower extremity soft and compressible. Patient distal pulses palpable. Sensation tact light touch the right lower extremity. DP and PT pulses palpable. She is able to wiggle her toes and will plantarflex and dorsiflex her ankle. Urinary Catheter Management: Meyer: Cath Placed During This Visit: yes, but has since been removed by the nurse Reason for Continuing Indwelling Catheter: Perioperative Use in Selected Surgeries Urinary Catheter Date of Insertion: 11/28/21 Urinary Catheter Time of Insertion: 10:17 Date Urinary Catheter Removed: 11/30/21 Time Urinary Catheter Discontinued: 09:45 Data : 12/01/21 02:22 12/01/21 02:22 Micro: Microbiology 11/29/21 20:55 Blood Culture - Preliminary Blood NEGATIVE TO DATE 11/29/21 20:50 Blood Culture - Preliminary Blood NEGATIVE TO DATE 11/28/21 10:10 Urine Culture - Final Urine,Clean Catch Escherichia coli A&P Assessment and plan (1) Closed fracture of right distal femur: Status: Acute Plan - Pain control -Partial weightbearing 30 to 50% right lower extremity -PT/OT -Hospitalist on board as primary and appreciate their medical management -Spoke with hospitalist and we will start patient up on Lovenox as she is stabilized with her hemoglobin postoperatively -Hemoglobin 7.7 this morning, with vital signs stable and afebrile. -Encourage range of motion to the right knee -Ice and elevate as needed -Patient stable from orthopedic standpoint. At this time orthopedic surgery team will sign off patient and follow peripherally. Appreciate allow me to partake in the care of this patient. If you have any questions at all pertaining to patient's care from an orthopedic standpoint feel free to contact myself Dr. Morejon. Will see me in office in 2 weeks for repeat x-rays and evaluation. Attestations Medical Necessity Statement*: Patient sustained right distal femur fracture requiring hospitalization and surgical intervention Coding Level of Care Code Acute Footwear Sales Representative for Eirka Camacho Diagnoses Closed fracture of right distal femur S72.401A
--- NOTE | 2021-12-01 15:13 | P.PN_ITS ---
Subjective Subjective: Doing okay postoperatively. Pain is controlled. Tolerating oral intake. No vomiting. Has not had a bowel movement Medications: Reviewed: Yes Vitals/I&O/Wt Last Vital Signs Temp 99.0 F 12/01/21 12:00 Pulse 85 12/01/21 14:00 Resp 16 12/01/21 12:00 BP 128/69 12/01/21 12:00 Pulse Ox 93 12/01/21 12:00 O2 Del Method 12/01/21 12:00 O2 Flow Rate 6 11/30/21 20:00 12/01/21 12/01/21 12/01/21 06:59 14:59 22:59 Intake Total 600 / 600 Balance 600 / 600 Physical Exam Narrative: Constitutional: Awake and alert, cooperative HEENT: Moist mucous membranes Respiratory: Clear to auscultation bilaterally Cardiovascular: Regular rate and rhythm, 2/6 murmur Abdomen: Soft, nontender : Meyer has been removed Extremities: Dressings are intact to right lateral hip and over the right knee Skin: No large areas of bruising noted Neuro: Speech clear, face symmetric, no involuntary movements, wiggles both toes Psych: Normal affect, pleasant and joking Urinary Catheter Management: Meyer: Cath Placed During This Visit: yes, but has since been removed by the nurse Reason for Continuing Indwelling Catheter: Perioperative Use in Selected Surgeries Urinary Catheter Date of Insertion: 11/28/21 Urinary Catheter Time of Insertion: 10:17 Date Urinary Catheter Removed: 11/30/21 Time Urinary Catheter Discontinued: 09:45 Data : 12/01/21 02:22 12/01/21 02:22 Micro: Microbiology 11/29/21 20:55 Blood Culture - Preliminary Blood NEGATIVE TO DATE 11/29/21 20:50 Blood Culture - Preliminary Blood NEGATIVE TO DATE 11/28/21 10:10 Urine Culture - Final Urine,Clean Catch Escherichia coli A&P Assessment and plan (1) Femur fracture, right: Status: Acute Qualifiers: Encounter type: initial encounter Femur location: distal, unspecified portion Fracture type: closed Fracture morphology: unspecified fracture morphology Qualified Code(s): S72.401A - Unspecified fracture of lower end of right femur, initial encounter for closed fracture (2) Anemia: Acute and chronic with iron deficiency, related to blood loss from prior GI bleeds, AVMs, varices Status posttransfusion of 3 units of packed red blood cells thus far this day Initial hemoglobin 5.8 Currently stable posttransfusion Status: Acute (3) Liver cirrhosis secondary to nonalcoholic steatohepatitis (LLOYD): Status: Chronic (4) Portal hypertension: Status: Chronic (5) 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 difficile colitis, history of colopathy #History of coronary artery disease, diabetes, insulin-dependent #History of cerebral aneurysm status post clipping #Legally deaf #Liver cirrhosis secondary to Lloyd, recurrent ascites #Fever #Ecoli UTI present on admission Status post 3 units of packed red blood cells thus far Continue to monitor hemoglobin Currently on heparin subcu for DVT prophylaxis, if H&H remained stable okay with transition to Lovenox for DVT prophylaxis for 30 days postoperatively Discontinue IV fluids Resume home spironolactone and if blood pressure tolerates subsequently home Bumex Change to oral augmentin for UTI upon discharge; continue rocephin presently Has incentive spirometer Monitor fever curve Blood culture pending Covid PCR negative 11/29 Increase Lantus dosing closer to home amount Continue home mirtazapine Change PPI to oral, presently on Carafate but there is a national shortage and it will not be able to be prescribed upon discharge beyond what ever she may have at home already Continue rifaximin and lactulose, both home medications Therapy as per orthopedics Seen by general surgery re: possible GI bleed. No clinical evidence of GI bleed at this time. Follow up as outpatient, possible capsule endoscopy Supportive care otherwise Anticipate discharge to skilled facility when stable hemoglobin, fever curve and bed is available Full code DVT prophylaxis: on heparin SQ Dispo: discharge to SNF Attestations Medical Necessity Statement*: Requires ongoing inpatient stay for continued management status post distal femur fracture that was surgically repaired. She has urinary tract infection, persistent low-grade temperatures that may be simply due to postoperative atelectasis, need to reinitiate diuretic therapy with her comorbidities and requiring close monitoring of hemoglobin in the setting of need for anticoagulation for DVT prophylaxis along with known high risk for bleeding related to varices, AV malformations and prior GI bleeding Coding Level of Care Code Acute Patient Support Tech for g Fwd Diagnoses Femur fracture, right S72.401A Encounter type: initial encounter Femur location: distal, unspecified portion Fracture type: closed Fracture morphology: unspecified fracture morphology Anemia D64.9 Liver cirrhosis secondary to nonalcoholic steatohepatitis (LLOYD) K75.81; K74.60 Portal hypertension K76.6 AVM (arteriovenous malformation) of colon with hemorrhage K55.21
[2021-12-01 17:07] LABS: Glucose Point of Care 237 mg/dL (70-110)
[2021-12-01] MEDS: mirtazapine 15 mg Tablet 7.5 MG PO (17:19)
--- NOTE | 2021-12-01 18:14 | PC.NURSE ---
PATIENT HAS DONE WELL TODAY. TOLERATED SITTING UP TODAY. SKIN ABRASION DRESSINGS CHANGED. ADEQUATE OUTPUT. GOOD PO INTAKE. PATIENT CURRENTLY RESTING IN BED WITH NO COMPLAINTS AT THIS TIME.
[2021-12-01 20:45] LABS: Glucose Point of Care 174 mg/dL (70-110)
[2021-12-01] MEDS: cefTRIAXone 1,000 MG in sodium chloride 0.9% (plus) 50 ML 100 MG IV (21:17)
[2021-12-01] MEDS: TRAMadol 50 mg Tablet PO (22:10)
[2021-12-02] VITALS (18 sets, daily range): BP systolic 109–133; BP diastolic 51–73; PULSE 69–85; RESP 14–20; TEMP 36.4–37.5; O2SAT 96–100
[2021-12-02] MEDS: pantoprazole 40 mg SDV IVP (00:28)
[2021-12-02 03:06] LABS: Eosinophils # 0.1 10^3/uL (0.0-0.8); Eosinophils % 3.8 %; Hematocrit 23.7 % (37.0-47.0); Hemoglobin 7.3 g/dL (11.5-15.3); Lymphocytes # 0.7 10^3/uL (0.8-4.8); Lymphocytes % 24.3 %; Mean Corpuscular HGB Conc 30.8 g/dL (30.0-36.0); Mean Corpuscular Hemoglobin 25.5 pg (28.0-34.0); Mean Corpuscular Volume 82.9 fl (81-99); Mean Platelet Volume 9.2 fL (7.4-10.4); Monocytes # 0.5 10^3/uL (0.2-0.9); Monocytes % 18.4 %; Neutrophils # 1.49 10^3/uL (1.8-7.7); Neutrophils % 51.8 %; Nucleated Red Blood Cells % 0 %; Platelet Count 175 10^3/cmm (130-400); Red Blood Count 2.86 10^6/uL (4.1-5.3); Red Cell Distribution Width 16.1 % (12.1-15.1); White Blood Count 2.9 10^3/uL (4.0-10.0)
[2021-12-02 03:32] LABS: Blood Urea Nitrogen 24 mg/dL (8-23); Carbon Dioxide 22 mmol/L (22-29); Chloride 100 mmol/L (98-107); Glucose 111 mg/dL (65-115); Osmolality Calculated 277 mOsm/kg (285-295); Sodium 131 mmol/L (136-145)
[2021-12-02] MEDS: ferrous sulfate EC 325 mg Tablet PO ×2 (05:36→18:09)
[2021-12-02] MEDS: acetaminophen 500 mg Tablet 1000 MG PO ×3 (05:36→21:50)
[2021-12-02] MEDS: heparin 5,000 unit/mL INJ 1 mL 5000 UNIT SUBCUT ×2 (05:36→18:09)
[2021-12-02 06:05] LABS: Glucose Point of Care 120 mg/dL (70-110)
[2021-12-02] MEDS: spironolactone 25 mg Tablet PO (07:56)
[2021-12-02] MEDS: TRAMadol 50 mg Tablet PO (07:59)
[2021-12-02] MEDS: calcium carb-vit d 600mg/400unit 1 Tablet 1 EACH PO ×2 (09:04→18:08)
[2021-12-02] MEDS: sucralfate 1 gm Tablet PO ×4 (09:04→21:50)
[2021-12-02] MEDS: pantoprazole DR 40 mg Tablet PO ×2 (09:04→18:08)
[2021-12-02] MEDS: multivitamin therapeutic Tablet 1 TAB PO (09:04)
[2021-12-02] MEDS: cholecalciferol (vitamin D3) 1,000 unit Tablet 1000 UNIT PO (09:04)
[2021-12-02] MEDS: sennosides-docusate Tablet 2 TAB PO ×2 (09:05→18:07)
[2021-12-02] MEDS: insulin glargine 100 units/1 mL 15 UNIT SUBCUT (09:05)
[2021-12-02] MEDS: chlorhexidine gluconate 0.12% Btl 473 mL 30 ML MUCOUS MEM ×4 (09:07→21:54)
[2021-12-02] MEDS: oxyCODONE 5 mg IR Tab/Cap PO (11:00)
[2021-12-02 11:04] LABS: Glucose Point of Care 209 mg/dL (70-110)
[2021-12-02] MEDS: sodium chloride 0.9% (100 ml) 100 ML 50 ML (12:22)
[2021-12-02 12:29] LABS: Adenovirus Not Detected (NOT DETECT); Chlamydia Pneumoniae Not Detected (NOT DETECT); Coronavirus 229E,HKU1,NL63,OC4 Not Detected (NOT DETECT); Human Metapneumovirus Not Detected (NOT DETECT); Human Rhinovirus/Enterovirus Not Detected (NOT DETECT); Influenza A Not Detected (NOT DETECT); Influenza A H1 Not Detected (NOT DETECT); Influenza A H1-2009 Not Detected (NOT DETECT); Influenza A H3 Not Detected (NOT DETECT); Influenza B Not Detected (NOT DETECT); Mycoplasma Pneumoniae Not Detected (NOT DETECT); Parainfluenza Virus Type 1 Not Detected (NOT DETECT); Parainfluenza Virus Type 2 Not Detected (NOT DETECT); Parainfluenza Virus Type 3 Not Detected (NOT DETECT); Parainfluenza Virus Type 4 Not Detected (NOT DETECT); Respiratory Syncytial Virus A Not Detected (NOT DETECT); Respiratory Syncytial Virus B Not Detected (NOT DETECT); SARS-COV-2 Not Detected (NOT DETECT)
[2021-12-02] MEDS: insulin lispro 100 unit/1 mL SUBCUT ×2 (12:30→18:09)
[2021-12-02] MEDS: magnesium hydroxide 30 mL UDC PO (14:49)
--- NOTE | 2021-12-02 14:51 | PM.PN ---
Subjective Subjective: Hospital course, labs appreciated. Examination sitting comfortably in chair. States feeling weak. States pain is controlled. Complaining of constipation. T-max in last 24 hours 100.7 Fahrenheit yesterday afternoon. Has remained hemodynamically stable, on room air. Vitals/I&O/Wt Last Vital Signs Temp 98.4 F 12/02/21 12:28 Pulse 85 12/02/21 14:32 Resp 16 12/02/21 12:28 BP 113/64 12/02/21 12:28 Pulse Ox 99 12/02/21 12:28 O2 Del Method 12/02/21 12:28 O2 Flow Rate 6 11/30/21 20:00 12/01/21 12/02/21 12/02/21 22:59 06:59 14:59 Intake Total 480 / 1080 600 / 600 Balance 480 / 1080 600 / 600 Physical Exam Narrative: Constitutional: Awake and alert, cooperative HEENT: Moist mucous membranes Respiratory: Clear to auscultation bilaterally Cardiovascular: Regular rate and rhythm, 2/6 murmur Abdomen: Soft, nontender : Meyer has been removed Extremities: Dressings are intact to right lateral hip and over the right knee Skin: No large areas of bruising noted Neuro: Speech clear, face symmetric, no involuntary movements, wiggles both toes Psych: Normal affect, pleasant and joking Urinary Catheter Management: Meyer: Cath Placed During This Visit: yes, but has since been removed by the nurse Reason for Continuing Indwelling Catheter: Perioperative Use in Selected Surgeries Urinary Catheter Date of Insertion: 11/28/21 Urinary Catheter Time of Insertion: 10:17 Date Urinary Catheter Removed: 11/30/21 Time Urinary Catheter Discontinued: 09:45 Data : 12/02/21 02:32 12/02/21 02:32 A&P Assessment and plan (1) Femur fracture, right: Post-ORIF. Day 3. Status: Acute Qualifiers: Encounter type: initial encounter Femur location: distal, unspecified portion Fracture morphology: unspecified fracture morphology Fracture type: closed Qualified Code(s): S72.401A - Unspecified fracture of lower end of right femur, initial encounter for closed fracture (2) Anemia: Seven-pointAcute and chronic with iron deficiency, related to blood loss from prior GI bleeds, AVMs, varices Status posttransfusion of 3 units of packed red blood cells thus far this day. Initial hemoglobin 5.8. 3 today. Trending down for last 2 days. Patient complaining of weakness mild dizziness. Will transfuse monitor PRBC today. Oral iron supplementation. 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 coli UTI. Check COVID-19 PCR. Currently patient on room air. Chest x-ray without any abnormality. Leukopenia. Could be secondary to chronic portal hypertension and cirrhosis. Continue ceftriaxone as per culture sensitivities. Day 3 today. Aggressive bowel regimen. Insulin sliding scale. Lantus 15 units nightly. Continue other chronic home medication including spironolactone, rifaximin mean, mirtazapine, Bumex. Discharge planning: Plan to discharge in next 24 hours to SNF. Prior authorization received. Full code DVT prophylaxis: on heparin SQ Dispo: discharge to SNF Attestations Medical Necessity Statement*: Requires further hospitalization for management of E. coli UTI, anemia in a patient Giurgius post-ORIF with a history of portal hypertension and AVM of colon with hemorrhage Time Spent in Patient Care: Greater than 35 minutes Coding Level of Care Code Acute Butadiene Convertor Operator for Erika Camacho Diagnoses Femur fracture, right S72.401A Encounter type: initial encounter Femur location: distal, unspecified portion Fracture morphology: unspecified fracture morphology Fracture type: closed Anemia D64.9 Liver cirrhosis secondary to nonalcoholic steatohepatitis (LLOYD) K75.81; K74.60 Portal hypertension K76.6 AVM (arteriovenous malformation) of colon with hemorrhage K55.21
[2021-12-02 16:52] LABS: Glucose Point of Care 216 mg/dL (70-110)
[2021-12-02] MEDS: mupirocin oint 22 gm 1 APPLIC NASAL (18:10)
[2021-12-02] MEDS: mirtazapine 15 mg Tablet 7.5 MG PO (18:12)
[2021-12-02 20:56] LABS: Glucose Point of Care 176 mg/dL (70-110)
[2021-12-02] MEDS: cefTRIAXone 1,000 MG in sodium chloride 0.9% (plus) 50 ML 100 MG IV (21:50)
[2021-12-03 03:31] VITALS: BP 120/58; PULSE 75; RESP 16; TEMP 37.1; O2SAT 95
[2021-12-03 06:00] VITALS: PULSE 74
[2021-12-03 06:37] LABS: Glucose Point of Care 125 mg/dL (70-110)
[2021-12-03] MEDS: ferrous sulfate EC 325 mg Tablet PO (06:42)
[2021-12-03] MEDS: spironolactone 25 mg Tablet PO (06:42)
[2021-12-03] MEDS: heparin 5,000 unit/mL INJ 1 mL 5000 UNIT SUBCUT (06:42)
[2021-12-03] MEDS: acetaminophen 500 mg Tablet 1000 MG PO ×2 (06:42→13:01)
[2021-12-03 07:52] VITALS: BP 118/67; PULSE 69; RESP 16; TEMP 36.9; O2SAT 96
[2021-12-03] MEDS: sucralfate 1 gm Tablet PO ×2 (08:41→13:00)
[2021-12-03] MEDS: cholecalciferol (vitamin D3) 1,000 unit Tablet 1000 UNIT PO (08:41)
[2021-12-03] MEDS: sennosides-docusate Tablet 2 TAB PO (08:42)
[2021-12-03] MEDS: multivitamin therapeutic Tablet 1 TAB PO (08:42)
[2021-12-03] MEDS: pantoprazole DR 40 mg Tablet PO (08:43)
[2021-12-03] MEDS: insulin glargine 100 units/1 mL 15 UNIT SUBCUT (08:43)
[2021-12-03] MEDS: bumetanide 1 mg Tablet PO (08:43)
[2021-12-03] MEDS: calcium carb-vit d 600mg/400unit 1 Tablet 1 EACH PO (08:43)
[2021-12-03] MEDS: chlorhexidine gluconate 0.12% Btl 473 mL 30 ML MUCOUS MEM (08:51)
[2021-12-03 09:46] LABS: Basophils % 0.8 %; Eosinophils # 0.1 10^3/uL (0.0-0.8); Eosinophils % 1.8 %; Hematocrit 29.2 % (37.0-47.0); Hemoglobin 8.8 g/dL (11.5-15.3); Lymphocytes # 0.6 10^3/uL (0.8-4.8); Lymphocytes % 15.9 %; Mean Corpuscular HGB Conc 30.1 g/dL (30.0-36.0); Mean Corpuscular Volume 86.1 fl (81-99); Mean Platelet Volume 8.8 fL (7.4-10.4); Monocytes # 0.6 10^3/uL (0.2-0.9); Monocytes % 14.4 %; Neutrophils # 2.55 10^3/uL (1.8-7.7); Neutrophils % 66.6 %; Nucleated Red Blood Cells % 0 %; Platelet Count 199 10^3/cmm (130-400); Red Blood Count 3.39 10^6/uL (4.1-5.3); Red Cell Distribution Width 15.9 % (12.1-15.1); White Blood Count 3.8 10^3/uL (4.0-10.0)
[2021-12-03] MEDS: cefTRIAXone 1,000 MG in sodium chloride 0.9% (plus) 50 ML 100 MG IV (09:50)
[2021-12-03] MEDS: mupirocin oint 22 gm 1 APPLIC NASAL (10:07)
--- NOTE | 2021-12-03 10:35 | P.DS_ITS ---
Discharge Providers Date of Admission: 11/28/21 11:02 Date of Discharge: December 03, 2021 Attending Provider at Admission: Jennifer Tellez MD Attending Provider at Discharge: Tejinder Heath MD Consults: Orthopedics: Dr. Morejon Primary Care Provider: Che Holt DO Diagnoses at Discharge Discharge Diagnosis (1) Femur fracture, right: Status: Acute Qualifiers: Encounter type: initial encounter Femur location: distal, unspecified portion Fracture morphology: unspecified fracture morphology Fracture type: closed Qualified Code(s): S72.401A - Unspecified fracture of lower end of right femur, initial encounter for closed fracture (2) Anemia: Status: Acute (3) Liver cirrhosis secondary to nonalcoholic steatohepatitis (MENARD): Status: Chronic (4) Portal hypertension: Status: Chronic Permanent problem details: EGD esophageal banding on 03/25/16 she has been transfused multiple times (5) AVM (arteriovenous malformation) of colon with hemorrhage: Status: Chronic Reason for Visit Reason for Visit: LEFT SHOUDLER/RIGHT KNEE PAIN S/P FALL Brief History: History as per HPI: Martha Moore is a 76 year old female Martha Moore is a 75 year old female with a past medical history of Menard, liver cirrhosis, recurrent ascites, history of recurrent GI bleed, portal hypertension, history of esophageal varices, history of deconditioning, history of AV malformations, history of C. difficile colitis, history of coagulopathy, CAD, diabetes, insulin-dependent, history of cerebral aneurysm status post clipping, who is legally deaf, who is legally deaf, who presents [facility] due to a ground-level fall.? She states her blood sugar was low and therefore she was going towards the kitchen to get something to eat.? When she tried to get into bed she lost her balance and fell forward striking her arm and knees on the ground.? Denies neck pain, denies numbness tingling weakness, shortness of breath or chest pain.? It was a mechanical fall.? She did not have any lightheadedness or dizziness prior to falling.Patient does state that she may have had bloody stool 2 days prior to admission and has been generally feeling bit weak lately. Otherwise is ok. Hard of hearing. ED course: 130/64, respiratory 18, pulse 87, temperature 98.2, pulse ox 100 on room air.? Knee x-ray and femur x-ray showed comminuted displaced right distal femoral supracondylar fracture.? Hemoglobin level 5.8.? 2 units packed RBC order ed.? Dr. Morejon orthopedic surgeon was consulted.? Planning to take patient to surgery in a.m.? Patient will be admitted to medicine at this time. Patient was most recently admitted in August for altered mental status secondary to UTI and elevated ammonia levels.? She was discharged on Protonix and Carafate since her hemoglobin was also 7.1.? There was no active GI bleed at that time.? She was discharged back to local residential.? At that hospital visit she also had a UTI positive for Proteus and was given Augmentin at discharge. Hospital Course Hospital Course Patient admitted to hospital for evaluation and management. Admission she was found to have a hemoglobin of 5.8. She was not having any active GI bleed. It is believed her low hemoglobin is because of chronic loose secondary to esophageal varices. Surgery was consulted. She was advised to follow-up as an outpatient for possible capsule endoscopy. She required 3 units of blood transfusion prior to ORIF. Orthopedics was consulted and she underwent ORIF with retrograde supracondylar nail on 11/29. She continued to work well with physical therapy postoperatively. Her postoperative stay was complicated by her developing low-grade fevers. COVID-19 was ruled out. Patient did not require any oxygen during hospitalization. Low-grade fever is most likely secondary to UTI. Her blood cultures remain negative. Urine culture came back positive for E. coli. She has been on antibiotics as per culture sensitivities. She has finished a course of IV ceftriaxone. Postoperatively she required amount of blood transfusion. Her hemoglobin has remained stable. She is on discharge hemodynamically stable condition to SNF for further rehabitation with advised to follow-up with orthopedics as directed and with surgery within the next 1 week. Physical Exam Narrative: Constitutional: Awake and alert, cooperative HEENT: Moist mucous membranes Respiratory: Clear to auscultation bilaterally Cardiovascular: Regular rate and rhythm, 2/6 murmur Abdomen: Soft, nontender : Meyer has been removed Extremities: Dressings are intact to right lateral hip and over the right knee Skin: No large areas of bruising noted Neuro: Speech clear, face symmetric, no involuntary movements, wiggles both toes Psych: Normal affect, pleasant and joking Urinary Catheter Management: Meyer: Cath Placed During This Visit: yes, but has since been removed by the nurse Reason for Continuing Indwelling Catheter: Perioperative Use in Selected Schilling rgeries Urinary Catheter Date of Insertion: 11/28/21 Urinary Catheter Time of Insertion: 10:17 Date Urinary Catheter Removed: 11/30/21 Time Urinary Catheter Discontinued: 09:45 Discharge Data Studies Completed and Pending Completed Studies During Hospitalization Category Date Time Status CT cervical spin wo con* 43509 Routine Cat Scan 11/28/21 17:[address] head wo con* [id number] Routine Cat Scan 11/28/21 17:[address] knee RT wo con* [id number] Stat Cat Scan 11/28/21 10:55 Completed CXRP [XR chest 1V portable [id number]] Routine Exams 11/30/21 16:28 Completed XR femur RT min 2V* [id number] Routine Exams 11/29/21 Completed XR femur RT min 2V* [id number] Routine Exams 11/29/21 11:41 Completed XR femur RT min 2V* [id number] Stat Exams 11/28/21 08:47 Completed XR hip RT 2-3V wo/w pel* [id number] Stat Exams 11/28/21 10:55 Completed XR knee LT 1-2V [id number] Routine Exams 11/29/21 00:24 Completed XR knee LT 3V* [id number] Stat Exams 11/28/21 08:47 Completed XR knee RT 3V* 23520 Stat Exams 11/28/21 08:47 Completed XR shoulder LT min 2V* [id number] Stat Exams 11/28/21 08:47 Completed Pending at discharge Category Date Time Status Blood Culture Stat Lab 11/29/21 20:50 Results Leukocyte Reduced RBC Routine Lab 11/28/21 10:24 Results Leukocyte Reduced RBC Stat Lab 12/02/21 09:30 Results Type and Screen Stat Lab 11/28/21 10:24 Results Type and Screen Stat Lab 12/02/21 09:30 Results Radiology Impressions Shoulder X-Ray 11/28/21 08:47 IMPRESSION: No visualized fractures or dislocations of left shoulder. Degenerative changes, as noted above. Hip/Pelvis X-Ray 11/28/21 10:55 IMPRESSION: Extensive hardware involving the right pelvis and acetabulum from prior ORIF. Hardware severely compromises assessment obscures the femoral head. No gross acute fracture is identified. Consider CT to further assess clinically warranted. Knee CT 11/28/21 10:55 IMPRESSION: 1. Distal femur fracture, as described above. 2. Additional findings, as above. Cervical Spine CT 11/28/21 17:20 IMPRESSION: No cervical spine fracture. Head CT 11/28/21 17:20 IMPRESSION: No acute intracranial abnormality. Knee X-Ray 11/29/21 00:24 IMPRESSION: There are no acute osseous findings. Femur X-Ray 11/29/21 11:41 IMPRESSION: Intramedullary teagan transfixes a distal femur fracture in satisfactory position. Chest X-Ray 11/30/21 16:28 Impression: Atherosclerosis. Laboratory Results WBC 3.8 10^3/uL (4.0-10.0) L 12/03/21 09: RBC 3.39 10^6/uL (4.1-5.3) L 12/03/21 09:27 Hgb 8.8 g/dL (11.5-15.3) L 12/03/21 09: Hct 29.2 % (37.0-47.0) L 12/03/21 09: MCV 86.1 fl (81-99) 12/03/21 09: MCH 26.0 pg (28.0-34.0) L 12/03/21 09: MCHC 30.1 g/dL (30.0-36.0) 12/03/21 09: RDW 15.9 % (12.1-15.1) H 12/03/21 09: Plt Count 199 10^3/cmm (130-400) 12/03/21 09: MPV 8.8 fL (7.4-10.4) 12/03/21 09: Neut % (Auto) 66.6 % 12/03/21 09: Lymph % (Auto) 15.9 % 12/03/21 09: [place] % (Auto) 14.4 % 12/03/21 09: Eos % (Auto) 1.8 % 12/03/21 09: Baso % (Auto) 0.8 % 12/03/21 09:27 Neut # (Auto) 2.55 10^3/uL (1.8-7.7) 12/03/21 09: Lymph # (Auto) 0.6 10^3/uL (0.8-4.8) L 12/03/21 09:27 [place] # (Auto) 0.6 10^3/uL (0.2-0.9) 12/03/21 09:27 Eos # (Auto) 0.1 10^3/uL (0.0-0.8) 12/03/21 09:27 Baso # (Auto) 0.0 10^3/uL (0.0-0.1) 12/03/21 09:27 Nucleated RBC % (auto) 0 % 12/03/21 09:27 Nucleated RBCs # 0.0 /100WBC 12/03/21 09:27 PT 16.80 SECONDS (12.1-14.9) H 11/29/21 07:18 INR 1.33 (0.8-1.2) H 11/29/21 07:18 Sodium 131 mmol/L (136-145) L 12/02/21 02:32 Potassium 4.0 mmol/L (3.5-5.1) 12/02/21 02:32 Chloride 100 mmol/L (98-107) 12/02/21 02:32 Carbon Dioxide 22 mmol/L (22-29) 12/02/21 02:32 Anion Gap 13.0 (5-19) 12/02/21 02:32 BUN 24 mg/dL (8-23) H 12/02/21 02:32 Creatinine 0.7 mg/dL (0.5-0.9) 12/02/21 02:32 GFR Calculation Not Reportable 12/02/21 02:32 Glucose 111 mg/dL (65-115) 12/02/21 02:32 POC Glucose 125 mg/dL (70-110) H 12/03/21 06:26 Estimat Average Glucose 108 11/28/21 09:20 Hemoglobin A1c 5.4 % (4.0-6.0) 11/28/21 09:20 Calculated Osmolality 277 mOsm/kg (285-295) L 12/02/21 02:32 Lactic Acid 2.0 mmol/L (0.5-2.2) 11/28/21 09:20 Calcium 8.0 mg/dL (8.5-10.5) L 12/02/21 02:32 Phosphorus 2.8 mg/dL (2.5-4.5) 11/29/21 07:18 Magnesium 1.7 mg/dL (1.7-2.3) 11/29/21 07:18 Total Bilirubin 0.7 mg/dL (0.15-1.2) 11/29/21 07:18 AST 32 U/L (0-32) 11/29/21 07:18 ALT 12 U/L (0-33) 11/29/21 07:18 Alkaline Phosphatase 164 U/L (35-105) H 11/29/21 07:18 NT-Pro-B Natriuret Pep 1117 pg/mL (0-450) H 11/28/21 09:20 Total Protein 6.0 g/dL (6.6-8.7) L 11/29/21 07:18 Albumin 2.8 g/dL (3.5-5.2) L 11/29/21 07:18 Globulin 3.2 g/dL (1.3-4.6) 11/29/21 07:18 Triglycerides 55 mg/dL (0-150) 11/28/21 09:20 Cholesterol 127 mg/dL (0-200) 11/28/21 09:20 LDL Cholesterol, Calc 43 mg/dL (50-129) L 11/28/21 09:20 HDL Cholesterol 73 mg/dL (60-100) 11/28/21 09:20 LDL/HDL Ratio 0.59 RATIO (0.00-3.22) 11/28/21 09:20 Cholesterol/HDL Ratio 1.74 mg/dL (0.0-4.40) 11/28/21 09:20 Procalcitonin 0.32 ng/mL (0-0.5) 11/28/21 09:20 TSH 1.61 uIU/mL (0.27-4.20) 11/28/21 09:20 Urine Color Yellow (Yellow) 11/28/21 10:10 Urine Appearance Hazy (CLEAR) A 11/28/21 10:10 Urine pH 5 (5-7) 11/28/21 10:10 Ur Specific [place] 1.015 (1.005-1.030) 11/28/21 10:10 Urine Protein Neg (Negative) 11/28/21 10:10 Urine Glucose (UA) Norm (Normal) 11/28/21 10:10 Urine Ketones Negative (Negative) 11/28/21 10:10 Urine Blood Neg (Negative) 11/28/21 10:10 Urine Nitrate Negative (Negative) 11/28/21 10:10 Urine Bilirubin Neg (Negative) 11/28/21 10:10 Urine Urobilinogen Norm mg/dL (Negative) 11/28/21 10:10 Ur Leukocyte Esterase Negative (Negative) 11/28/21 10:10 Urine RBC None /hpf (0-2) 11/28/21 10:10 Urine WBC 5-10 /hpf (0-5) H 11/28/21 10:10 Ur Squamous Epith Cells None /hpf (0-5) 11/28/21 10:10 Amorphous Sediment Not Reportable 11/28/21 10:10 Urine Bacteria 4+ /hpf (NONE) H 11/28/21 10:10 Coronavirus 229E (PCR) Not detected (NOT DETECT) 12/02/21 10:37 SARS-CoV-2 (PCR) Not detected (NOT DETECT) 12/02/21 10:37 SARS-CoV-2 Ag (Rapid) Negative (Negative) 11/29/21 18:20 Blood Type O Positive 12/02/21 09:30 Rho(D) Type Positive 12/02/21 09:30 Antibody Screen Negative 12/02/21 09:30 Crossmatch See Detail 12/02/21 09:30 Vitals Last Vital Signs Temp 98.5 F 12/03/21 07:52 Pulse 69 12/03/21 07:52 Resp 16 12/03/21 07:52 BP 118/67 12/03/21 07:52 Pulse Ox 96 12/03/21 07:52 O2 Del Method 12/03/21 07:52 O2 Flow Rate 6 11/30/21 20:00 Discharge Plan Discharge Patient Disposition: Xfer SNF Condition: Stable Prescriptions: New oxycodone 5 mg tablet 5 mg PO Q6H PRN (Reason: pain) Qty: 28 0RF calcium carbonate-vitamin D3 600 mg-10 mcg (400 unit) Tablet 1 ea PO BID 30 Days Qty: 60 0RF enoxaparin [Lovenox] 30 mg/0.3 mL syringe 30 mg SUBCUT DAILY 30 Days Qty: 30 0RF Rx Instructions: 1 dose(injection) 30 mg Lovenox daily by subcut for a total of 30 days ondansetron 4 mg tablet,disintegrating 4 mg PO DAILY PRN (Reason: nausea and vomiting) 5 Days Qty: 10 0RF Continued ferrous sulfate 325 mg (65 mg iron) Tablet 325 mg PO BID@07,17 insulin lispro [Humalog KwikPen Insulin] 100 unit/mL Insulin Pen See Rx Instructions .ROUTE .COMPLEX Rx Instructions: sliding scale before meals and at bedtime 140-175=2 units 176-200=3 units 201-250=5 units 251-299=7 units 300 plus =9 units polyethylene glycol 3350 17 gram/dose Powder 17 g PO DAILY@07 mirtazapine 7.5 mg tablet 7.5 mg PO BEDTIME@19 melatonin 5 mg Tablet 5 mg PO BEDTIME@19 acetaminophen 500 mg Tablet 1,000 mg PO Q6H PRN (Reason: Pain) magnesium hydroxide [Milk of Magnesia] 400 mg/5 mL Suspension 30 ml PO DAILY PRN (Reason: Constipation) nitroglycerin [Nitrostat] 0.4 mg Tablet, Sublingual 0.4 mg SUBLINGUAL Q5M PRN (Reason: Chest Pain) Rx Instructions: do not exceed 3 doses per episode bumetanide 1 mg Tablet 1 mg PO DAILY Qty: 60 0RF sucralfate 1 gram Tablet 1 g PO QID pantoprazole 40 mg Tablet,Delayed Release (Dr/Ec) 40 mg PO BID Xifaxan 550 mg Tablet 550 mg PO BID Lantus Solostar U-100 Insulin 100 unit/mL (3 mL) insulin pen 20 unit SUBCUT DAILY@08 lactulose 20 gram/30 mL solution 10 g PO DAILY PRN (Reason: Constipation) ondansetron HCl 8 mg Tablet 8 mg PO Q8H PRN (Reason: Nausea) tramadol 50 mg Tablet 50 mg PO Q6H PRN (Reason: Pain) magnesium oxide [MagOx] 400 mg (241.3 mg magnesium) tablet 400 mg PO BID Qty: 60 0RF Changed spironolactone 25 mg tablet 25 mg PO DAILY@07 Qty: 30 0RF Discontinued metolazone 2.5 mg tablet 2.5 mg PO DAILY Qty: 30 0RF Discharge Orders: Discharge Order (Routine); Ordered 12/03/21 Ordered By: Tejinder Heath Referrals: [facility] [Outside] Gilson Morejon DO [Physician] - 12/13/21 8:30 am Raymond Armando MD [Physician] - 2 weeks Discharge Diet: Cardiac and Low Salt Discharge Activity: Limit activity as instructed Patient Instructions: Opioid Safety Activity Restrictions/Additional Instructions: Orthopedic discharge instructions: Maintain Silverlon dressing on in place and keep clean dry and intact. If becomes saturated may change with new dry dressing. Take pain medication as prescribed Take DVT Prophylaxis of Lovenox as prescribed partial weightbearing 30 to 50% right lower extremity Encourage range of motion to the right knee as tolerated Ice and elevate as needed Take antinausea medication as needed Follow-up in the orthopedic office with Dr. Morejon in 2 weeks To contact my office with any questions or concerns. Please follow-up with surgery within next 2 weeks for possible endoscopy versus capsule endoscopy. Please repeat hemoglobin within next 1 week. Going forward he will need to be on Protonix twice daily along with Carafate. Discharge Attestations Time Spent in Discharge Care*: greater than 30 min Specific Discharge Activities: educating patient, discussing with pcp/other providers, discussing with watch case polisher/social workers/dc planners, documenting/other paperwork and evaluating patient/reviewing data Status at Discharge: Cognitive status at discharge: cognitively intact , Behavioral status at discharge: cooperative , Functional status at discharge: uses cane/walker , Overall status at discharge: patient is progressing back to baseline Quality Metrics Clinical Quality Measures [ No reported AMI, CVA or VTE this stay] Coding Level of Care Code Acute [facility] DC note Diagnoses Femur fracture, right S72.401A Encounter type: initial encounter Femur location: distal, unspecified portion Fracture morphology: unspecified fracture morphology Fracture type: closed Anemia D64.9 Liver cirrhosis secondary to nonalcoholic steatohepatitis (MENARD) K75.81; K74.60 Portal hypertension K76.6 AVM (arteriovenous malformation) of colon with hemorrhage K55.21
--- NOTE | 2021-12-03 11:00 | PC.SOCIAL ---
IMM Update pg 2 of IMM updated and reviewed w/ patient. Copy provided. Copy in chart dated and initialed.
[2021-12-03 11:46] LABS: Glucose Point of Care 211 mg/dL (70-110)
[2021-12-03 11:49] VITALS: BP 115/63; PULSE 65; RESP 18; TEMP 36.7; O2SAT 93
[2021-12-03] MEDS: insulin lispro 100 unit/1 mL SUBCUT (13:00)
[2021-12-03 13:35] VITALS: BP 115/63; PULSE 65; RESP 18; TEMP 36.7; O2SAT 93
--- NOTE | 2021-12-03 13:35 | PC.NURSE ---
report called to jennifer LI at [facility] [place].
== END 2021-12-03 13:36 | disposition skilled nursing facility (03) | DRG 480 ==
LOC: ER 11:01 → ER IP 12:09 → MEDSURG 14:05
PROVIDERS: Anesthesiology; Hospitalist; Student in an Organized Health Care Education/Training Program; Admitting Provider Internal Medicine; Emergency Provider Emergency Medicine; PCP Family Medicine; Visit Provider Student in an Organized Health Care Education/Training Program
PROC: 0QSB06Z Reposition Right Lower Femur with Intramedullary Internal Fixation Device, Open Approach (ICD-10-PCS; principal; 2021-11-29 08:00)
DX: S72.451A Displaced supracondylar fracture without intracondylar extension of lower end of right femur, initial encounter for closed fracture (principal); K55.21 Angiodysplasia of colon with hemorrhage; K76.6 Portal hypertension; N39.0 Urinary tract infection, site not specified; W01.0XXA Fall on same level from slipping, tripping and stumbling without subsequent striking against object, initial encounter; H91.93 Unspecified hearing loss, bilateral; Z97.4 Presence of external hearing-aid; E11.9 Type 2 diabetes mellitus without complications; D50.0 Iron deficiency anemia secondary to blood loss (chronic); K75.81 Nonalcoholic steatohepatitis (NASH); I25.10 Atherosclerotic heart disease of native coronary artery without angina pectoris; Z87.440 Personal history of urinary (tract) infections; K64.4 Residual hemorrhoidal skin tags; Z79.4 Long term (current) use of insulin; K59.00 Constipation, unspecified; D64.9 Anemia, unspecified; B96.20 Unspecified Escherichia coli [E. coli] as the cause of diseases classified elsewhere; R19.5 Other fecal abnormalities
CPT/HCPCS: 36415; 36416; 36430; 51702; 70450; 71045; 72125; 73030; 73502; 73552; 73560; 73562; 73700; 76000; 80048; 80053; 80061; 81001; 82274; 82962; 83036; 83605; 83735; 83880; 84100; 84145; 84443; 85014; 85018; 85025; 85610; 86850; 86900; 86902; 86905; 86920; 87040; 87077; 87086; 87186; 87426; 87635; 96365; 96366; 96372; 96375; 97110; 97161; 97166; 97530; 99285; C1713; C9113; J0692; J0696; J1170; J1644; J1815; J2405; J2704; J3010; P9016; P9041; P9051

== ENCOUNTER 2021-12-13 04:52 | Outpatient (CLI) | payer MEDICARE, MEDICAID, SELFPAY ==
[2021-12-13 05:08] LABS: Basophils % 0.9 %; Eosinophils # 0.1 10^3/uL (0.0-0.8); Eosinophils % 3.9 %; Hematocrit 27.2 % (37.0-47.0); Hemoglobin 8.2 g/dL (11.5-15.3); Lymphocytes # 0.5 10^3/uL (0.8-4.8); Lymphocytes % 21.8 %; Mean Corpuscular HGB Conc 30.1 g/dL (30.0-36.0); Mean Corpuscular Hemoglobin 25.6 pg (28.0-34.0); Monocytes # 0.3 10^3/uL (0.2-0.9); Monocytes % 13.5 %; Neutrophils # 1.36 10^3/uL (1.8-7.7); Neutrophils % 59.5 %; Nucleated Red Blood Cells % 0 %; Platelet Count 197 10^3/cmm (130-400); Red Cell Distribution Width 16.4 % (12.1-15.1); White Blood Count 2.3 10^3/uL (4.0-10.0)
== END 2021-12-13 04:53 | disposition home or self-care (01) ==
PROVIDERS: PCP Family Medicine; Visit Provider Internal Medicine
DX: D64.9 Anemia, unspecified (principal); S72.401A Unspecified fracture of lower end of right femur, initial encounter for closed fracture; X58.XXXA Exposure to other specified factors, initial encounter
CPT/HCPCS: 73552; 85025; 99024

== ENCOUNTER → 2021-12-15 11:45 | Outpatient (BNVA) | payer MEDICARE, MEDICAID, SELFPAY | PROVIDERS: PCP Family Medicine; Visit Provider Surgery | DX: Z09 Encounter for follow-up examination after completed treatment for conditions other than malignant neoplasm (principal); D64.9 Anemia, unspecified | CPT/HCPCS: 99213 ==

== ENCOUNTER 2021-12-31 10:03 | Outpatient (CLI) | payer MEDICARE, MEDICAID, SELFPAY ==
[2021-12-31 10:29] LABS: Basophils % 1.2 %; Eosinophils # 0.1 10^3/uL (0.0-0.8); Eosinophils % 2.8 %; Hematocrit 31.3 % (37.0-47.0); Hemoglobin 9.5 g/dL (11.5-15.3); Lymphocytes # 0.7 10^3/uL (0.8-4.8); Mean Corpuscular HGB Conc 30.4 g/dL (30.0-36.0); Mean Corpuscular Volume 85.5 fl (81-99); Mean Platelet Volume 9.4 fL (7.4-10.4); Monocytes # 0.3 10^3/uL (0.2-0.9); Monocytes % 9.9 %; Neutrophils # 2.04 10^3/uL (1.8-7.7); Neutrophils % 63.2 %; Nucleated Red Blood Cells % 0 %; Platelet Count 189 10^3/cmm (130-400); Red Blood Count 3.66 10^6/uL (4.1-5.3); Red Cell Distribution Width 17.2 % (12.1-15.1); White Blood Count 3.2 10^3/uL (4.0-10.0)
== END 2021-12-31 10:04 | disposition home or self-care (01) ==
PROVIDERS: PCP Family Medicine; Visit Provider Internal Medicine
DX: D64.9 Anemia, unspecified (principal)
CPT/HCPCS: 85025

== ENCOUNTER 2022-01-09 08:14 | Emergency (ER) | payer MEDICARE, MEDICAID, SELFPAY ==
[2022-01-09] VITALS (74 sets, daily range): BP systolic 93–140; BP diastolic 46–68; PULSE 67–94; RESP 14–27; TEMP 36.9; O2SAT 92–99
--- NOTE | 2022-01-09 08:16 | XRR_ITS ---
PROCEDURE INFORMATION: Exam: XR Right Hip Exam date and time: 01/09/2022 9:06 AM Age: 76 years old Clinical indication: Hip pain; Right hip; Prior surgery; Surgery type: RT leg TECHNIQUE: Imaging protocol: Radiologic exam of the Right hip. Views: 2 or 3 views hip with pelvis when performed. COMPARISON: CR (PELVIS, ) 11/28/2021 11:31 AM FINDINGS: Bones/joints: Extensive fixation is seen throughout the hip. The femoral head is poorly visualized possibly not even present. There is a fracture noted involving the distal femur appears acute just lateral to the distal edge of the fixation teagan. The femur peers aligned with the hip joint. Soft tissues: Vascular calcifications. XR/XR hip RT 2-3V wo/w pel* [id number] IMPRESSION: 1. Femoral head is not seen perhaps is eroded or necrosis. 2. Extensive fixation with an acute appearing distal femoral fracture.
[2022-01-09 09:12] LABS: Add Urine Microscopic? YES; Bilirubin Urine Neg (Negative); Blood Urine 3+ (Negative); Glucose Urine UA Norm (Normal); Ketones Urine Negative (Negative); Leukocyte Esterase Urine 2+ (Negative); Nitrate Urine Negative (Negative); Protein Urine 1+ (Negative); Urine Appearance SL Hazy (CLEAR); Urine Color Yellow (Yellow); Urobilinogen Urine Norm (Negative); pH Urine 6 (5-7)
[2022-01-09 09:15] LABS: Bacteria Urine 4+ /hpf; RBC Urine 40-50 /hpf (0-2); Squamous Epithelial Cell Urine 0-4 /hpf (0-5); WBC Urine TOO NUMEROUS TO CNT /hpf (0-5)
[2022-01-09 09:16] LABS: Add Urine Culture? Yes
--- NOTE | 2022-01-09 09:31 | ED_ITS ---
HPI - Fall General: Chief Complaint: Fall Stated Complaint: R hip pain Time Seen by Provider: 01/09/22 08:16 History of Present Illness: 76-year-old female presenting today with right hip pain. Patient notes onset of pain over the last 24 hours. States she did physical therapy 48 hours ago. Was able to walk on the hip. She notes that she felt a pop less than 24 hours ago. And had significant pain in her right hip this morning when trying to walk. Does not currently take pain medicines. She denies nausea or vomiting. She denies diarrhea. Patient is hard of hearing. Review of Systems General: Reports: 10 or more systems reviewed and unremarkable except in HPI and below PFSH ED PFSH: Medical History Abdominal ascites Abdominal pain Abnormal colonoscopy Anemia AVM (arteriovenous malformation) AVM (arteriovenous malformation) of colon with hemorrhage C. difficile colitis Cerebral aneurysm Closed fracture of right distal femur Diverticulosis Fluid overload GI bleed Esophageal variceal banding on 2 occasions in the past, EGD colonoscopy October 2015 upper endoscopy showed esophageal varices with no bleeding or stigmata of bleeding. Colonoscopy showed multiple AVMs in the ascending and proximal transverse colon which were cauterized. Extensive diverticulosis with internal and external hemorrhoids were noted. 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 (LLOYD) LLOYD (nonalcoholic steatohepatitis) Portal hypertension EGD esophageal banding on 03/25/16 she has been transfused multiple times Type 2 diabetes mellitus Surgical History S/P endoscopy Family History Other Family history non-contributory Social History Smoking and tobacco status: never smoked Alcohol intake: never Housing: House Physical Exam Const: COMMON NORMALS: no acute distress, patient oriented x3 and alert GENERAL APPEARANCE: cooperative ORIENTATION/CONSCIOUSNESS: Yes awake, Yes oriented to person, Yes oriented to place and Yes oriented to time HENMT: COMMON NORMALS: normocephalic, atraumatic, external ears normal, Normal external nose present and moist oral mucous membranes HEAD & SCALP: normal to inspection, normocephalic and atraumatic NOSE: Normal external nose present GENERAL EAR: hearing grossly impaired EXTERNAL EAR: Yes external ears normal Eye: COMMON NORMALS: Equal, round and reactive pupils present, EOMs intact bilaterally, conjunctivae normal and no scleral icterus GENERAL EYE: appearance normal, both eyes and all related structures EYELID: eyelids normal CONJUNCTIVA: Yes conjunctivae normal SCLERA: sclerae normal PUPIL: Yes Equal, round and reactive pupils present Neck/C-Spine: COMMON NORMALS: full ROM, supple and no JVD GENERAL: Yes normal visual inspection Lymph: LYMPHATIC: no lymphadenopathy noted and no lymphedema noted Chest: COMMONS NORMALS: normal inspection of the chest Resp: COMMON NORMALS: normal respiratory effort, No retractions and No use of accessory muscles Cardio: COMMON NORMALS: no JVD, regular rate and regular rhythm RATE: regular rate RHYTHM: regular rhythm GI: COMMON NORMALS: Normal to inspection, nondistended, normoactive bowel sounds present : COMMON NORMALS: Yes no CVA tenderness BLADDER/KIDNEY EXAM: Yes no CVA tenderness Back/Pelvis: COMMON NORMALS: no CVA tenderness and thoracic and lumbar spine normal to inspection Extremity: COMMON NORMALS: normal to inspection, full ROM and capillary refill normal GENERAL: Yes normal exam except as noted Neuro: COMMON NORMALS: patient oriented x3, CN's II-XII intact bilaterally, moves all extremities, no focal motor deficits, no sensory deficits noted and gait normal SENSORIUM/ORIENTATION: Yes alert, Yes oriented to person, Yes oriented to place and Yes oriented to time Psych: COMMON NORMALS: mental status grossly normal, Normal thought process present, cooperative and normal affect THOUGHT PROCESS: Normal thought process present Skin: COMMON NORMALS: no rashes or lesions noted and no wounds GENERAL SKIN EXAM: no rashes or lesions noted Course Vital Signs: Vital signs: Vital Signs Temperature 98.4 F 01/09/22 08:30 Pulse Rate 71 01/09/22 09:30 Respiratory Rate 25 H 01/09/22 09:30 Blood Pressure 95/50 01/09/22 09:30 Pulse Oximetry 95 01/09/22 09:30 Oxygen Delivery Me thod 01/09/22 08:30 MDM - Fall Medical Decision Making 76-year-old female presenting today with right hip pain. X-ray with evidence of complete absence of the right femoral head. This likely means patient is not ambulatory. Urine demonstrating significant urinary tract infection. Some question of dementia as far as patient's time course of this she is walking. No recent notes demonstrating patient walking. Usually in wheelchair. We will start patient on cefdinir. Patient given a dose of ceftriaxone here. Patient was given strict return precautions and recommended routine outpatient follow- up. Lab Data Radiology Impressions Hip/Pelvis X-Ray 01/09/22 08:16 IMPRESSION: 1. Femoral head is not seen perhaps is eroded or necrosis. 2. Extensive fixation with an acute appearing distal femoral fracture. Laboratory Results Urine Color Yellow (Yellow) 01/09/22 08:50 Urine Appearance Sl hazy (CLEAR) A 01/09/22 08:50 Urine pH 6 (5-7) 01/09/22 08:50 Ur Specific [place] 1.010 (1.005-1.030) 01/09/22 08:50 Urine Protein 1+ (Negative) H 01/09/22 08:50 Urine Glucose (UA) Norm (Normal) 01/09/22 08:50 Urine Ketones Negative (Negative) 01/09/22 08:50 Urine Blood 3+ (Negative) H 01/09/22 08:50 Urine Nitrate Negative (Negative) 01/09/22 08:50 Urine Bilirubin Neg (Negative) 01/09/22 08:50 Urine Urobilinogen Norm mg/dL (Negative) 01/09/22 08:50 Ur Leukocyte Esterase 2+ (Negative) H 01/09/22 08:50 Urine RBC 40-50 /hpf (0-2) H 01/09/22 08:50 Urine WBC Too numerous to cnt /hpf (0-5) H 01/09/22 08:50 Ur Squamous Epith Cells 0-4 /hpf (0-5) H 01/09/22 08:50 Amorphous Sediment Not Reportable 01/09/22 08:50 Urine Bacteria 4+ /hpf (NONE) H 01/09/22 08:50 Discharge Plan Discharge Patient Disposition: Home Clinical Impression: Acute UTI Condition: Stable Prescriptions: New cefdinir 300 mg capsule 300 mg PO BID 10 Days Qty: 20 0RF No Action ferrous sulfate 325 mg (65 mg iron) Tablet 325 mg PO BID@07,17 insulin lispro [Humalog KwikPen Insulin] 100 unit/mL Insulin Pen See Rx Instructions .ROUTE .COMPLEX Rx Instructions: sliding scale before meals and at bedtime 140-175=2 units 176-200=3 units 201-250=5 units 251-299=7 units 300 plus =9 units polyethylene glycol 3350 17 gram/dose Powder 17 g PO DAILY@07 mirtazapine 7.5 mg tablet 7.5 mg PO BEDTIME@19 melatonin 5 mg Tablet 5 mg PO BEDTIME@19 acetaminophen 500 mg Tablet 1,000 mg PO Q6H PRN (Reason: Pain) magnesium hydroxide [Milk of Magnesia] 400 mg/5 mL Suspension 30 ml PO DAILY PRN (Reason: Constipation) nitroglycerin [Nitrostat] 0.4 mg Tablet, Sublingual 0.4 mg SUBLINGUAL Q5M PRN (Reason: Chest Pain) Rx Instructions: do not exceed 3 doses per episode bumetanide 1 mg Tablet 1 mg PO DAILY Qty: 60 0RF sucralfate 1 gram Tablet 1 g PO QID pantoprazole 40 mg Tablet,Delayed Release (Dr/Ec) 40 mg PO BID Xifaxan 550 mg Tablet 550 mg PO BID Lantus Solostar U-100 Insulin 100 unit/mL (3 mL) insulin pen 20 unit SUBCUT DAILY@08 lactulose 20 gram/30 mL solution 10 g PO DAILY PRN (Reason: Constipation) oxycodone 5 mg tablet 5 mg PO Q6H PRN (Reason: pain) Qty: 28 0RF spironolactone 25 mg tablet 25 mg PO DAILY@07 Qty: 30 0RF ondansetron HCl 8 mg Tablet 8 mg PO Q8H PRN (Reason: Nausea) tramadol 50 mg Tablet 50 mg PO Q6H PRN (Reason: Pain) magnesium oxide [MagOx] 400 mg (241.3 mg magnesium) tablet 400 mg PO BID Qty: 60 0RF Discharge Orders: Discharge ED (Routine); Ordered 01/09/22 Ordered By: Lb Sher Referrals: Che Holt DO [Primary Care Provider] - Patient Instructions: Urinary Tract Infection in Women (DC) Coding Level of Care Code ED 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
== END 2022-01-09 14:35 | disposition home or self-care (01) ==
PROVIDERS: Emergency Provider Emergency Medicine; PCP Family Medicine
DX: N39.0 Urinary tract infection, site not specified (principal); Z79.4 Long term (current) use of insulin; E11.9 Type 2 diabetes mellitus without complications
CPT/HCPCS: 73502; 81001; 87077; 87086; 87186; 99285

== ENCOUNTER 2022-01-17 05:13 | Outpatient (CLI) | payer MEDICARE, MEDICAID, SELFPAY ==
[2022-01-17 05:33] LABS: Basophils % 0.8 %; Eosinophils # 0.1 10^3/uL (0.0-0.8); Eosinophils % 3.3 %; Hematocrit 21.7 % (37.0-47.0); Lymphocytes # 0.5 10^3/uL (0.8-4.8); Lymphocytes % 20.4 %; Mean Corpuscular HGB Conc 32.3 g/dL (30.0-36.0); Mean Corpuscular Volume 80.7 fl (81-99); Mean Platelet Volume 9.1 fL (7.4-10.4); Monocytes # 0.2 10^3/uL (0.2-0.9); Neutrophils # 1.53 10^3/uL (1.8-7.7); Neutrophils % 63.8 %; Nucleated Red Blood Cells % 0 %; Platelet Count 171 10^3/cmm (130-400); Red Blood Count 2.69 10^6/uL (4.1-5.3); Red Cell Distribution Width 16.3 % (12.1-15.1); White Blood Count 2.4 10^3/uL (4.0-10.0)
== END 2022-01-17 05:14 | disposition home or self-care (01) ==
PROVIDERS: PCP Family Medicine; Visit Provider Family Medicine
DX: D64.9 Anemia, unspecified (principal)
CPT/HCPCS: 85025

== ENCOUNTER 2022-01-18 08:25 | Outpatient (RCR) | payer MEDICARE, MEDICAID, SELFPAY ==
[2022-01-18] VITALS (9 sets, daily range): BP systolic 104–139; BP diastolic 39–54; PULSE 60–66; RESP 18; TEMP 36.3–37.1; O2SAT 97–98
[2022-01-18 09:13] LABS: Hematocrit 25.7 % (37.0-47.0); Hemoglobin 7.8 g/dL (11.5-15.3)
[2022-01-18] MEDS: sodium chloride 0.9% (100 ml) 100 ML 10 ML ×2 (10:15→12:30)
== END 2022-01-24 23:59 | disposition home or self-care (01) ==
LOC: GILAB 08:25
PROVIDERS: PCP Family Medicine; Visit Provider Nurse Practitioner Family
DX: D64.9 Anemia, unspecified (principal)
CPT/HCPCS: 36415; 36430; 85014; 85018; 86850; 86870; 86900; 86905; 86920; P9016

== ENCOUNTER → 2022-01-24 09:51 | Outpatient (BNVA) | payer MEDICARE, MEDICAID, SELFPAY | PROVIDERS: PCP Family Medicine; Visit Provider Student in an Organized Health Care Education/Training Program | DX: S72.401D Unspecified fracture of lower end of right femur, subsequent encounter for closed fracture with routine healing (principal); X58.XXXD Exposure to other specified factors, subsequent encounter | CPT/HCPCS: 73552; 99024 ==

== ENCOUNTER 2022-01-26 06:43 | Outpatient (CLI) | payer MEDICARE, MEDICAID, SELFPAY ==
[2022-01-26 07:11] LABS: Basophils # 0.1 10^3/uL (0.0-0.1); Eosinophils # 0.1 10^3/uL (0.0-0.8); Hematocrit 30.8 % (37.0-47.0); Hemoglobin 9.8 g/dL (11.5-15.3); Lymphocytes # 0.6 10^3/uL (0.8-4.8); Lymphocytes % 25.2 %; Mean Corpuscular HGB Conc 31.8 g/dL (30.0-36.0); Mean Corpuscular Hemoglobin 26.9 pg (28.0-34.0); Mean Corpuscular Volume 84.6 fl (81-99); Mean Platelet Volume 9.1 fL (7.4-10.4); Monocytes # 0.3 10^3/uL (0.2-0.9); Monocytes % 11.6 %; Neutrophils # 1.47 10^3/uL (1.8-7.7); Neutrophils % 58.8 %; Nucleated Red Blood Cells % 0 %; Platelet Count 135 10^3/cmm (130-400); Red Blood Count 3.64 10^6/uL (4.1-5.3); Red Cell Distribution Width 17.3 % (12.1-15.1); White Blood Count 2.5 10^3/uL (4.0-10.0)
== END 2022-01-26 06:44 | disposition home or self-care (01) ==
LOC: LAB 06:44
PROVIDERS: PCP Family Medicine; Visit Provider Nurse Practitioner Family
DX: I10 Essential (primary) hypertension (principal)
CPT/HCPCS: 85025

== ENCOUNTER 2022-02-07 14:45 | Outpatient (CLI) | payer MEDICARE, MEDICAID, SELFPAY ==
[2022-02-07 15:16] LABS: Basophils % 0.5 %; Eosinophils % 0.1 %; Hematocrit 32.2 % (37.0-47.0); Hemoglobin 10.3 g/dL (11.5-15.3); Lymphocytes # 0.7 10^3/uL (0.8-4.8); Mean Corpuscular Hemoglobin 26.8 pg (28.0-34.0); Mean Corpuscular Volume 83.6 fl (81-99); Mean Platelet Volume 8.9 fL (7.4-10.4); Monocytes # 0.7 10^3/uL (0.2-0.9); Monocytes % 9.5 %; Neutrophils # 5.83 10^3/uL (1.8-7.7); Neutrophils % 79.2 %; Nucleated Red Blood Cells % 0 %; Platelet Count 137 10^3/cmm (130-400); Red Blood Count 3.85 10^6/uL (4.1-5.3); Red Cell Distribution Width 17.2 % (12.1-15.1); White Blood Count 7.4 10^3/uL (4.0-10.0)
[2022-02-07 17:27] LABS: Ammonia 23 umol/L (11-51)
== END 2022-02-07 14:46 | disposition home or self-care (01) ==
PROVIDERS: PCP Family Medicine; Visit Provider Family Medicine
DX: R41.0 Disorientation, unspecified (principal); D50.0 Iron deficiency anemia secondary to blood loss (chronic)
CPT/HCPCS: 36415; 82140; 85025; 86850; 86900

== ENCOUNTER 2022-02-15 06:07 | Emergency (ER) | payer MEDICARE, MEDICAID, SELFPAY ==
[2022-02-15 06:09] VITALS: BP 118/58; PULSE 77; RESP 16; TEMP 36.6; O2SAT 99; BMI 23.0
--- NOTE | 2022-02-15 06:18 | XRR_ITS ---
PROCEDURE INFORMATION: Exam: XR Right Wrist Exam date and time: 02/15/2022 7:32 AM Age: 76 years old Clinical indication: Injury or trauma; Fall; Blunt trauma (contusions or hematomas); Wrist; Right; Injury date: 02/14/22; Additional info: Pain after fall TECHNIQUE: Imaging protocol: Radiologic exam of the Right wrist. Views: 3 or more views. COMPARISON: No relevant prior studies available. FINDINGS: Bones/joints: Acute with radial and dorsal displacement intra-articular fracture of the distal right radius with prominent radial and dorsal displacement of a major distal fracture fragment. Nondisplaced fracture of the distal ulna. Degenerative change. Soft tissues: Soft tissue swelling. Vasculature: Vascular calcification. XR/XR wrist RT min 3V* 34094 IMPRESSION: 1. Acute with radial and dorsal displacement intra-articular fracture of the distal right radius with prominent radial and dorsal displacement of a major distal fracture fragment. 2. Nondisplaced fracture of the distal ulna.
[2022-02-15 06:21] VITALS: BP 107/54; PULSE 78; RESP 16; O2SAT 96
--- NOTE | 2022-02-15 06:29 | ED_ITS ---
HPI - Fall General: Chief Complaint: Fall Stated Complaint: fall, possible wrist fracture Time Seen by Provider: 02/15/22 06:18 Source: patient Mode of arrival: EMS History of Present Illness: 76-year-old female presents via EMS after a fall at home. She fell last night around 11 had only some difficulty getting up or using the phone and her was there with her but there was some however phone became broken she was unable to get up this morning until her son came to see her and he called 911. She has had multiple falls recently also had a fall resulting in a hip fracture. She has an obvious deformity of her right wrist she also has a history of anemia has been being watched as an outpatient and appears to be iron deficient they have not noted any obvious signs of blood loss. According to old records she has an AVM in her colon, which is thought to be the source of blood loss that she has not had any colon resection in the past. She does not notice any recent hemoptysis or hematemesis. He has a history of liver cirrhosis from [place] and has esophageal varices she is denies any recent hematemesis or coffee-ground emesis. MD complaint: fall Onset (ago): hour(s) Fall from: standing Fall witnessed: no Place fall occurred: home Loss of consciousness: None Prolonged down time: yes Context: tripped/slipped Location of injury - extremities: Right: forearm (Right wrist) Severity: moderate Quality: sharp Associated symptoms-after fall: Denies abdominal pain, chest pain, confusion, difficulty walking, headache(s), hematuria, lightheadedness, neck pain, numbness, short of breath, vertigo or weakness Review of Systems Const: Denies: fever(s), chills, body aches, change in appetite, fatigue or malaise ENMT: Denies: throat pain, ear or mastoid pain, nasal discharge or nasal congestion Card: Denies: chest pain or lightheadedness Resp: Denies: dyspnea, productive cough or non-productive cough GI: Denies: abdominal pain, nausea or vomiting : Denies: flank pain, dysuria, urinary frequency, urinary urgency or hematuria Musc: Denies: neck pain Skin/Breast: Denies: rash or pruritus Neuro: Denies: headache(s), difficulty walking, vertigo or confusion PFS ED PFSH: Medical History Abdominal ascites Abdominal pain Abnormal colonoscopy Anemia AVM (arteriovenous malformation) AVM (arteriovenous malformation) of colon with hemorrhage C. difficile colitis Cerebral aneurysm Closed fracture of right distal femur Diverticulosis Fluid overload GI bleed Esophageal variceal banding on 2 occasions in the past, EGD colonoscopy October 2015 upper endoscopy showed esophageal varices with no bleeding or stigmata of bleeding. Colonoscopy showed multiple AVMs in the ascending and proximal transverse colon which were cauterized. Extensive diverticulosis with internal and external hemorrhoids were noted. 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 (MENARD) MENARD (nonalcoholic steatohepatitis) Portal hypertension EGD esophageal banding on 03/25/16 she has been transfused multiple times Type 2 diabetes mellitus Surgical History S/P endoscopy Family History Other Family history non-contributory Social History Smoking and tobacco status: never smoked Alcohol intake: never Housing: House Physical Exam Const: GENERAL APPEARANCE: cooperative and comfortable ORIENTATION/CONSCIOUSNESS: Yes awake, Yes oriented to person, Yes oriented to place and Yes oriented to time HENMT: COMMON NORMALS: normocephalic, atraumatic, hearing grossly normal bilaterally, external ears normal, EAC's normal, TM's normal bilaterally and Normal nasal mucous membranes and turbinates present HEAD & SCALP: normocephalic and atraumatic NOSE: Normal nasal mucous membranes and turbinates present EXTERNAL EAR: Yes external ears normal EXTERNAL AUDITORY CANAL: EAC's normal TYMPANIC MEMBRANE: TM's normal bilaterally Eye: COMMON NORMALS: Equal, round and reactive pupils present, EOMs intact bilaterally, conjunctivae normal and no scleral icterus CONJUNCTIVA: Yes conjunctivae normal PUPIL: Yes Equal, round and reactive pupils present Neck/C-Spine: COMMON NORMALS: full ROM, no lymphadenopathy, supple and no JVD Lymph: LYMPHATIC: no lymphedema noted Resp: COMMON NORMALS: normal respiratory effort, No retractions, No use of accessory muscles and clear to auscultation bilaterally AUSCULTATION: clear to auscultation bilaterally Cardio: COMMON NORMALS: no JVD, regular rate, regular rhythm and No murmurs present (Cardio) RATE: regular rate RHYTHM: regular rhythm GI: COMMON NORMALS: Soft to palpation and No hepatosplenomegaly present AUS CULTATION: Yes normoactive bowel sounds PALPATION: Yes Soft to palpation, No Tenderness to palpation present (GI), No Guarding due to palpation present (GI) and Yes No hepatosplenomegaly present Extremity: COMMON NORMALS: capillary refill normal, no clubbing, cyanosis or edema, no calf tenderness and no pedal edema OTHER: Deformity of the right wrist. Neurovascularly intact in the right wrist radial and ulnar pulses normal. Capillary refill distally normal Neuro: SENSORIUM/ORIENTATION: Yes oriented to person, Yes oriented to place and Yes oriented to time Skin: COMMON NORMALS: no rashes or lesions noted GENERAL SKIN EXAM: no rashes or lesions noted Course Vital Signs: Vital signs: Vital Signs Temperature 98 F 02/15/22 06:09 Pulse Rate 78 02/15/22 06:21 Respiratory Rate 16 02/15/22 06:45 Blood Pressure 107/54 02/15/22 06:21 Pulse Oximetry 97 02/15/22 06:45 Oxygen Delivery Me thod 02/15/22 06:21 MDM - Fall Medical Decision Making Closed right wrist fracture which was splinted and put in a sling. We will set the patient follow-up with Ortho. She also has a mild anemia. This is been an ongoing problem for she has not noticed any blood loss anywhere recommend that she follow-up with her primary care doctor within a week for repeat hemoglobin. She is not on any anticoagulants. If she has any worsening problems she can return to the emergency room to be reevaluated. Medical Records I reviewed the patient's medical records. Lab Data I reviewed the patient's lab results. 02/15/22 06:45 02/15/22 06:45 Laboratory Results WBC 4.3 10^3/uL (4.0-10.0) 02/15/22 06:45 RBC 3.11 10^6/uL (4.1-5.3) L 02/15/22 06:45 Hgb 8.2 g/dL (11.5-15.3) L 02/15/22 06:45 Hct 26.1 % (37.0-47.0) L 02/15/22 06:45 MCV 83.9 fl (81-99) 02/15/22 06:45 MCH 26.4 pg (28.0-34.0) L 02/15/22 06:45 MCHC 31.4 g/dL (30.0-36.0) 02/15/22 06:45 RDW 16.3 % (12.1-15.1) H 02/15/22 06:45 Plt Count 188 10^3/cmm (130-400) 02/15/22 06:45 MPV 8.9 fL (7.4-10.4) 02/15/22 06:45 Neut % (Auto) 80.8 % 02/15/22 06:45 Lymph % (Auto) 7.3 % 02/15/22 06:45 [place] % (Auto) 10.5 % 02/15/22 06:45 Eos % (Auto) 0.2 % 02/15/22 06:45 Baso % (Auto) 0.7 % 02/15/22 06:45 Neut # (Auto) 3.45 10^3/uL (1.8-7.7) 02/15/22 06:45 Lymph # (Auto) 0.3 10^3/uL (0.8-4.8) L 02/15/22 06:45 [place] # (Auto) 0.5 10^3/uL (0.2-0.9) 02/15/22 06:45 Eos # (Auto) 0.0 10^3/uL (0.0-0.8) 02/15/22 06:45 Baso # (Auto) 0.0 10^3/uL (0.0-0.1) 02/15/22 06:45 Nucleated RBC % (auto) 0 % 02/15/22 06:45 Nucleated RBCs # 0.0 /100WBC 02/15/22 06:45 Sodium 131 mmol/L (136-145) L 02/15/22 06:45 Potassium 4.6 mmol/L (3.5-5.1) 02/15/22 06:45 Chloride 99 mmol/L (98-107) 02/15/22 06:45 Carbon Dioxide 23 mmol/L (22-29) 02/15/22 06:45 Anion Gap 13.6 (5-19) 02/15/22 06:45 BUN 24 mg/dL (8-23) H 02/15/22 06:45 Creatinine 0.7 mg/dL (0.5-0.9) 02/15/22 06:45 GFR Calculation Not Reportable 02/15/22 06:45 Glucose 253 mg/dL (65-115) H 02/15/22 06:45 Calculated Osmolality 285 mOsm/kg (285-295) 02/15/22 06:45 Calcium 8.9 mg/dL (8.5-10.5) 02/15/22 06:45 Creatine Kinase 35 U/L (26-192) 02/15/22 06:45 Discharge Plan Discharge Patient Disposition: Home Clinical Impression: Closed fracture of right wrist, Anemia Condition: Stable Prescriptions: No Action ferrous sulfate 325 mg (65 mg iron) Tablet 325 mg PO BID@07,17 insulin lispro [Humalog KwikPen Insulin] 100 unit/mL Insulin Pen See Rx Instructions .ROUTE .COMPLEX Rx Instructions: sliding scale before meals and at bedtime 140-175=2 units 176-200=3 units 201-250=5 units 251-299=7 units 300 plus =9 units polyethylene glycol 3350 17 gram/dose Powder 17 g PO DAILY@07 mirtazapine 7.5 mg tablet 7.5 mg PO BEDTIME@19 melatonin 5 mg Tablet 5 mg PO BEDTIME@19 acetaminophen 500 mg Tablet 1,000 mg PO Q6H PRN (Reason: Pain) magnesium hydroxide [Milk of Magnesia] 400 mg/5 mL Suspension 30 ml PO DAILY PRN (Reason: Constipation) nitroglycerin [Nitrostat] 0.4 mg Tablet, Sublingual 0.4 mg SUBLINGUAL Q5M PRN (Reason: Chest Pain) Rx Instructions: do not exceed 3 doses per episode bumetanide 1 mg Tablet 1 mg PO DAILY Qty: 60 0RF sucralfate 1 gram Tablet 1 g PO QID pantoprazole 40 mg Tablet,Delayed Release (Dr/Ec) 40 mg PO BID Xifaxan 550 mg Tablet 550 mg PO BID insulin glargine [Lantus Solostar U-100 Insulin] 100 unit/mL (3 mL) insulin pen 20 unit SUBCUT DAILY@08 lactulose 20 gram/30 mL solution 10 g PO DAILY PRN (Reason: Constipation) oxycodone 5 mg tablet 5 mg PO Q6H PRN (Reason: pain) Qty: 28 0RF spironolactone 25 mg tablet 25 mg PO DAILY@07 Qty: 30 0RF ondansetron HCl 8 mg Tablet 8 mg PO Q8H PRN (Reason: Nausea) tramadol 50 mg Tablet 50 mg PO Q6H PRN (Reason: Pain) magnesium oxide [MagOx] 400 mg (241.3 mg magnesium) tablet 400 mg PO BID Qty: 60 0RF Discharge Orders: Discharge ED (Routine); Ordered 02/15/22 Ordered By: Ramone Cortez Referrals: Che Holt DO [Primary Care Provider] - Discharge Diet: Usual diet Discharge Activity: Resume usual activity Activity Restrictions/Additional Instructions: You are seen today after a fall. You have a right wrist fracture. Recommend you leave the splint in place. Case management make arrangements for you to be seen in the orthopedic clinic for definitive fracture care. Use the oxycodone or tramadol previously prescribed to you for pain control. Also recommend use the sling in the right arm. You were also noted to have some mild anemia. You do not need to be transfused at this point but this should be followed up closely with your primary care doctor. Coding Level of Care Code ED Vibrating Screen Operator for Erika Camacho Exam Comprehensive
[2022-02-15 06:45] VITALS: RESP 16; O2SAT 97
[2022-02-15] MEDS: morphine 4 mg/mL SDV 1 mL 2 MG IVP (06:45)
--- NOTE | 2022-02-15 06:46 | ECG_ITS ---
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 Measurements Intervals [place] Rate: 73 P: 52 [place]: 160 QRS: -29 QRSD: 104 T: 49 QT: 399 QTc: 441 Interpretive Statements SINUS RHYTHM POSSIBLE ANTERIOR MYOCARDIAL INFARCTION , OF INDETERMINATE AGE [30 ms Q WAVE IN V3/V4, OR R < 0.2 mV IN V4] Compared to ECG 09/11/2021 20:36:46 T-wave abnormality no longer present Possible ischemia no longer present Myocardial infarct finding still present Electronically Signed On 02-15-2022 20:35:14 [facility] by Sami Angel M.D. [id number]
[2022-02-15 07:04] LABS: Basophils % 0.7 %; Eosinophils % 0.2 %; Hematocrit 26.1 % (37.0-47.0); Hemoglobin 8.2 g/dL (11.5-15.3); Lymphocytes # 0.3 10^3/uL (0.8-4.8); Lymphocytes % 7.3 %; Mean Corpuscular HGB Conc 31.4 g/dL (30.0-36.0); Mean Corpuscular Hemoglobin 26.4 pg (28.0-34.0); Mean Corpuscular Volume 83.9 fl (81-99); Mean Platelet Volume 8.9 fL (7.4-10.4); Monocytes # 0.5 10^3/uL (0.2-0.9); Monocytes % 10.5 %; Neutrophils # 3.45 10^3/uL (1.8-7.7); Neutrophils % 80.8 %; Nucleated Red Blood Cells % 0 %; Platelet Count 188 10^3/cmm (130-400); Red Blood Count 3.11 10^6/uL (4.1-5.3); Red Cell Distribution Width 16.3 % (12.1-15.1); White Blood Count 4.3 10^3/uL (4.0-10.0)
[2022-02-15 07:11] LABS: Anion Gap 13.6 (5-19); Blood Urea Nitrogen 24 mg/dL (8-23); Calcium 8.9 mg/dL (8.5-10.5); Carbon Dioxide 23 mmol/L (22-29); Chloride 99 mmol/L (98-107); Creatine Phosphokinase 35 U/L (26-192); Glucose 253 mg/dL (65-115); Osmolality Calculated 285 mOsm/kg (285-295); Potassium 4.6 mmol/L (3.5-5.1); Sodium 131 mmol/L (136-145)
--- NOTE | 2022-02-15 07:51 | PC.NURSE ---
slint and sling applied, good cap refill and color afterwards.
[2022-02-15 08:42] VITALS: BP 128/70; PULSE 87; RESP 16; O2SAT 98
--- NOTE | 2022-02-15 09:16 | DCPLANNER ---
Addendum entered by Olivia Stubbs 03/10/22 14:22: Patient had a follow up appointment scheduled with ortho for 02.23.[address] Villaseñor at ortho - patient did attend appointment. Original Note: swing manager had message to schedule a follow up appointment for patient with ortho. swing manager sent patients information to the front office staff at ortho. Patients information will be printed and reviewed. Clinic will call patient with appointment information.
== END 2022-02-15 08:59 | disposition home or self-care (01) ==
PROVIDERS: Emergency Provider Family Medicine; PCP Family Medicine
DX: S52.571A Other intraarticular fracture of lower end of right radius, initial encounter for closed fracture (principal); S52.601A Unspecified fracture of lower end of right ulna, initial encounter for closed fracture; W19.XXXA Unspecified fall, initial encounter; Z91.81 History of falling; Y93.01 Activity, walking, marching and hiking; E11.9 Type 2 diabetes mellitus without complications; Z79.4 Long term (current) use of insulin
CPT/HCPCS: 29125; 73110; 80048; 82550; 85025; 93005; 96374; 99283; J2270

== ENCOUNTER 2022-02-21 13:39 | Outpatient (CLI) | payer MEDICARE, MEDICAID, SELFPAY ==
[2022-02-21 14:21] LABS: Alanine Aminotransferase 319 U/L (0-33); Albumin Level 2.8 g/dL (3.5-5.2); Alkaline Phosphatase 341 U/L (35-105); Anion Gap 16.5 (5-19); Aspartate Amino Transferase 75 U/L (0-32); Blood Urea Nitrogen 34 mg/dL (8-23); Calcium 8.4 mg/dL (8.5-10.5); Carbon Dioxide 21 mmol/L (22-29); Chloride 96 mmol/L (98-107); Glucose 250 mg/dL (65-115); Osmolality Calculated 284 mOsm/kg (285-295); Potassium 4.5 mmol/L (3.5-5.1); Sodium 129 mmol/L (136-145); Total Bilirubin 0.8 mg/dL (0.15-1.2); Total Protein 5.8 g/dL (6.6-8.7)
[2022-02-21 14:35] LABS: Hepatitis A Antibody IgM Non-Reactive (Nonreactive); Hepatitis B Core IgM Non-Reactive (Nonreactive); Hepatitis B Surface Antigen Non-Reactive (Nonreactive); Hepatitis C Virus Antibody Non-Reactive (Nonreactive)
== END 2022-02-21 13:40 | disposition home or self-care (01) ==
PROVIDERS: PCP Family Medicine; Visit Provider Nurse Practitioner Family
DX: K75.81 Nonalcoholic steatohepatitis (NASH) (principal)
CPT/HCPCS: 80053; 80074

== ENCOUNTER → 2022-02-23 15:34 | Outpatient (BNVA) | payer MEDICARE, MEDICAID, SELFPAY | PROVIDERS: PCP Family Medicine; Referring Provider Family Medicine; Visit Provider Orthopaedic Surgery | DX: S52.501A Unspecified fracture of the lower end of right radius, initial encounter for closed fracture (principal); W19.XXXA Unspecified fall, initial encounter | CPT/HCPCS: 25600; 99213; A4590 ==

== ENCOUNTER 2022-02-24 11:19 | Day surgery (SDC) | payer MEDICARE, MEDICAID, SELFPAY ==
[2022-02-24] VITALS (9 sets, daily range): BP systolic 110–136; BP diastolic 47–68; PULSE 75–87; RESP 12–18; TEMP 36.6–37.4; O2SAT 95–100
[2022-02-24] MEDS: sodium chloride 0.9% 1,000 ML 30 ML IV (12:25)
[2022-02-24 12:31] LABS: Glucose Point of Care 141 mg/dL (70-110)
--- NOTE | 2022-02-24 12:53 | ANES.PREANE2 ---
Pre-Anesthetic Assessment Height/Weight: Height 1.6 m Weight 59.421 kg Temp Pulse Resp BP Pulse Ox O2 Del Method 99.4 F 84 16 133/57 99 02/24/22 12:13 02/24/22 12:13 02/24/22 12:13 02/24/22 12:13 02/24/22 12:13 02/24/22 12:13 Preop Diagnosis: Fracture right distal radius Operation Date: 02/24/22 13:05 Proposed Procedures p closed reduction with percutaneous pinning vs ORIF right distal radius/ [id number] S52.501A(Right) - Jake Villaseñor MD s ORIF Wrist ORIF Distal Radius(Right) - Jake Villaseñor MD Familial anesthetic complications: none Was Beta Nathan taken within 24 hours: N/A Was Clonidine taken within 24 hours: N/A Last intake: Intake Last Liquid Date 02/23/22 Last Liquid Time 22:00 Last Solid Date 02/23/22 Last Solid Time 22:00 Social No alcohol and No tobacco Exam alert, oriented x 3 and regular rate & rhythm Airway Submandibular: within normal limits Cervical ROM: within normal limits Mallampati: Class II Dentition: false Pulmonary Chronic Obstructive Pulmonary Disease CV/HEM Anemia Hepatic Cirrhosis LLOYD GI Gastroesophageal Reflux Disease Metabolic Diabetes Mellitus Anesthetic Plan ASA status: 3 Anesthesia: General Medications/Allergies Home Medications Medication Instructions Recorded Confirmed Last Taken Type ferrous sulfate 325 mg (65 mg 325 mg PO BID@07,17 06/11/21 02/24/22 02/23/22 History iron) tablet insulin lispro 100 unit/mL See Rx Instructions .Route .COMPLEX 06/11/21 02/24/22 02/23/22 History subcutaneous pen (Humalog KwikPen (U-100) Insulin) mirtazapine 7.5 mg tablet 7.5 mg PO BEDTIME@19 06/11/21 02/24/22 02/23/22 History acetaminophen 500 mg tablet 1,000 mg PO Q6H PRN Pain 06/16/21 02/24/22 02/23/22 History magnesium hydroxide 400 mg/5 mL 30 ml PO DAILY PRN Constipation 06/16/21 02/24/22 Unknown History oral suspension (Milk of Magnesia) ondansetron HCl 8 mg tablet 8 mg PO Q8H PRN Nausea 08/22/21 02/24/22 02/23/22 History tramadol 50 mg tablet 50 mg PO Q6H PRN Pain 08/22/21 02/24/22 02/23/22 History bumetanide 1 mg tablet 1 mg PO DAILY #60 tabs 09/13/21 02/24/22 02/23/22 Rx insulin glargine 100 unit/mL (3 20 unit SUBCUT DAILY@08 11/28/21 02/24/22 02/23/22 History mL) subcutaneous pen (Lantus Solostar U-100 Insulin) pantoprazole 40 mg tablet,delayed 40 mg PO BID 11/28/21 02/24/22 02/23/22 History release rifaximin 550 mg tablet (Xifaxan) 550 mg PO BID 11/28/21 02/24/22 02/23/22 History oxycodone 5 mg tablet 5 mg PO Q6H PRN pain #28 tabs 12/01/21 02/24/22 02/23/22 Rx spironolactone 25 mg tablet 25 mg PO DAILY@07 #30 tabs 12/03/21 02/24/22 02/23/22 Rx Allergies Allergy/AdvReac Type Severity Reaction Status Date / Time aspirin Allergy Intermediate rash Verified 02/23/22 15:55 atropine Allergy Intermediate unknown Verified 02/23/22 15:55 tositumomab iodine-131 Allergy Mild ALGY-Hives Verified 02/23/22 17:38 ciprofloxacin Allergy ALGY-Rash Verified 02/23/22 15:55 hydrocodone Allergy Unknown Verified 02/23/22 15:55 iodine Allergy ALGY-Hives Verified 02/23/22 15:55 meperidine [From Demerol] Allergy ADR-Nausea Verified 02/23/22 15:55 Sulfa (Sulfonamide Allergy ALGY-Rash Verified 02/23/22 15:55 Antibiotics) Current Medications Generic Name Dose Route Start Last Admin Trade Name Freq PRN Reason Stop Dose Admin Sodium Chloride 1,000 mls @ 30 mls/hr 02/24/22 12:00 02/24/22 12:25 Sodium Chloride 0.9% IV 30 mls/hr .Q24H RAMYA Administration PFSH Anesthesia Medical History (Updated 02/23/22 @ 16:01 by Rodríguez Kiser LPN) Abdominal ascites Abdominal pain Abnormal colonoscopy Anemia AVM (arteriovenous malformation) AVM (arteriovenous malformation) of colon with hemorrhage C. difficile colitis Cerebral aneurysm Closed fracture of right distal femur Diverticulosis Fluid overload GI bleed Esophageal variceal banding on 2 occasions in the past, EGD colonoscopy October 2015 upper endoscopy showed esophageal varices with no bleeding or stigmata of bleeding. Colonoscopy showed multiple AVMs in the ascending and proximal transverse colon which were cauterized. Extensive diverticulosis with internal and external hemorrhoids were noted. 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
--- NOTE | 2022-02-24 13:34 | W.PM.OPSUD ---
Surgery/Procedure H&P Update DATE OF PROCEDURE: February 24, 2022 DATE H&P PERFORMED: 02/23/22 H&P UPDATE INFORMATION: I have reviewed H&P completed within last 30 days PREOP DIAGNOSIS: Fracture right distal radius PLANNED PROCEDURE: Operation Date: 02/24/22 13:05 Proposed Procedures p closed reduction with percutaneous pinning vs ORIF right distal radius/ [id number] S52.501A(Right) - Jake Villaseñor MD s ORIF Wrist ORIF Distal Radius(Right) - Jake Villaseñor MD
[2022-02-24] MEDS: ceFAZolin 2,000 MG in sodium chloride 0.9% (plus) 50 ML 100 MG IV (13:37)
--- NOTE | 2022-02-24 14:11 | PM.OP ---
Operative Report Date of procedure: February 24, 2022 Pre-op diagnosis: Preop Diagnosis Fracture right distal radius Post-op diagnosis: same Procedure done: Closed reduction right distal radius Surgeon: Jake Villaseñor Anesthesia: General Estimated blood loss (mL): 0 Tourniquet time (min): 0 Findings: The patient extra-articular fracture of the right distal radius with 100% dorsal displacement and associated ulnar styloid fracture. There is minimal comminution and the fracture was stable after closed reduction Condition: stable Brief History: The patient is a 76-year-old female who fell on 02/15/2022 with resulting displaced distal radius fracture. She was seen in my clinic yesterday. Decision was made to proceed with a closed reduction to minimize risk of skin compromise enhance chances of healing and there is a very displaced fracture. Procedure: Martha was taken to the operating room and given a general anesthesia. A timeout was performed. A closed reduction was accomplished by applying longitudinal traction across the wrist and a volar directed force across the distal radial fragment. Postreduction radiographs showed near anatomic alignment of the distal radius and ulnar styloid fragment. A short arm cast was applied. The patient was extubated taken recovery room in stable condition.
--- NOTE | 2022-02-24 14:14 | XR_ITS ---
WS: [id number] XR wrist RT 2V [id number] REASON FOR EXAM: OR PICS FINDINGS: Intraoperative manipulation of the right wrist with reduction of the displaced distal transverse extr a-articular radial fracture fragment producing anatomic alignment at the wrist joint. Fracture fragme nts in good position and alignment. Ulnar styloid fracture remains without significant displacement. XR/XR wrist RT 2V [id number] IMPRESSION: Reduction of right wrist fracture as above.
--- NOTE | 2022-02-24 14:15 | P.PCN_ITS ---
PACU note Narrative: VSS, Good respiratory effort, report to MOVIE OPERATOR Exam: awake
--- NOTE | 2022-02-24 14:15 | PM.PACU ---
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
--- NOTE | 2022-02-24 15:51 | ANE.PACU2 ---
Inpatient post-anesthesia follow up: Airway intact: Yes Vital signs: Temperature 97.9 F Pulse Rate 82 Respiratory Rate 18 Blood Pressure 136/68 Pulse Oximetry 100 Oxygen Delivery Me thod Room Air Oxygen Flow Rate Fraction of Inspir ed Oxygen Hydration adequate: Yes Nausea and vomiting: No Pain level: 1 Mental status: Baseline
== END 2022-02-24 15:15 | disposition home or self-care (01) ==
PROVIDERS: PCP Family Medicine; Visit Provider Orthopaedic Surgery
PROC: (CPT 25605; principal; 2022-02-24 12:55)
DX: S52.501A Unspecified fracture of the lower end of right radius, initial encounter for closed fracture (principal); X58.XXXA Exposure to other specified factors, initial encounter; J44.9 Chronic obstructive pulmonary disease, unspecified; K21.9 Gastro-esophageal reflux disease without esophagitis; E11.9 Type 2 diabetes mellitus without complications; Z79.4 Long term (current) use of insulin
CPT/HCPCS: 25605; 36416; 73100; 76000; 82962; J0690; J1100; J2250; J2405; J2704; J3010; J7030

== ENCOUNTER 2022-03-01 14:06 | Outpatient (CLI) | payer MEDICARE, MEDICAID, SELFPAY ==
[2022-03-01 14:18] LABS: Basophils % 0.6 %; Eosinophils # 0.1 10^3/uL (0.0-0.8); Eosinophils % 1.4 %; Hematocrit 25.3 % (37.0-47.0); Hemoglobin 7.8 g/dL (11.5-15.3); Lymphocytes # 0.5 10^3/uL (0.8-4.8); Lymphocytes % 12.9 %; Mean Corpuscular HGB Conc 30.8 g/dL (30.0-36.0); Mean Corpuscular Hemoglobin 26.6 pg (28.0-34.0); Mean Corpuscular Volume 86.3 fl (81-99); Mean Platelet Volume 9.5 fL (7.4-10.4); Monocytes # 0.5 10^3/uL (0.2-0.9); Monocytes % 14.6 %; Neutrophils # 2.44 10^3/uL (1.8-7.7); Neutrophils % 69.9 %; Nucleated Red Blood Cells % 0 %; Platelet Count 107 10^3/cmm (130-400); Red Blood Count 2.93 10^6/uL (4.1-5.3); Red Cell Distribution Width 19.5 % (12.1-15.1); White Blood Count 3.5 10^3/uL (4.0-10.0)
== END 2022-03-01 14:07 | disposition home or self-care (01) ==
PROVIDERS: PCP Family Medicine; Visit Provider Nurse Practitioner Family
DX: D64.9 Anemia, unspecified (principal)
CPT/HCPCS: 85025

== ENCOUNTER 2022-03-07 05:04 | Outpatient (CLI) | payer MEDICARE, MEDICAID, SELFPAY ==
[2022-03-07 06:20] LABS: Basophils % 1.6 %; Eosinophils % 3.1 %; Hematocrit 22.3 % (37.0-47.0); Hemoglobin 6.9 g/dL (11.5-15.3); Lymphocytes # 0.5 10^3/uL (0.8-4.8); Lymphocytes % 35.2 %; Mean Corpuscular HGB Conc 30.9 g/dL (30.0-36.0); Mean Corpuscular Hemoglobin 27.2 pg (28.0-34.0); Mean Corpuscular Volume 87.8 fl (81-99); Mean Platelet Volume 9.7 fL (7.4-10.4); Monocytes # 0.2 10^3/uL (0.2-0.9); Monocytes % 18.8 %; Neutrophils % 40.5 %; Nucleated Red Blood Cells % 0 %; Platelet Count 108 10^3/cmm (130-400); Red Blood Count 2.54 10^6/uL (4.1-5.3); Red Cell Distribution Width 19.3 % (12.1-15.1); White Blood Count 1.3 10^3/uL (4.0-10.0)
[2022-03-07 06:36] LABS: Neutrophils # 0.52 10^3/uL (1.8-7.7)
== END 2022-03-07 05:05 | disposition home or self-care (01) ==
PROVIDERS: PCP Family Medicine; Visit Provider Nurse Practitioner Family
DX: D64.9 Anemia, unspecified (principal); X58.XXXD Exposure to other specified factors, subsequent encounter; S72.491D Other fracture of lower end of right femur, subsequent encounter for closed fracture with routine healing
CPT/HCPCS: 73552; 85025; 99213

== ENCOUNTER 2022-03-14 05:17 | Outpatient (CLI) | payer MEDICARE, MEDICAID, SELFPAY ==
[2022-03-14 05:27] LABS: Basophils % 0.8 %; Eosinophils % 0.5 %; Hematocrit 24.1 % (37.0-47.0); Hemoglobin 7.4 g/dL (11.5-15.3); Lymphocytes # 0.7 10^3/uL (0.8-4.8); Lymphocytes % 19.3 %; Mean Corpuscular HGB Conc 30.7 g/dL (30.0-36.0); Mean Corpuscular Hemoglobin 26.4 pg (28.0-34.0); Mean Corpuscular Volume 86.1 fl (81-99); Mean Platelet Volume 9.1 fL (7.4-10.4); Monocytes # 0.5 10^3/uL (0.2-0.9); Monocytes % 12.4 %; Neutrophils # 2.53 10^3/uL (1.8-7.7); Neutrophils % 66.7 %; Nucleated Red Blood Cells % 0 %; Platelet Count 115 10^3/cmm (130-400); Red Cell Distribution Width 18.6 % (12.1-15.1); White Blood Count 3.8 10^3/uL (4.0-10.0)
== END 2022-03-14 05:18 | disposition home or self-care (01) ==
PROVIDERS: PCP Family Medicine; Visit Provider Nurse Practitioner Family
DX: D64.9 Anemia, unspecified (principal)
CPT/HCPCS: 85014; 85018; 85025

== ENCOUNTER 2022-03-14 18:24 | Inpatient (IN) | payer MEDICARE, MEDICAID, SELFPAY ==
--- NOTE | 2022-03-14 18:29 | CTR_ITS ---
PROCEDURE INFORMATION: Exam: CT Head Without Contrast Exam date and time: 03/14/2022 8:11 PM Age: 76 years old Clinical indication: Altered mental status/memory loss and fever; Confusion or disorientation; Prior surgery; Surgery type: Cochlear implant; Patient HX: From [facility] for fever and confusion; Additional info: AMS TECHNIQUE: Imaging protocol: Computed tomography of the head without contrast. Radiation optimization: All CT scans at this facility use at least one of these dose optimization techniques: automated exposure control; mA and/or kV adjustment per patient size (includes targeted exams where dose is matched to clinical indication); or iterative reconstruction. COMPARISON: CT head wo con* [id number] 11/29/2021 12:42 AM RADIATION DOSE METRICS: Total DLP (mGy-cm): 902.68 FINDINGS: Tubes, catheters and devices: Left-sided cochlear implant is again noted. Brain: Mild brain atrophy is noted. No hemorrhage or evidence of acute infarction. Cerebral ventricles: No ventriculomegaly. Paranasal sinuses: Visualized sinuses are unremarkable. No fluid levels. Mastoid air cells: Visualized mastoid air cells are well aerated. Bones/joints: Right temporal craniotomy is noted. No acute fracture is seen. Soft tissues: Mild soft tissue swelling is present in the scalp at vertex. Vasculature: Advanced diffuse vascular calcification noted. Other findings: An aneurysm clip is again seen near the right anterior clinoid. Extensive artifacts are present from previous surgeries. CT/CT head wo con* [id number] IMPRESSION: 1. No acute intracranial abnormality. 2. Multiple chronic and postop findings, similar to 11/29/2021 exam.
--- NOTE | 2022-03-14 18:29 | XRR_ITS ---
PROCEDURE INFORMATION: Exam: XR Chest Exam date and time: 03/14/2022 6:46 PM Age: 76 years old Clinical indication: Fever TECHNIQUE: Imaging protocol: Radiologic exam of the chest. Views: 1 view. COMPARISON: CR XR chest 1V portable [id number] 11/30/2021 4:33 PM FINDINGS: Lungs: Minimal areas of lung base atelectasis or scarring. No consolidation. Pleural spaces: Unremarkable. No pleural effusion. No pneumothorax. Heart/Mediastinum: Heart is mildly enlarged. Bones/joints: No acute fracture visualized. XR/XR chest 1V portable [id number] IMPRESSION: 1. No acute findings. 2. No significant change has occurred from 11/30/2021. 3. Only minimal bibasilar atelectasis or scarring.
[2022-03-14 18:30] VITALS: BP 107/51; PULSE 78; RESP 18; TEMP 37.4; O2SAT 96
--- NOTE | 2022-03-14 18:30 | ECG_ITS ---
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 Measurements Intervals [place] Rate: 75 P: 55 [place]: 178 QRS: -8 QRSD: 101 T: 22 QT: 386 QTc: 434 Interpretive Statements SINUS RHYTHM POSSIBLE ANTERIOR MYOCARDIAL INFARCTION , OF INDETERMINATE AGE [30 ms Q WAVE IN V3/V4, OR R < 0.2 mV IN V4] Compared to ECG 02/15/2022 06:46:40 No significant changes Electronically Signed On 03-14-2022 19:46:36 LEAD BURNER SUPERVISOR by Atif Mendenhall M.D. [id number]
[2022-03-14 18:53] LABS: Basophils % 0.5 %; Eosinophils % 0.3 %; Hematocrit 26.8 % (37.0-47.0); Hemoglobin 8.4 g/dL (11.5-15.3); Lymphocytes # 1.1 10^3/uL (0.8-4.8); Lymphocytes % 19.3 %; Mean Corpuscular HGB Conc 31.3 g/dL (30.0-36.0); Mean Corpuscular Hemoglobin 26.5 pg (28.0-34.0); Mean Corpuscular Volume 84.5 fl (81-99); Mean Platelet Volume 9.2 fL (7.4-10.4); Monocytes # 0.7 10^3/uL (0.2-0.9); Monocytes % 12.6 %; Neutrophils # 3.86 10^3/uL (1.8-7.7); Neutrophils % 66.8 %; Nucleated Red Blood Cells % 0 %; Platelet Count 148 10^3/cmm (130-400); Red Blood Count 3.17 10^6/uL (4.1-5.3); Red Cell Distribution Width 18.4 % (12.1-15.1); White Blood Count 5.8 10^3/uL (4.0-10.0)
--- NOTE | 2022-03-14 18:56 | W.ED.AMS ---
HPI - Altered Mental Status General: Chief Complaint: Altered Mental Status Stated Complaint: FEVER/ AMS Time Seen by Provider: 03/14/22 18:27 Source: patient and EMS Mode of arrival: EMS Limitations: altered mental status History of Present Illness: 76-year-old female is here from detention with fever along with abdominal status he states that she has had altered mental status throughout the day and a fever up to 102 she did have a recent right wrist surgery last week she had no issues from that she had no cough no vomiting no diarrhea patient denies any pain. She is alert to self but does not know where she is or the date Review of Systems General: Reports: ROS unobtainable due to mental status PFSH ED PFSH: Medical History Abdominal ascites Abdominal pain Abnormal colonoscopy Anemia AVM (arteriovenous malformation) AVM (arteriovenous malformation) of colon with hemorrhage C. difficile colitis Cerebral aneurysm Closed fracture of right distal femur Diverticulosis Fluid overload GI bleed Esophageal variceal banding on 2 occasions in the past, EGD colonoscopy October 2015 upper endoscopy showed esophageal varices with no bleeding or stigmata of bleeding. Colonoscopy showed multiple AVMs in the ascending and proximal transverse colon which were cauterized. Extensive diverticulosis with internal and external hemorrhoids were noted. 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 (LLOYD) LLOYD (nonalcoholic steatohepatitis) Portal hypertension EGD esophageal banding on 03/25/16 she has been transfused multiple times Type 2 diabetes mellitus Surgical History S/P endoscopy Family History Other Family history non-contributory Social History Smoking and tobacco status: never smoked Alcohol intake: never Housing: House Physical Exam Const: COMMON NORMALS: negative for patient oriented x3 GENERAL APPEARANCE: ill appearing and frail appearing ORIENTATION/CONSCIOUSNESS: Yes oriented to person; not oriented to place and not oriented to time HENMT: COMMON NORMALS: normocephalic and atraumatic HEAD & SCALP: normocephalic and atraumatic Eye: COMMON NORMALS: conjunctivae normal CONJUNCTIVA: Yes conjunctivae normal Neck/C-Spine: COMMON NORMALS: supple and no meningeal signs Chest: COMMONS NORMALS: normal inspection of the chest and normal palpation of entire chest wall Resp: COMMON NORMALS: normal respiratory effort, No retractions and clear to auscultation bilaterally EFFORT & INSPECTION: Yes able to speak in complete sentences AUSCULTATION: clear to auscultation bilaterally Cardio: COMMON NORMALS: regular rate and regular rhythm RATE: regular rate RHYTHM: regular rhythm GI: COMMON NORMALS: Normal to inspection, nondistended, normoactive bowel sounds present, Soft to palpation and non-tender PALPATION: Yes Soft to palpation Back/Pelvis: COMMON NORMALS: thoracic and lumbar spine normal to inspection Extremity: COMMON NORMALS: normal to inspection Neuro: COMMON NORMALS: negative for patient oriented x3 SENSORIUM/ORIENTATION: Yes oriented to person, No oriented to place and No oriented to time MENINGEAL SIGNS: Yes no meningeal signs Psych: COMMON NORMALS: cooperative Skin: COMMON NORMALS: no rashes or lesions noted GENERAL SKIN EXAM: no rashes or lesions noted Course Vital Signs: Vital signs: Vital Signs Temperature 99.4 F 03/14/22 18:30 Pulse Rate 68 03/14/22 20:25 Respiratory Rate 14 03/14/22 20:25 Blood Pressure 120/46 03/14/22 20:25 Pulse Oximetry 100 03/14/22 20:25 Oxygen Delivery Me thod 03/14/22 20:25 MDM - Altered Mental Status Medical Decision Making Patient presents here with altered mental status from the detention along with fever likely from neck urinary tract infection spoke to the hospitalist will admit for IV antibiotics. Lab Data 03/14/22 18:16 03/14/22 18:16 Radiology Impressions Chest X-Ray 03/14/22 18:29 IMPRESSION: 1. No acute findings. 2. No significant change has occurred from 11/30/2021. 3. Only minimal bibasilar atelectasis or scarring. Head CT 03/14/22 18:29 IMPRESSION: 1. No acute intracranial abnormality. 2. Multiple chronic and postop findings, similar to 11/29/2021 exam. Laboratory Results WBC 5.8 10^3/uL (4.0-10.0) 03/14/22 18:16 RBC 3.17 10^6/uL (4.1-5.3) L 03/14/22 18:16 Hgb 8.4 g/dL (11.5-15.3) L 03/14/22 18:16 Hct 26.8 % (37.0-47.0) L 03/14/22 18:16 MCV 84.5 fl (81-99) 03/14/22 18:16 MCH 26.5 pg (28.0-34.0) L 03/14/22 18:16 MCHC 31.3 g/dL (30.0-36.0) 03/14/22 18:16 RDW 18.4 % (12.1-15.1) H 03/14/22 18:16 Plt Count 148 10^3/cmm (130-400) 03/14/22 18:16 MPV 9.2 fL (7.4-10.4) 03/14/22 18:16 Neut % (Auto) 66.8 % 03/14/22 18:16 Lymph % (Auto) 19.3 % 03/14/22 18:16 [place] % (Auto) 12.6 % 03/14/22 18:16 Eos % (Auto) 0.3 % 03/14/22 18:16 Baso % (Auto) 0.5 % 03/14/22 18:16 Neut # (Auto) 3.86 10^3/uL (1.8-7.7) 03/14/22 18:16 Lymph # (Auto) 1.1 10^3/uL (0.8-4.8) 03/14/22 18:16 [place] # (Auto) 0.7 10^3/uL (0.2-0.9) 03/14/22 18:16 Eos # (Auto) 0.0 10^3/uL (0.0-0.8) 03/14/22 18:16 Baso # (Auto) 0.0 10^3/uL (0.0-0.1) 03/14/22 18:16 Nucleated RBC % (auto) 0 % 03/14/22 18:16 Nucleated RBCs # 0.0 /100WBC 03/14/22 18:16 PT 16.80 SECONDS (12.1-14.9) H 03/14/22 18:16 INR 1.33 (0.8-1.2) H 03/14/22 18:16 Sodium 129 mmol/L (136-145) L 03/14/22 18:16 Potassium 4.3 mmol/L (3.5-5.1) 03/14/22 18:16 Chloride 96 mmol/L (98-107) L 03/14/22 18:16 Carbon Dioxide 20 mmol/L (22-29) L 03/14/22 18:16 Anion Gap 17.3 (5-19) 03/14/22 18:16 BUN 24 mg/dL (8-23) H 03/14/22 18:16 Creatinine 1.2 mg/dL (0.5-0.9) H 03/14/22 18:16 GFR Calculation Not Reportable 03/14/22 18:16 Glucose 124 mg/dL (65-115) H 03/14/22 18:16 Calculated Osmolality 273 mOsm/kg (285-295) L 03/14/22 18:16 Lactate 1.2 mmol/L (0.5-2.2) 03/14/22 19:08 Calcium 8.8 mg/dL (8.5-10.5) 03/14/22 18:16 Total Bilirubin 1.3 mg/dL (0.15-1.2) H 03/14/22 18:16 AST 26 U/L (0-32) 03/14/22 18:16 ALT 12 U/L (0-33) 03/14/22 18:16 Alkaline Phosphatase 220 U/L (35-105) H 03/14/22 18:16 Total Protein 7.4 g/dL (6.6-8.7) 03/14/22 18:16 Albumin 3.3 g/dL (3.5-5.2) L 03/14/22 18:16 Globulin 4.1 g/dL (1.3-4.6) 03/14/22 18:16 Urine Color Yellow (Yellow) 03/14/22 19:30 Urine Appearance Clear (CLEAR) 03/14/22 19:30 Urine pH 7 (5-7) 03/14/22 19:30 Ur Specific [place] 1.005 (1.005-1.030) 03/14/22 19:30 Urine Protein Neg (Negative) 03/14/22 19:30 Urine Glucose (UA) Norm (Normal) 03/14/22 19:30 Urine Ketones Negative (Negative) 03/14/22 19:30 Urine Blood Neg (Negative) 03/14/22 19:30 Urine Nitrate Negative (Negative) 03/14/22 19:30 Urine Bilirubin Neg (Negative) 03/14/22 19:30 Urine Urobilinogen Norm mg/dL (Negative) 03/14/22 19:30 Ur Leukocyte Esterase 2+ (Negative) H 03/14/22 19:30 Urine RBC None /hpf (0-2) 03/14/22 19:30 Urine WBC 0-4 /hpf (0-5) H 03/14/22 19:30 Ur Squamous Epith Cells 0-4 /hpf (0-5) H 03/14/22 19:30 Amorphous Sediment Not Reportable 03/14/22 19:30 Urine Bacteria 4+ /hpf (NONE) H 03/14/22 19:30 Influenza Type A Ag negative (Negative) 03/14/22 19:10 Influenza Type B Ag negative (Negative) 03/14/22 19:10 SARS-CoV-2 Ag (Rapid) Negative (Negative) 03/14/22 19:10 EKG Data EKG 1: I personally reviewed and interpreted this EKG as follows: EKG interpretation date: 03/14/22 EKG interpretation time: 18:51 Interpretation: nsr hr [address] or t wave abnormalities qrs 93 qtc 424 Discharge Plan Discharge Patient Disposition: Placed in Observation Clinical Impression: Altered mental status, Acute cystitis Condition: Stable Prescriptions: No Action ferrous sulfate 325 mg (65 mg iron) Tablet 325 mg PO BID@ insulin lispro [Humalog KwikPen Insulin] 100 unit/mL Insulin Pen See Rx Instructions .ROUTE .COMPLEX Rx Instructions: sliding scale before meals and at bedtime 140-175=2 units 176-200=3 units 201-250=5 units 251-299=7 units 300 plus =9 units mirtazapine 7.5 mg tablet 7.5 mg PO BEDTIME@19 acetaminophen 500 mg Tablet 1,000 mg PO Q6H PRN (Reason: Pain) magnesium hydroxide [Milk of Magnesia] 400 mg/5 mL Suspension 30 ml PO DAILY PRN (Reason: Constipation) bumetanide 1 mg Tablet 1 mg PO DAILY Qty: 60 0RF pantoprazole 40 mg Tablet,Delayed Release (Dr/Ec) 40 mg PO BID Xifaxan 550 mg Tablet 550 mg PO BID insulin glargine [Lantus Solostar U-100 Insulin] 100 unit/mL (3 mL) insulin pen 20 unit SUBCUT DAILY@08 oxycodone 5 mg tablet 5 mg PO Q6H PRN (Reason: pain) Qty: 28 0RF spironolactone 25 mg tablet 25 mg PO DAILY@07 Qty: 30 0RF ondansetron HCl 8 mg Tablet 8 mg PO Q8H PRN (Reason: Nausea) tramadol 50 mg Tablet 50 mg PO Q6H PRN (Reason: Pain) oxycodone 5 mg tablet 5 mg PO Q4H PRN (Reason: pain) Qty: 20 0RF Referrals: Che Holt DO [Primary Care Provider] - Coding Level of Care Code ED Iuss Analyst for Chg Fwd Exam Comprehensive
[2022-03-14 19:04] LABS: INR 1.33 (0.8-1.2)
[2022-03-14 19:10] LABS: Alanine Aminotransferase 12 U/L (0-33); Albumin Level 3.3 g/dL (3.5-5.2); Alkaline Phosphatase 220 U/L (35-105); Anion Gap 17.3 (5-19); Aspartate Amino Transferase 26 U/L (0-32); Blood Urea Nitrogen 24 mg/dL (8-23); Calcium 8.8 mg/dL (8.5-10.5); Carbon Dioxide 20 mmol/L (22-29); Chloride 96 mmol/L (98-107); Globulin 4.1 g/dL (1.3-4.6); Glucose 124 mg/dL (65-115); Osmolality Calculated 273 mOsm/kg (285-295); Potassium 4.3 mmol/L (3.5-5.1); Sodium 129 mmol/L (136-145); Total Bilirubin 1.3 mg/dL (0.15-1.2); Total Protein 7.4 g/dL (6.6-8.7)
[2022-03-14] MEDS: sodium chloride 0.9% 1,000 ML 999 ML IV (19:37)
[2022-03-14] MEDS: acetaminophen 325 mg Tablet 650 MG PO (19:37)
[2022-03-14 19:56] LABS: Specific Gravity, Urine 1.005 (1.005-1.030); Urine Appearance Clear (CLEAR); Urine Color Yellow (Yellow); pH Urine 7 (5-7)
[2022-03-14 19:57] LABS: Add Urine Culture? Yes; Add Urine Microscopic? YES; Bacteria Urine 4+ /hpf; Bilirubin Urine Neg (Negative); Blood Urine Neg (Negative); Glucose Urine UA Norm (Normal); Ketones Urine Negative (Negative); Leukocyte Esterase Urine 2+ (Negative); Nitrate Urine Negative (Negative); Protein Urine Neg (Negative); Squamous Epithelial Cell Urine 0-4 /hpf (0-5); Urobilinogen Urine Norm (Negative); WBC Urine 0-4 /hpf (0-5)
[2022-03-14 20:02] LABS: Influenza A by IFA negative (Negative); Influenza B by IFA negative (Negative)
[2022-03-14 20:05] LABS: SARS Covid-2 Antigen Negative (Negative)
[2022-03-14 20:08] LABS: Lactate (Lactic Acid level) 1.2 mmol/L (0.5-2.2)
[2022-03-14] MEDS: cefTRIAXone 1,000 MG in sodium chloride 0.9% (plus) 50 ML 100 MG IV (20:21)
[2022-03-14 20:25] VITALS: BP 120/46; PULSE 68; RESP 14; O2SAT 100
--- NOTE | 2022-03-14 20:26 | PM.HP ---
Providers/Chief Complaint Primary Care Provider: Che Holt DO Chief Complaint: FEVER/ AMS History of Present Illness Martha Moore is a 75 year old female with a past medical history of Menard, liver cirrhosis, recurrent ascites, history of recurrent GI bleed, portal hypertension, history of esophageal varices, history of deconditioning, history of AV malformations, history of C. difficile colitis, history of coagulopathy, CAD, diabetes, insulin-dependent, history of cerebral aneurysm status post clipping, who is legally deaf, who was treated for UTI in the past for Proteus, E. coli, Klebsiella,Pseudomonas, chronic esophageal varices, slow GI blood loss she required 3 units of blood transfusion on previous visit when she was admitted for right distal radius fracture management, right femur fracture intervention 11/29/2021 presenting today for worsening of confusion. Patient is stating that today she was being assisted by the nursing staff when she was about to go to the bathroom, caregiver lost balance and she was about to hit the ground but he regained his balance and eventually avoided another injury and fall. She was told by the nursing staff about fever however she has not noticed any chest pain, shortness of breath, abdominal pain or urinary frequency or dysuria. She was sent to the hospital for further evaluation In the ER her UA does not look infected however there is bacteriuria with positive leukocyte esterase She is not complaining of any abdominal pain She is awake and alert NIH 0 No signs of tender abdomen Patient is awake and alert she was asking why she is being admitted She is awake and alert x3 GCS 15 No active signs of hepatic encephalopathy Review of Systems Const: Reports: body aches Eyes: Denies: change in vision ENMT: Denies: throat pain Card: Denies: chest pain Resp: Denies: dyspnea GI: Denies: abdominal pain : Denies: flank pain Musc: Denies: neck pain Skin/Breast: Denies: rash Neuro: Denies: headache(s) Psych: Reports: anxiety Endo: Denies: polyuria Tej/Lymph: Denies: easy bruising All/Imm: Denies: urticaria Medications/Allergies Home Medications Medication Instructions Recorded Confirmed Last Taken Type ferrous sulfate 325 mg (65 mg 325 mg PO BID@07,17 06/11/21 03/07/22 02/23/22 History iron) tablet insulin lispro 100 unit/mL See Rx Instructions .Route .COMPLEX 06/11/21 03/07/22 02/23/22 History subcutaneous pen (Humalog KwikPen (U-100) Insulin) mirtazapine 7.5 mg tablet 7.5 mg PO BEDTIME@19 06/11/21 03/07/22 02/23/22 History acetaminophen 500 mg tablet 1,000 mg PO Q6H PRN Pain 06/16/21 03/07/22 02/23/22 History magnesium hydroxide 400 mg/5 mL 30 ml PO DAILY PRN Constipation 06/16/21 03/07/22 Unknown History oral suspension (Milk of Magnesia) ondansetron HCl 8 mg tablet 8 mg PO Q8H PRN Nausea 08/22/21 03/07/22 02/23/22 History tramadol 50 mg tablet 50 mg PO Q6H PRN Pain 08/22/21 03/07/22 02/23/22 History bumetanide 1 mg tablet 1 mg PO DAILY #60 tabs 09/13/21 03/07/22 02/23/22 Rx insulin glargine 100 unit/mL (3 20 unit SUBCUT DAILY@08 11/28/21 03/07/22 02/23/22 History mL) subcutaneous pen (Lantus Solostar U-100 Insulin) pantoprazole 40 mg tablet,delayed 40 mg PO BID 11/28/21 03/07/22 02/23/22 History release rifaximin 550 mg tablet (Xifaxan) 550 mg PO BID 11/28/21 03/07/22 02/23/22 History oxycodone 5 mg tablet 5 mg PO Q6H PRN pain #28 tabs 12/01/21 03/07/22 02/23/22 Rx spironolactone 25 mg tablet 25 mg PO DAILY@07 #30 tabs 12/03/21 03/07/22 02/23/22 Rx oxycodone 5 mg tablet 5 mg PO Q4H PRN pain #20 tabs 02/24/22 03/07/22 Unknown Rx Allergies Allergy/AdvReac Type Severity Reaction Status Date / Time aspirin Allergy Intermediate rash Verified 03/07/22 10:42 atropine Allergy Intermediate unknown Verified 03/07/22 10:42 tositumomab iodine-131 Allergy Mild ALGY-Hives Verified 03/07/22 10:42 ciprofloxacin Allergy ALGY-Rash Verified 03/07/22 10:42 hydrocodone Allergy Unknown Verified 03/07/22 10:42 iodine Allergy ALGY-Hives Verified 03/07/22 10:42 meperidine [From Demerol] Allergy ADR-Nausea Verified 03/07/22 10:42 Sulfa (Sulfonamide Allergy ALGY-Rash Verified 03/07/22 10:42 Antibiotics) PFSH Acute PFSH: Medical History Abdominal ascites Abdominal pain Abnormal colonoscopy Anemia AVM (arteriovenous malformation) AVM (arteriovenous malformation) of colon with hemorrhage C. difficile colitis Cerebral aneurysm Closed fracture of right distal femur Diverticulosis Fluid overload GI bleed Esophageal variceal banding on 2 occasions in the past, EGD colonoscopy October 2015 upper endoscopy showed esophageal varices with no bleeding or stigmata of bleeding. Colonoscopy showed multiple AVMs in the ascending and proximal transverse colon which were cauterized. Extensive diverticulosis with internal and external hemorrhoids were noted. 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 (MENARD) MENARD (nonalcoholic steatohepatitis) Portal hypertension EGD esophageal banding on 03/25/16 she has been transfused multiple times Type 2 diabetes mellitus Surgical History S/P endoscopy Family History Other Family history non-contributory Social History Smoking and tobacco status: never smoked Alcohol intake: never Housing: House Vitals/I&O/Wt Last Vital Signs Temp 99.4 F 03/14/22 18:30 Pulse 68 03/14/22 20:25 Resp 14 03/14/22 20:25 BP 120/46 03/14/22 20:25 Pulse Ox 100 03/14/22 20:25 O2 Del Method 03/14/22 20:25 03/14/22 03/14/22 03/14/22 06:59 14:59 22:59 Intake Total 1000 / 1000 Balance 1000 / 1000 Weight last 48 hrs Weight 54.431 kg Physical Exam Narrative: No active signs of hepatic encephalopathy No asterixis Awake and alert NIH 0 Abdomen distended however nontender Lower extremity no edema Patient is in good mood and spirit S1, S2 with aortic systolic murmur grade 2/6 No audible stridor or wheezing Saturating well on room air GCS 15 No skin rash or cellulitis Data 03/14/22 18:16 03/14/22 18:16 Micro: Microbiology 03/14/22 19:16 Blood Culture - Preliminary Blood SPECIMEN COLLECTED 03/14/22 19:08 Blood Culture - Preliminary Blood SPECIMEN COLLECTED A&P Assessment and plan (1) Type 2 diabetes mellitus: Qualifiers: Diabetes mellitus assisted insulin use: with tank terminal gauger use Diabetes mellitus complication status: without complication Qualified Code(s): E11.9 - Type 2 diabetes mellitus without complications; Z79.4 - assistant terminal manager (current) use of insulin (2) Iron deficiency anemia secondary to blood loss (chronic): (3) Altered mental status: Plan Altered mental status likely metabolic There was concern for UTI however UA is not showing nitrites or significant pyuria Positive bacteriuria No active symptoms or signs of UTI No active signs of hepatic encephalopathy Ammonia level is normal No active signs of decompensated liver cirrhosis Reported single episode of fever at snf however no active febrile events noted in the ER She has been given antibiotics for possible UTI Patient was questioning why she is being admitted she is awake and alert, GCS 15 She is doing well on room air My suspicion is low for SBP and absence of hepatic encephalopathy Continue diuretics Continue electrolyte replenishment Chronic hyponatremia sodium 129 with underlying diagnosis of liver cirrhosis JAMEE, creatinine is normally less than 1 Full code Cardiac diet Might be able to go back to [place] tomorrow Considering history of liver cirrhosis, ascites I will keep her on empirical treatment of ceftriaxone prophylactic measure for SBP Attestations Medical Necessity Statement*: Anticipating discharge within 48 hours Time Spent in Patient Care: 40 Coding Level of Care Code Acute Continuous Improvement Coordinator for [facility] Fwd Diagnoses Type 2 diabetes mellitus E11.9; Z79.4 Diabetes mellitus tank terminal gauger insulin use: with assisted use Diabetes mellitus complication status: without complication Iron deficiency anemia secondary to blood loss (chronic) D50.0 Altered mental status R41.82
[2022-03-14 21:02] LABS: Ammonia 48 umol/L (11-51)
[2022-03-14 21:03] LABS: Procalcitonin 0.52 ng/mL (0-0.5)
[2022-03-14 21:30] VITALS: BP 120/48; PULSE 67; RESP 15; O2SAT 97
[2022-03-15] VITALS (16 sets, daily range): BP systolic 92–148; BP diastolic 52–61; PULSE 69–84; RESP 15–20; TEMP 36.8–39; O2SAT 91–98
[2022-03-15] MEDS: acetaminophen 500 mg Tablet PO ×2 (04:35→18:06)
[2022-03-15] MEDS: TRAMadol 50 mg Tablet PO ×2 (04:35→20:48)
[2022-03-15 05:17] LABS: Basophils % 0.5 %; Eosinophils % 0.3 %; Hematocrit 23.5 % (37.0-47.0); Lymphocytes # 0.4 10^3/uL (0.8-4.8); Lymphocytes % 11.8 %; Mean Corpuscular HGB Conc 31.1 g/dL (30.0-36.0); Mean Corpuscular Hemoglobin 26.5 pg (28.0-34.0); Mean Corpuscular Volume 85.5 fl (81-99); Monocytes # 0.4 10^3/uL (0.2-0.9); Monocytes % 11.2 %; Neutrophils # 2.84 10^3/uL (1.8-7.7); Neutrophils % 75.9 %; Nucleated Red Blood Cells % 0 %; Red Blood Count 2.75 10^6/uL (4.1-5.3); Red Cell Distribution Width 18.3 % (12.1-15.1); White Blood Count 3.7 10^3/uL (4.0-10.0)
[2022-03-15 05:39] LABS: Hemoglobin 7.3 g/dL (11.5-15.3); Platelet Count 102 10^3/cmm (130-400)
[2022-03-15 05:48] LABS: Anion Gap 14.7 (5-19); Blood Urea Nitrogen 23 mg/dL (8-23); Calcium 8.4 mg/dL (8.5-10.5); Carbon Dioxide 21 mmol/L (22-29); Chloride 104 mmol/L (98-107); Glucose 135 mg/dL (65-115); Magnesium 1.8 mg/dL (1.7-2.3); Osmolality Calculated 286 mOsm/kg (285-295); Phosphorus 3.4 mg/dL (2.5-4.5); Potassium 4.7 mmol/L (3.5-5.1); Sodium 135 mmol/L (136-145)
--- NOTE | 2022-03-15 06:00 | PC.NURSE ---
Referred Pt to for review of Hem 7.3. Awaiting orders.
[2022-03-15] MEDS: ferrous sulfate EC 325 mg Tablet PO ×2 (06:19→17:36)
[2022-03-15] MEDS: spironolactone 25 mg Tablet PO (06:19)
[2022-03-15 07:04] LABS: Glucose Point of Care 152 mg/dL (70-110)
[2022-03-15] MEDS: bumetanide 1 mg Tablet PO (09:00)
[2022-03-15] MEDS: pantoprazole DR 40 mg Tablet PO ×2 (09:01→17:34)
[2022-03-15] MEDS: cefTRIAXone 2,000 MG in sodium chloride 0.9% (plus) 50 ML 100 MG IV (09:02)
[2022-03-15] MEDS: insulin lispro 100 unit/1 mL SUBCUT ×2 (09:03→11:57)
[2022-03-15] MEDS: insulin glargine 100 units/1 mL 15 UNIT SUBCUT (09:57)
[2022-03-15 11:15] LABS: Glucose Point of Care 162 mg/dL (70-110)
--- NOTE | 2022-03-15 12:25 | PC.NURSE ---
Report called to David Gaines LPN.
[2022-03-15 12:56] LABS: Acinetobacter baumannii Not Detected (NOT DETECT); Bacteroides fragilis Not Detected (NOT DETECT); CTX-M Detected (NOT DETECT); Citrobacter Not Detected (NOT DETECT); Cronobacter sakazakii Not Detected (NOT DETECT); Enterobacter cloacae complex Not Detected (NOT DETECT); Enterobacter non cloacae Not Detected (NOT DETECT); Fusobacterium necrophorum Not Detected (NOT DETECT); Fusobacterium nucleatum Not Detected (NOT DETECT); Haemophilus influenzae Not Detected (NOT DETECT); IMP Resistance Gene Not Detected (NOT DETECT); KPC Resistance Gene Not Detected (NOT DETECT); Klebsiella pneumoniae group Not Detected (NOT DETECT); Morganella morganii Not Detected (NOT DETECT); NDM Resistance Gene Not Detected (NOT DETECT); Neisseria meningitidis Not Detected (NOT DETECT); OXA Resistance Gene Not Detected (NOT DETECT); Pan Candida Not Detected (NOT DETECT); Pan Gram-Positive Not Detected (NOT DETECT); Proteus mirabilis Not Detected (NOT DETECT); Pseudomonas aeruginosa Not Detected (NOT DETECT); Salmonella Not Detected (NOT DETECT); Serratia Not Detected (NOT DETECT); Serratia marcescens Not Detected (NOT DETECT); Stenotrophomonas maltophilia Not Detected (NOT DETECT); VIM Resistance Gene Not Detected (NOT DETECT)
--- NOTE | 2022-03-15 13:19 | P.PN_ITS ---
Subjective Subjective: Patient was seen and examined this morning she is extremely hard of hearing, though she denied any evident chest pain shortness of breath cough. Her other vitals and labs have been reviewed. Medications: Medication Review Details: Generic Name Dose Route Start Last Admin Trade Name Myra PRN Reason Stop Dose Admin Acetaminophen 500 mg 03/14/22 23:24 03/15/22 04:35 Acetaminophen 50 0 Mg Tablet PO 500 mg Q4H PRN Administration fever Bumetanide 1 mg 03/15/22 09:00 03/15/22 09:00 Bumetanide 1 Mg Tablet PO 1 mg DAILY RAMYA Administration Ferrous Sulfate 325 mg 03/15/22 07:00 03/15/22 06:19 Ferrous Sulfate Ec 325 Mg Tablet PO 325 mg BID@07,17 RAMYA Administration Insulin Glargine 15 unit 03/15/22 08:00 03/15/22 09:57 Insulin Glargine 100 Units/1 Ml SUBCUT 15 unit DAILY@08 RAMYA Administration Insulin Human Lisp ro 0 unit 03/15/22 08:00 03/15/22 11:57 Insulin Lispro 1 00 Unit/1 Ml SUBCUT 2 unit TIDWM [facility] Administration Protocol Pantoprazole Sodiu m 40 mg 03/15/22 09:00 03/15/22 09:[address] 40 Mg Tablet PO 40 mg BID RAMYA Administration Rifaximin 550 mg 03/15/22 09:00 03/15/22 09:00 Rifaximin 550 Mg Tablet PO 550 mg BID RAMYA Administration Protocol Spironolactone 25 mg 03/15/22 07:00 03/15/22 06:19 Spironolactone 2 5 Mg Tablet PO 25 mg DAILY@07 RAMYA Administration Tramadol HCl 50 mg 03/14/22 23:24 03/15/22 04:35 Tramadol 50 Mg T ablet PO 50 mg Q6H PRN Administration Pain Vitals/I&O/Wt Last Vital Signs Temp 99.4 F 03/15/22 11:56 Pulse 84 03/15/22 11:56 Resp 16 03/15/22 11:56 BP 112/61 03/15/22 11:56 Pulse Ox 98 03/15/22 11:56 O2 Del Method 03/15/22 11:56 03/14/22 03/15/22 03/15/22 22:59 06:59 14:59 Intake Total 1050 / 1050 240 / 1290 170 / 170 Balance 1050 / 1050 240 / 1290 170 / 170 Weight last 48 hrs Weight 54.431 kg Physical Exam Narrative: Patient is very hard of hearing, currently she has denied any chest pain shortness of breath Resp: COMMON NORMALS: normal respiratory effort, No retractions, No use of accessory muscles and clear to auscultation bilaterally EFFORT & INSPECTION: Yes symmetric chest movement AUSCULTATION: clear to auscultation bilaterally Cardio: COMMON NORMALS: regular rate, regular rhythm, S1 normal heart sound present, S2 normal heart sound present, No gallops present (Cardio), No murmurs present (Cardio), No rub (Cardio) and Peripheral pulses 2+ throughout RATE: regular rate RHYTHM: regular rhythm HEART SOUNDS: S1 normal heart sound present and S2 normal heart sound present PERIPHERAL PULSES: Peripheral pulses 2+ throughout GI: COMMON NORMALS: Normal to inspection, nondistended, normoactive bowel sounds present, Soft to palpation, non-tender, No hepatosplenomegaly present and no masses AUSCULTATION: Yes normoactive bowel sounds PALPATION: Yes Soft to palpation and Yes No hepatosplenomegaly present RECTAL EXAM: deferred Extremity: COMMON NORMALS: no clubbing, cyanosis or edema and no pedal edema Data 03/15/22 04:15 03/15/22 04:15 Micro: Microbiology 03/14/22 19:08 Blood Culture - Preliminary Blood Escherichia coli esbl 03/14/22 19:16 Blood Culture - Preliminary Blood SPECIMEN COLLECTED A&P Assessment and plan (1) Type 2 diabetes mellitus: Qualifiers: Diabetes mellitus complication status: without complication Diabetes mellitus regional 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 difficile colitis, diabetes coronary artery disease, cerebral aneurysm status post clipping, legally deaf, recurrent UTI, Was brought in from [facility] after she was about to fall, as the caregiver lost balance tool maker apprentice was helping her to go to the bathroom, she was also likely experiencing fever at intermediate. She was admitted for the management of Assessment: Acute metabolic encephalopathy Bacteremia Possible UTI Chronic hyponatremia Chronic anemia decompensated liver cirrhosis, LLOYD, recurrent ascites, history of recurrent GI bleed H/O Portal hypertension , esophageal varices physical deconditioning AVM C. difficile colitis, diabetes coronary artery disease, cerebral aneurysm status post clipping JAMEE on CKD: Admission serum creatinine 1.2 , it appears that baseline serum creatinine is usually around 0.6-0.7: Low clinical suspicion for HRS. Plan: CT head without contrast: No acute intracranial pathology X-ray chest: No infiltrates no effusion Blood culture is growin out of 4 bottle ESBL E. coli White blood cell count is 3.7, H&H is 7.3/23, platelet count is 102 Ammonia is 48, AST ALT is normal, alk phos is 220, total bilirubin is 1.3 Procalcitonin 0.52 Urinalysis is showing 4+ bacteria, 2+ leukocyte esterase, nitrite is negative, urine WBC 0-4 Given the fact that the blood culture is growing 1 out of 4 ESBL E. coli: For now will empirically cover her with meropenem. Follow repeat blood culture. No clinical concern for hepatic encephalopathy. Low clinical suspicion for SBP. Continue Bumex, spironolactone and rifaximin We will transfuse her 1 unit PRBC today: Monitor H&H Continue Lantus,SSI, monitor fingerstick glucose Continue Protonix twice daily Full code Cardiac diet Attestations Medical Necessity Statement*: Patient is still in hospital for bacteremia. Need for IV antibiotic. Time Spent in Patient Care: Greater than 35 minutes (>than 50% of time spent in counselling and/or direct pt care on unit) . Coding Level of Care Code Acute Per Diem Physical Therapist for Chg Fwd Exam Expanded Problem Focused Diagnoses Type 2 diabetes mellitus E11.9; Z79.4 Diabetes mellitus complication status: without complication Diabetes mellitus regional intermodal truck driver insulin use: with nursing home use Iron deficiency anemia secondary to blood loss (chronic) D50.0 Altered mental status R41.82 Bacteremia R78.81
[2022-03-15] MEDS: meropenem 500 MG in sodium chloride 0.9% (plus) 50 ML 100 MG IV ×2 (13:35→20:49)
[2022-03-15] MEDS: sodium chloride 0.9% 100 ML 20 ML IV (14:41)
[2022-03-15 17:10] LABS: Glucose Point of Care 110 mg/dL (70-110)
--- NOTE | 2022-03-15 18:23 | PC.NURSE ---
Patient has had a decline in mental status throughout shift, patient currently having elevated temp and antipyretic given, physician notified of mental status change and febrile. Remaining VSS, patient having difficulty swallowing pills this evening, when performing NIH patient was not following commands well and answered March for the year. Patient repeats her name and . Report will be given bedside at shift change oncoming nurse. Room clean and clutter free with call light in reach.
[2022-03-15 20:56] LABS: Glucose Point of Care 124 mg/dL (70-110)
[2022-03-15 20:59] LABS: Hematocrit 27.7 % (37.0-47.0); Hemoglobin 8.7 g/dL (11.5-15.3)
--- NOTE | 2022-03-15 23:06 | PC.NURSE ---
Went into patients room to round. Patient was distraught and irritated that she was still here in the hospital. Patient is complaining of needing to have a bowel movement and had her finger in her anus trying to get it out. She did have a small bowel movement. They it was very hard and appeared to have a hemroid. It looked like she could go some more but was struggling. I cleaned her up because she had bowel movement all over her.
[2022-03-16] VITALS (8 sets, daily range): BP systolic 109–115; BP diastolic 60–72; PULSE 70–97; RESP 16–18; TEMP 36.5–37.1; O2SAT 92–99
[2022-03-16 03:37] LABS: Basophils % 0.4 %; Hemoglobin 8.8 g/dL (11.5-15.3); Lymphocytes # 0.4 10^3/uL (0.8-4.8); Lymphocytes % 15.8 %; Mean Corpuscular HGB Conc 31.4 g/dL (30.0-36.0); Mean Corpuscular Hemoglobin 27.1 pg (28.0-34.0); Mean Corpuscular Volume 86.2 fl (81-99); Mean Platelet Volume 9.6 fL (7.4-10.4); Monocytes # 0.1 10^3/uL (0.2-0.9); Monocytes % 2.6 %; Neutrophils # 1.89 10^3/uL (1.8-7.7); Neutrophils % 80.8 %; Nucleated Red Blood Cells % 0 %; Platelet Count 112 10^3/cmm (130-400); Red Blood Count 3.25 10^6/uL (4.1-5.3); Red Cell Distribution Width 17.4 % (12.1-15.1); White Blood Count 2.3 10^3/uL (4.0-10.0)
[2022-03-16 03:55] LABS: Lactate (Lactic Acid level) 1.3 mmol/L (0.5-2.2)
[2022-03-16 04:03] LABS: Alanine Aminotransferase 11 U/L (0-33); Albumin Level 2.6 g/dL (3.5-5.2); Alkaline Phosphatase 191 U/L (35-105); Anion Gap 16.4 (5-19); Aspartate Amino Transferase 23 U/L (0-32); Blood Urea Nitrogen 28 mg/dL (8-23); Calcium 8.2 mg/dL (8.5-10.5); Carbon Dioxide 18 mmol/L (22-29); Chloride 98 mmol/L (98-107); Globulin 3.9 g/dL (1.3-4.6); Glucose 433 mg/dL (65-115); Osmolality Calculated 290 mOsm/kg (285-295); Potassium 4.4 mmol/L (3.5-5.1); Sodium 128 mmol/L (136-145); Total Bilirubin 0.9 mg/dL (0.15-1.2); Total Protein 6.5 g/dL (6.6-8.7)
[2022-03-16] MEDS: meropenem 500 MG in sodium chloride 0.9% (plus) 50 ML 100 MG IV ×3 (04:47→22:10)
--- NOTE | 2022-03-16 04:51 | PC.NURSE ---
Pt pulled out IV to L FA. No bleeding noted to site. 22G IV started to L FA x 1 attempt. Successful, good blood return noted, and flushes w/ease. IV ABT initiated.
[2022-03-16] MEDS: spironolactone 25 mg Tablet PO (06:16)
[2022-03-16] MEDS: ferrous sulfate EC 325 mg Tablet PO ×2 (06:16→17:26)
[2022-03-16 06:25] LABS: Glucose Point of Care 400 mg/dL (70-110)
[2022-03-16 06:25] LABS: Glucose Point of Care 194 mg/dL (70-110)
[2022-03-16 06:25] LABS: Glucose Point of Care 143 mg/dL (70-110)
--- NOTE | 2022-03-16 08:50 | PC.NURSE ---
Nurse entered patients room and patient is complaining she needs to have a bowel movement and crying it hurts and I can't get it out. Nurse assessed her bottom and noted a small amount of stool attempting to come out while she was pushing. Upon palpation around patients anus, nurse felt a soft ball sized hard ball stuck in her rectum. While she pushed nurse assisted while pressing around the anus to form the stool to allow it to pass. At this time patient passed a very large amount of hard stool. After assisting patient with her bowel movement she stopped crying and thanked me for helping her and stated she felt better. Patient was very aware of her surrounding and what was occurring. She stated she was just having a hard time hearing due to her hearing aids had been left at the half-way.
[2022-03-16] MEDS: insulin lispro 100 unit/1 mL SUBCUT ×2 (09:41→17:28)
[2022-03-16] MEDS: bumetanide 1 mg Tablet PO (09:42)
[2022-03-16] MEDS: acetaminophen 500 mg Tablet PO ×3 (09:42→22:17)
[2022-03-16] MEDS: pantoprazole DR 40 mg Tablet PO ×2 (09:42→16:16)
[2022-03-16 11:13] LABS: Glucose Point of Care 501 mg/dL (70-110)
[2022-03-16 11:13] LABS: Glucose Point of Care 508 mg/dL (70-110)
[2022-03-16] MEDS: insulin glargine 100 units/1 mL 15 UNIT SUBCUT (12:03)
[2022-03-16 12:09] LABS: Blood Urea Nitrogen 31 mg/dL (8-23); Calcium 8.1 mg/dL (8.5-10.5); Carbon Dioxide 17 mmol/L (22-29); Chloride 92 mmol/L (98-107); Osmolality Calculated 286 mOsm/kg (285-295); Sodium 123 mmol/L (136-145)
[2022-03-16 12:13] LABS: Glucose 527 mg/dL (65-115)
[2022-03-16] MEDS: insulin lispro 100 unit/1 mL 20 UNIT SUBCUT (12:33)
[2022-03-16 13:25] LABS: Glucose Point of Care 435 mg/dL (70-110)
[2022-03-16] MEDS: insulin lispro 100 unit/1 mL 10 UNIT SUBCUT (13:59)
--- NOTE | 2022-03-16 15:55 | P.PN_ITS ---
Subjective Subjective: Patient was seen and examined this morning, received 1 unit PRBC transfusion yesterday, posttransfusion she developed fever: Noted T-max was 102.2, responded well to Tylenol. Medications: Medication Review Details: Generic Name Dose Route Start Last Admin Trade Name Norbertq PRN Reason Stop Dose Admin Acetaminophen 500 mg 03/14/22 23:24 03/16/22 09:42 Acetaminophen 50 0 Mg Tablet PO 500 mg Q4H PRN Administration fever Bumetanide 1 mg 03/15/22 09:00 03/16/22 09:42 Bumetanide 1 Mg Tablet PO 1 mg DAILY RAMYA Administration Ferrous Sulfate 325 mg 03/15/22 07:00 03/16/22 06:16 Ferrous Sulfate Ec 325 Mg Tablet PO 325 mg BID@,17 [facility] Administration Meropenem 500 mg/ Sodium 50 mls @ 100 mls/ hr 03/15/22 13:30 03/16/22 13:58 Chloride IV Infused Q8H RAMYA Infusion Insulin Human Lisp ro 0 unit 03/15/22 08:00 03/16/22 12:32 Insulin Lispro 1 00 Unit/1 Ml SUBCUT Not Given TIDWM [facility] Protocol Pantoprazole Sodiu m 40 mg 03/15/22 09:00 03/16/22 09:[address] 40 Mg Tablet PO 40 mg BID RAMYA Administration Rifaximin 550 mg 03/15/22 09:00 03/16/22 09:42 Rifaximin 550 Mg Tablet PO 550 mg BID RAMYA Administration Protocol Spironolactone 25 mg 03/15/22 07:00 03/16/22 06:16 Spironolactone 2 5 Mg Tablet PO 25 mg DAILY@07 RAMYA Administration Tramadol HCl 50 mg 03/14/22 23:24 03/15/22 20:48 Tramadol 50 Mg T ablet PO 50 mg Q6H PRN Administration Pain Vitals/I&O/Wt Last Vital Signs Temp 98.4 F 03/16/22 15:13 Pulse 75 03/16/22 15:13 Resp 16 03/16/22 15:13 BP 112/64 03/16/22 15:13 Pulse Ox 99 03/16/22 15:13 O2 Del Method 03/16/22 15:13 03/16/22 03/16/22 03/16/22 06:59 14:59 22:59 Intake Total 50 / 862 530 / 530 Balance 50 / 862 530 / 530 Weight last 48 hrs Weight 54.431 kg Physical Exam Narrative: Patient is very hard of hearing, currently she has denied any chest pain shortness of breath Resp: COMMON NORMALS: normal respiratory effort, No retractions, No use of accessory muscles and clear to auscultation bilaterally EFFORT & INSPECTION: Yes symmetric chest movement AUSCULTATION: clear to auscultation bilaterally Cardio: COMMON NORMALS: regular rate, regular rhythm, S1 normal heart sound present, S2 normal heart sound present, No gallops present (Cardio), No murmurs present (Cardio), No rub (Cardio) and Peripheral pulses 2+ throughout RATE: regular rate RHYTHM: regular rhythm HEART SOUNDS: S1 normal heart sound present and S2 normal heart sound present PERIPHERAL PULSES: Peripheral pulses 2+ throughout GI: COMMON NORMALS: Normal to inspection, nondistended, normoactive bowel sounds present, Soft to palpation, non-tender, No hepatosplenomegaly present and no masses AUSCULTATION: Yes normoactive bowel sounds PALPATION: Yes Soft to palpation and Yes No hepatosplenomegaly present RECTAL EXAM: deferred Extremity: COMMON NORMALS: no clubbing, cyanosis or edema and no pedal edema Data 03/16/22 03:29 03/16/22 11:35 Micro: Microbiology 03/14/22 19:30 Urine Culture - Preliminary Urine,Clean Catch Gram Negative Rods 03/16/22 03:29 Blood Culture - Preliminary Blood SPECIMEN COLLECTED 03/16/22 03:29 Blood Culture - Preliminary Blood SPECIMEN COLLECTED 03/14/22 19:16 Blood Culture - Preliminary Blood NEGATIVE TO DATE 03/14/22 19:08 Blood Culture - Preliminary Blood Escherichia coli esbl A&P Assessment and plan (1) Type 2 diabetes mellitus: Qualifiers: Diabetes mellitus complication status: without complication Diabetes mellitus [facility] insulin use: with [facility] use Qualified Code(s): E11.9 - Type 2 diabetes mellitus without complications; Z79.4 - termite treater helper (current) use of insulin (2) Iron deficiency anemia secondary to blood loss (chronic): (3) Altered mental status: (4) Bacteremia: Plan 76-year-old female with past medical history of decompensated liver cirrhosis, LLOYD, recurrent ascites, history of recurrent GI bleed portal hypertension ,esophageal varices physical deconditioning AVM C. difficile colitis, diabetes coronary artery disease, cerebral aneurysm status post clipping, legally deaf, recurrent UTI, Was brought in from [facility] after she was about to fall, as the caregiver lost balance registered diet technician was helping her to go to the bathroom, she was also likely experiencing fever at [facility]. She was admitted for the management of Assessment: Acute metabolic encephalopathy Bacteremia Possible UTI Chronic hyponatremia Chronic anemia decompensated liver cirrhosis, LLOYD, recurrent ascites, history of recurrent GI bleed H/O Portal hypertension , esophageal varices physical deconditioning AVM C. difficile colitis, diabetes coronary artery disease, cerebral aneurysm status post clipping JAMEE on CKD: Admission serum creatinine 1.2 , it appears that baseline serum creatinine is usually around 0.6-0.7: Low clinical suspicion for HRS. Fever Pseudohyponatremia Hyperglycemia Plan: CT head without contrast: No acute intracranial pathology X-ray chest: No infiltrates no effusion Blood culture is growin out of 4 bottle ESBL E. coli White blood cell count is 3.7, H&H is 7.3/23, platelet count is 102 Ammonia is 48, AST ALT is normal, alk phos is 220, total bilirubin is 1.3 Procalcitonin 0.52 Urinalysis is showing 4+ bacteria, 2+ leukocyte esterase, nitrite is negative, urine WBC 0-4 Given the fact that the blood culture is growing 1 out of 4 ESBL E. coli: For now will empirically cover her with meropenem. Follow repeat blood culture. No clinical concern for hepatic encephalopathy. Low clinical suspicion for SBP. Continue Bumex, spironolactone and rifaximin s/p 1 unit PRBC today: Monitor H&H Continue Lantus,SSI, monitor fingerstick glucose Continue Protonix twice daily Full code Cardiac diet Attestations Medical Necessity Statement*: Patient is still in hospital for management of bacteremia. Coding Level of Care Code Acute Sales Vice President for Chg Fwd Exam Expanded Problem Focused Diagnoses Type 2 diabetes mellitus E11.9; Z79.4 Diabetes mellitus complication status: without complication Diabetes mellitus [facility] insulin use: with adjunct faculty for medical terminology use Iron deficiency anemia secondary to blood loss (chronic) D50.0 Altered mental status R41.82 Bacteremia R78.81
[2022-03-16] MEDS: TRAMadol 50 mg Tablet PO (16:15)
[2022-03-16 17:00] LABS: Glucose Point of Care 296 mg/dL (70-110)
[2022-03-16] MEDS: docusate sodium 10 mg/mL (5ml) Liq 100 MG PO (17:26)
[2022-03-16] MEDS: insulin glargine 100 units/1 mL 20 UNIT SUBCUT (22:11)
[2022-03-17] VITALS (7 sets, daily range): BP systolic 94–118; BP diastolic 42–66; PULSE 60–75; RESP 16–21; TEMP 36.7–37.1; O2SAT 96–99
[2022-03-17 02:03] LABS: Lymphocytes # 0.3 10^3/uL (0.8-4.8); Mean Corpuscular Hemoglobin 27.3 pg (28.0-34.0); Mean Corpuscular Volume 85.3 fl (81-99); Mean Platelet Volume 9.7 fL (7.4-10.4); Monocytes # 0.2 10^3/uL (0.2-0.9); Monocytes % 6.2 %; Neutrophils # 3.01 10^3/uL (1.8-7.7); Neutrophils % 84.5 %; Nucleated Red Blood Cells % 0 %; Platelet Count 133 10^3/cmm (130-400); Red Blood Count 2.93 10^6/uL (4.1-5.3); Red Cell Distribution Width 17.2 % (12.1-15.1); White Blood Count 3.6 10^3/uL (4.0-10.0)
[2022-03-17 02:26] LABS: Alanine Aminotransferase 10 U/L (0-33); Albumin Level 2.8 g/dL (3.5-5.2); Alkaline Phosphatase 184 U/L (35-105); Anion Gap 14.1 (5-19); Aspartate Amino Transferase 17 U/L (0-32); Blood Urea Nitrogen 31 mg/dL (8-23); Calcium 8.3 mg/dL (8.5-10.5); Carbon Dioxide 21 mmol/L (22-29); Chloride 98 mmol/L (98-107); Globulin 3.3 g/dL (1.3-4.6); Glucose 335 mg/dL (65-115); Osmolality Calculated 288 mOsm/kg (285-295); Potassium 4.1 mmol/L (3.5-5.1); Sodium 129 mmol/L (136-145); Total Bilirubin 0.5 mg/dL (0.15-1.2); Total Protein 6.1 g/dL (6.6-8.7)
[2022-03-17] MEDS: meropenem 500 MG in sodium chloride 0.9% (plus) 50 ML 100 MG IV ×3 (04:54→21:38)
[2022-03-17] MEDS: spironolactone 25 mg Tablet PO (06:03)
[2022-03-17] MEDS: ferrous sulfate EC 325 mg Tablet PO ×2 (06:03→16:57)
[2022-03-17 06:25] LABS: Glucose Point of Care 257 mg/dL (70-110)
[2022-03-17] MEDS: docusate sodium 10 mg/mL (5ml) Liq 100 MG PO (08:12)
[2022-03-17] MEDS: pantoprazole DR 40 mg Tablet PO ×2 (08:12→16:57)
[2022-03-17] MEDS: insulin lispro 100 unit/1 mL SUBCUT ×4 (08:12→21:38)
[2022-03-17] MEDS: bumetanide 1 mg Tablet PO (08:12)
[2022-03-17 11:29] LABS: Glucose Point of Care 274 mg/dL (70-110)
--- NOTE | 2022-03-17 14:43 | P.PN_ITS ---
Subjective Subjective: Patient was seen and examined this morning,blood sugar is better controlled as compared to yesterday. Afebrile,repeat blood culture is negative so far. Medications: Medication Review Details: Generic Name Dose Route Start Last Admin Trade Name Myra PRN Reason Stop Dose Admin Acetaminophen 500 mg 03/14/22 23:24 03/16/22 22:17 Acetaminophen 50 0 Mg Tablet PO 500 mg Q4H PRN Administration fever Bumetanide 1 mg 03/15/22 09:00 03/17/22 08:12 Bumetanide 1 Mg Tablet PO 1 mg DAILY RAMYA Administration Docusate Sodium 100 mg 03/16/22 18:00 03/17/22 08:12 Docusate Sodium 10 Mg/Ml (5ml) Liq PO 100 mg BID RAMYA Administration Ferrous Sulfate 325 mg 03/15/22 07:00 03/17/22 06:03 Ferrous Sulfate Ec 325 Mg Tablet PO 325 mg BID@07,17 RAMYA Administration Meropenem 500 mg/ Sodium 50 mls @ 100 mls/ hr 03/15/22 13:30 03/17/22 14:16 Chloride IV 100 mls/hr Q8H RAMYA Administration Pantoprazole Sodiu m 40 mg 03/15/22 09:00 03/17/22 08:[address] 40 Mg Tablet PO 40 mg BID RAMYA Administration Rifaximin 550 mg 03/15/22 09:00 03/17/22 08:27 Rifaximin 550 Mg Tablet PO 550 mg BID RAMYA Administration Protocol Spironolactone 25 mg 03/15/22 07:00 03/17/22 06:03 Spironolactone 2 5 Mg Tablet PO 25 mg DAILY@07 RAMYA Administration Tramadol HCl 50 mg 03/14/22 23:24 03/16/22 16:15 Tramadol 50 Mg T ablet PO 50 mg Q6H PRN Administration Pain Vitals/I&O/Wt Last Vital Signs Temp 98.1 F 03/17/22 12:00 Pulse 73 03/17/22 12:00 Resp 16 03/17/22 12:00 BP 99/47 03/17/22 12:00 Pulse Ox 96 03/17/22 12:00 O2 Del Method 03/17/22 07:48 03/16/22 03/17/22 03/17/22 22:59 06:59 14:59 Intake Total 50 / 580 930 / 1510 480 / 480 Output Total Balance 50 / 580 929 / 1509 480 / 480 Physical Exam Narrative: Patient is very hard of hearing, currently she has denied any chest pain shortness of breath Resp: COMMON NORMALS: normal respiratory effort, No retractions, No use of accessory muscles and clear to auscultation bilaterally EFFORT & INSPECTION: Yes symmetric chest movement AUSCULTATION: clear to auscultation bilaterally Cardio: COMMON NORMALS: regular rate, regular rhythm, S1 normal heart sound present, S2 normal heart sound present, No gallops present (Cardio), No murmurs present (Cardio), No rub (Cardio) and Peripheral pulses 2+ throughout RATE: regular rate RHYTHM: regular rhythm HEART SOUNDS: S1 normal heart sound present and S2 normal heart sound present PERIPHERAL PULSES: Peripheral pulses 2+ throughout GI: COMMON NORMALS: Normal to inspection, nondistended, normoactive bowel sounds present, Soft to palpation, non-tender, No hepatosplenomegaly present and no masses AUSCULTATION: Yes normoactive bowel sounds PALPATION: Yes Soft to palpation and Yes No hepatosplenomegaly present RECTAL EXAM: deferred Extremity: COMMON NORMALS: no clubbing, cyanosis or edema and no pedal edema Data 03/17/22 01:48 03/17/22 01:48 Micro: Microbiology 03/16/22 03:29 Blood Culture - Preliminary Blood NEGATIVE TO DATE 03/16/22 03:29 Blood Culture - Preliminary Blood NEGATIVE TO DATE 03/14/22 19:30 Urine Culture - Preliminary Urine,Clean Catch Gram Negative Rods A&P Assessment and plan (1) Type 2 diabetes mellitus: Qualifiers: Diabetes mellitus complication status: without complication Diabetes mellitus termite control service representative insulin use: with senior care use Qualified Code(s): E11.9 - Type 2 diabetes mellitus without complications; Z79.4 - long-term (current) use of insulin (2) Iron deficiency anemia secondary to blood loss (chronic): (3) Altered mental status: (4) Bacteremia: Plan 76-year-old female with past medical history of decompensated liver cirrhosis, LLOYD, recurrent ascites, history of recurrent GI bleed portal hypertension ,esophageal varices physical deconditioning AVM C. difficile colitis, diabetes coronary artery disease, cerebral aneurysm status post clipping, legally deaf, recurrent UTI, Was [facility] in from [facility] after she was about to fall, as the caregiver lost balance accountancy professor was helping her to go to the bathroom, she was also likely experiencing fever at [facility]. She was admitted for the management of Assessment: Acute metabolic encephalopathy Bacteremia UTI Chronic hyponatremia Chronic anemia decompensated liver cirrhosis, LLOYD, recurrent ascites, history of recurrent GI bleed H/O Portal hypertension , esophageal varices physical deconditioning AVM C. difficile colitis, diabetes coronary artery disease, cerebral aneurysm status post clipping JAMEE on CKD: Admission serum creatinine 1.2 , it appears that baseline serum creatinine is usually around 0.6-0.7: Low clinical suspicion for HRS. Fever Pseudohyponatremia Hyperglycemia Plan: CT head without contrast: No acute intracranial pathology X-ray chest: No infiltrates no effusion Blood culture is growin out of 4 bottle ESBL E. coli Urine Culture : ESBL E.Coli White blood cell count is 3.7, H&H is 7.3/23, platelet count is 102 Ammonia is 48, AST ALT is normal, alk phos is 220, total bilirubin is 1.3 Procalcitonin 0.52 Urinalysis is showing 4+ bacteria, 2+ leukocyte esterase, nitrite is negative, urine WBC 0-4 Given the fact that the blood culture is growing 1 out of 4 ESBL E. coli: For now will empirically cover her with meropenem. Follow repeat blood culture. No clinical concern for hepatic encephalopathy. Low clinical suspicion for SBP. Continue Bumex, spironolactone and rifaximin s/p 1 unit PRBC today: Monitor H&H Continue Lantus,SSI, monitor fingerstick glucose Continue Protonix twice daily Full code Cardiac diet Plan for today: Blood pressure is slightly soft today,will hold bumex for now,will give 500 cc ns bolus.continue I.V Abxs. Attestations Medical Necessity Statement*: patient needs to be in hospital for continued i.v abXS Coding Level of Care Code Acute Displayer Merchandise for deb Fwd Exam Expanded Problem Focused Diagnoses Type 2 diabetes mellitus E11.9; Z79.4 Diabetes mellitus complication status: without complication Diabetes mellitus senior care insulin use: with termite control service representative use Iron deficiency anemia secondary to blood loss (chronic) D50.0 Altered mental status R41.82 Bacteremia R78.81
[2022-03-17 17:21] LABS: Glucose Point of Care 210 mg/dL (70-110)
[2022-03-17] MEDS: sodium chloride 0.9% 500 ML IV (18:24)
[2022-03-17] MEDS: acetaminophen 500 mg Tablet PO (19:45)
[2022-03-17 20:50] LABS: Glucose Point of Care 276 mg/dL (70-110)
[2022-03-17] MEDS: insulin glargine 100 units/1 mL 30 UNIT SUBCUT (21:49)
[2022-03-18] VITALS (7 sets, daily range): BP systolic 103–117; BP diastolic 50–63; PULSE 68–76; RESP 13–22; TEMP 36.5–36.9; O2SAT 98–99
[2022-03-18] MEDS: TRAMadol 50 mg Tablet PO (00:56)
[2022-03-18] MEDS: meropenem 500 MG in sodium chloride 0.9% (plus) 50 ML 100 MG IV ×3 (05:35→21:24)
[2022-03-18] MEDS: ferrous sulfate EC 325 mg Tablet PO ×2 (06:00→17:05)
[2022-03-18] MEDS: spironolactone 25 mg Tablet PO (06:00)
[2022-03-18 06:15] LABS: Glucose Point of Care 115 mg/dL (70-110)
[2022-03-18 08:20] LABS: Basophils % 0.5 %; Eosinophils % 0.9 %; Hematocrit 26.8 % (37.0-47.0); Hemoglobin 8.5 g/dL (11.5-15.3); Lymphocytes # 0.5 10^3/uL (0.8-4.8); Lymphocytes % 23.1 %; Mean Corpuscular HGB Conc 31.7 g/dL (30.0-36.0); Mean Corpuscular Hemoglobin 27.4 pg (28.0-34.0); Mean Corpuscular Volume 86.5 fl (81-99); Mean Platelet Volume 9.4 fL (7.4-10.4); Monocytes # 0.3 10^3/uL (0.2-0.9); Monocytes % 11.6 %; Neutrophils # 1.37 10^3/uL (1.8-7.7); Neutrophils % 63.4 %; Nucleated Red Blood Cells % 0 %; Platelet Count 141 10^3/cmm (130-400); Red Cell Distribution Width 17.5 % (12.1-15.1); White Blood Count 2.2 10^3/uL (4.0-10.0)
[2022-03-18 08:49] LABS: Alanine Aminotransferase 12 U/L (0-33); Albumin Level 2.7 g/dL (3.5-5.2); Alkaline Phosphatase 198 U/L (35-105); Anion Gap 13.2 (5-19); Aspartate Amino Transferase 24 U/L (0-32); Blood Urea Nitrogen 32 mg/dL (8-23); Calcium 8.2 mg/dL (8.5-10.5); Carbon Dioxide 24 mmol/L (22-29); Chloride 101 mmol/L (98-107); Globulin 3.6 g/dL (1.3-4.6); Glucose 93 mg/dL (65-115); Osmolality Calculated 285 mOsm/kg (285-295); Potassium 4.2 mmol/L (3.5-5.1); Sodium 134 mmol/L (136-145); Total Bilirubin 0.5 mg/dL (0.15-1.2); Total Protein 6.3 g/dL (6.6-8.7)
[2022-03-18] MEDS: pantoprazole DR 40 mg Tablet PO ×2 (08:58→17:05)
[2022-03-18] MEDS: docusate sodium 10 mg/mL (5ml) Liq 100 MG PO (08:58)
[2022-03-18 11:28] LABS: Glucose Point of Care 227 mg/dL (70-110)
[2022-03-18] MEDS: insulin lispro 100 unit/1 mL SUBCUT ×2 (13:00→21:23)
[2022-03-18 17:04] LABS: Glucose Point of Care 133 mg/dL (70-110)
[2022-03-18] MEDS: acetaminophen 500 mg Tablet PO (17:15)
--- NOTE | 2022-03-18 18:40 | PM.PN ---
Subjective Subjective: Patient was seen and examined this morning, has been afebrile blood culture continue to be remain negative After 500 cc fluid bolus blood pressure has improved, will hold Bumex today. Medications: Medication Review Details: Generic Name Dose Route Start Last Admin Trade Name Freq PRN Reason Stop Dose Admin Acetaminophen 500 mg 03/14/22 23:24 03/18/22 17:15 Acetaminophen 50 0 Mg Tablet PO 500 mg Q4H PRN Administration fever Bumetanide 1 mg 03/15/22 09:00 03/17/22 08:12 Bumetanide 1 Mg Tablet PO 1 mg DAILY RAMYA Administration Docusate Sodium 100 mg 03/16/22 18:00 03/18/22 17:05 Docusate Sodium 10 Mg/Ml (5ml) Liq PO Not Given BID RAMYA Ferrous Sulfate 325 mg 03/15/22 07:00 03/18/22 17:05 Ferrous Sulfate Ec 325 Mg Tablet PO 325 mg BID@07,17 RAMYA Administration Meropenem 500 mg/ Sodium 50 mls @ 100 mls/ hr 03/15/22 13:30 03/18/22 13:31 Chloride IV Infused Q8H RAMYA Infusion Insulin Human Lisp ro 0 unit 03/17/22 18:00 03/18/22 17:05 Insulin Lispro 1 00 Unit/1 Ml SUBCUT Not Given WM&BEDTIME RAMYA Protocol Pantoprazole Sodiu m 40 mg 03/15/22 09:00 03/18/22 17:[address] 40 Mg Tablet PO 40 mg BID RAMYA Administration Rifaximin 550 mg 03/15/22 09:00 03/18/22 17:05 Rifaximin 550 Mg Tablet PO 550 mg BID RAMYA Administration Protocol Spironolactone 25 mg 03/15/22 07:00 03/18/22 06:00 Spironolactone 2 5 Mg Tablet PO 25 mg DAILY@07 RAMYA Administration Tramadol HCl 50 mg 03/14/22 23:24 03/18/22 00:56 Tramadol 50 Mg T ablet PO 50 mg Q6H PRN Administration Pain Vitals/I&O/Wt Last Vital Signs Temp 97.7 F 03/18/22 12:00 Pulse 73 03/18/22 12:00 Resp 14 03/18/22 12:00 BP 110/58 03/18/22 12:00 Pulse Ox 98 03/18/22 08:00 O2 Del Method 03/18/22 12:00 03/18/22 03/18/22 03/18/22 06:59 14:59 22:59 Intake Total 270 / 1830 290 / 290 Balance 270 / 1830 290 / 290 Physical Exam Resp: COMMON NORMALS: clear to auscultation bilaterally EFFORT & INSPECTION: Yes symmetric chest movement AUSCULTATION: clear to auscultation bilaterally Cardio: COMMON NORMALS: regular rate, regular rhythm, S1 normal heart sound present, S2 normal heart sound present, No gallops present (Cardio), No murmurs present (Cardio), No rub (Cardio) and Peripheral pulses 2+ throughout RATE: regular rate RHYTHM: regular rhythm HEART SOUNDS: S1 normal heart sound present and S2 normal heart sound present PERIPHERAL PULSES: Peripheral pulses 2+ throughout GI: COMMON NORMALS: Normal to inspection, nondistended, normoactive bowel sounds present, Soft to palpation, non-tender, No hepatosplenomegaly present and no masses AUSCULTATION: Yes normoactive bowel sounds PALPATION: Yes Soft to palpation and Yes No hepatosplenomegaly present RECTAL EXAM: deferred Extremity: COMMON NORMALS: no clubbing, cyanosis or edema and no pedal edema Data 03/18/22 07:49 03/18/22 07:49 Micro: Microbiology 03/14/22 19:08 Blood Culture - Preliminary Blood Escherichia coli esbl 03/14/22 19:30 Urine Culture - Final Urine,Clean Catch Escherichia coli esbl A&P Assessment and plan (1) Type 2 diabetes mellitus: Qualifiers: Diabetes mellitus termite exterminator helper insulin use: with termite exterminator helper use Diabetes mellitus complication status: without complication Qualified Code(s): E11.9 - Type 2 diabetes mellitus without complications; Z79.4 - half-way (current) use of insulin (2) Iron deficiency anemia secondary to blood loss (chronic): (3) Altered mental status: (4) Bacteremia: Plan 76-year-old female with past medical history of decompensated liver cirrhosis, LLOYD, recurrent ascites, history of recurrent GI bleed portal hypertension ,esophageal varices physical deconditioning AVM C. difficile colitis, diabetes coronary artery disease, cerebral aneurysm status post clipping, legally deaf, recurrent UTI, Was brought in from detention after she was about to fall, as the caregiver lost balance touch up edger was helping her to go to the bathroom, she was also likely experiencing fever at detention. She was admitted for the management of Assessment: Acute metabolic encephalopathy Bacteremia UTI Chronic hyponatremia Chronic anemia decompensated liver cirrhosis, LLOYD, recurrent ascites, history of recurrent GI bleed H/O Portal hypertension , esophageal varices physical deconditioning AVM C. difficile colitis, diabetes coronary artery disease, cerebral aneurysm status post clipping JAMEE on CKD: Admission serum creatinine 1.2 , it appears that baseline serum creatinine is usually around 0.6-0.7: Low clinical suspicion for HRS. Fever Pseudohyponatremia Hyperglycemia Plan: CT head without contrast: No acute intracranial pathology X-ray chest: No infiltrates no effusion Blood culture is growin out of 4 bottle ESBL E. coli Urine Culture : ESBL E.Coli White blood cell count is 3.7, H&H is 7.3/23, platelet count is 102 Ammonia is 48, AST ALT is normal, alk phos is 220, total bilirubin is 1.3 Procalcitonin 0.52 Urinalysis is showing 4+ bacteria, 2+ leukocyte esterase, nitrite is negative, urine WBC 0-4 Given the fact that the blood culture is growing 1 out of 4 ESBL E. coli: For now will empirically cover her with meropenem. Follow repeat blood culture. No clinical concern for hepatic encephalopathy. Low clinical suspicion for SBP. Continue Bumex, spironolactone and rifaximin s/p 1 unit PRBC today: Monitor H&H Continue Lantus,SSI, monitor fingerstick glucose Continue Protonix twice daily Full code Cardiac diet Plan for today: Plan is to complete 5-day course of IV antibiotics, both urine culture and blood culture has grown ESBL E. coli, repeat blood culture remains negative, patient is clinically stable, I do not think she will need long-term IV antibiotics. Attestations Medical Necessity Statement*: Patient is in hospital for continued IV antibiotics. Coding Level of Care Code Acute Certified Phlebotomist for [facility] Diagnoses Type 2 diabetes mellitus E11.9; Z79.4 Diabetes mellitus intermediate insulin use: with intermediate use Diabetes mellitus complication status: without complication Iron deficiency anemia secondary to blood loss (chronic) D50.0 Altered mental status R41.82 Bacteremia R78.81
[2022-03-18 21:04] LABS: Glucose Point of Care 249 mg/dL (70-110)
[2022-03-18] MEDS: insulin glargine 100 units/1 mL 20 UNIT SUBCUT (21:36)
[2022-03-19] MEDS: acetaminophen 500 mg Tablet PO ×3 (01:24→21:28)
[2022-03-19 03:49] LABS: Basophils % 0.4 %; Eosinophils % 1.5 %; Hematocrit 27.6 % (37.0-47.0); Hemoglobin 8.5 g/dL (11.5-15.3); Lymphocytes # 0.6 10^3/uL (0.8-4.8); Lymphocytes % 21.5 %; Mean Corpuscular HGB Conc 30.8 g/dL (30.0-36.0); Mean Corpuscular Hemoglobin 26.7 pg (28.0-34.0); Mean Corpuscular Volume 86.8 fl (81-99); Mean Platelet Volume 9.4 fL (7.4-10.4); Monocytes # 0.3 10^3/uL (0.2-0.9); Monocytes % 12.3 %; Neutrophils # 1.67 10^3/uL (1.8-7.7); Neutrophils % 63.9 %; Nucleated Red Blood Cells % 0 %; Platelet Count 152 10^3/cmm (130-400); Red Blood Count 3.18 10^6/uL (4.1-5.3); Red Cell Distribution Width 17.4 % (12.1-15.1); White Blood Count 2.6 10^3/uL (4.0-10.0)
[2022-03-19 04:00] VITALS: BP 109/68; PULSE 80; RESP 17; TEMP 36.9; O2SAT 99
[2022-03-19 04:19] LABS: Alanine Aminotransferase 12 U/L (0-33); Albumin Level 2.7 g/dL (3.5-5.2); Alkaline Phosphatase 196 U/L (35-105); Anion Gap 13.2 (5-19); Aspartate Amino Transferase 24 U/L (0-32); Blood Urea Nitrogen 26 mg/dL (8-23); Calcium 8.5 mg/dL (8.5-10.5); Carbon Dioxide 22 mmol/L (22-29); Chloride 103 mmol/L (98-107); Globulin 3.3 g/dL (1.3-4.6); Glucose 66 mg/dL (65-115); Osmolality Calculated 281 mOsm/kg (285-295); Potassium 4.2 mmol/L (3.5-5.1); Sodium 134 mmol/L (136-145); Total Bilirubin 0.5 mg/dL (0.15-1.2)
[2022-03-19] MEDS: meropenem 500 MG in sodium chloride 0.9% (plus) 50 ML 100 MG IV ×3 (05:09→20:55)
[2022-03-19] MEDS: ferrous sulfate EC 325 mg Tablet PO ×2 (06:07→16:56)
[2022-03-19] MEDS: spironolactone 25 mg Tablet PO (06:07)
[2022-03-19 06:47] LABS: Glucose Point of Care 105 mg/dL (70-110)
[2022-03-19 08:00] VITALS: BP 121/61; PULSE 72; PULSE 75; RESP 16; TEMP 36.9; O2SAT 95; O2SAT 97
[2022-03-19] MEDS: pantoprazole DR 40 mg Tablet PO ×2 (09:23→16:56)
[2022-03-19 12:00] VITALS: BP 108/49; PULSE 70; RESP 16; TEMP 37.3; O2SAT 95
[2022-03-19 12:12] LABS: Glucose Point of Care 246 mg/dL (70-110)
[2022-03-19] MEDS: insulin lispro 100 unit/1 mL SUBCUT ×2 (12:37→16:56)
[2022-03-19 15:30] VITALS: BP 103/46; PULSE 70; RESP 16; TEMP 37.3; O2SAT 96
[2022-03-19 16:34] LABS: Glucose Point of Care 226 mg/dL (70-110)
--- NOTE | 2022-03-19 16:52 | PM.PN ---
Subjective Subjective: Patient was seen and examined this morning, am blood sugar is low, will dc bed time short acting insulin. Medications: Medication Review Details: Generic Name Dose Route Start Last Admin Trade Name Myra PRN Reason Stop Dose Admin Acetaminophen 500 mg 03/14/22 23:24 03/19/22 01:24 Acetaminophen 50 0 Mg Tablet PO 500 mg Q4H PRN Administration fever Docusate Sodium 100 mg 03/16/22 18:00 03/19/22 09:23 Docusate Sodium 10 Mg/Ml (5ml) Liq PO Not Given BID RAMYA Ferrous Sulfate 325 mg 03/15/22 07:00 03/19/22 06:07 Ferrous Sulfate Ec 325 Mg Tablet PO 325 mg BID@,17 RAMYA Administration Meropenem 500 mg/ Sodium 50 mls @ 100 mls/ hr 03/15/22 13:30 03/19/22 13:07 Chloride IV Infused Q8H RAMYA Infusion Insulin Human Lisp ro 0 unit 03/17/22 18:00 03/19/22 12:37 Insulin Lispro 1 00 Unit/1 Ml SUBCUT 8 unit WM&BEDTIME RAMYA Administration Protocol Pantoprazole Sodiu m 40 mg 03/15/22 09:00 03/19/22 09:[address] 40 Mg Tablet PO 40 mg BID RAMYA Administration Rifaximin 550 mg 03/15/22 09:00 03/19/22 09:23 Rifaximin 550 Mg Tablet PO 550 mg BID RAMYA Administration Protocol Spironolactone 25 mg 03/15/22 07:00 03/19/22 06:07 Spironolactone 2 5 Mg Tablet PO 25 mg DAILY@07 RAMYA Administration Vitals/I&O/Wt Last Vital Signs Temp 99.1 F 03/19/22 15:30 Pulse 70 03/19/22 15:30 Resp 16 03/19/22 15:30 BP 103/46 03/19/22 15:30 Pulse Ox 96 03/19/22 15:30 O2 Del Method 03/19/22 15:30 03/19/22 03/19/22 03/19/22 06:59 14:59 22:59 Intake Total 730 / 1670 530 / 530 Balance 730 / 1670 530 / 530 Physical Exam Narrative: Patient is very hard of hearing, currently she has denied any chest pain shortness of breath Resp: COMMON NORMALS: normal respiratory effort, No retractions, No use of accessory muscles and clear to auscultation bilaterally EFFORT & INSPECTION: Yes symmetric chest movement AUSCULTATION: clear to auscultation bilaterally Cardio: COMMON NORMALS: regular rate, regular rhythm, S1 normal heart sound present, S2 normal heart sound present, No gallops present (Cardio), No murmurs present (Cardio), No rub (Cardio) and Peripheral pulses 2+ throughout RATE: regular rate RHYTHM: regular rhythm HEART SOUNDS: S1 normal heart sound present and S2 normal heart sound present PERIPHERAL PULSES: Peripheral pulses 2+ throughout GI: COMMON NORMALS: Normal to inspection, nondistended, normoactive bowel sounds present, Soft to palpation, non-tender, No hepatosplenomegaly present and no masses AUSCULTATION: Yes normoactive bowel sounds PALPATION: Yes Soft to palpation and Yes No hepatosplenomegaly present RECTAL EXAM: deferred Extremity: COMMON NORMALS: no clubbing, cyanosis or edema and no pedal edema Data 03/19/22 02:53 03/19/22 02:53 Micro: Microbiology 03/14/22 19:08 Blood Culture - Preliminary Blood Escherichia coli esbl A&P Assessment and plan (1) Type 2 diabetes mellitus: Qualifiers: Diabetes mellitus director long term care insulin use: with director long term care use Diabetes mellitus complication status: without complication Qualified Code(s): E11.9 - Type 2 diabetes mellitus without complications; Z79.4 - half-way (current) use of insulin (2) Iron deficiency anemia secondary to blood loss (chronic): (3) Altered mental status: (4) Bacteremia: Plan 76-year-old female with past medical history of decompensated liver cirrhosis, LLOYD, recurrent ascites, history of recurrent GI bleed portal hypertension ,esophageal varices physical deconditioning AVM C. difficile colitis, diabetes coronary artery disease, cerebral aneurysm status post clipping, legally deaf, recurrent UTI, Was brought in from senior care after she was about to fall, as the caregiver lost balance dissolver operator was helping her to go to the bathroom, she was also likely experiencing fever at senior care. She was admitted for the management of Assessment: Acute metabolic encephalopathy Bacteremia UTI Chronic hyponatremia Chronic anemia decompensated liver cirrhosis, LLOYD, recurrent ascites, history of recurrent GI bleed H/O Portal hypertension , esophageal varices physical deconditioning AVM C. difficile colitis, diabetes coronary artery disease, cerebral aneurysm status post clipping JAMEE on CKD: Admission serum creatinine 1.2 , it appears that baseline serum creatinine is usually around 0.6-0.7: Low clinical suspicion for HRS. Fever Pseudohyponatremia Hyperglycemia Plan: CT head without contrast: No acute intracranial pathology X-ray chest: No infiltrates no effusion Blood culture is growin out of 4 bottle ESBL E. coli Urine Culture : ESBL E.Coli White blood cell count is 3.7, H&H is 7.3/23, platelet count is 102 Ammonia is 48, AST ALT is normal, alk phos is 220, total bilirubin is 1.3 Procalcitonin 0.52 Urinalysis is showing 4+ bacteria, 2+ leukocyte esterase, nitrite is negative, urine WBC 0-4 Given the fact that the blood culture is growing 1 out of 4 ESBL E. coli: For now will empirically cover her with meropenem. Follow repeat blood culture. No clinical concern for hepatic encephalopathy. Low clinical suspicion for SBP. Continue Bumex, spironolactone and rifaximin s/p 1 unit PRBC today: Monitor H&H Continue Lantus,SSI, monitor fingerstick glucose Continue Protonix twice daily Full code Cardiac diet Plan for today: Plan is to complete 5-day course of IV antibiotics, both urine culture and blood culture has grown ESBL E. coli, repeat blood culture remains negative, patient is clinically stable, I do not think she will need long-term IV antibiotics. Attestations Medical Necessity Statement*: patient needs to be in hospital for I.V ABxs Coding Level of Care Code Acute Force Variation Equipment Tender for [facility] Diagnoses Type 2 diabetes mellitus E11.9; Z79.4 Diabetes mellitus director long term care insulin use: with director long term care use Diabetes mellitus complication status: without complication Iron deficiency anemia secondary to blood loss (chronic) D50.0 Altered mental status R41.82 Bacteremia R78.81
[2022-03-19 20:00] VITALS: BP 105/48; PULSE 70; RESP 16; TEMP 37.2; O2SAT 97
[2022-03-19] MEDS: insulin glargine 100 units/1 mL 10 UNIT SUBCUT (20:04)
[2022-03-19 20:31] LABS: Glucose Point of Care 247 mg/dL (70-110)
[2022-03-20] VITALS (7 sets, daily range): BP systolic 114–136; BP diastolic 56–63; PULSE 65–79; RESP 15–18; TEMP 36.7–37.3; O2SAT 96–100
[2022-03-20 04:16] LABS: Basophils % 0.5 %; Eosinophils # 0.1 10^3/uL (0.0-0.8); Eosinophils % 4.2 %; Lymphocytes # 0.5 10^3/uL (0.8-4.8); Lymphocytes % 24.4 %; Mean Corpuscular HGB Conc 30.8 g/dL (30.0-36.0); Mean Corpuscular Hemoglobin 26.9 pg (28.0-34.0); Mean Corpuscular Volume 87.5 fl (81-99); Mean Platelet Volume 9.3 fL (7.4-10.4); Monocytes # 0.2 10^3/uL (0.2-0.9); Monocytes % 10.3 %; Neutrophils # 1.28 10^3/uL (1.8-7.7); Neutrophils % 60.1 %; Nucleated Red Blood Cells % 0 %; Platelet Count 137 10^3/cmm (130-400); Red Blood Count 2.97 10^6/uL (4.1-5.3); Red Cell Distribution Width 17.4 % (12.1-15.1); White Blood Count 2.1 10^3/uL (4.0-10.0)
[2022-03-20 04:36] LABS: Alanine Aminotransferase 13 U/L (0-33); Albumin Level 2.7 g/dL (3.5-5.2); Alkaline Phosphatase 219 U/L (35-105); Anion Gap 12.6 (5-19); Aspartate Amino Transferase 23 U/L (0-32); Blood Urea Nitrogen 20 mg/dL (8-23); Calcium 8.3 mg/dL (8.5-10.5); Carbon Dioxide 22 mmol/L (22-29); Chloride 102 mmol/L (98-107); Globulin 3.2 g/dL (1.3-4.6); Glucose 214 mg/dL (65-115); Osmolality Calculated 283 mOsm/kg (285-295); Potassium 4.6 mmol/L (3.5-5.1); Sodium 132 mmol/L (136-145); Total Bilirubin 0.4 mg/dL (0.15-1.2); Total Protein 5.9 g/dL (6.6-8.7)
[2022-03-20] MEDS: meropenem 500 MG in sodium chloride 0.9% (plus) 50 ML 100 MG IV ×3 (05:01→20:32)
[2022-03-20] MEDS: ferrous sulfate EC 325 mg Tablet PO ×2 (06:06→18:44)
[2022-03-20] MEDS: spironolactone 25 mg Tablet PO (06:07)
[2022-03-20 06:30] LABS: Glucose Point of Care 146 mg/dL (70-110)
[2022-03-20] MEDS: bumetanide 1 mg Tablet PO (08:51)
[2022-03-20] MEDS: insulin lispro 100 unit/1 mL SUBCUT ×3 (08:51→18:46)
[2022-03-20] MEDS: pantoprazole DR 40 mg Tablet PO ×2 (08:52→18:44)
[2022-03-20] MEDS: docusate sodium 10 mg/mL (5ml) Liq 100 MG PO (10:36)
[2022-03-20 11:45] LABS: Glucose Point of Care 235 mg/dL (70-110)
--- NOTE | 2022-03-20 16:54 | PM.PN ---
Subjective Subjective: Overall patient is doing better, no acute events reported last night. Medications: Medication Review Details: Generic Name Dose Route Start Last Admin Trade Name Myra PRN Reason Stop Dose Admin Acetaminophen 500 mg 03/14/22 23:24 03/19/22 21:28 Acetaminophen 50 0 Mg Tablet PO 500 mg Q4H PRN Administration fever Bumetanide 1 mg 03/20/22 09:00 03/20/22 08:51 Bumetanide 1 Mg Tablet PO 1 mg DAILY RAMYA Administration Ferrous Sulfate 325 mg 03/15/22 07:00 03/20/22 06:06 Ferrous Sulfate Ec 325 Mg Tablet PO 325 mg BID@ RAMYA Administration Meropenem 500 mg/ Sodium 50 mls @ 100 mls/ hr 03/15/22 13:30 03/20/22 15:41 Chloride IV Infused Q8H RAMYA Infusion Insulin Glargine 10 unit 03/19/22 21:00 03/19/22 20:04 Insulin Glargine 100 Units/1 Ml SUBCUT 10 unit BEDTIME RAMYA Administration Insulin Human Lisp ro 0 unit 03/19/22 18:00 03/20/22 12:10 Insulin Lispro 1 00 Unit/1 Ml SUBCUT 6 unit TIDWM RAMYA Administration Protocol Pantoprazole Sodiu m 40 mg 03/15/22 09:00 03/20/22 08:[address] 40 Mg Tablet PO 40 mg BID RAMYA Administration Rifaximin 550 mg 03/15/22 09:00 03/20/22 08:51 Rifaximin 550 Mg Tablet PO 550 mg BID RAMYA Administration Protocol Spironolactone 25 mg 03/15/22 07:00 03/20/22 06:07 Spironolactone 2 5 Mg Tablet PO 25 mg DAILY@07 RAMYA Administration Vitals/I&O/Wt Last Vital Signs Temp 98.8 F 03/20/22 16:00 Pulse 67 03/20/22 16:00 Resp 17 03/20/22 16:00 BP 118/57 03/20/22 16:00 Pulse Ox 100 03/20/22 16:00 O2 Del Method 03/20/22 11:31 03/20/22 03/20/22 03/20/22 06:59 14:59 22:59 Intake Total 380 / 1200 720 / 720 50 / 770 Balance 380 / 1200 720 / 720 50 / 770 Physical Exam Narrative: Patient is very hard of hearing, currently she has denied any chest pain shortness of breath Resp: COMMON NORMALS: clear to auscultation bilaterally EFFORT & INSPECTION: Yes symmetric chest movement AUSCULTATION: clear to auscultation bilaterally Cardio: COMMON NORMALS: regular rate, regular rhythm, S1 normal heart sound present, S2 normal heart sound present, No gallops present (Cardio), No murmurs present (Cardio), No rub (Cardio) and Peripheral pulses 2+ throughout RATE: regular rate RHYTHM: regular rhythm HEART SOUNDS: S1 normal heart sound present and S2 normal heart sound present PERIPHERAL PULSES: Peripheral pulses 2+ throughout GI: COMMON NORMALS: Normal to inspection, nondistended, normoactive bowel sounds present, Soft to palpation, non-tender, No hepatosplenomegaly present and no masses AUSCULTATION: Yes normoactive bowel sounds PALPATION: Yes Soft to palpation and Yes No hepatosplenomegaly present RECTAL EXAM: deferred Extremity: COMMON NORMALS: no clubbing, cyanosis or edema and no pedal edema Data 03/20/22 03:07 03/20/22 03:07 Micro: Microbiology 03/14/22 19:08 Blood Culture - Final Blood Escherichia coli esbl 03/14/22 19:16 Blood Culture - Final Blood NO GROWTH AFTER 5 DAYS A&P Assessment and plan (1) Type 2 diabetes mellitus: Qualifiers: Diabetes mellitus prison insulin use: with long term acute care registered nurse use Diabetes mellitus complication status: without complication Qualified Code(s): E11.9 - Type 2 diabetes mellitus without complications; Z79.4 - termite technician (current) use of insulin (2) Iron deficiency anemia secondary to blood loss (chronic): (3) Altered mental status: (4) Bacteremia: Plan 76-year-old female with past medical history of decompensated liver cirrhosis, LLOYD, recurrent ascites, history of recurrent GI bleed portal hypertension ,esophageal varices physical deconditioning AVM C. difficile colitis, diabetes coronary artery disease, cerebral aneurysm status post clipping, legally deaf, recurrent UTI, Was brought in from group home after she was about to fall, as the caregiver lost balance community resource consultant was helping her to go to the bathroom, she was also likely experiencing fever at group home. She was admitted for the management of Assessment: Acute metabolic encephalopathy: Resolved Bacteremia UTI Chronic hyponatremia Chronic anemia decompensated liver cirrhosis, LLOYD, recurrent ascites, history of recurrent GI bleed H/O Portal hypertension , esophageal varices physical deconditioning AVM C. difficile colitis, diabetes coronary artery disease, cerebral aneurysm status post clipping JAMEE on CKD: Admission serum creatinine 1.2 , it appears that baseline serum creatinine is usually around 0.6-0.7: Low clinical suspicion for HRS. Fever Pseudohyponatremia Hyperglycemia Plan: CT head without contrast: No acute intracranial pathology X-ray chest: No infiltrates no effusion Blood culture is growin out of 4 bottle ESBL E. coli Repeat blood cultures negative: Urine Culture : ESBL E.Coli White blood cell count is 3.7, H&H is 7.3/23, platelet count is 102 Ammonia is 48, AST ALT is normal, alk phos is 220, total bilirubin is 1.3 Procalcitonin 0.52 Urinalysis is showing 4+ bacteria, 2+ leukocyte esterase, nitrite is negative, urine WBC 0-4 Given the fact that the blood culture is growing 1 out of 4 ESBL E. coli: For now will empirically cover her with meropenem. Follow repeat blood culture. No clinical concern for hepatic encephalopathy. Low clinical suspicion for SBP. Continue Bumex, spironolactone and rifaximin s/p 1 unit PRBC today: Monitor H&H Continue Lantus,SSI, monitor fingerstick glucose Continue Protonix twice daily Full code Cardiac diet Plan for today: Plan is to complete 5-day course of IV antibiotics, both urine culture and blood culture has grown ESBL E. coli, repeat blood culture remains negative, patient is clinically stable, I do not think she will need long-term IV antibiotics. Attestations Medical Necessity Statement*: Patient is in hospital for continued IV antibiotic. Coding Level of Care Code Acute Communication Equipment Mechanic for [facility] Fwd Diagnoses Type 2 diabetes mellitus E11.9; Z79.4 Diabetes mellitus long term acute care registered nurse insulin use: with long term acute care registered nurse use Diabetes mellitus complication status: without complication Iron deficiency anemia secondary to blood loss (chronic) D50.0 Altered mental status R41.82 Bacteremia R78.81
[2022-03-20 16:55] LABS: Glucose Point of Care 241 mg/dL (70-110)
[2022-03-20] MEDS: docusate sodium 100 mg Capsule PO (18:44)
[2022-03-20] MEDS: acetaminophen 500 mg Tablet PO (20:33)
[2022-03-20] MEDS: insulin glargine 100 units/1 mL 10 UNIT SUBCUT (20:33)
[2022-03-20 20:46] LABS: Glucose Point of Care 267 mg/dL (70-110)
[2022-03-21] VITALS: BP 137/63; PULSE 67; RESP 17; TEMP 36.9; O2SAT 98
[2022-03-21 03:59] LABS: Basophils % 0.8 %; Eosinophils # 0.1 10^3/uL (0.0-0.8); Eosinophils % 4.2 %; Hematocrit 27.5 % (37.0-47.0); Hemoglobin 8.2 g/dL (11.5-15.3); Lymphocytes # 0.6 10^3/uL (0.8-4.8); Lymphocytes % 22.6 %; Mean Corpuscular HGB Conc 29.8 g/dL (30.0-36.0); Mean Corpuscular Hemoglobin 26.8 pg (28.0-34.0); Mean Corpuscular Volume 89.9 fl (81-99); Mean Platelet Volume 9.3 fL (7.4-10.4); Monocytes # 0.3 10^3/uL (0.2-0.9); Monocytes % 11.9 %; Neutrophils # 1.55 10^3/uL (1.8-7.7); Neutrophils % 59.4 %; Nucleated Red Blood Cells % 0 %; Platelet Count 146 10^3/cmm (130-400); Red Blood Count 3.06 10^6/uL (4.1-5.3); Red Cell Distribution Width 17.3 % (12.1-15.1); White Blood Count 2.6 10^3/uL (4.0-10.0)
[2022-03-21 04:00] VITALS: BP 125/58; PULSE 84; RESP 16; TEMP 36.8; O2SAT 100
[2022-03-21 04:17] LABS: Alanine Aminotransferase 12 U/L (0-33); Albumin Level 2.7 g/dL (3.5-5.2); Alkaline Phosphatase 209 U/L (35-105); Anion Gap 12.1 (5-19); Aspartate Amino Transferase 22 U/L (0-32); Blood Urea Nitrogen 19 mg/dL (8-23); Calcium 8.4 mg/dL (8.5-10.5); Carbon Dioxide 24 mmol/L (22-29); Chloride 99 mmol/L (98-107); Globulin 3.4 g/dL (1.3-4.6); Glucose 171 mg/dL (65-115); Osmolality Calculated 278 mOsm/kg (285-295); Potassium 4.1 mmol/L (3.5-5.1); Sodium 131 mmol/L (136-145); Total Bilirubin 0.5 mg/dL (0.15-1.2); Total Protein 6.1 g/dL (6.6-8.7)
[2022-03-21] MEDS: meropenem 500 MG in sodium chloride 0.9% (plus) 50 ML 100 MG IV (05:02)
[2022-03-21] MEDS: ferrous sulfate EC 325 mg Tablet PO ×2 (06:01→17:06)
[2022-03-21] MEDS: spironolactone 25 mg Tablet PO (06:01)
[2022-03-21 06:24] LABS: Glucose Point of Care 118 mg/dL (70-110)
[2022-03-21 08:00] VITALS: BP 124/54; PULSE 64; PULSE 70; RESP 16; RESP 18; TEMP 36.9; O2SAT 96; O2SAT 97
[2022-03-21] MEDS: pantoprazole DR 40 mg Tablet PO ×2 (08:00→17:07)
[2022-03-21] MEDS: bumetanide 1 mg Tablet PO (08:00)
[2022-03-21] MEDS: docusate sodium 100 mg Capsule PO ×2 (08:00→17:07)
[2022-03-21] MEDS: acetaminophen 500 mg Tablet PO ×2 (08:00→17:44)
--- NOTE | 2022-03-21 09:31 | CT_ITS ---
WS: [id number] CT ABDOMEN PELVIS TECHNIQUE: Noncontrast CT of the abdomen and pelvis with coronal and sagittal reformatted images. CLINICAL INFORMATION: abd pain and stone COMPARISON: CT June 28, 2021 DLP: 614.[address] scans at [facility] use at least one of these dose optimization techniques: automated e xposure control; mA and/or kV adjustment per patient size (includes targeted exams where dose is matc hed to clinical indication); or iterative reconstruction. FINDINGS: Marked cirrhotic configuration to the liver with nodular contour. Splenomegaly. Small esoph ageal hiatal hernia. Dense splenic artery calcification. Prior cholecystectomy. Cardiomegaly. Coronar y calcification. Bibasilar atelectasis. Adrenal glands are normal. Normal caliber noncontrast abdomin al aorta. Prior appendectomy. Prior hysterectomy. No hydronephrosis in either kidney. No obstructing renal or u reteral calculi. Pelvic phleboliths. Urine distended bladder. Rectosigmoid constipation. Sigmoid dive rticulosis. No evidence of acute diverticulitis. Moderate transverse colon and descending colon const ipation. Incidental fat-containing LEFT inguinal hernia. RIGHT adnexal cystic lesion measuring 3.4 x 2.8 cm. T his can be followed up with ultrasound. Prior postoperative changes intramedullary teagan RIGHT femur with extensive plate and screw fixation RI GHT pelvis and ischium. CT/CT kidney stone [id number] IMPRESSION: 1. Cirrhotic liver with splenomegaly. No ascites. 2. Slight bibasilar atelectasis. 3. Mild to moderate transverse colon, LEFT colon, and rectosigmoid constipatio n 4. Urine distended bladder. 5. RIGHT adnexal low-attenuation cystic lesion measuring 3.4 x 2.9 cm. This ca n be followed up with ultrasound. 6. No other acute findings.
--- NOTE | 2022-03-21 10:11 | PC.SOCIAL ---
Imm update Imm updated at bedside, copy of page 2 provided. Patient verbalized understanding. Copy in chart initialed, dated and timed.
[2022-03-21] MEDS: ertapenem 1,000 MG in sodium chloride 0.9% (plus) 100 ML 200 MG IV (10:21)
[2022-03-21 11:10] LABS: Glucose Point of Care 247 mg/dL (70-110)
[2022-03-21 12:00] VITALS: BP 127/57; PULSE 66; RESP 16; TEMP 36.8; O2SAT 98
[2022-03-21] MEDS: insulin lispro 100 unit/1 mL SUBCUT ×2 (12:51→17:10)
[2022-03-21 16:00] VITALS: BP 108/50; PULSE 63; RESP 16; TEMP 36.8; O2SAT 98
--- NOTE | 2022-03-21 17:06 | PM.PN ---
Subjective Subjective: Patient is extremely tearful at exam. States that she wants to get out of the hospital and go back to [place]. Offers no other new complaints today. Denies any pain. Afebrile. Medications: Reviewed: Yes Medication Review Details: Generic Name Dose Route Start Last Admin Trade Name Myra PRN Reason Stop Dose Admin Acetaminophen 500 mg 03/14/22 23:24 03/19/22 21:28 Acetaminophen 50 0 Mg Tablet PO 500 mg Q4H PRN Administration fever Bumetanide 1 mg 03/20/22 09:00 03/20/22 08:51 Bumetanide 1 Mg Tablet PO 1 mg DAILY RAMYA Administration Ferrous Sulfate 325 mg 03/15/22 07:00 03/20/22 06:06 Ferrous Sulfate Ec 325 Mg Tablet PO 325 mg BID@ RAMYA Administration Meropenem 500 mg/ Sodium 50 mls @ 100 mls/ hr 03/15/22 13:30 03/20/22 15:41 Chloride IV Infused Q8H RAMYA Infusion Insulin Glargine 10 unit 03/19/22 21:00 03/19/22 20:04 Insulin Glargine 100 Units/1 Ml SUBCUT 10 unit BEDTIME RAMYA Administration Insulin Human Lisp ro 0 unit 03/19/22 18:00 03/20/22 12:10 Insulin Lispro 1 00 Unit/1 Ml SUBCUT 6 unit TIDWM RAMYA Administration Protocol Pantoprazole Sodiu m 40 mg 03/15/22 09:00 03/20/22 08:[address] 40 Mg Tablet PO 40 mg BID RAMYA Administration Rifaximin 550 mg 03/15/22 09:00 03/20/22 08:51 Rifaximin 550 Mg Tablet PO 550 mg BID RAMYA Administration Protocol Spironolactone 25 mg 03/15/22 07:00 03/20/22 06:07 Spironolactone 2 5 Mg Tablet PO 25 mg DAILY@07 RAMYA Administration Vitals/I&O/Wt Last Vital Signs Temp 98.2 F 03/21/22 12:00 Pulse 66 03/21/22 12:00 Resp 16 03/21/22 12:00 BP 127/57 03/21/22 12:00 Pulse Ox 98 03/21/22 12:00 O2 Del Method 03/21/22 12:00 03/21/22 03/21/22 03/21/22 06:59 14:59 22:59 Intake Total 530 / 1950 760 / 760 Balance 530 / 1950 760 / 760 Physical Exam Narrative: General: No acute distress, AO x3 HEENT: PERRLA, pupils bilaterally equal and reactive, pallors not present Chest: Normal vesicular breath sounds, no added sounds, equal good air entry bilaterally CVS: S1-S2 regular, no murmurs, no tachycardia, no gallops, no rubs Abdomen: Soft, nontender, no organomegaly, bowel sounds present Neuro: No focal deficits, no facial deformity, AO x3, power 5/5 in all limbs Data 03/21/22 02:00 03/21/22 02:00 Micro: Microbiology 03/16/22 03:29 Blood Culture - Final Blood NO GROWTH AFTER 5 DAYS 03/16/22 03:29 Blood Culture - Final Blood NO GROWTH AFTER 5 DAYS 03/14/22 19:08 Blood Culture - Final Blood Escherichia coli esbl A&P Assessment and plan (1) Type 2 diabetes mellitus: Qualifiers: Diabetes mellitus technician terminal and repeater insulin use: with penitentiary use Diabetes mellitus complication status: without complication Qualified Code(s): E11.9 - Type 2 diabetes mellitus without complications; Z79.4 - [facility] (current) use of insulin (2) Iron deficiency anemia secondary to blood loss (chronic): (3) Altered mental status: (4) Bacteremia: Plan 76-year-old female with past medical history of decompensated liver cirrhosis, LLOYD, recurrent ascites, history of recurrent GI bleed portal hypertension ,esophageal varices physical deconditioning AVM C. difficile colitis, diabetes coronary artery disease, cerebral aneurysm status post clipping, legally deaf, recurrent UTI, Was brought in from [facility] after she was about to fall, as the caregiver lost balance glass decorator was helping her to go to the bathroom, she was also likely experiencing fever at [facility]. She was admitted for the management of Assessment: Acute metabolic encephalopathy: Resolved Bacteremia UTI Chronic hyponatremia Chronic anemia decompensated liver cirrhosis, LLOYD, recurrent ascites, history of recurrent GI bleed H/O Portal hypertension , esophageal varices physical deconditioning AVM C. difficile colitis, diabetes coronary artery disease, cerebral aneurysm status post clipping JAMEE on CKD: Admission serum creatinine 1.2 , it appears that baseline serum creatinine is usually around 0.6-0.7: Low clinical suspicion for HRS. Fever Pseudohyponatremia Hyperglycemia Plan: CT head without contrast: No acute intracranial pathology X-ray chest: No infiltrates no effusion Blood culture is growin out of 4 bottle ESBL E. coli Repeat blood cultures negative: Urine Culture : ESBL E.Coli White blood cell count is 3.7, H&H is 7.3/23, platelet count is 102 Ammonia is 48, AST ALT is normal, alk phos is 220, total bilirubin is 1.3 Procalcitonin 0.52 Urinalysis is showing 4+ bacteria, 2+ leukocyte esterase, nitrite is negative, urine WBC 0-4 Given the fact that the blood culture is growing 1 out of 4 ESBL E. coli: For now will empirically cover her with meropenem. Follow repeat blood culture. No clinical concern for hepatic encephalopathy. Low clinical suspicion for SBP. Continue Bumex, spironolactone and rifaximin s/p 1 unit PRBC today: Monitor H&H Continue Lantus,SSI, monitor fingerstick glucose Continue Protonix twice daily Full code Cardiac diet Plan for today: Change IV meropenem to IV ertapenem in anticipation of discharge. We will plan to complete total 10 days of treatment for ESBL E. coli bacteremia. Awaiting disposition planning, need confirmation from [facility]-way prior to transferring back. Attestations Medical Necessity Statement*: Ongoing need for IV antibiotics, disposition planning. Coding Level of Care Code Acute Beauty Culturist for [facility] Fwd Diagnoses Type 2 diabetes mellitus E11.9; Z79.4 Diabetes mellitus penitentiary insulin use: with penitentiary use Diabetes mellitus complication status: without complication Iron deficiency anemia secondary to blood loss (chronic) D50.0 Altered mental status R41.82 Bacteremia R78.81
[2022-03-21 17:19] LABS: Glucose Point of Care 144 mg/dL (70-110)
[2022-03-21 20:00] VITALS: BP 161/93; PULSE 66; PULSE 72; RESP 16; RESP 19; TEMP 37.4; O2SAT 97; O2SAT 98
[2022-03-21] MEDS: insulin glargine 100 units/1 mL 10 UNIT SUBCUT (20:59)
[2022-03-21 21:29] LABS: Glucose Point of Care 347 mg/dL (70-110)
[2022-03-22] VITALS: BP 123/64; PULSE 65; RESP 18; TEMP 36.7; O2SAT 99
[2022-03-22 03:18] VITALS: BP 127/68; PULSE 65; RESP 18; TEMP 36.4; O2SAT 98
[2022-03-22] MEDS: acetaminophen 500 mg Tablet PO (06:09)
[2022-03-22] MEDS: ferrous sulfate EC 325 mg Tablet PO (06:13)
[2022-03-22] MEDS: spironolactone 25 mg Tablet PO (06:15)
[2022-03-22 06:18] LABS: Glucose Point of Care 144 mg/dL (70-110)
[2022-03-22 08:00] VITALS: BP 130/67; PULSE 63; RESP 16; TEMP 36.8; O2SAT 97
[2022-03-22] MEDS: insulin lispro 100 unit/1 mL SUBCUT (08:37)
[2022-03-22] MEDS: pantoprazole DR 40 mg Tablet PO (08:40)
[2022-03-22] MEDS: docusate sodium 100 mg Capsule PO (08:40)
[2022-03-22] MEDS: bumetanide 1 mg Tablet PO (08:40)
[2022-03-22 09:20] VITALS: PULSE 71; RESP 16; O2SAT 96
--- NOTE | 2022-03-22 11:11 | PM.DCS ---
Discharge Providers Date of Admission: 03/15/22 14:17 Date of Discharge: March 22, 2022 Attending Provider at Admission: Maritza Fitzpatrick MD Attending Provider at Discharge: Olga Summers MD Primary Care Provider: Che Holt DO Diagnoses at Discharge Discharge Diagnosis (1) Type 2 diabetes mellitus: Status: Acute Qualifiers: Diabetes mellitus longterm insulin use: with longterm use Diabetes mellitus complication status: without complication Qualified Code(s): E11.9 - Type 2 diabetes mellitus without complications; Z79.4 - prison (current) use of insulin (2) Iron deficiency anemia secondary to blood loss (chronic): Status: Acute (3) Altered mental status: Status: Acute (4) Bacteremia: Status: Acute Reason for Visit Reason for Visit: FEVER/ AMS Hospital Course Hospital Course Martha Moore is a 75 year old female with a past medical history of LLOYD, liver cirrhosis, recurrent ascites, history of recurrent GI bleed, portal hypertension, history of esophageal varices, history of deconditioning, history of AV malformations, history of C. difficile colitis, brought to the hospital with fever and a fall at [facility]. Concern for UTI upon admission. Eventually blood and urine cultures revealed ESBL E. coli. She was treated with meropenem during the course of her admission here, being transitioned to ertapenem at discharge. Recommended course is for total of 10 days (03/16-03/25). She received ertapenem today in the hospital. Will complete 3 remaining doses at SNF Physical Exam Narrative: General: No acute distress, AO x3 HEENT: PERRLA, pupils bilaterally equal and reactive, pallors not present Chest: Normal vesicular breath sounds, no added sounds, equal good air entry bilaterally CVS: S1-S2 regular, no murmurs, no tachycardia, no gallops, no rubs Abdomen: Soft, nontender, no organomegaly, bowel sounds present Neuro: No focal deficits, no facial deformity, AO x3, power 5/5 in all limbs Discharge Data Studies Completed and Pending Completed Studies During Hospitalization Category Date Time Status CT abdomen renal stone [CT kidney stone [id number]] Routine Cat Scan 03/21/22 09:[address] head wo con* [id number] Stat Cat Scan 03/14/22 18:29 Completed XR chest 1V portable [id number] Stat Exams 03/14/22 18:29 Completed Pending at discharge Category Date Time Status SARS Covid-2 Antigen Routine Lab 03/22/22 11:04 Uncollected Radiology Impressions Chest X-Ray 03/14/22 18:29 IMPRESSION: 1. No acute findings. 2. No significant change has occurred from 11/30/2021. 3. Only minimal bibasilar atelectasis or scarring. Head CT 03/14/22 18:29 IMPRESSION: 1. No acute intracranial abnormality. 2. Multiple chronic and postop findings, similar to 11/29/2021 exam. Abdomen/Pelvis CT 03/21/22 09:31 IMPRESSION: 1. Cirrhotic liver with splenomegaly. No ascites. 2. Slight bibasilar atelectasis. 3. Mild to moderate transverse colon, LEFT colon, and rectosigmoid constipation 4. Urine distended bladder. 5. RIGHT adnexal low-attenuation cystic lesion measuring 3.4 x 2.9 cm. This can be followed up with ultrasound. 6. No other acute findings. Laboratory Results WBC 2.6 10^3/uL (4.0-10.0) L 03/21/22 02:00 RBC 3.06 10^6/uL (4.1-5.3) L 03/21/22 02:00 Hgb 8.2 g/dL (11.5-15.3) L 03/21/22 02:00 Hct 27.5 % (37.0-47.0) L 03/21/22 02:00 MCV 89.9 fl (81-99) 03/21/22 02:00 MCH 26.8 pg (28.0-34.0) L 03/21/22 02:00 MCHC 29.8 g/dL (30.0-36.0) L 03/21/22 02:00 RDW 17.3 % (12.1-15.1) H 03/21/22 02:00 Plt Count 146 10^3/cmm (130-400) 03/21/22 02:00 MPV 9.3 fL (7.4-10.4) 03/21/22 02:00 Neut % (Auto) 59.4 % 03/21/22 02:00 Lymph % (Auto) 22.6 % 03/21/22 02:00 [place] % (Auto) 11.9 % 03/21/22 02:00 Eos % (Auto) 4.2 % 03/21/22 02:00 Baso % (Auto) 0.8 % 03/21/22 02:00 Neut # (Auto) 1.55 10^3/uL (1.8-7.7) L 03/21/22 02:00 Lymph # (Auto) 0.6 10^3/uL (0.8-4.8) L 03/21/22 02:00 [place] # (Auto) 0.3 10^3/uL (0.2-0.9) 03/21/22 02:00 Eos # (Auto) 0.1 10^3/uL (0.0-0.8) 03/21/22 02:00 Baso # (Auto) 0.0 10^3/uL (0.0-0.1) 03/21/22 02:00 Nucleated RBC % (auto) 0 % 03/21/22 02:00 Nucleated RBCs # 0.0 /100WBC 03/21/22 02:00 PT 16.80 SECONDS (12.1-14.9) H 03/14/22 18:16 INR 1.33 (0.8-1.2) H 03/14/22 18:16 Sodium 131 mmol/L (136-145) L 03/21/22 02:00 Potassium 4.1 mmol/L (3.5-5.1) 03/21/22 02:00 Chloride 99 mmol/L (98-107) 03/21/22 02:00 Carbon Dioxide 24 mmol/L (22-29) 03/21/22 02:00 Anion Gap 12.1 (5-19) 03/21/22 02:00 BUN 19 mg/dL (8-23) 03/21/22 02:00 Creatinine 0.7 mg/dL (0.5-0.9) 03/21/22 02:00 GFR Calculation Not Reportable 03/21/22 02:00 Glucose 171 mg/dL (65-115) H 03/21/22 02:00 POC Glucose 144 mg/dL (70-110) H 03/22/22 06:13 Calculated Osmolality 278 mOsm/kg (285-295) L 03/21/22 02:00 Lactate 1.3 mmol/L (0.5-2.2) 03/16/22 03:29 Calcium 8.4 mg/dL (8.5-10.5) L 03/21/22 02:00 Phosphorus 3.4 mg/dL (2.5-4.5) 03/15/22 04:15 Magnesium 1.8 mg/dL (1.7-2.3) 03/15/22 04:15 Total Bilirubin 0.5 mg/dL (0.15-1.2) 03/21/22 02:00 AST 22 U/L (0-32) 03/21/22 02:00 ALT 12 U/L (0-33) 03/21/22 02:00 Alkaline Phosphatase 209 U/L (35-105) H 03/21/22 02:00 Ammonia 48 umol/L (11-51) 03/14/22 20:41 Total Protein 6.1 g/dL (6.6-8.7) L 03/21/22 02:00 Albumin 2.7 g/dL (3.5-5.2) L 03/21/22 02:00 Globulin 3.4 g/dL (1.3-4.6) 03/21/22 02:00 Procalcitonin 0.52 ng/mL (0-0.5) H 03/14/22 18:16 Urine Color Yellow (Yellow) 03/14/22 19: Urine Appearance Clear (CLEAR) 03/14/22 19:30 Urine pH 7 (5-7) 03/14/22 19:30 Ur Specific [place] 1.005 (1.005-1.030) 03/14/22 19:30 Urine Protein Neg (Negative) 03/14/22 19: Urine Glucose (UA) Norm (Normal) 03/14/22 19: Urine Ketones Negative (Negative) 03/14/22 19: Urine Blood Neg (Negative) 03/14/22 19: Urine Nitrate Negative (Negative) 03/14/22 19: Urine Bilirubin Neg (Negative) 03/14/22 19: Urine Urobilinogen Norm mg/dL (Negative) 03/14/22 19:30 Ur Leukocyte Esterase 2+ (Negative) H 03/14/22 19:30 Urine RBC None /hpf (0-2) 03/14/22 19:30 Urine WBC 0-4 /hpf (0-5) H 03/14/22 19:30 Ur Squamous Epith Cells 0-4 /hpf (0-5) H 03/14/22 19:30 Amorphous Sediment Not Reportable 03/14/22 19:30 Urine Bacteria 4+ /hpf (NONE) H 03/14/22 19:30 Influenza Type A Ag negative (Negative) 03/14/22 19:10 Influenza Type B Ag negative (Negative) 03/14/22 19:10 SARS-CoV-2 Ag (Rapid) Negative (Negative) 03/14/22 19:10 Blood Type O Positive 03/14/22 09:58 Rho(D) Type Positive 03/14/22 09:58 Antibody Screen Negative 03/14/22 09:58 Crossmatch See Detail 03/14/22 09:58 Vitals Last Vital Signs Temp 98.2 F 03/22/22 08:00 Pulse 71 03/22/22 09:20 Resp 16 03/22/22 09:20 BP 130/67 03/22/22 08:00 Pulse Ox 96 03/22/22 09:20 O2 Del Method 03/22/22 08:00 Discharge Plan Discharge Patient Disposition: Xfer SNF Condition: Stable Prescriptions: Continued ferrous sulfate 325 mg (65 mg iron) Tablet 325 mg PO BID@, insulin lispro [Humalog KwikPen Insulin] 100 unit/mL Insulin Pen See Rx Instructions .ROUTE .COMPLEX Rx Instructions: sliding scale before meals and at bedtime 140-175=2 units 176-200=3 units 201-250=5 units 251-299=7 units 300 plus =9 units mirtazapine 7.5 mg tablet 7.5 mg PO BEDTIME@19 acetaminophen 500 mg Tablet 1,000 mg PO Q6H PRN (Reason: Pain) magnesium hydroxide [Milk of Magnesia] 400 mg/5 mL Suspension 30 ml PO DAILY PRN (Reason: Constipation) bumetanide 1 mg Tablet 1 mg PO DAILY Qty: 60 0RF pantoprazole 40 mg Tablet,Delayed Release (Dr/Ec) 40 mg PO BID Xifaxan 550 mg Tablet 550 mg PO BID insulin glargine [Lantus Solostar U-100 Insulin] 100 unit/mL (3 mL) insulin pen 24 unit SUBCUT DAILY@08 oxycodone 5 mg tablet 5 mg PO Q6H PRN (Reason: pain) Qty: 28 0RF spironolactone 25 mg tablet 25 mg PO DAILY@07 Qty: 30 0RF Dulcolax (bisacodyl) 10 mg Suppository 10 mg [place] DAILY PRN (Reason: Constipation) Fleet Enema 19-7 gram/118 mL Enema 118 ml WA DAILY PRN (Reason: Constipation) Women's 50 Plus Daily Formula 400 mcg-500 mg calcium-20 mcg Tablet 1 tab PO DAILY ondansetron HCl 8 mg Tablet 8 mg PO Q8H PRN (Reason: Nausea) tramadol 50 mg Tablet 50 mg PO Q6H PRN (Reason: Pain) Discharge Orders: Discharge Order (Routine); Ordered 03/22/22 Ordered By: Olga Summers Referrals: [facility] [Outside] Che Holt DO [Primary Care Provider] - 1 week Patient Instructions: Levofloxacin (By mouth), Encephalopathy (GEN), Opioid Safety Discharge Attestations Time Spent in Discharge Care*: greater than 30 min Status at Discharge: Cognitive status at discharge: cognitively intact, Behavioral status at discharge: cooperative, Quality Metrics Clinical Quality Measures [ No reported AMI, CVA or VTE this stay] Coding Level of Care Code Acute Chg FW DC note Diagnoses Type 2 diabetes mellitus E11.9; Z79.4 Diabetes mellitus longterm insulin use: with longterm use Diabetes mellitus complication status: without complication Iron deficiency anemia secondary to blood loss (chronic) D50.0 Altered mental status R41.82 Bacteremia R78.81
[2022-03-22 11:14] LABS: Glucose Point of Care 279 mg/dL (70-110)
[2022-03-22] MEDS: ertapenem 1,000 MG in sodium chloride 0.9% (plus) 100 ML 200 MG IV (11:42)
[2022-03-22 12:00] VITALS: BP 116/69; PULSE 75; RESP 16; TEMP 36.7; O2SAT 97
[2022-03-22 12:31] LABS: SARS Covid-2 Antigen negative (Negative)
[2022-03-22 13:42] VITALS: BP 116/69; PULSE 75; RESP 16; TEMP 36.7; O2SAT 97
== END 2022-03-22 13:45 | disposition skilled nursing facility (03) | DRG 689 ==
LOC: ER 20:51 → MEDSURG 21:27
PROVIDERS: Internal Medicine; Admitting Provider Internal Medicine; Emergency Provider Emergency Medicine; PCP Family Medicine; Visit Provider Student in an Organized Health Care Education/Training Program
DX: N39.0 Urinary tract infection, site not specified (principal); G93.41 Metabolic encephalopathy; K76.6 Portal hypertension; I85.10 Secondary esophageal varices without bleeding; E87.1 Hypo-osmolality and hyponatremia; B96.20 Unspecified Escherichia coli [E. coli] as the cause of diseases classified elsewhere; E11.65 Type 2 diabetes mellitus with hyperglycemia; D50.0 Iron deficiency anemia secondary to blood loss (chronic); K75.81 Nonalcoholic steatohepatitis (NASH); K74.69 Other cirrhosis of liver; Z79.4 Long term (current) use of insulin; Z79.891 Long term (current) use of opiate analgesic; I25.10 Atherosclerotic heart disease of native coronary artery without angina pectoris; H91.90 Unspecified hearing loss, unspecified ear; K74.60 Unspecified cirrhosis of liver
CPT/HCPCS: 36415; 36416; 51798; 70450; 71045; 74176; 80048; 80053; 81001; 82140; 82962; 83605; 83735; 84100; 84145; 85014; 85018; 85025; 85610; 86850; 86900; 86905; 86920; 87040; 87077; 87086; 87150; 87186; 87205; 87426; 87804; 93005; 96372; G0378; J0696; J1335; J1815; J2185; J2930; J7030; J7040; J7050; P9016

== ENCOUNTER → 2022-04-05 14:39 | Outpatient (BNVA) | payer MEDICARE, MEDICAID, SELFPAY | PROVIDERS: PCP Family Medicine; Visit Provider Orthopaedic Surgery | DX: S52.501A Unspecified fracture of the lower end of right radius, initial encounter for closed fracture (principal); X58.XXXA Exposure to other specified factors, initial encounter | CPT/HCPCS: 73110; 99024 ==

== ENCOUNTER 2022-04-14 06:13 | Outpatient (CLI) | payer MEDICARE, MEDICAID, SELFPAY ==
[2022-04-14 06:47] LABS: Basophils % 1.5 %; Eosinophils # 0.1 10^3/uL (0.0-0.8); Eosinophils % 5.2 %; Hematocrit 25.7 % (37.0-47.0); Hemoglobin 8.1 g/dL (11.5-15.3); Lymphocytes # 0.4 10^3/uL (0.8-4.8); Lymphocytes % 30.6 %; Mean Corpuscular HGB Conc 31.5 g/dL (30.0-36.0); Mean Corpuscular Hemoglobin 27.6 pg (28.0-34.0); Mean Corpuscular Volume 87.7 fl (81-99); Mean Platelet Volume 10.1 fL (7.4-10.4); Monocytes # 0.2 10^3/uL (0.2-0.9); Monocytes % 16.4 %; Neutrophils % 45.6 %; Nucleated Red Blood Cells % 0 %; Platelet Count 89 10^3/cmm (130-400); Red Blood Count 2.93 10^6/uL (4.1-5.3); Red Cell Distribution Width 17.2 % (12.1-15.1); White Blood Count 1.3 10^3/uL (4.0-10.0)
[2022-04-14 07:06] LABS: Neutrophils # 0.61 10^3/uL (1.8-7.7)
== END 2022-04-14 06:14 | disposition home or self-care (01) ==
PROVIDERS: PCP Family Medicine; Visit Provider Nurse Practitioner Family
DX: D64.9 Anemia, unspecified (principal)
CPT/HCPCS: 85025

== ENCOUNTER 2022-04-21 06:37 | Outpatient (CLI) | payer MEDICARE, MEDICAID, SELFPAY ==
[2022-04-21 06:58] LABS: Basophils % 1.3 %; Eosinophils # 0.1 10^3/uL (0.0-0.8); Eosinophils % 4.4 %; Hematocrit 24.9 % (37.0-47.0); Hemoglobin 7.6 g/dL (11.5-15.3); Lymphocytes # 0.4 10^3/uL (0.8-4.8); Lymphocytes % 25.2 %; Mean Corpuscular HGB Conc 30.5 g/dL (30.0-36.0); Mean Corpuscular Volume 88.6 fl (81-99); Mean Platelet Volume 9.7 fL (7.4-10.4); Monocytes # 0.3 10^3/uL (0.2-0.9); Monocytes % 15.7 %; Neutrophils % 53.4 %; Nucleated Red Blood Cells % 0 %; Platelet Count 87 10^3/cmm (130-400); Red Blood Count 2.81 10^6/uL (4.1-5.3); Red Cell Distribution Width 16.5 % (12.1-15.1); White Blood Count 1.6 10^3/uL (4.0-10.0)
[2022-04-21 07:41] LABS: Neutrophils # 0.85 10^3/uL (1.8-7.7)
== END 2022-04-21 06:38 | disposition home or self-care (01) ==
PROVIDERS: PCP Family Medicine; Visit Provider Nurse Practitioner Family
DX: D64.9 Anemia, unspecified (principal)
CPT/HCPCS: 85025

== ENCOUNTER 2022-04-25 05:31 | Outpatient (CLI) | payer MEDICARE, MEDICAID, SELFPAY ==
[2022-04-25 06:08] LABS: Basophils % 0.6 %; Eosinophils # 0.1 10^3/uL (0.0-0.8); Eosinophils % 5.5 %; Hematocrit 25.6 % (37.0-47.0); Hemoglobin 7.8 g/dL (11.5-15.3); Lymphocytes # 0.5 10^3/uL (0.8-4.8); Lymphocytes % 29.7 %; Mean Corpuscular HGB Conc 30.5 g/dL (30.0-36.0); Mean Corpuscular Hemoglobin 26.9 pg (28.0-34.0); Mean Corpuscular Volume 88.3 fl (81-99); Mean Platelet Volume 9.6 fL (7.4-10.4); Monocytes # 0.2 10^3/uL (0.2-0.9); Monocytes % 14.5 %; Neutrophils % 49.1 %; Nucleated Red Blood Cells % 0 %; Platelet Count 100 10^3/cmm (130-400); Red Cell Distribution Width 16.4 % (12.1-15.1); White Blood Count 1.7 10^3/uL (4.0-10.0)
[2022-04-25 06:25] LABS: Neutrophils # 0.81 10^3/uL (1.8-7.7)
== END 2022-04-25 05:32 | disposition home or self-care (01) ==
LOC: LAB 05:39
PROVIDERS: PCP Family Medicine; Visit Provider Nurse Practitioner Family
DX: Z01.89 Encounter for other specified special examinations (principal)
CPT/HCPCS: 85025

== ENCOUNTER → 2022-05-26 10:24 | Outpatient (BNVA) | payer MEDICARE, MEDICAID, SELFPAY | PROVIDERS: PCP Family Medicine; Visit Provider Family Medicine | DX: D50.0 Iron deficiency anemia secondary to blood loss (chronic) (principal); E11.9 Type 2 diabetes mellitus without complications | CPT/HCPCS: 80053; 85025 ==

== ENCOUNTER 2022-05-28 16:09 | Inpatient (IN) | payer MEDICARE, MEDICAID, SELFPAY ==
[2022-05-28] VITALS (7 sets, daily range): BP systolic 116–160; BP diastolic 54–74; PULSE 99–105; RESP 14–25; TEMP 37.4–39.5; O2SAT 94–97; BMI 24.7
--- NOTE | 2022-05-28 16:18 | XRR_ITS ---
PROCEDURE INFORMATION: Exam: XR Chest Exam date and time: 05/28/2022 4:25 PM Age: 76 years old Clinical indication: Fever TECHNIQUE: Imaging protocol: Radiologic exam of the chest. Views: 1 view. COMPARISON: CR XR chest 1V portable [id number] 03/14/2022 6:46 PM FINDINGS: Lungs: Minor curvilinear bibasilar scarring. Mild coarsening of the lung parenchyma. No consolidation. Pleural spaces: No pleural effusion. No pneumothorax. Heart/Mediastinum: Borderline cardiomegaly. Bones/joints: Fracture deformity of the right humeral head noted. XR/XR chest 1V portable [id number] IMPRESSION: No acute findings.
[2022-05-28 16:37] LABS: Add Urine Culture? No; Add Urine Microscopic? YES; Bacteria Urine 4+ /hpf; Bilirubin Urine Neg (Negative); Blood Urine Neg (Negative); Glucose Urine UA Norm (Normal); Ketones Urine Negative (Negative); Leukocyte Esterase Urine 2+ (Negative); Nitrate Urine Positive (Negative); Protein Urine Trace (Negative); RBC Urine 0-4 /hpf (0-2); Squamous Epithelial Cell Urine 0-4 /hpf (0-5); Urine Appearance SL Hazy (CLEAR); Urine Color Yellow (Yellow); Urobilinogen Urine Norm (Negative); WBC Urine 55-80 /hpf (0-5); pH Urine 6.5 (5-7)
--- NOTE | 2022-05-28 16:39 | PC.NURSE ---
pt c/o pain with passive ROM to RUE and LLE. no obvious signs of deformity. pt unable to verbalize if she has any recent falls. pt continue to remained altered and lethargic.
[2022-05-28] MEDS: sodium chloride 0.9% 1,905.09 ML 1905.09 ML IV (16:41)
--- NOTE | 2022-05-28 16:51 | XRR_ITS ---
PROCEDURE INFORMATION: Exam: XR Right Humerus Exam date and time: 05/28/2022 5:06 PM Age: 76 years old Clinical indication: Injury or trauma; Other: Unknown; Additional info: Pain TECHNIQUE: Imaging protocol: Radiologic exam of the right humerus. Views: 2 or more views. COMPARISON: CR (CHEST, ) 05/28/2022 4:25 PM FINDINGS: Bones/joints: Fracture deformity of the right humeral head. The rest of the humerus is intact. Soft tissues: Normal. XR/[place] [id number] IMPRESSION: Fracture deformity of the right humeral head.
--- NOTE | 2022-05-28 16:51 | XRR_ITS ---
PROCEDURE INFORMATION: Exam: XR Right Femur Exam date and time: 05/28/2022 5:10 PM Age: 76 years old Clinical indication: Injury or trauma; Other: Unknown; Additional info: Pain TECHNIQUE: Imaging protocol: Radiologic exam of the right femur. Views: 2 views. COMPARISON: CR XR femur RT min 2V* [id number] 01/24/2022 9:54 AM FINDINGS: Bones/joints: Intact reconstruction hardware/metallic plates and screws along the right hemipelvis as well as intramedullary teagan and screws within the right femur. No acute fracture. Chronic deformity of the right femoral head and fracture deformity of the distal femur. Soft tissues: Unremarkable. XR/XR femur RT min 2V* [id number] IMPRESSION: No acute findings.
--- NOTE | 2022-05-28 16:51 | CTR_ITS ---
PROCEDURE INFORMATION: Exam: CT Head Without Contrast Exam date and time: 05/28/2022 5:01 PM Age: 76 years old Clinical indication: Altered mental status/memory loss; Confusion or disorientation; Prior surgery TECHNIQUE: Imaging protocol: Computed tomography of the head without contrast. Radiation optimization: All CT scans at this facility use at least one of these dose optimization techniques: automated exposure control; mA and/or kV adjustment per patient size (includes targeted exams where dose is matched to clinical indication); or iterative reconstruction. REPORTING DATA: Count of CT and Cardiac NM exams in prior 12 months: This patient has received 9 known CTs and 0 known cardiac nuclear medicine studies in the 12 months prior to the current study. COMPARISON: CT head wo con* [id number] 03/14/2022 8:11 PM RADIATION DOSE METRICS: Total DLP (mGy-cm): 1126.28 FINDINGS: Limitations: Streak artifact by the cochlear implant device limits fine detailed evaluation of the brain parenchyma in this region. Tubes, catheters and devices: Left-sided cochler implant is again noted. Brain: Aneurysm clip again noted in the right anterior clinoid region. No hemorrhage. Mild diffuse cerebral atrophy and sequela of chronic small vessel ischemic disease. No edema. No mass effect. Cerebral ventricles: No ventriculomegaly. Paranasal sinuses: Visualized sinuses are unremarkable. No fluid levels. Mastoid air cells: Visualized mastoid air cells are well aerated. Bones/joints: No acute fracture. Right frontotemporal craniotomy changes noted. Soft tissues: Unremarkable. CT/CT head wo con* [id number] IMPRESSION: No acute intracranial abnormality.
--- NOTE | 2022-05-28 16:53 | ED_ITS ---
HPI - Female Genitourinary General: Chief complaint: Urogenital-Female Stated complaint: BURNING URINATION Time Seen by Provider: 05/28/22 16:15 Source: EMS Mode of arrival: EMS History of Present Illness: 76-year-old female who comes from home by EMS. There is no family at the bedside at this time. So history is limited. Per EMS, the patient was more lethargic and confused today. She was released from the intermediate 1 week ago. Patient is noted of a fever of 103. Review of Systems General: Reports: ROS unobtainable due to mental status PFSH ED PFSH: Medical History Abdominal ascites Abdominal pain Abnormal colonoscopy Anemia AVM (arteriovenous malformation) AVM (arteriovenous malformation) of colon with hemorrhage C. difficile colitis Cerebral aneurysm Closed fracture of right distal femur Diverticulosis Fluid overload Fracture of distal end of right radius GI bleed Esophageal variceal banding on 2 occasions in the past, EGD colonoscopy October 2015 upper endoscopy showed esophageal varices with no bleeding or stigmata of bleeding. Colonoscopy showed multiple AVMs in the ascending and proximal transverse colon which were cauterized. Extensive diverticulosis with internal and external hemorrhoids were noted. 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 HENMT: OTHER: mucous membranes are dry Eye: COMMON NORMALS: Equal, round and reactive pupils present and conjunctivae normal CONJUNCTIVA: Yes conjunctivae normal PUPIL: Yes Equal, round and reactive pupils present Neck/C-Spine: OTHER: No JVD or lymphadenopathy Resp: OTHER: Equal breath sounds bilaterally. Lung sounds are clear Cardio: OTHER: Regular rhythm, tachycardic GI: OTHER: Mild generalized tenderness, abdomen is soft Back/Pelvis: OTHER: No skin lesions, no tenderness or bruising Extremity: OTHER: Extremities are spastic, pain with range of motion of the right hip. Tenderness of the right wrist as well. Neuro: OTHER: Patient moved lower extremities and her left upper extremity spontaneously. All 4 extremities are spastic. Holds right arm held in flexion spasticity Course Consultations: Consultation #1: Discussed with the hospitalist who agrees with admission. Time: 19:14 Vital Signs: Vital signs: Vital Signs Temperature 101.5 F H 05/28/22 18:26 Pulse Rate 105 H 05/28/22 16:10 Respiratory Rate 14 05/28/22 16:10 Blood Pressure 160/74 05/28/22 16:10 Pulse Oximetry 97 05/28/22 16:10 Oxygen Delivery Me thod 05/28/22 16:10 MDM - Female Medical Decision Making 76-year-old female who presents with fever and altered mental status. Suspect patient probably is uroseptic. We will give her an IV fluid bolus 30 cc/kg. Will obtain labs including blood cultures and urine cultures. We will obtain a chest x-ray. Because of her altered mental status, I am going to obtain a CT of her head. We will start Zosyn and vancomycin. Patient will likely need admission. Differential includes sepsis, UTI, hypoglycemia, electrolyte abnormality, dehydration, intracranial hemorrhage.. We will give the patient a Tylenol suppository for her fever in addition to the IV fluid bolus and antibiotics. With her recent intermediate stay, will treat her for healthcare acquired infection. X-rays do show a right humeral neck fracture, uncertain of the old or new. We will place the patient in a sling. She is also of her old wrist fracture. We are given the patient IV fluids. We have given her a Tylenol suppository. Her mental status remains unchanged. Her head CT shows no acute findings. Patient will need admission. At this point we have not seen family to find out what her baseline is. Medical Records I reviewed the patient's medical records. Lab Data I reviewed the patient's lab results. Patient has pancytopenia with a white blood cell count of 2.4, hemoglobin of 8.8 and a platelet count of 100. These values are stable from previous. She is hyponatremic with a sodium of 130, potassium is 4.4, chloride is 97, CO2 is 20. She is chronically hyponatremic with a similar trend in her sodium levels. BUN is 20, creatinine 1.0. Glucose is 186. On urinalysis, she has 55-80 white blood cells, 0-4 red blood cells, 4+ bacteria and 2+ leukocyte esterase. Her lactic acid is normal at 1.9. Patient's urine is infected with 55-80 white blood cells, 0-4 red blood cells, 2+ leukocyte esterase. We will culture and give antibiotics for healthcare acquired UTI. 05/28/22 16:31 05/28/22 16:31 Radiology Impressions Chest X-Ray 05/28/22 16:18 IMPRESSION: No acute findings. Femur X-Ray 05/28/22 16:51 IMPRESSION: No acute findings. Head CT 05/28/22 16:51 IMPRESSION: No acute intracranial abnormality. Humerus X-Ray 05/28/22 16:51 IMPRESSION: Fracture deformity of the right humeral head. Wrist X-Ray 05/28/22 16:55 IMPRESSION: 1. No acute findings. 2. Old fracture deformity of the distal radius. Laboratory Results WBC 2.4 10^3/uL (4.0-10.0) L 05/28/22 16:31 RBC 3.18 10^6/uL (4.1-5.3) L 05/28/22 16:31 Hgb 8.8 g/dL (11.5-15.3) L 05/28/22 16:31 Hct 28.5 % (37.0-47.0) L 05/28/22 16: MCV 89.6 fl (81-99) 05/28/22 16: MCH 27.7 pg (28.0-34.0) L 05/28/22 16:31 MCHC 30.9 g/dL (30.0-36.0) 05/28/22 16:31 RDW 14.6 % (12.1-15.1) 05/28/22 16:31 Plt Count 100 10^3/cmm (130-400) L 05/28/22 16:31 MPV 9.4 fL (7.4-10.4) 05/28/22 16: Neut % (Auto) 73.8 % 05/28/22 16:31 Lymph % (Auto) 14.2 % 05/28/22 16:31 [place] % (Auto) 10.4 % 05/28/22 16:31 Eos % (Auto) 0.4 % 05/28/22 16:31 Baso % (Auto) 0.8 % 05/28/22 16:31 Neut # (Auto) 1.77 10^3/uL (1.8-7.7) L 05/28/22 16:31 Lymph # (Auto) 0.3 10^3/uL (0.8-4.8) L 05/28/22 16:31 [place] # (Auto) 0.3 10^3/uL (0.2-0.9) 05/28/22 16:31 Eos # (Auto) 0.0 10^3/uL (0.0-0.8) 05/28/22 16:31 Baso # (Auto) 0.0 10^3/uL (0.0-0.1) 05/28/22 16:31 Nucleated RBC % (auto) 0 % 05/28/22 16:31 Nucleated RBCs # 0.0 /100WBC 05/28/22 16:31 Sodium 130 mmol/L (136-145) L 05/28/22 16:31 Potassium 4.4 mmol/L (3.5-5.1) 05/28/22 16:31 Chloride 97 mmol/L (98-107) L 05/28/22 16:31 Carbon Dioxide 20 mmol/L (22-29) L 05/28/22 16:31 Anion Gap 17.4 (5-19) 05/28/22 16:31 BUN 20 mg/dL (8-23) 05/28/22 16:31 Creatinine 1.0 mg/dL (0.5-0.9) H 05/28/22 16:31 GFR Calculation Not Reportable 05/28/22 16:31 Glucose 186 mg/dL (65-115) H 05/28/22 16:31 POC Glucose 198 mg/dL (70-110) H 05/28/22 17:28 Calculated Osmolality 277 mOsm/kg (285-295) L 05/28/22 16:31 Lactic Acid 1.9 mmol/L (0.5-2.2) 05/28/22 16:31 Calcium 9.4 mg/dL (8.5-10.5) 05/28/22 16:31 Total Bilirubin 1.0 mg/dL (0.15-1.2) 05/28/22 16:31 AST 28 U/L (0-32) 05/28/22 16:31 ALT 13 U/L (0-33) 05/28/22 16:31 Alkaline Phosphatase 169 U/L (35-105) H 05/28/22 16:31 Total Protein 7.5 g/dL (6.6-8.7) 05/28/22 16:31 Albumin 3.8 g/dL (3.5-5.2) 05/28/22 16:31 Globulin 3.7 g/dL (1.3-4.6) 05/28/22 16:31 Urine Color Yellow (Yellow) 05/28/22 16:22 Urine Appearance Sl hazy (CLEAR) A 05/28/22 16:22 Urine pH 6.5 (5-7) 05/28/22 16:22 Ur Specific [place] 1.010 (1.005-1.030) 05/28/22 16:22 Urine Protein Trace (Negative) 05/28/22 16:22 Urine Glucose (UA) Norm (Normal) 05/28/22 16:22 Urine Ketones Negative (Negative) 05/28/22 16:22 Urine Blood Neg (Negative) 05/28/22 16:22 Urine Nitrate Positive (Negative) H 05/28/22 16:22 Urine Bilirubin Neg (Negative) 05/28/22 16:22 Urine Urobilinogen Norm mg/dL (Negative) 05/28/22 16:22 Ur Leukocyte Esterase 2+ (Negative) H 05/28/22 16:22 Urine RBC 0-4 /hpf (0-2) H 05/28/22 16:22 Urine WBC 55-80 /hpf (0-5) H 05/28/22 16:22 Ur Squamous Epith Cells 0-4 /hpf (0-5) H 05/28/22 16:22 Amorphous Sediment Not Reportable 05/28/22 16:22 Urine Bacteria 4+ /hpf (NONE) H 05/28/22 16:22 Discharge Plan Discharge Patient Disposition: Admitted As Inpatient Clinical Impression: Urinary tract infection, Fever, Altered mental status, Closed fracture of neck of right humerus Condition: Stable Prescriptions: No Action ferrous sulfate 325 mg (65 mg iron) Tablet 325 mg PO BID@07,17 insulin lispro [Humalog KwikPen Insulin] 100 unit/mL Insulin Pen See Rx Instructions .ROUTE .COMPLEX Rx Instructions: sliding scale before meals and at bedtime 140-175=2 units 176-200=3 units 201-250=5 units 251-299=7 units 300 plus =9 units mirtazapine 7.5 mg tablet 7.5 mg PO BEDTIME@19 Qty: 30 1RF acetaminophen 500 mg Tablet 1,000 mg PO Q6H PRN (Reason: Pain) magnesium hydroxide [Milk of Magnesia] 400 mg/5 mL Suspension 30 ml PO DAILY PRN (Reason: Constipation) bumetanide 1 mg tablet 1 mg PO DAILY Qty: 60 1RF insulin glargine [Lantus Solostar U-100 Insulin] 100 unit/mL (3 mL) insulin pen 24 unit SUBCUT DAILY@08 spironolactone 25 mg tablet 25 mg PO DAILY@07 Qty: 30 0RF oxycodone 5 mg tablet 5 mg PO Q6H PRN (Reason: pain) 7 Days Qty: 28 0RF Xifaxan 550 mg tablet 550 mg PO BID Qty: 60 1RF pantoprazole 40 mg tablet,delayed release (DR/EC) 40 mg PO BID Qty: 60 2RF Dulcolax (bisacodyl) 10 mg Suppository 10 mg OK DAILY PRN (Reason: Constipation) Fleet Enema 19-7 gram/118 mL Enema 118 ml OK DAILY PRN (Reason: Constipation) Women's 50 Plus Daily Formula 400 mcg-500 mg calcium-20 mcg Tablet 1 tab PO DAILY ondansetron HCl 8 mg Tablet 8 mg PO Q8H PRN (Reason: Nausea) Referrals: Che Holt DO [Primary Care Provider] - Coding Level of Care Code ED Geoscience Professor for Erika Camacho
[2022-05-28] MEDS: vancomycin 1,000 MG in sodium chloride 0.9% 250 ML 250 MG IV (16:55)
--- NOTE | 2022-05-28 16:55 | XRR_ITS ---
PROCEDURE INFORMATION: Exam: XR Right Wrist Exam date and time: 05/28/2022 5:10 PM Age: 76 years old Clinical indication: Injury or trauma; Other: Unknown; Additional info: Pain previous fracture TECHNIQUE: Imaging protocol: Radiologic exam of the right wrist. Views: 3 or more views. COMPARISON: CR ([facility], ) 02/15/2022 7:32 AM FINDINGS: Bones/joints: Heterogeneous demineralization of the osseous structures. Old fracture deformity of the distal radius. No acute fracture. Soft tissues: Normal. XR/XR wrist RT min 3V* [id number] IMPRESSION: 1. No acute findings. 2. Old fracture deformity of the distal radius.
[2022-05-28 16:59] LABS: Basophils % 0.8 %; Eosinophils % 0.4 %; Hematocrit 28.5 % (37.0-47.0); Hemoglobin 8.8 g/dL (11.5-15.3); Lymphocytes # 0.3 10^3/uL (0.8-4.8); Lymphocytes % 14.2 %; Mean Corpuscular HGB Conc 30.9 g/dL (30.0-36.0); Mean Corpuscular Hemoglobin 27.7 pg (28.0-34.0); Mean Corpuscular Volume 89.6 fl (81-99); Mean Platelet Volume 9.4 fL (7.4-10.4); Monocytes # 0.3 10^3/uL (0.2-0.9); Monocytes % 10.4 %; Neutrophils # 1.77 10^3/uL (1.8-7.7); Neutrophils % 73.8 %; Nucleated Red Blood Cells % 0 %; Platelet Count 100 10^3/cmm (130-400); Red Blood Count 3.18 10^6/uL (4.1-5.3); Red Cell Distribution Width 14.6 % (12.1-15.1); White Blood Count 2.4 10^3/uL (4.0-10.0)
[2022-05-28 17:29] LABS: Alanine Aminotransferase 13 U/L (0-33); Albumin Level 3.8 g/dL (3.5-5.2); Alkaline Phosphatase 169 U/L (35-105); Anion Gap 17.4 (5-19); Aspartate Amino Transferase 28 U/L (0-32); Blood Urea Nitrogen 20 mg/dL (8-23); Calcium 9.4 mg/dL (8.5-10.5); Carbon Dioxide 20 mmol/L (22-29); Chloride 97 mmol/L (98-107); Globulin 3.7 g/dL (1.3-4.6); Glucose 186 mg/dL (65-115); Osmolality Calculated 277 mOsm/kg (285-295); Potassium 4.4 mmol/L (3.5-5.1); Sodium 130 mmol/L (136-145); Total Protein 7.5 g/dL (6.6-8.7)
[2022-05-28 17:30] LABS: Lactic Sepsis W/Reflex 1.9 mmol/L (0.5-2.2)
[2022-05-28 17:32] LABS: Glucose Point of Care 198 mg/dL (70-110)
[2022-05-28] MEDS: acetaminophen 650 mg Supp PR (18:06)
[2022-05-28] MEDS: piperacillin-tazobactam 4.5 GM in sodium chloride 0.9% (plus) 50 ML IV (18:06)
--- NOTE | 2022-05-28 19:18 | PC.NURSE ---
REPORT GIVEN TO CHUCHO SHAH.
[2022-05-28] MEDS: meropenem 1,000 MG in sodium chloride 0.9% (plus) 50 ML 100 MG IV ×2 (19:30→21:47)
[2022-05-28 19:42] LABS: Creatine Phosphokinase 39 U/L (26-192)
[2022-05-28 19:42] LABS: Ammonia 37 umol/L (11-51)
--- NOTE | 2022-05-28 19:46 | P.HP_ITS ---
Providers/Chief Complaint Primary Care Provider: Che Holt DO Chief Complaint: BURNING URINATION History of Present Illness History taken over the phone by son and chart review. Martha Moore is a 76 year old female with past medical history of liver cirrhosis deemed nonalcoholic, portal hypertension, GI bleed, ESBL E. coli UTI and bacteremia in February 2022 who was recently discharged from half-way around a week ago. As per the son patient was at her baseline health till today morning when she woke up complaining of back pain and since then during the day became more confused and lethargic hence was brought into the ER via EMS today. Patient lives with her who also more than 90 years of age. As per son patient has not reported any dysuria, diarrhea, fevers. In the ER patient was found to have a white count of 2.4, hemoglobin of 8.8, platelet count of 100, sodium of 130, creatinine of 1, magnesium 1.6 with UA positive for nitrate, humerus x-ray concerning for fracture of right humeral head. In the ER patient was hemodynamically stable with Tmax of 103 Fahrenheit. Review of Systems General: Reports: ROS unobtainable due to mental status Medications/Allergies Home Medications Medication Instructions Recorded Confirmed Last Taken Type ferrous sulfate 325 mg (65 mg 325 mg PO BID@07,17 06/11/21 05/26/22 02/23/22 History iron) tablet insulin lispro 100 unit/mL See Rx Instructions .Route .COMPLEX 06/11/21 05/26/22 02/23/22 History subcutaneous pen (Humalog KwikPen (U-100) Insulin) acetaminophen 500 mg tablet 1,000 mg PO Q6H PRN Pain 06/16/21 05/26/22 02/23/22 History magnesium hydroxide 400 mg/5 mL 30 ml PO DAILY PRN Constipation 06/16/21 05/26/22 Unknown History oral suspension (Milk of Magnesia) ondansetron HCl 8 mg tablet 8 mg PO Q8H PRN Nausea 08/22/21 05/26/22 02/23/22 History insulin glargine 100 unit/mL (3 24 unit SUBCUT DAILY@08 11/28/21 05/26/22 02/23/22 History mL) subcutaneous pen (Lantus Solostar U-100 Insulin) bisacodyl 10 mg rectal suppository 10 mg MT DAILY PRN Constipation 03/15/22 05/26/22 Unknown History (Dulcolax (bisacodyl)) qnrzqqrj-mea-feqzr ac 400 1 tab PO DAILY 03/15/22 05/26/22 Unknown History mcg-calcium carb 500 mg-vit K1 20 mcg tablet (Women's 50 Plus Daily Formula) sodium phosphates 19 gram-7 118 ml MT DAILY PRN Constipation 03/15/22 05/26/22 Unknown History gram/118 mL enema (Fleet Enema) bumetanide 1 mg tablet 1 mg PO DAILY #60 tabs 05/26/22 05/26/22 Unknown Rx mirtazapine 7.5 mg tablet 7.5 mg PO BEDTIME@19 #30 tabs 05/26/22 05/26/22 Unknown Rx oxycodone 5 mg tablet 5 mg PO Q6H PRN pain 7 days #28 05/26/22 05/26/22 Unknown Rx tabs pantoprazole 40 mg tablet,delayed 40 mg PO BID #60 tabs 05/26/22 05/26/22 Unknown Rx release rifaximin 550 mg tablet (Xifaxan) 550 mg PO BID #60 tabs 05/26/22 05/26/22 Unknown Rx spironolactone 25 mg tablet 25 mg PO DAILY@07 #30 tabs 05/26/22 05/26/22 Unknown Rx Allergies Allergy/AdvReac Type Severity Reaction Status Date / Time aspirin Allergy Intermediate rash Verified 05/26/22 09:16 atropine Allergy Intermediate unknown Verified 05/26/22 09:16 tositumomab iodine-131 Allergy Mild ALGY-Hives Verified 05/26/22 09:16 ciprofloxacin Allergy ALGY-Rash Verified 05/26/22 09:16 hydrocodone Allergy Unknown Verified 05/26/22 09:16 iodine Allergy ALGY-Hives Verified 05/26/22 09:16 meperidine [From Demerol] Allergy ADR-Nausea Verified 05/26/22 09:16 Sulfa (Sulfonamide Allergy ALGY-Rash Verified 05/26/22 09:16 Antibiotics) PFSH Acute PFSH: Medical History (Updated 05/29/22 @ 00:27 by Tejinder Heath MD) Abdominal ascites Abdominal pain Abnormal colonoscopy Anemia AVM (arteriovenous malformation) AVM (arteriovenous malformation) of colon with hemorrhage C. difficile colitis Cerebral aneurysm Closed fracture of right distal femur Diverticulosis Fluid overload Fracture of distal end of right radius GI bleed Esophageal variceal banding on 2 occasions in the past, EGD colonoscopy October 2015 upper endoscopy showed esophageal varices with no bleeding or stigmata of bleeding. Colonoscopy showed multiple AVMs in the ascending and proximal transverse colon which were cauterized. Extensive diverticulosis with internal and external hemorrhoids were noted. 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 (LLOYD) LLOYD (nonalcoholic steatohepatitis) Portal hypertension EGD esophageal banding on 03/25/16 she has been transfused multiple times Type 2 diabetes mellitus Surgical History S/P endoscopy Family History Other Family history non-contributory Social History Smoking and tobacco status: never smoked Alcohol intake: never Housing: House Vitals/I&O/Wt Last Vital Signs Temp 101.6 F H 05/28/22 19:27 Pulse 100 05/28/22 19:27 Resp 25 H 05/28/22 19:27 BP 116/54 05/28/22 19:27 Pulse Ox 94 05/28/22 19:27 O2 Del Method 05/28/22 19:27 05/28/22 05/28/22 05/28/22 06:59 14:59 22:59 Intake Total 300 / 300 Balance 300 / 300 Weight last 48 hrs Weight 63.503 kg Physical Exam Narrative: General: No acute distress, AO x1-2, alert and oriented to self and place, slow to respond, confused, chronically sick appearing, pallor present HEENT: PERRLA, pupils bilaterally equal and reactive Chest:Bronchial breath sounds b/l ,decreased air entry, equal good air entry bilaterally, no more fine basal crackles CVS: S1-S2 regular, no murmurs, no tachycardia, no gallops, no rubs Abdomen: Soft, possible mild bilateral CVA tenderness, no organomegaly, bowel sounds present, morbidly obese Neuro: No focal deficits, no facial deformity, AO x3, power 5/5 in all limbs Sepsis: Is patient septic: Yes Focused sepsis exam performed: Yes Date exam was performed: 05/29/22 Time exam was performed: 00:29 Data 05/28/22 16:31 05/28/22 16:31 Micro: Microbiology 05/28/22 16:43 Blood Culture - Preliminary Blood SPECIMEN COLLECTED 05/28/22 16:37 Blood Culture - Preliminary Blood SPECIMEN COLLECTED A&P Assessment and plan (1) Sepsis: Present on admission. Ruled in with tachycardia, high-grade fever, leukopenia. Source most likely UTI. Target organ dysfunction with altered mental status. Follow-up blood cultures, urine culture. Check MRSA swab, procalcitonin, respiratory viral panel, urine Legionella, bacterial antigen. Keep mean artery pressure 65. Start on normal saline at 75 cc/h. (2) Urinary tract infection: Review of old urine cultures consistent with ESBL E. coli. For now start with IV vancomycin and meropenem. Will de-escalate as per culture results. Stop vancomycin as MRSA negative. (3) Altered mental status: Most likely in setting of severe sepsis. Check ammonia levels to rule out hepatic encephalopathy in setting of liver cirrhosis. CT head negative for acute bleed. Check vitamin B12, TSH. Appreciate electrolytes. Hold off on home dose of mirtazapine. Continue with home dose of rifaximin 550 mg twice daily. Add lactulose 10 mg twice daily. Will uptitrate as per ammonia levels. Monitor bowel movements. (4) Closed fracture of neck of right humerus: No recent history of trauma as per the son. Sling applied in the ER. Pain control. (5) Pancytopenia: Chronic. Most likely in setting of liver cirrhosis. Monitor for neutropenia. Monitor CBC including leukocytes, hemoglobin and platelets daily. Check iron panel, vitamin B12, folate levels. (6) Liver cirrhosis secondary to nonalcoholic steatohepatitis (LLOYD): (7) Portal hypertension: (8) Anemia: Plan Analgesia: Tylenol 650 mg every 8 hourly as needed, morphine 1 mg every 4 hourly as needed. Glycemic control: Check A1c. Continue home dose of Lantus 24 units daily along with lispro low-dose protocol every 6 hourly. Nutrition: NPO. Will start on carb consistent diet once patient is less conf used. CODE STATUS: Discussed in detail with patient's son over the phone. Son is the DPOA. DNR/DNI. PUD prophylaxis: Protonix 40 mg twice daily. DVT prophylaxis: SCDs for DVT prophylaxis. Hold off on medical prophylaxis given anemia and thrombocytopenia Discharge planning: Home with home health versus SNF as per PT evaluation. Admit to [facility] with telemetry. This documentation was created by [email or web address] pile driving setter software. Every effort was made to ensure accuracy of pile driving setter. Any obvious errors or omissions should be clarified with the author of the document. Attestations Medical Necessity Statement*: Admission for more than 2 midnights for management of altered mental status, sepsis in setting of UTI in a patient with history of liver cirrhosis, pancytopenia and portal hypertension while safe discharge planning is sought. and High Time for a total of 80 minutes, includes rev iewing past or interval history, examining/interviewing patient, placing orders, counseling patient/family/other support, updating patient/family/other support, discussing plan of care with staff, communicating with other healthcare providers, documenting encounter and coordinating care Diagnoses Sepsis A41.9 Urinary tract infection N39.0 Altered mental status R41.82 Closed fracture of neck of right humerus S42.211A Pancytopenia D61.818 Liver cirrhosis secondary to nonalcoholic steatohepatitis (LLOYD) K75.81; K74.60 Portal hypertension K76.6 Anemia D64.9
--- NOTE | 2022-05-28 19:48 | CTR_ITS ---
PROCEDURE INFORMATION: Exam: CT Abdomen And Pelvis Without Contrast Exam date and time: 05/28/2022 7:58 PM Age: 76 years old Clinical indication: Other: Sepsis; Prior surgery; Surgery date: 6+ months; Surgery type: Ortho; Additional info: UTI, sepsis, cirrhosis, gall stones, obstrutive uropathy TECHNIQUE: Imaging protocol: Computed tomography of the abdomen and pelvis without contrast. Radiation optimization: All CT scans at this facility use at least one of these dose optimization techniques: automated exposure control; mA and/or kV adjustment per patient size (includes targeted exams where dose is matched to clinical indication); or iterative reconstruction. REPORTING DATA: Count of CT and Cardiac NM exams in prior 12 months: This patient has received 10 known CTs and 0 known cardiac nuclear medicine studies in the 12 months prior to the current study. COMPARISON: CT kidney stone [id number] 03/21/2022 9:47 AM RADIATION DOSE METRICS: Total DLP (mGy-cm): 767.9 FINDINGS: Pleural spaces: Small bilateral pleural effusions with adjacent compressive atelectasis. Heart: Cardiomegaly. Coronary arteries: Multivessel atherosclerotic disease which involves the coronary arteries. Liver: Lobulated liver consistent with cirrhosis. Gallbladder and bile ducts: The gallbladder has been removed. Pancreas: Normal. No ductal dilation. Spleen: Splenomegaly. Adrenal glands: Normal. No mass. Kidneys and ureters: Normal. No hydronephrosis. Stomach and bowel: There is diverticulosis of the colon without evidence of diverticulitis. Appendix: No evidence of appendicitis. Intraperitoneal space: Unremarkable. No free air. No significant fluid collection. Vasculature: Unremarkable. No abdominal aortic aneurysm. Lymph nodes: Unremarkable. No enlarged lymph nodes. Urinary bladder: Unremarkable as visualized. Reproductive: The uterus is not visualized, consistent with hysterectomy. Bones/joints: Destructive and postoperative changes in the right hemipelvis appears similar to the prior study. Soft tissues: Unremarkable. CT/CT abdomen pelvis wo con [id number] IMPRESSION: 1. Hepatic cirrhosis with associated splenomegaly. 2. Cardiomegaly. In association with small bilateral pleural effusions, findings are consistent with congestive heart failure. Please correlate clinically. 3. Multivessel atherosclerotic disease which involves the coronary arteries. 4. Destructive and postoperative changes in the right hemipelvis appears similar to the prior study.
[2022-05-28 20:18] LABS: Amphetamines Screen Urine Negative (Negative); Barbiturates Screen Urine Negative (Negative); Benzodiazepines Screen Urine Negative (Negative); Cocaine Screen Urine Negative (Negative); Opiate Screen Urine Negative (Negative); PCP Screen Urine Negative (Negative); THC Screen Urine Negative (Negative)
[2022-05-28 20:40] LABS: Procalcitonin 0.24 ng/mL (0-0.5); Thyroid Stimulating Hormone 0.72 uIU/mL (0.27-4.20)
[2022-05-28] MEDS: sodium chloride 0.9% 1,000 ML 75 ML IV (20:45)
[2022-05-28 20:50] LABS: Acetaminophen 5.5 ug/mL (10-30); Iron 34 ug/dL (37-145); Magnesium 1.6 mg/dL (1.7-2.3); Percent Saturation 10.9 % (20-50); Phosphorus 2.3 mg/dL (2.5-4.5); Total Iron Binding Capacity 310 mcg/dl; Unsaturated Iron Binding 276 ug/dL (112-347)
[2022-05-28 20:55] LABS: D Dimer 2.91 ug/mIFEU (0-0.59); INR 1.06 (0.8-1.2)
[2022-05-28 20:56] LABS: Alcohol Level < 10 mg/dL (0-10); Salicylate < 0.3 mg/dL (3-10)
--- NOTE | 2022-05-28 21:03 | NUR.SHIFT ---
Pt has broken arm, denies pain as long as she is not moving or being moved.
[2022-05-28 21:19] LABS: Folate Level 18.9 ng/mL (4.8-37.3)
[2022-05-28 21:39] LABS: Adenovirus Not Detected (NOT DETECT); Chlamydia Pneumoniae Not Detected (NOT DETECT); Coronavirus 229E,HKU1,NL63,OC4 Not Detected (NOT DETECT); Human Metapneumovirus Not Detected (NOT DETECT); Human Rhinovirus/Enterovirus Not Detected (NOT DETECT); Influenza A Not Detected (NOT DETECT); Influenza A H1 Not Detected (NOT DETECT); Influenza A H1-2009 Not Detected (NOT DETECT); Influenza A H3 Not Detected (NOT DETECT); Influenza B Not Detected (NOT DETECT); Mycoplasma Pneumoniae Not Detected (NOT DETECT); Parainfluenza Virus Type 1 Not Detected (NOT DETECT); Parainfluenza Virus Type 2 Not Detected (NOT DETECT); Parainfluenza Virus Type 3 Not Detected (NOT DETECT); Parainfluenza Virus Type 4 Not Detected (NOT DETECT); Respiratory Syncytial Virus A Not Detected (NOT DETECT); Respiratory Syncytial Virus B Not Detected (NOT DETECT); SARS-COV-2 Not Detected (NOT DETECT)
[2022-05-28 21:42] LABS: Glucose Point of Care 227 mg/dL (70-110)
[2022-05-28] MEDS: insulin lispro 100 unit/1 mL SUBCUT (21:47)
[2022-05-28] MEDS: lactulose oral liq 20 gm/30 mL UDC 10 GM PO (21:47)
[2022-05-29] VITALS (13 sets, daily range): BP systolic 123–156; BP diastolic 62–75; PULSE 82–116; RESP 15–24; TEMP 36.4–37.3; O2SAT 93–98
[2022-05-29] MEDS: meropenem 1,000 MG in sodium chloride 0.9% (plus) 50 ML 100 MG IV ×3 (03:39→20:25)
[2022-05-29 04:30] LABS: Glucose Point of Care 216 mg/dL (70-110)
[2022-05-29] MEDS: insulin lispro 100 unit/1 mL SUBCUT ×4 (04:43→23:12)
[2022-05-29 05:24] LABS: Basophils % 0.6 %; Hematocrit 26.1 % (37.0-47.0); Hemoglobin 8.1 g/dL (11.5-15.3); Lymphocytes # 0.5 10^3/uL (0.8-4.8); Lymphocytes % 13.2 %; Mean Corpuscular Hemoglobin 27.7 pg (28.0-34.0); Mean Corpuscular Volume 89.4 fl (81-99); Mean Platelet Volume 9.6 fL (7.4-10.4); Monocytes # 0.4 10^3/uL (0.2-0.9); Monocytes % 12.4 %; Neutrophils % 73.2 %; Nucleated Red Blood Cells % 0 %; Platelet Count 79 10^3/cmm (130-400); Red Blood Count 2.92 10^6/uL (4.1-5.3); Red Cell Distribution Width 14.5 % (12.1-15.1); White Blood Count 3.6 10^3/uL (4.0-10.0)
[2022-05-29 05:43] LABS: Alanine Aminotransferase 11 U/L (0-33); Albumin Level 3.2 g/dL (3.5-5.2); Alkaline Phosphatase 124 U/L (35-105); Anion Gap 18.7 (5-19); Aspartate Amino Transferase 26 U/L (0-32); Blood Urea Nitrogen 18 mg/dL (8-23); Calcium 8.5 mg/dL (8.5-10.5); Carbon Dioxide 18 mmol/L (22-29); Chloride 103 mmol/L (98-107); Chol HDL Ratio 1.82 mg/dL (0.0-4.40); Cholesterol 104 mg/dL (0-200); Globulin 3.4 g/dL (1.3-4.6); Glucose 203 mg/dL (65-115); HDL Cholesterol 57 mg/dL (60-100); LDL Cholesterol Calculated 31 mg/dL (50-129); Magnesium 1.9 mg/dL (1.7-2.3); Osmolality Calculated 290 mOsm/kg (285-295); Phosphorus 2.2 mg/dL (2.5-4.5); Potassium 3.7 mmol/L (3.5-5.1); Sodium 136 mmol/L (136-145); Total Bilirubin 0.9 mg/dL (0.15-1.2); Total Protein 6.6 g/dL (6.6-8.7); Triglycerides 81 mg/dL (0-150); VLDL Cholestrol Calculation 16 mg/dL (0-30)
[2022-05-29] MEDS: ferrous sulfate EC 325 mg Tablet PO (05:52)
[2022-05-29] MEDS: spironolactone 25 mg Tablet PO (05:53)
[2022-05-29 06:00] LABS: Estmated Average Glucose 123; Hemoglobin A1C 5.9 % (4.0-6.0)
[2022-05-29] MEDS: morphine 4 mg/mL SDV 1 mL 1 MG IVP ×3 (06:14→16:08)
[2022-05-29] MEDS: docusate sodium 100 mg Capsule PO (08:30)
[2022-05-29] MEDS: pantoprazole DR 40 mg Tablet PO (08:30)
[2022-05-29] MEDS: lactulose oral liq 20 gm/30 mL UDC 10 GM PO (08:30)
[2022-05-29] MEDS: insulin glargine 100 units/1 mL 24 UNIT SUBCUT (10:03)
[2022-05-29] MEDS: sodium chloride 0.9% 1,000 ML 75 ML IV (10:05)
--- NOTE | 2022-05-29 10:26 | PC.OT ---
OT Eval Held - Attempted eval on this day, patient inappropriate at this time secondary to AMS. Evaluation held until patient is able to participate appropriately.
--- NOTE | 2022-05-29 11:46 | PM.PN ---
Subjective Subjective: seen today confused Vitals/I&O/Wt Last Vital Signs Temp 98.4 F 05/29/22 08:00 Pulse 97 05/29/22 08:00 Resp 18 05/29/22 08:00 BP 138/62 05/29/22 08:00 Pulse Ox 94 05/29/22 07:55 O2 Del Method 05/29/22 04:00 05/28/22 05/29/22 05/29/22 22:59 06:59 14:59 Intake Total 400 / 400 52 / 452 1050 / 1050 Balance 400 / 400 52 / 452 1050 / 1050 Weight last 48 hrs Weight 71.758 kg Weight 73.981 kg Weight 63.503 kg Physical Exam Narrative: General: No acute distress, AO x1, alert and oriented to self slow to respond, confused, chronically sick appearing, pallor present HEENT: EOMI Chest:Bronchial breath sounds b/l ,decreased air entry, CVS: S1-S2 regular, no murmurs, no tachycardia, no gallops, no rubs Abdomen: Soft, possible mild bilateral CVA tenderness, bowel sounds present, morbidly obese Neuro: No focal deficits, no facial deformity, AO x3, sling on right arm Data 05/29/22 04:25 05/29/22 04:25 Micro: Microbiology 05/28/22 16:22 Bacterial Antigens - Final Urine Kidney 05/28/22 16:22 Legionella Urinary Antigen - Final Urethra 05/28/22 16:43 Blood Culture - Preliminary Blood SPECIMEN COLLECTED 05/28/22 16:37 Blood Culture - Preliminary Blood SPECIMEN COLLECTED A&P Assessment and plan (1) Sepsis: Present on admission. Ruled in with tachycardia, high-grade fever, leukopenia. Source most likely UTI. Target organ dysfunction with altered mental status. Follow-up blood cultures, urine culture. Check MRSA swab, procalcitonin, respiratory viral panel, urine Legionella, bacterial antigen. Keep mean artery pressure 65. Start on normal saline at 75 cc/h. (2) Urinary tract infection: Review of old urine cultures consistent with ESBL E. coli. For now start with IV vancomycin and meropenem. Will de-escalate as per culture results. Stop vancomycin as MRSA negative. (3) Altered mental status: Most likely in setting of severe sepsis. Check ammonia levels to rule out hepatic encephalopathy in setting of liver cirrhosis. CT head negative for acute bleed. Check vitamin B12, TSH. Appreciate electrolytes. Hold off on home dose of mirtazapine. Continue with home dose of rifaximin 550 mg twice daily. Add lactulose 10 mg twice daily. Will uptitrate as per ammonia levels. Monitor bowel movements. (4) Closed fracture of neck of right humerus: No recent history of trauma as per the son. Sling applied in the ER. Pain control. (5) Pancytopenia: Chronic. Most likely in setting of liver cirrhosis. Monitor for neutropenia. Monitor CBC including leukocytes, hemoglobin and platelets daily. Check iron panel, vitamin B12, folate levels. (6) Liver cirrhosis secondary to nonalcoholic steatohepatitis (LLOYD): (7) Portal hypertension: (8) Anemia: Plan Analgesia: Tylenol 650 mg every 8 hourly as needed, morphine 1 mg every 4 hourly as needed. Glycemic control: Check A1c. Continue home dose of Lantus 24 units daily along with lispro low-dose protocol every 6 hourly. Nutrition: NPO. Will start on carb consistent diet once patient is less confused. CODE STATUS: Discussed in detail with patient's son over the phone. Son is the DPOA. DNR/DNI. PUD prophylaxis: Protonix 40 mg twice daily. DVT prophylaxis: SCDs for DVT prophylaxis. Hold off on medical prophylaxis given anemia and thrombocytopenia Discharge planning: Home with home health versus SNF as per PT evaluation. Admit to [facility] with telemetry. This documentation was created by [employer] electronic assembler group leader software. Every effort was made to ensure accuracy of electronic assembler group leader. Any obvious errors or omissions should be clarified with the author of the document. Attestations Medical Necessity Statement*: continue in hospital management Diagnoses Sepsis A41.9 Urinary tract infection N39.0 Altered mental status R41.82 Closed fracture of neck of right humerus S42.211A Pancytopenia D61.818 Liver cirrhosis secondary to nonalcoholic steatohepatitis (LLOYD) K75.81; K74.60 Portal hypertension K76.6 Anemia D64.9
[2022-05-29 12:18] LABS: Glucose Point of Care 232 mg/dL (70-110)
[2022-05-29 16:53] LABS: Glucose Point of Care 168 mg/dL (70-110)
[2022-05-29] MEDS: vancomycin 1,250 MG/250 ML PIGGYBACK 250 MG IV (17:30)
[2022-05-29] MEDS: HYDROmorphone 1 mg/mL INJ 1 mL 0.4 MG IVP (22:01)
[2022-05-29 23:08] LABS: Glucose Point of Care 196 mg/dL (70-110)
[2022-05-30] VITALS (16 sets, daily range): BP systolic 113–150; BP diastolic 56–85; PULSE 79–91; RESP 16–28; TEMP 36.6–38.1; O2SAT 91–97
[2022-05-30] MEDS: sodium chloride 0.9% 1,000 ML 75 ML IV (01:16)
[2022-05-30] MEDS: meropenem 1,000 MG in sodium chloride 0.9% (plus) 50 ML 50 MG IV (03:06)
[2022-05-30] MEDS: HYDROmorphone 1 mg/mL INJ 1 mL 0.4 MG IVP ×3 (04:05→19:11)
[2022-05-30 05:23] LABS: Glucose Point of Care 183 mg/dL (70-110)
[2022-05-30] MEDS: ferrous sulfate EC 325 mg Tablet PO (05:59)
[2022-05-30] MEDS: insulin lispro 100 unit/1 mL SUBCUT ×2 (05:59→23:17)
[2022-05-30] MEDS: spironolactone 25 mg Tablet PO (06:01)
[2022-05-30 06:03] LABS: Basophils % 0.3 %; Eosinophils % 0.3 %; Hematocrit 24.2 % (37.0-47.0); Hemoglobin 7.2 g/dL (11.5-15.3); Lymphocytes # 0.3 10^3/uL (0.8-4.8); Lymphocytes % 11.1 %; Mean Corpuscular HGB Conc 29.8 g/dL (30.0-36.0); Mean Corpuscular Hemoglobin 26.9 pg (28.0-34.0); Mean Corpuscular Volume 90.3 fl (81-99); Mean Platelet Volume 10.1 fL (7.4-10.4); Monocytes # 0.4 10^3/uL (0.2-0.9); Monocytes % 13.5 %; Neutrophils % 74.1 %; Nucleated Red Blood Cells % 0 %; Platelet Count 80 10^3/cmm (130-400); Red Blood Count 2.68 10^6/uL (4.1-5.3); Red Cell Distribution Width 14.6 % (12.1-15.1)
[2022-05-30 06:20] LABS: Anion Gap 15.4 (5-19); Blood Urea Nitrogen 27 mg/dL (8-23); Calcium 8.4 mg/dL (8.5-10.5); Carbon Dioxide 18 mmol/L (22-29); Chloride 108 mmol/L (98-107); Glucose 170 mg/dL (65-115); Magnesium 1.9 mg/dL (1.7-2.3); Osmolality Calculated 295 mOsm/kg (285-295); Potassium 3.4 mmol/L (3.5-5.1); Sodium 138 mmol/L (136-145)
[2022-05-30] MEDS: ondansetron 2 mg/ML SDV 2 mL 4 MG IVP (09:57)
--- NOTE | 2022-05-30 10:12 | USCV_ITS ---
Martha Moore Age: 76 Gender: F : 1945 Exam Date: 05/30/2022 10:40 Ordering Phys: Maritza Fitzpatrick MD Technologist: CT [place]am [place] [facility] [place] Indication: r/o dvt swelling PROCEDURES: Venous duplex imaging was performed in bilateral lower extremities. The following venous structures were evaluated: common femoral vein, profunda vein, proximal portion of the greater saphenous vein, superficial femoral vein, and the popliteal vein. In addition, the posterior tibial and peroneal trunk were evaluated. Bilaterally, the common femoral, superficial femoral, profunda femoral, popliteal, posterior tibial, greater saphenous veins, and the peroneal trunk were identified and interrogated in the standard fashion. These veins were found to be easily compressible with spontaneous blood flow. No evidence of insufficiency or thrombus noted. FINDINGS: pt could not tolerate left fv mid and distal compression. no dvt noted CONCLUSIONS No evidence of right lower extremity DVT. No evidence of left lower extremity DVT. Alonso Gibson MD (Electronically Signed) Final Date: 30 May 2022 11:33 S
--- NOTE | 2022-05-30 11:43 | PC.OT ---
OT EVALUATION ATTEMPTED. PATIENT RECEIVING ULTRASOUND AND UNAVAILABLE. WILL ATTEMPT AGAIN IN P.M.
--- NOTE | 2022-05-30 11:58 | P.PN_ITS ---
Subjective Subjective: Patient is morning was complaining a lot of pain in her back and right arm, she was given Dilaudid and asked nurse to put a lidocaine patch in her back CT scan findings were discussed with the family who was at the bedside Son present Patient is able to tell me her name and date of , she is awake and alert She is in a lot of pain Son is okay with home health services if she is able to go home She was recently discharged from a intermediate a few weeks ago Vitals/I&O/Wt Last Vital Signs Temp 98.2 F 05/30/22 07:47 Pulse 88 05/30/22 07:47 Resp 17 05/30/22 09:49 BP 134/56 05/30/22 07:47 Pulse Ox 93 05/30/22 07:47 O2 Del Method 05/30/22 07:47 05/29/22 05/30/22 05/30/22 22:59 06:59 14:59 Intake Total 300 / 1400 1050 / 2450 Balance 300 / 1400 1050 / 2450 Weight last 48 hrs Weight 71.758 kg Weight 73.981 kg Weight 63.503 kg Physical Exam Narrative: Awake and alert Bilateral lower extremity swelling Abdomen soft Right arm pain with movement Complaining of lower back pain/hip pain Awake and alert GCS 15 nonfocal neuro exam Family at the bedside Currently on room air Data 05/30/22 05:16 05/30/22 05:16 Micro: Microbiology 05/28/22 16:22 Urine Culture - Preliminary Urine Catheterized Gram Negative Rods 05/28/22 16:37 Blood Culture - Preliminary Blood NEGATIVE TO DATE 05/28/22 16:43 Blood Culture - Preliminary Blood NEGATIVE TO DATE 05/28/22 16:22 Bacterial Antigens - Final Urine Kidney A&P Assessment and plan (1) Type 2 diabetes mellitus: Qualifiers: 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 mellitus 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 insulin use: with 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 use Diabetes mellitus complication status: without complication Qualified Code(s): E11.9 - Type 2 diabetes mellitus without complications; Z79.4 - truck terminal manager (current) use of insulin (2) Pancytopenia: (3) Sepsis: (4) Urinary tract infection: (5) Fever: (6) Altered mental status: (7) Closed fracture of neck of right humerus: (8) Insomnia: Qualifiers: Insomnia type: psychophysiologic Qualified Code(s): F51.04 - Psychophysiologic insomnia (9) Right leg swelling: (10) Acute cystitis: (11) Hepatic encephalopathy: (12) Closed fracture of right distal femur: Qualifiers: Encounter type: initial encounter Fracture morphology: other fracture Qualified Code(s): S72.491A - Other fracture of lower end of right femur, initial encounter for closed fracture (13) Portal hypertension: Plan Sepsis secondary to UTI: Resolved Hepatic encephalopathy: Resolving Patient awake and alert today able to answer most of my questions Son at the bedside Urine culture sensitive report is pending for gram-negative teagan Afebrile Pancytopenia, 1 unit blood transfusion for now Related to underlying liver cirrhosis portal hypertension and hypersplenism History of band ligation, transfusion in the past I will de-escalate antibiotics once final blood culture report Discontinue IV fluids Continue spironolactone and Lasix DNR/DNI Disposition plan: Home health services Patient discharged to intermediate Distal radial fracture inoperable medical management Cardiac diet Hypokalemia: Repleted Attestations Medical Necessity Statement*: Continue medical management Diagnoses Type 2 diabetes mellitus E11.9; Z79.4 Diabetes mellitus 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 insulin use: with correction use Diabetes mellitus complication status: without complication Pancytopenia D61.818 Sepsis A41.9 Urinary tract infection N39.0 Fever R50.9 Altered mental status R41.82 Closed fracture of neck of right humerus S42.211A Insomnia F51.04 Insomnia type: psychophysiologic Right leg swelling M79.89 Acute cystitis N30.00 Hepatic encephalopathy K76.82 Closed fracture of right distal femur S72.491A Encounter type: initial encounter Fracture morphology: other fracture Portal hypertension K76.6
[2022-05-30] MEDS: meropenem 1,000 MG in sodium chloride 0.9% (plus) 50 ML 100 MG IV ×2 (13:30→20:58)
[2022-05-30 13:33] LABS: Glucose Point of Care 186 mg/dL (70-110)
--- NOTE | 2022-05-30 13:39 | PC.OT ---
OT EVALUATION ATTEMPTED TWICE TODAY. AT SECOND ATTEMPT, PATIENT IS SLEEPING SOUNDLY. WILL ATTEMPT AGAIN IN TOMORROW.
--- NOTE | 2022-05-30 15:07 | PC.NURSE ---
Per Julia in blood bank patient has multiple antibodies and blood will have to be screened and transferred from [facility] which could be later tonight. If patient is needing more units ordered lab will need to know ahead of time due to delay in type of blood.
[2022-05-30 18:02] LABS: Glucose Point of Care 181 mg/dL (70-110)
[2022-05-30 20:47] LABS: Glucose Point of Care 198 mg/dL (70-110)
[2022-05-30] MEDS: acetaminophen 325 mg Tablet 650 MG PO (22:43)
[2022-05-30 23:00] LABS: Glucose Point of Care 171 mg/dL (70-110)
[2022-05-31] VITALS (15 sets, daily range): BP systolic 122–157; BP diastolic 58–75; PULSE 66–82; RESP 15–22; TEMP 36.7–37.3; O2SAT 92–96
[2022-05-31] MEDS: sodium chloride 0.9% (100 ml) 100 ML 500 ML (01:33)
[2022-05-31] MEDS: HYDROmorphone 1 mg/mL INJ 1 mL 0.4 MG IVP (04:12)
[2022-05-31 04:52] LABS: Glucose Point of Care 133 mg/dL (70-110)
[2022-05-31 05:40] LABS: Basophils % 0.8 %; Eosinophils # 0.1 10^3/uL (0.0-0.8); Eosinophils % 2.8 %; Hematocrit 30.5 % (37.0-47.0); Hemoglobin 9.5 g/dL (11.5-15.3); Lymphocytes # 0.5 10^3/uL (0.8-4.8); Lymphocytes % 20.6 %; Mean Corpuscular HGB Conc 31.1 g/dL (30.0-36.0); Mean Corpuscular Hemoglobin 27.7 pg (28.0-34.0); Mean Corpuscular Volume 88.9 fl (81-99); Mean Platelet Volume 10.3 fL (7.4-10.4); Monocytes # 0.3 10^3/uL (0.2-0.9); Monocytes % 13.4 %; Neutrophils # 1.52 10^3/uL (1.8-7.7); Neutrophils % 61.6 %; Nucleated Red Blood Cells % 0 %; Platelet Count 112 10^3/cmm (130-400); Red Blood Count 3.43 10^6/uL (4.1-5.3); Red Cell Distribution Width 14.5 % (12.1-15.1); White Blood Count 2.5 10^3/uL (4.0-10.0)
[2022-05-31 05:57] LABS: Alkaline Phosphatase 109 U/L (35-105); Blood Urea Nitrogen 30 mg/dL (8-23); Calcium 8.4 mg/dL (8.5-10.5); Carbon Dioxide 16 mmol/L (22-29); Chloride 105 mmol/L (98-107); Globulin 3.1 g/dL (1.3-4.6); Glucose 127 mg/dL (65-115); Osmolality Calculated 290 mOsm/kg (285-295); Sodium 136 mmol/L (136-145); Total Bilirubin 1.3 mg/dL (0.15-1.2); Total Protein 6.1 g/dL (6.6-8.7)
[2022-05-31 06:06] LABS: Slide Review Slide Review Perform
[2022-05-31 06:27] LABS: Anion Gap 19.5 (5-19); Potassium 4.5 mmol/L (3.5-5.1)
[2022-05-31 06:28] LABS: Alanine Aminotransferase 12 U/L (0-33); Aspartate Amino Transferase 35 U/L (0-32)
[2022-05-31] MEDS: meropenem 1,000 MG in sodium chloride 0.9% (plus) 50 ML 100 MG IV (06:29)
[2022-05-31] MEDS: spironolactone 25 mg Tablet PO (06:30)
[2022-05-31] MEDS: ferrous sulfate EC 325 mg Tablet PO ×2 (06:30→18:16)
[2022-05-31] MEDS: pantoprazole DR 40 mg Tablet PO ×2 (09:31→18:15)
[2022-05-31] MEDS: potassium chloride ER 20 mEq Tablet PO (09:31)
[2022-05-31] MEDS: lactulose oral liq 20 gm/30 mL UDC 10 GM PO (09:32)
--- NOTE | 2022-05-31 10:23 | PC.CHAP ---
Pastoral Care Encounter/Spiritual Assessment Type of Contact [] Declined rolled materials worker visit [] Patient/Family/Request visit [] Outpatient visit [] Follow-up visit [] Physician referral [] Code/Alert [] Routine visit [] Staff referral [] Actively dying [] Patient sleeping [] Family support [] [] Out of room [] Palliative care [] [x] Receiving care in room [] Pre-surgical visit [] Trauma [] Long length of stay [] ICU visit [] Other: Relational/Emotional Strength [] Patient feels connected with others/family/visitors/staff [] Distress [] Loneliness/isolation [] Abandonment Spirituality of Patient [] Person of Radha [] Attends Rastafarian of their Radha [] Believes in Prayer [] Reads Bible or Moravian materials [] There are Spiritual issues to be addressed Filler Shredder Interventions [] Prayer [] Active listening [] Non-anxious presence [] Spiritual/emotional support [] Crisis/trauma care [] Spiritual counseling [] Bereavement support [] Provided bereavement packet [] Provided Bible/devotional materials [] Provided toy/stuffed animal, coloring book to patient or family member [] Provided Communion [] Anointing/Ranger [] Salvation [] Completed spiritual assessment [] Other: Impact on Illness or Injury [] Angry [] Fearful [] Anxious [] Often cries [] Exhaustion [] Unable to work [] Unable to attend adventism [] Unable to walk/stand [] Unable to read [] Unable to drive [] Unable to eat/drink [] Unable to sleep [] Unable to be with family [] Patient intubated [] Other: Summary Time spent with patient
[2022-05-31 10:45] LABS: Glucose Point of Care 195 mg/dL (70-110)
[2022-05-31] MEDS: oxyCODONE 5 mg IR Tab/Cap PO ×2 (11:11→22:51)
--- NOTE | 2022-05-31 12:02 | PC.SOCIAL ---
Pg 2 IMM Explained to pt's son Pg 2 IMM. No questions voiced. Provided pt a copy. Initialed, dated, & timed a copy & placed in chart.
--- NOTE | 2022-05-31 13:04 | PM.PN ---
Subjective Subjective: Pancytopenia improving Urine culture gram-negative teagan previous history of ESBL I did tell case managers that in case of ESBL her discharge plan will change as she will require PICC line 2 weeks of IV antibiotics etc. This morning patient was resting well No active pain Patient is stating if she keeps her shoulder warm her pain subsides Vitals/I&O/Wt Last Vital Signs Temp 98.2 F 05/31/22 08:21 Pulse 81 05/31/22 08:21 Resp 16 05/31/22 11:11 BP 155/73 05/31/22 08:21 Pulse Ox 93 05/31/22 08:21 O2 Del Method 05/31/22 08:21 05/30/22 05/31/22 05/31/22 22:59 06:59 14:59 Intake Total 50 / 100 450 / 550 170 / 170 Balance 50 / 100 450 / 550 170 / 170 Weight last 48 hrs Weight 75.438 kg Physical Exam Narrative: Resting comfortably Awake and alert GCS 15 Hemodynamically stable Currently on room air Asking for water Abdomen soft No audible stridor or wheezing S1, S2 No active signs of confusion Data 05/31/22 05:18 05/31/22 05:18 Micro: Microbiology 05/28/22 16:22 Urine Culture - Preliminary Urine Catheterized Gram Negative Rods A&P Assessment and plan (1) Type 2 diabetes mellitus: Qualifiers: Diabetes mellitus fpc insulin use: with fpc use Diabetes mellitus complication status: without complication Qualified Code(s): E11.9 - Type 2 diabetes mellitus without complications; Z79.4 - exterminator helper termite (current) use of insulin (2) Pancytopenia: (3) Sepsis: (4) Urinary tract infection: (5) Altered mental status: (6) Fever: (7) Closed fracture of neck of right humerus: (8) Insomnia: Qualifiers: Insomnia type: psychophysiologic Qualified Code(s): F51.04 - Psychophysiologic insomnia (9) Acute cystitis: (10) Hepatic encephalopathy: (11) Closed fracture of right distal femur: Qualifiers: Encounter type: initial encounter Fracture morphology: other fracture Qualified Code(s): S72.491A - Other fracture of lower end of right femur, initial encounter for closed fracture (12) Femur fracture, right: Qualifiers: Encounter type: initial encounter Femur location: distal, unspecified portion Fracture morphology: unspecified fracture morphology Fracture type: closed Qualified Code(s): S72.401A - Unspecified fracture of lower end of right femur, initial encounter for closed fracture (13) Portal hypertension: (14) Liver cirrhosis secondary to nonalcoholic steatohepatitis (LLOYD): (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 History of ESBL continue meropenem Low-grade fever overnight Hepatic encephalopathy: Resolved Continue spironolactone Lasix Continue lactulose rifaximin regimen Euglycemic with type 2 diabetes patient p.o. intake is poor on dysphagia diet we will decrease the dose of Lantus We will touch base with micro lab to know final culture report Pancytopenia related to portal hypertension: Stable in fact numbers are better today Current disposition plan Home health which might change after urine culture report DNR/DNI Family updated DVT prophylaxis contraindicated due to thrombocytopenia, anemia Patient to continue PT OT ST Attestations Medical Necessity Statement*: Awaiting culture report Diagnoses Type 2 diabetes mellitus E11.9; Z79.4 Diabetes mellitus extermination supervisor insulin use: with fpc use Diabetes mellitus complication status: without complication Pancytopenia D61.818 Sepsis A41.9 Urinary tract infection N39.0 Altered mental status R41.82 Fever R50.9 Closed fracture of neck of right humerus S42.211A Insomnia F51.04 Insomnia type: psychophysiologic Acute cystitis N30.00 Hepatic encephalopathy K76.82 Closed fracture of right distal femur S72.491A Encounter type: initial encounter Fracture morphology: other fracture Femur fracture, right S72.401A Encounter type: initial encounter Femur location: distal, unspecified portion Fracture morphology: unspecified fracture morphology Fracture type: closed Portal hypertension K76.6 Liver cirrhosis secondary to nonalcoholic steatohepatitis (LLOYD) K75.81; K74.60 AVM (arteriovenous malformation) of colon with hemorrhage K55.21
[2022-05-31] MEDS: insulin lispro 100 unit/1 mL SUBCUT ×3 (13:56→22:51)
[2022-05-31] MEDS: sodium bicarbonate 650 mg Tablet PO ×2 (13:56→20:02)
[2022-05-31 16:19] LABS: Glucose Point of Care 182 mg/dL (70-110)
[2022-05-31] MEDS: nitrofurantoin SR (BID) 100 mg Capsule PO (18:11)
[2022-05-31 22:59] LABS: Glucose Point of Care 151 mg/dL (70-110)
[2022-06-01] VITALS (14 sets, daily range): BP systolic 114–163; BP diastolic 58–76; PULSE 68–85; RESP 14–18; TEMP 36.8–38.3; O2SAT 93–97
[2022-06-01 05:08] LABS: Basophils % 0.7 %; Eosinophils % 1.1 %; Hematocrit 28.4 % (37.0-47.0); Hemoglobin 8.7 g/dL (11.5-15.3); Lymphocytes # 0.6 10^3/uL (0.8-4.8); Lymphocytes % 21.9 %; Mean Corpuscular HGB Conc 30.6 g/dL (30.0-36.0); Mean Corpuscular Volume 88.2 fl (81-99); Mean Platelet Volume 9.7 fL (7.4-10.4); Monocytes # 0.5 10^3/uL (0.2-0.9); Monocytes % 16.9 %; Neutrophils # 1.64 10^3/uL (1.8-7.7); Nucleated Red Blood Cells % 0 %; Platelet Count 114 10^3/cmm (130-400); Red Blood Count 3.22 10^6/uL (4.1-5.3); Red Cell Distribution Width 14.1 % (12.1-15.1); White Blood Count 2.8 10^3/uL (4.0-10.0)
[2022-06-01 05:10] LABS: Glucose Point of Care 117 mg/dL (70-110)
[2022-06-01 05:27] LABS: Alanine Aminotransferase 9 U/L (0-33); Albumin Level 2.7 g/dL (3.5-5.2); Alkaline Phosphatase 118 U/L (35-105); Aspartate Amino Transferase 27 U/L (0-32); Blood Urea Nitrogen 22 mg/dL (8-23); Calcium 8.2 mg/dL (8.5-10.5); Carbon Dioxide 19 mmol/L (22-29); Chloride 99 mmol/L (98-107); Globulin 3.2 g/dL (1.3-4.6); Glucose 129 mg/dL (65-115); Magnesium 1.8 mg/dL (1.7-2.3); Osmolality Calculated 273 mOsm/kg (285-295); Sodium 129 mmol/L (136-145); Total Bilirubin 0.8 mg/dL (0.15-1.2); Total Protein 5.9 g/dL (6.6-8.7)
[2022-06-01] MEDS: spironolactone 25 mg Tablet PO (05:59)
[2022-06-01] MEDS: ferrous sulfate EC 325 mg Tablet PO (05:59)
[2022-06-01] MEDS: nitrofurantoin SR (BID) 100 mg Capsule PO ×2 (08:49→17:26)
[2022-06-01] MEDS: oxyCODONE 5 mg IR Tab/Cap PO ×4 (08:50→22:28)
[2022-06-01] MEDS: potassium chloride ER 20 mEq Tablet PO (08:50)
[2022-06-01] MEDS: lactulose oral liq 20 gm/30 mL UDC 10 GM PO (08:50)
[2022-06-01] MEDS: sodium bicarbonate 650 mg Tablet PO (08:50)
[2022-06-01] MEDS: pantoprazole DR 40 mg Tablet PO (08:51)
--- NOTE | 2022-06-01 10:53 | PM.PN ---
Subjective Subjective: Excruciating pain Dr. Villaseñor and Dr. Morejon both recommended follow-up with trauma surgeon who did her hip in the past Try to get in touch with his son to Where is that intervention done, as soon as I know the hospital I will try to get in touch with them to see if we can ask for transfer for acute exacerbation of her underlying hip osteoarthritis Vitals/I&O/Wt Last Vital Signs Temp 98.7 F 06/01/22 08:00 Pulse 72 06/01/22 08:00 Resp 16 06/01/22 08:50 BP 138/60 06/01/22 08:00 Pulse Ox 96 06/01/22 08:00 O2 Del Method 06/01/22 08:00 Weight last 48 hrs Weight 75.438 kg Physical Exam Narrative: Patient is awake and alert Complaining of pain in her right knee and hip Euvolemic to dehydrated Currently on room air Hemodynamically stable GCS 15 Abdomen soft Regular S1-S2 Blood pressure stable No audible stridor or wheezing Data 06/01/22 04:29 06/01/22 04:29 Micro: Microbiology 05/28/22 16:22 Urine Culture - Final Urine Catheterized Escherichia coli A&P Assessment and plan (1) Type 2 diabetes mellitus: Qualifiers: 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: with [facility] use Diabetes mellitus complication status: without complication Qualified Code(s): E11.9 - Type 2 diabetes mellitus without complications; Z79.4 - intermediate (current) use of insulin (2) Pancytopenia: (3) Sepsis: (4) Urinary tract infection: (5) Altered mental status: (6) Fever: (7) Closed fracture of neck of right humerus: (8) Insomnia: Qualifiers: Insomnia type: psychophysiologic Qualified Code(s): F51.04 - Psychophysiologic insomnia (9) Right leg swelling: (10) Hepatic encephalopathy: (11) Liver cirrhosis secondary to nonalcoholic steatohepatitis (LLOYD): (12) AVM (arteriovenous malformation) of colon with hemorrhage: (13) Hip osteoarthritis: (14) Metabolic acidosis: Plan Patient presented with fever and UTI which has resolved currently on nitrofurantoin ESBL not present, E. coli sensitive Hepatic encephalopathy: Resolved Hip osteoarthritis both orthopedic surgeons recommended follow-up with trauma surgeon We will try to get in touch with son to know about the hospital where intervention was done Dehydration related to low sodium start normal saline at lower rate Metabolic acidosis improved with bicarb tablets hold for now PanCytopenia related to portal hypertension: Stable, discontinue iron supplements DNR/DNI Spoke with Dr. Villaseñor yesterday, I spoke with Dr. Morejon today who might see this patient in the hospital Currently on dysphagia diet Patient will need SNF, she is not able to participate with PT completely because excruciating pain in her right hip and right knee Attestations Medical Necessity Statement*: Awaiting placement Diagnoses Type 2 diabetes mellitus E11.9; Z79.4 Diabetes mellitus [facility] insulin use: with [facility] use Diabetes mellitus complication status: without complication Pancytopenia D61.818 Sepsis A41.9 Urinary tract infection N39.0 Altered mental status R41.82 Fever R50.9 Closed fracture of neck of right humerus S42.211A Insomnia F51.04 Insomnia type: psychophysiologic Right leg swelling M79.89 Hepatic encephalopathy K76.82 Liver cirrhosis secondary to nonalcoholic steatohepatitis (LLOYD) K75.81; K74.60 AVM (arteriovenous malformation) of colon with hemorrhage K55.21 Hip osteoarthritis M16.9 Metabolic acidosis E87.20
[2022-06-01 12:29] LABS: Glucose Point of Care 251 mg/dL (70-110)
[2022-06-01] MEDS: insulin lispro 100 unit/1 mL SUBCUT ×3 (13:37→22:28)
[2022-06-01] MEDS: sodium chloride 0.9% 1,000 ML 75 ML IV (13:38)
[2022-06-01 16:45] LABS: Glucose Point of Care 197 mg/dL (70-110)
--- NOTE | 2022-06-01 16:48 | P.CONIM_ITS ---
Providers/Reason For Consult Consulting Physician/Specialty*: Gilson Morejon DO/orthopedic surgery Reason for Consult*: Right hip pain Right hip previous acetabular open reduction internal fixation and subsequent femoral head AVN and severe right hip degenerative joint disease Requesting Physician: Dr. Fitzpatrick Attending Physician: Maritza Fitzpatrick MD Primary Care Provider: Che Holt DO History of Present Illness History of Present Illness Martha Moore is a 76 year old female who is known to my practice back in the fall when she sustained a fall and had a displaced right distal femur fracture and underwent retrograde nail. She is went on to interval healing noted and was doing well at her last follow-up visit she was set to see me here in May. Was asked to see and evaluate patient by Dr. Fitzpatrick for her significant excruciating right hip pain. On my evaluation the patient she is very lethargic and sleepy. Unable to fully arouse for following of commands or at full HPI. I do know reviewing of her medical record that she is had previous right acetabular ORIF with significant plate and screw fixation of her right acetabulum and her femoral heads went on to avascular necrosis and severe right hip degenerative joint disease. In addition patient does have remote history of right distal radius fracture as well as a right proximal humerus fracture to heal. Review of Systems General: Reports: ROS unobtainable due to mental status (Lethargic and unable to follow commands.) Medications/Allergies Home Medications Medication Instructions Recorded Confirmed Last Taken Type ferrous sulfate 325 mg (65 mg 325 mg PO BID@07,17 06/11/21 05/29/22 02/23/22 History iron) tablet insulin lispro 100 unit/mL See Rx Instructions .Route .COMPLEX 06/11/21 05/29/22 02/23/22 History subcutaneous pen (Humalog KwikPen (U-100) Insulin) acetaminophen 500 mg tablet 1,000 mg PO Q6H PRN Pain 06/16/21 05/29/22 02/23/22 History magnesium hydroxide 400 mg/5 mL 30 ml PO DAILY PRN Constipation 06/16/21 05/29/22 Unknown History oral suspension (Milk of Magnesia) ondansetron HCl 8 mg tablet 8 mg PO Q8H PRN Nausea 08/22/21 05/29/22 02/23/22 History insulin glargine 100 unit/mL (3 24 unit SUBCUT DAILY@08 11/28/21 05/29/22 02/23/22 History mL) subcutaneous pen (Lantus Solostar U-100 Insulin) bisacodyl 10 mg rectal suppository 10 mg IA DAILY PRN Constipation 03/15/22 05/29/22 Unknown History (Dulcolax (bisacodyl)) krammwez-frp-[id number] ac 400 1 tab PO DAILY 03/15/22 05/29/22 Unknown History mcg-calcium carb 500 mg-vit K1 20 mcg tablet (Women's 50 Plus Daily Formula) sodium phosphates 19 gram-7 118 ml IA DAILY PRN Constipation 03/15/22 05/29/22 Unknown History gram/118 mL enema (Fleet Enema) bumetanide 1 mg tablet 1 mg PO DAILY #60 tabs 05/26/22 05/29/22 Unknown Rx mirtazapine 7.5 mg tablet 7.5 mg PO BEDTIME@19 #30 tabs 05/26/22 05/29/22 Unknown Rx oxycodone 5 mg tablet 5 mg PO Q6H PRN pain 7 days #28 05/26/22 05/29/22 Unknown Rx tabs pantoprazole 40 mg tablet,delayed 40 mg PO BID #60 tabs 05/26/22 05/29/22 Unknown Rx release rifaximin 550 mg tablet (Xifaxan) 550 mg PO BID #60 tabs 05/26/22 05/29/22 Unknown Rx spironolactone 25 mg tablet 25 mg PO DAILY@07 #30 tabs 05/26/22 05/29/22 Unknown Rx Allergies Allergy/AdvReac Type Severity Reaction Status Date / Time aspirin Allergy Intermediate rash Verified 05/26/22 09:16 atropine Allergy Intermediate unknown Verified 05/26/22 09:16 tositumomab iodine-131 Allergy Mild ALGY-Hives Verified 05/26/22 09:16 ciprofloxacin Allergy ALGY-Rash Verified 05/26/22 09:16 hydrocodone Allergy Unknown Verified 05/26/22 09:16 iodine Allergy ALGY-Hives Verified 05/26/22 09:16 meperidine [From Demerol] Allergy ADR-Nausea Verified 05/26/22 09:16 Sulfa (Sulfonamide Allergy ALGY-Rash Verified 05/26/22 09:16 Antibiotics) Current Medications Generic Name Dose Route Start Last Admin Trade Name Freq PRN Reason Stop Dose Admin Acetaminophen 650 mg 05/28/22 20:45 05/30/22 22:43 Acetaminophen 325 Mg Tablet PO 650 mg Q8H PRN Administration Mild/Mod Pain Or Temp >/= 101 Docusate Sodium 100 mg 05/29/22 09:00 06/01/22 08:51 Docusate Sodium 100 Mg Capsule PO Not Given BID [facility] Hydromorphone HCl 0.4 mg 05/29/22 21:37 05/31/22 04:12 Hydromorphone 1 Mg/Ml Inj 1 Ml IVP 0.4 mg Q6H PRN Administration PAIN Sodium Chloride 1,000 mls @ 75 mls/hr 06/01/22 11:00 06/01/22 13:38 Sodium Chloride 0.9% IV 75 mls/hr .[id number] [facility] Administration Insulin Glargine 10 unit 05/31/22 11:00 06/01/22 10:19 Insulin Glargine 100 Units/1 Ml SUBCUT Not Given DAILY@08 [facility] Insulin Human Lispro 0 unit 05/28/22 23:00 06/01/22 13:37 Insulin Lispro 100 Unit/1 Ml SUBCUT 6 unit Q6H [facility] Administration Protocol Lactulose 10 gm 05/29/22 09:00 06/01/22 08:50 Lactulose Oral Liq 20 Gm/30 Ml Udc PO 10 gm BID [facility] Administration Protocol Nitrofurantoin Macrocrystals 100 mg 05/31/22 18:00 06/01/22 08:49 Nitrofurantoin Sr (Bid) 100 Mg Capsule PO 100 mg BID [facility] Administration Ondansetron HCl 4 mg 05/28/22 20:45 05/30/22 09:57 Ondansetron 2 Mg/Ml Sdv 2 Ml IVP 4 mg Q8H PRN Administration vomiting, or N/V if npo Oxycodone HCl 5 mg 05/30/22 12:05 06/01/22 13:38 Oxycodone 5 Mg Ir Tab/Cap PO 5 mg Q4H PRN Administration MODERATE PAIN Potassium Chloride 20 meq 05/30/22 12:05 06/01/22 08:50 Potassium Chloride Er 20 Meq Tablet PO 20 meq DAILY RAMYA Administration Rifaximin 550 mg 05/29/22 09:00 06/01/22 08:50 Rifaximin 550 Mg Tablet PO 550 mg BID RAMYA Administration Protocol Sodium Bicarbonate 650 mg 05/31/22 13:10 06/01/22 08:50 Sodium Bicarbonate 650 Mg Tablet PO 650 mg TID RAMYA Administration Spironolactone 25 mg 05/29/22 07:00 06/01/22 05:59 Spironolactone 25 Mg Tablet PO 25 mg DAILY@07 RAMYA Administration PFSH Acute PFSH: Medical History (Updated 06/02/22 @ 08:31 by Gilson Morejon DO) Abdominal ascites Abdominal pain Abnormal colonoscopy Anemia AVM (arteriovenous malformation) AVM (arteriovenous malformation) of colon with hemorrhage C. difficile colitis Cerebral aneurysm Closed fracture of right distal femur Diverticulosis Fluid overload Fracture of distal end of right radius GI bleed Esophageal variceal banding on 2 occasions in the past, EGD colonoscopy October 2015 upper endoscopy showed esophageal varices with no bleeding or stigmata of bleeding. Colonoscopy showed multiple AVMs in the ascending and proximal transverse colon which were cauterized. Extensive diverticulosis with internal and external hemorrhoids were noted. 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 (LLOYD) LLOYD (nonalcoholic steatohepatitis) Portal hypertension EGD esophageal banding on 03/25/16 she has been transfused multiple times Type 2 diabetes mellitus Surgical History S/P endoscopy Family History Other Family history non-contributory Social History Smoking and tobacco status: never smoked Alcohol intake: never Housing: House Vitals/I&O/Wt Last Vital Signs Temp 98.3 F 06/01/22 15:59 Pulse 85 06/01/22 15:59 Resp 18 06/01/22 15:59 BP 163/76 06/01/22 15:59 Pulse Ox 96 06/01/22 15:59 O2 Del Method 06/01/22 15:59 Weight last 48 hrs Weight 166 lb 5 oz Physical Exam Narrative: Examination severely limited to patient's current mental status. Given she is very sleepy is arousable but difficult to follow any commands or respond appropriately. Review of right knee incisions are all well-healed no signs of infection no erythema. Patient has significant tenderness to palpation over the right hip and pain with any range of motion of the right hip. She does have edema to the right lower extremity as well that is pitting. She complains of pain everywhere. She will grimace to pain to palpation of the hip the femur the knee the tibia as well as the foot and ankle on the right side. Less diffuse tenderness to palpation on the left lower extremity. Unable to assess motor or sensory secondary to patient unable to follow commands. Patient unable to tolerate right shoulder range of motion complains of right upper extremity tenderness to palpation diffusely. Data 06/01/22 04:29 06/01/22 04:29 Micro: Microbiology 05/28/22 16:22 Urine Culture - Final Urine Catheterized Escherichia coli Xray Ortho: My impression: X-rays reviewed of the right humerus demonstrates a old right proximal humerus fracture this appears to be healed and stable as patient's previous imaging on April 2021 appear to be comparable. X-rays of the right wrist demonstrate healed right distal radius fracture X-rays of the right femur reviewed in person interpreted by myself demonstrating stable right retrograde femoral nail with stable hardware interval healing of the distal femur noted. Previous right acetabular ORIF noted. With significant destructive erosive changes of the right hip joint noticeably right femoral head AVN CT scan of the pelvis does demonstrate previous ORIF of the acetabulum the right hemipelvis with erosive destructive changes in the right hip these appear to be unchanged with no acute fractures in this area. A&P Assessment and plan (1) Closed fracture of right distal femur: Qualifiers: Encounter type: initial encounter Fracture morphology: other fracture Qualified Code(s): S72.491A - Other fracture of lower end of right femur, initial encounter for closed fracture (2) Closed fracture of neck of right humerus: (3) Hip osteoarthritis: (4) Avascular necrosis of femur head, right: Plan May continue to be weightbearing as tolerated to the right lower extremity and right upper extremity Pain control PT/OT We will obtain right knee x-rays as patient was set to follow-up with me here in May. Pertaining to severe right hip pain this is out of the scope of my practice. Patient has had extensive right hip surgery with previous incisions for acetabular ORIF. Has AVN of the femoral head and destructive changes throughout the acetabulum. She is continuing to complain of significant pain in this area however she does have diffuse pain to palpation predominantly on the entire right side and states that she hurts everywhere. I do not know if she would be able to handle a large right total hip arthroplasty procedure but this should be done if considered or being considered at a large tertiary center that could support patient's care as she does run anemic at baseline. This will need to be done by orthopedic traumatologist and/or total joint arthroplasty specialist. From my standpoint I can follow-up with her in my office for her right distal femur fracture ORIF with her preset follow-up appointment. No intervention from my standpoint at this time. Coding Level of Care Code Acute Code for g Fwd Diagnoses Closed fracture of right distal femur S72.491A Encounter type: initial encounter Fracture morphology: other fracture Closed fracture of neck of right humerus S42.211A Hip osteoarthritis M16.9 Avascular necrosis of femur head, right M87.051 Time Spent (min) 30
[2022-06-01 22:13] LABS: Glucose Point of Care 179 mg/dL (70-110)
[2022-06-02] VITALS (10 sets, daily range): BP systolic 102–150; BP diastolic 57–71; PULSE 65–75; RESP 15–19; TEMP 36.7–37.2; O2SAT 92–95
[2022-06-02] MEDS: sodium chloride 0.9% 1,000 ML 75 ML IV (00:18)
[2022-06-02 05:53] LABS: Anion Gap 13.1 (5-19); Blood Urea Nitrogen 19 mg/dL (8-23); Calcium 7.8 mg/dL (8.5-10.5); Carbon Dioxide 20 mmol/L (22-29); Chloride 100 mmol/L (98-107); Glucose 148 mg/dL (65-115); Osmolality Calculated 273 mOsm/kg (285-295); Potassium 4.1 mmol/L (3.5-5.1); Sodium 129 mmol/L (136-145)
[2022-06-02] MEDS: spironolactone 25 mg Tablet PO (06:30)
[2022-06-02 06:50] LABS: Glucose Point of Care 136 mg/dL (70-110)
[2022-06-02] MEDS: oxyCODONE 5 mg IR Tab/Cap PO ×2 (08:36→19:15)
[2022-06-02] MEDS: potassium chloride ER 20 mEq Tablet PO (08:37)
[2022-06-02] MEDS: docusate sodium 100 mg Capsule PO ×2 (08:37→18:38)
[2022-06-02] MEDS: nitrofurantoin SR (BID) 100 mg Capsule PO ×2 (08:37→18:37)
[2022-06-02] MEDS: insulin glargine 100 units/1 mL 10 UNIT SUBCUT (08:38)
--- NOTE | 2022-06-02 08:38 | XR_ITS ---
WS: [id number] Right knee, AP and lateral views, 06/02/2022 Clinical Data: Follow-up right distal femur retrograde nail ORIF Comparison: Right thigh and femur, 05/28/2022 Findings: The long intramedullary teagan ending in the distal right femur remains in the same position. There are 4 transverse nails reducing a severely comminuted fracture of the distal right femur and holding the intramedullary teagan in position.There is severe demineralization of the right femur, proximal right ti scar and fibula. The right patella shows no change from before. XR/XR knee RT 1-2V [id number] Impression: No change in internal fixation of distal right femoral fracture.
--- NOTE | 2022-06-02 10:34 | P.PN_ITS ---
Subjective Subjective: Patient is complaining of knee pain Appreciate Dr. Morejon's recommendations Son told me that she was seen by trauma surgeon Dr. Galvan at [facility] in [place] I called his office who recommended transfer to [facility], I coordinated care and spoke with the nurse coordinator We will try to get in touch with [facility] transfer line to see if we can transfer her Dr. Almonte might see her next outpatient but I did tell him that patient is excruciating pain she want to stay in the hospital in pain until then Going to call [facility] today Vitals/I&O/Wt Last Vital Signs Temp 98.5 F 06/02/22 08:12 Pulse 70 06/02/22 08:12 Resp 15 06/02/22 08:40 BP 137/63 06/02/22 08:12 Pulse Ox 94 06/02/22 08:36 O2 Del Method 06/02/22 08:12 06/01/22 06/02/22 06/02/22 22:59 06:59 14:59 Intake Total 800 / 800 240 / 240 Balance 800 / 800 240 / 240 Weight last 48 hrs Weight 80.031 kg Physical Exam Narrative: Patient at rest is fine however right leg pain worsens on palpation No active signs of septic joint Any kind of movement would aggravate her pain Clinically euvolemic Awake and alert GCS 15 Currently on room air Hard of hearing Hemodynamically stable Data 06/01/22 04:29 06/02/22 05:12 A&P Assessment and plan (1) Avascular necrosis of femur head, right: (2) Hip osteoarthritis: (3) Type 2 diabetes mellitus: Qualifiers: Diabetes mellitus extermination supervisor insulin use: with half-way use Diabetes mellitus complication status: without complication Qualified Code(s): E11.9 - Type 2 diabetes mellitus without complications; Z79.4 - exterminator termite (current) use of insulin (4) Pancytopenia: (5) Sepsis: (6) Urinary tract infection: (7) Fever: (8) Altered mental status: (9) Portal hypertension: (10) Liver cirrhosis secondary to nonalcoholic steatohepatitis (LLOYD): (11) AVM (arteriovenous malformation) of colon with hemorrhage: Plan Avascular necrosis of hip going to touch base with [facility] in order to transfer her Spoke with trauma surgeon clinic at [facility] today Spoke with her son Appreciate Dr. Morejon's recommendations Currently continue analgesics with opioids along bowel regimen Metabolic encephalopathy related to UTI: Resolved Pancytopenia: Stable patient is hemodynamically stable Patient wanting to participate with PT OT SNF with excruciating pain due to avascular necrosis Portal hypertension history with hypersplenism DNR/DNI A lot of time was spent coordinating care calling her son to get the name of the surgeon, calling surgeons clinic, calling [facility] transfer line Attestations Medical Necessity Statement*: We will call [facility] transfer line who called [facility] transfer line Diagnoses Avascular necrosis of femur head, right M87.051 Hip osteoarthritis M16.9 Type 2 diabetes mellitus E11.9; Z79.4 Diabetes mellitus half-way insulin use: with extermination supervisor use Diabetes mellitus complication status: without complication Pancytopenia D61.818 Sepsis A41.9 Urinary tract infection N39.0 Fever R50.9 Altered mental status R41.82 Portal hypertension K76.6 Liver cirrhosis secondary to nonalcoholic steatohepatitis (LLOYD) K75.81; K74.60 AVM (arteriovenous malformation) of colon with hemorrhage K55.21
[2022-06-02 11:28] LABS: Glucose Point of Care 224 mg/dL (70-110)
[2022-06-02] MEDS: insulin lispro 100 unit/1 mL SUBCUT ×2 (12:18→18:37)
[2022-06-02 17:38] LABS: Glucose Point of Care 206 mg/dL (70-110)
[2022-06-02 18:59] LABS: SARS Covid-2 Antigen negative (Negative)
[2022-06-02 21:44] LABS: Glucose Point of Care 119 mg/dL (70-110)
[2022-06-02] MEDS: lidocaine 5% Patch 1 PATCH TOPICAL (21:56)
[2022-06-03] VITALS: BP 153/62; PULSE 71; RESP 21; TEMP 37.3; O2SAT 95
[2022-06-03 01:00] LABS: Glucose Point of Care 110 mg/dL (70-110)
[2022-06-03 05:16] VITALS: BP 134/69; PULSE 72; RESP 16; TEMP 37.1; O2SAT 96
[2022-06-03 05:31] VITALS: RESP 18; O2SAT 95
[2022-06-03] MEDS: oxyCODONE 5 mg IR Tab/Cap PO (05:31)
[2022-06-03 05:52] LABS: Basophils % 0.6 %; Eosinophils # 0.1 10^3/uL (0.0-0.8); Hematocrit 28.9 % (37.0-47.0); Hemoglobin 9.1 g/dL (11.5-15.3); Lymphocytes # 0.5 10^3/uL (0.8-4.8); Lymphocytes % 14.3 %; Mean Corpuscular HGB Conc 31.5 g/dL (30.0-36.0); Mean Corpuscular Hemoglobin 27.6 pg (28.0-34.0); Mean Corpuscular Volume 87.6 fl (81-99); Mean Platelet Volume 9.2 fL (7.4-10.4); Monocytes # 0.4 10^3/uL (0.2-0.9); Monocytes % 12.2 %; Neutrophils # 2.32 10^3/uL (1.8-7.7); Neutrophils % 69.3 %; Nucleated Red Blood Cells % 0 %; Platelet Count 131 10^3/cmm (130-400); White Blood Count 3.4 10^3/uL (4.0-10.0)
[2022-06-03 05:56] VITALS: BMI 31.2
[2022-06-03 06:16] LABS: Anion Gap 14.2 (5-19); Blood Urea Nitrogen 14 mg/dL (8-23); Calcium 8.1 mg/dL (8.5-10.5); Carbon Dioxide 21 mmol/L (22-29); Chloride 98 mmol/L (98-107); Glucose 107 mg/dL (65-115); Osmolality Calculated 269 mOsm/kg (285-295); Potassium 4.2 mmol/L (3.5-5.1); Sodium 129 mmol/L (136-145)
[2022-06-03] MEDS: spironolactone 25 mg Tablet PO (06:18)
[2022-06-03 06:52] LABS: Glucose Point of Care 106 mg/dL (70-110)
--- NOTE | 2022-06-03 07:03 | P.PN_ITS ---
Subjective Subjective: Talk with her son and trauma surgeon from [facility] He recommended follow-up appointment on 13 June which is Monday, this cannot be done inpatient, patient will be discharged to SNF She is agreeable We will update her son Today much more comfortable as compared to yesterday Resting comfortably Vitals/I&O/Wt Last Vital Signs Temp 98.8 F 06/03/22 05:16 Pulse 72 06/03/22 05:16 Resp 18 06/03/22 05:31 BP 134/69 06/03/22 05:16 Pulse Ox 95 06/03/22 05:31 O2 Del Method 06/03/22 05:16 O2 Flow Rate 2 06/02/22 20:00 Weight last 48 hrs Weight 80.031 kg Weight 80.031 kg Physical Exam Narrative: Patient resting comfortably Hemodynamically stable Currently normal GCS 15 Awake and alert S1, S2 No active pain Pleasant cooperative Nonfocal neuro exam No audible stridor or wheezing Data 06/03/22 05:33 06/03/22 05:33 Micro: Microbiology 05/28/22 16:43 Blood Culture - Final Blood NO GROWTH AFTER 5 DAYS 05/28/22 16:37 Blood Culture - Final Blood NO GROWTH AFTER 5 DAYS A&P Assessment and plan (1) Avascular necrosis of femur head, right: (2) Metabolic acidosis: (3) Hip osteoarthritis: (4) Type 2 diabetes mellitus: Qualifiers: Diabetes mellitus extermination inspector insulin use: with halfway use Diabetes mellitus complication status: without complication Qualified Code(s): E11.9 - Type 2 diabetes mellitus without complications; Z79.4 - long-term (current) use of insulin (5) Pancytopenia: (6) Sepsis: (7) Urinary tract infection: (8) Fever: (9) Altered mental status: (10) Portal hypertension: (11) Liver cirrhosis secondary to nonalcoholic steatohepatitis (LLOYD): (12) AVM (arteriovenous malformation) of colon with hemorrhage: Plan Avascular necrosis of hip Dr. Snyder from [facility] has given her appointment on 13 June For now patient will go to SNF Procedure cannot be done inpatient as per the trauma surgeon UTI: Resolved she is getting p.o. antibiotics for E. coli Metabolic encephalopathy: Resolved Liver cirrhosis with pancytopenia: Stable No acute decompensation of liver cirrhosis with hepatic encephalopathy Patient is awake and alert x3 GCS 15 DNR/DNI Awaiting SNF placement Hemoglobin stable Son updated Patient is not agitated at all, she gets pain which is excruciating that makes her very anxious and she starts crying she has been requiring opioids quite frequently, avascular necrosis likely be very painful unfortunately she will not be able to see a surgeon until 13 June at [facility] Attestations Medical Necessity Statement*: Continue medical management, awaiting placed Diagnoses Avascular necrosis of femur head, right M87.051 Metabolic acidosis E87.20 Hip osteoarthritis M16.9 Type 2 diabetes mellitus E11.9; Z79.4 Diabetes mellitus halfway insulin use: with halfway use Diabetes mellitus complication status: without complication Pancytopenia D61.818 Sepsis A41.9 Urinary tract infection N39.0 Fever R50.9 Altered mental status R41.82 Portal hypertension K76.6 Liver cirrhosis secondary to nonalcoholic steatohepatitis (LLOYD) K75.81; K74.60 AVM (arteriovenous malformation) of colon with hemorrhage K55.21
[2022-06-03 07:38] VITALS: BP 160/71; PULSE 71; RESP 16; TEMP 37.3; O2SAT 94
--- NOTE | 2022-06-03 09:18 | P.DS_ITS ---
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 (2) Pancytopenia: Status: Acute (3) Sepsis: Status: Acute (4) Urinary tract infection: Status: Acute (5) Altered mental status: Status: Acute (6) Fever: Status: Acute (7) Closed fracture of neck of right humerus: Status: Acute (8) Insomnia: Status: Acute Qualifiers: Insomnia type: psychophysiologic Qualified Code(s): F51.04 - Psychophysiologic insomnia (9) Acute cystitis: Status: Acute (10) Hepatic encephalopathy: Status: Acute (11) Closed fracture of right distal femur: Status: Acute Qualifiers: Encounter type: initial encounter Fracture morphology: other fracture Qualified Code(s): S72.491A - Other fracture of lower end of right femur, initial encounter for closed fracture (12) Femur fracture, right: Status: Acute Qualifiers: Encounter type: initial encounter Femur location: distal, unspecified portion Fracture morphology: unspecified fracture morphology Fracture type: closed Qualified Code(s): S72.401A - Unspecified fracture of lower end of right femur, initial encounter for closed fracture (13) Portal hypertension: Status: Chronic Permanent problem details: EGD esophageal banding on 03/25/16 she has been transfused multiple times (14) Liver cirrhosis secondary to nonalcoholic steatohepatitis (MENARD): Status: Chronic (15) 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 She was treated with meropenem, her urine culture showed E. coli which is not ESBL this time, sensitive to ceftriaxone nitrofurantoin and Augmentin. Patient mentation improved with IV antibiotics, she does complain excruciating back pain and right arm pain which is chronic for her she does have destructive right hip area from previous fracture, right arm fracture is being managed medically with a sling. Patient is not eating very well her appetite is poor that is why we have decided to cut back on her insulin to 10 units, she is at risk of dehydration I would not give her Bumex 1 mg which was her home dose, she can continue taking spironolactone for her portal hypertension and take Lasix on as-needed basis with potassium. Blood cultures negative. Dr. Morejon was consulted who recommended evaluation by trauma orthopedic surgeon. [facility] Dr [place]te was contacted who recommended outpatient evaluation on 13 of June, for now patient will go to SNF as per the trauma surgeon her procedure will be done in multiple stages because of multiple hardware Patient received 5 days of antibiotics for UTI, take Lasix on as-needed basis along potassium, continue spironolactone and mirtazapine which she takes for insomnia CODE STATUS DNR/DNI Physical Exam Narrative: Resting comfortably Awake and alert GCS 15 Hemodynamically stable Currently on room air Asking for water Abdomen soft No audible stridor or wheezing S1, S2 No active signs of confusion ? Discharge Data Studies Completed and Pending Completed Studies During Hospitalization Category Date Time Status CT abdomen pelvis wo con [id number] Stat Cat Scan 05/28/22 19:[address] head wo con* [id number] Stat Cat Scan 05/28/22 16:51 Completed XR chest 1V portable [id number] Stat Exams 05/28/22 16:18 Completed XR femur RT min 2V* [id number] Stat Exams 05/28/22 16:51 [place] [id number] Stat Exams 05/28/22 16:51 Completed XR wrist RT min 3V* [id number] Stat Exams 05/28/22 16:55 Completed US venous duplex lower extremity bilat [CV venous Ultrasound 05/30/22 10:12 [place] [id number]] Routine Pending at discharge Category Date Time Status Blood Culture Stat Lab 05/28/22 16:43 Results CMP [Comprehensive Metabolic Panel] AM LABS Lab 06/01/22 04:00 Ordered Complete Blood Count w/Auto AM LABS Lab 06/01/22 04:00 Ordered MAG [Magnesium] AM LABS Lab 06/01/22 04:00 Ordered MRSA by PCR Routine Lab 05/28/22 19:46 Uncollected PHOS [Phosphorus] AM LABS Lab 06/01/22 04:00 Ordered PRBC [Leukocyte Reduced RBC] Routine Lab 05/30/22 12:19 Results Type and Screen Routine Lab 05/30/22 12:19 Results Vancomycin Trough Timed Lab 05/31/22 16:00 Ordered Radiology Impressions Chest X-Ray 05/28/22 16:18 IMPRESSION: No acute findings. Femur X-Ray 05/28/22 16:51 IMPRESSION: No acute findings. Head CT 05/28/22 16:51 IMPRESSION: No acute intracranial abnormality. Humerus X-Ray 05/28/22 16:51 IMPRESSION: Fracture deformity of the right humeral head. Wrist X-Ray 05/28/22 16:55 IMPRESSION: 1. No acute findings. 2. Old fracture deformity of the distal radius. Abdomen/Pelvis CT 05/28/22 19:48 IMPRESSION: 1. Hepatic cirrhosis with associated splenomegaly. 2. Cardiomegaly. In association with small bilateral pleural effusions, findings are consistent with congestive heart failure. Please correlate clinically. 3. Multivessel atherosclerotic disease which involves the coronary arteries. 4. Destructive and postoperative changes in the right hemipelvis appears similar to the prior study. Laboratory Results WBC 2.5 10^3/uL (4.0-10.0) L 05/31/22 05:18 RBC 3.43 10^6/uL (4.1-5.3) L 05/31/22 05:18 Hgb 9.5 g/dL (11.5-15.3) L D 05/31/22 05:18 Hct 30.5 % (37.0-47.0) L 05/31/22 05:18 MCV 88.9 fl (81-99) 05/31/22 05:18 MCH 27.7 pg (28.0-34.0) L 05/31/22 05:18 MCHC 31.1 g/dL (30.0-36.0) 05/31/22 05:18 RDW 14.5 % (12.1-15.1) 05/31/22 05:18 Plt Count 112 10^3/cmm (130-400) L D 05/31/22 05:18 MPV 10.3 fL (7.4-10.4) 05/31/22 05:18 Neut % (Auto) 61.6 % 05/31/22 05:18 Lymph % (Auto) 20.6 % 05/31/22 05:18 [place] % (Auto) 13.4 % 05/31/22 05:18 Eos % (Auto) 2.8 % 05/31/22 05:18 Baso % (Auto) 0.8 % 05/31/22 05:18 Neut # (Auto) 1.52 10^3/uL (1.8-7.7) L 05/31/22 05:18 Lymph # (Auto) 0.5 10^3/uL (0.8-4.8) L 05/31/22 05:18 [place] # (Auto) 0.3 10^3/uL (0.2-0.9) 05/31/22 05:18 Eos # (Auto) 0.1 10^3/uL (0.0-0.8) 05/31/22 05:18 Baso # (Auto) 0.0 10^3/uL (0.0-0.1) 05/31/22 05:18 Nucleated RBC % (auto) 0 % 05/31/22 05:18 Nucleated RBCs # 0.0 /100WBC 05/31/22 05:18 PT 14.10 SECONDS (12.1-14.9) 05/28/22 16:31 INR 1.06 (0.8-1.2) 05/28/22 16:31 D-Dimer 2.91 ug/mIFEU (0-0.59) H 05/28/22 16:31 Sodium 136 mmol/L (136-145) 05/31/22 05:18 Potassium 4.5 mmol/L (3.5-5.1) 05/31/22 05:18 Chloride 105 mmol/L (98-107) 05/31/22 05:18 Carbon Dioxide 16 mmol/L (22-29) L 05/31/22 05:18 Anion Gap 19.5 (5-19) H 05/31/22 05:18 BUN 30 mg/dL (8-23) H 05/31/22 05:18 Creatinine 0.7 mg/dL (0.5-0.9) 05/31/22 05:18 GFR Calculation Not Reportable 05/31/22 05:18 Glucose 127 mg/dL (65-115) H 05/31/22 05:18 POC Glucose 195 mg/dL (70-110) H 05/31/22 10:20 Estimat Average Glucose 123 05/29/22 04:25 Hemoglobin A1c 5.9 % (4.0-6.0) 05/29/22 04:25 Calculated Osmolality 290 mOsm/kg (285-295) 05/31/22 05:18 Lactic Acid 1.9 mmol/L (0.5-2.2) 05/28/22 16:31 Calcium 8.4 mg/dL (8.5-10.5) L 05/31/22 05:18 Phosphorus 2.2 mg/dL (2.5-4.5) L 05/29/22 04:25 Magnesium 1.9 mg/dL (1.7-2.3) 05/30/22 05:16 Iron 34 ug/dL (37-145) L 05/28/22 16:31 TIBC 310 mcg/dl 05/28/22 16:31 % Saturation 10.9 % (20-50) L 05/28/22 16:31 Unsat Iron Binding 276 ug/dL (112-347) 05/28/22 16:31 Total Bilirubin 1.3 mg/dL (0.15-1.2) H 05/31/22 05:18 AST 35 U/L (0-32) H 05/31/22 05:18 ALT 12 U/L (0-33) 05/31/22 05:18 Alkaline Phosphatase 109 U/L (35-105) H 05/31/22 05:18 Ammonia 37 umol/L (11-51) 05/28/22 19:18 Creatine Kinase 39 U/L (26-192) 05/28/22 16:31 Total Protein 6.1 g/dL (6.6-8.7) L 05/31/22 05:18 Albumin 3.0 g/dL (3.5-5.2) L 05/31/22 05:18 Globulin 3.1 g/dL (1.3-4.6) 05/31/22 05:18 Triglycerides 81 mg/dL (0-150) 05/29/22 04:25 Cholesterol 104 mg/dL (0-200) 05/29/22 04:25 LDL Cholesterol, Calc 31 mg/dL (50-129) L 05/29/22 04:25 Total VLDL Cholesterol 16 mg/dL (0-30) 05/29/22 04:25 HDL Cholesterol 57 mg/dL (60-100) L 05/29/22 04:25 Cholesterol/HDL Ratio 1.82 mg/dL (0.0-4.40) 05/29/22 04:25 Folate 18.9 ng/mL (4.8-37.3) 05/28/22 20:30 Procalcitonin 0.24 ng/mL (0-0.5) 05/28/22 16:31 TSH 0.72 uIU/mL (0.27-4.20) 05/28/22 16:31 Urine Color Yellow (Yellow) 05/28/22 16:22 Urine Appearance Sl hazy (CLEAR) A 05/28/22 16:22 Urine pH 6.5 (5-7) 05/28/22 16:22 Ur Specific [place] 1.010 (1.005-1.030) 05/28/22 16:22 Urine Protein Trace (Negative) 05/28/22 16:22 Urine Glucose (UA) Norm (Normal) 05/28/22 16:22 Urine Ketones Negative (Negative) 05/28/22 16:22 Urine Blood Neg (Negative) 05/28/22 16:22 Urine Nitrate Positive (Negative) H 05/28/22 16:22 Urine Bilirubin Neg (Negative) 05/28/22 16:22 Urine Urobilinogen Norm mg/dL (Negative) 05/28/22 16:22 Ur Leukocyte Esterase 2+ (Negative) H 05/28/22 16:22 Urine RBC 0-4 /hpf (0-2) H 05/28/22 16:22 Urine WBC 55-80 /hpf (0-5) H 05/28/22 16:22 Ur Squamous Epith Cells 0-4 /hpf (0-5) H 05/28/22 16:22 Amorphous Sediment Not Reportable 05/28/22 16:22 Urine Bacteria 4+ /hpf (NONE) H 05/28/22 16:22 Salicylates < 0.3 mg/dL (3-10) L 05/28/22 16:31 Urine Opiates Screen Negative ng/mL (Negative) 05/28/22 16:22 Acetaminophen 5.5 ug/mL (10-30) L 05/28/22 16:31 Ur Barbiturates Screen Negative ng/mL (Negative) 05/28/22 16:22 Ur Phencyclidine Scrn Negative ng/mL (Negative) 05/28/22 16:22 Ur Amphetamines Screen Negative ng/mL (Negative) 05/28/22 16:22 U Benzodiazepines Scrn Negative ng/mL (Negative) 05/28/22 16:22 Urine Cocaine Screen Negative ng/mL (Negative) 05/28/22 16:22 U Marijuana (THC) Screen Negative ng/mL (Negative) 05/28/22 16:22 Ethyl Alcohol < 10 mg/dL (0-10) 05/28/22 16:31 Coronavirus 229E (PCR) Not detected (NOT DETECT) 05/28/22 19:40 SARS-CoV-2 (PCR) Not detected (NOT DETECT) 05/28/22 19:40 Blood Type O Positive 05/30/22 12:19 Rho(D) Type Positive 05/30/22 12:19 Antibody Screen Negative 05/30/22 12:19 Crossmatch See Detail 05/30/22 12:19 Vitals Last Vital Signs Temp 98.2 F 05/31/22 08:21 Pulse 81 05/31/22 08:21 Resp 16 05/31/22 11:11 BP 155/73 05/31/22 08:21 Pulse Ox 93 05/31/22 08:21 O2 Del Method 05/31/22 08:21 Discharge Plan Discharge Patient Disposition: Xfer SNF Condition: Stable Prescriptions: New oxycodone 10 mg tablet 10 mg PO DAILY PRN (Reason: pain) Qty: 20 0RF furosemide [Lasix] 20 mg tablet 20 mg PO DAILY PRN (Reason: weight gain) Qty: 30 0RF Rx Instructions: >3lbs in 1 day amoxicillin-pot clavulanate 875-125 mg tablet 1 tab PO BID Qty: 10 0RF potassium chloride 10 mEq tablet extended release 10 meq PO PRN PRN (Reason: With Lasix only) Qty: 30 0RF lactulose 10 gram packet 10 g PO DAILY Qty: 15 0RF Continued ferrous sulfate 325 mg (65 mg iron) Tablet 325 mg PO BID@07,17 insulin lispro [Humalog KwikPen Insulin] 100 unit/mL Insulin Pen See Rx Instructions .ROUTE .COMPLEX Rx Instructions: sliding scale before meals and at bedtime 140-175=2 units 176-200=3 units 201-250=5 units 251-299=7 units 300 plus =9 units mirtazapine 7.5 mg tablet 7.5 mg PO BEDTIME@19 Qty: 30 1RF acetaminophen 500 mg Tablet 1,000 mg PO Q6H PRN (Reason: Pain) magnesium hydroxide [Milk of Magnesia] 400 mg/5 mL Suspension 30 ml PO DAILY PRN (Reason: Constipation) Xifaxan 550 mg tablet 550 mg PO BID Qty: 60 1RF pantoprazole 40 mg tablet,delayed release (DR/EC) 40 mg PO BID Qty: 60 2RF bisacodyl [Dulcolax (bisacodyl)] 10 mg Suppository 10 mg NE DAILY PRN (Reason: Constipation) Fleet Enema 19-7 gram/118 mL Enema 118 ml NE DAILY PRN (Reason: Constipation) Women's 50 Plus Daily Formula 400 mcg-500 mg calcium-20 mcg Tablet 1 tab PO DAILY ondansetron HCl 8 mg Tablet 8 mg PO Q8H PRN (Reason: Nausea) spironolactone 25 mg tablet 25 mg PO DAILY@07 Qty: 30 3RF oxycodone 5 mg tablet 5 mg PO Q6H PRN (Reason: pain) 7 Days Qty: 20 0RF Changed insulin glargine [Lantus Solostar U-100 Insulin] 100 unit/mL (3 mL) insulin pen 10 unit SUBCUT DAILY@08 Qty: 15 0RF Discontinued bumetanide 1 mg tablet 1 mg PO DAILY Qty: 60 1RF Discharge Orders: Discharge Order (Routine); Ordered 06/03/22 Ordered By: Maritza Fitzpatrick Referrals: Che Holt DO [Primary Care Provider] - 06/07/22 2:45 pm Discharge Attestations Time Spent in Discharge Care*: less than 30 min Status at Discharge: Cognitive status at discharge: cognitively intact , Behavioral status at discharge: cooperative , Quality Metrics Clinical Quality Measures [ No reported AMI, CVA or VTE this stay] Coding Level of Care Code Acute Code for [facility] Fwd Diagnoses Type 2 diabetes mellitus E11.9; Z79.4 Diabetes mellitus complication status: without complication Diabetes mellitus alf insulin use: with alf use Pancytopenia D61.818 Sepsis A41.9 Urinary tract infection N39.0 Altered mental status R41.82 Fever R50.9 Closed fracture of neck of right humerus S42.211A Insomnia F51.04 Insomnia type: psychophysiologic Acute cystitis N30.00 Hepatic encephalopathy K76.82 Closed fracture of right distal femur S72.491A Encounter type: initial encounter Fracture morphology: other fracture Femur fracture, right S72.401A Encounter type: initial encounter Femur location: distal, unspecified portion Fracture morphology: unspecified fracture morphology Fracture type: closed Portal hypertension K76.6 Liver cirrhosis secondary to nonalcoholic steatohepatitis (MENARD) K75.81; K74.60 AVM (arteriovenous malformation) of colon with hemorrhage K55.21
[2022-06-03] MEDS: docusate sodium 100 mg Capsule PO (09:29)
[2022-06-03] MEDS: insulin glargine 100 units/1 mL 10 UNIT SUBCUT (09:29)
[2022-06-03] MEDS: nitrofurantoin SR (BID) 100 mg Capsule PO (09:29)
[2022-06-03] MEDS: potassium chloride ER 20 mEq Tablet PO (09:29)
[2022-06-03] MEDS: lidocaine 5% Patch 1 PATCH TOPICAL (09:30)
--- NOTE | 2022-06-03 10:03 | PC.NURSE ---
Upon skin assessment, reddened excoriation noted to bilateral groin area. No open areas noted at this time. I spoke with Dr. Fitzpatrick and he provided verbal order for Nystatin powder to be applied BID to excoriated areas.
[2022-06-03 11:34] VITALS: BP 145/73; PULSE 69; RESP 18; TEMP 36.7; O2SAT 94
[2022-06-03 11:51] LABS: Glucose Point of Care 147 mg/dL (70-110)
== END 2022-06-03 14:31 | disposition skilled nursing facility (03) | DRG 871 ==
LOC: ER 19:14 → MEDSURG 20:10
PROVIDERS: Internal Medicine; Admitting Provider Student in an Organized Health Care Education/Training Program; Emergency Provider Emergency Medicine; PCP Family Medicine; Visit Provider Internal Medicine
DX: A41.9 Sepsis, unspecified organism (principal); G93.41 Metabolic encephalopathy; K55.21 Angiodysplasia of colon with hemorrhage; N30.00 Acute cystitis without hematuria; S52.501A Unspecified fracture of the lower end of right radius, initial encounter for closed fracture; S42.211A Unspecified displaced fracture of surgical neck of right humerus, initial encounter for closed fracture; S72.491A Other fracture of lower end of right femur, initial encounter for closed fracture; D61.818 Other pancytopenia; K76.6 Portal hypertension; E87.20 Acidosis, unspecified; E87.1 Hypo-osmolality and hyponatremia; M87.251 Osteonecrosis due to previous trauma, right femur; K76.82 Hepatic encephalopathy; B96.20 Unspecified Escherichia coli [E. coli] as the cause of diseases classified elsewhere; G89.29 Other chronic pain; X58.XXXA Exposure to other specified factors, initial encounter; K74.60 Unspecified cirrhosis of liver; K75.81 Nonalcoholic steatohepatitis (NASH); D64.9 Anemia, unspecified; F51.04 Psychophysiologic insomnia; E87.6 Hypokalemia; E11.9 Type 2 diabetes mellitus without complications; M16.11 Unilateral primary osteoarthritis, right hip; E86.0 Dehydration; Z66 Do not resuscitate; Z79.4 Long term (current) use of insulin; Z98.890 Other specified postprocedural states
CPT/HCPCS: 36415; 36416; 36430; 70450; 71045; 73060; 73110; 73552; 73560; 74176; 80048; 80053; 80061; 80306; 80307; 81001; 82140; 82550; 82746; 82962; 83036; 83540; 83550; 83605; 83735; 84100; 84145; 84443; 85025; 85378; 85610; 86403; 86850; 86900; 86905; 86920; 86922; 87040; 87077; 87086; 87186; 87426; 87449; 87635; 92507; 92523; 92526; 92610; 93970; 96365; 96367; 96372; 97110; 97161; 97167; 97530; 97535; 99285; J1170; J1815; J2185; J2270; J2405; J2543; J3370; J3475; J7030; J7050; P9016; Q3014

== ENCOUNTER 2022-06-30 08:31 | Outpatient (RCR) | payer MEDICARE, MEDICAID, SELFPAY ==
[2022-06-30] VITALS (9 sets, daily range): BP systolic 110–147; BP diastolic 47–66; PULSE 72–82; RESP 18; TEMP 36.8–37.2; O2SAT 97–99
[2022-06-30 08:53] LABS: Hematocrit 26.1 % (37.0-47.0); Hemoglobin 7.9 g/dL (11.5-15.3)
--- NOTE | 2022-06-30 09:08 | PC.NURSE ---
Pt to GI infusions for transfusion of 2 units PRBCs. Hg today 7.9. Transfusion started as ordered. No reaction noted.
[2022-06-30] MEDS: sodium chloride 0.9% 100 mL Bag 50 ML IV ×2 (09:09→11:02)
== END 2022-07-24 23:59 | disposition home or self-care (01) ==
LOC: GILAB 08:31
PROVIDERS: PCP Family Medicine; Visit Provider Nurse Practitioner Family
DX: D64.9 Anemia, unspecified (principal)
CPT/HCPCS: 36415; 36430; 85014; 85018; 86850; 86900; 86905; 86920; P9016

== ENCOUNTER 2022-07-01 17:15 | Inpatient (IN) | payer MEDICARE, MEDICAID, SELFPAY ==
[2022-07-01] VITALS (17 sets, daily range): BP systolic 105–157; BP diastolic 45–97; PULSE 82–117; RESP 13–24; TEMP 37–37.4; O2SAT 93–100
--- NOTE | 2022-07-01 17:17 | ED_ITS ---
HPI - GI Bleed General: Chief complaint: Altered Mental Status Stated complaint: GI bleed/AMS Time Seen by Provider: 07/01/22 17:16 Limitations: altered mental status History of Present Illness: Ms Moore is a 76-year-old lady with complex past medical history including recurrent GI bleed presenting to the emergency department for GI bleed and mental status change. Apparently she was seen in the infusion center and received transfusion for continued GI bleed secondary to AV malformation yesterday. Perhaps 1 hour, though not entirely clear, prior to arrival patient became more confused. History is otherwise limited by mental state. 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 difficile colitis Cerebral aneurysm Closed fracture of neck of right humerus Closed fracture of right distal femur Diverticulosis Femur fracture, right Fever Fluid overload Fracture of distal end of right radius GI bleed Esophageal variceal banding on 2 occasions in the past, EGD colonoscopy October 2015 upper endoscopy showed esophageal varices with no bleeding or stigmata of bleeding. Colonoscopy showed multiple AVMs in the ascending and proximal transverse colon which were cauterized. Extensive diverticulosis with internal and external hemorrhoids were noted. 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 (LLOYD) Metabolic acidosis LLOYD (nonalcoholic steatohepatitis) Pancytopenia Portal hypertension EGD esophageal banding on 03/25/16 she has been transfused multiple times Right leg swelling Sepsis Type 2 diabetes mellitus Urinary tract infection Surgical History S/P endoscopy Family History Other Family history non-contributory Social History Smoking and tobacco status: never smoked Alcohol intake: never Housing: House Physical Exam Const: COMMON NORMALS: alert GENERAL APPEARANCE: ill appearing HENMT: COMMON NORMALS: normocephalic and atraumatic HEAD & SCALP: normocephalic and atraumatic THROAT: posterior oropharynx normal Eye: COMMON NORMALS: conjunctivae normal CONJUNCTIVA: Yes conjunctivae normal SCLERA: sclerae normal Neck/C-Spine: COMMON NORMALS: supple GENERAL: Yes trachea midline Resp: COMMON NORMALS: clear to auscultation bilaterally EFFORT & INSPECTION: Yes able to speak in complete sentences AUSCULTATION: clear to auscultation bilaterally Cardio: COMMON NORMALS: regular rate and regular rhythm RATE: regular rate RHYTHM: regular rhythm GI: COMMON NORMALS: Soft to palpation PALPATION: Yes Soft to palpation and No Tenderness to palpation present (GI) Extremity: GENERAL: Yes normal exam except as noted and No edema Neuro: COMMON NORMALS: moves all extremities SENSORIUM/ORIENTATION: Yes alert and Yes Orientation impaired OTHER: Patient does not regard or appear to see visual field threat, she does withdraw to pain from all 4 extremities. Psych: MEMORY/COGNITION: Yes cognition grossly impaired Course Vital Signs: Vital signs: Vital Signs Temperature 97.7 F 07/02/22 20:00 Pulse Rate 109 H 07/02/22 20:30 Respiratory Rate 20 H 07/02/22 21:01 Blood Pressure 136/75 07/02/22 20:30 Pulse Oximetry 97 07/02/22 20:30 Oxygen Delivery Me thod Room Air 07/02/22 13:00 MDM - GI Bleed Medical Decision Making 76-year-old lady presenting due to altered mental status. Patient is quite altered on exam and history is quite limited. She appears globally encephalopathic though does have a high NIHSS. Patient has contraindication to tPA including thrombocytopenia and known AVM of the colon requiring multiple transfusions including transfusion yesterday. EKG demonstrates sinus rhythm with left axis deviation, normal intervals, no STEMI. Labs demonstrate chronic leukopenia, hemoglobin proved prior posttransfusion, thrombocytopenia again noted. INR is mildly elevated. ABG with mild respirato ry alkalosis. Metabolic panel with perhaps mild dehydration. Negative range 2- hour delta troponin. Ammonia level is markedly elevated. Urinalysis pending. Given altered mental status and agitation patient did require mild anxiolysis and analgesia for completion of ED evaluation. Lactulose ordered. Most likely cause of patient symptoms is hepatic encephalopathy. Discussed with hospitalist service who was agreeable to admit patient. Medical Records I reviewed the patient's medical records. Lab Data I reviewed the patient's lab results. 07/02/22 18:00 07/02/22 03:38 Radiology Impressions Chest X-Ray 07/01/22 17:21 IMPRESSION: No acute abnormality demonstrated. Head CT 07/01/22 17:21 IMPRESSION: 1. Postop change of the left temporal bone with cochlear implant demonstrated. 2. Right anterior aneurysm clip demonstrated, unchanged. 3. No acute intracranial abnormality demonstrated. 4. There is no interval change from the prior examination. ASSESSMENT: ASPECTS ([place] Stroke Program Early CT Score) is 10. Head/Neck CTA 07/01/22 17:51 IMPRESSION: 1. No large vessel occlusion or high-grade stenosis. 2. Previous right paraclinoid aneurysm clipping postoperative changes. No residual recurrent aneurysm identified. IMPRESSION: 1. Negative CTA of the neck. 2. Moderate right pleural effusion with adjacent atelectasis. COMMENTS: Consistent with the [employer]'s Incidental Findings Committee white paper (J Am Misael Radiol 2015): In patients aged 35 years and older with an incidental thyroid nodule equal to or greater than 1.[address], MRI or extrathyroidal US, further evaluation with dedicated thyroid US is recommended for patients with normal life expectancy and without comorbidities. For smaller nodules without suspicious features, no further evaluation or follow up is recommended. REFERENCES: NASCET CRITERIA. The degree of stenosis in the cervical segment of the internal carotid artery is based on NASCET criteria. Normal is no stenosis. Mild is less than 50% stenosis. Moderate is 50-69% stenosis. Severe is 70% to 99% stenosis. Total occlusion is no detectable patent lumen. Laboratory Results WBC 3.4 10^3/uL (4.0-10.0) L 07/01/22 17:20 RBC 3.65 10^6/uL (4.1-5.3) L 07/01/22 17:20 Hgb 9.5 g/dL (11.5-15.3) L 07/01/22 17:20 Hct 30.3 % (37.0-47.0) L 07/01/22 17:20 MCV 83.0 fl (81-99) 07/01/22 17:20 MCH 26.0 pg (28.0-34.0) L 07/01/22 17:20 MCHC 31.4 g/dL (30.0-36.0) 07/01/22 17:20 RDW 15.6 % (12.1-15.1) H 07/01/22 17:20 Plt Count 46 10^3/cmm (130-400) L 07/01/22 17:20 MPV 9.9 fL (7.4-10.4) 07/01/22 17:20 Neut % (Auto) 59.7 % 07/01/22 17:20 Lymph % (Auto) 24.8 % 07/01/22 17:20 Gilliam % (Auto) 10.8 % 07/01/22 17:20 Eos % (Auto) 2.6 % 07/01/22 17:20 Baso % (Auto) 1.2 % 07/01/22 17:20 Neut # (Auto) 2.05 10^3/uL (1.8-7.7) 07/01/22 17:20 Lymph # (Auto) 0.9 10^3/uL (0.8-4.8) 07/01/22 17:20 Gilliam # (Auto) 0.4 10^3/uL (0.2-0.9) 07/01/22 17:20 Eos # (Auto) 0.1 10^3/uL (0.0-0.8) 07/01/22 17:20 Baso # (Auto) 0.0 10^3/uL (0.0-0.1) 07/01/22 17: Nucleated RBC % (auto) 0 % 07/01/22 17: Nucleated RBCs # 0.0 /100WBC 07/01/22 17:20 PT 17.00 SECONDS (12.1-14.9) H 07/01/22 17:20 INR 1.34 (0.8-1.2) H 07/01/22 17:20 APTT 32.4 SECONDS (23.9-36.7) 07/01/22 17:20 Specimen Type Arterial 07/01/22 18:38 Sample Site Radial, left 07/01/22 18:38 ABG pH 7.48 (7.35-7.45) H 07/01/22 18:38 ABG pCO2 27.1 mmHg (35-45) L 07/01/22 18:38 ABG pO2 81.4 mmHg (80.0-100.0) 07/01/22 18:38 ABG HCO3 20.4 mmol/L (22-26) L 07/01/22 18:38 ABG Base Excess -2.4 mmol/L (-2.0-2.0) L 07/01/22 18:38 Laurent Test Pos 07/01/22 18:38 Hematocrit 27.6 % (37-47) L 07/01/22 18:38 O2 Delivery Device Room air 07/01/22 18:38 Fraud Prevention Analyst ID Cak 07/01/22 18:38 Sodium 137 mmol/L (136-145) 07/01/22 17:20 Potassium 4.6 mmol/L (3.5-5.1) 07/01/22 17:20 Chloride 105 mmol/L (98-107) 07/01/22 17:20 Carbon Dioxide 19 mmol/L (22-29) L 07/01/22 17:20 Anion Gap 17.6 (5-19) 07/01/22 17:20 BUN 17 mg/dL (8-23) 07/01/22 17:20 Creatinine 0.7 mg/dL (0.5-0.9) 07/01/22 17:20 GFR Calculation Not Reportable 07/01/22 17:20 Glucose 100 mg/dL (65-115) 07/01/22 17:20 POC Glucose 103 mg/dL (70-110) 07/01/22 17:48 Estimat Average Glucose 108 07/01/22 17:35 Hemoglobin A1c 5.4 % (4.0-6.0) 07/01/22 17:35 Calculated Osmolality 286 mOsm/kg (285-295) 07/01/22 17:20 Calcium 8.2 mg/dL (8.5-10.5) L 07/01/22 17:20 Total Bilirubin 0.9 mg/dL (0.15-1.2) 07/01/22 17:20 AST 17 U/L (0-32) 07/01/22 17:20 ALT 7 U/L (0-33) 07/01/22 17:20 Alkaline Phosphatase 150 U/L (35-105) H 07/01/22 17:20 Ammonia 100 umol/L (11-51) H 07/01/22 17:35 Troponin T Baseline 21 ng/L (0-10) H 07/01/22 17:20 Troponin T 120 Minute 20.40 ng/L (0-10) H 07/01/22 19:20 Delta Troponin T -0.60 ABS# (0-10) L 07/01/22 19:20 C-Reactive Protein 68.0 mg/L (0.0-4.9) H 07/01/22 17:20 Total Protein 6.2 g/dL (6.6-8.7) L 07/01/22 17:20 Albumin 2.9 g/dL (3.5-5.2) L 07/01/22 17:20 Globulin 3.3 g/dL (1.3-4.6) 07/01/22 17:20 Lipase 27 U/L (13-60) 07/01/22 17:20 Procalcitonin 0.12 ng/mL (0-0.5) 07/01/22 19:20 TSH 1.12 uIU/mL (0.27-4.20) 07/01/22 19:20 Critical Care Time Critical Care Time: Critical Care Time: Yes Total Critical Care Time: 35 Attestation: Due to a high probability of clinically significant, possibly life threatening deterioration, the patient required my highest level of attention and preparedness to intervene emergently and I personally spent this critical care time directly and personally managing the patient. This critical care time included obtaining a history; examining the patient; pulse oximetry; ordering and review of laboratory and imaging studies; arranging urgent treatment with development of a management plan; evaluation of patient's response to treatment; frequent reassessment; and, discussions with other providers as applicable. It was exclusive of separately billable procedures. Primary system involved is metabolic Discharge Plan Discharge Patient Disposition: Admitted As Inpatient Admit Provider: Jennifer Tellez Clinical Impression: Altered mental status, Acute hepatic encephalopathy Condition: Stable Coding Level of Care Code ED Graduate Student Instructor for Erika Camacho
--- NOTE | 2022-07-01 17:21 | CTR_ITS ---
PROCEDURE INFORMATION: Exam: CT Head Without Contrast Exam date and time: 07/01/2022 5:39 PM Age: 76 years old Clinical indication: Stroke-like symptoms; Altered mental status/memory loss; Additional info: AMS TECHNIQUE: Imaging protocol: Computed tomography of the head without contrast. Radiation optimization: All CT scans at this facility use at least one of these dose optimization techniques: automated exposure control; mA and/or kV adjustment per patient size (includes targeted exams where dose is matched to clinical indication); or iterative reconstruction. Other technique: STROKE PROTOCOL was implemented. REPORTING DATA: Count of CT and Cardiac NM exams in prior 12 months: This patient has received 8 known CTs and 0 known cardiac nuclear medicine studies in the 12 months prior to the current study. COMPARISON: CT head wo con* [id number] 05/28/2022 5:01 PM RADIATION DOSE METRICS: Total DLP (mGy-cm): 1056.88 FINDINGS: Tubes, catheters and devices: Postop change of the left temporal bone with cochlear implant demonstrated. Right anterior aneurysm clip demonstrated, unchanged. Brain: Age related parenchymal volume loss noted. There is decreased attenuation of the periventricular white matter, consistent with chronic microangiopathic white matter disease. No parenchymal edema identified. No intracranial hemorrhage noted. Cerebral ventricles: No ventriculomegaly. Paranasal sinuses: Visualized sinuses are unremarkable. No air fluid levels. Mastoid air cells: Postop change on the left. No mastoid effusion. Bones/joints: Status post right frontal craniotomy. Soft tissues: Unremarkable. CT/CT head wo con* [id number] IMPRESSION: 1. Postop change of the left temporal bone with cochlear implant demonstrated. 2. Right anterior aneurysm clip demonstrated, unchanged. 3. No acute intracranial abnormality demonstrated. 4. There is no interval change from the prior examination. ASSESSMENT: ASPECTS ([place] Stroke Program Early CT Score) is 10.
--- NOTE | 2022-07-01 17:21 | XRR_ITS ---
PROCEDURE INFORMATION: Exam: XR Chest Exam date and time: 07/01/2022 4:41 PM Age: 76 years old Clinical indication: Pain; Other: Gi bleed. AMS TECHNIQUE: Imaging protocol: Radiologic exam of the chest. Views: 1 view. COMPARISON: CR (CHEST, ) 05/28/2022 4:25 PM FINDINGS: Lungs: Mild chronic increased interstitial lung markings. No consolidative pulmonary infiltrates are noted. Pleural spaces: No pleural effusion. No pneumothorax. Heart/Mediastinum: Borderline cardiomegaly is noted. Vasculature: The thoracic aorta is atherosclerotic. Bones/joints: Mild degenerative thoracic spine changes. Chronic deformity of the proximal right humerus consistent with old trauma. XR/XR chest 1V portable [id number] IMPRESSION: No acute abnormality demonstrated.
[2022-07-01 17:32] LABS: Basophils % 1.2 %; Eosinophils # 0.1 10^3/uL (0.0-0.8); Eosinophils % 2.6 %; Hematocrit 30.3 % (37.0-47.0); Hemoglobin 9.5 g/dL (11.5-15.3); Lymphocytes # 0.9 10^3/uL (0.8-4.8); Lymphocytes % 24.8 %; Mean Corpuscular HGB Conc 31.4 g/dL (30.0-36.0); Mean Platelet Volume 9.9 fL (7.4-10.4); Monocytes # 0.4 10^3/uL (0.2-0.9); Monocytes % 10.8 %; Neutrophils # 2.05 10^3/uL (1.8-7.7); Neutrophils % 59.7 %; Nucleated Red Blood Cells % 0 %; Platelet Count 46 10^3/cmm (130-400); Red Blood Count 3.65 10^6/uL (4.1-5.3); Red Cell Distribution Width 15.6 % (12.1-15.1); White Blood Count 3.4 10^3/uL (4.0-10.0)
--- NOTE | 2022-07-01 17:48 | PC.NURSE ---
PRISON CONTACTED REGARDING PT MENTAL STATUS AND LAST KNOWN WELL. [facility] NURSE REPORTS PT NORMALLY ALERT AND ORIENTED. PT ARRIVES TO ED WITH ALTERED MENTATION. PT ALERT BUT DOES NOT SPEAK OR FOLLOW DIRECTION. PT FACE IS SYMMETRICAL. BLOOD GLUCOSE 103. [facility] STAFF REPORTS PT LAST KNOWN WELL 1200 07/01/22
[2022-07-01 17:50] LABS: Troponin(5th) Baseline 21 ng/L (0-10)
[2022-07-01 17:51] LABS: Glucose Point of Care 103 mg/dL (70-110)
--- NOTE | 2022-07-01 17:51 | CTR_ITS ---
PROCEDURE INFORMATION: Exam: CTA Head With Contrast, Arteriography Exam date and time: 07/01/2022 6:12 PM Age: 76 years old Clinical indication: Stroke-like symptoms; Altered mental status/memory loss; Additional info: AMS, acute onset TECHNIQUE: Imaging protocol: Computed tomographic angiography of the head with contrast. Exam focused on the arteries. 3D rendering (Not supervised by radiologist): MIP and/or 3D reconstructed images were created by the technologist. Radiation optimization: All CT scans at this facility use at least one of these dose optimization techniques: automated exposure control; mA and/or kV adjustment per patient size (includes targeted exams where dose is matched to clinical indication); or iterative reconstruction. Contrast material: OMNI 350; Contrast volume: 70 ml; Contrast route: INTRAVENOUS (IV); REPORTING DATA: Count of CT and Cardiac NM exams in prior 12 months: This patient has received 9 known CTs and 0 known cardiac nuclear medicine studies in the 12 months prior to the current study. COMPARISON: CT head wo con* [id number] 07/01/2022 5:39 PM RADIATION DOSE METRICS: Total DLP (mGy-cm): 374.49 FINDINGS: ANTERIOR CIRCULATION: Right internal carotid artery: Intracranial segment is patent with no significant stenosis. No aneurysm. Right middle cerebral artery: No occlusion or significant stenosis. No aneurysm. Right anterior cerebral artery: No occlusion or significant stenosis. No aneurysm. Left internal carotid artery: Intracranial segment is patent with no significant stenosis. No aneurysm. Left middle cerebral artery: No occlusion or significant stenosis. No aneurysm. Left anterior cerebral artery: No occlusion or significant stenosis. No aneurysm. POSTERIOR CIRCULATION: Right vertebral artery: No occlusion or significant stenosis. No aneurysm. Left vertebral artery: No occlusion or significant stenosis. No aneurysm. Basilar artery: No occlusion or significant stenosis. No aneurysm. Right posterior cerebral artery: No occlusion or significant stenosis. No aneurysm. Left posterior cerebral artery: No occlusion or significant stenosis. No aneurysm. Brain: No mass effect or midline shift. Cerebral ventricles: No ventriculomegaly. Bones/joints: Right temporal craniotomy changes with encephalomalacia anterior right temporal lobe unchanged. Soft tissues: Unremarkable. Other findings: Aneurysm clip is seen in the right anterior clinoid region. Within the limits of artifact there is no residual or recurrent aneurysm located in this location. Artifact from the left cochlear implant again visualized. PROCEDURE INFORMATION: Exam: CTA Neck With Contrast Exam date and time: 07/01/2022 6:12 PM Age: 76 years old Clinical indication: Stroke-like symptoms; Altered mental status/memory loss; Additional info: AMS, acute onset TECHNIQUE: Imaging protocol: Computed tomographic angiography of the neck with contrast. 3D rendering (Not supervised by radiologist): MIP and/or 3D reconstructed images were created by the technologist. Radiation optimization: All CT scans at this facility use at least one of these dose optimization techniques: automated exposure control; mA and/or kV adjustment per patient size (includes targeted exams where dose is matched to clinical indication); or iterative reconstruction. Contrast material: OMNI 350; Contrast volume: 70 ml; Contrast route: INTRAVENOUS (IV); REPORTING DATA: Count of CT and Cardiac NM exams in prior 12 months: This patient has received 9 known CTs and 0 known cardiac nuclear medicine studies in the 12 months prior to the current study. COMPARISON: CT head wo con* [id number] 07/01/2022 5:39 PM RADIATION DOSE METRICS: Total DLP (mGy-cm): 374.49 FINDINGS: Right common carotid artery: No stenosis. No dissection or occlusion. Right internal carotid artery: No stenosis of the extracranial segment. No dissection or occlusion. Right external carotid artery: No occlusion or stenosis of the origin. Left common carotid artery: No stenosis. No dissection or occlusion. Left internal carotid artery: No stenosis of the extracranial segment. No dissection or occlusion. Left external carotid artery: No occlusion or stenosis of the origin. Right vertebral artery: No stenosis. No dissection or occlusion. Left vertebral artery: No stenosis. No dissection or occlusion. Thyroid: Rim calcified left thyroid nodule measuring 1 cm. Soft tissues: Normal. No significant soft tissue swelling. Bones/joints: No acute fracture. Pleural spaces: Moderate right pleural effusion with adjacent atelectasis. CT/CT angio headneck* [id number] IMPRESSION: 1. No large vessel occlusion or high-grade stenosis. 2. Previous right paraclinoid aneurysm clipping postoperative changes. No residual recurrent aneurysm identified. IMPRESSION: 1. Negative CTA of the neck. 2. Moderate right pleural effusion with adjacent atelectasis. COMMENTS: Consistent with the [place] [employer]'s Incidental Findings Committee white paper (J Am Misael Radiol 2015): In patients aged 35 years and older with an incidental thyroid nodule equal to or greater than 1.[address], MRI or extrathyroidal US, further evaluation with dedicated thyroid US is recommended for patients with normal life expectancy and without comorbidities. For smaller nodules without suspicious features, no further evaluation or follow up is recommended. REFERENCES: NASCET CRITERIA. The degree of stenosis in the cervical segment of the internal carotid artery is based on NASCET criteria. Normal is no stenosis. Mild is less than 50% stenosis. Moderate is 50-69% stenosis. Severe is 70% to 99% stenosis. Total occlusion is no detectable patent lumen.
--- NOTE | 2022-07-01 17:55 | PC.NURSE ---
STROKE ALERT CALLED PHYSICIAN AWARE
[2022-07-01 17:57] LABS: INR 1.34 (0.8-1.2); Partial Thromboplastin Time 32.4 SECONDS (23.9-36.7)
[2022-07-01 18:02] LABS: Ammonia 100 umol/L (11-51)
[2022-07-01] MEDS: iohexol 350 mg/mL 500 mL Btl (per mL) IV (18:16)
[2022-07-01 18:37] LABS: Procalcitonin 0.14 ng/mL (0-0.5); Thyroid Stimulating Hormone 1.31 uIU/mL (0.27-4.20)
[2022-07-01 18:49] LABS: ABG PCO2 27.1 mmHg (35-45); ABG PH Result 7.48 (7.35-7.45); Arterial Blood Gas Hematocrit 27.6 % (37-47); Base Excess ABG -2.4 mmol/L (-2.0-2.0); Blood Gas Allen Test Pos; Blood Gas Operator Identificat CAK; Blood Gas Sample Site Radial, left; Blood Gas Sample Type Arterial; HCO3 ABG 20.4 mmol/L (22-26); Oxygen Device ROOM AIR; PO2 ABG 81.4 mmHg (80.0-100.0)
[2022-07-01 18:53] LABS: Alanine Aminotransferase 7 U/L (0-33); Albumin Level 2.9 g/dL (3.5-5.2); Alkaline Phosphatase 150 U/L (35-105); Anion Gap 17.6 (5-19); Aspartate Amino Transferase 17 U/L (0-32); Blood Urea Nitrogen 17 mg/dL (8-23); Calcium 8.2 mg/dL (8.5-10.5); Carbon Dioxide 19 mmol/L (22-29); Chloride 105 mmol/L (98-107); Globulin 3.3 g/dL (1.3-4.6); Glucose 100 mg/dL (65-115); Lipase 27 U/L (13-60); Osmolality Calculated 286 mOsm/kg (285-295); Potassium 4.6 mmol/L (3.5-5.1); Sodium 137 mmol/L (136-145); Total Bilirubin 0.9 mg/dL (0.15-1.2); Total Protein 6.2 g/dL (6.6-8.7)
--- NOTE | 2022-07-01 19:28 | ECG_ITS ---
[facility] Test Date: 2022-07-01 Pat Name: Martha Moore Department: Room: Gender: Female Manager City: : 1945 Requested By: Eris Escobedo Order Number: [id number] Santiago MD: Sami Angel M.D. Measurements Intervals Lissie Rate: 84 P: 71 [place]: 176 QRS: -35 QRSD: 94 T: 61 QT: 365 QTc: 434 Interpretive Statements SINUS RHYTHM LEFT AXIS DEVIATION [QRS AXIS < -30] POSSIBLE ANTERIOR MYOCARDIAL INFARCTION , OF INDETERMINATE AGE [30 ms Q WAVE IN V3/V4, OR R < 0.2 mV IN V4] Compared to ECG 03/14/2022 18:41:32 Left-axis deviation now present Myocardial infarct finding still present Electronically Signed On 07-01-2022 21:41:49 CDT by Sami Angel M.D. [email or web address]
[2022-07-01] MEDS: morphine 4 mg/mL SDV 1 mL 2 MG IVP (20:06)
--- NOTE | 2022-07-01 20:29 | PM.HP ---
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 coli UTI, bacteremia who was recently discharged from the hospital on 03 June sent to long term with follow-up with orthopedic surgery at [facility] as an outpatient for right arm fracture and destructive right hip fracture was brought to the hospital today for altered mental status. History is limited and paperwork was not sent with patient from long term today. Her insulin was cut down to 10 units last time and Bumex was stopped. Lasix was given to her as a as needed due to dehydration. There is report that she was given 2 units of blood yesterday and then taken back to long term and overnight she became altered. Unsure if patient is taking lactulose or not. I will try to call long term to obtain more information. ED course: 147/61 heart rate 18, pulse 82, temperature 99.4. Head CT was done which was negative for acute stroke or bleed. Patient is pancytopenic with a platelet of 54. tPA was not given due to thrombocytopenia. Suspicion of stroke is low at this time. Ammonia 100. Patient is moaning in pain and saying please do not. Probably secondary to her previous fractures. Hemoglobin 9.5 at this time. Unable to obtain any history at this time due to altered mental status. Chest x-ray shows no acute abnormality. WBC 3.4, INR 1.34, baseline troponin 21. Patient has out of hospital DNR form in her paperwork at this time there is present at bedside. Medications/Allergies Home Medications Medication Instructions Recorded Confirmed Last Taken Type ferrous sulfate 325 mg (65 mg 325 mg PO BID@,06/11/21 07/01/22 06/30/22 History iron) tablet insulin lispro 100 unit/mL See Rx Instructions .Route .COMPLEX 06/11/21 07/01/22 06/30/22 History subcutaneous pen (Humalog KwikPen (U-100) Insulin) acetaminophen 500 mg tablet 1,000 mg PO Q6H PRN Pain 06/16/21 07/01/22 06/30/22 History magnesium hydroxide 400 mg/5 mL 30 ml PO DAILY PRN Constipation 06/16/21 07/01/22 06/30/22 History oral suspension (Milk of Magnesia) ondansetron HCl 8 mg tablet 8 mg PO Q8H PRN Nausea 08/22/21 07/01/22 06/30/22 History bisacodyl 10 mg rectal suppository 10 mg [place] DAILY PRN Constipation 03/15/22 07/01/22 06/30/22 History (Dulcolax (bisacodyl)) [id number]-lwb-qnxgt ac 400 1 tab PO DAILY 03/15/22 07/01/22 06/30/22 History mcg-calcium carb 500 mg-vit K1 20 mcg tablet (Women's 50 Plus Daily Formula) sodium phosphates 19 gram-7 118 ml WI DAILY PRN Constipation 03/15/22 07/01/22 06/30/22 History gram/118 mL enema (Fleet Enema) mirtazapine 7.5 mg tablet 7.5 mg PO BEDTIME@19 #30 tabs 05/26/22 07/01/22 06/30/22 Rx pantoprazole 40 mg tablet,delayed 40 mg PO BID #60 tabs 05/26/22 07/01/22 06/30/22 Rx release rifaximin 550 mg tablet (Xifaxan) 550 mg PO BID #60 tabs 05/26/22 07/01/22 06/30/22 Rx furosemide 20 mg tablet (Lasix) 20 mg PO DAILY PRN weight gain #30 05/31/22 07/01/22 06/30/22 Rx tabs insulin glargine 100 unit/mL (3 10 unit (0.1 mL) SUBCUT DAILY@08 05/31/22 07/01/22 06/30/22 Rx mL) subcutaneous pen (Lantus #15 mL Solostar U-100 Insulin) oxycodone 5 mg tablet 5 mg PO Q6H PRN pain 7 days #20 05/31/22 07/01/22 06/30/22 Rx tabs potassium chloride 10 mEq 10 meq PO PRN PRN With Lasix only 05/31/22 07/01/22 06/30/22 Rx tablet,extended release #30 tabs spironolactone 25 mg tablet 25 mg PO DAILY@07 #30 tabs 05/31/22 07/01/22 06/30/22 Rx lactulose 10 gram oral packet 10 g PO DAILY #15 ea 06/03/22 07/01/22 06/30/22 Rx bumetanide 1 mg tablet 1 mg PO DAILY 07/01/22 07/01/22 Unknown History Allergies Allergy/AdvReac Type Severity Reaction Status Date / Time aspirin Allergy Intermediate rash Verified 06/30/22 08:58 atropine Allergy Intermediate unknown Verified 06/30/22 08:58 tositumomab iodine-131 Allergy Mild ALGY-Hives Verified 06/30/22 08:58 ciprofloxacin Allergy ALGY-Rash Verified 06/30/22 08:58 hydrocodone Allergy Unknown Verified 06/30/22 08:58 iodine Allergy ALGY-Hives Verified 06/30/22 08:58 meperidine [From Demerol] Allergy ADR-Nausea Verified 06/30/22 08:58 Sulfa (Sulfonamide Allergy ALGY-Rash Verified 06/30/22 08:58 Antibiotics) PFSH Acute PFSH: Medical History (Updated 07/01/22 @ 21:38 by Jennifer Tellez MD) Abdominal ascites Abdominal pain Abnormal colonoscopy Acute cystitis Altered mental status Anemia Anemia Avascular necrosis of femur head, right AVM (arteriovenous malformation) AVM (arteriovenous malformation) of colon with hemorrhage AVM (arteriovenous malformation) of colon with hemorrhage C. difficile colitis Cerebral aneurysm Closed fracture of neck of right humerus Closed fracture of right distal femur Diverticulosis Femur fracture, right Fever Fluid overload Fracture of distal end of right radius GI bleed Esophageal variceal banding on 2 occasions in the past, EGD colonoscopy October 2015 upper endoscopy showed esophageal varices with no bleeding or stigmata of bleeding. Colonoscopy showed multiple AVMs in the ascending and proximal transverse colon which were cauterized. Extensive diverticulosis with internal and external hemorrhoids were noted. 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) Metabolic acidosis MENARD (nonalcoholic steatohepatitis) Pancytopenia Portal hypertension EGD esophageal banding on 03/25/16 she has been transfused multiple times Right leg swelling Sepsis Type 2 diabetes mellitus Urinary tract infection Surgical History S/P endoscopy Family History Other Family history non-contributory Social History Smoking and tobacco status: never smoked Alcohol intake: never Housing: House Vitals/I&O/Wt Last Vital Signs Temp 99.4 F 07/01/22 17:17 Pulse 88 07/01/22 20:14 Resp 16 07/01/22 20:14 BP 146/62 07/01/22 20:14 Pulse Ox 98 07/01/22 20:14 O2 Del Method 07/01/22 20:14 Weight last 48 hrs Weight 54.431 kg Physical Exam Narrative: General: Alert however not oriented to time place or person, patient seen laying in bed moaning in pain. Keeps repeating please do not. HEENT: Normocephalic, atraumatic, EOMI, no acute respiratory distress. Saturating 98% on room air. Cardio: Regular rate rhythm, normal S1-S2 Respiratory: Clear to auscultation bilaterally no wheezes no rhonchi. GI: Abdomen soft, nondistended, unsure if there is any pain as she is constantly saying please do not during entire examination, does not grimace to palpation however. Bowel sounds + Extremities: In a contracted position in bed, no edema noted. Visible skin intact. 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 Diabetes mellitus complication status: without complication Qualified Code(s): E11.9 - Type 2 diabetes mellitus without complications; Z79.4 - 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 Check urinalysis, urine culture, blood culture, procalcitonin ? Place on rectal lactulose twice daily ? CT head negative for acute bleed ? Check vitamin B12, TSH ? Continue home dose rifaximin 550 twice daily ? On mechanical soft diet at home however very altered at this time. I will make her n.p.o. until bedside swallow evaluation can be done when she is more interactive ? Recheck labs in a.m. CBC, CMP, magnesium ? Hold spironolactone at this time ? Placed on Protonix 40 IV twice daily, Zofran 4 mg every 6 hours as needed ? Hold Lasix and bumetanide at this time. Patient does appear dehydrated ? Hold subcu insulin. Blood sugar 144 at this time ? We will place on every 6 hours blood glucose check. ? Continue on mirtazapine 7.5 at bedtime. - Start on vanc and meropenem - CTA Head and neck negative - Unsure if blood transfusion was given as routine labs were checked or there was evidence of bleed. We will check HnH q8 hours and transfuse if necessary. - Check Ct chest abd pelvis w/o contrast - Will use morphine 1 mg q4 hours as needed for pain secondary to previous fractures. 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
[2022-07-01] MEDS: haloperidol inj 5 mg/mL INJ 1 mL 1 MG IVP (20:35)
[2022-07-01 21:33] LABS: Add Urine Microscopic? YES; Bilirubin Urine Neg (Negative); Blood Urine 3+ (Negative); Glucose Urine UA Norm (Normal); Ketones Urine 1+ (Negative); Leukocyte Esterase Urine 2+ (Negative); Nitrate Urine Negative (Negative); Protein Urine 1+ (Negative); Urine Appearance Turbid (CLEAR); Urine Color Yellow (Yellow); Urobilinogen Urine Norm (Negative); pH Urine 7 (5-7)
[2022-07-01 21:35] LABS: RBC Urine >100 /hpf (0-2); WBC Urine >100 /hpf (0-5)
[2022-07-01 21:38] LABS: Squamous Epithelial Cell Urine 0-4 /hpf (0-5)
[2022-07-01 21:39] LABS: Add Urine Culture? Yes; Bacteria Urine 3+ /hpf
[2022-07-01 21:44] LABS: Estmated Average Glucose 108; Hemoglobin A1C 5.4 % (4.0-6.0)
[2022-07-01 21:45] LABS: Procalcitonin 0.12 ng/mL (0-0.5)
[2022-07-01] MEDS: lactulose oral liq 20 gm/30 mL UDC 200 GM PR (21:48)
[2022-07-01] MEDS: sodium chloride 0.9% 1,000 ML 75 ML IV (21:49)
[2022-07-01 21:50] LABS: Thyroid Stimulating Hormone 1.12 uIU/mL (0.27-4.20)
[2022-07-01] MEDS: pantoprazole 40 mg SDV IVP (21:50)
[2022-07-01] MEDS: meropenem 1,000 MG in sodium chloride 0.9% (plus) 50 ML 100 MG IV (22:01)
[2022-07-01 22:16] LABS: Hematocrit 31.2 % (37.0-47.0); Hemoglobin 9.5 g/dL (11.5-15.3)
--- NOTE | 2022-07-01 22:27 | PC.PHAR ---
Pharmacokinetic dosing service Date: 07/01/22 Time: 2226 Objective: Patient: Martha Moore Floor: ICU-2 Age: 76 yo Serum creatinine: 0.7 mg/dL Height: 63.0 Inches Weight (kg): 54.431 Diagnosis: Relevant medical/social history: Cultures and sensitivities: Other labs: Assessment: IBW (kg): 52.40 Dosing wt(kg): 54.431 Estimated Creatinine clearance (ml/min): 55.7 CRCL method: Cockcroft and Gault using ibw(default). Drug selected: Vancomycin Loading dose (mg): 0 Vd (liters): 49.0 (factor used: 0.9 L/kg) Sourav (hr-1): 0.051 Half life (hrs): 13.59 Recommended dose: 1000 mg Interval: 18 hrs Infusion time (hrs): 1.5 Predicted peak (mcg/mL): 32.7 Predicted trough (mcg/mL): 14.10 Total body weight is being used for vancomycin dosing. Renal function is stable [ ] /unstable [ ] Recommendations: Give Vancomycin 1000 mg q 18 hrs with an expected Cpeak of 32.7 mcg/ml and an expected Ctrough of 14.10 mcg/ml Renal dosing of other antibiotics (review renal dosing of other medications and list guidelines here): Thank you for the consult, will continue to follow. Signature: Sherrie uRiz [facility]
[2022-07-01 23:24] LABS: Hematocrit 31.7 % (37.0-47.0); Hemoglobin 9.9 g/dL (11.5-15.3)
--- NOTE | 2022-07-01 23:24 | ECG_ITS ---
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 Measurements Intervals Council Rate: 106 P: 72 MS: 157 QRS: -39 QRSD: 94 T: 21 QT: 333 QTc: 444 Interpretive Statements SINUS TACHYCARDIA LEFT AXIS DEVIATION [QRS AXIS < -30] POSSIBLE ANTERIOR MYOCARDIAL INFARCTION , PROBABLY OLD [30 ms Q WAVE IN V3/V4, OR R < 0.2 mV IN V4] Compared to ECG 07/01/2022 19:28:25 Sinus rhythm no longer present Myocardial infarct finding still present Electronically Signed On 07-02-2022 21:46:33 CDT by Sami Angel M.D. [id number]
[2022-07-01] MEDS: vancomycin 1,000 MG in sodium chloride 0.9% 250 ML 250 MG IV (23:26)
[2022-07-02] VITALS (33 sets, daily range): BP systolic 109–168; BP diastolic 52–97; PULSE 87–109; RESP 16–34; TEMP 36.5; O2SAT 96–100
[2022-07-02 00:31] LABS: Troponin 5 6HR 20.74 ng/L (0-10); Troponin 5 6HR Delta -0.26 ng/L (0-12)
--- NOTE | 2022-07-02 00:33 | PM.CONSULT ---
Providers/Reason For Consult Consulting Physician/Specialty*: Hospitalist Reason for Consult*: GI bleed Attending Physician: Jennifer Tellez MD Primary Care Provider: Che Holt DO History of Present Illness History of Present Illness Martha Moore is a 76 year old female Who presents to the hospital with an altered mental status. The patient has a history of cirrhosis. Cirrhosis seems to be secondary to LLOYD. The patient has a history of esophageal varices which was documented several years ago. There is an extremely complex patient. The patient will need her coagulopathy corrected. The patient will need her altered mental status also corrected. This is probably secondary to Her elevated ammonia level. I believe this patient needs to be transferred to a higher level care. The patient needs a fire and safety helper as well as a critical care vacuum metalizer operator. The patient will probably require invasive endoscopy?there still banding versus control of ulcer bleeding. Finally this patient may benefit from a TIPS procedure if she does have esophageal varices which were bleeding. Thank you so much for this consult. Once again, I believe this patient would benefit from a transfer to a tertiary care facility. Medications/Allergies Home Medications Medication Instructions Recorded Confirmed Last Taken Type ferrous sulfate 325 mg (65 mg 325 mg PO BID@,17 06/11/21 07/01/22 06/30/22 History iron) tablet insulin lispro 100 unit/mL See Rx Instructions .Route .COMPLEX 06/11/21 07/01/22 06/30/22 History subcutaneous pen (Humalog KwikPen (U-100) Insulin) acetaminophen 500 mg tablet 1,000 mg PO Q6H PRN Pain 06/16/21 07/01/22 06/30/22 History magnesium hydroxide 400 mg/5 mL 30 ml PO DAILY PRN Constipation 06/16/21 07/01/22 06/30/22 History oral suspension (Milk of Magnesia) ondansetron HCl 8 mg tablet 8 mg PO Q8H PRN Nausea 08/22/21 07/01/22 06/30/22 History bisacodyl 10 mg rectal suppository 10 mg [place] DAILY PRN Constipation 03/15/22 07/01/22 06/30/22 History (Dulcolax (bisacodyl)) kljexfie-gxu-boyxn ac 400 1 tab PO DAILY 03/15/22 07/01/22 06/30/22 History mcg-calcium carb 500 mg-vit K1 20 mcg tablet (Women's 50 Plus Daily Formula) sodium phosphates 19 gram-7 118 ml [place] DAILY PRN Constipation 03/15/22 07/01/22 06/30/22 History gram/118 mL enema (Fleet Enema) mirtazapine 7.5 mg tablet 7.5 mg PO BEDTIME@19 #30 tabs 05/26/22 07/01/22 06/30/22 Rx pantoprazole 40 mg tablet,delayed 40 mg PO BID #60 tabs 05/26/22 07/01/22 06/30/22 Rx release rifaximin 550 mg tablet (Xifaxan) 550 mg PO BID #60 tabs 05/26/22 07/01/22 06/30/22 Rx furosemide 20 mg tablet (Lasix) 20 mg PO DAILY PRN weight gain #30 05/31/22 07/01/22 06/30/22 Rx tabs insulin glargine 100 unit/mL (3 10 unit (0.1 mL) SUBCUT DAILY@08 05/31/22 07/01/22 06/30/22 Rx mL) subcutaneous pen (Lantus #15 mL Solostar U-100 Insulin) oxycodone 5 mg tablet 5 mg PO Q6H PRN pain 7 days #20 05/31/22 07/01/22 06/30/22 Rx tabs potassium chloride 10 mEq 10 meq PO PRN PRN With Lasix only 05/31/22 07/01/22 06/30/22 Rx tablet,extended release #30 tabs spironolactone 25 mg tablet 25 mg PO DAILY@07 #30 tabs 05/31/22 07/01/22 06/30/22 Rx lactulose 10 gram oral packet 10 g PO DAILY #15 ea 06/03/22 07/01/22 06/30/22 Rx bumetanide 1 mg tablet 1 mg PO DAILY 07/01/22 07/01/22 Unknown History Allergies Allergy/AdvReac Type Severity Reaction Status Date / Time aspirin Allergy Intermediate rash Verified 06/30/22 08:58 atropine Allergy Intermediate unknown Verified 06/30/22 08:58 tositumomab iodine-131 Allergy Mild ALGY-Hives Verified 06/30/22 08:58 ciprofloxacin Allergy ALGY-Rash Verified 06/30/22 08:58 hydrocodone Allergy Unknown Verified 06/30/22 08:58 iodine Allergy ALGY-Hives Verified 06/30/22 08:58 meperidine [From Demerol] Allergy ADR-Nausea Verified 06/30/22 08:58 Sulfa (Sulfonamide Allergy ALGY-Rash Verified 06/30/22 08:58 Antibiotics) Current Medications Generic Name Dose Route Start Last Admin Trade Name Freq PRN Reason Stop Dose Admin Sodium Chloride 1,000 mls @ 75 mls/hr 07/01/22 20:45 07/01/22 21:49 Sodium Chloride 0.9% IV 75 mls/hr .[id number] RAMYA Administration Meropenem 1,000 mg/ Sodium 50 mls @ 100 mls/hr 07/01/22 21:45 07/01/22 22:41 Chloride IV Infused Q8H RAMYA Infusion Protocol Vancomycin HCl 1,000 mg/ 250 mls @ 250 mls/hr 07/01/22 23:00 07/01/22 23:26 Sodium Chloride IV 250 mls/hr Q18H RAMYA Administration Pantoprazole Sodium 40 mg 07/01/22 21:28 07/01/22 21:50 Pantoprazole 40 Mg Sdv IVP 40 mg Q12H RAMYA Administration PFSH Acute PFSH: Medical History (Updated 07/01/22 @ 21:38 by Jennifer Tellez MD) Abdominal ascites Abdominal pain Abnormal colonoscopy Acute cystitis Altered mental status Anemia Anemia Avascular necrosis of femur head, right AVM (arteriovenous malformation) AVM (arteriovenous malformation) of colon with hemorrhage AVM (arteriovenous malformation) of colon with hemorrhage C. difficile colitis Cerebral aneurysm Closed fracture of neck of right humerus Closed fracture of right distal femur Diverticulosis Femur fracture, right Fever Fluid overload Fracture of distal end of right radius GI bleed Esophageal variceal banding on 2 occasions in the past, EGD colonoscopy October 2015 upper endoscopy showed esophageal varices with no bleeding or stigmata of bleeding. Colonoscopy showed multiple AVMs in the ascending and proximal transverse colon which were cauterized. Extensive diverticulosis with internal and external hemorrhoids were noted. 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 (LLOYD) Metabolic acidosis LLOYD (nonalcoholic steatohepatitis) Pancytopenia Portal hypertension EGD esophageal banding on 03/25/16 she has been transfused multiple times Right leg swelling Sepsis Type 2 diabetes mellitus Urinary tract infection Surgical History S/P endoscopy Family History Other Family history non-contributory Social History Smoking and tobacco status: never smoked Alcohol intake: never Housing: House Vitals/I&O/Wt Last Vital Signs Temp 98.6 F 07/01/22 21:30 Pulse 109 H 07/02/22 00:00 Resp 18 07/02/22 00:00 BP 149/82 07/02/22 00:00 Pulse Ox 100 07/02/22 00:00 O2 Del Method 07/01/22 21:30 07/01/22 07/01/22 07/02/22 14:59 22:59 06:59 Intake Total 50 / 50 Balance 50 / 50 Weight last 48 hrs Weight 120 lb Physical Exam Urinary Catheter Management: Meyer: Cath Placed During This Visit: yes Urinary Catheter Date of Insertion: 07/01/22 Urinary Catheter Time of Insertion: 20:45 Data 07/01/22 23:07 07/01/22 17:20 Micro: Microbiology 07/01/22 17:35 Blood Culture - Preliminary Blood SPECIMEN COLLECTED 07/01/22 17:28 Blood Culture - Preliminary Blood SPECIMEN COLLECTED Coding Level of Care Code Acute Code for Chg Fwelmer
[2022-07-02 00:56] LABS: Thyroid Stimulating Hormone 1.45 uIU/mL (0.27-4.20); Vitamin B12 911 pg/mL (232-1245)
[2022-07-02] MEDS: morphine 4 mg/mL SDV 1 mL 1 MG IVP ×3 (01:35→21:01)
[2022-07-02 01:53] LABS: Glucose Point of Care 208 mg/dL (70-110)
[2022-07-02] MEDS: haloperidol inj 5 mg/mL INJ 1 mL 2 MG IM ×2 (03:03→20:13)
[2022-07-02 04:13] LABS: Basophils % 0.7 %; Eosinophils % 0.2 %; Hematocrit 27.9 % (37.0-47.0); Hemoglobin 8.7 g/dL (11.5-15.3); Lymphocytes # 0.5 10^3/uL (0.8-4.8); Lymphocytes % 9.1 %; Mean Corpuscular HGB Conc 31.2 g/dL (30.0-36.0); Mean Corpuscular Hemoglobin 26.4 pg (28.0-34.0); Mean Corpuscular Volume 84.8 fl (81-99); Mean Platelet Volume 9.7 fL (7.4-10.4); Monocytes # 0.5 10^3/uL (0.2-0.9); Monocytes % 8.6 %; Neutrophils % 80.7 %; Nucleated Red Blood Cells % 0 %; Platelet Count 57 10^3/cmm (130-400); Red Blood Count 3.29 10^6/uL (4.1-5.3); Red Cell Distribution Width 15.9 % (12.1-15.1); White Blood Count 5.9 10^3/uL (4.0-10.0)
[2022-07-02 04:25] LABS: Alanine Aminotransferase 7 U/L (0-33); Albumin Level 2.6 g/dL (3.5-5.2); Alkaline Phosphatase 130 U/L (35-105); Anion Gap 17.2 (5-19); Aspartate Amino Transferase 17 U/L (0-32); Blood Urea Nitrogen 18 mg/dL (8-23); Carbon Dioxide 16 mmol/L (22-29); Chloride 105 mmol/L (98-107); Globulin 3.8 g/dL (1.3-4.6); Glucose 188 mg/dL (65-115); Magnesium 1.7 mg/dL (1.7-2.3); Osmolality Calculated 285 mOsm/kg (285-295); Potassium 4.2 mmol/L (3.5-5.1); Sodium 134 mmol/L (136-145); Total Bilirubin 1.2 mg/dL (0.15-1.2); Total Protein 6.4 g/dL (6.6-8.7)
[2022-07-02 04:29] LABS: Glucose Point of Care 215 mg/dL (70-110)
[2022-07-02] MEDS: meropenem 1,000 MG in sodium chloride 0.9% (plus) 50 ML 100 MG IV ×3 (04:50→21:00)
[2022-07-02 06:29] LABS: Hematocrit 25.3 % (37.0-47.0)
--- NOTE | 2022-07-02 06:40 | PC.NURSE ---
2310 Dr. Tellez at bedside to observe bloody stool. Orders for T&S and 2 units of PRBC on hold. Plan to transfuse when Hgb is less than or equal 7. 0250 Patient yelling and inconsolable even after morphine administration. This was reported to Dr. Tellez. Haldol ordered and administered. Patient rested comfortably. [address] orders with Dr. Tellez. Ok to hold CT pending patient transfer to [facility].
[2022-07-02 08:49] LABS: Glucose Point of Care 187 mg/dL (70-110)
[2022-07-02] MEDS: pantoprazole 40 mg SDV IVP ×2 (10:36→21:02)
[2022-07-02 12:32] LABS: Hematocrit 26.2 % (37.0-47.0)
[2022-07-02 15:10] LABS: Glucose Point of Care 191 mg/dL (70-110)
[2022-07-02] MEDS: sodium chloride 0.9% 1,000 ML 75 ML IV (15:13)
[2022-07-02] MEDS: vancomycin 1,000 MG in sodium chloride 0.9% 250 ML 250 MG IV (17:22)
[2022-07-02 18:10] LABS: Hematocrit 25.1 % (37.0-47.0); Hemoglobin 7.6 g/dL (11.5-15.3)
--- NOTE | 2022-07-02 21:33 | PC.NURSE ---
EMS picked pt up tp bring to [facility] in [place]. Pt had pillow and dentures with her. I called Mely Ramirez who will be receiving pt at [facility] to let her know that patient just left and is headed that way.
== END 2022-07-02 21:40 | disposition short-term general hospital (02) | DRG 378 ==
LOC: ER 19:22 → ICU 20:33
PROVIDERS: Admitting Provider Internal Medicine; Emergency Provider Emergency Medicine; PCP Family Medicine; Visit Provider Internal Medicine
DX: K92.2 Gastrointestinal hemorrhage, unspecified (principal); D61.818 Other pancytopenia; K76.6 Portal hypertension; N39.0 Urinary tract infection, site not specified; K74.60 Unspecified cirrhosis of liver; K75.81 Nonalcoholic steatohepatitis (NASH); Z87.440 Personal history of urinary (tract) infections; Z66 Do not resuscitate; Q27.39 Arteriovenous malformation, other site; K57.90 Diverticulosis of intestine, part unspecified, without perforation or abscess without bleeding; D50.0 Iron deficiency anemia secondary to blood loss (chronic); E11.9 Type 2 diabetes mellitus without complications; K76.82 Hepatic encephalopathy
CPT/HCPCS: 36415; 36416; 36430; 36600; 51702; 70450; 70496; 70498; 71045; 80053; 81001; 82140; 82607; 82803; 82962; 83036; 83690; 83735; 84145; 84443; 84484; 85014; 85018; 85025; 85610; 85730; 86140; 86850; 86900; 86905; 86920; 87040; 87086; 87106; 93005; 96372; 96374; 96375; 99285; C9113; J1630; J2185; J2270; J3370; J7030; J7050; P9016; Q9967